=== PATIENT | male | born 1945 | race Caucasian/White ===

== ENCOUNTER → 2018-06-25 08:31 | Outpatient (CLI) | payer MEDICARE, SELFPAY ==
[2018-06-25 10:47] LABS: ALB/GLOB Ratio 0.8 RATIO (0.9-2.4); AST(SGOT) 17 U/L (15-37); Alanine Aminotransfer ALT/SGPT 26 U/L (16-61); Albumin, Serum 3.4 g/dL (3.2-5.0); Alkaline Phosphatase 98 U/L (45-117); Anion Gap 8 (5-15); BUN 21 mg/dL (7-18); BUN/Creat Ratio 19.8 RATIO (10-20); Calcium,Total 8.4 mg/dL (8.5-10.1); Chloride 107 mmol/L (98-107); Cholesterol 159 mg/dL (200); Creatinine, Serum 1.06 mg/dL (0.70-1.30); EST Glomerular Filtration Rate 73 mL/min (>60); Est Glom Filt Rate - Afr Amer 88 mL/min (>60); Globulin 4.1 g/dL (2.2-4.2); Glucose 109 mg/dL (74-106); High Density Lipoprotein 41 mg/dL; Potassium 4.1 mmol/L (3.5-5.1); Protein, Total 7.5 g/dL (6.4-8.2); Sodium Level 140 mmol/L (136-145); T4 Free Direct 0.96 ng/dL (0.76-1.46); Thyroid Stim Hormone (TSH) 2.77 uIU/mL (0.358-3.74); Triglycerides 106 mg/dL; Very Low Density Lipoprotein 21 mg/dL (5-40)
== END ==
PROVIDERS: Family Provider Family Medicine; PCP Family Medicine; Visit Provider Family Medicine
DX: I10 Essential (primary) hypertension (principal); E78.2 Mixed hyperlipidemia; E03.9 Hypothyroidism, unspecified
CPT/HCPCS: 36415; 80053; 80061; 84439; 84443

== ENCOUNTER → 2018-12-27 10:41 | Outpatient (CLI) | payer MEDICARE, SELFPAY ==
[2016-10-24 03:25] VITALS: BMI 29.8
--- NOTE | 2018-12-27 10:47 | RAD_ITS ---
STUDY: X-RAY - SOFT TISSUE NECK REASON FOR EXAM: Male, 73 years old. Right-sided neck swelling for one month TECHNIQUE: 2 view(s) of the neck were obtained. COMPARISON: None. FINDINGS: Normal visualized nasopharynx, oropharynx, hypopharynx. Normal epiglottis. Normal visualized subglottic tracheal air column. Normal prevertebral soft tissue structures. There are degenerative changes of the cervical spine with cervical spondylosis. The soft tissue structures are unremarkable. Remote deformity of the right second rib. RAD/Neck for Soft Tissue IMPRESSION: No soft tissue abnormalities are detected in the neck. Electronically Signed: Guzman Velazco MD at 2:42 EDT Tel , Service support ,
[2018-12-27 12:46] LABS: Absolute Lymphocyte Count 1.32 X10^3/ul (0.83-4.51); Absolute Neutrophil Count 8.2 X10^3/uL (2.0-7.7); Basophil# 0.05 X10^3/uL; Basophil% 0.5 % (0-1); Eosinophil# 0.32 X10^3/uL; Eosinophils% 2.9 % (0-5); Erythrocyte Sedimentation Rate 26 mm/hr (0-20); Hemoglobin 13.3 g/dl (13.0-16.5); Lymphocyte # 1.32 X10^3/ul (4.0); Lymphocyte % 12.1 % (19-41); Mean Corp Hgb Conc 31.7 g/gl (32-36); Mean Corpuscular Hgb 28.1 pg (27.0-32.0); Mean Corpuscular Volume 88.8 fL (80-94); Mean Platelet Vol. 9.3 fl (6.2-12.0); Monocyte# 0.93 X10^3/uL; Monocyte% 8.6 % (0-10); Neutrophil # 8.21 X10^3/uL (2.7-7.7); Neutrophil % 75.5 % (47-70); Platelet Count 353 K/mm3 (150-450); RBC Distribution Width SD 38.1 fl (35.1-43.9); Red Blood Count 4.73 M/mm3 (4.6-6.2); White Blood Count 10.9 K/mm3 (4.4-11.0)
[2018-12-27 12:53] LABS: POSITIVE COUNT NO; POSITIVE DIFFERENTIAL NO; POSITIVE MORPHOLOGY NO
[2018-12-27 12:54] LABS: Vitamin B12 957 pg/mL (211-911); Vitamin D,25 Hydroxy 52.5 ng/mL (29.95-100.01)
[2018-12-27 12:57] LABS: ALB/GLOB Ratio 0.7 RATIO (0.9-2.4); AST(SGOT) 18 U/L (15-37); Alanine Aminotransfer ALT/SGPT 28 U/L (16-61); Albumin, Serum 3.3 g/dL (3.2-5.0); Alkaline Phosphatase 116 U/L (45-117); Anion Gap 4 (5-15); BUN 26 mg/dL (7-18); BUN/Creat Ratio 25.7 RATIO (10-20); Chloride 101 mmol/L (98-107); Creatinine, Serum 1.01 mg/dL (0.70-1.30); EST Glomerular Filtration Rate 77 mL/min (>60); Est Glom Filt Rate - Afr Amer 93 mL/min (>60); Glucose 117 mg/dL (74-106); Potassium 3.5 mmol/L (3.5-5.1); Protein, Total 8.3 g/dL (6.4-8.2); Sodium Level 136 mmol/L (136-145); Thyroid Stim Hormone (TSH) 3.17 uIU/mL (0.358-3.74)
== END ==
PROVIDERS: Family Provider Family Medicine; PCP Family Medicine; Referring Provider Family Medicine; Visit Provider Family Medicine
DX: R59.0 Localized enlarged lymph nodes (principal); R53.83 Other fatigue
CPT/HCPCS: 36415; 70360; 80053; 82306; 82607; 84403; 84443; 85025; 85652; 86140

== ENCOUNTER → 2018-12-30 15:32 | Outpatient (CLI) | payer MEDICARE, SELFPAY ==
--- NOTE | 2018-12-30 15:34 | CT_ITS ---
We are attempting to reach Lisandro Zaldivar MD to discuss findings. An addendum with communication details will be sent when the communication is complete. STUDY: CT SOFT TISSUE NECK WITH CONTRAST REASON FOR EXAM: Male, 73 years old. Right-sided neck mass for 2 months RADIATION DOSAGE (If Supplied By Facility): CTDIvol = ( 23.05 ) mGy, DLP = ( 702.29 ) mGycm TECHNIQUE: The patient was scanned in a multi-detector CT scanner. High resolution transaxial imaging was performed following intravenous administration of Isovue 300 75 IV. Sagittal and coronal images were reconstructed. Individualized dose optimization techniques were used for this CT. COMPARISON: None. FINDINGS: SUPRAHYOID HEAD AND NECK ACCESS SERVICES ASSISTANT SPACE (INCLUDING SUPRAZYGOMATIC PORTION): Normal with no evidence of an accessory parotid lobe. No calcification in parotid duct. PARAPHARYNGEAL SPACE: Normal and symmetric. No evidence of asymmetric pterygoid plexus. RETROPHARYNGEAL SPACE: Normal with no enlarged nodes of Rouvier laterally CAROTID SPACE: Normal PERIVERTEBRAL SPACE: The prevertebral and paraspinal components are normal. PAROTID SPACE: Negative PHARYNGEAL MUCOSAL SPACE: The nasopharyngeal and oropharyngeal spaces including the tongue base are normal with no tonsillitis, adenoidal hypertrophy or any neoplastic processes. ORAL CAVITY : The mucosal surfaces including the anterior two thirds of the tongue and the submandibular and sublingual spaces are normal INFRAHYOID HEAD AND NECK: VISCERAL SPACE: The thyroid, trachea, esophagus, larynx and hypopharynx are normal. THE CAROTID, RETROPHARYNGEAL, PERIVERTEBRAL and POSTERIOR CERVICAL SPACES (Containing The Spinal Accessory Lymph Nodes): Normal . ORBITS AND PARANASAL SINUSES: Negative CERVICAL LYMPH NODES: There is adenopathy in the following places Level 3 right side: 4. Centimeter partially necrotic lymph node Level 6 right side (right paratracheal): 3.1 x 2.8 cm partially necrotic lymph node. Level 7 (superior mediastinal) Station 6 (left margin of aortic arch) 3.7 x 2.8 cm lymph node: Level 7 (anterior to the left brachiocephalic vein): 1.7 x 1.3 cm partially necrotic lymph node. Level 7 (precarinal): 3.7 x 2.7 cm lymph node. . CT/Soft Tissue Neck WITH Contrast IMPRESSION: Extensive adenopathy in the right side of the neck and in the superior mediastinum. The various spaces in the head and neck region failed to demonstrate any abnormal masses. A CT of the chest is suggested to further evaluate the rest of the mediastinum and the lungs Electronically Signed: Juice Torrez MD at 0:21 EDT Tel , Service support ,
== END ==
PROVIDERS: Family Provider Family Medicine; PCP Family Medicine; Referring Provider Family Medicine; Visit Provider Family Medicine
DX: R22.1 Localized swelling, mass and lump, neck (principal)
CPT/HCPCS: 70491; Q9967

== ENCOUNTER → 2019-01-11 07:39 | Outpatient (CLI) | payer MEDICARE, SELFPAY ==
--- NOTE | 2019-01-11 07:42 | CT_ITS ---
STUDY: CT CHEST WITH CONTRAST REASON FOR EXAM: Male, 73 years old. Lymphadenopathy. RADIATION DOSAGE (If Supplied By Facility): CTDIvol = ( 13.93 ) mGy, DLP = ( 570.73 ) mGycm TECHNIQUE: Transaxial imaging was performed following intravenous administration of 100 IV Isovue 300. Multiplanar coronal and sagittal images were reformatted. Individualized dose optimization techniques were used for this CT. COMPARISON: None. FINDINGS: There is a 2.3 cm x 1.4 cm spiculated nodule in the anterior lateral aspect of the left upper lobe. A neoplastic process should be ruled out. There is also evidence of a 5 mm noncalcified nodule in the superior segment of the right lower lobe as seen on axial image #62. There is a 8.2 mm noncalcified nodule in the medial superior segment of the left lower lobe. A noncalcified nodule is also seen in the posterior medial segment of the right lower lobe measuring 9.1 mm as seen on axial image #77. There is a 1.3 cm x 1 cm pleural-based nodule in the right lower lobe as seen on axial image #105. There is no demonstrated pleural abnormality. Normal heart and pericardium. There is a 4.1 cm x 3.2 cm soft tissue mass in the right paratracheal region. This also evidence of a soft tissue densities in the mediastinum extending into both hilar regions and subcarinal region. This is in keeping with diffuse spinal lymphadenopathy. Normal hilar regions. Normal enhanced pulmonary arteries. There is atherosclerotic calcification of the aortic arch arch . There are multi-level degenerative changes of the thoracic spine. There is a 4 cm x 4.4 cm cyst in the upper lateral aspect of the right kidney. CT/Chest WITH Contrast IMPRESSION: Mediastinal lymphadenopathy. 2.3 cm x 1.4 cm PICC with nodule in the left upper lobe with multiple smaller nodules scattered in both lungs as described. A primary lung carcinoma with metastasis should be ruled out. Electronically Signed: Brayan Chaves, at 14:54 EDT , Service support ,
== END ==
PROVIDERS: Family Provider Family Medicine; PCP Family Medicine; Referring Provider Family Medicine; Visit Provider Family Medicine
DX: R59.9 Enlarged lymph nodes, unspecified (principal)
CPT/HCPCS: 71260; Q9967

== ENCOUNTER → 2019-01-20 15:50 | Outpatient (CLI) | payer MEDICARE, SELFPAY ==
--- NOTE | 2019-01-20 | IMM_PTH ---
PATIENT: RAJAN ROSEN LOC: YEN U#:[id number] AGE/SX: 80/M ROOM: RE01/20/[address]: Dr. Felton Sanders MD : 1945 BED: DIS: SPEC #: [id number] RECD: 01/24/19 12:41 STATUS: COURTNEY REQ #: [id number] IVAN: 01/20/19 00:[address]: Felton Sanders DEPT: IMMUNOHISTOCHEMISTRY RECD BY: Jessica Patiño ENTERED: 01/24/19 12:42 SP TYPE: IMMUNO OTHR DR: Dr. Lisandro Zaldivar MD Tissues: Neck, NOS Procedures: RCC (add) NAPSIN A (add) CD45 (add) CK20 (add) CK5-6 (add) CK7 (add) CK8 (add) HEP PAR (add) TTF1 (add) Pankeratin (initial) P40 (add) PSAP (add) PHYSICIAN & [address] [address] SPECIMEN INFORMATION: Tissue Source: Right lower neck Clinical Info: Large cervical/mediastinal adenopathy; left lung lesion Specimen Number: [id number] CPT code: 08944, 71452 x11 METHODOLOGY: Deparaffinized sections of prefer/formalin-fixed tissue or PAP/DQ stained slides are incubated with monoclonal/polyclonal antibodies/oligonucleotide probes. Localization is made via biotin free immunoperoxidase method. Appropriate controls are performed and reacted as expected. Results on target cell population are indicated in the following table: RESULTS: ANTIBODY / CLONE RESULT AE1-3 (AE1/AE3/PCK26) positive CK7 (OV-TL12/30) positive CK8 (78esxiO77) positive CK20 (KS20.8) negative CD45 (RP2/18) negative TTF-1 (8G7G3/1) negative Napsin A (Rabbit Polyclonal) negative HepPar (OCh1E5) negative RCC (PN-15) negative PSAP (PASE/4LJ) negative CK5-6 (D5 & 1684) positive, rare P40 (BC28) negative These tests were developed and their performance characteristics determined by [facility]. They may not have been cleared or approved by the U.[place]. Food and Drug Administration. The FDA has determined that such clearance or approval is not necessary. 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 SJ:emily 4/16/19 Comment: IHC is not contributory for primary site of origin.
--- NOTE | 2019-01-20 17:50 | FLU_PTH ---
PATIENT: RAJAN ROSEN LOC: YEN U#:[id number] AGE/SX: 80/M ROOM: RE01/20/[address]: Dr. Felton Sanders MD : 1945 BED: DIS: SPEC #: [id number] RECD: 01/20/19 19:20 STATUS: COURTNEY COELTTE #: [id number] IVAN: 01/20/19 17:[address]: Felton Sanders DEPT: CYTOLOGY RECD BY: Reynaldo Vaca ENTERED: 01/21/19 10:50 SP TYPE: Fluid OTHR DR: Dr. Lisnadro Zaldivar MD Tissues: Cheek, NOS Procedures: Special Stain Group II Surgery Specimen Level IV Cytospin Fluid HEADER OPERATION: Not noted PRE-OP DIAGNOSIS: Large cervical/mediastinal adenopathy; left lung lesion TISSUE SUBMITTED: Right lower neck DIAGNOSIS CYTOLOGY Right lower neck, FNA (cytospin and cell block): Malignant cells present derived from poorly differentiated non-small cell carcinoma. See comment. SJ:rg 01/24/19 COMMENT Immunohistochemistry ([id number]) supports the above diagnosis, and it is noncontributory for primary site of origin. Clinical correlation and appropriate follow up are necessary. This case is discussed with Dr. Sanders on 01/24/19. Case has been reviewed in consultation with Dr. Vega who concurs with the above diagnosis. IDC:AM CYTOLOGY STUDY Slides are reviewed. CYTOLOGY GROSS Received is 40 ml of red cloudy fluid labeled with the patient's name and and designated per the requisition as right lower neck. Submitted for cytology preparation including cell block. / 01/21/19 TC:0 CPT: 27886, 23736
== END ==
PROVIDERS: Family Provider Family Medicine; PCP Family Medicine; Referring Provider Otolaryngology; Visit Provider Otolaryngology
DX: R59.9 Enlarged lymph nodes, unspecified (principal); R91.1 Solitary pulmonary nodule
CPT/HCPCS: 88108; 88305; 88313; 88341; 88342

== ENCOUNTER → 2019-01-25 10:56 | Outpatient (CLI) | payer MEDICARE, SELFPAY ==
--- NOTE | 2019-01-25 11:19 | CT_ITS ---
STUDY: CT ABDOMEN AND PELVIS WITH CONTRAST REASON FOR EXAM: Male, 73 years old. Lung cancer staging. RADIATION DOSAGE (If Supplied By Facility): CTDIvol = ( 13.92 ) mGy, DLP = ( 670.09 ) mGycm TECHNIQUE: Transaxial images were obtained from the dome of the diaphragm to the symphysis pubis without oral contrast. 100 IV Isovue 370 was administered. Sagittal and coronal images were reconstructed. Individualized dose optimization techniques were used for this CT. COMPARISON: None. FINDINGS: There is a 7.1 mm x 8.2 mm nodule in the posteromedial segment of the left lower lobe. There is also evidence of a 7.7 mm x 7.6 mm nodule in the posterior segment of the right lower lobe. The visualized portions of the heart are within normal limits. There is decreased attenuation of the liver consistent with steatosis. Normal gallbladder and extrahepatic biliary system. Normal spleen. Normal pancreas. Normal bilateral adrenal glands. There is a 4 cm x 4.3 cm cyst in the mid lower pole of the right kidney as well as smaller cysts in the lower pole of the right kidney. There is a 1.7 cm x 1.7 cm cyst in the mid pole of the left kidney. There is a small hiatal hernia. Normal small intestine. There are multiple colonic diverticula consistent with diverticulosis. The appendix is visualized and appears normal. There is diffuse atherosclerotic calcification of the abdominal aorta, without a demonstrated aneurysm. Normal inferior vena cava. Normal retroperitoneum. Bladder wall thickening although the bladder is not adequately distended. The prostate measures 3.4 cm x 4.5 cm. There is a small umbilical hernia containing fat. There are degenerative changes of the visualized lumbar spine. CT/Abdomen/Pelvis WITH Contrast IMPRESSION: Pulmonary nodules at the lung bases. Bilateral renal cysts. Electronically Signed: Brayan Chaves, at 12:59 EDT , Service support ,
== END ==
PROVIDERS: Family Provider Family Medicine; PCP Family Medicine; Referring Provider Family Medicine; Visit Provider Family Medicine
DX: C34.90 Malignant neoplasm of unspecified part of unspecified bronchus or lung (principal)
CPT/HCPCS: 74177; Q9967

== ENCOUNTER 2019-02-01 12:54 | Inpatient (IN) | payer MEDICARE, SELFPAY ==
[2019-01-26 14:44] VITALS: BMI 27.8
[2019-02-01] VITALS (15 sets, daily range): BP systolic 91–174; BP diastolic 60–84; PULSE 60–84; RESP 10–20; TEMP 36.4–36.8; O2SAT 96–100; BMI 27.4
--- NOTE | 2019-02-01 | FLU_PTH ---
PATIENT: RAJAN ROSEN LOC: MS2 U#:[id number] AGE/SX: 73/M ROOM: [facility] [place] RE02/01/[address]: Dr. Santi Liu MD : 1945 BED: 1 DIS: 02/02/2019 SPEC #: [id number] RECD: 02/01/19 11:56 STATUS: COURTNEY RERip #: [id number] IVAN: 02/01/19 00:[address]: Santi Liu DEPT: CYTOLOGY RECD BY: Talha Hunt ENTERED: 02/01/19 11:58 SP TYPE: Fluid OTHR DR: Dr. Lisandro Zaldivar MD Tissues: Left lung, NOS Procedures: Special Stain Group II Cytospin Fluid HEADER OPERATION: CT guided left lung biopsy PRE-OP DIAGNOSIS: Left lung mass TISSUE SUBMITTED: FNA left lung for cytology DIAGNOSIS CYTOLOGY Fine needle aspiration, left lung mass (smears): Negative for malignant cells. See comment. AM:emily 02/02/19 COMMENT The specimen is evaluated at the time of FNA by Dr. Lozano. Immediate Evaluation = Negative for malignant cells. The specimen contains rare macrophages and red blood cells. Clinical correlation is necessary. Case has been reviewed in consultation with Dr. Lozano who concurs with the above diagnosis. IDC:SJ CYTOLOGY STUDY Slides are reviewed. CYTOLOGY GROSS Received is <0.1 ml of bloody fluid labeled with the patient's name and and designated per the requisition as FNA left lung. Submitted for cytology preparation. / CC:cc 02/01/19 TC:5 CPT: 59764
--- NOTE | 2019-02-01 08:54 | CT_ITS ---
PROCEDURE: CT-guided left upper lobe mass core biopsy. Under conscious sedation. CLINICAL HISTORY: Male, [address] of the chest dated January 11, 2019 demonstrating a 2.3 x 1.4 cm spiculated nodule in the anterolateral left upper lobe. CONSENT: The entire procedure, risks, benefits and alternatives (including doing nothing) were discussed with the patient preprocedure. Risks presented included (but were not limited to) infection/abscess, bleeding, pain, reaction to medications and potential pneumothorax with need for chest tube.. All patient questions were answered satisfactorily. Written consent was obtained, witnessed and placed on the patient's chart. Time-Out Called: Yes Consent form signed: YES PT-PTT Levels Checked: Yes SEDATION: None. TECHNIQUE: The patient was taken into the CT suite and placed in the supine position with left arm elevated over the head. A short time was performed. Limited and directed noncontrast CT was performed through the upper lobes and the left mass was redemonstrated. An intended percutaneous site was identified and marked. The soft tissues within thoroughly prepped and draped in usual sterile manner. Local superficial and local deep anesthesia was administered utilizing approximately 4.5 cc of 1% lidocaine without epinephrine. Next, under fluoroscopic guidance and conscious sedation, CT fluoroscopy guided coaxial technique was utilized to advance the 19-gauge introducer through the anterolateral chest wall tissues to the level of the mass. This proved technically difficult secondary to patient breathing movements. Eventually the introducer was placed at the level of the margin of the lesion. A single 20-gauge core biopsy was performed and passed off with scant cells. After the first pass there was mild biopsy site hematoma and a moderate size pneumothorax. Therefore, additional passes were not made. Subsequently, a chest tube was placed in the upper anterior left chest. See dictation for that procedure. CT/Biopsy/Inj or Needle Placement IMPRESSION: Successful, CT-guided core biopsy complicated by biopsy site hematoma and prominent pneumothorax which required chest tube placement.. Blood loss: None. Conscious sedation medications: 2 mg Versed IV. 150 mcg fentanyl IV Electronically Signed: Yasir Baron MD at 12:39 EDT , Service support ,
[2019-02-01 09:17] LABS: Hematocrit 38.1 % (40-54); Hemoglobin 12.6 g/dl (13.0-16.5); Mean Corp Hgb Conc 33.1 g/gl (32-36); Mean Corpuscular Hgb 28.1 pg (27.0-32.0); Mean Platelet Vol. 8.3 fl (6.2-12.0); Platelet Count 281 K/mm3 (150-450); RBC Distribution Width CV 12.6 % (11.6-14.6); RBC Distribution Width SD 38.8 fl (35.1-43.9); Red Blood Count 4.48 M/mm3 (4.6-6.2)
[2019-02-01 09:18] LABS: Scan Indicated on CBC? Y/N NO
[2019-02-01 09:50] LABS: International Normalized Ratio 1.2; Partial Thromboplast Time 34.3 Seconds (24.1-36.2); Prothrombin Time (Protime)PT. 14.8 SECONDS (11.7-14.9)
[2019-02-01] MEDS: Midazolam 2 MG/2 ML Syringe IV ×4 (10:15→11:14)
[2019-02-01] MEDS: fentaNYL 100 MCG/2 ML Ampul IV ×4 (10:15→11:32)
[2019-02-01] MEDS: Bupivacaine 0.5% PF 10 ML VIAL OPERA.SITE (10:15)
--- NOTE | 2019-02-01 11:30 | CT_ITS ---
Procedure: CT-guided anterior chest tube placement. INDICATIONS: Enlarging left pneumothorax status post CT-guided core biopsy of lesion. CONSENT: The entire procedure, risks, benefits and alternatives (including doing nothing) were discussed with the patient preprocedure. Risks presented included (but were not limited to) infection/abscess, bleeding, pain, reaction to medications and potential need for chest tube.. All patient questions were answered satisfactorily. Written consent was obtained, witnessed and placed on the patient's chart. TECHNIQUE: A single coaxial 20-gauge core biopsy pass was obtained through the left upper lobe mass. There was immediate hemorrhage at the biopsy site and immediate development of a relatively prominent symptomatic pneumothorax. The anterior upper left chest was exposed and initial expeditiously prepped and draped in usual sterile manner. Local anesthesia was obtained with approximately 4 cc of 1% lidocaine without epinephrine. A 5 Kosovan system consisting of a central metal stylette and outer plastic catheter was rapidly advanced from an anterior approach through the anterior chest wall. The central stylette was then removed and the outer plastic catheter remained in place. Through this catheter an 035 wire was placed and coiled in the left upper lung pneumothorax cavity. The plastic access device was removed. Over the wire, successful dilatation up to 12 Kosovan was performed. Next, the pigtail catheter was fed over the wire and advanced into the pleural collection. The pigtail was formed. Approximately 250 cc of air was aspirated. The prepackaged stay device was utilized to fix the external portion of the chest tube to the patient's left chest wall. Immediate chest x-ray and delayed one-hour chest x-ray demonstrated no recurrent or residual left pneumothorax. CT/Chest without Contrast IMPRESSION: Successful anterior left upper lobe chest tube placement for pneumothorax. Electronically Signed: Yasir Baron MD at 17:15 EDT , Service support ,
--- NOTE | 2019-02-01 11:37 | RAD_ITS ---
STUDY: X-RAY CHEST REASON FOR EXAM: Male, 73 years old. Pneumothorax TECHNIQUE: Inspiration and expiration views COMPARISON: 10/24/2016 FINDINGS: Pleural catheter on the left. No residual pneumothorax is seen. Left chest wall emphysema. 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 There is no demonstrated pleural abnormality. Normal size heart. Normal mediastinum and gumaro. Normal visualized pulmonary arteries. Normal visualized aortic arch and descending thoracic aorta. Normal visualized thoracic spine. Normal visualized ribs, clavicles, and shoulders. There is no demonstrated abnormality of the visualized soft tissue structures of the upper abdomen. RAD/Chest Insp/Exp 2 View IMPRESSION: No residual pneumothorax is seen. 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 Electronically Signed: Guzman Velazco MD at 12:09 EDT Tel , Service support ,
[2019-02-01] MEDS: Bupivacaine 0.5% PF 10 ML VIAL SC (11:50)
--- NOTE | 2019-02-01 13:50 | RAD_ITS ---
STUDY: X-RAY CHEST REASON FOR EXAM: Male, 73 years old. 2 hours postlung biopsy. TECHNIQUE: A single AP frontal chest. COMPARISON: None. FINDINGS: There is stable appearance and position of a well-placed left pigtail chest tube. No residual or recurrent pneumothorax is identified. The lungs appear clear. There is no pleural effusion. The lungs are clear and expanded. There is no demonstrated pleural abnormality. Normal size heart. There is stable widening of the right superior mediastinum which may represent vascular congestion although mass/adenopathy can also present in this fashion. There is also fullness in the region of the aorticopulmonary window which may represent adenopathy or mass. Normal visualized pulmonary arteries. There is atherosclerotic calcification of the aortic arch with tortuosity. There is no acute osseous abnormality. There is no demonstrated abnormality of the visualized soft tissue structures of the upper abdomen. RAD/Chest Insp/Exp 2 View IMPRESSION: Well-positioned pigtail left chest tube. No residual pneumothorax. No pleural effusion. Calcified vascular plaque involving the thoracic aortic arch. Right superior mediastinal and aorticopulmonary window fullness as discussed above. Small amount of left chest wall subcutaneous emphysema. Electronically Signed: Yasir Baron MD at 16:13 EDT , Service support ,
[2019-02-01] MEDS: 0.9% NaCl Peripheral Flush Adult/Peds IV ×4 (14:32→21:55)
[2019-02-01] MEDS: Morphine 2 MG/ML Syringe IV ×2 (14:33→14:55)
--- NOTE | 2019-02-01 15:16 | NURSING ---
dr cooper notified per text of pt increased pain since portable CXR and developement of sonorous rhonchi, VSS on room air 100% pox, cap refill wnl, pt does not appear SOB-
[2019-02-01] MEDS: Ketorolac 30 MG/ML Syringe IV (15:50)
--- NOTE | 2019-02-01 16:02 | NURSING ---
pt placed on continuous pox
--- NOTE | 2019-02-01 16:28 | PCM.HP.STD ---
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 A chest tube was put in by the radiologist and he is being admitted to the hospitalist service. He had a PET scan on 01/31 but the results are not available at this time. Past Medical History Past Medical History (Chronic Problems): Chronic Problems (Last Reviewed 02/01/19 @ 16:44 by Doreen Bradshaw DO) Non-small cell carcinoma of lung (Chronic) HTN (hypertension) (Chronic) HLD (hyperlipidemia) (Chronic) Hypothyroidism (Chronic) Primary lung cancer (Chronic) Medical History: Medical History (Last Reviewed 02/01/19 @ 16:44 by Doreen Bradshaw DO) History of wisdom tooth extraction K08.409 adenoid surgery Allergies No Known Allergies Allergy (Verified 02/01/19 09:27) Home Medications: Ambulatory Orders Medication Instructions Recorded Amlodipine [Norvasc] 5 mg PO DAILY 10/24/16 Ascorbic Acid [Vitamin C] 1,000 mg PO DAILY 10/24/16 Aspirin [Aspirin EC] 81 mg PO DAILY 10/24/16 Cholecalciferol (Vitamin D3) 2,000 unit PO DAILY 10/24/16 [Vitamin D3] Cholesterol Gold 1 tablet PO DAILY 10/24/16 Doxazosin Mesylate [Cardura] 2 mg PO DAILY 10/24/16 Levothyroxine [Synthroid] 75 mcg PO DAILY 10/24/16 Multivitamin [Multiple Vitamins] 1 each PO DAILY 10/24/16 Omeprazole [Prilosec] 10 mg PO DAILY 10/24/16 Atorvastatin Calcium [Lipitor] 20 mg PO QHS 01/25/19 Surgical History: Surgical History (Last Reviewed 02/01/19 @ 16:44 by Doreen Bradshaw DO) History of tonsillectomy Z90.89 Lives: Spouse/ Significant Other Smoking Status: Never smoker Tobacco Use: Non-smoker Alcohol: Occasional Drugs: None - *Family History Maternal Family History: Family History (Last Reviewed 02/01/19 @ 19:33 by Doreen Bradshaw DO) Uncle Cancer Mother CVA (cerebral vascular accident) Review of Systems Constitutional: Reports: Weight Change - mild weight loss. Denies: Chills, Fever HEENT: Denies: Head Aches, Sinus Congestion, Sinus Drainage Cardiovascular: Reports: Chest Pain - only after the chest tube insertion. Denies: Edema, Heaviness, Light Headedness, Palpitations Respiratory: Reports: Shortness of Breath, Shortness of breath at rest. Denies: Cough, Sputum production, Wheezing Gastrointestinal: Denies: Abdominal Pain, Nausea, Vomiting Genitourinary: Denies: Dysuria Musculoskeletal: Denies: Joint Pain, Joint Tenderness Skin: Denies: Rash, Wounds Neurological: Denies: Numbness, Tingling, Focal weakness Psychiatric: Denies: Anxiety, Depression, Homicidal Ideations, Suicidal Ideations Hematologic/ Lymphatic: Denies: Easy Bruising, Easy Bleeding VTE Information - Inpt Only VTE Present on Admission: No VTE Mechan Device Prophylaxis: Knee High NATALIA Hose VTE Pharm Prophylaxis ordered?: No Reason prophylaxis not ordered:: Medical Contraindication - just had a lung biopsy and a chest tube inserted - increased risk of bleeding....start in 24 hours if no bleeding Patient Problems: Active and Suspected Problems (Last Reviewed 02/01/19 @ 16:44 by Doreen Bradshaw DO) Pneumothorax, left (Acute) - Physical Exam General: Alert, Oriented x3, Cooperative, - - looked to be in pain at the start of my exam but, after Toradol kicked in he relaxed and said the pain was better HEENT: Atraumatic, PERRLA, EOMI, Normocephalic Oral: Moist Mucosa Neck: Supple, No JVD, Trachea Midline, - - R cerival enlarged lymph nodes Lungs: Rhonchi - rare, - - Chest tube present on the left Cardiovascular: Regular rate, Regular Rhythm, Normal S1, Normal S2, No murmurs, No Ectopic Activity, No rub noted, No Gallop Abdomen: Bowel Sounds Present, Soft, Non Tender, Non-Distended Extremities: No clubbing, No cyanosis, No edema, Peripheral Pulses Normal Skin: No rashes Neurological: Cranial nerves II-XII grossly intact, Neuro grossly intact Psych/Mental Status: Normal Affect, Appropriate Vital Signs Temp Pulse Resp BP Pulse Ox 97.8 F 60 18 134/77 H 98 02/01/19 16:01 02/01/19 16:01 02/01/19 16:01 02/01/19 16:01 02/01/19 16:01 Oxygen Flow Rate (L/min) [15] 2 Oxygen Flow Rate (L/min) [14] 2 Oxygen Flow Rate (L/min) [13] 2 Oxygen Flow Rate (L/min) [12] 2 Oxygen Flow Rate (L/min) [11] 2 Oxygen Flow Rate (L/min) [10] 2 Oxygen Flow Rate (L/min) [9] 2 Oxygen Flow Rate (L/min) [8] 2 Oxygen Flow Rate (L/min) [6] 2 Oxygen Flow Rate (L/min) [5] 2 Oxygen Flow Rate (L/min) [4] 2 Oxygen Flow Rate (L/min) [3] 2 Oxygen Flow Rate (L/min) [2] 2 Oxygen Flow Rate (L/min) 2 Oxygen Delivery Method [15] Nasal Cannula Oxygen Delivery Method [14] Nasal Cannula Oxygen Delivery Method [13] Nasal Cannula Oxygen Delivery Method [12] Nasal Cannula Oxygen Delivery Method [11] Nasal Cannula Oxygen Delivery Method [10] Nasal Cannula Oxygen Delivery Method [9] Nasal Cannula Oxygen Delivery Method [8] Nasal Cannula Oxygen Delivery Method [7] Nasal Cannula Oxygen Delivery Method [6] Nasal Cannula Oxygen Delivery Method [5] Nasal Cannula Oxygen Delivery Method [4] Nasal Cannula Oxygen Delivery Method [3] Nasal Cannula Oxygen Delivery Method [2] Nasal Cannula Oxygen Delivery Method [1 ( Room Air Initial Baseline)] Oxygen Delivery Method Room Air Weight: 169 lb 15.622 oz Body Mass Index (BMI) 27.4 Laboratory Tests Past 24 Hrs 02/01/19 02/01/19 02/01/19 09:08 09:08 09:11 WBC 12.0 H Cancelled Corrected WBC Cancelled RBC 4.48 L Cancelled Hgb 12.6 L Cancelled Hct 38.1 L Cancelled MCV 85.0 Cancelled MCH 28.1 Cancelled MCHC 33.1 Cancelled RDW 12.6 Cancelled RDW Differential 38.8 Cancelled Plt Count 281 Cancelled MPV 8.3 Cancelled Immature Gran % (Auto) Cancelled Neut % (Auto) Cancelled Lymph % (Auto) Cancelled [place] % (Auto) Cancelled Eos % (Auto) Cancelled Baso % (Auto) Cancelled Immature Gran # (Auto) Cancelled Absolute Neuts (auto) Cancelled Absolute Lymphs (auto) Cancelled Absolute Monos (auto) Cancelled Total Counted Cancelled Neutrophils % (Manual) Cancelled Band Neutrophils % Cancelled Lymphocytes % (Manual) Cancelled Monocytes % (Manual) Cancelled Eosinophils % (Manual) Cancelled Basophils % (Manual) Cancelled Metamyelocytes % Cancelled Myelocytes % Cancelled Promyelocytes % Cancelled Blast Cells % Cancelled Plasma Cell % (Manual) Cancelled Other Cells % Cancelled Lymphocytes # Cancelled Nucleated RBCs/100 WBC Cancelled Differential Comment Cancelled Diff Path Review Cancelled Hypersegmented Neuts Cancelled Atypical Lymphocytes Cancelled Reactive Lymphocytes Cancelled Smudge Cells Cancelled Eosinophilia # Cancelled Basophilia # Cancelled Toxic Granulation Cancelled Dohle Bodies Cancelled Kali Rods Cancelled Platelet Estimate Cancelled Plt Morphology Comment Cancelled RBC Morphology Cancelled Polychromasia Cancelled Hypochromasia Cancelled Poikilocytosis Cancelled Basophilic Stippling Cancelled Anisocytosis Cancelled Microcytosis Cancelled Macrocytosis Cancelled Spherocytes Cancelled Sickle Cells Cancelled Target Cells Cancelled Tear Drop Cells Cancelled Ovalocytes Cancelled Stomatocytes Cancelled [place] Bodies Cancelled Samantha Cells Cancelled Bite Cells Cancelled Acanthocytes (Spur) Cancelled Rouleaux Cancelled Schistocytes Cancelled PT 14.8 INR 1.2 APTT 34.3 02/01/19 09:11 WBC Corrected WBC RBC Hgb Hct MCV MCH MCHC RDW RDW Differential Plt Count MPV Immature Gran % (Auto) Neut % (Auto) Lymph % (Auto) [place] % (Auto) Eos % (Auto) Baso % (Auto) Immature Gran # (Auto) Absolute Neuts (auto) Absolute Lymphs (auto) Absolute Monos (auto) Total Counted Neutrophils % (Manual) Band Neutrophils % Lymphocytes % (Manual) Monocytes % (Manual) Eosinophils % (Manual) Basophils % (Manual) Metamyelocytes % Myelocytes % Promyelocytes % Blast Cells % Plasma Cell % (Manual) Other Cells % Lymphocytes # Nucleated RBCs/100 WBC Differential Comment Diff Path Review Hypersegmented Neuts Atypical Lymphocytes Reactive Lymphocytes Smudge Cells Eosinophilia # Basophilia # Toxic Granulation Dohle Bodies Kali Rods Platelet Estimate Plt Morphology Comment RBC Morphology Polychromasia Hypochromasia Poikilocytosis Basophilic Stippling Anisocytosis Microcytosis Macrocytosis Spherocytes Sickle Cells Target Cells Tear Drop Cells Ovalocytes Stomatocytes Oswald-[place] Bodies Samantha Cells Bite Cells Acanthocytes (Spur) Rouleaux Schistocytes PT Cancelled INR Cancelled APTT Cancelled Assessment/Plan All Active Problems (Last Reviewed 02/01/19 @ 16:44 by Doreen Bradshaw DO) Pneumothorax, left (Acute) Metastasis to mediastinal lymph node (Acute) Metastasis to cervical lymph node (Acute) Lung metastases (Acute) Impressions 1. Left pneumothorax after a lung biopsy 2. Recently diagnosed non-small cell lung cancer with cervical node metastasis, mediastinal node metastasis and metastasis within the lungs. 3. Hypertension 4. Hyperlipidemia 5. Hypothyroidsm 6. S/P left chest tube consult Dr. Pat to manage the chest tube Toradol 15 mg Q6H X 6 doses Fentanyl for breakthrough severe pain Lab ordered for the morning Code Visit Inpatient E&M: [id number] Init Hosp L2
--- NOTE | 2019-02-01 18:03 | CON.PCM_ITS ---
Problem List (1) Pneumothorax, left Status: Acute Reason for Consult Date of Consultation: 02/01/19 History of Present Illness: The patient is a 73 year old M who was hospitalized with a iatrogenic left pneumothorax status post interventional radiology left lung biopsy performed by Dr. Baron. I have been asked by Dr. Bradshaw to help follow the patient with the left pigtail tube thoracostomy and I have already discussed the patient's condition with Dr. Baron who also follows his postintervention patient's. The patient has non-small cell lung cancer which is metastatic. He underwent a left lung biopsy today and immediately pneumothorax was identified. Dr. Baron placed a pigtail catheter with immediate resolution of the pneumothorax. A additional follow-up chest x-ray demonstrated persistent resolution. The patient has a Heimlich flutter valve in place. Previously today apparently he was quite uncomfortable but received Toradol and now is feeling much better. On clinical exam and chest x-ray does have some subcutaneous emphysema of the left chest. His O2 saturation has been stable. Past Medical History Past Medical History (Chronic Problems): Chronic Problems (Last Reviewed 02/01/19 @ 16:44 by Doreen Bradshaw DO) Non-small cell carcinoma of lung (Chronic) HTN (hypertension) (Chronic) HLD (hyperlipidemia) (Chronic) Hypothyroidism (Chronic) Primary lung cancer (Chronic) Medical History: Medical History (Last Reviewed 02/01/19 @ 16:44 by Doreen Bradshaw DO) History of wisdom tooth extraction K08.409 adenoid surgery Allergies No Known Allergies Allergy (Verified 02/01/19 09:27) Home Medications: Ambulatory Orders Medication Instructions Recorded Amlodipine [Norvasc] 5 mg PO DAILY 10/24/16 Ascorbic Acid [Vitamin C] 1,000 mg PO DAILY 10/24/16 Aspirin [Aspirin EC] 81 mg PO DAILY 10/24/16 Cholecalciferol (Vitamin D3) 2,000 unit PO DAILY 10/24/16 [Vitamin D3] Cholesterol Gold 1 tablet PO DAILY 10/24/16 Doxazosin Mesylate [Cardura] 2 mg PO DAILY 10/24/16 Levothyroxine [Synthroid] 75 mcg PO DAILY 10/24/16 Multivitamin [Multiple Vitamins] 1 each PO DAILY 10/24/16 Omeprazole [Prilosec] 10 mg PO DAILY 10/24/16 Atorvastatin Calcium [Lipitor] 20 mg PO QHS 01/25/19 Surgical History: Surgical History (Last Reviewed 02/01/19 @ 16:44 by Doreen Bradshaw DO) History of tonsillectomy Z90.89 Lives: Spouse/ Significant Other Smoking Status: Never smoker Tobacco Use: Non-smoker Alcohol: Occasional Drugs: None Patient Problems: Active and Suspected Problems (Last Reviewed 02/01/19 @ 16:44 by Doreen Bradshaw DO) Pneumothorax, left (Acute) - Physical Exam Lungs: Clear to auscultation, Normal air movement, No rhonchi, No wheeze - Left chest wall has subcutaneous emphysema noted with slight tenderness. The Heimlich valve is inspected there is movement within the tubing of a small water bleb but I am not seeing movement to the degree that would suggest ongoing air leak. Vital Signs Temp Pulse Resp BP Pulse Ox 97.8 F 60 18 134/77 H 98 02/01/19 16:01 02/01/19 16:01 02/01/19 16:01 02/01/19 16:01 02/01/19 16:01 Oxygen Flow Rate (L/min) [15] 2 Oxygen Flow Rate (L/min) [14] 2 Oxygen Flow Rate (L/min) [13] 2 Oxygen Flow Rate (L/min) [12] 2 Oxygen Flow Rate (L/min) [11] 2 Oxygen Flow Rate (L/min) [10] 2 Oxygen Flow Rate (L/min) [9] 2 Oxygen Flow Rate (L/min) [8] 2 Oxygen Flow Rate (L/min) [6] 2 Oxygen Flow Rate (L/min) [5] 2 Oxygen Flow Rate (L/min) [4] 2 Oxygen Flow Rate (L/min) [3] 2 Oxygen Flow Rate (L/min) [2] 2 Oxygen Flow Rate (L/min) 2 Oxygen Delivery Method [15] Nasal Cannula Oxygen Delivery Method [14] Nasal Cannula Oxygen Delivery Method [13] Nasal Cannula Oxygen Delivery Method [12] Nasal Cannula Oxygen Delivery Method [11] Nasal Cannula Oxygen Delivery Method [10] Nasal Cannula Oxygen Delivery Method [9] Nasal Cannula Oxygen Delivery Method [8] Nasal Cannula Oxygen Delivery Method [7] Nasal Cannula Oxygen Delivery Method [6] Nasal Cannula Oxygen Delivery Method [5] Nasal Cannula Oxygen Delivery Method [4] Nasal Cannula Oxygen Delivery Method [3] Nasal Cannula Oxygen Delivery Method [2] Nasal Cannula Oxygen Delivery Method [1 ( Room Air Initial Baseline)] Oxygen Delivery Method Room Air Weight: 169 lb 15.622 oz Body Mass Index (BMI) 27.4 Laboratory Tests Past 24 Hrs 02/01/19 02/01/19 02/01/19 09:08 09:08 09:11 WBC 12.0 H Cancelled Corrected WBC Cancelled RBC 4.48 L Cancelled Hgb 12.6 L Cancelled Hct 38.1 L Cancelled MCV 85.0 Cancelled MCH 28.1 Cancelled MCHC 33.1 Cancelled RDW 12.6 Cancelled RDW Differential 38.8 Cancelled Plt Count 281 Cancelled MPV 8.3 Cancelled Immature Gran % (Auto) Cancelled Neut % (Auto) Cancelled Lymph % (Auto) Cancelled [place] % (Auto) Cancelled Eos % (Auto) Cancelled Baso % (Auto) Cancelled Immature Gran # (Auto) Cancelled Absolute Neuts (auto) Cancelled Absolute Lymphs (auto) Cancelled Absolute Monos (auto) Cancelled Total Counted Cancelled Neutrophils % (Manual) Cancelled Band Neutrophils % Cancelled Lymphocytes % (Manual) Cancelled Monocytes % (Manual) Cancelled Eosinophils % (Manual) Cancelled Basophils % (Manual) Cancelled Metamyelocytes % Cancelled Myelocytes % Cancelled Promyelocytes % Cancelled Blast Cells % Cancelled Plasma Cell % (Manual) Cancelled Other Cells % Cancelled Lymphocytes # Cancelled Nucleated RBCs/100 WBC Cancelled Differential Comment Cancelled Diff Path Review Cancelled Hypersegmented Neuts Cancelled Atypical Lymphocytes Cancelled Reactive Lymphocytes Cancelled Smudge Cells Cancelled Eosinophilia # Cancelled Basophilia # Cancelled Toxic Granulation Cancelled Dohle Bodies Cancelled Kali Rods Cancelled Platelet Estimate Cancelled Plt Morphology Comment Cancelled RBC Morphology Cancelled Polychromasia Cancelled Hypochromasia Cancelled Poikilocytosis Cancelled Basophilic Stippling Cancelled Anisocytosis Cancelled Microcytosis Cancelled Macrocytosis Cancelled Spherocytes Cancelled Sickle Cells Cancelled Target Cells Cancelled Tear Drop Cells Cancelled Ovalocytes Cancelled Stomatocytes Cancelled Oswald-[place] Bodies Cancelled [place] Cells Cancelled Bite Cells Cancelled Acanthocytes (Spur) Cancelled Rouleaux Cancelled Schistocytes Cancelled PT 14.8 INR 1.2 APTT 34.3 02/01/19 09:11 WBC Corrected WBC RBC Hgb Hct MCV MCH MCHC RDW RDW Differential Plt Count MPV Immature Gran % (Auto) Neut % (Auto) Lymph % (Auto) [place] % (Auto) Eos % (Auto) Baso % (Auto) Immature Gran # (Auto) Absolute Neuts (auto) Absolute Lymphs (auto) Absolute Monos (auto) Total Counted Neutrophils % (Manual) Band Neutrophils % Lymphocytes % (Manual) Monocytes % (Manual) Eosinophils % (Manual) Basophils % (Manual) Metamyelocytes % Myelocytes % Promyelocytes % Blast Cells % Plasma Cell % (Manual) Other Cells % Lymphocytes # Nucleated RBCs/100 WBC Differential Comment Diff Path Review Hypersegmented Neuts Atypical Lymphocytes Reactive Lymphocytes Smudge Cells Eosinophilia # Basophilia # Toxic Granulation Dohle Bodies Kali Rods Platelet Estimate Plt Morphology Comment RBC Morphology Polychromasia Hypochromasia Poikilocytosis Basophilic Stippling Anisocytosis Microcytosis Macrocytosis Spherocytes Sickle Cells Target Cells Tear Drop Cells Ovalocytes Stomatocytes Oswald-[place] Bodies Samantha Cells Bite Cells Acanthocytes (Spur) Rouleaux Schistocytes PT Cancelled INR Cancelled APTT Cancelled Assessment/Plan All Active Problems (Last Reviewed 02/01/19 @ 16:44 by Doreen Bradshaw DO) Pneumothorax, left (Acute) Metastasis to mediastinal lymph node (Acute) Metastasis to cervical lymph node (Acute) Lung metastases (Acute) I concur with Dr. Baron's ongoing management. Based upon chest x-ray and clinical inspection of the Heimlich valve it does not appear that he has an active ongoing air leak. A chest x-ray is scheduled for tomorrow morning. I would concur with Dr. Baron if no pneumothorax is identified then removal of the pigtail would be quite appropriate. I will continue to follow-up if more aggressive surgical intervention is required. I certainly appreciate the kind opportunity of assisting with the surgical care Bala Pat M.D., F.A.C.S.
[2019-02-01] MEDS: HYDROcodone Bitartrate/Apap 5/325 Tablet PO (20:11)
[2019-02-01] MEDS: Ketorolac 15 MG/ML Vial IV (21:55)
[2019-02-01] MEDS: Atorvastatin Calcium 20 MG Tablet PO (21:55)
[2019-02-02 03:00] VITALS: RESP 18; O2SAT 100
[2019-02-02 03:18] VITALS: BP 120/77; PULSE 64; RESP 18; TEMP 36.8; O2SAT 100
[2019-02-02] MEDS: 0.9% NaCl Peripheral Flush Adult/Peds IV (04:50)
[2019-02-02] MEDS: Ketorolac 15 MG/ML Vial IV (04:50)
[2019-02-02] MEDS: Levothyroxine 75 MCG Tablet PO (04:55)
--- NOTE | 2019-02-02 06:19 | RAD_ITS ---
STUDY: X-RAY CHEST REASON FOR EXAM: Male, 73 years old. Follow-up pneumothorax. TECHNIQUE: Upright portable AP chest. COMPARISON: February 01, 2019 at 1:42 PM. FINDINGS: Stable appearance and positioning of the left basilar inserted apically oriented chest tube. There is no residual or recurrent pneumothorax. No shift of central structures. There is mild central vascular congestion. Otherwise, the cardiomediastinal silhouette is remarkable only for calcified vascular plaque involving the thoracic aortic arch. There is no pleural effusion. There is no acute osseous abnormality. The upper abdomen structures within the field of view appear unremarkable. RAD/Chest 1 View IMPRESSION: Stable left apical chest tube. No residual or recurrent pneumothorax. No pleural effusion. Mild central vascular congestion. Electronically Signed: Yasir Baron MD at 7:31 EDT , Service support ,
--- NOTE | 2019-02-02 06:20 | PCM.PN.SRG ---
Patient Problems: Active and Suspected Problems (Last Reviewed 02/01/19 @ 16:44 by Doreen Bradshaw DO) Pneumothorax, left (Acute) Subjective: Pt comfortable, slept well last night - Physical Exam Lungs: Clear to auscultation, Normal air movement, No wheeze - Heimlich with minimal fluid movement and no obvious leak Vital Signs Temp Pulse Resp BP Pulse Ox 98.2 F 64 18 120/77 100 02/02/19 03:18 02/02/19 03:18 02/02/19 03:18 02/02/19 03:18 02/02/19 03:18 Oxygen Flow Rate (L/min) [15] 2 Oxygen Flow Rate (L/min) [14] 2 Oxygen Flow Rate (L/min) [13] 2 Oxygen Flow Rate (L/min) [12] 2 Oxygen Flow Rate (L/min) [11] 2 Oxygen Flow Rate (L/min) [10] 2 Oxygen Flow Rate (L/min) [9] 2 Oxygen Flow Rate (L/min) [8] 2 Oxygen Flow Rate (L/min) [6] 2 Oxygen Flow Rate (L/min) [5] 2 Oxygen Flow Rate (L/min) [4] 2 Oxygen Flow Rate (L/min) [3] 2 Oxygen Flow Rate (L/min) [2] 2 Oxygen Flow Rate (L/min) 2 Oxygen Delivery Method [15] Nasal Cannula Oxygen Delivery Method [14] Nasal Cannula Oxygen Delivery Method [13] Nasal Cannula Oxygen Delivery Method [12] Nasal Cannula Oxygen Delivery Method [11] Nasal Cannula Oxygen Delivery Method [10] Nasal Cannula Oxygen Delivery Method [9] Nasal Cannula Oxygen Delivery Method [8] Nasal Cannula Oxygen Delivery Method [7] Nasal Cannula Oxygen Delivery Method [6] Nasal Cannula Oxygen Delivery Method [5] Nasal Cannula Oxygen Delivery Method [4] Nasal Cannula Oxygen Delivery Method [3] Nasal Cannula Oxygen Delivery Method [2] Nasal Cannula Oxygen Delivery Method [1 ( Room Air Initial Baseline)] Oxygen Delivery Method Nasal Cannula Weight: 169 lb 15.622 oz Body Mass Index (BMI) 27.4 Intake and Output for Last 24 Hours 01/31/19 02/01/19 02/02/19 23:59 23:59 23:59 Intake Total 630 / 630 Output Total 225 / 225 Balance 405 / 405 Laboratory Tests Past 24 Hrs 02/01/19 02/01/1902/01/19 09:08 09:08 09:11 WBC 12.0 H Cancelled Corrected WBC Cancelled RBC 4.48 L Cancelled Hgb 12.6 L Cancelled Hct 38.1 L Cancelled MCV 85.0 Cancelled MCH 28.1 Cancelled MCHC 33.1 Cancelled RDW 12.6 Cancelled RDW Differential 38.8 Cancelled Plt Count 281 Cancelled MPV 8.3 Cancelled Immature Gran % (Auto) Cancelled Neut % (Auto) Cancelled Lymph % (Auto) Cancelled [place] % (Auto) Cancelled Eos % (Auto) Cancelled Baso % (Auto) Cancelled Immature Gran # (Auto) Cancelled Absolute Neuts (auto) Cancelled Absolute Lymphs (auto) Cancelled Absolute Monos (auto) Cancelled Total Counted Cancelled Neutrophils % (Manual) Cancelled Band Neutrophils % Cancelled Lymphocytes % (Manual) Cancelled Monocytes % (Manual) Cancelled Eosinophils % (Manual) Cancelled Basophils % (Manual) Cancelled Metamyelocytes % Cancelled Myelocytes % Cancelled Promyelocytes % Cancelled Blast Cells % Cancelled Plasma Cell % (Manual) Cancelled Other Cells % Cancelled Lymphocytes # Cancelled Nucleated RBCs/100 WBC Cancelled Differential Comment Cancelled Diff Path Review Cancelled Hypersegmented Neuts Cancelled Atypical Lymphocytes Cancelled Reactive Lymphocytes Cancelled Smudge Cells Cancelled Eosinophilia # Cancelled Basophilia # Cancelled Toxic Granulation Cancelled Dohle Bodies Cancelled Kali Rods Cancelled Platelet Estimate Cancelled Plt Morphology Comment Cancelled RBC Morphology Cancelled Polychromasia Cancelled Hypochromasia Cancelled Poikilocytosis Cancelled Basophilic Stippling Cancelled Anisocytosis Cancelled Microcytosis Cancelled Macrocytosis Cancelled Spherocytes Cancelled Sickle Cells Cancelled Target Cells Cancelled Tear Drop Cells Cancelled Ovalocytes Cancelled Stomatocytes Cancelled Oswald-[place] Bodies Cancelled Samantha Cells Cancelled Bite Cells Cancelled Acanthocytes (Spur) Cancelled Rouleaux Cancelled Schistocytes Cancelled PT 14.8 INR 1.2 APTT 34.3 02/01/19 09:11 WBC Corrected WBC RBC Hgb Hct MCV MCH MCHC RDW RDW Differential Plt Count MPV Immature Gran % (Auto) Neut % (Auto) Lymph % (Auto) [place] % (Auto) Eos % (Auto) Baso % (Auto) Immature Gran # (Auto) Absolute Neuts (auto) Absolute Lymphs (auto) Absolute Monos (auto) Total Counted Neutrophils % (Manual) Band Neutrophils % Lymphocytes % (Manual) Monocytes % (Manual) Eosinophils % (Manual) Basophils % (Manual) Metamyelocytes % Myelocytes % Promyelocytes % Blast Cells % Plasma Cell % (Manual) Other Cells % Lymphocytes # Nucleated RBCs/100 WBC Differential Comment Diff Path Review Hypersegmented Neuts Atypical Lymphocytes Reactive Lymphocytes Smudge Cells Eosinophilia # Basophilia # Toxic Granulation Dohle Bodies Kali Rods Platelet Estimate Plt Morphology Comment RBC Morphology Polychromasia Hypochromasia Poikilocytosis Basophilic Stippling Anisocytosis Microcytosis Macrocytosis Spherocytes Sickle Cells Target Cells Tear Drop Cells Ovalocytes Stomatocytes Oswald-[place] Bodies [place] Cells Bite Cells Acanthocytes (Spur) Rouleaux Schistocytes PT Cancelled INR Cancelled APTT Cancelled Medical Necessity - Tobacco Use Smoking Status: Never smoker Tobacco Use: Non-smoker Assessment/Plan All Active Problems (Last Reviewed 02/01/19 @ 16:44 by Doreen Bradshaw DO) Pneumothorax, left (Acute) Metastasis to mediastinal lymph node (Acute) Metastasis to cervical lymph node (Acute) Lung metastases (Acute) CXR in dept I anticipate Dr Baron will be able to remove the pigtail as planned.
[2019-02-02 06:38] LABS: Hematocrit 35.6 % (40-54); Hemoglobin 11.6 g/dl (13.0-16.5); Mean Corp Hgb Conc 32.6 g/gl (32-36); Mean Corpuscular Hgb 27.8 pg (27.0-32.0); Mean Corpuscular Volume 85.2 fL (80-94); Mean Platelet Vol. 8.2 fl (6.2-12.0); Platelet Count 243 K/mm3 (150-450); RBC Distribution Width CV 12.7 % (11.6-14.6); RBC Distribution Width SD 39.4 fl (35.1-43.9); Red Blood Count 4.18 M/mm3 (4.6-6.2); White Blood Count 12.5 K/mm3 (4.4-11.0)
[2019-02-02 06:41] LABS: Scan Indicated on CBC? Y/N NO
[2019-02-02] MEDS: HYDROcodone Bitartrate/Apap 5/325 Tablet PO (06:42)
[2019-02-02 07:00] LABS: Anion Gap 5 (5-15); BUN 23 mg/dL (7-18); BUN/Creat Ratio 26.2 RATIO (10-20); Calcium,Total 8.4 mg/dL (8.5-10.1); Chloride 106 mmol/L (98-107); Creatinine, Serum 0.88 mg/dL (0.70-1.30); EST Glomerular Filtration Rate 90 mL/min (>60); Est Glom Filt Rate - Afr Amer 109 mL/min (>60); Estimated Creatinine Clearance 67.47 ml/min; Glucose 109 mg/dL (74-106); Potassium 4.1 mmol/L (3.5-5.1); Sodium Level 138 mmol/L (136-145)
--- NOTE | 2019-02-02 07:02 | PCM.PN.BLA ---
Progress Note CXR does not show PTX to my review Pigtail may be removed
[2019-02-02 07:05] VITALS: O2SAT 94
--- NOTE | 2019-02-02 07:26 | PCM.PN.BLA ---
Progress Note Afebrile Vital signs are stable Pulse ox is 100% on 2 L nasal cannula. Chest x-ray today shows no pneumothorax. The pigtail chest tube will be removed by Dr. Baron. CBC shows a white blood cell count of 12.5 which is unchanged from 02/01/2019. Hemoglobin is 11.6 and platelets are within normal limits. BMP shows an increased BUN at 23 with a creatinine of 0.88 and a BUN/creatinine ratio of 26.2.
[2019-02-02] MEDS: Ibuprofen 600 MG Tablet PO (08:49)
[2019-02-02] MEDS: Doxazosin 1 MG Tablet 2 MG PO (08:50)
[2019-02-02] MEDS: 0.9% Normal Saline 1,000 ML 999 ML IV (08:50)
[2019-02-02 09:00] VITALS: BP 132/71; PULSE 67; RESP 18; TEMP 36.7; O2SAT 99
--- NOTE | 2019-02-02 09:22 | NURSING ---
left upper chest dressing D&I, no crepitus noted around dressing, pt appears in no acute distress, respirations are even and non labored @ 18/min, pt on room air and POX is 100%-Ct scan notified that per dr cooper and dr daniel notes, CT interventional radiologist should be able to pull chest tube today, she said she will give dr edmondson the msg-pt anxious for d/c
--- NOTE | 2019-02-02 12:13 | CASEMGMT ---
RN LAURA DEPLOYMENT SPECIALIST CM to room to meet with patient for initial transition planning/care coordination assessment. RN LAURA introduced self and role at [facility]. Pt voices understanding and consents to assessment at this time. Pt resting in bed in no distress at this time. and daughter, Lynn, @ bedside. Pt is A/O at this time and answers all questions appropriately. Care providers, pharmacy, and demographics verified at this time. PCP: Kayley Specialists: Keron Preferred Pharmacy: [facility] Insurance: [employer] Prescription Benefit: Yes Living Will/HPOA: Has both LW and HCPOA, who is his , Genie. AD not on file. states she will try and bring them in. LNOK: Living Arrangements: Lives with in one-story home. No steps to enter. Independent Transportation: Pt states drives self and states no transportation concerns at this time. DME: Denies using any DME and denies needs. HHC/SNF: No history of either and denies needs. No needs identified. Pt wishes to return home and states has no concerns with going home at time of discharge. CM to follow for any discharge planning/needs. Pt voices no further concerns/needs at this time. Advised pt to ask for CM if any further questions/concerns/needs arise. Voices understanding. PLAN: Home with family support and discharge plans in place. Bernard OLIVERA RN, CM
--- NOTE | 2019-02-02 12:14 | PCM.PN.BLA ---
Progress Note CXR from this morning demonstrated no residual pneumothorax. Left pigtail chest tube was removed. Vaseline gauze followed by two 4x4 dressings and an op-site were placed. Patient tolerated the procedure well. No bleeding or drainage noted. Will obtain repeat CXR in 4 hours. Order placed. If CXR still reads no residual pneumothorax, patient may be discharged to home. Bilateral breath sounds were auscultated and clear. Code Visit Inpatient E&M: 79628 Subs Hosp L1 - No charge
--- NOTE | 2019-02-02 12:18 | PN_ITS ---
Progress Note CXR from this morning demonstrated no residual pneumothorax. Left pigtail chest tube was removed. Vaseline gauze followed by two 4x4 dressings and an op-site were placed. Patient tolerated the procedure well. No bleeding or drainage noted. Will obtain repeat CXR in 4 hours. Order placed. If CXR still reads no residual pneumothorax, patient may be discharged to home. Bilateral breath sounds were auscultated and clear. Code Visit Inpatient E&M: 99366 Subs Hosp L1 - No charge
[2019-02-02 13:45] VITALS: BP 129/71; PULSE 63; RESP 18; TEMP 36.7; O2SAT 96
--- NOTE | 2019-02-02 13:54 | CASEMGMT ---
SW spoke w/pt in room, daughter present. SW offered support to pt and daughter. At present, pt reports to be doing okay, is hopeful will be able to return home today. SW remains available should any social service needs arise. ETHAN Jamison
--- NOTE | 2019-02-02 15:45 | RAD_ITS ---
STUDY: X-RAY CHEST REASON FOR EXAM: Male, 73 years old. Lung cancer. Pneumothorax TECHNIQUE: Single AP portable view of the chest. COMPARISON: Earlier the same day FINDINGS: Left chest tube has been discontinued. There is stable 2.2 cm left upper lobe mass with adjacent consolidation. There is no pneumothorax seen. There is subcutaneous emphysema on the left . Normal size heart. Normal mediastinum and gumaro. Normal visualized pulmonary arteries. There is atherosclerotic calcification of the aortic arch with tortuosity. There are diffuse degenerative changes of the visualized thoracic spine. Normal visualized ribs, clavicles, and shoulders. There is no demonstrated abnormality of the visualized soft tissue structures of the upper abdomen. RAD/Chest 1 View (Portable) IMPRESSION: Chest tube removal. No pneumothorax. Stable left upper lobe mass and consolidation. Electronically Signed: Gera Ann MD at 16:19 EDT , Service support ,
--- NOTE | 2019-02-02 16:06 | PCM.PN.BLA ---
Progress Note 1600 CXR: no PTX May be discharged and plan outpt CXR on Thursday Please copy Dr Zaldivar as I will be out that afternoon Brenda
--- NOTE | 2019-02-02 17:55 | DCINST_ITS ---
- Discharge Diagnoses Current Active Problems: Current Active and Chronic Problems (Last Reviewed 02/01/19 @ 16:44 by Doreen Bradshaw DO) Pneumothorax, left (Acute) Non-small cell carcinoma of lung (Chronic) HTN (hypertension) (Chronic) HLD (hyperlipidemia) (Chronic) Hypothyroidism (Chronic) Primary lung cancer (Chronic) You will use the following diet at home:: No restrictions Your food should be the consistency of: Regular Your liquids should be the consistency of: Regular/Thin Discharge Activity: Return to Normal Activity Lifting Restrictions: no more than 10 lbs for the next week Call your doctor if you observe: Fever of 101 or Higher, Shortness of breath, Dizziness, Fainting spells, Chest pain, Uncontrolled pain Instructions: Pneumothorax (Collapsed Lung) Allergies/Adverse Reactions: Allergies No Known Allergies Allergy (Verified 02/01/19 09:27) Medications to take at Discharge Amlodipine [Norvasc] 5 mg PO DAILY 10/24/16 Ascorbic Acid [Vitamin C] 1,000 mg PO DAILY 10/24/16 Aspirin [Aspirin EC] 81 mg PO DAILY 10/24/16 Cholecalciferol (Vitamin D3) [Vitamin D3] 2,000 unit PO DAILY 10/24/16 Cholesterol Gold 1 tablet PO DAILY 10/24/16 Doxazosin Mesylate [Cardura] 2 mg PO DAILY 10/24/16 Levothyroxine [Synthroid] 75 mcg PO DAILY 10/24/16 Multivitamin [Multiple Vitamins] 1 each PO DAILY 10/24/16 Omeprazole [Prilosec] 10 mg PO DAILY 10/24/16 Atorvastatin Calcium [Lipitor] 20 mg PO QHS 01/25/19 Ibuprofen [Motrin] 600 mg PO Q8H PRN PRN #30 tab 02/02/19 The following prescriptions were given: Ibuprofen [Motrin] 600 mg PO Q8H PRN PRN #30 tab PRN Reason: Pain Orders to be completed after discharge: Chest 1 View [RAD] Time Frame: 02/04/19, Location: None Selected Primary Care Physician: Isrrael Zaldivar MD [Primary Care Provider] - Please follow up with your Primary Care Physician in: 3-5 days Test Results: Test results from this visit will be discussed in further detail at your follow- up appointment, if applicable. Proposed Discharge Date: 02/02/19
--- NOTE | 2019-02-02 17:55 | PCM.DC.SUM ---
Discharge Date and Diagnosis Date of Admission: 02/01/19 Date of Discharge: 02/02/19 - Primary Discharge Diagnosis Active and Suspected Problems (Last Reviewed 02/01/19 @ 16:44 by Doreen Bradshaw DO) Pneumothorax, left (Acute) secondary to left lung biopsy Left chest tube - Secondary Discharge Diagnosis Chronic Problems (Last Reviewed 02/01/19 @ 16:44 by Doreen Bradshaw DO) Non-small cell carcinoma of lung (Chronic) HTN (hypertension) (Chronic) HLD (hyperlipidemia) (Chronic) Hypothyroidism (Chronic) Hospital Course and Treatment Imaging Results: 02/02/19 15:45 CXR [Chest 1 View (Portable)] [RAD] Urgent Clinical Impression(s) from Imaging Studies Biopsy CT 02/01/19 08:54 IMPRESSION: Successful, CT-guided core biopsy complicated by biopsy site hematoma and prominent pneumothorax which required chest tube placement.. Blood loss: None. Conscious sedation medications: 2 mg Versed IV. 150 mcg fentanyl IV Electronically Signed: Yasir Baron MD at 12:39 EDT , Service support , Chest CT 02/01/19 11:30 IMPRESSION: Successful anterior left upper lobe chest tube placement for pneumothorax. Electronically Signed: Yasir Baron MD at 17:15 EDT , Service support , Chest X-Ray 02/01/19 11:37 IMPRESSION: No residual pneumothorax is seen. 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 Electronically Signed: Guzman Velazco MD at 12:09 EDT Tel , Service support , Chest X-Ray 02/01/19 13:50 IMPRESSION: Well-positioned pigtail left chest tube. No residual pneumothorax. No pleural effusion. Calcified vascular plaque involving the thoracic aortic arch. Right superior mediastinal and aorticopulmonary window fullness as discussed above. Small amount of left chest wall subcutaneous emphysema. Electronically Signed: Yasir Baron MD at 16:13 EDT , Service support , Chest X-Ray 02/02/19 06:19 IMPRESSION: Stable left apical chest tube. No residual or recurrent pneumothorax. No pleural effusion. Mild central vascular congestion. Electronically Signed: Yasir Baron MD at 7:31 EDT , Service support , Chest X-Ray 02/02/19 15:45 IMPRESSION: Chest tube removal. No pneumothorax. Stable left upper lobe mass and consolidation. Electronically Signed: Gera Ann MD at 16:19 EDT , Service support , Laboratory Tests 02/02/19 02/02/19 02/01/19 Range/Units 06:25 06:25 09:11 WBC 12.5 H (4.4-11.0) K/mm3 Corrected WBC RBC 4.18 L (4.6-6.2) M/mm3 Hgb 11.6 L (13.0-16.5) g/dl Hct 35.6 L (40-54) % MCV 85.2 (80-94) fL MCH 27.8 (27.0-32.0) pg MCHC 32.6 (32-36) g/gl RDW 12.7 (11.6-14.6) % RDW Differential 39.4 (35.1-43.9) fl Plt Count 243 (150-450) K/mm3 MPV 8.2 (6.2-12.0) fl Immature Gran % (Auto) Neut % (Auto) Lymph % (Auto) [place] % (Auto) Eos % (Auto) Baso % (Auto) Immature Gran # (Auto) Absolute Neuts (auto) Absolute Lymphs (auto) Absolute Monos (auto) Total Counted Neutrophils % (Manual) Band Neutrophils % Lymphocytes % (Manual) Monocytes % (Manual) Eosinophils % (Manual) Basophils % (Manual) Metamyelocytes % Myelocytes % Promyelocytes % Blast Cells % Plasma Cell % (Manual) Other Cells % Lymphocytes # Nucleated RBCs/100 WBC Differential Comment Diff Path Review Hypersegmented Neuts Atypical Lymphocytes Reactive Lymphocytes Smudge Cells Eosinophilia # Basophilia # Toxic Granulation Dohle Bodies Kali Rods Platelet Estimate Plt Morphology Comment RBC Morphology Polychromasia Hypochromasia Poikilocytosis Basophilic Stippling Anisocytosis Microcytosis Macrocytosis Spherocytes Sickle Cells Target Cells Tear Drop Cells Ovalocytes Stomatocytes Oswald-Gleneagle Bodies Samantha Cells Bite Cells Acanthocytes (Spur) Rouleaux Schistocytes PT Cancelled (11.7-14.9) SECONDS INR Cancelled APTT Cancelled (24.1-36.2) Seconds Sodium 138 (136-145) mmol/L Potassium 4.1 (3.5-5.1) mmol/L Chloride 106 (98-107) mmol/L Carbon Dioxide 27.0 (21.0-32.0) mmol/L Anion Gap 5 (5-15) BUN 23 H (7-18) mg/dL Creatinine 0.88 (0.70-1.30) mg/dL Estim Creat Clear Calc 67.47 ml/min Est GFR (MDRD) Af Amer 109 (>60) mL/min Est GFR (MDRD) Non-Af 90 (>60) mL/min BUN/Creatinine Ratio 26.2 H (10-20) RATIO Glucose 109 H (74-106) mg/dL Calcium 8.4 L (8.5-10.1) mg/dL 02/01/19 02/01/19 02/01/19 Range/Units 09:11 09:08 09:08 WBC Cancelled 12.0 H (4.4-11.0) K/mm3 Corrected WBC Cancelled RBC Cancelled 4.48 L (4.6-6.2) M/mm3 Hgb Cancelled 12.6 L (13.0-16.5) g/dl Hct Cancelled 38.1 L (40-54) % MCV Cancelled 85.0 (80-94) fL MCH Cancelled 28.1 (27.0-32.0) pg MCHC Cancelled 33.1 (32-36) g/gl RDW Cancelled 12.6 (11.6-14.6) % RDW Differential Cancelled 38.8 (35.1-43.9) fl Plt Count Cancelled 281 (150-450) K/mm3 MPV Cancelled 8.3 (6.2-12.0) fl Immature Gran % (Auto) Cancelled Neut % (Auto) Cancelled Lymph % (Auto) Cancelled [place] % (Auto) Cancelled Eos % (Auto) Cancelled Baso % (Auto) Cancelled Immature Gran # (Auto) Cancelled Absolute Neuts (auto) Cancelled Absolute Lymphs (auto) Cancelled Absolute Monos (auto) Cancelled Total Counted Cancelled Neutrophils % (Manual) Cancelled Band Neutrophils % Cancelled Lymphocytes % (Manual) Cancelled Monocytes % (Manual) Cancelled Eosinophils % (Manual) Cancelled Basophils % (Manual) Cancelled Metamyelocytes % Cancelled Myelocytes % Cancelled Promyelocytes % Cancelled Blast Cells % Cancelled Plasma Cell % (Manual) Cancelled Other Cells % Cancelled Lymphocytes # Cancelled Nucleated RBCs/100 WBC Cancelled Differential Comment Cancelled Diff Path Review Cancelled Hypersegmented Neuts Cancelled Atypical Lymphocytes Cancelled Reactive Lymphocytes Cancelled Smudge Cells Cancelled Eosinophilia # Cancelled Basophilia # Cancelled Toxic Granulation Cancelled Dohle Bodies Cancelled Kali Rods Cancelled Platelet Estimate Cancelled Plt Morphology Comment Cancelled RBC Morphology Cancelled Polychromasia Cancelled Hypochromasia Cancelled Poikilocytosis Cancelled Basophilic Stippling Cancelled Anisocytosis Cancelled Microcytosis Cancelled Macrocytosis Cancelled Spherocytes Cancelled Sickle Cells Cancelled Target Cells Cancelled Tear Drop Cells Cancelled Ovalocytes Cancelled Stomatocytes Cancelled Oswald-Gleneagle Bodies Cancelled Samantha Cells Cancelled Bite Cells Cancelled Acanthocytes (Spur) Cancelled Rouleaux Cancelled Schistocytes Cancelled PT 14.8 (11.7-14.9) SECONDS INR 1.2 APTT 34.3 (24.1-36.2) Seconds Sodium (136-145) mmol/L Potassium (3.5-5.1) mmol/L Chloride (98-107) mmol/L Carbon Dioxide (21.0-32.0) mmol/L Anion Gap (5-15) BUN (7-18) mg/dL Creatinine (0.70-1.30) mg/dL Estim Creat Clear Calc ml/min Est GFR (MDRD) Af Amer (>60) mL/min Est GFR (MDRD) Non-Af (>60) mL/min BUN/Creatinine Ratio (10-20) RATIO Glucose (74-106) mg/dL Calcium (8.5-10.1) mg/dL Dr. Bala Pat[facility] [facility] Operations: None Procedures: - - Chest tube placed by Dr. Baron on 02/01/19 after a left lung biopsy resulted in a pneumothorax Summary of Care Provided: The patient is a 73 year old M with a past medical history of recently diagnosed non-small cell lung cancer (with metastasis to mediastinal lymph nodes, cervical lymph nodes and lung metastasis) HTN, HLD and hypothyroidism who was having a lung biopsy in radiology on 02/01/2019 and sustained a Left pneumothorax. A chest tube was put in by the radiologist, Dr. Baron, and he was admitted to the hospitalist service. Dr. Bala Pat was consulted to assist with management of the chest tube. On 02/02/2019 a chest x-ray was obtained that showed no pneumothorax. The chest tube was discontinued by Chiqui Ann NP from general surgery. Follow-up chest x-ray revealed no evidence of pneumothorax and he was discharged home. He was given a prescription for Motrin 600 mg and instructed to take 1 every 8 hours as needed for pain. He was given a requisition by Dr. Pat to obtain a chest x-ray on 02/04/2019 with the results to go to Dr. Isrrael Zaldivar. He will follow-up with Dr. Zaldivar in 3 to 5 days. PHYSICAL EXAM: GENERAL: alert, oriented X 3, Cooperative, NAD ORAL: moist mucosa, no mucosal lesions NECK: No JVD, supple, trachea midline, enlarged cervical nodes in the right neck LUNGS: CTA, symmetric chest expansion, no conversational dyspnea, not tachypneic HEART: RRR, Normal S1 and S2, no rub, no gallop ABDOMEN: soft, NT, ND, BS present, no guarding with palpation EXTREMITIES: no edema, no cyanosis, no calf tenderness SKIN: No rashes, no breakdown NEUROLOGIC: no focal neurologic deficits PSYCH: appropriate, normal affect, pleasant This note was generated with eSeekersation software. It may contain incorrect words, spelling, and punctuation that were not noted in checking the note before signing. - Physical Exam Vital Signs Temp Pulse Resp BP Pulse Ox 98.1 F 63 18 129/71 H 96 02/02/19 13:45 02/02/19 13:45 02/02/19 13:45 02/02/19 13:45 02/02/19 13:45 Oxygen Flow Rate (L/min) [15] 2 Oxygen Flow Rate (L/min) [14] 2 Oxygen Flow Rate (L/min) [13] 2 Oxygen Flow Rate (L/min) [12] 2 Oxygen Flow Rate (L/min) [11] 2 Oxygen Flow Rate (L/min) [10] 2 Oxygen Flow Rate (L/min) [9] 2 Oxygen Flow Rate (L/min) [8] 2 Oxygen Flow Rate (L/min) [6] 2 Oxygen Flow Rate (L/min) [5] 2 Oxygen Flow Rate (L/min) [4] 2 Oxygen Flow Rate (L/min) [3] 2 Oxygen Flow Rate (L/min) [2] 2 Oxygen Flow Rate (L/min) 2 Oxygen Delivery Method [15] Nasal Cannula Oxygen Delivery Method [14] Nasal Cannula Oxygen Delivery Method [13] Nasal Cannula Oxygen Delivery Method [12] Nasal Cannula Oxygen Delivery Method [11] Nasal Cannula Oxygen Delivery Method [10] Nasal Cannula Oxygen Delivery Method [9] Nasal Cannula Oxygen Delivery Method [8] Nasal Cannula Oxygen Delivery Method [7] Nasal Cannula Oxygen Delivery Method [6] Nasal Cannula Oxygen Delivery Method [5] Nasal Cannula Oxygen Delivery Method [4] Nasal Cannula Oxygen Delivery Method [3] Nasal Cannula Oxygen Delivery Method [2] Nasal Cannula Oxygen Delivery Method [1 ( Room Air Initial Baseline)] Oxygen Delivery Method Room Air Weight: 169 lb 15.622 oz Body Mass Index (BMI) 27.4 Intake and Output for Last 24 Hours 01/31/19 02/01/19 02/02/19 23:59 23:59 23:59 Intake Total 2290 / 2290 Output Total 775 / 775 Balance 1515 / 1515 Laboratory Tests Past 24 Hrs 02/02/19 02/02/19 06:25 06:25 WBC 12.5 H RBC 4.18 L Hgb 11.6 L Hct 35.6 L MCV 85.2 MCH 27.8 MCHC 32.6 RDW 12.7 RDW Differential 39.4 Plt Count 243 MPV 8.2 Sodium 138 Potassium 4.1 Chloride 106 Carbon Dioxide 27.0 Anion Gap 5 BUN 23 H Creatinine 0.88 Estim Creat Clear Calc 67.47 Est GFR (MDRD) Af Amer 109 Est GFR (MDRD) Non-Af 90 BUN/Creatinine Ratio 26.2 H Glucose 109 H Calcium 8.4 L Discharge Activity: Return to Normal Activity Call your doctor if you observe: Fever of 101 or Higher, Shortness of breath, Dizziness, Fainting spells, Chest pain, Uncontrolled pain Home Medications: Medications to take at Discharge Amlodipine [Norvasc] 5 mg PO QHS 10/24/16 Ascorbic Acid [Vitamin C] 1,000 mg PO DAILY 10/24/16 Aspirin [Aspirin EC] 81 mg PO DAILY 10/24/16 Cholecalciferol (Vitamin D3) [Vitamin D3] 2,000 unit PO DAILY 10/24/16 Doxazosin Mesylate [Cardura] 2 mg PO QHS 10/24/16 Levothyroxine [Synthroid] 75 mcg PO QHS 10/24/16 Multivitamin [Multiple Vitamins] 1 each PO DAILY 10/24/16 Omeprazole [Prilosec] 10 mg PO DAILY 10/24/16 Atorvastatin Calcium [Lipitor] 20 mg PO QHS 01/25/19 Ibuprofen [Motrin] 600 mg PO Q8H PRN PRN #30 tab 02/02/19 Acetaminophen [Tylenol Tablet] 650 mg PO Q4H PRN PRN tablet 02/04/19 Following Prescrptions Were Given to Patient: Ibuprofen [Motrin] 600 mg PO Q8H PRN PRN #30 tab PRN Reason: Pain Other Amb Orders: Chest 1 View [RAD] Time Frame: 02/04/19, Location: None Selected Primary Care Physician: Isrrael Zaldivar MD [Primary Care Provider] - Please follow up with your Primary Care Physician in: 3-5 days Patient Instructions: Pneumothorax (Collapsed Lung) Disposition: Home Minutes spent on discharge:: 30 Medical Necessity - Tobacco Use Smoking Status: Never smoker Tobacco Use: Non-smoker Meaningful Use Info Meaningful Use Diagnoses (Choose all that apply): None applicable Code Visit Inpatient E&M: 18149 Disch Hosp
--- NOTE | 2019-02-02 17:58 | DS.PCM_ITS ---
Discharge Date and Diagnosis Date of Admission: 02/01/19 Date of Discharge: 02/02/19 - Primary Discharge Diagnosis Active and Suspected Problems (Last Reviewed 02/01/19 @ 16:44 by Doreen Bradshaw DO) Pneumothorax, left (Acute) secondary to left lung biopsy Left chest tube - Secondary Discharge Diagnosis Chronic Problems (Last Reviewed 02/01/19 @ 16:44 by Doreen Bradshaw DO) Non-small cell carcinoma of lung (Chronic) HTN (hypertension) (Chronic) HLD (hyperlipidemia) (Chronic) Hypothyroidism (Chronic) Hospital Course and Treatment Imaging Results: 02/02/19 15:45 CXR [Chest 1 View (Portable)] [RAD] Urgent Clinical Impression(s) from Imaging Studies Biopsy CT 02/01/19 08:54 IMPRESSION: Successful, CT-guided core biopsy complicated by biopsy site hematoma and prominent pneumothorax which required chest tube placement.. Blood loss: None. Conscious sedation medications: 2 mg Versed IV. 150 mcg fentanyl IV Electronically Signed: Yasir Baron MD at 12:39 EDT , Service support , Chest CT 02/01/19 11:30 IMPRESSION: Successful anterior left upper lobe chest tube placement for pneumothorax. Electronically Signed: Yasir Baron MD at 17:15 EDT , Service support , Chest X-Ray 02/01/19 11:37 IMPRESSION: No residual pneumothorax is seen. 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 Electronically Signed: Guzman Velazco MD at 12:09 EDT Tel , Service support , Chest X-Ray 02/01/19 13:50 IMPRESSION: Well-positioned pigtail left chest tube. No residual pneumothorax. No pleural effusion. Calcified vascular plaque involving the thoracic aortic arch. Right superior mediastinal and aorticopulmonary window fullness as discussed above. Small amount of left chest wall subcutaneous emphysema. Electronically Signed: Yasir Baron MD at 16:13 EDT , Service support , Chest X-Ray 02/02/19 06:19 IMPRESSION: Stable left apical chest tube. No residual or recurrent pneumothorax. No pleural effusion. Mild central vascular congestion. Electronically Signed: Yasir Baron MD at 7:31 EDT , Service support , Chest X-Ray 02/02/19 15:45 IMPRESSION: Chest tube removal. No pneumothorax. Stable left upper lobe mass and consolidation. Electronically Signed: Gera Ann MD at 16:19 EDT , Service support , Laboratory Tests 02/02/19 02/02/19 02/01/19 Range/Units 06:25 06:25 09:11 WBC 12.5 H (4.4-11.0) K/mm3 Corrected WBC RBC 4.18 L (4.6-6.2) M/mm3 Hgb 11.6 L (13.0-16.5) g/dl Hct 35.6 L (40-54) % MCV 85.2 (80-94) fL MCH 27.8 (27.0-32.0) pg MCHC 32.6 (32-36) g/gl RDW 12.7 (11.6-14.6) % RDW Differential 39.4 (35.1-43.9) fl Plt Count 243 (150-450) K/mm3 MPV 8.2 (6.2-12.0) fl Immature Gran % (Auto) Neut % (Auto) Lymph % (Auto) [place] % (Auto) Eos % (Auto) Baso % (Auto) Immature Gran # (Auto) Absolute Neuts (auto) Absolute Lymphs (auto) Absolute Monos (auto) Total Counted Neutrophils % (Manual) Band Neutrophils % Lymphocytes % (Manual) Monocytes % (Manual) Eosinophils % (Manual) Basophils % (Manual) Metamyelocytes % Myelocytes % Promyelocytes % Blast Cells % Plasma Cell % (Manual) Other Cells % Lymphocytes # Nucleated RBCs/100 WBC Differential Comment Diff Path Review Hypersegmented Neuts Atypical Lymphocytes Reactive Lymphocytes Smudge Cells Eosinophilia # Basophilia # Toxic Granulation Dohle Bodies Kali Rods Platelet Estimate Plt Morphology Comment RBC Morphology Polychromasia Hypochromasia Poikilocytosis Basophilic Stippling Anisocytosis Microcytosis Macrocytosis Spherocytes Sickle Cells Target Cells Tear Drop Cells Ovalocytes Stomatocytes Oswald-Hampton Bodies Samantha Cells Bite Cells Acanthocytes (Spur) Rouleaux Schistocytes PT Cancelled (11.7-14.9) SECONDS INR Cancelled APTT Cancelled (24.1-36.2) Seconds Sodium 138 (136-145) mmol/L Potassium 4.1 (3.5-5.1) mmol/L Chloride 106 (98-107) mmol/L Carbon Dioxide 27.0 (21.0-32.0) mmol/L Anion Gap 5 (5-15) BUN 23 H (7-18) mg/dL Creatinine 0.88 (0.70-1.30) mg/dL Estim Creat Clear Calc 67.47 ml/min Est GFR (MDRD) Af Amer 109 (>60) mL/min Est GFR (MDRD) Non-Af 90 (>60) mL/min BUN/Creatinine Ratio 26.2 H (10-20) RATIO Glucose 109 H (74-106) mg/dL Calcium 8.4 L (8.5-10.1) mg/dL 02/01/19 02/01/19 02/01/19 Range/Units 09:11 09:08 09:08 WBC Cancelled 12.0 H (4.4-11.0) K/mm3 Corrected WBC Cancelled RBC Cancelled 4.48 L (4.6-6.2) M/mm3 Hgb Cancelled 12.6 L (13.0-16.5) g/dl Hct Cancelled 38.1 L (40-54) % MCV Cancelled 85.0 (80-94) fL MCH Cancelled 28.1 (27.0-32.0) pg MCHC Cancelled 33.1 (32-36) g/gl RDW Cancelled 12.6 (11.6-14.6) % RDW Differential Cancelled 38.8 (35.1-43.9) fl Plt Count Cancelled 281 (150-450) K/mm3 MPV Cancelled 8.3 (6.2-12.0) fl Immature Gran % (Auto) Cancelled Neut % (Auto) Cancelled Lymph % (Auto) Cancelled [place] % (Auto) Cancelled Eos % (Auto) Cancelled Baso % (Auto) Cancelled Immature Gran # (Auto) Cancelled Absolute Neuts (auto) Cancelled Absolute Lymphs (auto) Cancelled Absolute Monos (auto) Cancelled Total Counted Cancelled Neutrophils % (Manual) Cancelled Band Neutrophils % Cancelled Lymphocytes % (Manual) Cancelled Monocytes % (Manual) Cancelled Eosinophils % (Manual) Cancelled Basophils % (Manual) Cancelled Metamyelocytes % Cancelled Myelocytes % Cancelled Promyelocytes % Cancelled Blast Cells % Cancelled Plasma Cell % (Manual) Cancelled Other Cells % Cancelled Lymphocytes # Cancelled Nucleated RBCs/100 WBC Cancelled Differential Comment Cancelled Diff Path Review Cancelled Hypersegmented Neuts Cancelled Atypical Lymphocytes Cancelled Reactive Lymphocytes Cancelled Smudge Cells Cancelled Eosinophilia # Cancelled Basophilia # Cancelled Toxic Granulation Cancelled Dohle Bodies Cancelled Kali Rods Cancelled Platelet Estimate Cancelled Plt Morphology Comment Cancelled RBC Morphology Cancelled Polychromasia Cancelled Hypochromasia Cancelled Poikilocytosis Cancelled Basophilic Stippling Cancelled Anisocytosis Cancelled Microcytosis Cancelled Macrocytosis Cancelled Spherocytes Cancelled Sickle Cells Cancelled Target Cells Cancelled Tear Drop Cells Cancelled Ovalocytes Cancelled Stomatocytes Cancelled Oswald-Hampton Bodies Cancelled Samantha Cells Cancelled Bite Cells Cancelled Acanthocytes (Spur) Cancelled Rouleaux Cancelled Schistocytes Cancelled PT 14.8 (11.7-14.9) SECONDS INR 1.2 APTT 34.3 (24.1-36.2) Seconds Sodium (136-145) mmol/L Potassium (3.5-5.1) mmol/L Chloride (98-107) mmol/L Carbon Dioxide (21.0-32.0) mmol/L Anion Gap (5-15) BUN (7-18) mg/dL Creatinine (0.70-1.30) mg/dL Estim Creat Clear Calc ml/min Est GFR (MDRD) Af Amer (>60) mL/min Est GFR (MDRD) Non-Af (>60) mL/min BUN/Creatinine Ratio (10-20) RATIO Glucose (74-106) mg/dL Calcium (8.5-10.1) mg/dL Dr. Bala Pat-Riparius general surgery Operations: None Procedures: - - Chest tube placed by Dr. Baron on 02/01/19 after a left lung biopsy resulted in a pneumothorax Summary of Care Provided: The patient is a 73 year old M with a past medical history of recently diagnosed non-small cell lung cancer (with metastasis to mediastinal lymph nodes, cervical lymph nodes and lung metastasis) HTN, HLD and hypothyroidism who was having a lung biopsy in radiology on 02/01/2019 and sustained a Left p neumothorax. A chest tube was put in by the radiologist, Dr. Baron, and he was admitted to the hospitalist service. Dr. Bala Pat was consulted to assist with management of the chest tube. On 02/02/2019 a chest x-ray was obtained that showed no pneumothorax. The chest tube was discontinued by Chiqui Ann NP from general surgery. Follow-up chest x-ray revealed no evidence of pneumothorax and he was discharged home. He was given a prescription for Motrin 600 mg and instructed to take 1 every 8 hours as needed for pain. He was given a requisition by Dr. Pat to obtain a chest x-ray on 02/04/2019 with the results to go to Dr. Isrrael Zaldivar. He will follow-up with Dr. Zaldivar in 3 to 5 days. PHYSICAL EXAM: GENERAL: alert, oriented X 3, Cooperative, NAD ORAL: moist mucosa, no mucosal lesions NECK: No JVD, supple, trachea midline, enlarged cervical nodes in the right neck LUNGS: CTA, symmetric chest expansion, no conversational dyspnea, not tachypneic HEART: RRR, Normal S1 and S2, no rub, no gallop ABDOMEN: soft, NT, ND, BS present, no guarding with palpation EXTREMITIES: no edema, no cyanosis, no calf tenderness SKIN: No rashes, no breakdown NEUROLOGIC: no focal neurologic deficits PSYCH: appropriate, normal affect, pleasant This note was generated with [employer] software. It may contain incorrect words, spelling, and punctuation that were not noted in checking the note before signing. - Physical Exam Vital Signs Temp Pulse Resp BP Pulse Ox 98.1 F 63 18 129/71 H 96 02/02/19 13:45 02/02/19 13:45 02/02/19 13:45 02/02/19 13:45 02/02/19 13:45 Oxygen Flow Rate (L/min) [15] 2 Oxygen Flow Rate (L/min) [14] 2 Oxygen Flow Rate (L/min) [13] 2 Oxygen Flow Rate (L/min) [12] 2 Oxygen Flow Rate (L/min) [11] 2 Oxygen Flow Rate (L/min) [10] 2 Oxygen Flow Rate (L/min) [9] 2 Oxygen Flow Rate (L/min) [8] 2 Oxygen Flow Rate (L/min) [6] 2 Oxygen Flow Rate (L/min) [5] 2 Oxygen Flow Rate (L/min) [4] 2 Oxygen Flow Rate (L/min) [3] 2 Oxygen Flow Rate (L/min) [2] 2 Oxygen Flow Rate (L/min) 2 Oxygen Delivery Method [15] Nasal Cannula Oxygen Delivery Method [14] Nasal Cannula Oxygen Delivery Method [13] Nasal Cannula Oxygen Delivery Method [12] Nasal Cannula Oxygen Delivery Method [11] Nasal Cannula Oxygen Delivery Method [10] Nasal Cannula Oxygen Delivery Method [9] Nasal Cannula Oxygen Delivery Method [8] Nasal Cannula Oxygen Delivery Method [7] Nasal Cannula Oxygen Delivery Method [6] Nasal Cannula Oxygen Delivery Method [5] Nasal Cannula Oxygen Delivery Method [4] Nasal Cannula Oxygen Delivery Method [3] Nasal Cannula Oxygen Delivery Method [2] Nasal Cannula Oxygen Delivery Method [1 ( Room Air Initial Baseline)] Oxygen Delivery Method Room Air Weight: 169 lb 15.622 oz Body Mass Index (BMI) 27.4 Intake and Output for Last 24 Hours 01/31/19 02/01/19 02/02/19 23:59 23:59 23:59 Intake Total 2290 / 2290 Output Total 775 / 775 Balance 1515 / 1515 Laboratory Tests Past 24 Hrs 02/02/19 02/02/19 06:25 06:25 WBC 12.5 H RBC 4.18 L Hgb 11.6 L Hct 35.6 L MCV 85.2 MCH 27.8 MCHC 32.6 RDW 12.7 RDW Differential 39.4 Plt Count 243 MPV 8.2 Sodium 138 Potassium 4.1 Chloride 106 Carbon Dioxide 27.0 Anion Gap 5 BUN 23 H Creatinine 0.88 Estim Creat Clear Calc 67.47 Est GFR (MDRD) Af Amer 109 Est GFR (MDRD) Non-Af 90 BUN/Creatinine Ratio 26.2 H Glucose 109 H Calcium 8.4 L Discharge Activity: Return to Normal Activity Call your doctor if you observe: Fever of 101 or Higher, Shortness of breath, Dizziness, Fainting spells, Chest pain, Uncontrolled pain Home Medications: Medications to take at Discharge Amlodipine [Norvasc] 5 mg PO QHS 10/24/16 Ascorbic Acid [Vitamin C] 1,000 mg PO DAILY 10/24/16 Aspirin [Aspirin EC] 81 mg PO DAILY 10/24/16 Cholecalciferol (Vitamin D3) [Vitamin D3] 2,000 unit PO DAILY 10/24/16 Doxazosin Mesylate [Cardura] 2 mg PO QHS 10/24/16 Levothyroxine [Synthroid] 75 mcg PO QHS 10/24/16 Multivitamin [Multiple Vitamins] 1 each PO DAILY 10/24/16 Omeprazole [Prilosec] 10 mg PO DAILY 10/24/16 Atorvastatin Calcium [Lipitor] 20 mg PO QHS 01/25/19 Ibuprofen [Motrin] 600 mg PO Q8H PRN PRN #30 tab 02/02/19 Acetaminophen [Tylenol Tablet] 650 mg PO Q4H PRN PRN tablet 02/04/19 Following Prescrptions Were Given to Patient: Ibuprofen [Motrin] 600 mg PO Q8H PRN PRN #30 tab PRN Reason: Pain Other Amb Orders: Chest 1 View [RAD] Time Frame: 02/04/19, Location: None Selected Primary Care Physician: Isrrael Zaldivar MD [Primary Care Provider] - Please follow up with your Primary Care Physician in: 3-5 days Patient Instructions: Pneumothorax (Collapsed Lung) Disposition: Home Minutes spent on discharge:: 30 Medical Necessity - Tobacco Use Smoking Status: Never smoker Tobacco Use: Non-smoker Meaningful Use Info Meaningful Use Diagnoses (Choose all that apply): None applicable Code Visit Inpatient E&M: 42977 Disch Hosp
[2019-02-02] MEDS: amLODIPine 5 MG Tablet PO (18:08)
== END 2019-02-02 18:14 | disposition home or self-care (01) | DRG 200 ==
LOC: MS2 12:55
PROVIDERS: Nurse Practitioner Family; Admitting Provider Internal Medicine; Family Provider Family Medicine; PCP Family Medicine; Referring Provider Internal Medicine Hematology & Oncology; Visit Provider Internal Medicine Hematology & Oncology
DX: J95.811 Postprocedural pneumothorax (principal); C77.0 Secondary and unspecified malignant neoplasm of lymph nodes of head, face and neck; C77.1 Secondary and unspecified malignant neoplasm of intrathoracic lymph nodes; C78.00 Secondary malignant neoplasm of unspecified lung; C34.90 Malignant neoplasm of unspecified part of unspecified bronchus or lung; Y84.8 Other medical procedures as the cause of abnormal reaction of the patient, or of later complication, without mention of misadventure at the time of the procedure; E03.9 Hypothyroidism, unspecified; I10 Essential (primary) hypertension; E78.5 Hyperlipidemia, unspecified
CPT/HCPCS: 36415; 71045; 71046; 71250; 77012; 78815; 80048; 80053; 84100; 84439; 84443; 85025; 85027; 85610; 85730; 88108; 88305; 88309; 88313; 99156; 99157; A9552; J7030; J7040; J7050; A4216; J9271

== ENCOUNTER 2019-02-04 10:06 | Day surgery (SDC) | payer MEDICARE, SELFPAY ==
[2019-02-01 13:24] VITALS: BMI 27.4
[2019-02-04] VITALS (9 sets, daily range): BP systolic 112–141; BP diastolic 52–69; PULSE 61–73; RESP 16–18; TEMP 36.2–37.2; O2SAT 92–100; BMI 27.9
--- NOTE | 2019-02-04 | IMM_PTH ---
PATIENT: RAJAN ROSEN LOC: [facility] – [place] U#:[id number] AGE/SX: 73/M ROOM: RE02/04/[address]: Dr. Felton Sanders MD : 1945 BED: DIS: 02/04/2019 SPEC #: [id number] RECD: 02/07/19 13:56 STATUS: COURTNEY RERip #: [id number] IVAN: 02/04/19 00:[address]: Felton Sanders DEPT: IMMUNOHISTOCHEMISTRY RECD BY: Jessica Patiño ENTERED: 02/07/19 13:58 SP TYPE: IMMUNO OTHR DR: MD Dr. Bala Jaramillo MD Tissues: A - Axillary lymph node, NOS Procedures: RCC (add) NAPSIN A (add) CK20 (add) CK5-6 (add) CK7 (add) CK8 (add) HEP PAR (add) TTF1 (add) Pankeratin (initial) P40 (add) PSAP (add) PHYSICIAN & [address] [address] SPECIMEN INFORMATION: Tissue Source: A - Open deep right cervical node Clinical Info: Right anterior cervical adenopathy Specimen Number: [id number] CPT code: 50757, 44986 x10 METHODOLOGY: Deparaffinized sections of prefer/formalin-fixed tissue or PAP/DQ stained slides are incubated with monoclonal/polyclonal antibodies/oligonucleotide probes. Localization is made via biotin free immunoperoxidase method. Appropriate controls are performed and reacted as expected. Results on target cell population are indicated in the following table: RESULTS: ANTIBODY / CLONE RESULT Block A AE1-3 (AE1/AE3/PCK26) positive CK7 (OV-TL12/30) positive CK8 (49wzcaK72) positive CK20 (KS20.8) negative TTF-1 (8G7G3/1) positive Napsin A (Rabbit Polyclonal) positive HepPar (OCh1E5) negative RCC (PN-15) negative PSAP (PASE/4LJ) negative CK5-6 (D5 & 1684) negative P40 (BC28) negative These tests were developed and their performance characteristics determined by [facility]. They may not have been cleared or approved by the U.[place]. Food and Drug Administration. The FDA has determined that such clearance or approval is not necessary. INTERPRETATION: A. Right anterior cervical lymph node, biopsy: Poorly differentiated non-small cell carcinoma, favor adenocarcinoma, consistent with lung primary. SJ:emily 02/08/19
--- NOTE | 2019-02-04 | LYMN_PTH ---
PATIENT: RAJAN ROSEN LOC: [facility] – [place] U#:[id number] AGE/SX: 73/M ROOM: RE02/04/[address]: Dr. Felton Sanders MD : 1945 BED: DIS: 02/04/2019 SPEC #: [id number] RECD: 02/04/19 13:31 STATUS: COURTNEY COLETTE #: [id number] IVAN: 02/04/19 00:[address]: Felton Sanedrs DEPT: SURGICAL PATHOLOGY RECD BY: Jessica Patiño ENTERED: 02/04/19 13:59 SP TYPE: LYMPH NODE OTHR DR: MD Dr. Bala Jaramillo MD Tissues: A - LYMPH NODE BIOPSY B - LYMPH NODE BIOPSY Procedures: Frozen Section (charge) Surgery Specimen Level IV HEADER OPERATION: Radical neck open deep, cervical node PRE-OP DIAGNOSIS: Right anterior cervical adenopathy TISSUE SUBMITTED: A - Open deep right cervical node sent for frozen at 1325, B - Open deep right cervical node sent in formalin FROZEN SECTION DIAGNOSIS A. Right anterior cervical lymph node, biopsy: Metastatic non-small cell carcinoma. AM:emily 02/04/19 Case has been reviewed in consultation with Dr. Lozano who concurs with the above diagnosis. IDC:LOVE MICROSCOPIC DIAGNOSIS A. Right anterior cervical lymph node, biopsy: Metastatic poorly differentiated non-small cell carcinoma, favor adenocarcinoma, consistent with lung primary. See comment. B. Deep cervical lymph node, biopsy: Metastatic poorly differentiated non-small cell carcinoma. See comment. LOVE:emily 02/07/19 COMMENT A. The largest focus of metastasis measures 0.7 cm in greatest dimension. Extensive extranodal extension is noted. Immunohistochemistry ([id number]) supports the above diagnosis. B. The largest focus of metastasis measures 0.5 cm in greatest dimension. Extensive extranodal extension is noted. Molecular studies on the tumor are performed and the results will be reported separately as an addendum. Please make reference to previous specimen ([id number]) right lower neck, FNA with diagnosis of malignant cells present derived from poorly differentiated non-small cell carcinoma. Correlation with clinical, radiologic findings and appropriate follow up are necessary. This case is discussed with Dr. Liu on 02/08/19. MICROSCOPIC DESCRIPTION Slides are reviewed. GROSS DESCRIPTION A - Received fresh for frozen section diagnosis labeled with the patient's name is a specimen designated right cervical node. The specimen consists of three pieces of laureano-pink soft tissue measuring in aggregate 1.5 x 0.5 x 0.5 cm. Four touch imprints are prepared (two stained with Diff-Quik, two stained with H & E). The entire specimen is submitted for frozen section diagnosis in one cassette. / SJ:emily 02/04/19 B Received in fixative is one container labeled with the patient's name and designated sent in formalin, open deep right cervical node. The specimen consists of multiple irregular fragments of laureano-pink soft tissue that in aggregate measure 2 x 1 x 0.3 cm. The entire specimen is submitted in one cassette. / SJ:emily 02/04/19 TC:0 CPT: 98255 x2, 93589 ADDENDUM ADDENDUM ADDENDUM ADDENDUM ADDENDUM ADDENDUM ADDENDUM ADDENDUM ADDENDUM ADDENDUM ADDENDUM ADDENDUM ADDENDUM ADDENDUM ADDENDUM 02/22/2019 08:48 ADDENDUM 02/22/2019 08:48 ADDENDUM 02/22/2019 08:48 ADDENDUM 02/22/2019 08:48 ADDENDUM 02/22/2019 08:48 REPORTS FROM GitHub PD-L1 IMMUNOHISTOCHEMICAL ANALYSIS RESULTS: Tumor proportion score: 100% / High Positive OnkoSight NGS EGFR and KRAS Sequencing RESULT SUMMARY: Normal FLUORESCENCE IN SITU HYBRIDIZATION (FISH) Interpretation: 1. No evidence of ALK gene rearrangement or deletion. 2. Negative for ROS1 gene rearrangement. Please see complete report in e-chart or EMR for complete details
--- NOTE | 2019-02-04 10:12 | RAD_ITS ---
STUDY: X-RAY CHEST REASON FOR EXAM: Male, 73 years old. Acute chest pain TECHNIQUE: Single AP portable view of the chest. COMPARISON: 02/02/2019 FINDINGS: Stable scarring left upper lobe likely from recent chest tube placement The lungs are clear and expanded. There is no demonstrated pleural abnormality. Normal size heart. Normal mediastinum and gumaro. Normal visualized pulmonary arteries. Normal visualized aortic arch and descending thoracic aorta. There are diffuse degenerative changes of the visualized thoracic spine. Normal visualized ribs, clavicles, and shoulders. There is no demonstrated abnormality of the visualized soft tissue structures of the upper abdomen. RAD/Chest 1 View IMPRESSION: No acute pulmonary process, no interval change Electronically Signed: Wellington Lemon MD at 10:36 EDT , Service support ,
--- NOTE | 2019-02-04 10:33 | EKG12_ITS ---
Test Reason : PRE OP Blood Pressure : / mmHG Vent. Rate : 065 BPM Atrial Rate : 065 BPM P-R Int : 168 ms QRS Dur : 084 ms QT Int : 412 ms P-R-T Axes : 052 -12 054 degrees QTc Int : 428 ms Normal sinus rhythm Normal ECG Confirmed by RENETTA REIS, CONNIE ([id number]), medical transcription editor MARILOU MORENO ([id number]) on 02/08/2019 11:42:30 AM Referred By: Felton Sanders Confirmed By:CONNIE JACKSON MD
--- NOTE | 2019-02-04 13:59 | OP.PCM_ITS ---
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 Further tissue specimen for evaluation for tumor markers for treatment planning was desired however biopsy of the lung mass was aborted due to collapse of the lung on that side and I was subsequently asked to obtain specimen from his cervical lymph node metastasis on the right side. The risks, alternatives, potential complications, and benefits were discussed at length and any questions answered to the patient and/or caregiver's satisfaction. Witnessed informed consent was obtained in the office, and the patient and/or caregiver was agreeable to proceed. Procedure went as follows: The patient was identified in the preoperative holding brought to the operating room was placed under general anesthesia intubated. When appropriate anesthesia obtained, the right neck was injected over the planned incision line with 1% lidocaine with 100,000 epinephrine for a total of 3 cc. This area was then prepped and draped in usual sterile fashion. Using a 15 blade scalpel, the skin and subcutaneous tissues were then incised. The platysma was then transected. There is noted to be an engorged superficial vein was dissected free and lateralized with a self-retaining retractor. Dissection was then carried out along the sternocleidomastoid where there was encountered a firm fixed 4.5 cm metastatic tumor. This was encased in extensive fibrosis which did not allow for this to be resected en bloc. Given this a wedge resection was then carried out avoiding the jugular vein which was compressed along the deep aspect of the tumor mass. Confirmation of the malignant tumor was obtained through frozen section with additional tissue harvested for permanent sectioning and special stains. Hemostatic agent was then applied and the wound closed deeply with interrupted 3-0 Vicryl sutures followed by running 5-0 Monocryl to the skin Cavilon and Steri-Strips. The pat ient's left chest drain incisional bandage was then removed at his request and the bilateral chest auscultated where bilateral breath sounds were noted although some diminishment on the left side was appreciated. The patient was then returned to anesthesia where he was revived and extubated without complication having tolerated the procedure well. Type of Anesthesia:: General Anesthesiologist: Duane Guerra Special Medications: none Specimen's removed: deep right cervical lymph node Drains: none Estimated Blood Loss (mL): 10 mL Fluids Replaced: 900 mL Grafts/Implants Used: none - Complications none - Admit VTE Documentation VTE Present on Admission: No VTE Mechan Device Prophylaxis: SCD's VTE Pharm Prophylaxis ordered?: No
--- NOTE | 2019-02-04 14:07 | DCINST_ITS ---
You will use the following diet at home:: No restrictions Discharge Activity: Return to Normal Activity May shower in (days): 2 Call your doctor if your incision/area has: Continuous Slow Oozing, Increased Redness, Swelling at the incision site Call your doctor if you observe: Fever of 101 or Higher, Uncontrolled pain Allergies/Adverse Reactions: Allergies No Known Allergies Allergy (Verified 02/03/19 14:50) Medications to take at Discharge RX: Amlodipine [Norvasc] 5 mg PO QHS 10/24/16 RX: Ascorbic Acid [Vitamin C] 1,000 mg PO DAILY 10/24/16 RX: Aspirin [Aspirin EC] 81 mg PO DAILY 10/24/16 RX: Cholecalciferol (Vitamin D3) [Vitamin D3] 2,000 unit PO DAILY 10/24/16 RX: Doxazosin Mesylate [Cardura] 2 mg PO QHS 10/24/16 RX: Levothyroxine [Synthroid] 75 mcg PO QHS 10/24/16 RX: Multivitamin [Multiple Vitamins] 1 each PO DAILY 10/24/16 RX: Omeprazole [Prilosec] 10 mg PO DAILY 10/24/16 RX: Atorvastatin Calcium [Lipitor] 20 mg PO QHS 01/25/19 RX: Ibuprofen [Motrin] 600 mg PO Q8H PRN PRN #30 tab 02/02/19 Primary Care Physician: Isrrael Zaldivar MD [Primary Care Provider] - Test Results: Test results from this visit will be discussed in further detail at your follow- up appointment, if applicable. Please Follow Up With: Felton Sanders MD When: 2 weeks
== END 2019-02-04 16:30 | disposition home or self-care (01) ==
LOC: SDC 10:08 → AC 10:11
PROVIDERS: Family Provider Family Medicine; PCP Family Medicine; Referring Provider Otolaryngology; Visit Provider Otolaryngology
PROC: 07T10ZZ Resection of Right Neck Lymphatic, Open Approach (ICD-10-PCS; CPT 38724; principal; 2019-02-04 11:45)
DX: C34.92 Malignant neoplasm of unspecified part of left bronchus or lung (principal); C77.0 Secondary and unspecified malignant neoplasm of lymph nodes of head, face and neck; C78.2 Secondary malignant neoplasm of pleura; C78.1 Secondary malignant neoplasm of mediastinum; E07.9 Disorder of thyroid, unspecified; K21.9 Gastro-esophageal reflux disease without esophagitis; E78.00 Pure hypercholesterolemia, unspecified; Z79.899 Other long term (current) drug therapy; Z79.82 Long term (current) use of aspirin; I10 Essential (primary) hypertension
CPT/HCPCS: 00320; 38510; 71045; 88305; 88331; 88341; 88342; 93005; J7120; J2405

== ENCOUNTER → 2019-02-07 | Outpatient (CLI) | payer MEDICARE, SELFPAY ==
[2019-02-04 11:09] VITALS: BMI 27.9
--- NOTE | 2019-02-07 16:26 | US_ITS ---
STUDY: SOFT TISSUE NECK ULTRASOUND REASON FOR EXAM: Male, 73 years old. Hematoma at incision site for prior lymphadenectomy TECHNIQUE: Ultrasound evaluation of the soft tissue neck was performed with real-time and static brar-scale imaging. COMPARISON: None. FINDINGS: Multiple ultrasound images were obtained of the right neck at level of prior incision. In the region of interest, an ill-defined low echogenicity collection is identified that measures 23 x 17 mm. This could represent a seroma or nonacute hematoma. The possibility of infection is not entirely excluded. Soft tissue edema is noted locally. US/Head/Neck Soft Tissue IMPRESSION: Ill-defined 23 x 17 mm collection deep to the incision site in area of interest. Differential includes seroma and nonacute hematoma, with infection not excluded. Electronically Signed: Guzman Velazco MD at 19:44 EDT Tel , Service support ,
== END | disposition home or self-care (01) ==
LOC: US 16:24
PROVIDERS: Family Provider Family Medicine; PCP Family Medicine; Referring Provider Otolaryngology; Visit Provider Otolaryngology
DX: L76.32 Postprocedural hematoma of skin and subcutaneous tissue following other procedure (principal)
CPT/HCPCS: 76536

== ENCOUNTER 2019-02-08 14:44 | Emergency (ER) | payer MEDICARE, SELFPAY ==
[2019-02-04 11:09] VITALS: BMI 27.9
[2019-02-08 14:45] VITALS: BP 115/69; PULSE 92; RESP 16; TEMP 36.8; O2SAT 98; BMI 28.2
--- NOTE | 2019-02-08 15:22 | ED.DCSUM_ITS ---
- ER Visit Summary Date of Service: 02/08/19 Chief Complaint: [Bleeding from biopsy site on the neck] History of Present Illness: The patient is a 73 M [presents to the emergency department with complaint of some bleeding from the right side of the neck where he had a biopsy about 5 days ago. Patient has history of lung cancer and had a mass in the side of the neck that was biopsied by Dr. Felton Sanders. Patient's had swelling to the area and yesterday Dr. Sanders ordered a soft tissue ultrasound that showed a small hematoma that appeared nonacute the right side of the neck. Today patient was sitting up and noticed some blood dripping down the lateral aspect of his neck. They present to the ER for evaluation. Patient has no other medical history. He is not on blood thinners.] Patient denies any difficulty breathing or difficulty swallowing. The states that actually the swelling has been improving. Physical Examination: [HEENT-PERRLA, EOMI. Cranial nerves II through XII grossly intact. TMs clear. Mucous membranes moist. No adenopathy. Right side of neck-patient has soft tissue swelling as well as ecchymosis. There is a healing incision with Steri-Strips of breath. Minimal amount of blood oozing from the lateral aspect of the incision when I try to compress the area. There is no foul odor or cellulitis noted to the area. Cardiovascular-regular rate and rhythm without murmur or ectopy Lungs-clear to auscultation, chest wall stable without crepitus or subcu emphysema Abdomen-normoactive bowel sounds, soft, nontender, no rebound or rigidity, no peritoneal signs. Extremities-intact ?4, normal range of motion, normal pulses, atraumatic] Test Results: [None indicated] Emergency Department Course and Treatment: [I discussed case with Dr. Felton Sanders who asked that we apply a compression dressing to the area and he can see the patient for his scheduled appointment in 2 days. I feel this is reasonable. Patient looks well in the amount of blood oozing is minimal at this time I suspect this may just be the hematoma draining.] Treatment Plan: [Compression dressing and follow-up with ENT in 2 days] Disposition: [Discharged home in stable condition] Impression: [Postop wound check-bleeding] This note was generated with [employer] software. It may contain incorrect words, spelling, and punctuation that were not noted in review of the chart prior to signing ED Disposition - Plan for ED Patient: Referrals: Isrrael Zaldivar MD [Primary Care Provider] -
--- NOTE | 2019-02-08 15:22 | ED.DEP ---
ED Disposition - Plan for ED Patient: Instructions: ED Wound Check Post Op Bleeding Referrals: Isrrael Zaldivar MD [Primary Care Provider] - Felton Sanders MD [STAFF PHYSICIAN] - 2 Days
[2019-02-08 15:50] VITALS: PULSE 89; RESP 14; O2SAT 99
== END 2019-02-08 15:51 | disposition home or self-care (01) ==
PROVIDERS: Emergency Provider Emergency Medicine; Family Provider Family Medicine; PCP Family Medicine
DX: L76.22 Postprocedural hemorrhage of skin and subcutaneous tissue following other procedure (principal); C34.90 Malignant neoplasm of unspecified part of unspecified bronchus or lung; Z79.899 Other long term (current) drug therapy
CPT/HCPCS: 99282

== ENCOUNTER 2019-02-08 22:01 | Emergency (ER) | payer MEDICARE, SELFPAY ==
[2019-02-08 14:45] VITALS: BMI 28.2
[2019-02-08 22:02] VITALS: BP 129/70; PULSE 81; RESP 16; TEMP 36.7; O2SAT 97; BMI 27.6
--- NOTE | 2019-02-08 22:39 | ED.VISSUMM ---
- ER Visit Summary Date of Service: 02/08/19 Chief Complaint: Bleeding biopsy site History of Present Illness: The patient is a 73 M who presents for the second time today for evaluation of a neck biopsy site that is bleeding. Patient had a biopsy performed 4 days ago for a neck tumor. Yesterday he had an ultrasound that showed a small hematoma. Today he began having bleeding from the lateral portion of the biopsy site. Patient was evaluated and the wound was redressed. Dr. Sanders was consulted, and patient was reassured. Bleeding is stopped at time of discharge. 1 hour prior to presentation, patient noted that the bleeding had started again. He states he is not on any blood thinners. He has no history of bleeding disorder. He has no other complaints other than the bleeding of the site. Physical Examination: Patient is afebrile and hemodynamically stable. Well-nourished well-developed in no distress. Skin is warm and dry, pink. Patient has a horizontal incision on the right mid anterior neck with surrounding and underlying skin ecchymosis and induration. Also a large mass as well as superior to the biopsy site, which has been there for several days. There is a punctate point along the incision on the lateral edge where a small oozing of dark blood is coming out, increased if pressure is applied to the medial portion of the biopsy site. Bedside ultrasound shows a small fluid collection beneath the medial portion of the biopsy site. Test Results: [] Emergency Department Course and Treatment: Patient has a small amount of oozing blood, increased with pressure over the site of a small fluid collection based on ultrasound. This is likely the hematoma that was noted yesterday, and it is my professional opinion that the hematoma is simply draining. It is a very small amount of oozing, but patient is very disturbed by it and wants it to stop, despite us discussing that the blood may still be collecting underneath the skin if we close off the drainage site . Patient was discussed with Dr. Sanders again, and we discussed care of the site -- Dr. Sanders requested a pressure dressing be placed over the site rather than any attempt to stop the drainage, such as placing a small amount of Dermabond over the site. A pressure dressing was placed with Coban to avoid any circumferential compression on the patient's neck. Patient did not feel like his airway was being closed off or feel any dizziness or lightheadedness. He did feel the pressure that was focal over the actual biopsy site. Patient was given care instructions and will remove the dressing immediately if at any time he feels short of breath, feels like it is making it uncomfortable to swallow, or if he has any dizziness or lightheadedness or severe discomfort. Patient discharged home and will keep his appointment in 2days with Dr. Sanders. Treatment Plan: [] Disposition: [] Impression: Draining hematoma of a biopsy site of the neck This note was generated with [employer] dictation software. It may contain incorrect words, spelling, and punctuation that were not noted in review of the chart prior to signing ED Disposition - Plan for ED Patient: Disposition: Home or Assisted Living Instructions: Incision Care Referrals: Isrrael Zaldivar MD [Primary Care Provider] - Felton Sanders MD [STAFF PHYSICIAN] - Keep Ronnie appointment Additional Instructions: We have placed a pressure dressing over your biopsy site to try and stop the hematoma from draining. You may notice that it still oozes, and this is not concerning for life-threatening bleeding. If at any point you have significant massive bleeding, return immediately to the emergency department. If at any time you feel like the pressure dressing on the biopsy site is making it difficult to breathe, making it difficult to swallow, it is causing you to be lightheaded or dizzy, or is causing you significant discomfort, please take off the dressing immediately and cover the biopsy site with a regular gauze or bandage. Keep your appointment on with Dr. Sanders. If you have any worsening of your condition or any new concerning symptoms, please return immediately to the emergency department for another evaluation.
--- NOTE | 2019-02-08 23:21 | ED.RN ---
Assisted Dr. Saleh in placing pressure bandage to wound.
[2019-02-08 23:32] VITALS: BP 119/76; PULSE 82; RESP 20; O2SAT 97
--- NOTE | 2019-02-08 23:33 | ED.RN ---
THIS NURSE REVIEWED D/C INSTRUCTIONS WITH PT. PT VERBALIZED UNDERSTANDING OF INSTRUCTIONS. PT DENIES FURTHER NEEDS OR QUESTIONS AT THIS TIME. PT AMBULATES FROM ROOM ON OWN WITHOUT ASSISTANCE FROM STAFF
== END 2019-02-08 23:34 | disposition home or self-care (01) ==
PROVIDERS: Emergency Provider Emergency Medicine; Family Provider Family Medicine; PCP Family Medicine
DX: L76.32 Postprocedural hematoma of skin and subcutaneous tissue following other procedure (principal); R22.1 Localized swelling, mass and lump, neck; C34.90 Malignant neoplasm of unspecified part of unspecified bronchus or lung; Z79.899 Other long term (current) drug therapy
CPT/HCPCS: 99282

== ENCOUNTER 2019-02-23 16:21 | Emergency (ER) | payer MEDICARE, SELFPAY ==
[2019-02-23 12:24] VITALS: BMI 27.0
[2019-02-23 16:22] VITALS: BP 116/62; PULSE 105; RESP 16; TEMP 36.5; O2SAT 96; BMI 28.0
--- NOTE | 2019-02-23 16:31 | ED.RN ---
p reports severe pain in right shoulder. per pt family, he has had pain on and off for a while, but today it is severe. he has only has tylenol at home.
--- NOTE | 2019-02-23 16:47 | CT_ITS ---
STUDY: CT SOFT TISSUE NECK WITHOUT CONTRAST REASON FOR EXAM: Male, 73 years old. Right-sided neck pain with history of anterior neck biopsy and lung cancer RADIATION DOSAGE (If Supplied By Facility): CTDIvol = ( 20.33 ) mGy, DLP = ( 629.53 ) mGycm TECHNIQUE: The patient was scanned in a multi-detector CT scanner. High resolution transaxial imaging was performed without the administration of intravenous contrast material. Sagittal and coronal images were reconstructed. Individualized dose optimization techniques were used for this CT. COMPARISON: 12/30/2018 FINDINGS: Normal bilateral parotid glands. Normal bilateral fashion consultant sales spaces. Normal bilateral parapharyngeal spaces. Normal bilateral carotid spaces. Normal bilateral sublingual and submandibular glands and spaces. Normal visualized nasopharynx. Normal retropharyngeal space. Normal perivertebral space. Normal visualized bilateral faucial tonsils. The visualized tongue, tongue base and oropharynx are normal. There has been interval enlargement of an ill-defined mass in the right lower neck the level of the cricoid cartilage, now measuring 5.1 x 6.3 cm on image 36 of series 2. Postoperative changes involving the adjacent sternocleidomastoid muscle. It abuts the thyroid cartilage, but no thyroid cartilage destruction is seen. There has been interval progression of diffuse adenopathy in the right neck. This includes a right supraclavicular node measuring 18 x 12 mm on image 37 and a right level 5 node measuring 14 x 14 mm on image 46. Normal epiglottis, bilateral vallecula and hypopharynx. The pre-epiglottic and paraglottic adipose spaces are normal. Normal visualized bilateral piriform sinuses, aryepiglottic folds, vocal cords, and arytenoid-cricoid articulations. Normal subglottic trachea. Normal bilateral lobes of the thyroid gland. Spiculated mass is present in the left upper lobe compatible with malignancy measuring 24 x 17 mm. This was present previously. Confluent incompletely imaged upper mediastinal adenopathy is also noted, present previously. Interval enlargement of a right paratracheal mass, now measuring 35 x 29 mm on image 17 of series 2. Normal visualized paranasal sinuses. There is multilevel degenerative changes of the cervical spine. Bilateral lens replacements. CT/Soft Tissue Neck without Contr IMPRESSION: Interval enlargement of a mass in the right lower neck at the level of the cricoid cartilage. Postbiopsy changes involving the right sternocleidomastoid muscle. Progressing right-sided neck adenopathy. Enlarging right paratracheal mass. Electronically Signed: Guzman Velazco MD at 17:40 EDT Tel , Service support ,
[2019-02-23] MEDS: HYDROmorphone 1 MG/ML Syringe IV (17:04)
[2019-02-23 17:24] LABS: Absolute Lymphocyte Count 1.13 X10^3/ul (0.83-4.51); Basophil# 0.04 X10^3/uL; Basophil% 0.2 % (0-1); Eosinophil# 0.31 X10^3/uL; Eosinophils% 1.8 % (0-5); Hematocrit 29.6 % (40-54); Hemoglobin 9.7 g/dl (13.0-16.5); Lymphocyte # 1.13 X10^3/ul (4.0); Lymphocyte % 6.5 % (19-41); Mean Corp Hgb Conc 32.8 g/gl (32-36); Mean Corpuscular Hgb 27.7 pg (27.0-32.0); Mean Corpuscular Volume 84.6 fL (80-94); Mean Platelet Vol. 8.2 fl (6.2-12.0); Monocyte# 0.87 X10^3/uL; Neutrophil # 14.97 X10^3/uL (2.7-7.7); Neutrophil % 86.2 % (47-70); Platelet Count 273 K/mm3 (150-450); RBC Distribution Width CV 13.6 % (11.6-14.6); RBC Distribution Width SD 41.4 fl (35.1-43.9); White Blood Count 17.4 K/mm3 (4.4-11.0)
[2019-02-23 17:28] LABS: POSITIVE COUNT NO; POSITIVE DIFFERENTIAL NO; POSITIVE MORPHOLOGY NO
--- NOTE | 2019-02-23 17:29 | EKG12_ITS ---
Test Reason : NECK SHOULDER Blood Pressure : / mmHG Vent. Rate : 104 BPM Atrial Rate : 104 BPM P-R Int : 182 ms QRS Dur : 084 ms QT Int : 348 ms P-R-T Axes : 046 -20 073 degrees QTc Int : 457 ms Sinus tachycardia with Premature atrial complexes Otherwise normal ECG Confirmed by JOHNATHON THOMAS ([id number]), social media editor MEGHANN MARKS ([id number]) on 02/28/2019 2:48:17 PM Referred By: Santi Liu Confirmed By:ALEXA THOMAS
[2019-02-23 17:34] LABS: Anion Gap 6 (5-15); BUN 19 mg/dL (7-18); BUN/Creat Ratio 22.9 RATIO (10-20); Calcium,Total 8.5 mg/dL (8.5-10.1); Chloride 104 mmol/L (98-107); Creatinine, Serum 0.83 mg/dL (0.70-1.30); EST Glomerular Filtration Rate 96 mL/min (>60); Est Glom Filt Rate - Afr Amer 117 mL/min (>60); Estimated Creatinine Clearance 71.53 ml/min; Glucose 159 mg/dL (74-106); Potassium 3.4 mmol/L (3.5-5.1); Sodium Level 136 mmol/L (136-145)
--- NOTE | 2019-02-23 18:40 | ED.DCSUM_ITS ---
- ER Visit Summary Date of Service: 02/23/19 Chief Complaint: Pain History of Present Illness: The patient is a 73 M with pain in his right side neck. Pain started about 2.5 hours ago. He has had this in the past, but never this severe. He tried [place] and Motrin, but nothing seems to help. He does have a history of non-small cell lung cancer. He underwent chemotherapy, most recent dose was earlier today. He also had a biopsy to his anterior neck about 2 weeks ago. There continues to be a wound at the biopsy site and it is oozing blood since the biopsy. He does have follow-up with wound care. He is new issues or pain at the biopsy site. His previous biopsies were complicated with a pneumothorax. He is denying shortness of breath or chest pain. Denies any weakness or numbness. Denies any fevers. Physical Examination: Afebrile and vital signs unremarkable except for heart rate of 105. The patient appears to be very uncomfortable. He can barely move or open his eyes. He is alert and responsive. Head exam unremarkable. Right trapezius is exquisitely tender to palpation. He does have some right adenopathy. Anterior neck biopsy site is oozing blood which slows with pressure. No sign of erythema or warmth. Lungs clear. Heart regular. Neurovascular intact in his extremities. Test Results: White count 17.4 and hemoglobin 9.7. Potassium 3.4 and glucose 159. EKG showed sinus rhythm at a rate of 104. CT neck showed an enlarging right paratracheal mass and enlarging right side adenopathy. There are postbiopsy changes. Emergency Department Course and Treatment: Patient treated with Dilaudid. He had good resolution of his pain. I spoke with Dr. Abad. Who advised that the leukocytosis could be attributed to his malignancy. The patient has no other signs of infection or fever. The patient will follow up with his oncologist tomorrow. I spoke with Dr. Sanders. He felt that the patient might have some mass that is expanding to involve the 11th cranial nerve which is causing his pain. He also felt that the patient was appropriate for outpatient follow-up with oncology and with outpatient pain control. Treatment Plan: We will increase his pain medicine to Percocet. Follow-up with his doctors. Call tomorrow. Disposition: Discharge Impression: 1. Right-sided neck pain This note was generated with [employer] dictation software. It may contain incorrect words, spelling, and punctuation that were not noted in review of the chart prior to signing ED Disposition - Plan for ED Patient: Referrals: Isrrael Zaldivar MD [Primary Care Provider] -
--- NOTE | 2019-02-23 18:40 | ED.DEP ---
ED Disposition - Plan for ED Patient: Instructions: ED Neck Pain No Trauma Prescriptions: Oxycodone HCl/Acetaminophen [Percocet 5/325] 1 tab PO Q6H PRN PRN 3 Days #12 tab PRN Reason: Pain Referrals: Santi Liu MD [STAFF PHYSICIAN] - Felton Sanders MD [STAFF PHYSICIAN] -
[2019-02-23 19:19] VITALS: BP 137/70; PULSE 103; RESP 18; O2SAT 96
== END 2019-02-23 19:21 | disposition home or self-care (01) ==
PROVIDERS: Emergency Provider Emergency Medicine; Family Provider Family Medicine; PCP Family Medicine
DX: M54.2 Cervicalgia (principal); R22.1 Localized swelling, mass and lump, neck; R51 Headache; I49.1 Atrial premature depolarization; I10 Essential (primary) hypertension; E78.00 Pure hypercholesterolemia, unspecified; E03.9 Hypothyroidism, unspecified; C34.90 Malignant neoplasm of unspecified part of unspecified bronchus or lung; Z79.899 Other long term (current) drug therapy
CPT/HCPCS: 70490; 80048; 85025; 93005; 96374; 99284; J7050; A4216; J9271

== ENCOUNTER 2019-02-24 11:17 | Outpatient (RCR) | payer MEDICARE, SELFPAY ==
[2019-02-21 13:13] VITALS: BMI 27.5
[2019-02-23 16:22] VITALS: BMI 28.0
[2019-02-24 11:49] VITALS: BP 98/60; PULSE 92; RESP 18; TEMP 36.4; BMI 28.0
--- NOTE | 2019-02-24 19:36 | PCM.WC.HP ---
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 History of Wound: Mr. Reyna is a 73-year-old who was referred here by his oncologist due to concern for draining neck swelling. Patient states that he recently had a lymph node biopsy due to new diagnosis of lung cancer with possible meta stasis. Since biopsy, said area has intermittently bled and remains swollen. No significant wound/ulcer. Bleeding is said to be from a pinpoint hole. Feels well otherwise. Past Medical History Past Medical History: Chronic Problems (Last Reviewed 02/23/19 @ 09:56 by Miriam Patino) Primary lung cancer (Chronic) Non-small cell carcinoma of lung (Chronic) HTN (hypertension) (Chronic) HLD (hyperlipidemia) (Chronic) Hypothyroidism (Chronic) Allergies/Adverse Reactions: Allergies No Known Allergies Allergy (Verified 02/23/19 16:21) Home Medications: Ambulatory Orders Medication Instructions Recorded Amlodipine [Norvasc] 5 mg PO QHS 10/24/16 Ascorbic Acid [Vitamin C] 1,000 mg PO DAILY 10/24/16 Cholecalciferol (Vitamin D3) 2,000 unit PO DAILY 10/24/16 [Vitamin D3] Doxazosin Mesylate [Cardura] 2 mg PO QHS 10/24/16 Levothyroxine [Synthroid] 75 mcg PO QHS 10/24/16 Multivitamin [Multiple Vitamins] 1 each PO DAILY 10/24/16 Omeprazole [Prilosec] 20 mg PO DAILY 10/24/16 Atorvastatin Calcium [Lipitor] 20 mg PO QHS 01/25/19 Ibuprofen [Motrin] 600 mg PO Q8H PRN PRN #30 tab 02/02/19 Acetaminophen [Tylenol Tablet] 650 mg PO Q4H PRN PRN tablet 02/04/19 Oxycodone HCl/Acetaminophen 1 tab PO Q6H PRN PRN 3 Days #12 tab 02/23/19 [Percocet 5/325] Smoking Status: Never smoker Review of Systems Constitutional: Denies: Anorexia, Chills, Fever Eyes: Denies: Blurred vision, Pain, Redness HEENT: Denies: Difficulty Swallowing Cardiovascular: Denies: Chest Pain, Chest Tightness Gastrointestinal: Denies: Abdominal Pain, Hematemesis, Vomiting Skin: Denies: Jaundice - Physical Exam Vital Signs Temp Pulse Resp BP 97.5 F L 92 18 98/60 02/24/19 11:49 02/24/19 11:49 02/24/19 11:49 02/24/19 11:49 General: Alert, Oriented x3, Cooperative, No apparent distress HEENT: Atraumatic, Normocephalic Oral: Moist Mucosa Neck: Supple, - - Localized anterior neck swelling. Lungs: Normal air movement Cardiovascular: Regular rate, Regular Rhythm, Normal S1, Normal S2 Abdomen: Soft, Non Tender Extremities: No cyanosis Wound Measurements and Assessment WC - Nurse 1 - General Ulcer Measurement Start: 02/24/19 11:41 Freq: Status: Active Protocol: Activity Type Activity Date Activity User E-Sign Co-Sign Detail Recorded Client Recorded Date Recorded By Document 02/24/19 11:49 [id number] 02/24/19 11:59 RB 02/24/19 11:49 Wound Center Nurse 1 [Ulcer Assessment] 1. R neck -Combined with other wound No -Current Size (cm) - Length 0.1 -Current Size (cm) - Width 0.1 -Current Size (cm) - Depth 0.1 -Total Square Cm 0.01 -Photo Taken Yes -Tunneling No -Undermining/Tunneling No -Circular Undermining No -Exudate Amt Medium -Exudate Type Serosanguineous -Wound Margin Distinct, Outline Attached -Granulation Amt Medium (34-66%) -Granulation Quality Maud Red -Slough/Fibrin Yes -Necrosis Amt Small (1-33%) -Necrotic Tissue Type Adherent Slough -Structure Exposed N/A -Texture (Ayala-wound Skin Appearance) Assessed -Moisture (Ayala-wound Skin Appearance Assessed ) -Color (Ayala-wound Skin Appearance) Assessed -Temperature (Ayala-wound Skin No Abnormality Appearance) (Pt Warm) -Tenderness on Palpation (Ayala-wound No Skin Appearance) -Ulcer Cleansing Rinsed/ Irrigated with Saline -Foul Odor after Cleansing No -Anesthetic Used 4% Lidocaine Solution WC - Nurse 2 - General Ulcer CM Notes Start: 02/24/19 11:41 Freq: Status: Active Protocol: Activity Type Activity Date Activity User E-Sign Co-Sign Detail Recorded Client Recorded Date Recorded By Document 02/24/19 12:11 MW [id number] 02/24/19 12:22 MW 02/24/19 12:11 Wound Center Nurse 2 [Procedure/Treatment] -Time 12:11 -Correct Patient Yes -Correct Side, Site, Position Yes -Correct Procedure Yes -Procedure Performed No -Post Debridement Size (cm) - Length 0 -Post Debridement Size (cm) - Width 0 -Post Debridement Size (cm) - Depth 0 -Total Square Cm 0 -Wound/Ulcer Outcome Healed- Epithelialized [See Physician Procedure note for Specifics] Pain Scale: 0-10 Numeric [Pain] -Is Patient Pain Free? Yes Musculoskeletal: No Muscle Wasting Neurological: Cranial nerves II-XII grossly intact Psych/Mental Status: Normal Affect Debridement Note Post-Debridement Measurements/Treatment - Nurse 2 - General Ulcer CM Notes Start: 02/24/19 11:41 Freq: Status: Active Protocol: Activity Type Activity Date Activity User E-Sign Co-Sign Detail Recorded Client Recorded Date Recorded By Document 02/24/19 12:11 MW [id number] 02/24/19 12:22 MW 02/24/19 12:11 Wound Center Nurse 2 1. R neck -Time 12:11 -Correct Patient Yes -Correct Side, Site, Position Yes -Correct Procedure Yes -Procedure Performed No -Post Debridement Size (cm) - Length 0 -Post Debridement Size (cm) - Width 0 -Post Debridement Size (cm) - Depth 0 -Total Square Cm 0 -Wound/Ulcer Outcome Healed- Epithelialized Pain Scale: 0-10 Numeric Is Patient Pain Free? Yes No debridement was completed today Assessment/Plan Active Problems (Last Reviewed 02/23/19 @ 09:56 by Miriam Patino) Metastasis to cervical lymph node (Acute) Lung metastases (Acute) Encounter for education (Acute) Localized swelling, mass and lump, neck (Acute) Assessment: Same as above. Plan: Patient presents here due to occasionally draining localized neck swelling likely postsurgical hematoma. Denies any known precipitating factor to the occasional bleeding noted. He is currently not on a blood thinner and has cut down on his NSAID use. Examination of swelling with a punctum noted however no significant depth. Dark blood expressed with significant reduction in swelling size. Advised to apply gauze and ABD dressing over area with firm dressing support. If intermittent bleeding continues, may benefit from possible cauterization. Review of his blood work shows persistent reduction in his hemoglobin. Most recent CBC with a hemoglobin of 9.7, down from 12 about a month ago. He was advised to follow-up with his ENT physician/primary care physician to monitor this closely. He expressed understanding. They had the opportunity to ask questions which were answered. Since he has no significant open wound at this time, he will be discharged from the wound clinic. He was advised to call with any concerns. This note was generated with [employer] dictation software. It may contain incorrect words, spelling, and punctuation that were not noted in checking the note before signing.
--- NOTE | 2019-02-24 19:40 | HP.PCM_ITS ---
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 History of Wound: Mr. Reyna is a 73-year-old who was referred here by his oncologist due to concern for draining neck swelling. Patient states that he recently had a lymph node biopsy due to new diagnosis of lung cancer with possible meta stasis. Since biopsy, said area has intermittently bled and remains swollen. No significant wound/ulcer. Bleeding is said to be from a pinpoint hole. Feels well otherwise. Past Medical History Past Medical History: Chronic Problems (Last Reviewed 02/23/19 @ 09:56 by Miriam Patino) Primary lung cancer (Chronic) Non-small cell carcinoma of lung (Chronic) HTN (hypertension) (Chronic) HLD (hyperlipidemia) (Chronic) Hypothyroidism (Chronic) Allergies/Adverse Reactions: Allergies No Known Allergies Allergy (Verified 02/23/19 16:21) Home Medications: Ambulatory Orders Medication Instructions Recorded Amlodipine [Norvasc] 5 mg PO QHS 10/24/16 Ascorbic Acid [Vitamin C] 1,000 mg PO DAILY 10/24/16 Cholecalciferol (Vitamin D3) 2,000 unit PO DAILY 10/24/16 [Vitamin D3] Doxazosin Mesylate [Cardura] 2 mg PO QHS 10/24/16 Levothyroxine [Synthroid] 75 mcg PO QHS 10/24/16 Multivitamin [Multiple Vitamins] 1 each PO DAILY 10/24/16 Omeprazole [Prilosec] 20 mg PO DAILY 10/24/16 Atorvastatin Calcium [Lipitor] 20 mg PO QHS 01/25/19 Ibuprofen [Motrin] 600 mg PO Q8H PRN PRN #30 tab 02/02/19 Acetaminophen [Tylenol Tablet] 650 mg PO Q4H PRN PRN tablet 02/04/19 Oxycodone HCl/Acetaminophen 1 tab PO Q6H PRN PRN 3 Days #12 tab 02/23/19 [Percocet 5/325] Smoking Status: Never smoker Review of Systems Constitutional: Denies: Anorexia, Chills, Fever Eyes: Denies: Blurred vision, Pain, Redness HEENT: Denies: Difficulty Swallowing Cardiovascular: Denies: Chest Pain, Chest Tightness Gastrointestinal: Denies: Abdominal Pain, Hematemesis, Vomiting Skin: Denies: Jaundice - Physical Exam Vital Signs Temp Pulse Resp BP 97.5 F L 92 18 98/60 02/24/19 11:49 02/24/19 11:49 02/24/19 11:49 02/24/19 11:49 General: Alert, Oriented x3, Cooperative, No apparent distress HEENT: Atraumatic, Normocephalic Oral: Moist Mucosa Neck: Supple, - - Localized anterior neck swelling. Lungs: Normal air movement Cardiovascular: Regular rate, Regular Rhythm, Normal S1, Normal S2 Abdomen: Soft, Non Tender Extremities: No cyanosis Wound Measurements and Assessment WC - Nurse 1 - General Ulcer Measurement Start: 02/24/19 11:41 Freq: Status: Active Protocol: Activity Type Activity Date Activity User E-Sign Co-Sign Detail Recorded Client Recorded Date Recorded By Document 02/24/19 11:49 [id number] 02/24/19 11:59 RB 02/24/19 11:49 Wound Center Nurse 1 [Ulcer Assessment] 1. R neck -Combined with other wound No -Current Size (cm) - Length 0.1 -Current Size (cm) - Width 0.1 -Current Size (cm) - Depth 0.1 -Total Square Cm 0.01 -Photo Taken Yes -Tunneling No -Undermining/Tunneling No -Circular Undermining No -Exudate Amt Medium -Exudate Type Serosanguineous -Wound Margin Distinct, Outline Attached -Granulation Amt Medium (34-66%) -Granulation Quality [place] Red -Slough/Fibrin Yes -Necrosis Amt Small (1-33%) -Necrotic Tissue Type Adherent Slough -Structure Exposed N/A -Texture (Ayala-wound Skin Appearance) Assessed -Moisture (Ayala-wound Skin Appearance Assessed ) -Color (Ayala-wound Skin Appearance) Assessed -Temperature (Ayala-wound Skin No Abnormality Appearance) (Pt Warm) -Tenderness on Palpation (Ayala-wound No Skin Appearance) -Ulcer Cleansing Rinsed/ Irrigated with Saline -Foul Odor after Cleansing No -Anesthetic Used 4% Lidocaine Solution WC - Nurse 2 - General Ulcer CM Notes Start: 02/24/19 11:41 Freq: Status: Active Protocol: Activity Type Activity Date Activity User E-Sign Co-Sign Detail Recorded Client Recorded Date Recorded By Document 02/24/19 12:11 MW [id number] 02/24/19 12:22 MW 02/24/19 12:11 Wound Center Nurse 2 [Procedure/Treatment] -Time 12:11 -Correct Patient Yes -Correct Side, Site, Position Yes -Correct Procedure Yes -Procedure Performed No -Post Debridement Size (cm) - Length 0 -Post Debridement Size (cm) - Width 0 -Post Debridement Size (cm) - Depth 0 -Total Square Cm 0 -Wound/Ulcer Outcome Healed- Epithelialized [See Physician Procedure note for Specifics] Pain Scale: 0-10 Numeric [Pain] -Is Patient Pain Free? Yes Musculoskeletal: No Muscle Wasting Neurological: Cranial nerves II-XII grossly intact Psych/Mental Status: Normal Affect Debridement Note Post-Debridement Measurements/Treatment - Nurse 2 - General Ulcer CM Notes Start: 02/24/19 11:41 Freq: Status: Active Protocol: Activity Type Activity Date Activity User E-Sign Co-Sign Detail Recorded Client Recorded Date Recorded By Document 02/24/19 12:11 MW [id number] 02/24/19 12:22 MW 02/24/19 12:11 Wound Center Nurse 2 1. R neck -Time 12:11 -Correct Patient Yes -Correct Side, Site, Position Yes -Correct Procedure Yes -Procedure Performed No -Post Debridement Size (cm) - Length 0 -Post Debridement Size (cm) - Width 0 -Post Debridement Size (cm) - Depth 0 -Total Square Cm 0 -Wound/Ulcer Outcome Healed- Epithelialized Pain Scale: 0-10 Numeric Is Patient Pain Free? Yes No debridement was completed today Assessment/Plan Active Problems (Last Reviewed 02/23/19 @ 09:56 by Miriam Patino) Metastasis to cervical lymph node (Acute) Lung metastases (Acute) Encounter for education (Acute) Localized swelling, mass and lump, neck (Acute) Assessment: Same as above. Plan: Patient presents here due to occasionally draining localized neck swelling likely postsurgical hematoma. Denies any known precipitating factor to the occasional bleeding noted. He is currently not on a blood thinner and has cut down on his NSAID use. Examination of swelling with a punctum noted however no significant depth. Dark blood expressed with significant reduction in swelling size. Advised to apply gauze and ABD dressing over area with firm dressing ley pport. If intermittent bleeding continues, may benefit from possible cauterization. Review of his blood work shows persistent reduction in his hemoglobin. Most recent CBC with a hemoglobin of 9.7, down from 12 about a month ago. He was advised to follow-up with his ENT physician/primary care physician to monitor this closely. He expressed understanding. They had the opportunity to ask questions which were answered. Since he has no significant open wound at this time, he will be discharged from the wound clinic. He was advised to call with any concerns. This note was generated with Jini dictation software. It may contain incorrect words, spelling, and punctuation that were not noted in checking the note before signing.
== END 2019-03-11 23:59 ==
LOC: WC 11:17
PROVIDERS: Family Provider Family Medicine; PCP Family Medicine; Visit Provider Internal Medicine
DX: Z09 Encounter for follow-up examination after completed treatment for conditions other than malignant neoplasm (principal); R22.1 Localized swelling, mass and lump, neck; C77.0 Secondary and unspecified malignant neoplasm of lymph nodes of head, face and neck; C78.00 Secondary malignant neoplasm of unspecified lung; E78.5 Hyperlipidemia, unspecified; I10 Essential (primary) hypertension; Z79.899 Other long term (current) drug therapy
CPT/HCPCS: 99213; G0463

== ENCOUNTER → 2019-03-09 | Outpatient (CLI) | payer MEDICARE, SELFPAY ==
[2019-03-08 13:51] VITALS: BMI 28.5
--- NOTE | 2019-03-09 10:04 | US_ITS ---
STUDY: ABDOMINAL ULTRASOUND -4 QUADRANT. Ascites survey. REASON FOR VISIT: Male, 73 years old. Ascites survey. History of lung cancer. TECHNIQUE: Ultrasound evaluation of the right upper quadrant was performed with real-time and static brar-scale imaging. TECHNICAL QUALITY: Adequate. COMPARISON: None. FINDINGS: All 4 quadrants were examined by ultrasound. There is no evidence of ascites. Small right pleural effusion. US/Abdomen Limited IMPRESSION: No evidence of ascites. Small right pleural effusion. Electronically Signed: Brayan Chaves, at 10:21 EDT , Service support ,
== END | disposition home or self-care (01) ==
LOC: US 10:04
PROVIDERS: Family Provider Family Medicine; PCP Family Medicine; Referring Provider Internal Medicine Hematology & Oncology; Visit Provider Internal Medicine Hematology & Oncology
DX: C77.0 Secondary and unspecified malignant neoplasm of lymph nodes of head, face and neck (principal); C77.1 Secondary and unspecified malignant neoplasm of intrathoracic lymph nodes; Z79.899 Other long term (current) drug therapy; R14.0 Abdominal distension (gaseous)
CPT/HCPCS: 76705

== ENCOUNTER → 2019-06-23 07:35 | Outpatient (CLI) | payer MEDICARE, SELFPAY ==
[2019-06-08 09:35] VITALS: BMI 28.0
--- NOTE | 2019-06-23 07:37 | CT_ITS ---
STUDY: CT SOFT TISSUE NECK WITH CONTRAST REASON FOR EXAM: Male, 74 years old. Lung cancer follow-up. The RADIATION DOSAGE (If Supplied By Facility): CTDIvol = ( 19.61 ) mGy, DLP = ( 2363.51 ) mGycm TECHNIQUE: The patient was scanned in a multi-detector CT scanner. High resolution transaxial imaging was performed following intravenous administration of 75 IV Isovue 300. Sagittal and coronal images were reconstructed. Individualized dose optimization techniques were used for this CT. COMPARISON: 02/23/2019. FINDINGS: Markedly improved, almost resolved previously described cervical adenopathy. As example, a lobulated malignant mass in the lower right neck previously described as measuring 6.3 cm greatest dimension now measures no more than 2.6 cm. More cephalad right paratracheal mass is reduced in size from approximately 4.5 cm greatest dimension to approximately 2.4 cm currently with central low density consistent with necrosis. There is no evidence for current generalized cervical adenopathy. A few scattered lymph nodes are seen bilaterally but not beyond normal limits. No other definite acute abnormalities. Normal bilateral parotid glands. Normal bilateral accountancy professor spaces. Normal bilateral parapharyngeal spaces. Normal bilateral carotid spaces. Normal bilateral sublingual and submandibular glands and spaces. Normal visualized nasopharynx. Normal retropharyngeal space. Normal perivertebral space. Normal visualized bilateral faucial tonsils. The visualized tongue, tongue base and oropharynx are normal. Normal epiglottis, bilateral vallecula and hypopharynx. The pre-epiglottic and paraglottic adipose spaces are normal. Normal visualized bilateral piriform sinuses, aryepiglottic folds, vocal cords, and arytenoid-cricoid articulations. Normal subglottic trachea. Normal visualized paranasal sinuses. Normal visualized cervical spine. See separate report for CT of the chest. CT/Soft Tissue Neck WITH Contrast IMPRESSION: Markedly improved appearance of previous right neck masses and adenopathy. Although 2 separate lower neck and right thoracic inlet masses persist, they're significantly smaller in size as described above. Electronically Signed: Cr Underwood MD at 19:32 EDT , Service support ,
--- NOTE | 2019-06-23 07:37 | CT_ITS ---
STUDY: CT ABDOMEN WITH CONTRAST REASON FOR EXAM: Male, 74 years old. Follow-up lung cancer. RADIATION DOSAGE (If Supplied By Facility): CTDIvol = ( 19.61 ) mGy, DLP = ( 2363.51 ) mGycm TECHNIQUE: Transaxial images were obtained post I.V. administration of 75 IV Isovue 300, and without oral contrast. Sagittal and coronal images were reconstructed. Individualized dose optimization techniques were used for this CT. COMPARISON: 01/25/2019. FINDINGS: Limited views through the lung bases show significant improvement of pulmonary nodules. A small nodule in the posterior right lung base now measures 5 mm, versus 1 cm previously. A previous 1.3 cm nodule in the posterior right costophrenic angle is no longer present. No effusions. There is decreased attenuation of the liver consistent with steatosis. Normal gallbladder and extrahepatic biliary system. Normal spleen. Normal pancreas. Normal bilateral adrenal glands. Normal right kidney. Normal left kidney. Stable bilateral renal cysts. Evaluation of the GI tract is limited by absence of oral contrast. Cannot exclude stomach wall thickening. No dilated loops of bowel or evidence for obstruction. Cannot exclude segmental thickening of the chavarria of the small or large bowel. Cannot exclude enteritis or colitis. Moderate to marked diffuse fecal retention. Diverticulosis without definite diverticulitis. Appendix within normal limits. There is diffuse atherosclerotic calcification of the abdominal aorta, without a demonstrated aneurysm. Normal inferior vena cava. Normal retroperitoneum. Normal abdominal wall. There are diffuse degenerative changes of the visualized lumbar spine. CT/Abdomen WITH IV Contrast IMPRESSION: Markedly improved nodules in the visualized lung bases. Otherwise no significant abnormality in the abdomen. Fecal retention. Electronically Signed: Cr Underwood MD at 19:45 EDT , Service support ,
--- NOTE | 2019-06-23 07:37 | CT_ITS ---
STUDY: CT CHEST WITH CONTRAST REASON FOR EXAM: Male, 74 years old. Follow-up lung cancer. RADIATION DOSAGE (If Supplied By Facility): CTDIvol = ( 19.61 ) mGy, DLP = ( 2363.51 ) mGycm TECHNIQUE: Transaxial imaging was performed following intravenous administration of 75 IV Isovue 300. Individualized dose optimization techniques were used for this CT. COMPARISON: PET scan 01/31/2019. FINDINGS: Mild hyperexpansion of lungs with mild diffuse interstitial prominence. Findings are consistent with chronic pulmonary disease. Overall markedly improved appearance of lungs since previous PET scan. As example, a loculated nodule in the left upper lobe measures 1.3 cm, previously 2.4 cm. Currently, no other definite nodules. No infiltrates. No effusions. Significantly improved right thoracic inlet mass/adenopathy as described on CT of the neck, although abnormal increased soft tissue density is still noted extending down along the right wall of the trachea. Improved adenopathy in the left prevascular space where greatest dimension of the mass is now approximately 2.4 cm versus 3.4 cm previously. Additional adenopathy along side the pulmonary trunk shows decreased attenuation consistent with necrosis. Currently, no evidence of definite hilar adenopathy. Normal heart size. Pulmonary artery and aorta grossly normal for age. Central airways are adequately patent. See separate report for the abdomen. Skeletal structures show age-appropriate degenerative changes and no acute or focal abnormalities. CT/Chest WITH Contrast IMPRESSION: Markedly improved evidence of pulmonary malignancy and adenopathy since previous study. Underlying COPD. Electronically Signed: Cr Underwood MD at 19:56 EDT , Service support ,
== END ==
PROVIDERS: Family Provider Family Medicine; PCP Family Medicine; Referring Provider Internal Medicine Hematology & Oncology; Visit Provider Internal Medicine Hematology & Oncology
DX: C34.90 Malignant neoplasm of unspecified part of unspecified bronchus or lung (principal); C77.1 Secondary and unspecified malignant neoplasm of intrathoracic lymph nodes; C77.0 Secondary and unspecified malignant neoplasm of lymph nodes of head, face and neck; C78.00 Secondary malignant neoplasm of unspecified lung
CPT/HCPCS: 70491; 71260; 74160; Q9967

== ENCOUNTER → 2019-10-27 07:49 | Outpatient (CLI) | payer MEDICARE, SELFPAY ==
[2019-09-21 10:15] VITALS: BMI 28.6
[2019-10-11 10:18] VITALS: BMI 29.2
--- NOTE | 2019-10-27 07:50 | CT_ITS ---
STUDY: CT ABDOMEN WITH CONTRAST REASON FOR EXAM: Male, 74 years old. LUNG CA FOLLOWING 12 TREATMENTS RADIATION DOSAGE (If Supplied By Facility): CTDIvol = ( 19.09 ) mGy, DLP = ( 2053.22 ) mGycm TECHNIQUE: Transaxial images were obtained post I.V. administration of IV 100mL Isovue-300, and without oral contrast. Sagittal and coronal images were reconstructed. Individualized dose optimization techniques were used for this CT. COMPARISON: 06/23/2019. FINDINGS: No nodules are seen in the lung bases. Normal liver. Normal gallbladder and extrahepatic biliary system. Normal spleen. Normal pancreas. Normal bilateral adrenal glands. Normal right kidney. Normal left kidney. Stable bilateral renal cysts. Normal visualized stomach. Normal small intestine. There are multiple colonic diverticula consistent with diverticulosis. There is non-visualization of the appendix. There is diffuse atherosclerotic calcification of the abdominal aorta, without a demonstrated aneurysm. Normal inferior vena cava. Normal retroperitoneum. Normal abdominal wall. There are diffuse degenerative changes of the visualized lumbar spine. CT/Abdomen WITH IV Contrast IMPRESSION: No acute abnormalities. No evidence for metastatic disease. Electronically Signed: Cr Underwood MD at 17:42 EST , Service support ,
--- NOTE | 2019-10-27 07:50 | CT_ITS ---
STUDY: CT CHEST WITH CONTRAST REASON FOR EXAM: Male, 74 years old. Lung cancer status post treatment. RADIATION DOSAGE (If Supplied By Facility): CTDIvol = ( 19.09 ) mGy, DLP = ( 2053.22 ) mGycm TECHNIQUE: Transaxial imaging was performed following intravenous administration of IV 100mL Isovue-300. Individualized dose optimization techniques were used for this CT. COMPARISON: 06/23/2019. FINDINGS: Significant worsening of lung cancer since previous exam. As example, conglomerate soft tissue density in the left thoracic inlet contiguous with the left prevascular space is consistent with malignant adenopathy. Greatest dimension on coronal image 11 is approximately 6.3 cm, versus 5 cm previously. There is compression of the pulmonary trunk and left main pulmonary artery. Greatest cross-sectional dimension on axial image 50 is 7.2 cm versus 6.5 cm previously. A relatively spherical mass in the medial upper left anterior segment now measures approximately 3.6 cm versus 2.7 cm previously. Spiculated and lobulated mass in the anterior segment of the left upper lobe measures approximately 1.5 cm greatest dimension, stable. No other nodules. Right lung remains clear. Normal lung volumes. No effusions. Small left axillary lymph nodes are stable. Normal heart and pericardium. Normal aorta arch and descending thoracic aorta. Normal osseous structures. There is no demonstrated abnormality of the visualized upper abdomen. CT/Chest WITH Contrast IMPRESSION: Worsening of left mediastinal malignant adenopathy as specified above. Electronically Signed: Cr Underwood MD at 19:46 EST , Service support ,
--- NOTE | 2019-10-27 07:50 | CT_ITS ---
STUDY: CT SOFT TISSUE NECK WITH CONTRAST REASON FOR EXAM: Male, 74 years old. Follow-up lung cancer. Chemotherapy. RADIATION DOSAGE (If Supplied By Facility): CTDIvol = ( 19.09 ) mGy, DLP = ( 2053.22 ) mGycm TECHNIQUE: The patient was scanned in a multi-detector CT scanner. High resolution transaxial imaging was performed following intravenous administration of IV 100mL Isovue-300. Sagittal and coronal images were reconstructed. Individualized dose optimization techniques were used for this CT. COMPARISON: 06/23/2019. FINDINGS: Abnormal appearance of the left vocal cord suggestive of paralysis, and this represents a significant change since previous exam. No evidence for cervical adenopathy. Significant decreased abnormal soft tissue density in the upper right paratracheal region where there was a previous mass approximately 2.6 cm size, now there is only mild soft tissue thickening seen on axial image 19. Normal bilateral sublingual and submandibular glands and spaces. Normal visualized nasopharynx. Normal retropharyngeal space. Normal perivertebral space. Normal visualized bilateral faucial tonsils. The visualized tongue, tongue base and oropharynx are normal. The visualized cervical lymph nodes (levels I-) are within normal size limits, and maintain normal morphology. There is no abnormal contrast enhancement. Normal subglottic trachea. Normal bilateral lobes of the thyroid gland. See separate report for comments on the lung apices. Normal visualized paranasal sinuses. There is multilevel degenerative changes of the cervical spine. CT/Soft Tissue Neck WITH Contrast IMPRESSION: Significantly improved neoplastic tissue in the right thoracic inlet. No abnormal appearance of the vocal cords, suggest ENT examination. Electronically Signed: Cr Underwood MD at 17:50 EST , Service support ,
== END ==
PROVIDERS: Family Provider Family Medicine; PCP Family Medicine; Referring Provider Internal Medicine Hematology & Oncology; Visit Provider Internal Medicine Hematology & Oncology
DX: C34.90 Malignant neoplasm of unspecified part of unspecified bronchus or lung (principal)
CPT/HCPCS: 70491; 71260; 74160; Q9967

== ENCOUNTER 2019-11-09 08:33 | Day surgery (SDC) | payer MEDICARE, SELFPAY ==
--- NOTE | 2019-11-07 09:55 | HP_ITS ---
Intake Vital Signs 11/07/19 Height 5 ft 7 in 11/07/19 Weight: 187 lb 11/07/19 BMI 29.2 11/07/19 BP 132/81 H 11/07/19 Blood Pressure Location Rt brachial 11/07/19 Position Sitting 11/07/19 Respiration 16 11/07/19 Pulse 87 11/07/19 Pulse Source Monitor 11/07/19 Temp 98.5 F 11/07/19 Temp Source Oral 11/07/19 Pulse Oximetry (%) 99 11/07/19 Oxygen Delivery Method room air Intake Visit Reasons: PORT PLACEMENT Chief Complaint: Metastatic lung cancer on treatment Incendiaries Supervisor Required: No Is patient in pain?: No Allergies No Known Allergies Allergy (Verified 11/07/19 09:53) Medications Levothyroxine [Synthroid] 75 mcg PO QHS 10/24/16 [History Confirmed 11/07/19] Multivitamin [Multiple Vitamins] 1 ea PO DAILY 10/24/16 [History Confirmed 11/07/19] Omeprazole [Prilosec] 20 mg PO DAILY 10/24/16 [History Confirmed 11/07/19] Atorvastatin Calcium [Lipitor] 20 mg PO QHS 01/25/19 [History Confirmed 11/07/19] Ibuprofen [Motrin] 600 mg PO Q8H PRN PRN #30 tab 02/02/19 [Rx Confirmed 11/07/19] Acetaminophen [Tylenol Tablet] 650 mg PO Q4H PRN PRN tab 02/04/19 [Rx Confirmed 11/07/19] PFSH Medical History (Updated 11/07/19 @ 09:54 by Nick Warren MD) Primary lung cancer (Chronic) Surgical History (Updated 11/07/19 @ 09:48 by Latisha Welsh) Hx of lymph node biopsy (Acute) History of tonsillectomy and adenoidectomy (Acute) History of wisdom tooth extraction (Acute) Social History (Updated 11/07/19 @ 09:55 by Nick Warren MD) Smoking Status: Never smoker second hand exposure: No alcohol intake: never substance use type: does not use caffeine: Yes what type of physical activity do you participate in: none frequency: does not exercise HPI HPI HPI: RAJAN ROSEN, is a 74 M who presents to the office today for HPI HPI Surgical H&P: Yes HPI: RAJAN ROSEN, is a 74 M who presents to the office today for port placement. Patient is here for access for chemotherapy for lung cancer. Patient has been undergoing immunotherapy but his therapy is changing and he requires access. ROS General General: No weight change or fatigue Cardio Cardiovascular: No murmur, pacemaker, heart disease, atrial fibrillation, high blood pressure, heart attack, heart stent, palpitations, shortness of breat with exertion or chest pain Psych Psychiatric: No depression or anxiety Resp Respiratory: No shortness of breath, No sleep apnea, No cough, No COPD, No asthma, No emphysema, No wheezing Gastro Gastrointestinal: No abdominal pain, No nausea or vomiting, No diarrhea, No constipation, No blood in stool, No acid reflux, No hemorrhoids, No ulcers, No gallbladder problem, No black,tarry stools Emanuel Hematologic: No blood thinners Exam Const General: cooperative Orientation: alert, oriented x3 Resp Effort & Inspection: normal respiratory effort Auscultation: clear to auscultation bilaterally Cardio Rate: regular rate Rhythm: regular rhythm Heart Sounds: no murmurs GI Inspection: non-distended Palpation: soft, nontender Assessment & Plan Problems 1. Primary malignant neoplasm of lung, unspecified laterality C34.90 2. Encounter for insertion of venous access port Z45.2 Plan I discussed right chest port placement with the patient in detail. I discussed the risks including but not limited to bleeding, infection, pneumothorax, DVT, line infection. The patient agrees to undergo port placement and all questions were answered. Nick Warren MD Pager: [facility] [address] [place] [address], [address] [place] [address] Office: Coding Level of Care Code Off vis,new,level 3 Diagnoses Primary malignant neoplasm of lung, unspecified laterality C34.90 ??Laterality: unspecified laterality Encounter for insertion of venous access port Z45.2 11/07/19 0955 <Electronically signed by Nick vila MD> Date _ Nick Warren MD I have re-examined the patient. There are no clinical changes since date of exam.
[2019-11-07 10:38] VITALS: BMI 29.5
[2019-11-09 09:13] VITALS: BP 108/75; PULSE 87; RESP 16; TEMP 37.1; O2SAT 100; BMI 29.7
[2019-11-09] MEDS: Lactated Ringers 1,000 ML 100 ML IV (09:34)
[2019-11-09] MEDS: Cefazolin 2 GM in 0.9% Normal Saline 100 ML IV (09:57)
--- NOTE | 2019-11-09 10:01 | PCM.PN.BLA ---
Progress Note This is meant to be an addendum to the H&P The patient has had right neck surgery that was not noticed in the office. I discussed placing a left chest port today instead of right. I discussed that this would have less chance of running in the scar tissue and the patient agreed. The patient had a new consent form filled out and I will place a left chest port today. Nick Warren MD Pager: [facility] [place] [facility] [address] [place] [address], [address] [place] [address] Office: STROKE Vital Signs/Narrative: Vital Signs Temp Pulse Resp BP Pulse Ox 11/09/19 09:13 98.8 F 87 16 108/75 100
[2019-11-09] MEDS: Bupiv/Epi 0.5% Mpf 30 ML Vial (10:11)
--- NOTE | 2019-11-09 10:33 | RAD_ITS ---
STUDY: X-RAY CHEST REASON FOR EXAM: Male, 74 years old. POST PORT PLACEMENT TECHNIQUE: Single AP portable view of the chest. COMPARISON: Comparison is made with prior examination dated February 04, 2019. FINDINGS: A left-sided portacatheter has been placed. The tip is at the junction of the superior vena cava and right atrium. Minimally increased linear markings at the lung bases suggestive of the linear scarring. There is no demonstrated pleural abnormality. Normal size heart. Normal mediastinum and gumaro. Normal visualized pulmonary arteries. There is atherosclerotic calcification of the aortic arch with tortuosity. There are diffuse degenerative changes of the visualized thoracic spine. Normal visualized ribs, clavicles, and shoulders. There is no demonstrated abnormality of the visualized soft tissue structures of the upper abdomen. RAD/CXR for Line Placement IMPRESSION: The tip of the left judith catheter is at the junction of the superior vena cava and right atrium. Electronically Signed: Brayan Chaves, at 11:11 EST , Service support ,
[2019-11-09 10:37] VITALS: BP 108/75; BP 97/61; PULSE 85; RESP 16; TEMP 36.7; O2SAT 96
[2019-11-09 10:40] VITALS: BP 108/75; BP 98/65; PULSE 88; RESP 16; O2SAT 93
[2019-11-09 10:45] VITALS: BP 108/75; BP 111/73; PULSE 84; RESP 16; O2SAT 95
--- NOTE | 2019-11-09 10:46 | OP.PCM_ITS ---
Problem List (1) Encounter for adjustment and management of vascular access device Status: Acute Report of Operation Date of Procedure: 11/09/19 Pre-Operative Diagnosis: Lung cancer need for vascular access for chemotherapy Post-Operative Diagnosis: Same Surgery/Procedure Performed:: Ultrasound and fluoroscopy guided left chest port placement with utilization of left IJ Description of Procedure: After obtaining informed consent patient was brought back to the operating room MAC anesthesia was induced and the left chest and neck were prepped in normal sterile fashion. Ultrasound was used to evaluate both IJs and the left IJ was selected. Next, using a needle, the left IJ was accessed and a guidewire was passed on into the superior vena cava under fluoroscopy guidance. A small incision was made over the puncture site and the dilator introducer was placed over the guidewire. Next this was capped and the pocket was made for the port. 1% lidocaine with epinephrine was injected in the proposed port site. An incision was made with scalpel. Electrocautery was used to make a pocket under the skin and subcutaneous tissue. Hemostasis was obtained. Next, the catheter was tunneled up to the neck incision site and placed through the introducer. The peel-away introducer was removed and the position of the catheter was confirmed on fluoroscopy. Next, the catheter was trimmed and attached to the port with the locking device. Interrupted 2-0 Vicryl sutures were used to anchor the port to the chest wall and then the port was placed inside the pocket. The pocket was then flushed with saline and the port irrigated with saline. There was good blood return and the port flushed easily. Next, heparin was injected into the port. The skin was closed with subcutaneous interrupted 3-0 Vicryl sutures and interrupted skin 3-0 nylon sutures. A single 3-0 Vicryl sutures placed under the skin at the neck incision site. Steri-Strips were placed as well as op sites. Patient tolerated procedure well, was taken to PACU in stable condition. Chest x-ray will be obtained. Grafts/Implants Used: 8 [place] [employer]Port - Admit VTE Documentation VTE Mechan Device Prophylaxis: SCD's
--- NOTE | 2019-11-09 10:47 | DCINST_ITS ---
Discharge Diet: No Restrictions - Pain medication may cause nausea. You should typically eat light foods as you take your pain medication. Discharge Activity: Return to Normal Activity, May Shower - with your bandage in place in 1-2 days after surgery. DO NOT SHOWER WHEN YOUR PORT IS ACCESSED. Call your doctor if your incision/area has: Continuous Slow Oozing, Sudden Increased Bleeding, Increased Pain/ Swelling, Increased Redness Call your doctor if you observe: Fever of 101 or Higher Remove Dressing in (days):: 3 - When you remove the bandage, leave the steri- strips intact until they fall off. Allergies/Adverse Reactions: Allergies No Known Allergies Allergy (Verified 11/09/19 09:11) Medications to take at Discharge Levothyroxine [Synthroid] 75 mcg PO DAILY 10/24/16 Multivitamin [Multiple Vitamins] 1 ea PO DAILY 10/24/16 Omeprazole [Prilosec] 10 mg PO DAILY 10/24/16 Atorvastatin Calcium [Lipitor] 20 mg PO QHS 01/25/19 Ibuprofen [Motrin] 600 mg PO Q8H PRN PRN #30 tab 02/02/19 Acetaminophen [Tylenol Tablet] 650 mg PO Q4H PRN PRN tab 02/04/19 Dexamethasone [Decadron] 4 mg PO Q12H 21 Days #6 tab 11/07/19 Lidocaine/Prilocaine [Lidocaine-Prilocaine Cream] 1 applicatio TP DAILY PRN PRN 30 Days #1 tube 11/07/19 Ondansetron [Zofran] 8 mg PO Q8H PRN PRN 10 Days #30 tab 11/07/19 Primary Care Physician: Isrrael Zaldivar MD [Primary Care Provider] - Test Results: Test results from this visit will be discussed in further detail at your follow- up appointment, if applicable. Please Follow Up With: Nick Warren MD When: Please call to schedule 2 week follow up appointment. [phone]
[2019-11-09 10:50] VITALS: BP 104/79; BP 108/75; BP 127/81; PULSE 86; RESP 16; TEMP 36.9; O2SAT 96
[2019-11-09 11:59] VITALS: BP 108/75
== END 2019-11-09 12:01 | disposition home or self-care (01) ==
LOC: SDC 08:34 → AC 08:35
PROVIDERS: PCP Family Medicine; Referring Provider Surgery; Visit Provider Surgery
PROC: (CPT 36561; principal; 2019-11-09 09:15)
DX: Z45.2 Encounter for adjustment and management of vascular access device (principal); C34.90 Malignant neoplasm of unspecified part of unspecified bronchus or lung; I10 Essential (primary) hypertension; E07.9 Disorder of thyroid, unspecified; Z79.1 Long term (current) use of non-steroidal anti-inflammatories (NSAID); Z79.899 Other long term (current) drug therapy
CPT/HCPCS: 00532; 36561; 71045; 77001; C1788

== ENCOUNTER 2019-12-21 20:20 | Inpatient (IN) | payer MEDICARE, SELFPAY ==
[2019-12-19 09:08] VITALS: BMI 29.6
[2019-12-21 20:21] VITALS: BP 141/81; PULSE 97; RESP 18; TEMP 37.6; O2SAT 97; BMI 30.7
[2019-12-21 20:51] LABS: Bacteria 0 SEEN /hpf (None Seen); Mucous, Urine 0 SEEN /hpf (<or=2+); Red Blood Cells-Urine 0 SEEN /hpf (0-5); Squamous Epithelial Cells - UA 0 SEEN /hpf (0-5); White Blood Cells 0 SEEN /hpf (0-5)
[2019-12-21 20:56] LABS: Color, Urine Yellow (Yellow); Glucose, Dipstick Normal (Normal); Ketone-Dipstick Negative (Negative); Leukocyte Esterase-Dipstick Negative /ul (Negative); Nitrite-Dipstick Negative (Negative); Occult Blood-Urine 50 /ul (Negative); Protein-Dipstick Negative (Negative); Specific Gravity, Urine 1.005 (1.002-1.030); Urine Bilirubin Dipstick Negative (Negative); Urine Clarity Clear (Clear); Urine Urobilinogen Normal (Normal)
[2019-12-21] MEDS: 0.9% Normal Saline 1,000 ML 999 ML IV (21:11)
[2019-12-21 21:17] LABS: Absolute Lymphocyte Count 1.08 X10^3/uL (0.83-4.51); Basophil% 0.6 % (0-1); Eosinophil# 0.28 X10^3/uL; Eosinophils% 1.6 % (0-5); Hemoglobin 12.3 g/dL (13.0-16.5); Lymphocyte # 1.08 X10^3/ul (4.0); Lymphocyte % 6.3 % (19-41); Mean Corp Hgb Conc 32.4 g/dL (32-36); Mean Corpuscular Hgb 29.1 pg (27.0-32.0); Mean Platelet Vol. 8.6 fl (6.2-12.0); Monocyte# 1.47 X10^3/uL; Monocyte% 8.5 % (0-10); NRBC Flagged by Analyzer 0 % (0-5); Neutrophil # 13.99 X10^3/uL (2.7-7.7); Platelet Count 150 K/mm3 (150-450); RBC Distribution Width CV 16.6 % (11.6-14.6); RBC Distribution Width SD 53.5 fl (35.1-43.9); Red Blood Count 4.22 M/mm3 (4.6-6.2); White Blood Count 17.3 K/mm3 (4.4-11.0)
[2019-12-21 21:19] VITALS: O2SAT 97
[2019-12-21 21:24] LABS: International Normalized Ratio 1.1; Prothrombin Time (Protime)PT. 13.7 SECONDS (11.7-14.9)
--- NOTE | 2019-12-21 21:25 | RAD_ITS ---
STUDY: X-RAY CHEST REASON FOR EXAM: Male, 74 years old. Neutropenic fever TECHNIQUE: Frontal and lateral views of the chest COMPARISON: 02/04/2019 FINDINGS: There is a left-sided port with its tip in the superior vena cava. The lungs are clear. There are no pleural effusions. There is no pneumothorax. The heart is normal in size. The visualized osseous structures are within normal limits. RAD/Chest PA and Lateral IMPRESSION: No acute thoracic pathology. Electronically Signed: Rashid Saldivar, at 21:40 EDT Tel , Service support ,
[2019-12-21 21:26] LABS: Partial Thromboplast Time 34.4 Seconds (24.1-36.2)
[2019-12-21 21:39] VITALS: BP 154/82; PULSE 90; RESP 17; TEMP 37.1; O2SAT 96
[2019-12-21 21:50] LABS: ALB/GLOB Ratio 0.7 RATIO (0.9-2.4); AST(SGOT) 37 U/L (15-37); Alanine Aminotransfer ALT/SGPT 47 U/L (16-61); Albumin, Serum 2.9 g/dL (3.2-5.0); Alkaline Phosphatase 180 U/L (45-117); Anion Gap 4 (5-15); BUN 18 mg/dL (7-18); BUN/Creat Ratio 13.6 RATIO (10-20); Chloride 103 mmol/L (98-107); Creatinine, Serum 1.32 mg/dL (0.70-1.30); EST Glomerular Filtration Rate 56 mL/min (>60); Est Glom Filt Rate - Afr Amer 68 mL/min (>60); Estimated Creatinine Clearance 44.31 ml/min; Globulin 4.1 g/dL (2.2-4.2); Glucose 123 mg/dL (74-106); Magnesium 2.1 mg/dL (1.6-2.6); Phosphorus 2.5 mg/dL (2.5-4.9); Potassium 4.1 mmol/L (3.5-5.1); Sodium Level 136 mmol/L (136-145)
[2019-12-21 21:53] LABS: Lactic Acid 1.3 mmol/L (0.4-1.9)
[2019-12-21 22:21] VITALS: BP 172/98; PULSE 87; RESP 22; O2SAT 98
--- NOTE | 2019-12-21 23:18 | PCM.HP.STD ---
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 (4) Primary lung cancer Status: Chronic Qualifiers: Laterality: unspecified laterality Qualified Code(s): C34.90 - Malignant neoplasm of unspecified part of unspecified bronchus or lung (5) Non-small cell carcinoma of lung Status: Chronic Qualifiers: Laterality: unspecified laterality Qualified Code(s): C34.90 - Malignant neoplasm of unspecified part of unspecified bronchus or lung (6) HTN (hypertension) Status: Chronic Qualifiers: Hypertension type: essential hypertension Qualified Code(s): I10 - Essential (primary) hypertension (7) HLD (hyperlipidemia) Status: Chronic Qualifiers: Hyperlipidemia type: unspecified Qualified Code(s): E78.5 - Hyperlipidemia, unspecified (8) Hypothyroidism Status: Chronic Qualifiers: Hypothyroidism type: unspecified Qualified Code(s): E03.9 - Hypothyroidism, unspecified (9) Anemia Status: Chronic Qualifiers: Anemia type: unspecified type Qualified Code(s): D64.9 - Anemia, unspecified History of Present Illness Date of Admission: 12/21/19 Chief Complaint: Fever, recent chemotherapy The patient is a 74 y/o M w/ PMHx: AOCD, Hypothyroidism, HTN, HLD, Lung cancer (non-small cell carcinoma) with metastatic disease to the mediastinal and cervical lymph nodes following with Dr. Alexa rose who presents to the [facility] ED on 12/21/19 with history of of onset fever 100.4 at home with fatigue, malaise, diaphoresis prompting referral to ED for evaluation. He states that he is very careful about interactions and activities on the community secondary to ongoing chemotherapy especially with recent events. He denies any history of redness or erythema around the region of the ports on the left chest. Work-up in the ED included T 99.7, heart 97, BP 141/81, respiratory rate 18, 97% on room air, CBC with WC seven-point 0.3, hemoglobin 12.3, platelet 150 with left shift, unremarkable coags, CMP with BUN/creatinine 18/1.32, glucose 123, lactic acid 1.3, alk phos 180, mag 2.1, Phos 2.5, urinalysis unremarkable, x-ray with no acute cardiopulmonary findings, Bld Cx x 2 pending per ED and UCx pending per ED. In the ED patient administered IV vancomycin, NS. Past Medical History Past Medical History (Chronic Problems): Chronic Problems (Last Reviewed 12/19/19 @ 09:06 by Jazmyn Muñoz) Metastasis to mediastinal lymph node (Chronic) Metastasis to cervical lymph node (Chronic) Lung metastases (Chronic) Primary lung cancer (Chronic) Non-small cell carcinoma of lung (Chronic) HTN (hypertension) (Chronic) HLD (hyperlipidemia) (Chronic) Hypothyroidism (Chronic) Anemia (Chronic) Medical History: Medical History (Last Reviewed 12/19/19 @ 09:06 by Jazmyn Muñoz) Immunotherapy encounter (Acute) Z29.8 Metastasis to mediastinal lymph node (Chronic) C77.1 Metastasis to cervical lymph node (Chronic) C77.0 Lung metastases (Chronic) C78.00 Primary lung cancer (Chronic) C34.90 Pneumothorax, left (Resolved) J93.9 Non-small cell carcinoma of lung (Chronic) C34.90 HTN (hypertension) (Chronic) I10 HLD (hyperlipidemia) (Chronic) E78.5 Hypothyroidism (Chronic) E03.9 Encounter for education (Acute) Z71.9 Localized swelling, mass and lump, neck (Acute) R22.1 Anemia (Chronic) D64.9 port placement 11-09-19 Allergies No Known Allergies Allergy (Verified 12/21/19 20:21) Home Medications: Ambulatory Orders Medication Instructions Recorded Levothyroxine [Synthroid] 125 mcg PO DAILY 10/24/16 Multivitamin [Multiple Vitamins] 1 ea PO DAILY 10/24/16 Omeprazole [Prilosec] 10 mg PO DAILY 10/24/16 Atorvastatin Calcium [Lipitor] 20 mg PO QHS 01/25/19 Acetaminophen [Tylenol Tablet] 650 mg PO Q4H PRN PRN tab 02/04/19 Folic Acid 800 mcg PO DAILY 11/16/19 Dexamethasone [Decadron] 4 mg PO Q12H 12/22/19 Surgical History: Surgical History (Last Reviewed 12/19/19 @ 09:06 by Jazmyn Muñoz) Hx of lymph node biopsy (Acute) Z98.890 Open biopsy of the deep cervical lymph node / Right neck- 02/03/2019 History of tonsillectomy and adenoidectomy (Acute) Z98.890 History of wisdom tooth extraction (Acute) K08.409 Surgical History: - - Cervical lymph node biopsy, tonsillectomy, wisdom tooth extraction, port placement. Psychiatric History: No pertinent psych hx Lives: Spouse/ Significant Other Smoking Status: Never smoker Tobacco Use: Non-smoker Alcohol: None Drugs: None - *Family History Maternal Family History: Family History (Last Reviewed 12/19/19 @ 09:06 by Jazmyn Muñoz) Uncle Cancer Mother CVA (cerebral vascular accident) History Items: Hypertension Paternal Family History: Family History (Last Reviewed 12/19/19 @ 09:06 by Jazmyn Muñoz) Uncle Cancer Mother CVA (cerebral vascular accident) History Items: - - Patient denies any market maternal family history including heart disease, diabetes or cancer. Review of Systems Constitutional: Reports: Fever, Malaise, Weakness, Fatigue. Denies: Anorexia, Chills, Weight Change HEENT: Denies: Head Aches, Sinus Congestion, Sinus Drainage Cardiovascular: Denies: Chest Pain, Palpitations Respiratory: Denies: Cough, Shortness of Breath, Shortness of breath at rest, Sputum production Gastrointestinal: Denies: Abdominal Pain, Nausea, Vomiting Genitourinary: Denies: Dysuria Musculoskeletal: Denies: Joint Pain, Joint Tenderness Skin: Denies: Rash, Skin Changes, Wounds Neurological: Denies: Numbness, Tingling, Focal weakness Psychiatric: Denies: Anxiety, Depression, Homicidal Ideations, Suicidal Ideations Hematologic/ Lymphatic: Reports: Anemia. Denies: Easy Bruising, Easy Bleeding VTE Information - Inpt Only VTE Present on Admission: No VTE Mechan Device Prophylaxis: SCD's VTE Pharm Prophylaxis ordered?: Yes Patient Problems: Active and Suspected Problems (Last Reviewed 12/19/19 @ 09:06 by Jazmyn Muñoz) Hoarseness of voice (Acute) Rash (Acute) Bacteremia (Acute) Immunotherapy encounter (Acute) Encounter for education (Acute) Subjective: Seated upright in ED bed, fatigued appearance, no acute distress. Objective: Physical Examination: General: awake, alert, oriented x 3 and cooperative, seated upright in ED bed in no apparent distress. Skin: normal color, turgor, no icterus, cyanosis. HEENT: AT/NC, EOMI, PERRLA, moderately dry MM, no carotid bruits or JVD noted. Lungs: CTA bilaterally, moderate effort, moderate decrease BL bases, no rales, ronchi or wheezing. Heart: Regular rate and rhythm; no gallop, rub audible, left chest port in place with no obvious erythema. Abdomen: soft, obese, NTTP, ND, normal BS, no HSM. Extremities: no cyanosis, clubbing, or edema. Neurological: patient awake, alert, oriented x 3; cognitive function appears baseline intact; pupils equally reactive to light and accomodation; cranial nerves II-XII grossly normal, moving all 4 extremities, no focal deficits, strength moderately globally Comfort secondary to acute presentation. Psychiatric: affect appears fatigued, no acute evidence of depressive or anxiety feelings. - Physical Exam Vitals/I&O's: Vital Signs Temp Pulse Resp BP Pulse Ox 98.7 F 87 22 H 172/98 H 98 12/21/19 21:39 12/21/19 22:21 12/21/19 22:21 12/21/19 22:21 12/21/19 22:21 Oxygen Delivery Method Room Air Weight: 190 lb 4.143 oz Body Mass Index (BMI) 30.7 Laboratory Results 12/21/19 20:41: Urine Color Yellow, Urine Clarity Clear, Urine pH 7.0, Ur Specific [place] 1.005, Urine Protein Negative, Urine Glucose (UA) Normal, Urine Ketones Negative, Urine Occult Blood 50 H, Urine Nitrite Negative, Urine Bilirubin Negative, Urine Urobilinogen Normal, Ur Leukocyte Esterase Negative, Urine RBC 0 SEEN, Urine WBC 0 SEEN, Ur Squamous Epith Cells 0 SEEN, Urine Bacteria 0 SEEN, Urine Mucus 0 SEEN 12/21/19 21:02: WBC 17.3 H, RBC 4.22 L, Hgb 12.3 L, Hct 38.0 L, MCV 90.0, MCH 29.1, MCHC 32.4, RDW Std Deviation 53.5 H, RDW Coeff of Gino 16.6 H, Plt Count 150, MPV 8.6, Immature Gran % (Auto) 2.000 H, Neut % (Auto) 81.0 H, Lymph % (Auto) 6.3 L, Brooks % (Auto) 8.5, Eos % (Auto) 1.6, Baso % (Auto) 0.6, Absolute Neuts (auto) 14.0 H, Absolute Lymphs (auto) 1.08, Nucleated RBC % 0 03/11/20 21:02: PT 13.7, INR 1.1, APTT 34.4 12/21/19 21:02: Sodium 136, Potassium 4.1, Chloride 103, Carbon Dioxide 29.0, Anion Gap 4 L, BUN 18, Creatinine 1.32 H, Estim Creat Clear Calc 44.31, Est GFR (MDRD) Af Amer 68, Est GFR (MDRD) Non-Af 56 L, BUN/Creatinine Ratio 13.6, Glucose 123 H, Calcium 8.0 L, Phosphorus 2.5, Magnesium 2.1, Total Bilirubin 0.60, AST 37, ALT 47, Alkaline Phosphatase 180 H, Total Protein 7.0, Albumin 2.9 L, Globulin 4.1, Albumin/Globulin Ratio 0.7 L 12/21/19 21:02: Lactic Acid 1.3 Current Medications Sodium Chloride () 1,000 mls @ 50 mls/hr IV .Q20H RAUL Vancomycin HCl 1,250 mg/ (Sodium Chloride) 275 mls @ 250 mls/hr IV X1 ONE Stop: 12/22/19 00:10 Assessment/Plan All Active Problems (Last Reviewed 12/19/19 @ 09:06 by Jazmyn Muñoz) Encounter for adjustment and management of vascular access device (Acute) Hoarseness of voice (Acute) Rash (Acute) Bacteremia (Acute) Hx of lymph node biopsy (Acute) History of tonsillectomy and adenoidectomy (Acute) History of wisdom tooth extraction (Acute) Immunotherapy encounter (Acute) Pneumothorax, left (Resolved) Encounter for education (Acute) Localized swelling, mass and lump, neck (Acute) The patient is a 74 y/o M w/ PMHx: AOCD, Hypothyroidism, HTN, HLD, Lung cancer (non-small cell carcinoma) with metastatic disease to the mediastinal and cervical lymph nodes following with Dr. Liu treatment who presents to the [facility] ED on 12/21/19 with history of of onset fever 100.4 at home with fatigue, malaise, diaphoresis prompting referral to ED for evaluation. 1. Febrile secondary to Acute Bacteremia (GPC, preliminary from gram stain) with Recent Chemotherapy with Metastatic Lung CA (noted #2), not Neutropenic: Given recent complaints concern for underlying infectious etiology while immunosuppressed on chemotherapy, WBC elevation although difficult assessment as noted chronic elevations, will admit to medical surgical floor, closely monitor, gently hydrate, magnesium and phosphorus already obtained and noted to be normal, maintain on broad-spectrum antibiotic therapy with IV meropenem pending blood cultures, urine cultures. 2. Lung cancer (non-small cell carcinoma) with metastatic disease: Patient with metastatic disease per records to the mediastinal and cervical lymph nodes following with Dr. Liu treatment with Keytruda initially with partial remission initially then progression in the chest 10/2019 with transition to Carboplatin Alimta Avastin November 16, 2019 with planned 4-6 cycles, collagen consulted given acute presentation as noted. 3. 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 4. Chronic normocytic anemia, AOCD: Admission Hgb 12.3, stable, associated w/ his chemotherapy as noted, trend. 5. Hypertension: BP mildly above goal but off of regimen, will continue to monitor and add oral regimen if appropriate, PRN IV hydralazine in interim. 6. Hyperlipidemia: We will continue patient home atorvastatin. 7. Hypothyroidism: Continue home synthroid regimen. 8. GERD: We will maintain on patient home PPI. 9. DVT Prophylaxis: SCDs, lovenox. 10. CODE status: Patient YOUNG is his who is present and living will is currently in place. Discussed CODE status at length including difference between FULL code, DNR-CCA and DNR-CC status. Following discussions about the differences in these status, requested Full Code status. He and his are discussions have never discussed specifically CODE STATUS and encouraged them to continue to do so specially as their age and comorbidity/disease history changes. Advanced Care Planning Face to Face Time: 16 minutes. Inpatient E&M: 71098 Init Hosp L3 Procedures: 64325 Advncd Care Plan 30 Min
[2019-12-21] MEDS: 0.9% Normal Saline 1,000 ML 50 ML IV (23:32)
[2019-12-21 23:36] VITALS: BP 151/84; PULSE 93; RESP 16; TEMP 37; O2SAT 96
[2019-12-22] VITALS (10 sets, daily range): BP systolic 134–179; BP diastolic 76–103; PULSE 91–99; RESP 16–18; TEMP 36.7–37.4; O2SAT 94–98; BMI 30.3; BMI 30.4
--- NOTE | 2019-12-22 00:27 | ED.VISSUMM ---
- ER Visit Summary Date of Service: 12/22/19 Chief Complaint: Fever History of Present Illness: The patient is a [address] Zaldivar and Dr. Liu. He has lung cancer and his most recent dose of chemo was 2 weeks ago. He has a Neulasta patch in place. He states he was doing well until he developed a fever today. Is also had sweats. He denies any sore throat or cough. No ear pain. No chest pain or trouble breathing. No abdominal pain, nausea, vomiting, or diarrhea. No dysuria frequency. No rash, headache, numbness, weakness, or other complaints. Physical Examination: Vitals: Stable. Afebrile. General: Well-nourished and well-developed. Head: Normocephalic atraumatic. Neck: Supple, no lymphadenopathy. No JVD. Nontender. Cardiovascular: Regular rate and rhythm. No murmurs. Respiratory: No respiratory distress. Clear to auscultation bilaterally. Abdominal: Soft, nontender, nondistended, normal bowel sounds. No guarding, rebound, or peritoneal signs. Back: Nontender. Extremities: Nontender, no edema. Skin: Normal color, no rash. Neurologic: Alert and oriented ?3. Cranial nerves II through XII are intact. Normal strength and sensation. Psych: Normal affect. Test Results: CBC shows a white count of 17.3 with 81 segmented neutrophils and 6 lymphocytes. Immature granulocytes of 2%. H&H of 12.3 and 30.0. 7 shows a calcium of 8.0, glucose 123, creatinine 1.32. Last creatinine was 1.21. LFTs show an albumin of 2.9 and alk phos of 180. Coags are normal. UA is negative. Lactic acid is 1.3. Chest x-ray shows no acute disease. Emergency Department Course and Treatment: Patient is resting comfortably. The lab called and said the Gram stain from his blood culture grew gram-positive cocci in clusters. This is most likely staph and the patient was given vancomycin IV. Treatment Plan: Patient was discussed with the oncologist as well as with Dr. Griffin. He will be admitted the hospital for further evaluation and treatment. Disposition: Admitted in improved condition. Impression: 1. Fever. 2. Bacteremia. This note was generated with [employer] software. It may contain incorrect words, spelling, and punctuation that were not noted in review of the chart prior to signing ED Disposition - Plan for ED Patient: Disposition: Acute Care Hospital [facility]
--- NOTE | 2019-12-22 01:26 | PCM.RX.CS ---
Consult Pharmacy has been consulted to manage selected antiobiotic: Vancomycin Type of Consult: New start Suspected Infection: Bacteremia Labs: Sodium 136 mmol/L (136-145) 12/21/19 21:02 Potassium 4.1 mmol/L (3.5-5.1) 12/21/19 21:02 Chloride 103 mmol/L (98-107) 12/21/19 21:02 Carbon Dioxide 29.0 mmol/L (21.0-32.0) 12/21/19 21:02 Anion Gap 4 (5-15) L 12/21/19 21:02 BUN 18 mg/dL (7-18) 12/21/19 21:02 Creatinine 1.32 mg/dL (0.70-1.30) H 12/21/19 21:02 Est GFR (MDRD) Af Amer 68 mL/min (>60) 12/21/19 21:02 Est GFR (MDRD) Non-Af 56 mL/min (>60) L 12/21/19 21:02 BUN/Creatinine Ratio 13.6 RATIO (-20) 12/21/19 21:02 Glucose 123 mg/dL (74-106) H 12/21/19 21:02 Weight used for dosin.3 kg Estimated Creatinine Clearance: 50.28 Goal Trough: 15-20 mcg/mL Pharmacy Plan for Drug Dosing: Pharmacy Service will continue to monitor and adjust dosing as required. Medications Vancomycin HCl 750 mg/ Sodium (Chloride) 265 mls @ 250 mls/hr IV Q12H RAUL Discontinued Medications Vancomycin HCl 1,250 mg/ (Sodium Chloride) 275 mls @ 250 mls/hr IV X1 ONE Stop: 12/22/19 00:10 Last Admin: 12/22/19 00:50 Dose: Infused Documented by: Follow-Up Labs: Trough Vancomycin Labs to be done on [date and time ordered]: 12/22 @ 8011
[2019-12-22] MEDS: Levothyroxine 125 MCG Tablet PO (05:12)
[2019-12-22] MEDS: 0.9% Normal Saline 1,000 ML 100 ML IV ×2 (05:12→16:15)
[2019-12-22] MEDS: hydrALAZINE 20 MG/ML Vial 10 MG IV ×2 (06:18→16:24)
[2019-12-22 06:28] LABS: Absolute Lymphocyte Count 0.96 X10^3/uL (0.83-4.51); Absolute Neutrophil Count 12.8 X10^3/uL (2.0-7.7); Basophil% 0.6 % (0-1); Eosinophil# 0.27 X10^3/uL; Eosinophils% 1.7 % (0-5); Hematocrit 38.7 % (40-54); Hemoglobin 12.6 g/dL (13.0-16.5); Lymphocyte # 0.96 X10^3/ul (4.0); Lymphocyte % 6.1 % (19-41); Mean Corp Hgb Conc 32.6 g/dL (32-36); Mean Corpuscular Hgb 29.2 pg (27.0-32.0); Mean Corpuscular Volume 89.6 fL (80-94); Mean Platelet Vol. 8.6 fl (6.2-12.0); Monocyte# 1.39 X10^3/uL; Monocyte% 8.8 % (0-10); NRBC Flagged by Analyzer 0 % (0-5); Neutrophil # 12.83 X10^3/uL (2.7-7.7); Neutrophil % 80.9 % (47-70); Platelet Count 150 K/mm3 (150-450); RBC Distribution Width CV 16.5 % (11.6-14.6); RBC Distribution Width SD 53.1 fl (35.1-43.9); Red Blood Count 4.32 M/mm3 (4.6-6.2); White Blood Count 15.9 K/mm3 (4.4-11.0)
[2019-12-22 06:52] LABS: Anion Gap 7 (5-15); BUN 12 mg/dL (7-18); BUN/Creat Ratio 12.5 RATIO (10-20); Calcium,Total 7.8 mg/dL (8.5-10.1); Chloride 104 mmol/L (98-107); Creatinine, Serum 0.96 mg/dL (0.70-1.30); EST Glomerular Filtration Rate 81 mL/min (>60); Est Glom Filt Rate - Afr Amer 98 mL/min (>60); Estimated Creatinine Clearance 60.92 ml/min; Glucose 119 mg/dL (74-106); Potassium 3.9 mmol/L (3.5-5.1); Sodium Level 137 mmol/L (136-145)
[2019-12-22] MEDS: Pantoprazole Sodium 20 MG Tablet PO (08:29)
[2019-12-22] MEDS: Folic Acid 1 MG Tablet PO (08:29)
[2019-12-22] MEDS: Enoxaparin 40 MG/0.4 ML Syringe SC (08:30)
--- NOTE | 2019-12-22 09:44 | CASEMGMT ---
Social Work Note Per android ios developer questions, pt has completed HCPOA and LW but hasn't provided copy to [facility]. Keara Gtz EXECUTIVE COMPENSATION ANALYST, ASSISTANT MANAGER QUALITY MANAGEMENT
--- NOTE | 2019-12-22 10:34 | CASEMGMT ---
Social Work Note SW reviewed chart, pt has history of lung cancer with metastatic disease. SW completed Palliative Care Tool, pt scored 3. SW met with pt and pt's Genie present in room. Pt gave this worker permission to speak to him in front of his guest. SW provided support to pt regarding diagnosis. Pt states that he is overall doing well and has a good support system. Pt states that his is really supportive of him. SW educated pt and Genie on Palliative Care and provided brochure. Pt took brochure, states he will review. Pt denied Palliative Care referral at this time. Keara Gtz ACCESS DIRECTOR, ADVANCED MANUFACTURING CONSULTANT
--- NOTE | 2019-12-22 12:03 | CASEMGMT ---
RN CM Assessment Note Presentation: Fever Intro role of CM and purpose of RN CM assessment.to patient and his . Pt is awake, alert Demographics, PCP and Pharmacy verified. Pt states he is independent at home, no DME use does not require assistance. agreed. Pt appeared to be in good spirits, voiced no concerns. RN CM asked if he or had concerns re: dc and both stated no. PCP: Dr. Zaldivar Specialists: Dr. Liu Preferred Pharmacy: [facility] Insurance: [employer] Prescription Benefit: yes LNOK : , Genie Reyna Living Arrangements: Lives independently with . No concerns. Transportation: drives DME: none HHC: none Patient DC goals: Home DC PLAN: Home. No needs identified @ this time. RN CM advised to contact cm for any concerns/needs that may arise. Martina TREJON RN ACM
--- NOTE | 2019-12-22 16:02 | CHAPLAIN ---
patient was sleeping; a 'do not disturb' sign was placed on door
[2019-12-22] MEDS: Acetaminophen 325 MG Tablet 650 MG PO (16:23)
--- NOTE | 2019-12-22 18:33 | ECHOCS_ITS ---
Reason For Study: MURMUR Procedure This was a 2D Doppler, Color Flow transthoracic echocardiogram. Exam performed portable in patient room. Left Ventricle Normal LV size. The estimated ejection fraction is 60 %. Normal diastology for age. No regional wall motion abnormalities noted. Right Ventricle Normal RV size. Normal systolic function. Atria Normal left atrium. Normal right atrium. No doppler evidence for ASD. Mitral Valve There is moderate mitral annular calcification. There is no mitral valve stenosis. Trivial mitral valve insufficiency. Tricuspid Valve There is no tricuspid stenosis. Trivial tricuspid valve insufficiency. Pulmonary artery systolic pressure is 25 mmHg. Aortic Valve Trisinus/trileaflet aortic valve. Moderate focal aortic valve thickening. Mild aortic stenosis. No aortic valve insufficiency. Pulmonic Valve There is no pulmonic valvular stenosis. No pulmonic valve insufficiency. Great Vessels Normal aortic root. Pericardium/Pleural No pericardial effusion. Medication Diluted definity 3.0ml given slow IV push to enhance endocardial definition. MMode/2D Measurements & Calculations LVIDd: 4.2 cm IVSd: 1.1 cm LVOT diam: 2.0 cm LVIDs: 2.8 cm LVPWd: 1.2 cm RVDd: 3.6 cm FS: 33.9 % LVOT area: 3.1 cm2 Ao root diam: 3.1 cm LAV(MOD-bp): 50.9 ml LVAd ap4: 34.8 cm2 LAV(MOD-bp) Indexed: 26.2 ml/m2 EDV(MOD-sp4): 118.1 ml LAV(MOD-sp2): 66.3 ml EDV(sp4-el): 121.0 ml LAV(MOD-sp4): 39.6 ml LVAs ap4: 20.3 cm2 ESV(MOD-sp4): 52.2 ml ESV(sp4-el): 54.3 ml EF(MOD-sp4): 55.8 % EF(sp4-el): 55.2 % SV(MOD-sp4): 65.9 ml SV(sp4-el): 66.7 ml Aortic Valve Planimetry: 1.5 cm2 LA A4 area: 15.9 cm2 LA dimension(2D): 4.0 cm RA A4 area: 12.2 cm2 Time Measurements MV dec time: 0.20 sec Doppler Measurements & Calculations MV E max tremayne: 106.6 cm/sec Lat Peak E' Tremayne: 10.7 cm/sec Med Peak E' Tremayne: 7.2 cm/sec MV A max tremayne: 116.1 cm/sec E/E' lat: 10.0 E/E' med: 14.8 MV E/A: 0.92 MV V2 max: 129.1 cm/sec Ao V2 max: 211.9 cm/sec LV V1 max: 96.2 cm/sec MV max P.7 mmHg Ao max P.0 mmHg LV V1 max P.7 mmHg MV V2 mean: 88.9 cm/sec Ao V2 mean: 157.7 cm/sec LV V1 mean P.0 mmHg MV mean P.5 mmHg Ao mean P.7 mmHg LV V1 mean: 67.0 cm/sec MV V2 VTI: 28.4 cm Ao V2 VTI: 41.9 cm LV V1 VTI: 18.4 cm MVA(VTI): 2.0 cm2 PRETTY(I,D): 1.4 cm2 PRETTY(V,D): 1.4 cm2 SV(LVOT): 58.0 ml MV P1/2t-pr_phl: 56.2 msec Interpretation Summary The estimated ejection fraction is 60 %. Normal diastology for age. Trivial mitral valve insufficiency. Trivial tricuspid valve insufficiency. Moderate focal aortic valve thickening. Mild aortic stenosis. There is moderate mitral annular calcification. The study was technically difficult. Contrast injection was performed. Ordering Physician: Danis Wilder Referring Physician: TIEN RODRIGUEZ Performed By: Roxane Dennis, JANIECS, RVT
--- NOTE | 2019-12-22 18:37 | PCM.PROGNOTE ---
Patient Problems: Active and Suspected Problems (Last Reviewed 12/19/19 @ 09:06 by Jazmyn Muñoz) Bacteremia (Acute) Subjective: Patient was seen and examined today, his white blood cell count this morning was 15.9, patient does not complain of any chills or subjective fever. Patient's T-max today so far is 99.3. - Physical Exam Vitals/I&O's: Vital Signs Temp Pulse Resp BP Pulse Ox 98.1 F 91 16 179/94 H 98 12/22/19 16:00 12/22/19 16:24 12/22/19 16:00 12/22/19 16:24 12/22/19 16:00 Oxygen Delivery Method Room Air Weight: 85.3 kg Body Mass Index (BMI) 30.3 Intake and Output for Last 24 Hours 12/20/19 12/21/19 12/22/19 23:59 23:59 23:59 Intake Total 1000 / 1000 2038.33 / 2038.33 Output Total 1775 / 1775 Balance 1000 / 1000 263.33 / 263.33 General: Alert, Oriented x3, Cooperative, No apparent distress, Well developed, Well nourished HEENT: Atraumatic, PERRLA, EOMI, Normocephalic Oral: Moist Mucosa Neck: Supple, No JVD, Negative Carotid Bruits, Trachea Midline, Thyroid Normal Size and Texture Lungs: Clear to auscultation, Normal air movement, No rhonchi, No wheeze, Rales - Inspiratory rales are noted over the right lower lung field Cardiovascular: Regular rate, Regular Rhythm, Normal S1, Normal S2, Murmur - 2/6 systolic murmur is noted at the apex Abdomen: Bowel Sounds Present, Soft, Non Tender, Non-Distended Extremities: No clubbing, No cyanosis, No edema, Capillary Refill Less than 3 Seconds Skin: No rashes, No breakdown Musculoskeletal: No Tenderness to Palpation of Joints or Extremities Neurological: Cranial nerves II-XII grossly intact, Neuro grossly intact, Muscle tone normal, Sensory exam intact to light touch and pain Psych/Mental Status: Normal Affect, Appropriate, Alert and oriented to time, place, person, mood and affect Microbiology Past 72 Hours 12/21/19 21:15 Blood Culture (Wb) - Right Hand Blood Culture - Preliminary Laboratory Results 12/21/19 20:41: Urine Color Yellow, Urine Clarity Clear, Urine pH 7.0, Ur Specific [place] 1.005, Urine Protein Negative, Urine Glucose (UA) Normal, Urine Ketones Negative, Urine Occult Blood 50 H, Urine Nitrite Negative, Urine Bilirubin Negative, Urine Urobilinogen Normal, Ur Leukocyte Esterase Negative, Urine RBC 0 SEEN, Urine WBC 0 SEEN, Ur Squamous Epith Cells 0 SEEN, Urine Bacteria 0 SEEN, Urine Mucus 0 SEEN 12/21/19 21:02: WBC 17.3 H, RBC 4.22 L, Hgb 12.3 L, Hct 38.0 L, MCV 90.0, MCH 29.1, MCHC 32.4, RDW Std Deviation 53.5 H, RDW Coeff of Gino 16.6 H, Plt Count 150, MPV 8.6, Immature Gran % (Auto) 2.000 H, Neut % (Auto) 81.0 H, Lymph % (Auto) 6.3 L, [place] % (Auto) 8.5, Eos % (Auto) 1.6, Baso % (Auto) 0.6, Absolute Neuts (auto) 14.0 H, Absolute Lymphs (auto) 1.08, Nucleated RBC % 0 12/21/19 21:02: PT 13.7, INR 1.1, APTT 34.4 12/21/19 21:02: Sodium 136, Potassium 4.1, Chloride 103, Carbon Dioxide 29.0, Anion Gap 4 L, BUN 18, Creatinine 1.32 H, Estim Creat Clear Calc 44.31, Est GFR (MDRD) Af Amer 68, Est GFR (MDRD) Non-Af 56 L, BUN/Creatinine Ratio 13.6, Glucose 123 H, Calcium 8.0 L, Phosphorus 2.5, Magnesium 2.1, Total Bilirubin 0.60, AST 37, ALT 47, Alkaline Phosphatase 180 H, Total Protein 7.0, Albumin 2.9 L, Globulin 4.1, Albumin/Globulin Ratio 0.7 L 12/21/19 21:02: Lactic Acid 1.3 12/22/19 06:15: WBC 15.9 H, RBC 4.32 L, Hgb 12.6 L, Hct 38.7 L, MCV 89.6, MCH 29.2, MCHC 32.6, RDW Std Deviation 53.1 H, RDW Coeff of Gino 16.5 H, Plt Count 150, MPV 8.6, Immature Gran % (Auto) 1.900 H, Neut % (Auto) 80.9 H, Lymph % (Auto) 6.1 L, [place] % (Auto) 8.8, Eos % (Auto) 1.7, Baso % (Auto) 0.6, Absolute Neuts (auto) 12.8 H, Absolute Lymphs (auto) 0.96, Nucleated RBC % 0 12/22/19 06:15: Sodium 137, Potassium 3.9, Chloride 104, Carbon Dioxide 26.0, Anion Gap 7, BUN 12, Creatinine 0.96, Estim Creat Clear Calc 60.92, Est GFR (MDRD) Af Amer 98, Est GFR (MDRD) Non-Af 81, BUN/Creatinine Ratio 12.5, Glucose 119 H, Calcium 7.8 L Current Medications Acetaminophen (Tylenol) 650 mg PO Q6H PRN PRN PRN Reason: Pain Score 1-10/Temp > 100.7 F Last Admin: 12/22/19 16:23 Dose: 650 mg Documented by: Al Hydroxide/Mg Hydroxide (Mylanta Ii) 30 ml PO Q6H PRN PRN PRN Reason: Gastric Burning Albuterol Sulfate (Ventolin Aerosols) 2.5 mg INHALATION Q2H PRN PRN PRN Reason: Shortness of Breath/Wheezing Atorvastatin Calcium (Lipitor) 20 mg PO QHS [facility] Enoxaparin Sodium (Lovenox) 40 mg SC DAILY [facility] Last Admin: 12/22/19 08:30 Dose: 40 mg Documented by: Folic Acid (Folic Acid) 1 mg PO DAILY@0800 [facility] Last Admin: 12/22/19 08:29 Dose: 1 mg Documented by: Glucagon () 1 mg IM .X1 PRN PRN Reason: Hypoglycemia Guaifenesin (Robitussin) 20 ml PO Q4H PRN PRN PRN Reason: COUGH Hydralazine HCl (Apresoline Iv) 10 mg IV Q4H PRN PRN PRN Reason: SBP > 160 Last Admin: 12/22/19 16:24 Dose: 10 mg Documented by: Sodium Chloride () 1,000 mls @ 100 mls/hr IV .Q10H [facility] Last Admin: 12/22/19 16:15 Dose: 100 mls/hr Documented by: Vancomycin IV Pharmacy to Dose (1 ea/ Sodium Chloride) 500 mls @ 250 mls/hr IV X1 PRN; Protocol PRN Reason: Rx to Dose Dextrose (Dextrose 10%-Water) 250 mls @ 999 mls/hr IV .Q16M PRN; Protocol PRN Reason: HYPOGLYCEMIA Vancomycin HCl 750 mg/ Sodium (Chloride) 265 mls @ 250 mls/hr IV Q12H [facility] Last Infusion: 12/22/19 12:21 Dose: Infused Documented by: Ibuprofen (Motrin) 400 mg PO Q4H PRN PRN PRN Reason: Pain Score 1-10/Temp > 100.7 F Levothyroxine Sodium (Synthroid) 125 mcg PO DAILY@0600 [facility] Last Admin: 12/22/19 05:12 Dose: 125 mcg Documented by: Magnesium Hydroxide (Milk Of Magnesia) 30 ml PO DAILY PRN PRN PRN Reason: Constipation Melatonin (Melatonin) 3 mg PO QHS PRN PRN PRN Reason: INSOMNIA Morphine Sulfate () 2 mg IV Q3H PRN PRN PRN Reason: Pain Score 6-10/10 Nitroglycerin (Nitrostat) 0.4 mg SUBLINGUAL Q5M PRN PRN Reason: CARDIAC/CHEST PAIN Ondansetron HCl (Zofran) 4 mg IV Q8H PRN PRN PRN Reason: NAUSEA/VOMITING Oxycodone HCl (Oxyir) 5 mg PO Q4H PRN PRN PRN Reason: Pain Score 4-5/10 Pantoprazole Sodium (Protonix) 20 mg PO DAILY [facility] Last Admin: 12/22/19 08:29 Dose: 20 mg Documented by: Prochlorperazine Edisylate (Compazine Iv) 5 mg IV Q4H PRN PRN PRN Reason: Breakthrough nausea/vomiting Psyllium Hydrophilic Mucilloid (Metamucil) 1 packet PO DAILY PRN PRN PRN Reason: Constipation Senna/Docusate Sodium (Senokot-S, Ayala-Colace) 2 tablet PO BID PRN PRN PRN Reason: Constipation Throat Lozenges (Cepacol Sore Throat Lozenge) 1 lozenge MUCOUS MEM Q2H PRN PRN PRN Reason: SORE THROAT Medical Necessity - Tobacco Use Smoking Status: Never smoker Tobacco Use: Non-smoker Assessment/Plan All Active Problems (Last Reviewed 12/19/19 @ 09:06 by Jazmyn Muñoz) Encounter for adjustment and management of vascular access device (Resolved) Hoarseness of voice (Acute) Rash (Acute) Bacteremia (Acute) Hx of lymph node biopsy (Acute) History of tonsillectomy and adenoidectomy (Acute) History of wisdom tooth extraction (Resolved) Pneumothorax, left (Resolved) #1+ blood [id number] cocci in clusters-identification not back from the lab yet, patient will continue on vancomycin for now, infectious diseases will see the patient tomorrow #2 systolic murmur at apex-etiology unclear, patient states he has never been told he has a murmur, echocardiogram was ordered #3 non-small cell lung cancer #4 essential hypertension #5 hyperlipidemia #6 hypothyroidism Inpatient E&M: 77422 Subs Hosp L2
[2019-12-22] MEDS: Atorvastatin Calcium 20 MG Tablet PO (21:24)
[2019-12-23] MEDS: 0.9% Normal Saline 1,000 ML 100 ML IV ×3 (00:51→23:59)
[2019-12-23] MEDS: Acetaminophen 325 MG Tablet 650 MG PO ×2 (00:54→20:12)
[2019-12-23 03:09] VITALS: BP 149/97; PULSE 94; RESP 16; TEMP 36.8; O2SAT 95
[2019-12-23] MEDS: Levothyroxine 125 MCG Tablet PO (05:37)
[2019-12-23 06:44] LABS: Absolute Lymphocyte Count 0.96 X10^3/uL (0.83-4.51); Absolute Neutrophil Count 11.8 X10^3/uL (2.0-7.7); Basophil# 0.09 X10^3/uL; Basophil% 0.6 % (0-1); Eosinophils% 1.4 % (0-5); Hematocrit 39.1 % (40-54); Hemoglobin 12.7 g/dL (13.0-16.5); Lymphocyte # 0.96 X10^3/ul (4.0); Lymphocyte % 6.5 % (19-41); Mean Corp Hgb Conc 32.5 g/dL (32-36); Mean Corpuscular Hgb 29.3 pg (27.0-32.0); Mean Corpuscular Volume 90.3 fL (80-94); Mean Platelet Vol. 8.5 fl (6.2-12.0); Monocyte# 1.43 X10^3/uL; Monocyte% 9.7 % (0-10); NRBC Flagged by Analyzer 0 % (0-5); Neutrophil # 11.77 X10^3/uL (2.7-7.7); Neutrophil % 79.7 % (47-70); Platelet Count 157 K/mm3 (150-450); RBC Distribution Width CV 16.8 % (11.6-14.6); RBC Distribution Width SD 53.6 fl (35.1-43.9); Red Blood Count 4.33 M/mm3 (4.6-6.2); White Blood Count 14.8 K/mm3 (4.4-11.0)
--- NOTE | 2019-12-23 09:25 | NURSING ---
echo completed at bedside this AM
[2019-12-23 09:51] VITALS: BP 160/92; PULSE 91; RESP 18; TEMP 36.4; O2SAT 98
[2019-12-23] MEDS: Pantoprazole Sodium 20 MG Tablet PO (09:55)
[2019-12-23] MEDS: Folic Acid 1 MG Tablet PO (09:55)
[2019-12-23] MEDS: Enoxaparin 40 MG/0.4 ML Syringe SC (09:55)
--- NOTE | 2019-12-23 11:40 | NURSING ---
Bibi from lab called this nurse and informed that lab for Vanco trough was done.
--- NOTE | 2019-12-23 12:17 | NURSING ---
brought in off brand ensure protein max that pt likes to drink at home and states that she brought in cartons for pt. Pt having poor appetite and glad she brought them in.
[2019-12-23 12:18] LABS: Vancomycin, Trough Level 6.3 ug/mL (5.0-15.0)
--- NOTE | 2019-12-23 13:33 | PCM.RX.CS ---
Consult Pharmacy has been consulted to manage selected antiobiotic: Vancomycin Type of Consult: Follow-up Suspected Infection: Bacteremia Prior Doses of Antibiotics Received/Current Regimen: VANCOMYCIN 750MG IV Q12HR 12/22@0051, 1155 Labs: Sodium 137 mmol/L (136-145) 12/22/19 06:15 Potassium 3.9 mmol/L (3.5-5.1) 12/22/19 06:15 Chloride 104 mmol/L (98-107) 12/22/19 06:15 Carbon Dioxide 26.0 mmol/L (21.0-32.0) 12/22/19 06:15 Anion Gap 7 (5-15) 12/22/19 06:15 BUN 12 mg/dL (7-18) 12/22/19 06:15 Creatinine 0.96 mg/dL (0.70-1.30) 12/22/19 06:15 Est GFR (MDRD) Af Amer 98 mL/min (>60) 12/22/19 06:15 Est GFR (MDRD) Non-Af 81 mL/min (>60) 12/22/19 06:15 BUN/Creatinine Ratio 12.5 RATIO (10-20) 12/22/19 06:15 Glucose 119 mg/dL (74-106) H 12/22/19 06:15 Vancomycin Trough 6.3 ug/mL (5.0-15.0) 12/23/19 11:23 Microbiology: Microbiology 12/21/19 20:41 Urine, Random Urine Culture - Preliminary Culture exhibits no growth. 12/21/19 21:15 Blood Culture (Wb) - Right Hand Blood Culture - Preliminary Goal Trough: 15-20 mcg/mL Pharmacy Plan for Drug Dosing: The patient had a trough drawn which resulted in a value of 6.3 (drawn ~10.5hrs from last administered dose). The patient's current trough goal is 15-20. The patient has had a significant improvement in renal function since admission, which could have contributed to the patient's low trough. In light of this, will increase the patient's dose, and start new dosing 8 hours from last administered dose since the patient has had their morning dose already today. Will draw another trough prior to 4th dose of new regimen per protocol. PLAN/RECOMMENDATIONS 1. Start vancomycin 1750mg IV Q12hrs 12/23/19 @1999 2. Trough prior to 4th dose of new regimen 12/25/19 @8772 3. Pharmacy Service will continue to monitor and adjust dosing as required.
[2019-12-23 15:06] VITALS: BP 160/88; PULSE 94; RESP 18; TEMP 37.4; O2SAT 97
--- NOTE | 2019-12-23 16:24 | PN_ITS ---
Patient Problems: Active and Suspected Problems (Last Updated 12/22/19 @ 18:[address] Danis Wilder, DO) Bacteremia (Acute) Subjective: Patient was seen and examined today, patient's transthoracic echocardiogram did not show significant valvular heart disease, I relayed this to the and patient. Patient asked me about his multivitamin, I told him I did not feel it was necessary for him to take the multivitamin while he was in the hospital and he could resume it at home. I talked briefly with infectious diseases, they are going to review the patient's medical record and make appropriate recommendations. Patient's white blood cell count trended lower today, patient denies any fever or chills. - Physical Exam Vitals/I&O's: Vital Signs Temp Pulse Resp BP Pulse Ox 99.3 F H 94 18 160/88 H 97 12/23/19 15:06 12/23/19 15:06 12/23/19 15:06 12/23/19 15:06 12/23/19 15:06 Oxygen Delivery Method Room Air Weight: 85.3 kg Body Mass Index (BMI) 30.3 Intake and Output for Last 24 Hours 12/21/19 12/22/19 12/23/19 23:59 23:59 23:59 Intake Total 1000 / 1000 3111.66 / 3111.66 3510.01 / 3510.01 Output Total 3325 / 3325 1400 / 1400 Balance 1000 / 1000 -213.34 / -213.34 2110.01 / 2110.01 General: Alert, Oriented x3, Cooperative, No apparent distress, Well developed, Well nourished HEENT: Atraumatic, PERRLA, EOMI, Normocephalic Oral: Moist Mucosa Neck: Supple, No JVD, Trachea Midline, Thyroid Normal Size and Texture Lungs: Clear to auscultation, Normal air movement, No rhonchi, No wheeze, No rales Cardiovascular: Regular rate, Regular Rhythm, Normal S1, Normal S2, Murmur - 2/6 systolic murmur is noted at the apex Abdomen: Bowel Sounds Present, Soft, Non Tender, Non-Distended Extremities: No clubbing, No cyanosis, No edema, Capillary Refill Less than 3 Seconds Skin: No rashes, No breakdown Musculoskeletal: No Tenderness to Palpation of Joints or Extremities Neurological: Cranial nerves II-XII grossly intact, Neuro grossly intact, Muscle tone normal, Sensory exam intact to light touch and pain Psych/Mental Status: Normal Affect, Appropriate, Alert and oriented to time, place, person, mood and affect Microbiology Past 72 Hours 12/21/19 20:41 Urine, Random Urine Culture - Preliminary Culture exhibits no growth. 12/21/19 21:15 Blood Culture (Wb) - Right Hand Blood Culture - Preliminary Laboratory Results 12/23/19 06:33: WBC 14.8 H, RBC 4.33 L, Hgb 12.7 L, Hct 39.1 L, MCV 90.3, MCH 29.3, MCHC 32.5, RDW Std Deviation 53.6 H, RDW Coeff of Gino 16.8 H, Plt Count 157, MPV 8.5, Immature Gran % (Auto) 2.100 H, Neut % (Auto) 79.7 H, Lymph % (Auto) 6.5 L, [place] % (Auto) 9.7, Eos % (Auto) 1.4, Baso % (Auto) 0.6, Absolute Neuts (auto) 11.8 H, Absolute Lymphs (auto) 0.96, Nucleated RBC % 0 12/23/19 11:23: Vancomycin Trough 6.3 Current Medications Acetaminophen (Tylenol) 650 mg PO Q6H PRN PRN PRN Reason: Pain Score 1-10/Temp > 100.7 F Last Admin: 12/23/19 00:54 Dose: 650 mg Documented by: Al Hydroxide/Mg Hydroxide (Mylanta Ii) 30 ml PO Q6H PRN PRN PRN Reason: Gastric Burning Albuterol Sulfate (Ventolin Aerosols) 2.5 mg INHALATION Q2H PRN PRN PRN Reason: Shortness of Breath/Wheezing Atorvastatin Calcium (Lipitor) 20 mg PO QHS [facility] Last Admin: 12/22/19 21:24 Dose: 20 mg Documented by: Enoxaparin Sodium (Lovenox) 40 mg SC DAILY [facility] Last Admin: 12/23/19 09:55 Dose: 40 mg Documented by: Folic Acid (Folic Acid) 1 mg PO DAILY@0800 [facility] Last Admin: 12/23/19 09:55 Dose: 1 mg Documented by: Glucagon () 1 mg IM .X1 PRN PRN Reason: Hypoglycemia Guaifenesin (Robitussin) 20 ml PO Q4H PRN PRN PRN Reason: COUGH Sodium Chloride () 1,000 mls @ 100 mls/hr IV .Q10H [facility] Last Admin: 12/23/19 11:55 Dose: 100 mls/hr Documented by: Vancomycin IV Pharmacy to Dose (1 ea/ Sodium Chloride) 500 mls @ 250 mls/hr IV X1 PRN; Protocol PRN Reason: Rx to Dose Dextrose (Dextrose 10%-Water) 250 mls @ 999 mls/hr IV .Q16M PRN; Protocol PRN Reason: HYPOGLYCEMIA Vancomycin HCl 1,750 mg/ (Sodium Chloride) 535 mls @ 250 mls/hr IV Q12H [facility] Ibuprofen (Motrin) 400 mg PO Q4H PRN PRN PRN Reason: Pain Score 1-10/Temp > 100.7 F Levothyroxine Sodium (Synthroid) 125 mcg PO DAILY@0600 [facility] Last Admin: 12/23/19 05:37 Dose: 125 mcg Documented by: Magnesium Hydroxide (Milk Of Magnesia) 30 ml PO DAILY PRN PRN PRN Reason: Constipation Melatonin (Melatonin) 3 mg PO QHS PRN PRN PRN Reason: INSOMNIA Morphine Sulfate () 2 mg IV Q3H PRN PRN PRN Reason: Pain Score 6-10/10 Nitroglycerin (Nitrostat) 0.4 mg SUBLINGUAL Q5M PRN PRN Reason: CARDIAC/CHEST PAIN Ondansetron HCl (Zofran) 4 mg IV Q8H PRN PRN PRN Reason: NAUSEA/VOMITING Oxycodone HCl (Oxyir) 5 mg PO Q4H PRN PRN PRN Reason: Pain Score 4-5/10 Pantoprazole Sodium (Protonix) 20 mg PO DAILY [facility] Last Admin: 12/23/19 09:55 Dose: 20 mg Documented by: Prochlorperazine Edisylate (Compazine Iv) 5 mg IV Q4H PRN PRN PRN Reason: Breakthrough nausea/vomiting Psyllium Hydrophilic Mucilloid (Metamucil) 1 packet PO DAILY PRN PRN PRN Reason: Constipation Senna/Docusate Sodium (Senokot-S, Ayala-Colace) 2 tablet PO BID PRN PRN PRN Reason: Constipation Sodium Chloride (Etta Nasal [place]) 2 spray NASAL TID PRN PRN PRN Reason: NASAL DRYNESS Throat Lozenges (Cepacol Sore Throat Lozenge) 1 lozenge MUCOUS MEM Q2H PRN PRN PRN Reason: SORE THROAT Medical Necessity - Tobacco Use Smoking Status: Never smoker Tobacco Use: Non-smoker Assessment/Plan All Active Problems (Last Updated 12/22/19 @ 18:[address] 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
--- NOTE | 2019-12-23 17:57 | PCM.HP.ID ---
Problem List (1) Bacteremia Status: Acute Reason for Consult: (+) bcx Consulted by: Dr. Wilder History of Present Illness: The patient is a 74 year old M with metastatic NSCLC, port in place, monthly chemo, presented 12/20 with 2-3 days of mild night sweats, then one day of fever. Port was accessed the day prior to admit, no issues with pain/redness/swelling, no chills when it was flushed. Sweats started prior to the recent port access. No other focal symptoms, no joint pain. No rash. No recent dental work. Came to ED, admitted on vanc, single bcx with GPC. Full ROS Performed and neg except as noted above. - Medical History Past Medical History (Chronic Problems): Chronic Problems (Last Updated 12/22/19 @ 18:[address] 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) Lung metastases (Chronic) Primary lung cancer (Chronic) Non-small cell carcinoma of lung (Chronic) HTN (hypertension) (Chronic) HLD (hyperlipidemia) (Chronic) Hypothyroidism (Chronic) Anemia (Chronic) Allergies/Adverse Reactions: Allergies No Known Allergies Allergy (Verified 12/21/19 20:21) Home Medications: Ambulatory Orders Medication Instructions Recorded Levothyroxine [Synthroid] 125 mcg PO DAILY 10/24/16 Multivitamin [Multiple Vitamins] 1 ea PO DAILY 10/24/16 Omeprazole [Prilosec] 10 mg PO DAILY 10/24/16 Atorvastatin Calcium [Lipitor] 20 mg PO QHS 01/25/19 Acetaminophen [Tylenol Tablet] 650 mg PO Q4H PRN PRN tab 02/04/19 Folic Acid 800 mcg PO DAILY 11/16/19 Dexamethasone [Decadron] 4 mg PO Q12H 12/22/19 - Social History SMOKING STATUS:: Former smoker Vital Signs Temp Pulse Resp BP Pulse Ox 99.3 F H 94 18 160/88 H 97 12/23/19 15:06 12/23/19 15:06 12/23/19 15:06 12/23/19 15:06 12/23/19 15:06 Oxygen Delivery Method Room Air Weight: 85.3 kg Body Mass Index (BMI) 30.3 Microbiology Past 72 Hours 12/21/19 20:41 Urine Culture - Preliminary Urine, Random Culture exhibits no growth. 12/21/19 21:15 Blood Culture - Preliminary Blood Culture (Wb) - Right Hand Laboratory Tests Past 24 Hrs 12/23/19 12/23/19 06:33 11:23 WBC 14.8 H RBC 4.33 L Hgb 12.7 L Hct 39.1 L MCV 90.3 MCH 29.3 MCHC 32.5 RDW Std Deviation 53.6 H RDW Coeff of Gino 16.8 H Plt Count 157 MPV 8.5 Immature Gran % (Auto) 2.100 H Neut % (Auto) 79.7 H Lymph % (Auto) 6.5 L [place] % (Auto) 9.7 Eos % (Auto) 1.4 Baso % (Auto) 0.6 Absolute Neuts (auto) 11.8 H Absolute Lymphs (auto) 0.96 Nucleated RBC % 0 Vancomycin Trough 6.3 - Other Studies Radiology: [] reviewed Other Studies: [] Route of nutrition/ use of supplements: [] Nutritional Intake: [] IV Site: [] [place] Catheter: [] - Physical Exam General: Alert, Oriented x3, Cooperative, No apparent distress HEENT: Atraumatic, PERRLA, EOMI Neck: Supple, No Nodes Lungs: Clear to auscultation, Normal air movement Cardiovascular: Regular rate, Regular Rhythm, No murmurs Abdomen: Soft, Non Tender, Non-Distended Extremities: No edema Skin: No rashes, - - fingers with about a 100+ splinter hemorrhages, none on toes IV Site: Central Line, without redness Musculoskeletal: No Tenderness to Palpation of Joints or Extremities - no spine tenderness Neurological: Cranial nerves II-XII grossly intact - Assessment/Plan Antibiotics: [] Assessment/Plan: [] Active and Suspected Problems (Last Updated 12/22/19 @ 18:[address] Danis Wilder, DO) Bacteremia (Acute) GPC (+) bcx in pt with port, metastatic NSCLC - feeling well. Numerous splinter hemorrhages on fingers, he is not sure how long they have been there. TTE showed no veg. Will repeat bcx, continue vanc. Will follow, thank you.
[2019-12-23 20:13] VITALS: BP 163/93; PULSE 102; RESP 16; TEMP 37.2; O2SAT 95
[2019-12-23] MEDS: Atorvastatin Calcium 20 MG Tablet PO (21:18)
[2019-12-23] MEDS: Sodium Chloride 0.65% 1 SPRAY SPRAY.BTL 2 SPRAY NASAL (21:18)
[2019-12-24] VITALS (7 sets, daily range): BP systolic 135–178; BP diastolic 78–107; PULSE 88–105; RESP 16–18; TEMP 36.2–37.6; O2SAT 95–98
[2019-12-24] MEDS: hydrALAZINE 20 MG/ML Vial 10 MG IV (02:47)
[2019-12-24] MEDS: Levothyroxine 125 MCG Tablet PO (06:26)
[2019-12-24 08:07] LABS: Absolute Lymphocyte Count 0.82 X10^3/uL (0.83-4.51); Absolute Neutrophil Count 10.7 X10^3/uL (2.0-7.7); Basophil# 0.07 X10^3/uL; Basophil% 0.5 % (0-1); Eosinophil# 0.13 X10^3/uL; Hemoglobin 12.6 g/dL (13.0-16.5); Lymphocyte # 0.82 X10^3/ul (4.0); Lymphocyte % 6.2 % (19-41); Mean Corp Hgb Conc 32.3 g/dL (32-36); Mean Corpuscular Hgb 28.6 pg (27.0-32.0); Mean Corpuscular Volume 88.6 fL (80-94); Mean Platelet Vol. 8.3 fl (6.2-12.0); Monocyte% 9.1 % (0-10); NRBC Flagged by Analyzer 0 % (0-5); Neutrophil # 10.73 X10^3/uL (2.7-7.7); Neutrophil % 81.2 % (47-70); Platelet Count 180 K/mm3 (150-450); RBC Distribution Width SD 53.8 fl (35.1-43.9); White Blood Count 13.2 K/mm3 (4.4-11.0)
[2019-12-24] MEDS: Enoxaparin 40 MG/0.4 ML Syringe SC (08:26)
[2019-12-24] MEDS: Pantoprazole Sodium 20 MG Tablet PO (08:26)
[2019-12-24] MEDS: Folic Acid 1 MG Tablet PO (08:26)
[2019-12-24 08:29] LABS: Anion Gap 8 (5-15); BUN 11 mg/dL (7-18); BUN/Creat Ratio 12.9 RATIO (10-20); Calcium,Total 8.4 mg/dL (8.5-10.1); Chloride 108 mmol/L (98-107); Creatinine, Serum 0.86 mg/dL (0.70-1.30); EST Glomerular Filtration Rate 93 mL/min (>60); Est Glom Filt Rate - Afr Amer 112 mL/min (>60); Glucose 121 mg/dL (74-106); Potassium 3.7 mmol/L (3.5-5.1); Sodium Level 140 mmol/L (136-145)
[2019-12-24] MEDS: Acetaminophen 325 MG Tablet 650 MG PO (08:31)
--- NOTE | 2019-12-24 11:44 | DCINST_ITS ---
- Discharge Diagnoses Current Active Problems: Current Active and Chronic Problems (Last Updated 12/22/19 @ 18:[address] Danis Wilder, DO) Bacteremia (Acute) You will use the following diet at home:: Cardiac Your food should be the consistency of: Regular Your liquids should be the consistency of: Regular/Thin Discharge Activity: Return to Normal Activity Weight Bearing Status: Weight bearing as tolerated Call your doctor if you observe: Fever of 101 or Higher, Shortness of breath Instructions: Axillary Temperature, Chemotherapy, White Cell Count, Oncology: P reventing Infections Allergies/Adverse Reactions: Allergies No Known Allergies Allergy (Verified 12/21/19 20:21) Medications to take at Discharge Levothyroxine [Synthroid] 125 mcg PO DAILY 10/24/16 Multivitamin [Multiple Vitamins] 1 ea PO DAILY 10/24/16 Omeprazole [Prilosec] 10 mg PO DAILY 10/24/16 Atorvastatin Calcium [Lipitor] 20 mg PO QHS 01/25/19 Acetaminophen [Tylenol Tablet] 650 mg PO Q4H PRN PRN tab 02/04/19 Folic Acid 800 mcg PO DAILY 11/16/19 Dexamethasone [Decadron] 4 mg PO Q12H 12/22/19 Primary Care Physician: Isrrael Zaldivar MD [Primary Care Provider] - Please follow up with your Primary Care Physician in: one week Test Results: Test results from this visit will be discussed in further detail at your follow- up appointment, if applicable. Please Follow Up With: Santi Liu MD When: 1-2 weeks Proposed Discharge Date: 12/24/19
--- NOTE | 2019-12-24 11:50 | PCM.DC.SUM ---
Discharge Date and Diagnosis - Problem List Patient Problems: Active and Suspected Problems (Last Updated 12/22/19 @ 18:[address] Danis Wilder DO) Bacteremia (Acute) Date of Admission: 12/21/19 Date of Discharge: 12/24/19 - Primary Discharge Diagnosis Active and Suspected Problems (Last Updated 12/22/19 @ 18:[address] Danis Wilder DO) Bacteremia (Acute) - Secondary Discharge Diagnosis Chronic Problems (Last Updated 12/22/19 @ 18:[address] 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 He was admitted through the ED on 12/21/2019 with a complaint of fever of 100.4 at home with fatigue, malaise and diaphoresis. He denied any history of erythema or discharge around the site of his port. Urinalysis was unremarkable and temperature was 99.7 Fahrenheit on admission. WBC was 17.3. Mother stated that patient had been on Decadron at home. Blood cultures obtained in the ED were positive preliminarily for gram-positive cocci in clusters. Was admitted and managed for fever and acute bacteremia and started on IV meropenem, though this was later switched to IV vancomycin. Infectious disease was consulted. 2D echo ordered showed EF of 60% with no regional wall motion abnormalities and only mild aortic stenosis. There were no vegetations seen. Of note, blood cultures showed only 1 out of 2 samples positive for gram-positive cocci in clusters. Repeat blood cultures were done and is at 12/24/2019, these were negative. This was discussed with the microbiology lab who thought that the earlier reading of preliminary positive blood cultures must have been a false positive as they had not seen any proper growth on all the blood cultures that had been plated. This was discussed with infectious disease in light of there is not been any clear evidence of infection and white cell count elevation that could be explained by patient being on Decadron, decision was made to discharge patient home on no antibiotics. He was discharged home on 12/24/2019. He is to follow-up with his primary care doctor, and oncologist within 1 week. Patient seen and examined prior to discharge. He felt well and wanted to be discharged home. He denied any fever, chills, nausea vomiting, chest pain, abdominal pain, diarrhea vomiting. Review of symptoms otherwise negative. Labs and vitals reviewed. Home medication reviewed and reconciled. o/e: Vital Signs Height 5 ft 6 in Weight: 188 lb 0.869 oz Weight in Pounds 188.1 lbs Pulse Ox 97 Temperature 98.7 F Pulse Rate 96 Respiratory Rate 18 Blood Pressure [BP] 134/76 Blood Pressure 135/78 Blood Pressure Position [BP] Sitting Blood Pressure Position Semi-Fowlers [] General: Alert, Oriented x3, Cooperative, No apparent distress, HEENT: Atraumatic, PERRLA, EOMI, Normocephalic Oral: Moist Mucosa Neck: Supple, No JVD, Trachea Midline, Lungs: Clear to auscultation, Normal air movement, No rhonchi, No wheeze, No rales Cardiovascular: Regular rate, Regular Rhythm, Normal S1, Normal S2, no audible murmurs Abdomen: Bowel Sounds Present, Soft, Non Tender, Non-Distended Extremities: No clubbing, No cyanosis, No edema, Capillary Refill Less than 3 Seconds Skin: No rashes, No breakdown, chemotherapy port in left chest Musculoskeletal: No Tenderness to Palpation of Joints or Extremities Neurological: Cranial nerves II-XII grossly intact, Neuro grossly intact, Muscle tone normal, Psych/Mental Status: Normal Affect, Appropriate, Alert and oriented to time, place, person, mood and affect Plan, per discussion with Dr. Smith, is to discharge patient home with no antibiotics. Patient Problems: Active and Suspected Problems (Last Updated 12/22/19 @ 18:[address] Danis Wilder, DO) Bacteremia (Acute) - Physical Exam Vitals/I&O's: Vital Signs Temp Pulse Resp BP Pulse Ox 98.7 F 96 18 135/78 H 97 12/24/19 08:19 12/24/19 08:19 12/24/19 08:19 12/24/19 08:19 12/24/19 08:19 Oxygen Delivery Method Room Air Weight: 188 lb 0.869 oz Body Mass Index (BMI) 30.3 Intake and Output for Last 24 Hours 12/22/19 12/23/19 12/24/19 23:59 23:59 23:59 Intake Total 3111.66 / 3111.66 5818.34 / 6118.34 1785 / 1785 Output Total 3325 / 3325 2050 / 2375 950 / 950 Balance -213.34 / -213.34 3768.34 / 3743.34 835 / 835 Microbiology Past 72 Hours 12/21/19 21:02 Blood Culture (Wb) #2 - Port Blood Culture - Preliminary No growth in 48 hours. 12/21/19 21:15 Blood Culture (Wb) - Right Hand Blood Culture - Preliminary 12/21/19 20:41 Urine, Random Urine Culture - Preliminary Culture exhibits no growth. Laboratory Results 12/23/19 11:23: Vancomycin Trough 6.3 12/24/19 07:35: WBC 13.2 H, RBC 4.40 L, Hgb 12.6 L, Hct 39.0 L, MCV 88.6, MCH 28.6, MCHC 32.3, RDW Std Deviation 53.8 H, RDW Coeff of Gino 17.0 H, Plt Count 180, MPV 8.3, Immature Gran % (Auto) 2.000 H, Neut % (Auto) 81.2 H, Lymph % (Auto) 6.2 L, Lamar % (Auto) 9.1, Eos % (Auto) 1.0, Baso % (Auto) 0.5, Absolute Neuts (auto) 10.7 H, Absolute Lymphs (auto) 0.82 L, Nucleated RBC % 0 12/24/19 07:35: Sodium 140, Potassium 3.7, Chloride 108 H, Carbon Dioxide 24.0, Anion Gap 8, BUN 11, Creatinine 0.86, Estim Creat Clear Calc 68.00, Est GFR (MDRD) Af Amer 112, Est GFR (MDRD) Non-Af 93, BUN/Creatinine Ratio 12.9, Glucose 121 H, Calcium 8.4 L Current Medications Acetaminophen (Tylenol) 650 mg PO Q6H PRN PRN PRN Reason: Pain Score 1-10/Temp > 100.7 F Last Admin: 12/24/19 08:31 Dose: 650 mg Documented by: Al Hydroxide/Mg Hydroxide (Mylanta Ii) 30 ml PO Q6H PRN PRN PRN Reason: Gastric Burning Albuterol Sulfate (Ventolin Aerosols) 2.5 mg INHALATION Q2H PRN PRN PRN Reason: Shortness of Breath/Wheezing Atorvastatin Calcium (Lipitor) 20 mg PO QHS [facility] Last Admin: 12/23/19 21:18 Dose: 20 mg Documented by: Enoxaparin Sodium (Lovenox) 40 mg SC DAILY [facility] Last Admin: 12/24/19 08:26 Dose: 40 mg Documented by: Folic Acid (Folic Acid) 1 mg PO DAILY@0800 [facility] Last Admin: 12/24/19 08:26 Dose: 1 mg Documented by: Glucagon () 1 mg IM .X1 PRN PRN Reason: Hypoglycemia Guaifenesin (Robitussin) 20 ml PO Q4H PRN PRN PRN Reason: COUGH Hydralazine HCl (Apresoline Iv) 10 mg IV Q4H PRN PRN PRN Reason: SBP > 160 Last Admin: 12/24/19 02:47 Dose: 10 mg Documented by: Sodium Chloride () 1,000 mls @ 100 mls/hr IV .Q10H [facility] Last Infusion: 12/24/19 10:30 Dose: 100 mls/hr Documented by: Vancomycin IV Pharmacy to Dose (1 ea/ Sodium Chloride) 500 mls @ 250 mls/hr IV X1 PRN; Protocol PRN Reason: Rx to Dose Dextrose (Dextrose 10%-Water) 250 mls @ 999 mls/hr IV .Q16M PRN; Protocol PRN Reason: HYPOGLYCEMIA Vancomycin HCl 1,750 mg/ (Sodium Chloride) 535 mls @ 250 mls/hr IV Q12H [facility] Last Infusion: 12/24/19 10:30 Dose: Infused Documented by: Ibuprofen (Motrin) 400 mg PO Q4H PRN PRN PRN Reason: Pain Score 1-10/Temp > 100.7 F Levothyroxine Sodium (Synthroid) 125 mcg PO DAILY@0600 [facility] Last Admin: 12/24/19 06:26 Dose: 125 mcg Documented by: Magnesium Hydroxide (Milk Of Magnesia) 30 ml PO DAILY PRN PRN PRN Reason: Constipation Melatonin (Melatonin) 3 mg PO QHS PRN PRN PRN Reason: INSOMNIA Morphine Sulfate () 2 mg IV Q3H PRN PRN PRN Reason: Pain Score 6-10/10 Nitroglycerin (Nitrostat) 0.4 mg SUBLINGUAL Q5M PRN PRN Reason: CARDIAC/CHEST PAIN Ondansetron HCl (Zofran) 4 mg IV Q8H PRN PRN PRN Reason: NAUSEA/VOMITING Oxycodone HCl (Oxyir) 5 mg PO Q4H PRN PRN PRN Reason: Pain Score 4-5/10 Pantoprazole Sodium (Protonix) 20 mg PO DAILY [facility] Last Admin: 12/24/19 08:26 Dose: 20 mg Documented by: Prochlorperazine Edisylate (Compazine Iv) 5 mg IV Q4H PRN PRN PRN Reason: Breakthrough nausea/vomiting Psyllium Hydrophilic Mucilloid (Metamucil) 1 packet PO DAILY PRN PRN PRN Reason: Constipation Senna/Docusate Sodium (Senokot-S, Ayala-Colace) 2 tablet PO BID PRN PRN PRN Reason: Constipation Sodium Chloride ([place] Nasal [place]) 2 spray NASAL TID PRN PRN PRN Reason: NASAL DRYNESS Last Admin: 12/23/19 21:18 Dose: 2 spray Documented by: Throat Lozenges (Cepacol Sore Throat Lozenge) 1 lozenge MUCOUS MEM Q2H PRN PRN PRN Reason: SORE THROAT Discharge Activity: Return to Normal Activity Weight Bearing Status: Weight bearing as tolerated Call your doctor if you observe: Fever of 101 or Higher, Shortness of breath Home Medications: Medications to take at Discharge Levothyroxine [Synthroid] 125 mcg PO DAILY 10/24/16 Multivitamin [Multiple Vitamins] 1 ea PO DAILY 10/24/16 Omeprazole [Prilosec] 10 mg PO DAILY 10/24/16 Atorvastatin Calcium [Lipitor] 20 mg PO QHS 01/25/19 Acetaminophen [Tylenol Tablet] 650 mg PO Q4H PRN PRN tab 02/04/19 Folic Acid 800 mcg PO DAILY 11/16/19 Dexamethasone [Decadron] 4 mg PO Q12H 12/22/19 Primary Care Physician: Isrrael Zaldivar MD [Primary Care Provider] - Please follow up with your Primary Care Physician in: one week Please Follow Up With: Santi Liu MD When: 1-2 weeks Patient Instructions: White Cell Count, Axillary Temperature, Oncology: Preventing Infections, Chemotherapy Disposition: Home Minutes spent on discharge:: 40 Patient Condition:: Stable Medical Necessity - Tobacco Use Smoking Status: Never smoker Tobacco Use: Non-smoker Meaningful Use Info Meaningful Use Diagnoses (Choose all that apply): None applicable Inpatient E&M: 17499 Disch Hosp
[2019-12-24] MEDS: 0.9% Saline Lock 10 ML Syringe IV (13:28)
--- NOTE | 2019-12-26 14:06 | CASEMGMT ---
DC DATE: 12.24.2019 DC DISPOSITION: Home DC DIAGNOSIS: Bacteremia LACE/STRATA: 08/14 F/U APPTS MADE PRIOR TO DC: no/dc on thursday Attempted to contact pt for DC phone call. No answer and machine did not have name identifier. Martina TREJON RN ACM
== END 2019-12-24 13:15 | disposition home or self-care (01) | DRG 872 ==
LOC: ED 21:08 → MS3 23:59
PROVIDERS: Internal Medicine; Admitting Provider Family Medicine; Emergency Provider Emergency Medicine; PCP Family Medicine; Visit Provider Student in an Organized Health Care Education/Training Program
DX: R78.81 Bacteremia (principal); C34.90 Malignant neoplasm of unspecified part of unspecified bronchus or lung; C77.8 Secondary and unspecified malignant neoplasm of lymph nodes of multiple regions; C78.00 Secondary malignant neoplasm of unspecified lung; E78.5 Hyperlipidemia, unspecified; E03.9 Hypothyroidism, unspecified; I10 Essential (primary) hypertension; Z87.891 Personal history of nicotine dependence; D64.9 Anemia, unspecified; K21.9 Gastro-esophageal reflux disease without esophagitis; Z79.899 Other long term (current) drug therapy
CPT/HCPCS: 36415; 36591; 71046; 80048; 80053; 80202; 81001; 83605; 83735; 84100; 85025; 85610; 85730; 87040; 87086; 93306; 99251; 99284; J7030; J7040; J7050; Q9957; A4216; C8929; G0463

== ENCOUNTER → 2020-01-09 13:18 | Outpatient (CLI) | payer MEDICARE, SELFPAY ==
[2019-12-28 10:01] VITALS: BMI 30.4
[2020-01-06 09:29] VITALS: BMI 30.3
--- NOTE | 2020-01-09 13:19 | CT_ITS ---
STUDY: CT CHEST WITH CONTRAST REASON FOR EXAM: Male, 74 years old. LUNG CA STAGING RADIATION DOSAGE (If Supplied By Facility): CTDIvol = ( 16.43 ) mGy, DLP = ( 1350.39 ) mGycm TECHNIQUE: Transaxial imaging was performed following intravenous administration of IV 100ML [id number]. Multiplanar coronal and sagittal images were reformatted. Individualized dose optimization techniques were used for this CT. COMPARISON: 10/27/[address] FINDINGS: A left-sided Port-A-Cath the tip is in the atrial caval junction. MA anterior aspect of the left upper lobe there is a focal density that measures 1.7 x 1.8 x 1.3 cm with scarlike or spiculated borders. It is associated with linear band of scarring associated with the pleura. When compared to the prior study October 27, 2019 the same lesion measured 1.6 x 1.4 x 1.6 cm. There appears to be some interval loss of volume of this mass and lesser central nodularity. There is a subtle nodularity that was described on the CT scan of the abdomen that is still present but appears to be possibly associated with a vessel versus a new nodule too small to characterize 2.6 mm nodule. Within the left lung base on this study there is a subtle 3.3 mm nodule or small focal groundglass opacity. Overall there is a pattern of scattered areas of probable air trapping. This is also similar to the prior study. There is a calcified granuloma in the left lower lobe. There is mild to moderate cardiac enlargement. There is a pericardial effusion with fluid in particular adjacent to the aortic arch. An emphysematous 37 the width of this fluid measures 2 cm. When on the prior study at the same level it measured up to 4.5 cm in width which also included fluid in the prevascular space. This is improved since prior study. On coronal view there is still thickening in the left lateral aspect of the prevascular space and/or medial aspect of the left apex. Normal hilar regions. Normal enhanced pulmonary arteries. The ascending thoracic aorta at the level of the pulmonary artery measures 3.5 x 3.6 cm. There are multi-level degenerative changes of the thoracic spine. There is borderline splenomegaly. There is a minimal hernia. CT/Chest WITH Contrast IMPRESSION: Improved mediastinal fluid/lymphadenopathy collection left of midline at the level of the arch. Reduced from a width of 4.5 cm to 2 cm, since prior. Visualized 2 mm nodular density and/or vascular prominence left lower lobe. Left lung base 3 mm nodular density both too small to characterize. Recommend continued follow-up. Slightly smaller volume left apical mass and density. Left-sided Port-A-Cath. Electronically Signed: Shania Chandra MD at 14:58 EDT Tel , Service support ,
--- NOTE | 2020-01-09 13:22 | CT_ITS ---
STUDY: CT ABDOMEN WITH CONTRAST REASON FOR EXAM: Male, 74 years old. LUNG CA STAGING RADIATION DOSAGE (If Supplied By Facility): CTDIvol = ( 16.43 ) mGy, DLP = ( 1350.39 ) mGycm TECHNIQUE: Transaxial images were obtained post I.V. administration of IV 100ML [id number], and oral contrast. Sagittal and coronal images were reconstructed. Individualized dose optimization techniques were used for this CT. COMPARISON: October 27, 2019 CT scan abdomen FINDINGS: There is trace right greater than left lower lobe atelectasis. Similar to the prior study. There is a 2.6 mm nodular density and/or summation of shadows with the vessel and is in better 1 definitively seen on the prior study. There is mild cardiac enlargement. There are partially visualized coronary calcifications. Normal liver. Normal gallbladder and extrahepatic biliary system. The AP diameter of the spleen is 12.8 cm similar to prior study. Normal pancreas. Normal bilateral adrenal glands. There is a 6.4 mm right renal cyst stable since prior study. There is a stable exophytic larger cyst measuring 4 x 4 cm. There is a stable cyst right kidney measuring 1.7 x 1.8 cm there is a stable left renal cyst measuring 1.7 cm. There is a small hiatal hernia. Normal small intestine. There is moderate stool in the visualized colon. There is diverticulosis without visualized diverticulitis. The appendix is visualized and appears normal. Aorta is partially calcified including the takeoff of the bilateral renal arteries. Normal inferior vena cava. Normal retroperitoneum. Normal abdominal wall. There are diffuse degenerative changes of the visualized lumbar spine. CT/Abdomen WITH IV Contrast IMPRESSION: There is a 2.6 mm nodular density partially visualized in the left lung base not definitively seen on prior study which may represent summation of shadows with a vessel or possible early nodule.. Recommend correlation with January 09, 2020 CT scan of the chest findings. Borderline splenomegaly similar to prior study. Stable bilateral renal cysts. Constipation diverticulosis no visualized diverticulitis. Atherosclerotic disease of the aorta Degenerative change of the thoracolumbar spine without visualized evidence of lytic or neoplastic type osteoblastic lesions. Electronically Signed: Shania Chandra MD at 14:47 EDT Tel , Service support ,
== END ==
PROVIDERS: PCP Family Medicine; Referring Provider Nurse Practitioner Family; Visit Provider Nurse Practitioner Family
DX: C34.90 Malignant neoplasm of unspecified part of unspecified bronchus or lung (principal)
CPT/HCPCS: 71260; 74160; Q9967; A4216

== ENCOUNTER → 2020-03-19 | Outpatient (CLI) | payer MEDICARE, SELFPAY ==
[2020-02-29 09:07] VITALS: BMI 30.6
[2020-03-12 08:52] VITALS: BMI 30.4
--- NOTE | 2020-03-19 08:19 | CT_ITS ---
STUDY: CT ABDOMEN WITH CONTRAST REASON FOR EXAM: Stable 1.6 cm cyst in the mid lateral portion of the left kidney., 75 years old. Assess response to treatment, lung cancer with chemotherapy. RADIATION DOSAGE (If Supplied By Facility): CTDIvol = ( 15.98 ) mGy, DLP = ( 1267.68 ) mGycm TECHNIQUE: Transaxial images were obtained post I.V. administration of IV 100mL Isovue-300, and without oral contrast. Sagittal and coronal images were reconstructed. Individualized dose optimization techniques were used for this CT. COMPARISON: Comparison is made with prior examination January 09, 2020. FINDINGS: Minimal increased markings at the lung bases suggestive of scarring. Coronary artery calcification and calcification of the mitral There is decreased attenuation of the liver consistent with steatosis. Normal gallbladder and extrahepatic biliary system. Normal spleen. Normal pancreas. Normal bilateral adrenal glands. Stable bilateral renal cysts. Normal visualized stomach. Normal small intestine. Normal colon. The appendix is visualized and appears normal. There is scattered atherosclerotic calcification of the abdominal aorta, without a demonstrated aneurysm. Normal inferior vena cava. Normal retroperitoneum. Normal abdominal wall. Normal osseous structures. CT/Abdomen WITH IV Contrast IMPRESSION: There is a 3.81 cm x 4.5 cm cyst in the midportion of the kidney. There is also evidence of a 1.4 cm cyst in the anterior lower pole portion of the right kidney. Stable examination. Electronically Signed: Brayan Chaves, at 10:59 EDT , Service support ,
--- NOTE | 2020-03-19 08:19 | CT_ITS ---
STUDY: CT CHEST WITH CONTRAST REASON FOR EXAM: Male, 75 years old. Assess response to treatment, lung cancer with chemotherapy. RADIATION DOSAGE (If Supplied By Facility): CTDIvol = ( 15.98 ) mGy, DLP = ( 1267.68 ) mGycm TECHNIQUE: Transaxial imaging was performed following intravenous administration of IV 100mL Isovue-300. Multiplanar coronal and sagittal images were reformatted. Individualized dose optimization techniques were used for this CT. COMPARISON: Comparison is made with prior examination dated January 09, 2020. FINDINGS: A left-sided portacatheter is seen with the tip at the junction of the superior vena cava and right atrium. The previously seen spiculated nodule in the anterior lateral aspect of the left upper lobe has decreased in size. It presently measures 1.1 cm x 1 cm. Stable mild increased markings at the lung bases suggestive of a scarring. There is no demonstrated pleural abnormality. Coronary artery calcification. Cardiomegaly. The pericardium is unremarkable. Since prior study, there has been decrease in size of the mediastinal lymphadenopathy. Limited regions persist in the region of the aortic arch and root of the descending thoracic aorta. Stable small right hilar lymph node. Normal enhanced pulmonary arteries. Normal aorta arch and descending thoracic aorta. There are multi-level degenerative changes of the thoracic spine. There is no demonstrated abnormality of the visualized upper abdomen. CT/Chest WITH Contrast IMPRESSION: Since prior study, there is been further improvement of the mediastinal lymphadenopathy as well as decrease in size of the left upper lobe nodule. Stable scarring at the lung bases. Electronically Signed: Brayan Chaves, at 10:19 EDT , Service support ,
[2020-03-19] MEDS: 0.9% Saline Lock 10 ML Syringe IV (08:50)
== END | disposition home or self-care (01) ==
LOC: CT 08:19
PROVIDERS: PCP Family Medicine; Referring Provider Internal Medicine Hematology & Oncology; Visit Provider Internal Medicine Hematology & Oncology
DX: C34.90 Malignant neoplasm of unspecified part of unspecified bronchus or lung (principal); C77.0 Secondary and unspecified malignant neoplasm of lymph nodes of head, face and neck; C78.00 Secondary malignant neoplasm of unspecified lung
CPT/HCPCS: 71260; 74160; Q9967; A4216

== ENCOUNTER → 2020-06-27 08:20 | Outpatient (CLI) | payer MEDICARE, SELFPAY ==
[2020-06-13 08:53] VITALS: BMI 30.9
--- NOTE | 2020-06-27 08:21 | CT_ITS ---
STUDY: CT CHEST WITH CONTRAST REASON FOR EXAM: Male, 75 years old. ASSESS CHEMO RESPONSE FOR LUNG CANCER RADIATION DOSAGE (If Supplied By Facility): CTDIvol = ( 16.93 ) mGy, DLP = ( 1393.55 ) mGycm TECHNIQUE: Transaxial imaging was performed following intravenous administration of IV 100mL Isovue-300. Multiplanar coronal and sagittal images were reformatted. Individualized dose optimization techniques were used for this CT. COMPARISON: Comparison is made with prior study dated 03/19/2020. FINDINGS: A left-sided portacatheter is seen with the tip in the superior vena cava. Stable 1.1 cm by 1 cm spiculated nodule in the anterior lateral aspect of the left upper lobe. Stable scarring in the lower lobes. There is a new pleural-based nodule in the lateral aspect of the left lower lobe measuring 1.1 cm. This may represent an area of scarring. There is no demonstrated pleural abnormality. There are calcifications of the coronary arteries. Stable enlarged mediastinal lymph nodes as well as right hilar lymph nodes. Normal hilar regions. Normal enhanced pulmonary arteries. Normal aorta arch and descending thoracic aorta. There are multi-level degenerative changes of the thoracic spine. Fatty infiltration of the liver. CT/Chest WITH Contrast IMPRESSION: Persistent mediastinal and right hilar lymphadenopathy. Stable scarring at the lung bases. Stable spiculated nodule in the anterior lateral aspect of the left upper lobe. New pleural-based nodule in the posterior-lateral aspect of the left lower lobe measuring 1.1 cm. This most likely represents a focal scar. Electronically Signed: Brayan Chaves, at 11:19 EDT , Service support ,
--- NOTE | 2020-06-27 08:21 | CT_ITS ---
STUDY: CT ABDOMEN WITH CONTRAST REASON FOR EXAM: Male, 75 years old. ASSESS CHEMO RESPONSE FOR LUNG CANCER RADIATION DOSAGE (If Supplied By Facility): CTDIvol = ( 16.93 ) mGy, DLP = ( 1393.55 ) mGycm TECHNIQUE: Transaxial images were obtained post I.V. administration of IV 100mL Isovue-300, and oral contrast. Sagittal and coronal images were reconstructed. Individualized dose optimization techniques were used for this CT. COMPARISON: Comparison is made with prior examination dated 03/19/2020. FINDINGS: There is a 1.3 cm right hilar lymph node. Stable minimal scarring at the lung bases. There now is evidence of a 1.4 cm pleural-based nodular density in the lateral aspect of the left lower lobe. This most likely represent cyst focal scarring. Coronary artery calcification. There is decreased attenuation of the liver consistent with steatosis. Normal gallbladder and extrahepatic biliary system. Normal spleen. Normal pancreas. Normal bilateral adrenal glands. Several cysts are seen in the right kidney. The largest measures 3.5 cm x 3.6 cm. Normal left kidney. Normal visualized stomach. Normal small intestine. There are multiple colonic diverticula consistent with diverticulosis. The appendix is visualized and appears normal. There is diffuse atherosclerotic calcification of the abdominal aorta, without a demonstrated aneurysm. Normal inferior vena cava. Normal retroperitoneum. Normal abdominal wall. There are degenerative changes of the visualized lumbar spine. CT/Abdomen WITH IV Contrast IMPRESSION: Small right renal cysts. Stable scarring at the lung bases with new 1.4 cm pleural-based nodule in the lateral aspect of the left lower lobe and this most likely represents scarring. Diffuse fatty infiltration of the liver. Electronically Signed: Brayan Chaves, at 11:16 EDT , Service support ,
[2020-06-27] MEDS: 0.9% Saline Lock 10 ML Syringe IV (08:45)
== END ==
PROVIDERS: PCP Family Medicine; Referring Provider Internal Medicine Hematology & Oncology; Visit Provider Internal Medicine Hematology & Oncology
DX: C34.90 Malignant neoplasm of unspecified part of unspecified bronchus or lung (principal); C77.0 Secondary and unspecified malignant neoplasm of lymph nodes of head, face and neck; C77.1 Secondary and unspecified malignant neoplasm of intrathoracic lymph nodes; C78.00 Secondary malignant neoplasm of unspecified lung
CPT/HCPCS: 71260; 74160; Q9967; A4216

== ENCOUNTER → 2020-10-04 09:44 | Outpatient (CLI) | payer MEDICARE, SELFPAY ==
[2020-09-26 08:55] VITALS: BMI 31.3
--- NOTE | 2020-10-04 09:47 | CT_ITS ---
STUDY: CT CHEST WITH CONTRAST REASON FOR EXAM: Male, 75 years old. ASSESS TREATMENT RESPONSE FOR LUNG CANCER/CHEMO RADIATION DOSAGE (If Supplied By Facility): CTDIvol = ( 18.53 ) mGy, DLP = ( 1573.35 ) mGycm TECHNIQUE: Transaxial imaging was performed following intravenous administration of IV 100mL Isovue-370. Multiplanar coronal and sagittal images were reformatted. Individualized dose optimization techniques were used for this CT. COMPARISON: Comparison is made with prior examination dated 06/27/2020. FINDINGS: A left-sided portacatheter is seen with the tip in the superior vena cava. Stable benign-appearing bilateral axillary lymph nodes. Stable 1.1 semi spiculated nodule in the anterior lateral aspect of the left upper lobe. Stable mild increased markings at the lung bases suggestive of scarring. The previously seen peripheral based spiculated nodule in the left lower lobe has almost completely resolved. There is no demonstrated pleural abnormality. There are calcifications of the coronary arteries. Normal mediastinum. Normal hilar regions. Normal enhanced pulmonary arteries. There is atherosclerotic calcification of the aortic arch . There are multi-level degenerative changes of the thoracic spine. Fatty infiltration of the liver. CT/Chest WITH Contrast IMPRESSION: Stable irregular nodule in the left upper lobe. Mild stable increased markings at the lung bases suggestive of scarring. Almost complete clearing of the previously seen pleural-based nodule in the left lower lobe. Electronically Signed: Brayan Chaves, at 11:54 EST , Service support ,
--- NOTE | 2020-10-04 09:47 | CT_ITS ---
STUDY: CT ABDOMEN WITH CONTRAST REASON FOR EXAM: Male, 75 years old. ASSESS TREATMENT RESPONSE FOR LUNG CANCER/CHEMO RADIATION DOSAGE (If Supplied By Facility): CTDIvol = ( 18.53 ) mGy, DLP = ( 1573.35 ) mGycm TECHNIQUE: Transaxial images were obtained post I.V. administration of IV 100mL Isovue-370, and without oral contrast. Sagittal and coronal images were reconstructed. Individualized dose optimization techniques were used for this CT. COMPARISON: Comparison is made with prior study dated 06/27/2020. FINDINGS: Stable minimal scarring at the lung bases. The previously seen 1.4 cm spiculated pleural-based nodule in the left lower lobe has almost completely cleared at this time. The visualized portions of the heart are within normal limits. There is decreased attenuation of the liver consistent with steatosis. Normal gallbladder and extrahepatic biliary system. Normal spleen. Normal pancreas. Normal bilateral adrenal glands. Stable bilateral renal cysts. Normal visualized stomach. Normal small intestine. Moderate amount of fecal material is seen throughout the colon. The appendix is visualized and appears normal. There is diffuse atherosclerotic calcification of the abdominal aorta, without a demonstrated aneurysm. Normal inferior vena cava. Normal retroperitoneum. There is a small umbilical hernia containing fat. There are diffuse degenerative changes of the visualized lumbar spine. CT/Abdomen WITH IV Contrast IMPRESSION: Minimal residual linear scarring at the lung bases. The previously seen spiculated pleural-based nodule in the left lower lobe has almost completely resolved. Fatty infiltration of the liver. Electronically Signed: Brayan Chaves, at 11:51 EST , Service support ,
== END ==
PROVIDERS: PCP Family Medicine; Referring Provider Internal Medicine Hematology & Oncology; Visit Provider Internal Medicine Hematology & Oncology
DX: C34.12 Malignant neoplasm of upper lobe, left bronchus or lung (principal); C77.0 Secondary and unspecified malignant neoplasm of lymph nodes of head, face and neck
CPT/HCPCS: 71260; 74160; Q9967

== ENCOUNTER → 2020-12-12 10:53 | Outpatient (CLI) | payer MEDICARE, SELFPAY ==
[2020-11-28 08:57] VITALS: BMI 32.4
--- NOTE | 2020-12-12 10:59 | VDLE_ITS ---
Reason For Study: LEFT ANKLE SWELLING RIGHT LEFT CFV is compressible, spontaneous, phasic, GSV is normal. competent and demonstrates normal CFV is compressible, spontaneous, phasic, augmentation. competent, and demonstrates normal Procedure augmentation. This is a venous duplex using B-mode, color FV is compressible, spontaneous, phasic, flow and spectral Doppler. competent and demonstrates normal The exam was diagnostic. augmentation. A preliminary report was called and/or faxed POP V is compressible, spontaneous, phasic, to Dr. Zaldivar @ 11:15 am @ [phone]. competent and demonstrates normal augmentation. T/P Trunk is compressible. PTV is compressible. LT PerV is compressible. Interpretation Summary Deep veins of the left lower extremity are patent and compressible segmentally. There is no evidence of left lower extremity deep vein thrombosis. Valvular competence appears intact within the proximal deep venous system on the left . The left great saphenous vein appears patent and compressible segmentally. Ordering Physician: Isrrael Zaldivar Referring Physician: Isrrael Zaldivar Performed By: Jaqueline Vega, JANIECS, RVT
== END ==
PROVIDERS: PCP Family Medicine; Referring Provider Family Medicine; Visit Provider Family Medicine
DX: M25.472 Effusion, left ankle (principal); M79.89 Other specified soft tissue disorders
CPT/HCPCS: 93971

== ENCOUNTER → 2021-01-01 07:40 | Outpatient (CLI) | payer MEDICARE, SELFPAY ==
[2020-12-19 08:45] VITALS: BMI 33.0
[2020-12-31 08:20] VITALS: BMI 33.0
--- NOTE | 2021-01-01 07:47 | CT_ITS ---
STUDY: CT CHEST, ABDOMEN T PELVIS WITH CONTRAST REASON FOR EXAM: Male, 75 years old. LUNG CANCER RESPONSE TO TREATMENT RADIATION DOSAGE (If Supplied By Facility): CTDIvol = ( 18.35 ) mGy, DLP = ( 1696.32 ) mGycm TECHNIQUE: Transaxial imaging was performed following intravenous administration of IV 100mL Isovue-300. Individualized dose optimization techniques were used for this CT. COMPARISON: Comparison is made with prior examination dated 10/04/2020. FINDINGS: CHEST A left-sided portacatheter is seen with the tip in the superior vena cava. Stable bilateral benign-appearing axillary lymph nodes. Stable 1.1 cm spiculated nodule in the anterior lateral aspect of the left upper lobe as seen on axial image #32 and coronal image #110. This most likely represents an area of scarring. Stable mild scarring at the lung bases suggestive of scarring. The previously seen nodular density in the left lower lobe has almost completely resolved. There is no demonstrated pleural abnormality. There are calcifications of the coronary arteries. Normal mediastinum. Normal hilar regions. Normal unenhanced pulmonary arteries. There is atherosclerotic tortuosity of the aortic arch and descending thoracic aorta. There are multi-level degenerative changes of the thoracic spine. Fatty infiltration of the liver. ABDOMEN The visualized lung bases are unremarkable. The visualized portions of the heart are within normal limits. Normal liver. Normal gallbladder and extrahepatic biliary system. Normal spleen. Normal pancreas. Normal bilateral adrenal glands. Stable cyst in the right kidney. The largest measures 2.9 cm. Stable 1.7 cm cyst in the lateral aspect of the left kidney. Normal visualized stomach. Normal small intestine. There are multiple colonic diverticula consistent with diverticulosis. The appendix is visualized and appears normal. There is diffuse atherosclerotic calcification of the abdominal aorta, without a demonstrated aneurysm. Normal inferior vena cava. Normal retroperitoneum. Normal abdominal wall. Normal osseous structures. PELVIS Normal urinary bladder. Normal visualized small intestine. Normal visualized colon. There is no pelvic fluid. There is no pelvic lymphadenopathy or mass lesion. Normal visualized pelvic arteries. Normal abdominal wall. There are diffuse degenerative changes of the visualized lumbar spine. CT/CT Chest AND Abd W/ Contrast IMPRESSION: Stable examination. Findings suggestive for scarring in the left upper lobe as well as at both lung bases. Fatty infiltration of the liver. Bilateral renal cysts. Electronically Signed: Brayan Chaves MD at 10:07 EDT , Service support ,
[2021-01-01] MEDS: 0.9% Saline Lock 10 ML Syringe IV (08:00)
== END ==
PROVIDERS: PCP Family Medicine; Referring Provider Internal Medicine Hematology & Oncology; Visit Provider Internal Medicine Hematology & Oncology
DX: C34.90 Malignant neoplasm of unspecified part of unspecified bronchus or lung (principal); C77.1 Secondary and unspecified malignant neoplasm of intrathoracic lymph nodes; C77.0 Secondary and unspecified malignant neoplasm of lymph nodes of head, face and neck
CPT/HCPCS: 71260; 74160; Q9967; A4216

== ENCOUNTER → 2021-03-27 07:21 | Outpatient (CLI) | payer MEDICARE, SELFPAY ==
[2021-03-13 09:52] VITALS: BMI 32.6
[2021-03-13 10:27] VITALS: BMI 32.6
--- NOTE | 2021-03-27 07:27 | CT_ITS ---
STUDY: CT CHEST T ABDOMEN WITH CONTRAST REASON FOR EXAM: Male, 76 years old. LUNG CANCER ON TREATMENT -- RESPONSE TO TREATMENT RADIATION DOSAGE (If Supplied By Facility): CTDIvol = ( 18.31 ) mGy, DLP = ( 1666.41 ) mGycm TECHNIQUE: Transaxial imaging was performed following intravenous administration of IV 100mL Isovue-300. Individualized dose optimization techniques were used for this CT. COMPARISON: Comparison is made with prior examination dated 01/01/2021. FINDINGS: A left-sided portacatheter is seen with the tip in the superior vena cava. CHEST Stable 1.3 cm spiculated nodule in the anterior lateral aspect of the left upper lobe as seen on axial image #36. This most likely low-density focal liver scarring. Stable mild scarring is also seen at the lung bases suggestive of scarring. There is no demonstrated pleural abnormality. There are calcifications of the coronary arteries. Normal mediastinum. Normal hilar regions. Normal unenhanced pulmonary arteries. Normal aorta arch and descending thoracic aorta. There are multi-level degenerative changes of the thoracic spine. There is no demonstrated abnormality of the visualized upper abdomen. ABDOMEN Normal liver. Normal gallbladder and extrahepatic biliary system. Normal spleen. Normal pancreas. Normal bilateral adrenal glands. Stable right renal cysts. The largest cyst is in the lateral midportion measuring 2.6 cm. Stable left renal cysts. The larger measures 1.7 cm. Normal visualized stomach. Normal small intestine. There are multiple colonic diverticula consistent with diverticulosis. The appendix is visualized and appears normal. There is diffuse atherosclerotic calcification of the abdominal aorta, without a demonstrated aneurysm. Normal inferior vena cava. Normal retroperitoneum. Normal abdominal wall. There are diffuse degenerative changes of the visualized lumbar spine. CT/CT Chest AND Abd W/ Contrast IMPRESSION: Stable examination. Electronically Signed: Brayan Chaves MD at 8:59 EDT , Service support ,
[2021-03-27] MEDS: 0.9% Saline Lock 10 ML Syringe IV (07:50)
== END ==
PROVIDERS: PCP Family Medicine; Referring Provider Internal Medicine Hematology & Oncology; Visit Provider Internal Medicine Hematology & Oncology
DX: C34.90 Malignant neoplasm of unspecified part of unspecified bronchus or lung (principal)
CPT/HCPCS: 71260; 74160; Q9967; A4216

== ENCOUNTER → 2021-04-18 10:51 | Outpatient (CLI) | payer MEDICARE, SELFPAY ==
[2021-04-05 08:52] VITALS: BMI 32.8
--- NOTE | 2021-04-18 10:52 | ECHODONC_ITS ---
Reason For Study: Murmur Procedure This was a 2D Doppler, Color Flow transthoracic echocardiogram. Myocardial strain analysis was performed in this exam to aid in the assessment of cardiac function. Exam performed in department. Left Ventricle Normal LV size. Left ventricular systolic function is normal. The estimated ejection fraction is 55 %. Stage 1 diastolic dysfunction. There are regional wall motion abnormalities as specified. Infero- Basal: Akinetic. Posterior-Basal: Hypokinetic. Basal inferoseptal: Hypokinetic. Right Ventricle Normal RV size. Normal systolic function. Atria Normal left atrium. Normal right atrium. Mitral Valve There is mild to moderate mitral annular calcification. Trivial eccentric mitral valve insufficiency. Tricuspid Valve Normal tricuspid valve. Mild tricuspid valve insufficiency. Pulmonary artery systolic pressure is 24 mmHg. Aortic Valve Trisinus/trileaflet aortic valve. Mild focal aortic valve calcification. Mild (1+) eccentric aortic valve insufficiency. Pulmonic Valve Normal pulmonic valve. Great Vessels Normal aortic root. The pulmonary artery is normal size. Normal inferior vena cava. Pericardium/Pleural No pericardial effusion. MMode/2D Measurements & Calculations LVIDd: 4.3 cm IVSd: 1.2 cm LVOT diam: 2.1 cm LVIDs: 3.0 cm LVPWd: 1.3 cm LVOT area: 3.3 cm2 RVDd: 3.0 cm FS: 30.3 % Ao root diam: 3.9 cm LAV(MOD-bp): 72.6 ml LVAd ap4: 31.6 cm2 LAV(MOD-bp) Indexed: 36.1 ml/m2 LVLd ap4: 8.1 cm LAV(MOD-sp2): 77.0 ml EDV(MOD-sp4): 102.3 ml LAV(MOD-sp4): 68.2 ml EDV(sp4-el): 104.5 ml LVAs ap4: 19.4 cm2 LVLs ap4: 6.8 cm ESV(MOD-sp4): 46.4 ml ESV(sp4-el): 47.2 ml EF(MOD-sp4): 54.6 % EF(sp4-el): 54.9 % LVAd ap2: 32.3 cm2 SV(MOD-sp4): 55.9 ml SV(MOD-sp2): 45.9 ml LVLd ap2: 7.9 cm EDV(MOD-sp2): 109.8 ml EDV(sp2-el): 111.5 ml LVAs ap2: 23.1 cm2 LVLs ap2: 7.8 cm ESV(MOD-sp2): 63.8 ml ESV(sp2-el): 58.2 ml EF(MOD-sp2): 41.9 % SV(sp4-el): 57.4 ml LA dimension(2D): 3.8 cm LA A4 area: 22.4 cm2 RA A4 area: 13.4 cm2 Doppler Measurements & Calculations MV E max tremayne: 109.3 cm/sec Lat Peak E' Tremayne: 9.8 cm/sec Med Peak E' Tremayne: 5.6 cm/sec MV A max tremayne: 115.0 cm/sec E/E' lat: 11.1 E/E' med: 19.7 MV E/A: 0.95 Ao V2 max: 223.1 cm/sec AI max tremayne: 340.0 cm/sec LV V1 max: 142.6 cm/sec Ao max P.9 mmHg AI max P.2 mmHg LV V1 max P.1 mmHg Ao V2 mean: 166.4 cm/sec AI dec slope: 166.3 cm/sec2 LV V1 mean P.2 mmHg Ao mean P.9 mmHg AI P1/2t: 598.9 msec LV V1 mean: 109.7 cm/sec Ao V2 VTI: 49.1 cm LV V1 VTI: 31.9 cm PRETTY(I,D): 2.2 cm2 PRETTY(V,D): 2.1 cm2 SV(LVOT): 106.8 ml PA V2 max: 101.6 cm/sec TR max tremayne: 228.4 cm/sec TR max P.9 mmHg ECHO/ONC Echo Complete Interpretation Summary Normal LV size. Left ventricular systolic function is normal. The estimated ejection fraction is 55 %. Stage 1 diastolic dysfunction. There are regional wall motion abnormalities as specified. The global longitudinal strain is normal. The global longitudinal strain = -17. 3 % (normal). Ordering Physician: Jeremiah Chauhan Referring Physician: Lisandro Zaldivar MD Performed By: Cait Small [facility]
== END ==
PROVIDERS: PCP Family Medicine; Referring Provider Internal Medicine Cardiovascular Disease; Visit Provider Internal Medicine Cardiovascular Disease
DX: I34.0 Nonrheumatic mitral (valve) insufficiency (principal)
CPT/HCPCS: 93306; 93356

== ENCOUNTER → 2021-04-24 09:56 | Outpatient (CLI) | payer MEDICARE, SELFPAY ==
[2021-04-24 09:13] VITALS: BMI 32.8
--- NOTE | 2021-04-24 09:58 | VDUE_ITS ---
Reason For Study: SWELLING Right Proximal Left Proximal Right jugular vein is spontaneous, widely Left jugular vein is spontaneous, widely patent, phasic, with no intraluminal patent, phasic, with no intraluminal echogenicity noted. echogenicity noted. Right subclavian vein is spontaneous, widely Left subclavian vein is spontaneous, widely patent, phasic, with no intraluminal patent, phasic, with no intraluminal echogenicity noted. echogenicity noted. Right Lower Arm Left Arm Right radial vein is compressible. Left axillary vein is spontaneous, patent, Right ulnar vein is compressible. phasic, competent, compressible and Right Arm demonstrates augmentation. Right axillary vein is spontaneous, patent, Left brachial vein is compressible. phasic, competent, compressible and Left cephalic vein is compressible. demonstrates augmentation. Left basilic vein is compressible. Right brachial vein is compressible. Left Lower Arm Right cephalic vein is compressible. Left radial vein is compressible. Right basilic vein is compressible. Left ulnar vein is compressible. VL/Venous Duplex US - [place] Extrem Interpretation Summary No evidence for acute deep venous thrombosis bilateral upper extremities with p atent and compressible bilateral cephalic and basilic veins. Ordering Physician: Santi Liu Referring Physician: TIEN RODRIGUEZ Performed By: Roxane Dennis, JANIECS, RVT ?
== END ==
PROVIDERS: PCP Family Medicine; Referring Provider Internal Medicine Hematology & Oncology; Visit Provider Internal Medicine Hematology & Oncology
DX: R60.0 Localized edema (principal); M79.89 Other specified soft tissue disorders; R60.9 Edema, unspecified
CPT/HCPCS: 93970

== ENCOUNTER 2021-04-29 07:48 | Day surgery (SDC) | payer MEDICARE, SELFPAY ==
[2021-04-05 08:52] VITALS: BMI 32.8
[2021-04-24 09:44] VITALS: BMI 32.8
[2021-04-26 08:29] VITALS: BMI 32.8
--- NOTE | 2021-04-29 09:14 | CL.D_ITS ---
Patient Name: RAJAN ROSEN Study Date: 04/29/2021 Performing: Jeremiah Chauhan MD Ht: 66 inches 168 cm : 1945 Wt: 203.1 lbs 92 kg Age: 76 Gender: male BSA: 2.02 PROCEDURE(S) PERFORMED XV08-QUE/COR/LV CLINICAL PROFILE AND INDICATIONS Indications: Suspected CAD Heart Failure: None Stress/Imaging Stress/Image Study Performed: No CAD Presentations: No Sxs, no angina. CONCLUSIONS Totally occluded right coronary artery with [id number] collaterals and preserved left ventricular systolic function with inferobasal akinesis. RECOMMENDATIONS Medical therapy DESCRIPTION OF PROCEDURE The patient arrived to the procedure lab. The risks and benefits of the procedure as well as a full d escription of our services here and current unavailability of surgical backup were fully explained to the patient and/or their significant other prior to the catheterization. The Timeout was completed, verifying the correct patient and procedure. The patient's procedural site was prepped and draped in the usual fashion. Local anesthetic was given subcutaneously to right radial region with Lidocaine 2% . Using a modified Seldinger technique, arterial access was obtained via the right radial artery, a 6 Fr sheath was inserted. Right Coronary Artery selective angiography was then performed in multiple v iews using a 5 Fr. 4.0 Sherman catheter. Left Coronary Artery selective angiography was performed in mu ltiple views using a 5 Fr. 4.0 Sherman catheter. Left Ventriculography was performed in COLLAZO projection using a 5 Fr. Pigtail catheter. LV to AO pullback pressures were then recorded.The arterial sheath was pulled and a TR Band was applied for hemostasis w/ 14ml air CORONARY ANGIOGRAPHY DOMINANCE: Right Dominant LEFT HEART ASSESSMENT Left Ventricular Ejection Fraction: by LV Gram 55 % Inferior Basal Akinesis Normal Left Ventricular systolic function LEFT MAIN: Mild calcification, No significant disease noted LEFT ANTERIOR DESCENDING ARTERY: Mild luminal irregularities CIRCUMFLEX ARTERY: Mild luminal irregularities RIGHT CORONARY ARTERY: OSTIAL RCA: is occluded COLLATERAL FLOW: Collateral flow from Left to Right VALVE FINDINGS: Aortic Valve Stenosis - mild COMPLICATIONS No Complications PROCEDURE MEDICATIONS Versed 1 mg IV Fentanyl 50 mcg IV Oxygen: 2 L/min via nasal cannula SUMMARY OF HEMODYNAMIC DATA Time AIR REST ECG 08:13:47 Art 174/75 (117) 08:53:58 AO 136/78 (103) SA 08:56:48 LV 159/12, 23 09:02:16 LV 159/13, 25 09:02:24 LV 154/16, 25 09:03:50 LV 148/18, 27 09:03:57 LVp 150/18, 32 09:04:00 AOp 150/78 (110) 09:04:06 Signed By Jeremiah Chauhan MD On 04/29/2021 9:13:22 AM Jeremiah Chauhan MD
== END 2021-04-29 11:20 | disposition home or self-care (01) ==
LOC: CLSP 07:49
PROVIDERS: PCP Family Medicine; Referring Provider Internal Medicine Cardiovascular Disease; Visit Provider Internal Medicine Cardiovascular Disease
DX: I35.0 Nonrheumatic aortic (valve) stenosis (principal); I25.82 Chronic total occlusion of coronary artery; I10 Essential (primary) hypertension; C34.90 Malignant neoplasm of unspecified part of unspecified bronchus or lung; C77.0 Secondary and unspecified malignant neoplasm of lymph nodes of head, face and neck; C77.1 Secondary and unspecified malignant neoplasm of intrathoracic lymph nodes; E78.5 Hyperlipidemia, unspecified; E03.9 Hypothyroidism, unspecified; E66.9 Obesity, unspecified; Z79.82 Long term (current) use of aspirin; Z79.890 Hormone replacement therapy; Z79.899 Other long term (current) drug therapy
CPT/HCPCS: 93458; 99152; 99153; J7040; Q9967; A4216; C1769; C1894

== ENCOUNTER → 2021-07-10 08:16 | Outpatient (CLI) | payer MEDICARE, SELFPAY ==
--- NOTE | 2021-07-10 08:17 | CT_ITS ---
STUDY: CT CHEST T ABDOMEN WITH CONTRAST REASON FOR EXAM: Male, 76 years old. NSCLC RESPONSE TO TREATMENT RADIATION DOSAGE (If Supplied By Facility): CTDIvol = ( 17.37 ) mGy, DLP = ( 1530.48 ) mGycm TECHNIQUE: Transaxial imaging was performed following intravenous administration of IV 100mL Isovue-370. Individualized dose optimization techniques were used for this CT. COMPARISON: Comparison is made with prior study dated 03/27/2021. FINDINGS: CHEST A left-sided portacatheter is seen with the tip in the superior vena cava. Stable 1.4 cm slightly soft pixilated nodular density in the anterior lateral aspect of the left upper lobe as seen on axial image #36. This most likely represents a focal area of scarring. Stable mild degree of increased markings at the lung bases suggest some mild linear scarring. There is no demonstrated pleural abnormality. There are calcifications of the coronary arteries. Stable 1.2 cm focal density in the anterior mediastinum adjacent to the aortic arch. This most likely represent an area of scarring. Normal hilar regions. Normal unenhanced pulmonary arteries. Normal aorta arch and descending thoracic aorta. There are multi-level degenerative changes of the thoracic spine. There is no demonstrated abnormality of the visualized upper abdomen. ABDOMEN Normal liver. Normal gallbladder and extrahepatic biliary system. Normal spleen. Normal pancreas. Normal bilateral adrenal glands. 2.5 cm cyst in the anterior superior aspect of the right kidney. 1.4 cm cyst in the lateral midportion of the left kidney. Normal visualized stomach. Normal small intestine. There are multiple colonic diverticula consistent with diverticulosis. The appendix is visualized and appears normal. There is diffuse atherosclerotic calcification of the abdominal aorta and its major visceral branches, without a demonstrated aneurysm. Normal inferior vena cava. Normal retroperitoneum. Normal abdominal wall. There are diffuse degenerative changes of the visualized lumbar spine. CT/CT Chest AND Abd W/ Contrast IMPRESSION: Stable examination. Electronically Signed: Brayan Chaves MD at 9:54 EDT , Service support ,
[2021-07-10] MEDS: 0.9% Saline Lock 10 ML Syringe IV (08:41)
== END ==
PROVIDERS: PCP Family Medicine; Referring Provider Internal Medicine Hematology & Oncology; Visit Provider Internal Medicine Hematology & Oncology
DX: C34.12 Malignant neoplasm of upper lobe, left bronchus or lung (principal)
CPT/HCPCS: 71260; 74160; Q9967

== ENCOUNTER 2021-10-23 13:28 | Outpatient (CLI) | payer MEDICARE, SELFPAY ==
--- NOTE | 2021-10-23 13:38 | CT_ITS ---
STUDY: CT CHEST T ABDOMEN WITH CONTRAST REASON FOR EXAM: Male, 76 years old. NSCLC. Follow-up. RADIATION DOSAGE (If Supplied By Facility): CTDIvol = ( 20.18 ) mGy, DLP = ( 1691.05 ) mGycm TECHNIQUE: Transaxial imaging was performed following intravenous administration of IV 100mL Isovue-370. Individualized dose optimization techniques were used for this CT. COMPARISON: Comparison is made with prior examination dated 07/10/2021. FINDINGS: CHEST A left-sided judith catheter seen with the tip in the superior vena cava. Stable linear scar in the anterior lateral aspect of the left upper lobe. Stable linear scarring in the posterior aspect of the left upper lobe. There is no demonstrated pleural abnormality. There are calcifications of the coronary arteries. Stable soft tissue density in the precarinal space as well as in the region of the aortopulmonary window. This may represent mild degree of residual adenopathy. Normal hilar regions. Normal unenhanced pulmonary arteries. Normal aorta arch and descending thoracic aorta. There are multi-level degenerative changes of the thoracic spine. Diffuse fatty infiltration of the liver. ABDOMEN Fatty infiltration of liver. Normal gallbladder and extrahepatic biliary system. Normal spleen. Normal pancreas. Normal bilateral adrenal glands. Stable 2.5 cm cyst in the anterior lateral aspect of the right kidney. Stable 1.4 cm cyst in the lateral aspect of the left kidney. Normal visualized stomach. Normal small intestine. There are multiple colonic diverticula consistent with diverticulosis. The appendix is visualized and appears normal. There is diffuse atherosclerotic calcification of the abdominal aorta, without a demonstrated aneurysm. Normal inferior vena cava. Normal retroperitoneum. Normal abdominal wall. There are diffuse degenerative changes of the visualized lumbar spine. CT/CT Chest AND Abd W/ Contrast IMPRESSION: Stable examination. Electronically Signed: Brayan Chaves MD at 14:44 EST , Service support ,
[2021-10-23] MEDS: 0.9% Saline Lock 10 ML Syringe IV ×2 (13:45→13:50)
== END 2021-10-23 23:59 | disposition short-term general hospital (02) ==
LOC: CT 13:29
PROVIDERS: PCP Family Medicine; Referring Provider Nurse Practitioner Family; Visit Provider Nurse Practitioner Family
DX: C34.12 Malignant neoplasm of upper lobe, left bronchus or lung (principal)
CPT/HCPCS: 71260; 74160; J7040; Q9967; A4216

== ENCOUNTER 2021-12-30 08:41 | Outpatient (CLI) | payer MEDICARE, SELFPAY ==
[2021-12-30 10:19] LABS: Cholesterol 119 mg/dL (200); High Density Lipoprotein 42 mg/dL; Thyroid Stim Hormone (TSH) 4.75 uIU/mL (0.358-3.74); Triglycerides 95 mg/dL; Very Low Density Lipoprotein 19 mg/dL (5-40)
== END 2021-12-30 23:59 | disposition home or self-care (01) ==
LOC: MFPLAB 08:41
PROVIDERS: PCP Family Medicine; Referring Provider Family Medicine; Visit Provider Family Medicine
DX: E03.9 Hypothyroidism, unspecified (principal)
CPT/HCPCS: 36415; 80061; 84443

== ENCOUNTER 2022-01-20 13:23 | Outpatient (CLI) | payer MEDICARE, SELFPAY ==
--- NOTE | 2022-01-20 13:30 | CT_ITS ---
STUDY: CT CHEST T ABDOMEN WITH CONTRAST REASON FOR EXAM: Male, 76 years old. Metastatic NSCLC; assess response to treatment RADIATION DOSAGE (If Supplied By Facility): CTDIvol = ( 19.48 ) mGy, DLP = ( 1671.24 ) mGycm TECHNIQUE: Transaxial imaging was performed following intravenous administration of IV 100mL Isovue-300. Individualized dose optimization techniques were used for this CT. COMPARISON: Comparison is made with prior examination dated 10/23/2021. FINDINGS: CHEST A left-sided judith catheter is seen with the tip in the superior vena cava. Stable linear scar in the anterior lateral aspect of the left upper lobe. Stable linear scar in the posterior aspect of the left upper lobe adjacent to the left major fissure. Stable mild increased markings at the lung bases suggestive of bibasilar scarring. There is no demonstrated pleural abnormality. There are mild calcifications of the coronary arteries. Stable mild degree of soft tissue prominence in the precarinal space as well as in the aortopulmonary window anteriorly. Normal hilar regions. Normal unenhanced pulmonary arteries. There is atherosclerotic calcification of the aortic arch with tortuosity and elongation of the aortic arch and descending thoracic aorta. There are multi-level degenerative changes of the thoracic spine. ABDOMEN Mild degree of bibasilar linear scarring. Coronary artery calcification. There is decreased attenuation of the liver consistent with steatosis. Normal gallbladder and extrahepatic biliary system. Normal spleen. Normal pancreas. Normal bilateral adrenal glands. Stable 2.5 some air cyst in the anterior lateral aspect of the right kidney. Stable 1.4 some assist in the lateral aspect of the left kidney. Normal left kidney. Normal visualized stomach. Normal small intestine. There are multiple colonic diverticula consistent with diverticulosis. There is non-visualization of the appendix. There is diffuse atherosclerotic calcification of the abdominal aorta, without a demonstrated aneurysm. Normal inferior vena cava. Normal retroperitoneum. Normal abdominal wall. There are diffuse degenerative changes of the visualized lumbar spine. CT/CT Chest AND Abd W/ Contrast IMPRESSION: Stable examination. Electronically Signed: Brayan Chaves MD at 8:46 EDT ,
== END 2022-01-20 23:59 | disposition home or self-care (01) ==
PROVIDERS: PCP Family Medicine; Referring Provider Nurse Practitioner Family; Visit Provider Nurse Practitioner Family
DX: C34.12 Malignant neoplasm of upper lobe, left bronchus or lung (principal); C79.9 Secondary malignant neoplasm of unspecified site
CPT/HCPCS: 71260; 74160; Q9967; A4216

== ENCOUNTER → 2022-03-05 | Outpatient (CLI) | payer MEDICARE, SELFPAY ==
[2022-03-05 15:38] LABS: Thyroid Stim Hormone (TSH) 3.18 uIU/mL (0.358-3.74)
== END | disposition home or self-care (01) ==
LOC: MFPLAB 11:44
PROVIDERS: PCP Family Medicine; Referring Provider Family Medicine; Visit Provider Family Medicine
DX: E03.9 Hypothyroidism, unspecified (principal)
CPT/HCPCS: 36415; 84443

== ENCOUNTER 2022-05-06 13:46 | Outpatient (CLI) | payer MEDICARE, SELFPAY ==
--- NOTE | 2022-05-06 13:48 | CT_ITS ---
STUDY: CT CHEST T ABDOMEN WITH CONTRAST REASON FOR EXAM: Male, 77 years old. Assess response to treatment;. Non-small cell lung carcinoma. Patient is on chemotherapy. IV contrast only RADIATION DOSAGE (If Supplied By Facility): CTDIvol = ( 20.17 ) mGy, DLP = ( 1705.09 ) mGycm TECHNIQUE: Transaxial imaging was performed following intravenous administration of IV 100mL Isovue-300. Multiplanar coronal and sagittal images were reformatted. Individualized dose optimization techniques were used for this CT. COMPARISON: Comparison is made with prior study dated 01/20/2022. FINDINGS: CHEST A left-sided Port-A-Cath is seen with the tip in the superior vena cava. Stable focal linear scar in the anterior lateral aspect of the left upper lobe as seen on axial image #34. Stable linear scar in the posterolateral aspect of the left upper lobe adjacent to the left major fissure. Stable mild linear scarring at the lung bases. There is no demonstrated pleural abnormality. There are calcifications of the coronary arteries. Normal mediastinum. Normal hilar regions. Normal unenhanced pulmonary arteries. There is atherosclerotic calcification of the aortic arch. There are multi-level degenerative changes of the thoracic spine. Small sliding hiatal hernia. ABDOMEN There is decreased attenuation of the liver consistent with steatosis. Normal gallbladder and extrahepatic biliary system. Normal spleen. Normal pancreas. Normal bilateral adrenal glands. Stable 2.5 cm cyst in the lateral inferior aspect of the right kidney as well as smaller cysts in the upper midportion of the right kidney. Stable 2 cm cyst in the lateral aspect of the left kidney. Normal visualized stomach. Normal small intestine. There are multiple colonic diverticula consistent with diverticulosis. There is non-visualization of the appendix. There is diffuse atherosclerotic calcification of the abdominal aorta, without a demonstrated aneurysm. Normal inferior vena cava. Normal retroperitoneum. Normal abdominal wall. There are diffuse degenerative changes of the visualized lumbar spine. CT/CT Chest AND Abd W/ Contrast IMPRESSION: Stable examination. Electronically Signed: Brayan Chaves MD at 14:44 EDT ,
[2022-05-06] MEDS: 0.9% Saline Lock 10 ML Syringe IV (14:00)
== END 2022-05-06 23:59 | disposition home or self-care (01) ==
PROVIDERS: PCP Family Medicine; Referring Provider Nurse Practitioner Family; Visit Provider Nurse Practitioner Family
DX: C34.12 Malignant neoplasm of upper lobe, left bronchus or lung (principal); C77.0 Secondary and unspecified malignant neoplasm of lymph nodes of head, face and neck; C78.00 Secondary malignant neoplasm of unspecified lung; C34.90 Malignant neoplasm of unspecified part of unspecified bronchus or lung
CPT/HCPCS: 71260; 74160; J7040; Q9967; A4216

== ENCOUNTER → 2022-07-30 | Outpatient (CLI) | payer MEDICARE, SELFPAY ==
--- NOTE | 2022-07-30 08:20 | CT_ITS ---
STUDY: CT CHEST T ABDOMEN WITH CONTRAST REASON FOR EXAM: Male, 77 years old. Known lung cancer, follow-up RADIATION DOSAGE (If Supplied By Facility): CTDIvol = ( 18.48 ) mGy, DLP = ( 1522.24 ) mGycm TECHNIQUE: Transaxial imaging was performed following intravenous administration of IV 100mL Isovue-300. Individualized dose optimization techniques were used for this CT. COMPARISON: 05/06/2022 FINDINGS: CHEST Lung windows show stable linear scarring in the left upper lobe and in the right middle lobe. Nonspecific pleural thickening in both hemithoraces is unchanged. No new suspicious noncalcified mass or nodule or organized infiltrate. Soft tissue windows show stable appearance of a left port. Normal appearing thyroid. No suspicious axillary adenopathy. Normal heart and pericardium. There are calcifications of the coronary arteries. Normal mediastinum. Normal hilar regions. Normal unenhanced pulmonary arteries. Peripheral calcifications in the thoracic aorta. There are multi-level degenerative changes of the thoracic spine. ABDOMEN There is decreased attenuation of the liver consistent with steatosis. Normal gallbladder and extrahepatic biliary system. Normal spleen. Normal pancreas. Normal bilateral adrenal glands. No obstructive uropathy, or suspicious solid renal lesions, stable bilateral simple renal cysts. No specific follow-up needed. Normal visualized stomach. Normal small intestine. Retained stool noted throughout the colon with scattered colonic diverticula, no CT evidence of acute diverticulitis. The appendix is visualized and appears normal. Findings seen on axial image 78 There is diffuse atherosclerotic calcification of the abdominal aorta, without a demonstrated aneurysm. Normal inferior vena cava. Normal retroperitoneum. Normal abdominal wall. There are diffuse degenerative changes of the visualized lumbar spine. CT/CT Chest AND Abd W/ Contrast IMPRESSION: Stable nonspecific pleural thickening in both hemithoraces with linear fibrotic scarring and atelectasis. No suspicious noncalcified mass or nodule, or organized infiltrate. No change since the previous study. Calcified coronary vessels No suspicious adenopathy Fatty liver Stable simple renal cysts, no specific follow-up needed Diverticulosis Degenerative bony changes Electronically Signed: Wellington Lemon MD at 10:10 EDT ,
== END | disposition home or self-care (01) ==
PROVIDERS: PCP Family Medicine; Referring Provider Internal Medicine Hematology & Oncology; Visit Provider Internal Medicine Hematology & Oncology
DX: C34.90 Malignant neoplasm of unspecified part of unspecified bronchus or lung (principal)
CPT/HCPCS: 71260; 74160; Q9967

== ENCOUNTER 2022-09-07 11:58 | Emergency (ER) | payer MEDICARE, SELFPAY ==
[2022-09-07 12:01] VITALS: BP 137/61; PULSE 87; RESP 17; TEMP 37.3; O2SAT 97; BMI 34.2
--- NOTE | 2022-09-07 12:35 | EDS_ITS ---
HPI History of Present Illness Chief Complaint: Cough Detail of Chief Complaint: Left lower rib cage pain after coughing. Informant: patient and spouse/S.O. Onset/Context/Timing Onset: Today and Yesterday Context: Sudden Onset Timing: Continuous Maximum Severity: Moderate Narrative Narrative: 77-year-old male history of lung cancer undergoing chemotherapy. CAD and hypertension. URI symptoms yesterday. After coughing he had a left lower lateral rib cage pain. No fall or trauma. No hemoptysis. Pain is worse with moving. Not pleuritic so much. No shortness of breath. No fever or chills. Had a negative COVID test at home yesterday. Prior similar symptoms: No Recent Illness/Hospitalization: No PFSH PFSH Medical History Anemia Atherosclerotic heart disease of [place] coronary artery without angina pectoris Bacteremia (12/21/19) Bilateral lower leg cellulitis Chemotherapy management, encounter for Edema of extremities Elevated liver enzymes Encounter for adjustment and management of vascular access device Encounter for chemotherapy management Encounter for education Essential (primary) hypertension HLD (hyperlipidemia) Hoarseness of voice Hypothyroidism Immunotherapy encounter Impaired glucose tolerance Localized swelling, mass and lump, neck 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 Nonrheumatic aortic (valve) stenosis Obesity Pneumothorax, left Primary lung cancer Rash Home Medications multivitamin 1 ea PO DAILY supplement 10/24/16 [History Last Taken 12/21/19 08:00] omeprazole 20 mg capsule,delayed release 10 mg PO DAILY stomach 10/24/16 [History Last Taken 12/21/19 08:00] acetaminophen 325 mg tablet 650 mg PO Q4H PRN PRN Mild-Moderate Pain (1-5/10) 02/04/19 [Rx Last Taken Unknown] folic acid 0.8 mg capsule 0.8 mg PO DAILY 01/06/20 [History Last Taken Unknown] levothyroxine 125 mcg tablet 125 mcg PO DAILY 01/06/20 [History Last Taken 04/29/21] aspirin 81 mg tablet,delayed release (Adult Low Dose Aspirin) 81 mg PO DAILY 04/24/21 [History Last Taken 04/29/21] atorvastatin 40 mg tablet 40 mg PO DAILY #90 tabs 09/13/21 [Rx Last Taken Unknown] furosemide 20 mg tablet 20 mg PO DAILY 10/30/21 [History Last Taken Unknown] ondansetron 4 mg disintegrating tablet 4 mg PO Q8H PRN nausea and vomiting #30 tabs 02/19/22 [Rx Last Taken Unknown] losartan 50 mg tablet 50 mg PO DAILY #90 tabs 04/17/22 [Rx Last Taken Unknown] dexamethasone 4 mg tablet 4 mg PO BID PRN CHEMO DAYS 09/07/22 [History Last Taken Unknown] Allergy/AdvReac Type Severity Reaction Status Date / Time No Known Allergies Allergy Verified 09/07/22 11:59 Family History Uncle Cancer Mother CVA (cerebral vascular accident) Surgical History History of left heart catheterization (04/29/21) History of tonsillectomy and adenoidectomy History of wisdom tooth extraction Hx of lymph node biopsy port placement (11/09/19) Social History Smoking Status: Never smoker second hand exposure: No alcohol intake: never substance use type: does not use caffeine: Yes what type of physical activity do you participate in: none frequency: does not exercise ROS ROS ED ROS Narrative Nonproductive cough. Left rib pain. Review of Systems ROS Unobtainable: Denies due to encephalopathy Constitutional Constitutional ED: Denies chills or fever(s) Eyes Eyes: Denies blurry vision ENT ENT ED: Denies ear pain Cardiovascular Cardiovascular: Reports chest pain Respiratory/Chest Respiratory/Chest: Reports cough; Denies dyspnea Gastrointestinal Gastrointestinal: Denies abdominal pain Genitourinary Genitourinary ED: Denies dysuria or hematuria Musculoskeletal Musculoskeletal: Denies arthralgias or back pain Integumentary Denies abscess or Abrasions Neurologic Neurologic: Denies headache(s) Psychiatric Psychiatric: Denies anxiety Endocrine Endocrinology: Denies cold intolerance Hematologic/Lymphatic Hematologic/Lymphatic: Reports none Allergic/Immunologic Allergic/Immunologic ED: Denies mouth swelling or tongue swelling EXAM Physical Exam Narrative Exam Narrative: 77-year-old male no acute distress vital signs stable afebrile. Pulse ox 97% on room air no hypoxia. H EENT exam unremarkable. Moist Riis membranes. Lungs clear to auscultation bilaterally. Heart regular rhythm rate about 90 no murmur. Chest wall mild tenderness left lower lateral rib cage. No crepitance or subcu air. No bony deformity. Also mild tenderness left lateral oblique consistent with a muscle strain. Abdomen is nontender without peritoneal signs. Moving all 4 extremities. Calves are nontender without edema. Neurologically is awake and alert with no focal motor deficits. Const Vital Signs: 09/07/22 12:01 09/07/22 12:18 Temperature 99.1 F Temperature Source Temporal Pulse Rate 87 Respiratory Rate 17 Respiratory Effort Normal Non-Labored Respiratory Depth Normal Respiratory Pattern Normal Blood Pressure 137/61 H Blood Pressure Mean 86 Pulse Ox 97 Oxygen Delivery Method Room Air Room Air Positive well nourished, well developed and obese; Negative for cachectic, contractures or unkempt General Appearance ED: well developed and NAD; Negative for unkempt, cachectic, contractures, cyanotic, diaphoretic or pallor Nutritional Appearance: obese; Negative for cachectic HEENT Reports moist mucous membranes; Denies dry mucous membranes Negative for trauma or tenderness Mouth ED: No dry mucous membranes Mouth: No dry mucous membranes Eyes PERRL and EOMs intact bilaterally General Eye ED: Negative for pale conjunctiva or scleral icterus Neck no lymphadenopathy, supple and no JVD General: Negative for tenderness Chest Wall inspection of chest normal and palpation of chest normal Chest: Negative for other Resp normal respiratory effort and clear to auscultation bilaterally Effort and Inspection: pain with movement; Negative for retractions Auscultation: Negative for rales, rhonchi or wheezes Cardio regular rate, regular rhythm, S1 normal heart sound, S2 normal heart sound and no murmurs Palpation: Negative for palpable S3 or palpable S4 Rate: Negative for bradycardia Rhythm: Negative for abnormal rhythm GI normal to inspection, nondistended, normoactive bowel sounds, non-tender, non- distended and no masses Inspection: Negative for abdominal distention Auscultation: normoactive bowel sounds Palpation: soft; Negative for tender or guarding Back/Spine no CVA tenderness General Back: Negative for CVA tenderness or other Cervical Spine: Negative for cervical spine tenderness Thoracic Spine / Upper Back: Negative for thoracic spinal tenderness or paraspinal muscle tenderness Lumbar Spine / Lower Back: Negative for lumbar spinal tenderness Extremity normal to inspection General Extremety ED: Negative for edema or tenderness General Extremity: Negative for edema Neuro oriented x3 and CN's II-XII intact bilaterally Sensorium / Orientation: alert; Negative for orientation impaired, lethargic or stuporous Motor Exam: strength 5/5 throughout; Negative for general weakness or strength abnormal Psych mental status grossly normal Appearance: Negative for unkempt Attitude: No agitated Mood & Affect: Negative for depressed, anxious or tearful Skin no rashes or lesions noted and no wounds General Skin Exam: elasticity normal; Negative for jaundice or pallor Lesions: No lesion noted Rashes: No rashes noted Trauma: Negative for abrasion Wounds: Negative for wounds noted MDM MDM MDM Narrative Medical decision making narrative: 77-year-old male has been coughing and either strained his left rib cage or revise a rib fracture. X-ray being obtained. Exam benign. Repeat exam unchanged. I went over the x-ray with the patient and his . They did not want narcotic pain medication for home. He will use Tylenol or Aleve. Follow-up with his doctor. Return if worse. Radiography Chest X-Ray - ED: 2 View, Read by ED Physician, Heart, Lungs, Mediastinum, Bony Structures, No Acute Disease and Chronic Changes Diagnostic Testing: Clinical Impression(s) from Imaging Studies Chest X-Ray 09/07/22 12:47 IMPRESSION: No acute findings in the chest. Electronically Signed: Matti Trimble MD at 13:04 EST , Chest x-ray, AP and lateral, 2 views interpreted by myself and radiologist shows no acute abnormality. No fracture. No infiltrate. I went over this with the patient and his . Discharge Plan Triage Chief Complaint: Cough ED Provider: Miki Marquez Dx/Rx/DC Orders Clinical Impression: Chest wall muscle strain Instructions: ED Chest Wall Strain Prescriptions: No Action levothyroxine 125 mcg tablet 125 mcg PO DAILY folic acid 0.8 mg capsule 0.8 mg PO DAILY aspirin [Adult Low Dose Aspirin] 81 mg tablet,delayed release (DR/EC) 81 mg PO DAILY atorvastatin 40 mg tablet 40 mg PO DAILY Qty: 90 3RF furosemide 20 mg tablet 20 mg PO DAILY ondansetron 4 mg tablet,disintegrating 4 mg PO Q8H PRN (Reason: nausea and vomiting) Qty: 30 2RF multivitamin 1 EACH tablet 1 ea PO DAILY omeprazole 20 MG capsule 10 mg PO DAILY acetaminophen 325 MG tablet 650 mg PO Q4H PRN PRN (Reason: Mild-Moderate Pain (1-510)) 0RF dexamethasone 4 mg tablet 4 mg PO BID PRN (Reason: CHEMO DAYS) Rx Instructions: Take 4 mg by mouth twice daily ONLY the day before, the day of and the day after chemotherapy losartan 50 mg tablet 50 mg PO DAILY Qty: 90 3RF Primary Care Provider: Isrrael Zaldivar Referrals: Isrrael Zaldivar MD [Primary Care Provider] - 10-14 Days if not better Activity Restrictions/Additional Instructions: Chest x-ray showed no obvious broken ribs. You could still have a small crack that we do not see on the x-ray. More likely you have a strain chest wall and chest wall musculature. Ice to the area. Pillow to support the ribs to help with the pain. Tylenol and Aleve for pain. Follow-up with your doctor if not improving. Disposition Disposition: Home, Self Care
--- NOTE | 2022-09-07 12:47 | RAD_ITS ---
EXAM: XR CHEST, 2 VIEWS CLINICAL INDICATION: cough and rib pain (no rib series) TECHNIQUE: Frontal and lateral views of the chest. This report was created using [employer] report generation technology. COMPARISON: None. FINDINGS: LUNGS AND PLEURAL SPACES: Shallow inspiration. No pneumothorax. No effusion. HEART: Normal heart size. MEDIASTINUM: No mediastinal or hilar mass. BONES/JOINTS: No acute abnormality. SOFT TISSUES: Normal. TUBES, LINES AND DEVICES: Left internal jugular central venous catheter tip in the proximal superior vena cava. RAD/Chest PA and Lateral IMPRESSION: No acute findings in the chest. Electronically Signed: Matti Trimble MD at 13:04 EST ,
[2022-09-07 14:00] VITALS: RESP 18
[2022-09-07 14:15] VITALS: RESP 18
== END 2022-09-07 14:29 | disposition home or self-care (01) ==
PROVIDERS: Emergency Provider Emergency Medicine; PCP Family Medicine; Visit Provider Emergency Medicine
DX: S29.011A Strain of muscle and tendon of front wall of thorax, initial encounter (principal); I25.10 Atherosclerotic heart disease of native coronary artery without angina pectoris; E78.5 Hyperlipidemia, unspecified; R07.81 Pleurodynia; I10 Essential (primary) hypertension; E66.9 Obesity, unspecified; Z20.822 Contact with and (suspected) exposure to COVID-19; X58.XXXA Exposure to other specified factors, initial encounter
CPT/HCPCS: 71046; 99282

== ENCOUNTER → 2022-09-15 | Outpatient (CLI) | payer MEDICARE, SELFPAY ==
--- NOTE | 2022-09-15 12:48 | RAD_ITS ---
STUDY: X-RAY - UNILATERAL RIBS ( LEFT ) REASON FOR EXAM: Male, 77 years old. RIB PAIN -- STAT TECHNIQUE: 4 view(s) of the ribs. COMPARISON: None. FINDINGS: Normal visualized ribs without a demonstrated fracture. The visualized lung is clear and expanded. RAD/Ribs Unil 2V No CXR IMPRESSION: Normal x-ray examination of the ribs. Electronically Signed: Brayan Chaves MD at 13:33 EST ,
--- NOTE | 2022-09-15 12:48 | RAD_ITS ---
STUDY: X-RAY CHEST REASON FOR EXAM: Male, 77 years old. COUGH -- STAT TECHNIQUE: PA and lateral views of the chest. COMPARISON: Comparison is made with prior study 09/07/2022. FINDINGS: A left-sided Port-A-Cath is seen with the tip at the junction of the superior vena cava and right atrium. Stable elevation of the right hemidiaphragm. The lungs are clear and expanded. There is no demonstrated pleural abnormality. Normal size heart. Normal mediastinum and gumaro. Normal visualized pulmonary arteries. There is atherosclerotic calcification of the aortic arch with tortuosity. There are degenerative changes of the visualized thoracic spine. Normal visualized ribs, clavicles, and shoulders. There is no demonstrated abnormality of the visualized soft tissue structures of the upper abdomen. RAD/Chest PA and Lateral IMPRESSION: Stable elevation of the right hemidiaphragm. No acute abnormality is seen. Electronically Signed: Brayan Chaves MD at 13:32 EST ,
== END | disposition home or self-care (01) ==
PROVIDERS: PCP Family Medicine; Visit Provider Family Medicine
DX: R07.81 Pleurodynia (principal); R05.9 Cough, unspecified
CPT/HCPCS: 71046; 71100

== ENCOUNTER → 2022-11-24 | Outpatient (CLI) | payer MEDICARE, SELFPAY ==
--- NOTE | 2022-11-24 12:51 | ECHODONC_ITS ---
Version 2 Reason For Study: Dyspnea/SOB Procedure This was a 2D Doppler, Color Flow transthoracic echocardiogram. Myocardial strain analysis was performed in this exam to aid in the assessment of cardiac function. Exam performed in department. Left Ventricle Normal LV size. Left ventricular systolic function is normal. The estimated ejection fraction is 55 %. Stage 1 diastolic dysfunction. No regional wall motion abnormalities noted. Right Ventricle Normal RV size. Normal systolic function. Mitral Valve There is mild mitral annular calcification. Mild-Moderate (1-2+) eccentric mitral valve insufficiency. Aortic Valve Trisinus/trileaflet aortic valve. Aortic sclerosis, no stenosis. Peak aortic valve gradient 18 mmHg. Mean aortic valve gradient 10 mmHg. Mild (1+) aortic valve insufficiency. Pulmonic Valve The pulmonic valve is not well visualized. Great Vessels Normal aortic root. The pulmonary artery is normal size. Normal inferior vena cava. Pericardium/Pleural No pericardial effusion. MMode/2D Measurements & Calculations RVDd: 3.1 cm LVOT diam: 2.0 cm Ao root diam: 3.6 cm LVOT area: 3.3 cm2 LA dimension: 4.7 cm LAV(MOD-bp): 71.4 ml LA A4 area: 22.4 cm2 LAV(MOD-bp) Indexed: 35.2 ml/m2 LAV(MOD-sp2): 60.6 ml LAV(MOD-sp4): 66.2 ml Time Measurements MV dec time: 0.24 sec Doppler Measurements & Calculations MV E max tremayne: 76.8 cm/sec Lat Peak E' Tremayne: 11.8 cm/sec Med Peak E' [place]rem[place]ne: 7.9 cm/sec MV A max tremayne: 99.2 cm/sec E/E' lat: 6.5 E/E' med: 9.7 MV E/A: 0.77 MV V2 max: 110.3 cm/sec MV P1/2t max tremayne: 111.6 cm/sec Ao V2 max: 212.8 cm/sec MV max P.9 mmHg MV P1/2t: 76.3 msec Ao max P.2 mmHg MV V2 mean: 64.7 cm/sec MV dec slope: 428.6 cm/sec2 Ao V2 mean: 150.9 cm/sec MV mean P.0 mmHg MVA(P1/2t): 2.9 cm2 Ao mean P.4 mmHg MV V2 VTI: 35.9 cm Ao V2 VTI: 47.0 cm MVA(VTI): 2.4 cm2 AV (velocity ratio): 0.57 PRETTY(I,D): 1.9 cm2 PRETTY(V,D): 1.8 cm2 AI max tremayne: 350.7 cm/sec LV V1 max: 114.9 cm/sec SV(LVOT): 87.7 ml AI max P.3 mmHg LV V1 max P.3 mmHg LV V1 mean P.1 mmHg AI dec slope: 212.1 cm/sec2 LV V1 mean: 82.8 cm/sec AI P1/2t: 484.4 msec LV V1 VTI: 26.7 cm PA V2 max: 88.1 cm/sec PA V2 mean: 60.7 cm/sec ECHO/ONC Echo Complete Interpretation Summary Normal LV size. Left ventricular systolic function is normal. The estimated ejection fraction is 55 %. Mild-Moderate (1-2+) eccentric mitral valve insufficiency. Stage 1 diastolic dysfunction. Mean aortic valve gradient 10 mmHg. Mild (1+) aortic valve insufficiency. The global longitudinal strain is borderline abnormal. Compared to previous alex dy, the left ventricular systolic function is the same.. The global longitudinal strain has worsened. Ordering Physician: Jeremiah Chauhan Referring Physician: Jeremiah Chauhan Performed By: Musa Gamez RCS
== END | disposition home or self-care (01) ==
PROVIDERS: PCP Family Medicine; Referring Provider Internal Medicine Cardiovascular Disease; Visit Provider Internal Medicine Cardiovascular Disease
DX: R06.02 Shortness of breath (principal); I34.0 Nonrheumatic mitral (valve) insufficiency
CPT/HCPCS: 93306; 93356

== ENCOUNTER 2022-11-26 07:38 | Outpatient (CLI) | payer MEDICARE, SELFPAY ==
--- NOTE | 2022-11-26 07:41 | CT_ITS ---
STUDY: CT CHEST T ABDOMEN WITH CONTRAST REASON FOR EXAM: Male, 77 years old. F/U NSCLC IV CONTRAST ONLY RADIATION DOSAGE (If Supplied By Facility): CTDIvol = ( 19.17 ) mGy, DLP = ( 1657.00 ) mGycm TECHNIQUE: Transaxial imaging was performed following intravenous administration of IV 100mL Isovue-300. Individualized dose optimization techniques were used for this CT. COMPARISON: Comparison is made with prior study 07/30/2022. FINDINGS: CHEST A left-sided judith catheter seen with the tip in the superior vena cava. Stable linear density in the anterior lateral aspect of the left upper lobe as seen on axial image #35. Stable mild linear scarring in the right middle lobe. Stable mild scarring at the lung bases. There is no demonstrated pleural abnormality. There are calcifications of the coronary arteries. Normal mediastinum. Normal hilar regions. Normal unenhanced pulmonary arteries. There is atherosclerotic calcification of the aortic arch. There are multi-level degenerative changes of the thoracic spine. ABDOMEN There is decreased attenuation of the liver consistent with steatosis. Normal gallbladder and extrahepatic biliary system. Normal spleen. Normal pancreas. Normal bilateral adrenal glands. Stable small bilateral renal cysts. Normal visualized stomach. Normal small intestine. There are scattered colonic diverticula consistent with diverticulosis. The appendix is visualized and appears normal. There is diffuse atherosclerotic calcification of the abdominal aorta, without a demonstrated aneurysm. Normal inferior vena cava. Normal retroperitoneum. Normal abdominal wall. There are diffuse degenerative changes of the visualized lumbar spine. CT/CT Chest AND Abd W/ Contrast IMPRESSION: Stable examination. Electronically Signed: Brayan Chaves MD at 14:53 EST ,
[2022-11-26] MEDS: 0.9% Saline Lock 10 ML Syringe IV (08:07)
== END 2022-11-26 23:59 | disposition home or self-care (01) ==
LOC: CT 07:38
PROVIDERS: PCP Family Medicine; Visit Provider Internal Medicine Hematology & Oncology
DX: C34.90 Malignant neoplasm of unspecified part of unspecified bronchus or lung (principal); C77.1 Secondary and unspecified malignant neoplasm of intrathoracic lymph nodes; C77.0 Secondary and unspecified malignant neoplasm of lymph nodes of head, face and neck; C78.00 Secondary malignant neoplasm of unspecified lung
CPT/HCPCS: 36591; 71260; 74160; 80053; 85025; 96361; 96365; 96377; 96413; J7040; J9305; Q9967; A4216; J2405; J2506; J3490

== ENCOUNTER → 2023-01-07 | Outpatient (CLI) | payer MEDICARE, SELFPAY ==
[2023-01-07 10:21] LABS: Absolute Lymphocyte Count 1.44 X10^3/uL (0.83-4.51); Basophil# 0.05 X10^3/uL; Basophil% 0.2 % (0-1); Eosinophil# 0.21 X10^3/uL; Hematocrit 42.8 % (40-54); Hemoglobin 13.8 g/dL (13.0-16.5); Lymphocyte # 1.44 X10^3/ul (0.83-4.51); Lymphocyte % 7.1 % (19-41); Mean Corp Hgb Conc 32.2 g/dL (32-36); Mean Corpuscular Hgb 31.4 pg (27.0-32.0); Mean Corpuscular Volume 97.3 fL (80-94); Mean Platelet Vol. 9.5 fl (6.2-12.0); Monocyte# 1.24 X10^3/uL; Monocyte% 6.1 % (0-10); NRBC Flagged by Analyzer 0 % (0-5); Neutrophil # 17.03 X10^3/uL (2.7-7.7); Neutrophil % 84.6 % (47-70); Platelet Count 188 K/mm3 (150-450); RBC Distribution Width CV 13.9 % (11.6-14.6); RBC Distribution Width SD 48.8 fl (35.1-43.9); White Blood Count 20.2 K/mm3 (4.4-11.0)
[2023-01-07 11:21] LABS: BUN 23 mg/dL (7-18); BUN/Creat Ratio 18.9 RATIO (10-20); Creatinine, Serum 1.22 mg/dL (0.70-1.30); EST Glomerular Filtration Rate 61 mL/min (>60); Est Glom Filt Rate - Afr Amer 74 mL/min (>60); Globulin 4.1 g/dL (2.2-4.2); Glucose 114 mg/dL (74-106); Protein, Total 7.1 g/dL (6.4-8.2)
[2023-01-07 11:22] LABS: ALB/GLOB Ratio 0.7 RATIO (0.9-2.4); AST(SGOT) 27 U/L (15-37); Alanine Aminotransfer ALT/SGPT 43 U/L (16-61); Alkaline Phosphatase 177 U/L (45-117); Anion Gap 4 (5-15); Calcium,Total 8.5 mg/dL (8.5-10.1); Chloride 107 mmol/L (98-107); Potassium 3.9 mmol/L (3.5-5.1); Sodium Level 137 mmol/L (136-145)
[2023-01-07 11:56] LABS: Cholesterol 127 mg/dL (200); High Density Lipoprotein 30 mg/dL; T4 Free Direct 1.13 ng/dL (0.76-1.46); Thyroid Stim Hormone (TSH) 4.25 uIU/mL (0.358-3.74); Triglycerides 156 mg/dL; Very Low Density Lipoprotein 31 mg/dL (5-40)
== END | disposition home or self-care (01) ==
LOC: MTLAB 09:17
PROVIDERS: PCP Family Medicine; Referring Provider Internal Medicine Hematology & Oncology; Visit Provider Internal Medicine Hematology & Oncology
DX: Z00.00 Encounter for general adult medical examination without abnormal findings (principal); D64.9 Anemia, unspecified; Z51.11 Encounter for antineoplastic chemotherapy; E03.9 Hypothyroidism, unspecified
CPT/HCPCS: 36415; 80053; 80061; 84439; 84443; 85025

== ENCOUNTER → 2023-03-12 | Outpatient (CLI) | payer MEDICARE, SELFPAY ==
--- NOTE | 2023-03-12 08:12 | CT_ITS ---
STUDY: CT CHEST T ABDOMEN WITH CONTRAST REASON FOR EXAM: Male, 77 years old. NSCLC assess treatment response. Three-month follow-up. RADIATION DOSAGE (If Supplied By Facility): CTDIvol = ( 17.53 ) mGy, DLP = ( 1456.46 ) mGycm TECHNIQUE: Transaxial imaging was performed following intravenous administration of IV 100mL Isovue-300. Multiplanar coronal and sagittal images were reformatted. Individualized dose optimization techniques were used for this CT. COMPARISON: Comparison is made with prior study dated November 26, 2022. FINDINGS: CHEST A left-sided portacatheter is seen. The tip in the superior vena cava. Stable slightly irregular linear densities seen in the anterior lateral aspect of the left upper lobe as seen on axial image #3738 and 39. Stable mild scarring at the lung bases as well as in the right middle lobe. There is a 1.2 cm pleural-based nodular density in the left lower lobe as seen on axial image #98. There is no demonstrated pleural abnormality. There are calcifications of the coronary arteries. Normal mediastinum. Normal hilar regions. Normal unenhanced pulmonary arteries. Normal aorta arch and descending thoracic aorta. There are multi-level degenerative changes of the thoracic spine. ABDOMEN There is decreased attenuation of the liver consistent with steatosis. Normal gallbladder and extrahepatic biliary system. Normal spleen. Normal pancreas. Normal bilateral adrenal glands. Stable small bilateral renal cysts. Normal visualized stomach. Normal small intestine. There are scattered colonic diverticula consistent with diverticulosis. The appendix is visualized and appears normal. There is diffuse atherosclerotic calcification of the abdominal aorta, without a demonstrated aneurysm. Normal inferior vena cava. Normal retroperitoneum. Normal abdominal wall. There are diffuse degenerative changes of the visualized lumbar spine. CT/CT Chest AND Abd W/ Contrast IMPRESSION: Essentially stable examination except for a pleural-based nodule in the left lower lobe measuring 1.2 cm. 3 month follow-up examination is recommended. Electronically Signed: Brayan Chaves MD at 12:45 EDT ,
== END | disposition home or self-care (01) ==
LOC: CT 08:10
PROVIDERS: PCP Family Medicine; Referring Provider Nurse Practitioner Family; Visit Provider Nurse Practitioner Family
DX: C34.90 Malignant neoplasm of unspecified part of unspecified bronchus or lung (principal); I25.10 Atherosclerotic heart disease of native coronary artery without angina pectoris
CPT/HCPCS: 71260; 74160; Q9967

== ENCOUNTER → 2023-07-01 | Outpatient (CLI) | payer MEDICARE, SELFPAY ==
--- NOTE | 2023-07-01 07:50 | CT_ITS ---
STUDY: CT CHEST T ABDOMEN WITH CONTRAST REASON FOR EXAM: Male, 78 years old. NSCLC assess response to tx. RADIATION DOSAGE (If Supplied By Facility): CTDIvol = ( 18.64 ) mGy, DLP = ( 1626.27 ) mGycm TECHNIQUE: Transaxial imaging was performed following intravenous administration of IV 100mL Isovue-300. Multiplanar coronal and sagittal images were reformatted. Individualized dose optimization techniques were used for this CT. COMPARISON: Comparison is made with prior study dated March 12, 2023. FINDINGS: CHEST A left-sided Port-A-Cath is seen with the tip in the superior vena cava. Stable slightly irregular linear density in the anterior lateral aspect of the left upper lobe as seen on axial image #39. The previously seen pleural-based density in the posterior aspect of the left lower lobe as increased in size. It presently measures 2.5 cm x 1 cm. Stable mild scarring at the lung bases as well as in the right middle lobe. There is no demonstrated pleural abnormality. There are calcifications of the coronary arteries. Normal mediastinum. Normal hilar regions. Normal unenhanced pulmonary arteries. There is atherosclerotic calcification of the aortic arch with tortuosity and elongation of the aortic arch and descending thoracic aorta. There are degenerative changes of the thoracic spine. ABDOMEN There is decreased attenuation of the liver consistent with steatosis. Normal gallbladder and extrahepatic biliary system. Normal spleen. Normal pancreas. Normal bilateral adrenal glands. Stable bilateral renal cysts. Normal visualized stomach. Normal small intestine. There are scattered colonic diverticula consistent with diverticulosis. The appendix is visualized and appears normal. There is scattered atherosclerotic calcification of the abdominal aorta, without a demonstrated aneurysm. Normal inferior vena cava. Normal retroperitoneum. Normal abdominal wall. There are degenerative changes of the visualized lumbar spine. CT/CT Chest AND Abd W/ Contrast IMPRESSION: Essentially stable examination except for increase size in the pleural-based nodule in the left lower lobe presently measuring 2.5 cm by 1 cm. Correlation with PET scan is recommended. Electronically Signed: Brayan Chaves MD at 14:57 EDT ,
== END | disposition home or self-care (01) ==
PROVIDERS: PCP Family Medicine; Referring Provider Nurse Practitioner Family; Visit Provider Nurse Practitioner Family
DX: C34.90 Malignant neoplasm of unspecified part of unspecified bronchus or lung (principal); C77.1 Secondary and unspecified malignant neoplasm of intrathoracic lymph nodes; C77.0 Secondary and unspecified malignant neoplasm of lymph nodes of head, face and neck
CPT/HCPCS: 71260; 74160; Q9967

== ENCOUNTER → 2023-10-21 | Outpatient (CLI) | payer MEDICARE, SELFPAY ==
--- OUTSIDE RECORDS SUMMARY | 2023-10-21 12:44 | XMS RPT_ITS | CCD ---
Author Name Unknown Address [address] [place] [address] Organization [facility] Results Test Name Value Interpretation Reference Range Facil ity Summary Purpose Family History No Family History Records Found Advance Directives No Advanced Directives Records Found Additional Source Comments (unrecognized sect ion and content) No Status Records Found INFORMATION SOURCE (unrecogn ized section and content) FOR RECORDS PERTAINING TO PATIENTS WHO ARE OR HAVE BEEN ENROLLED IN A CHEMICAL DEPENDENCY/SUBSTANCEABUSE PROGRAM, SOME INFORMATION MAY BE OMITTED. This clinical summary was aggregated from multiple sources. Caution should be exercised in using it in the provision of clinical care. This summary normalizes information from multiple sources, and as a consequence, information in this document may materially change the coding, format and clinical context of patient data. In addition, data may be omitted in some cases. CLINICAL DECISIONS SHOULD BE BASED ON THE PRIMARY CLINICAL RECORDS. [employer]. provides no warranty or guarantee of the accuracy or completeness of information in this document.
--- NOTE | 2023-10-21 12:55 | CT_ITS ---
INDICATION: NSCLC MONITORING. IV CONTRAST ONLY EXAMINATION: CT CHEST AND ABDOMEN WITH CONTRAST - CT Chest And Abdomen W/ Contrast Injection TECHNIQUE: Helically acquired images were obtained of the chest and abdomen. A radiation dose optimization technique was used for this scan. IV Contrast dosage and agent: 100 cc of Isovue-370. Oral contrast: None. COMPARISON: Prior study dated: 07/01/2023 FINDINGS: ----Chest: LUNGS, PLEURA AND LARGE AIRWAYS: Focal linear stranding/scarring in the left upper lobe unchanged. Previously noted pleural-based left lower lobe 2.5 x 1 cm density is again seen and appears to be unchanged partially obscured by adjacent pleural effusion. No new nodules are identified. New moderate right and small left pleural effusions. No pneumothorax. THYROID: No thyroid lesions. HEART AND PERICARDIUM: Heart size is normal. No pericardial effusion. Coronary calcifications. VESSELS: Thoracic aorta is not dilated. MEDIASTINUM AND GITA: No mediastinal or hilar adenopathy. Esophagus is unremarkable. No hiatal hernia. BONES: No suspicious lytic or blastic abnormality. ----Abdomen (without Pelvis): LIVER: Mild hepatic steatosis. No focal mass. GALLBLADDER AND BILIARY TREE: No calcified gallstones. No gallbladder distension or wall edema. No intra- or extrahepatic biliary ductal dilation. PANCREAS: No focal cystic or solid mass. SPLEEN: Normal size without focal cystic or solid mass. ADRENAL GLANDS: No nodules. KIDNEYS AND URETERS: Stable bilateral simple cysts for which no further follow-up exam is needed. No hydronephrosis. PERITONEUM: No ascites or free air. No other fluid collection. BOWEL: Normal in caliber small bowel loops. Sigmoid diverticulosis without definite acute diverticulitis although the sigmoid is somewhat fluid-filled. The appendix is not identified. LYMPH NODES: No enlarged mesenteric or retroperitoneal lymph nodes. VESSELS: Atherosclerotic calcifications of the abdominal aorta without evidence of aneurysm. ABDOMINAL WALL: No discrete abdominal wall hernia. BONES: No lytic or blastic abnormality. CT/CT Chest AND Abd W/ Contrast IMPRESSION: 1. Newly developed bilateral pleural effusions larger on the right side. 2. Otherwise no significant change since previous exam. 3. Persistent pleural-based left lower lobe nodule essentially unchanged again better evaluated with PET scan. 4. Sigmoid diverticulosis without definite acute diverticulitis. Electronically Signed: Demetrius Sorto MD at 13:41 EST ,
[2023-10-21 13:34] VITALS: BP 120/64; PULSE 70; RESP 16; TEMP 35.6; O2SAT 99; BMI 32.9
[2023-10-21] MEDS: 0.9% Saline Lock 10 ML Syringe IV (14:01)
== END | disposition home or self-care (01) ==
PROVIDERS: PCP Family Medicine; Referring Provider Internal Medicine Hematology & Oncology; Visit Provider Internal Medicine Hematology & Oncology
DX: C77.1 Secondary and unspecified malignant neoplasm of intrathoracic lymph nodes (principal); C77.0 Secondary and unspecified malignant neoplasm of lymph nodes of head, face and neck; C78.00 Secondary malignant neoplasm of unspecified lung; C34.12 Malignant neoplasm of upper lobe, left bronchus or lung
CPT/HCPCS: 71260; 74160; Q9967; A4216

== ENCOUNTER → 2023-10-23 | Outpatient (CLI) | payer MEDICARE, SELFPAY ==
--- NOTE | 2023-10-23 | FLU_PTH ---
PATHOLOGY RESULTS PATIENT: RAJAN ROSEN LOC: U#:[id number] AGE/SX: 78/M ROOM: RE10/23/[address]: Dr. Santi Liu MD : 1945 BED: DIS: 10/23/2023 SPEC #: [id number] RECD: 10/23/23 13:26 STATUS: COURTNEY RERip #: [id number] IVAN: 10/23/23 00:[address]: Santi Liu DEPT: CYTOLOGY RECD BY: Tariq Teresa ENTERED: 10/23/23 13:27 SP TYPE: Fluid OTHR DR: Dr. Lisandro Zaldivar MD Tissues: THORACIC FLUID Procedures: Special Stain Group II Mucicarmine Stain (control) Surgery Specimen Level IV Cytospin Fluid HEADER OPERATION: Thoracentesis PRE-OP DIAGNOSIS: Right pleural effusion TISSUE SUBMITTED: Thoracentesis fluid for cytology DIAGNOSIS CYTOLOGY Thoracentesis fluid for cytology (cytospin and cell block): Negative for malignant cells. See comment. SJ:emily 10/27/2023 COMMENT Mucin stain with matched control was also used in the evaluation of the specimen. Immunohistochemistry ([id number]) supports the above diagnosis. Please make reference to previous specimen ([id number]) right anterior cervical lymph node, biopsy with diagnosis of metastatic poorly differentiated non-small cell carcinoma, favor adenocarcinoma, consistent with lung primary. Clinical correlation and appropriate follow up are necessary. Case has been reviewed in consultation with Dr. Vega who concurs with the above diagnosis. IDC:AM CYTOLOGY STUDY Slides are reviewed. CYTOLOGY GROSS Received is 100 ml of yellow cloudy fluid labeled with the patient's name and and designated per the requisition as thoracentesis. Submitted for cytology preparation including cell block. / emily 10/23/2023 TC:5 CPT: 50451, 25239, 44119
--- NOTE | 2023-10-23 | IMM_PTH ---
PATHOLOGY RESULTS PATIENT: RAJAN ROSEN LOC: U#:[id number] AGE/SX: 78/M ROOM: RE10/23/[address]: Dr. Santi Liu MD : 1945 BED: DIS: 10/23/2023 SPEC #: [id number] RECD: 10/26/23 13:10 STATUS: COURTNEY REQ #: [id number] IVAN: 10/23/23 00:[address]: Santi Liu DEPT: IMMUNOHISTOCHEMISTRY RECD BY: Jessica Patiño ENTERED: 10/26/23 13:12 SP TYPE: IMMUNO OTHR DR: Dr. Lisandro Zaldivar MD Tissues: THORACIC FLUID Procedures: RCC (add) NAPSIN A (add) Jalil Ret (add) CK20 (add) CK5-6 (add) CK7 (add) CK8 (add) HEP PAR (add) TTF1 (add) Vimentin (add) Pankeratin (initial) P40 (add) PSAP (add) CD68 (ADD) PHYSICIAN & [address] [address] SPECIMEN INFORMATION: Tissue Source: Thoracentesis fluid Clinical Info: Right pleural effusion Specimen Number: [id number] CPT code: 28545, 42166 x13 METHODOLOGY: Deparaffinized sections of prefer/formalin-fixed tissue or PAP/DQ stained slides are incubated with monoclonal/polyclonal antibodies/oligonucleotide probes. Localization is made via biotin free immunoperoxidase method. Appropriate controls are performed and reacted as expected. Results on target cell population are indicated in the following table: RESULTS: ANTIBODY / CLONE RESULT AE1-3 (AE1/AE3/PCK26) negative * CK7 (OV-TL12/30) negative * CK8 (86rmlvF91) negative * CK20 (KS20.8) negative * Vimentin (V9) negative * CD68 (KP-1) negative (positive in macrophages) TTF-1 (8G7G3/1) negative Napsin A (Rabbit Polyclonal) negative HepPar (OCh1E5) negative RCC (PN-15) negative PSAP (PASE/4LJ) negative CALRET (polyclonal) negative * CK5-6 (D5 & 1684) negative * P40 (BC28) negative *?Positive in mesothelial cells. These tests were developed and their performance characteristics determined by [facility]. They may not have been cleared or approved by the U.S. Food and Drug Administration. The FDA has determined that such clearance or approval is not necessary. The above immunohistochemical/dualISH markers are ordered and reviewed by the Pathologist. INTERPRETATION: Thoracentesis fluid (cell block): Negative for malignant cells. SJ:emily 10/27/2023
--- NOTE | 2023-10-23 10:32 | ECHODONC_ITS ---
Reason For Study: Chemotherapy Procedure This was a 2D Doppler, Color Flow transthoracic echocardiogram. Myocardial strain analysis was performed in this exam to aid in the assessment of cardiac function. Exam performed in department. Left Ventricle Normal LV size. The estimated ejection fraction is 50 %. There is mild global hypokinesis of the left ventricle. Right Ventricle Normal RV size. Normal systolic function. Atria Normal left atrium. Normal right atrium. Mitral Valve There is moderate mitral annular calcification. Mild (1+) eccentric mitral valve insufficiency. Tricuspid Valve Normal tricuspid valve. Mild tricuspid valve insufficiency. Pulmonary artery systolic pressure is 23 mmHg. Aortic Valve Trisinus/trileaflet aortic valve. Mild focal aortic valve calcification. Pulmonic Valve Normal pulmonic valve. Great Vessels Normal aortic root. The pulmonary artery is normal size. Normal inferior vena cava. Pericardium/Pleural No pericardial effusion. MMode/2D Measurements & Calculations LVIDd: 3.9 cm IVSd: 1.4 cm LVOT diam: 2.0 cm LVIDs: 3.2 cm LVPWd: 1.1 cm LVOT area: 3.1 cm2 RVDd: 3.0 cm FS: 18.8 % LA dimension: 3.8 cm LAV(MOD-bp): 50.5 ml LVAd ap4: 27.5 cm2 LAV(MOD-bp) Indexed: 25.1 ml/m2 LVLd ap4: 7.6 cm LAV(MOD-sp2): 46.1 ml EDV(MOD-sp4): 80.1 ml LAV(MOD-sp4): 47.1 ml EDV(sp4-el): 84.2 ml LVAs ap4: 18.1 cm2 LVLs ap4: 6.7 cm ESV(MOD-sp4): 42.0 ml ESV(sp4-el): 41.4 ml EF(MOD-sp4): 47.6 % EF(sp4-el): 50.8 % SV(MOD-sp4): 38.2 ml SV(sp4-el): 42.8 ml LA A4 area: 18.5 cm2 RA A4 area: 10.7 cm2 Time Measurements MV dec time: 0.18 sec Doppler Measurements & Calculations MV E max valentina: 98.2 cm/sec Ao V2 max: 156.8 cm/sec AI end-d valentina: 270.4 cm/sec MV A max valentina: 84.0 cm/sec Ao max P.9 mmHg MV E/A: 1.2 Ao V2 mean: 105.1 cm/sec Ao mean P.1 mmHg Ao V2 VTI: 26.1 cm AV (velocity ratio): 0.67 PRETTY(I,D): 2.1 cm2 PRETTY(V,D): 1.8 cm2 LV V1 max: 88.1 cm/sec MR max valentina: 443.0 cm/sec SV(LVOT): 54.8 ml LV V1 max P.1 mmHg MR max P.5 mmHg LV V1 mean P.7 mmHg LV V1 mean: 62.2 cm/sec LV V1 VTI: 17.4 cm PA V2 max: 76.1 cm/sec TR max valentina: 220.0 cm/sec TR max P.4 mmHg ECHO/ONC Echo Complete Interpretation Summary Normal LV size. The estimated ejection fraction is 50 %. There is moderate mitral annular calcification. The global longitudinal strain is severely abnormal. The global longitudinal strain = -9.3% (abnormal). The global longitudinal stra in is severely abnormal. The global longitudinal strain has worsened. Ordering Physician: Jeremiah Chauhan Referring Physician: Santi Liu Performed By: Musa Gamez RCS
--- OUTSIDE RECORDS SUMMARY | 2023-10-23 11:02 | XMS RPT_ITS | CCD ---
Author Name Unknown Address [address] [place] [address] Organization [facility] Results Test Name Value Interpretation [...] BE BASED ON THE PRIMARY CLINICAL RECORDS. [employer]. provides no warranty or guarantee of the accuracy or completeness of information in this document.
[2023-10-23 12:16] VITALS: BP 103/67; PULSE 128; RESP 18; TEMP 36.2; O2SAT 100
[2023-10-23] MEDS: Lidocaine 2% (20 ml mdv) 20 ML Vial INFILT (12:26)
[2023-10-23 12:30] VITALS: BP 85/54; PULSE 131; RESP 18; O2SAT 99
--- NOTE | 2023-10-23 12:33 | RAD_ITS ---
STUDY: X-RAY CHEST REASON FOR EXAM: Male, 78 years old. Post thora-rt TECHNIQUE: Status post right thoracentesis. COMPARISON: Comparison is made with prior study September 15, 2022. FINDINGS: A left-sided Port-A-Cath are seen with the tip at the junction of the superior vena cava region. No evidence of pneumothorax on the post right thoracentesis examination. RAD/Chest Insp/Exp 2 View IMPRESSION: No evidence of pneumothorax on the post right thoracentesis examination. Electronically Signed: Brayan Chaves MD at 12:50 EST ,
[2023-10-23 12:40] VITALS: BP 101/65; PULSE 122; RESP 18; O2SAT 99
--- NOTE | 2023-10-23 12:44 | PRO.PCM_ITS ---
Procedure Report Date of Procedure: 10/23/23 Assessment & Plan Assessment/Plan (1) Pleural effusion, bilateral: PLAN: PROCEDURE: Ultrasound Guided Thoracentesis ORDERING PROVIDER: Dr. Liu INDICATION: Male, 78 years old. Right pleural effusion. PROVIDER: JANNY Dalton PROCEDURE: The risks, benefits, and alternatives to the procedure were explained to the patient. The specific risks of bleeding, infection, and pneumothorax requiring chest tube insertion were discussed and accepted. Written informed consent was obtained. The patient was placed in the sitting, upright position. Ultrasonographic evaluation of the bilateral lower pleural spaces was carried out. An adequate pocket was identified in the right lower pleural space.The overlying skin was prepped and draped in sterile fashion. 2% lidocaine was administered subcutaneously for local anesthesia. Under ultrasound guidance, a 5-Trinidadian thoracentesis needle/catheter system was advanced into the right posterior lower pleural fluid collection. 280 ml of c lear yellow colored fluid was drained. 100 ml of this fluid was sent to the laboratory for analysis, as per requesting physician. The catheter was removed, and a sterile dressing was applied. The patient tolerated the procedure well. A chest x-ray was ordered. IMPRESSION: Successful ultrasound-guided thoracentesis of right pleural effusion. Procedures Radiology Radiology US Procedures: [id number] Thoracentesis
[2023-10-23 12:49] LABS: Cytology, Body Fluid / CSF SEE PATHOLOGY REPORT
== END | disposition home or self-care (01) ==
LOC: US 10:30
PROVIDERS: PCP Family Medicine; Referring Provider Internal Medicine Hematology & Oncology; Visit Provider Internal Medicine Hematology & Oncology
DX: I08.3 Combined rheumatic disorders of mitral, aortic and tricuspid valves (principal); J90 Pleural effusion, not elsewhere classified
CPT/HCPCS: 32555; 71046; 88108; 88305; 88313; 88341; 88342; 93306; 93356

== ENCOUNTER → 2023-10-28 | Outpatient (CLI) | payer MEDICARE, SELFPAY ==
--- NOTE | 2023-10-28 10:28 | VDUE_ITS ---
Reason For Study: Left arm swelling Right Proximal Left Proximal Right subclavian vein is spontaneous, widely Left jugular vein is spontaneous, widely patent, phasic, with no intraluminal patent, phasic, with no intraluminal echogenicity noted. echogenicity noted. Left subclavian vein is spontaneous, widely patent, phasic, with no intraluminal echogenicity noted. Port noted in the left subclavian vein. Left Arm Left axillary vein is spontaneous, patent, phasic, competent, compressible and demonstrates augmentation. Left brachial vein is compressible. Left cephalic vein is compressible. Left basilic vein is compressible. Left Lower Arm Left radial vein is compressible. Left ulnar vein is compressible. Patient Safety Preliminary report given to Shannan FAUSTIN. VL/Venous Duplex US, Unilateral Interpretation Summary Deep veins of the left upper extremity are patent and compressible segmentally. There is no evidence of deep vein thrombosis. Superficial veins of the left upper extremity are patent and compressible segme ntally. There is no evidence of superficial vein thrombosis. Ordering Physician: Santi Liu Referring Physician: Lisandro Zaldivar MD Performed By: Keara Read RVT ???
--- OUTSIDE RECORDS SUMMARY | 2023-10-28 10:51 | XMS RPT_ITS | CCD ---
Author Name Unknown Address [address] [place] [address] Organization [facility] Results Test Name Value Interpretation [...] BE BASED ON THE PRIMARY CLINICAL RECORDS. [employer]. provides no warranty or guarantee of the accuracy or completeness of information in this document.
== END | disposition home or self-care (01) ==
LOC: CVS 10:27
PROVIDERS: PCP Family Medicine; Referring Provider Internal Medicine Hematology & Oncology; Visit Provider Internal Medicine Hematology & Oncology
DX: I25.10 Atherosclerotic heart disease of native coronary artery without angina pectoris (principal); R60.9 Edema, unspecified; M79.89 Other specified soft tissue disorders
CPT/HCPCS: 93971

== ENCOUNTER → 2024-01-21 | Outpatient (CLI) | payer MEDICARE, SELFPAY ==
--- NOTE | 2024-01-21 07:50 | CT_ITS ---
STUDY: CT CHEST T ABDOMEN WITH CONTRAST REASON FOR EXAM: Male, 78 years old. LUNG CA ON RX - RESPONSE IV CONTRAST ONLY RADIATION DOSAGE (If Supplied By Facility): CTDIvol = ( 17.07 ) mGy, DLP = ( 1462.65 ) mGycm TECHNIQUE: Transaxial imaging was performed following intravenous administration of IV 100mL Isovue-370. Multiplanar coronal and sagittal images were reformatted. Individualized dose optimization techniques were used for this CT. COMPARISON: No relevant priors. FINDINGS: CHEST A left-sided portacatheter is seen with the tip in the superior vena cava. Bilateral pleural effusions right greater than left with bibasilar dependent atelectasis. These have progressed as compared to prior study. Stable focal linear scarring in the left upper lobe is unchanged. Stable 2.5 cm x 1.4 cm pleural-based nodule in the posterior-lateral aspect of the right lower lobe. There are calcifications of the coronary arteries. Normal mediastinum. Normal hilar regions. Normal unenhanced pulmonary arteries. Normal aorta arch and descending thoracic aorta. There are degenerative changes of the thoracic spine. ABDOMEN Normal liver. Normal gallbladder and extrahepatic biliary system. Normal spleen. Normal pancreas. Normal bilateral adrenal glands. Stable small bilateral renal cysts. Normal visualized stomach. Normal small intestine. There are scattered colonic diverticula consistent with diverticulosis. The appendix is visualized and appears normal. There is diffuse atherosclerotic calcification of the abdominal aorta, without a demonstrated aneurysm. Normal inferior vena cava. Normal retroperitoneum. Normal abdominal wall. There are degenerative changes of the visualized lumbar spine. CT/CT Chest AND Abd W/ Contrast IMPRESSION: Progressive increase in size of the bilateral pleural effusions with bibasilar atelectasis. The remainder the examination is unchanged. Electronically Signed: Brayan Chaves MD at 14:37 EDT ,
== END | disposition home or self-care (01) ==
PROVIDERS: PCP Family Medicine; Referring Provider Internal Medicine Hematology & Oncology; Visit Provider Internal Medicine Hematology & Oncology
DX: C34.90 Malignant neoplasm of unspecified part of unspecified bronchus or lung (principal)
CPT/HCPCS: 71260; 74160; Q9967; A4216

== ENCOUNTER → 2024-01-29 | Outpatient (CLI) | payer MEDICARE, SELFPAY ==
--- NOTE | 2024-01-29 | FLU_PTH ---
PATIENT: RAJAN ROSEN LOC: U#:[id number] AGE/SX: 78/M ROOM: RE01/29/[address]: Dr. Santi Liu MD : 1945 BED: DIS: 01/29/2024 SPEC #: [id number] RECD: 01/29/24 13:23 STATUS: COURTNEY COLETTE #: [id number] IVAN: 01/29/24 00:[address]: Santi Liu DEPT: CYTOLOGY RECD BY: Tariq Teresa ENTERED: 01/29/24 13:24 SP TYPE: Fluid OTHR DR: Dr. Lisandro Zaldivar MD Tissues: THORACIC FLUID Procedures: Special Stain Group II Surgery Specimen Level IV Cytospin Fluid HEADER OPERATION: Thoracentesis PRE-OP DIAGNOSIS: Pleural effusion TISSUE SUBMITTED: Thoracentesis fluid for cytology DIAGNOSIS CYTOLOGY Thoracentesis fluid for cytology (cytospin and cellblock): Negative for malignant cells. See comment. SJ/mr 02/01/24 COMMENT Clinical correlation and appropriate follow up are necessary. Immunohistochemistry ([id number]) supports the above diagnosis. Please make reference to previous specimen [id number] right lower neck fine needle aspiration, with diagnosis of malignant cells present derived from poorly differentiated non-small cell carcinoma and [id number] right anterior cervical lymph node and deep cervical lymph node with diagnosis of metastatic poorly differentiated non-small cell carcinoma. CYTOLOGY STUDY Slides are reviewed. CYTOLOGY GROSS Received is 90 ml of yellow cloudy fluid labeled with the patient's name and and designated per the requisition as Thoracentesis fluid. Submitted for cytology preparation including cell block. mr 01/29/24 TC:5 CPT: 42728,69938
--- NOTE | 2024-01-29 | IMM_PTH ---
PATIENT: RAJAN ROSEN LOC: U#:[id number] AGE/SX: 78/M ROOM: RE01/29/[address]: Dr. Santi Liu MD : 1945 BED: DIS: 01/29/2024 SPEC #: [id number] RECD: 02/02/24 09:10 STATUS: COURTNEY REQ #: [id number] IVAN: 01/29/24 00:[address]: Santi Liu DEPT: IMMUNOHISTOCHEMISTRY RECD BY: Samir Jacobs ENTERED: 02/02/24 09:11 SP TYPE: IMMUNO OTHR DR: Dr. Lisandro Zaldivar MD Tissues: THORACIC FLUID Procedures: RCC (add) NAPSIN A (add) Jalil Ret (add) CK20 (add) CK5-6 (add) CK7 (add) CK8 (add) HEP PAR (add) TTF1 (add) Vimentin (add) Pankeratin (initial) P40 (add) PSAP (add) CD68 (ADD) PHYSICIAN & [address] [address] SPECIMEN INFORMATION: Tissue Source: Thoracentesis fluid Clinical Info: Pleural effusion Specimen Number: [id number] (cell block #2) CPT code: 52256,90891x22 METHODOLOGY: Deparaffinized sections of prefer/formalin-fixed tissue or PAP/DQ stained slides are incubated with monoclonal/polyclonal antibodies/oligonucleotide probes. Localization is made via biotin free immunoperoxidase method. Appropriate controls are performed and reacted as expected. Results on target cell population are indicated in the following table: RESULTS: ANTIBODY / CLONE RESULT (cell block #2) AE1-3 (AE1/AE3/PCK26) negative * CK7 (OV-TL12/30) negative * CK8 (63dojnK82) negative * CK20 (KS20.8) negative Vimentin (V9) negative * CD68 (KP-1) negative TTF-1 (8G7G3/1) negative Napsin A (Rabbit Polyclonal) negative HepPar (OCh1E5) negative RCC (PN-15) negative PSAP (PASE/4LJ) negative CALRET (polyclonal) negative * CK5-6 (D5 & 1684) negative * P40 (BC28) negative * Positive in mesothelial cells These tests were developed and their performance characteristics determined by [facility]. They may not have been cleared or approved by the U.S. Food and Drug Administration. The FDA has determined that such clearance or approval is not necessary. The above immunohistochemical/dualISH markers are ordered and reviewed by the Pathologist. INTERPRETATION: Thoracentesis fluid (cellblock #2): Negative for malignant cells. LOVE/ 02/03/2024
--- NOTE | 2024-01-29 11:46 | US_ITS ---
PROCEDURE: ULTRASOUND GUIDED THORACENTESIS. DATE: January 29, 2024.. INDICATION: Male, 78 years old. Right pleural effusion. PHYSICIAN: Brayan Chaves M.D. PROCEDURE: The risks, benefits, and alternatives to the procedure were explained to the . The specific risks of bleeding, infection, and pneumothorax requiring chest tube insertion were discussed and accepted. Written informed consent was obtained. Ultrasonographic evaluation of the right lower pleural space was carried out. An adequate pocket was identified. The patient was placed in the sitting, upright position. The overlying skin was prepped and draped in sterile fashion. 1% lidocaine was administered subcutaneously for local anesthesia. Under ultrasound guidance, a 5 Turkmen thoracentesis needle/catheter system was advanced into the right posterior lower pleural fluid collection. Approximately 1130 mL of fabricio-colored fluid was drained. The catheter was removed, and a sterile dressing was applied. A specimen was collected and sent to the laboratory for analysis, as requested by the referring clinician. The patient tolerated the procedure well. A chest x-ray was ordered. US/Thoracentesis W US IMPRESSION: Ultrasound-guided right thoracentesis. Electronically Signed: Brayan Chaves MD at 12:51 EDT ,
[2024-01-29 12:06] VITALS: BP 90/42; PULSE 81; RESP 20; O2SAT 97
[2024-01-29 12:10] VITALS: BP 93/42; PULSE 88; RESP 20; O2SAT 97
[2024-01-29] MEDS: Lidocaine 2% (20 ml mdv) 20 ML Vial INFILT (12:12)
[2024-01-29 12:15] VITALS: BP 90/42; PULSE 86; RESP 20; O2SAT 98
[2024-01-29 12:18] VITALS: BP 77/44; PULSE 92; RESP 18; O2SAT 99
--- NOTE | 2024-01-29 12:20 | RAD_ITS ---
STUDY: X-RAY CHEST REASON FOR EXAM: Male, 78 years old. Immediately post thoracentesis TECHNIQUE: Status post right thoracentesis. COMPARISON: AP inspiration and expiration views. FINDINGS: The patient is status post right thoracentesis. There is no evidence of pneumothorax. Mild residual blunting of the right costophrenic angle. RAD/Chest Insp/Exp 2 View IMPRESSION: Status post right thoracentesis. No evidence of pneumothorax. Electronically Signed: Brayan Chaves MD at 12:44 EDT ,
[2024-01-29 12:24] VITALS: BP 110/52; PULSE 87; RESP 18; O2SAT 98
[2024-01-29 12:26] VITALS: BP 120/63; PULSE 88; RESP 18; O2SAT 98
[2024-01-29 12:41] LABS: Cytology, Body Fluid / CSF SEE PATHOLOGY REPORT
== END | disposition home or self-care (01) ==
PROVIDERS: PCP Family Medicine; Referring Provider Internal Medicine Hematology & Oncology; Visit Provider Internal Medicine Hematology & Oncology
DX: J90 Pleural effusion, not elsewhere classified (principal)
CPT/HCPCS: 32555; 71046; 88108; 88305; 88313; 88341; 88342

== ENCOUNTER → 2024-02-11 | Outpatient (CLI) | payer MEDICARE, SELFPAY ==
--- NOTE | 2024-02-11 12:06 | MRI_ITS ---
HISTORY: nausea, imbalance, dizziness NSCLC- r/o CULLET WASHER metastasis. TECHNIQUE: Multiplanar and multisequence MR images of the brain were obtained before and after the intravenous administration of 18 cc Clariscan. 209 images. COMPARISON: CT 10/24/2016. FINDINGS: BRAIN PARENCHYMA: Multiple foci and zones of increased T2 FLAIR signal in the bilateral cerebral white matter and miryam. Chronic chavez radiata basal ganglia lacunar infarcts. No enhancing lesion in the brain parenchyma. No abnormal focus of restricted diffusion. No acute intracranial hemorrhage identified. CSF SPACES: Moderate volume loss. No significant midline shift or other mass effect.No extra-axial fluid collection. VASCULAR SYSTEM: Major intracranial flow voids are maintained. PARANASAL SINUSES AND MASTOID AIR CELLS: Small cyst at the junction of the sphenoid sinus anterior clivus again seen. Mild fluid in the left mastoid air cells. ORBITS: Bilateral lens resections. MRI/Brain W/WO Contrast IMPRESSION: No evidence of enhancing intracranial mass. Chronic involutional and white matter changes. No evidence for acute infarct. Electronically Signed: Cassie Sevilla MD at 15:48 EDT ,
[2024-02-15 09:07] LABS: Absolute Lymphocyte Count 1.24 X10^3/uL (0.83-4.51); Absolute Neutrophil Count 11.4 X10^3/uL (2.0-7.7); Basophil# 0.01 X10^3/uL; Basophil% 0.1 % (0-1); Hematocrit 32.1 % (40-54); Hemoglobin 10.6 g/dL (13.0-16.5); Lymphocyte # 1.24 X10^3/ul (0.83-4.51); Lymphocyte % 9.1 % (19-41); Mean Platelet Vol. 8.6 fl (6.2-12.0); Monocyte# 0.84 X10^3/uL; Monocyte% 6.2 % (0-10); NRBC Flagged by Analyzer 0 % (0-5); Neutrophil # 11.43 X10^3/uL (2.7-7.7); Platelet Count 221 K/mm3 (150-450); RBC Distribution Width CV 14.6 % (11.6-14.6); RBC Distribution Width SD 53.6 fl (35.1-43.9); Red Blood Count 3.21 M/mm3 (4.6-6.2); White Blood Count 13.6 K/mm3 (4.4-11.0)
[2024-02-15 09:27] LABS: ALB/GLOB Ratio 0.8 RATIO (0.9-2.4); AST(SGOT) 29 U/L (15-37); Alanine Aminotransfer ALT/SGPT 34 U/L (16-61); Alkaline Phosphatase 78 U/L (45-117); Anion Gap 6 (5-15); BUN 34 mg/dL (7-18); BUN/Creat Ratio 36.8 RATIO (10-20); Calcium,Total 8.7 mg/dL (8.5-10.1); Chloride 106 mmol/L (98-107); Creatinine, Serum 0.92 mg/dL (0.70-1.30); EST Glomerular Filtration Rate 84 mL/min (>60); Est Glom Filt Rate - Afr Amer 102 mL/min (>60); Globulin 3.9 g/dL (2.2-4.2); Glucose 100 mg/dL (74-106); Potassium 3.8 mmol/L (3.5-5.1); Protein, Total 6.9 g/dL (6.4-8.2); Sodium Level 139 mmol/L (136-145)
[2024-02-15 16:59] LABS: Xtra Tube EP Lab EXTRA TUBE
== END | disposition home or self-care (01) ==
PROVIDERS: PCP Family Medicine; Referring Provider Nurse Practitioner Family; Visit Provider Nurse Practitioner Family
DX: R11.0 Nausea (principal); C77.1 Secondary and unspecified malignant neoplasm of intrathoracic lymph nodes; C77.0 Secondary and unspecified malignant neoplasm of lymph nodes of head, face and neck; C34.90 Malignant neoplasm of unspecified part of unspecified bronchus or lung; R26.89 Other abnormalities of gait and mobility; J90 Pleural effusion, not elsewhere classified
CPT/HCPCS: 70553; 80053; 85025; A9575; A4216

== ENCOUNTER 2024-03-01 10:49 | Outpatient (CLI) | payer MEDICARE, SELFPAY ==
--- NOTE | 2024-03-01 11:02 | RAD_ITS ---
STUDY: X-RAY - ABDOMEN/PELVIS REASON FOR EXAM: Male, 78 years old. Nausea. TECHNIQUE: Single AP view of the abdomen / pelvis on 3 images. COMPARISON: None. FINDINGS: Hyperinflation with blunting of the right costophrenic angle and small right effusion. Normal bowel gas pattern with air seen to the rectosigmoid. Moderate amount of feces in the colon. Intra-abdominal contours are partially obscured due to gas and feces. Phleboliths. Lumbosacral spondylosis with mild arthrosis of both hips. RAD/Abd Inc Decub and/or Erect IMPRESSION: Hyperinflation with right pleural effusion. No acute abnormality of the abdomen or pelvis is identified. Electronically Signed: Jovany Drake MD at 12:47 EDT ,
[2024-03-01 13:01] LABS: Color, Urine Yellow (Yellow); Glucose, Dipstick Normal (Normal); Ketone-Dipstick 5 mg/dl (Negative); Leukocyte Esterase-Dipstick 500 /ul (Negative); Nitrite-Dipstick Negative (Negative); Occult Blood-Urine 10 /ul (Negative); Protein-Dipstick 30 mg/dl (Negative); Specific Gravity, Urine 1.015 (1.002-1.030); Urine Bilirubin Dipstick Negative (Negative); Urine Clarity Sl. Cloudy (Clear); Urine Urobilinogen 1 mg/dl (Normal)
[2024-03-01 13:04] LABS: Erythrocyte Sedimentation Rate 41 mm/hr (0-20)
[2024-03-01 13:05] LABS: Absolute Lymphocyte Count 1.43 X10^3/uL (0.83-4.51); Absolute Neutrophil Count 5.7 X10^3/uL (2.0-7.7); Basophil# 0.06 X10^3/uL; Basophil% 0.7 % (0-1); Eosinophil# 0.27 X10^3/uL; Eosinophils% 3.3 % (0-5); Hematocrit 33.7 % (40-54); Hemoglobin 11.3 g/dL (13.0-16.5); Lymphocyte # 1.43 X10^3/ul (0.83-4.51); Lymphocyte % 17.5 % (19-41); Mean Corp Hgb Conc 33.5 g/dL (32-36); Mean Corpuscular Volume 95.5 fL (80-94); Mean Platelet Vol. 9.1 fl (6.2-12.0); Monocyte# 0.71 X10^3/uL; Monocyte% 8.7 % (0-10); NRBC Flagged by Analyzer 0 % (0-5); Neutrophil # 5.67 X10^3/uL (2.7-7.7); Neutrophil % 69.4 % (47-70); Platelet Count 191 K/mm3 (150-450); RBC Distribution Width CV 13.2 % (11.6-14.6); RBC Distribution Width SD 46.4 fl (35.1-43.9); Red Blood Count 3.53 M/mm3 (4.6-6.2); White Blood Count 8.2 K/mm3 (4.4-11.0)
[2024-03-01 13:29] LABS: Bacteria 1+ /hpf (None Seen); Mucous, Urine 1+ /hpf (<or=2+); Red Blood Cells-Urine 0-5 SEEN /hpf (0-5); Squamous Epithelial Cells - UA 0-5 SEEN /hpf (0-5); White Blood Cells 0-5 SEEN /hpf (0-5)
[2024-03-01 13:32] LABS: ALB/GLOB Ratio 0.6 RATIO (0.9-2.4); AST(SGOT) 61 U/L (15-37); Alanine Aminotransfer ALT/SGPT 46 U/L (16-61); Albumin, Serum 2.5 g/dL (3.2-5.0); Alkaline Phosphatase 83 U/L (45-117); Amylase 27 U/L (25-115); Anion Gap 10 (5-15); BUN 18 mg/dL (7-18); BUN/Creat Ratio 15.4 RATIO (10-20); Calcium,Total 8.9 mg/dL (8.5-10.1); Chloride 100 mmol/L (98-107); Creatinine, Serum 1.17 mg/dL (0.70-1.30); EST Glomerular Filtration Rate 64 mL/min (>60); Est Glom Filt Rate - Afr Amer 77 mL/min (>60); Globulin 4.2 g/dL (2.2-4.2); Glucose 119 mg/dL (74-106); Lipase 27 U/L (13-75); Potassium 3.4 mmol/L (3.5-5.1); Protein, Total 6.7 g/dL (6.4-8.2); Sodium Level 134 mmol/L (136-145)
== END 2024-03-01 23:59 | disposition home or self-care (01) ==
LOC: MTLAB 10:50
PROVIDERS: PCP Family Medicine; Referring Provider Family Medicine; Visit Provider Family Medicine
DX: R11.0 Nausea (principal); R34 Anuria and oliguria
CPT/HCPCS: 36415; 74019; 80053; 81001; 82150; 83690; 85025; 85652; 87086

== ENCOUNTER → 2024-03-03 | Outpatient (CLI) | payer MEDICARE, SELFPAY ==
--- NOTE | 2024-03-03 07:16 | US_ITS ---
EXAM: US ABDOMEN LIMITED, RIGHT UPPER QUADRANT CLINICAL INDICATION: elevated LFT and elevated bilirubin TECHNIQUE: Real-time ultrasound of the right upper quadrant with image documentation. COMPARISON: CT abdomen 01/21/2024, US Abdomen Limited RUQ dated 03/09/2019 FINDINGS: LIVER: Normal. There is normal echotexture. No focal hepatic lesion. No intrahepatic biliary ductal dilation. GALLBLADDER: Normal. No shadowing gallstone. No gallbladder wall thickening is demonstrated. No pericholecystic fluid. Negative sonographic Brown''s sign. COMMON BILE DUCT: Unremarkable as visualized. The proximal common bile duct is normal size. PANCREAS: Pancreas is obscured by overlying bowel gas. RIGHT KIDNEY: Right renal cysts are again noted. No specific follow-up indicated. There is no hydronephrosis. No shadowing calculus. PLEURAL SPACE: Right pleural effusion. US/Abdomen Limited IMPRESSION: 1. Right pleural effusion. 2. Normal liver and gallbladder. 3. Right renal cysts. Electronically Signed: Matti Trimble MD at 8:44 EDT ,
== END | disposition home or self-care (01) ==
LOC: US 07:12
PROVIDERS: PCP Family Medicine; Referring Provider Family Medicine; Visit Provider Family Medicine
DX: R17 Unspecified jaundice (principal)
CPT/HCPCS: 76705

== ENCOUNTER 2024-04-08 09:09 | Day surgery (SDC) | payer MEDICARE, SELFPAY ==
--- NOTE | 2024-04-08 09:30 | PRE.ANES_ITS ---
ASA Classification* ASA Classification ASA Classification: 3 Assessment & Plan Anesthesia* Anesthesia Assessment Anesthesia Assessment: Discussed sedation and/or anesthesia options, risks, benefits, and alternatives with patient/parents/legal guardian/POA. Questions invited. The patient/parents/legal guardian/POA seems to understand and agrees to proceed with anesthesia plan. Reviewed the physical assessment, medical history, allergy history and patient home medications list prior to surgery/procedure/anesthetic and documented any changes. Performed airway and anesthesia risk assessments. Anesthesia Type Anesthesia Type: MAC (see written pre anesthesia record for full assessment) Anesthesia Focused Assessment* Airway Assessment Mouth opens: >3 cm Mallampati Score: II Focused Labs Anesthesia Preop lab: CBC WBC 9.4 K/mm3 (4.4-11.0) 04/06/24 10:24 RBC 3.82 M/mm3 (4.6-6.2) L 04/06/24 10:24 Hgb 11.7 g/dL (13.0-16.5) L 04/06/24 10:24 Hct 35.6 % (40-54) L 04/06/24 10:24 Plt Count 177 K/mm3 (150-450) 04/06/24 10:24 CHEMISTRY Potassium 4.0 mmol/L (3.5-5.1) 04/06/24 10:24 Sodium 137 mmol/L (136-145) 04/06/24 10:24 Magnesium 1.9 mg/dL (1.6-2.6) 04/06/24 10:24 Phosphorus 4.1 mg/dL (2.5-4.9) 04/06/24 10:24 BUN 30 mg/dL (7-18) H 04/06/24 10:24 Creatinine 1.02 mg/dL (0.70-1.30) 04/06/24 10:24 Glucose 107 mg/dL (74-106) H 04/06/24 10:24 TSH 5.21 uIU/mL (0.358-3.74) H 03/09/24 09:45 COAG PT 13.7 SECONDS (11.7-14.9) 12/21/19 21:02 Pre-Assessment Diagnosis/Proposed Procedure Planned Operative Procedure(s): RIGHT INSERTION VASCULAR PORT REMOVAL OF LEFT VASCULAR PORT Anesthesia History Anesthesia History - dairy manufacturing technologist: Anesthesia History - dairy manufacturing technologist Hx Hospitalization No 04/07/24 10:26 Any Problems With Anesthesia No 04/07/24 10:26 Cholinesterase deficiency No 04/07/24 10:26 You/Your Family Experience No 04/07/24 10:26 fever (hyperthermia) with Relationship Recent Exposure to Contagious No 10/28/23 10:27 Disease Does patient have nerve No 04/07/24 10:26 stimulator Patient instructed to have device shut off --Does patient have Pacemaker or ICD? When Was Last Pacemaker Check QUESTION #4 FULL TEXT: You/Your Family Experience fever (hyperthermia) with Anesthesia Last Oral Intake Last Oral intake: Last Oral Intake NPO since Meds taken in AM with sips of water? Meds patient instructed to take am of surgery PONV PONV - dairy manufacturing technologist: PONV - dairy manufacturing technologist Female No 04/07/24 10:26 HX of Motion Sickness No 04/07/24 10:26 HX of N/V After Surgery No 04/07/24 10:26 Non-Smoker Yes 04/07/24 10:26 Duration of Surgery greater No 04/07/24 10:26 than 60 minutes Number of Risk Factors 1 04/07/24 10:26 PONV Score Low Risk 04/07/24 10:26 Height & Weight Height & Weight: Anesthesia: Height & Weight Height 5 ft 6 in 04/06/24 13:04 Respiratory Assessment Respiratory Assessment - dairy manufacturing technologist: Respiratory Tract Infection Hx - dairy manufacturing technologist Hx Respiratory Tract Infection No 04/07/24 10:26 STOP Sleep Apnea STOP Sleep Apnea - dairy manufacturing technologist: STOP Sleep Apnea - dairy manufacturing technologist Hx Hypertension Yes: CONTROLLED WITH MED 04/07/24 10:26 Hx Sleep Apnea No 04/07/24 10:26 CPAP No 10/28/23 10:27 BIPAP Do you snore loudly (louder No 04/07/24 10:26 than talking or can be heard Do you often feel tired/ Yes 04/07/24 10:26 fatigued/ sleepy during daytime? Has anyone observed you stop No 04/07/24 10:26 breathing during sleep? STOP Results Positive 04/07/24 10:26 QUESTION #5 FULL TEXT : Do you snore loudly (louder than talking or can be heard through closed doors)? Tobacco Use History Tobacco Use History - dairy manufacturing technologist: Tobacco Use History - dairy manufacturing technologist Tobacco Use Smoking Status Never smoker 04/07/24 10:26 Hx Tobacco Use No 04/07/24 10:26 Years Smoking Packs Smoked per Day Smoking Cessation Date was within the last 15 years Hx Smoking Cessation Date Hx Smoking Cessation Counseling Hematologic Medial History Hematologic Hx - dairy manufacturing technologist: Hematologic Medical Hx - truck mechanic apprentice Hx of Blood Transfusion Yes 04/07/24 10:26 Hx of Transfusion in last 3 No 04/07/24 10:26 Months Date of Last Transfusion (if within last 3 months) Ever experience any problems No 04/07/24 10:26 with transfusion(s)? Specify any problems Hx of Preganancy in last 3 N/A 04/07/24 10:26 Months Nurse Filling Out Transfusion DSCHRIBER 04/07/24 10:26 & Questions: Date: 04/07/24 04/07/24 10:26 Time: 10:04/07/24 10:26 Patient unable to answer at this time (ie. confused, unrespo /Reproduction History /Reproductive History - dairy manufacturing technologist: /Reproductive Hx- dairy manufacturing technologist Hx Now No 04/07/24 10:26 Gestational Age (in weeks): EDC: Hx Hx Para Hx Section SAB No 04/07/24 10:26 Active Medications Active Medications: Current Medications Generic Name Dose Route Start Last Admin Trade Name Freq PRN Reason Stop Dose Admin Lactated Ringer's 1,000 mls @ 15 mls/hr 04/08/24 09:15 IV .Q48H RAUL PFSH Medical History Wears glasses History of steroid therapy High cholesterol Gastric reflux Non-smoker Shortness of breath on exertion History of edema History of echocardiogram History of rheumatic fever Hypertension Cardiology follow-up encounter Dehydration Adrenal insufficiency Weakness Elevated bilirubin Hyponatremia Imbalance Nausea Thrombocytopenia Pleural effusion, bilateral Stomatitis Drug induced neutropenia Impaired glucose tolerance Encounter for chemotherapy management Edema of extremities Atherosclerotic heart disease of [place] coronary artery without angina pectoris Bilateral lower leg cellulitis Nonrheumatic aortic (valve) stenosis Obesity Elevated liver enzymes Essential (primary) hypertension Chemotherapy management, encounter for Bacteremia (12/21/19) Rash Hoarseness of voice Encounter for adjustment and management of vascular access device Immunotherapy encounter Anemia Localized swelling, mass and lump, neck Encounter for education Hypothyroidism HLD (hyperlipidemia) Non-small cell carcinoma of lung Pneumothorax, left Primary lung cancer 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 Home Medications ?Medication ?Instructions ?Recorded ?Last Taken ?Type multivitamin 1 ea PO DAILY supplement 10/24/16 12/21/19 08:00 History omeprazole 20 mg capsule,delayed 10 mg PO DAILY stomach 10/24/16 12/21/19 08:00 History release acetaminophen 325 mg tablet 650 mg (2 x 325 mg) PO Q4H PRN PRN 02/04/19 Unknown Rx Mild-Moderate Pain (1-5/10) levothyroxine 125 mcg tablet 125 mcg PO MOTUWETHFR 01/06/20 04/29/21 History Handicap Placard #1 ea 07/30/23 Unknown Rx atorvastatin 40 mg tablet 40 mg PO DAILY #90 tabs 08/14/23 Unknown Rx metoprolol succinate 25 mg 25 mg PO DAILY #90 tabs 10/23/23 Unknown Rx tablet,extended release 24 hr (Toprol XL) furosemide 40 mg tablet 40 mg PO MOWEFR 04/07/24 Unknown History hydrocortisone 5 mg tablet 5 mg PO 1300 04/07/24 Unknown History hydrocortisone 5 mg tablet 10 mg PO DAILY 04/07/24 Unknown History levothyroxine 125 mcg capsule 250 mcg PO SUSA 04/07/24 Unknown History Allergy/AdvReac Type Severity Reaction Status Date / Time No Known Allergies Allergy Verified 04/07/24 10:20 Family History Uncle Cancer Mother CVA (cerebral vascular accident) Surgical History Hx of colonoscopy History of vascular access device History of left heart catheterization (04/29/21) Hx of lymph node biopsy History of tonsillectomy and adenoidectomy History of wisdom tooth extraction Social History Smoking Status: Never smoker second hand exposure: No alcohol intake: never substance use type: does not use caffeine: Yes what type of physical activity do you participate in: none frequency: does not exercise Review of Systems (Anesthesia) ROS Narrative System reviewed and no additional complaints, except as documented.
[2024-04-08 09:38] VITALS: BP 137/82; PULSE 88; RESP 16; TEMP 36.7; O2SAT 99; BMI 27.7
[2024-04-08] MEDS: Lactated Ringers 1,000 ML 15 ML IV (09:51)
--- NOTE | 2024-04-08 10:37 | PCM.HP.STD ---
HPI - General HPI Narrative RAJAN ROSEN, is a 79 M who presents for problems with his left chest port. The port has been in since 2019. The patient has a left chest port and is scabbed over in the middle portion from repeat punctures in the middle of the port. It was not functional last time he needed infusion. [facility] Medical History (Updated 04/08/24 @ 10:[address] Nick Warren MD) Wears glasses History of steroid therapy High cholesterol Gastric reflux Non-smoker Shortness of breath on exertion History of edema History of echocardiogram History of rheumatic fever Hypertension Cardiology follow-up encounter Dehydration Adrenal insufficiency Weakness Elevated bilirubin Hyponatremia Imbalance Nausea Thrombocytopenia Pleural effusion, bilateral Stomatitis Drug induced neutropenia Impaired glucose tolerance Encounter for chemotherapy management Edema of extremities Atherosclerotic heart disease of [place] coronary artery without angina pectoris Bilateral lower leg cellulitis Nonrheumatic aortic (valve) stenosis Obesity Elevated liver enzymes Essential (primary) hypertension Chemotherapy management, encounter for Bacteremia (12/21/19) Rash Hoarseness of voice Encounter for adjustment and management of vascular access device Immunotherapy encounter Anemia Localized swelling, mass and lump, neck Encounter for education Hypothyroidism HLD (hyperlipidemia) Non-small cell carcinoma of lung Pneumothorax, left Primary lung cancer 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 Home Medications ?Medication ?Instructions ?Recorded ?Last Taken ?Type multivitamin 1 ea PO DAILY supplement 10/24/16 12/21/19 08:00 History omeprazole 20 mg capsule,delayed 10 mg PO DAILY stomach 10/24/16 12/21/19 08:00 History release acetaminophen 325 mg tablet 650 mg (2 x 325 mg) PO Q4H PRN PRN 02/04/19 Unknown Rx Mild-Moderate Pain (1-5/10) levothyroxine 125 mcg tablet 125 mcg PO MOTUWETHFR 01/06/20 04/29/21 History Handicap Placard #1 ea 07/30/23 Unknown Rx atorvastatin 40 mg tablet 40 mg PO DAILY #90 tabs 08/14/23 Unknown Rx metoprolol succinate 25 mg 25 mg PO DAILY #90 tabs 10/23/23 Unknown Rx tablet,extended release 24 hr (Toprol XL) furosemide 40 mg tablet 40 mg PO MOWEFR 04/07/24 Unknown History hydrocortisone 5 mg tablet 5 mg PO 1300 04/07/24 Unknown History hydrocortisone 5 mg tablet 10 mg PO DAILY 04/07/24 Unknown History levothyroxine 125 mcg capsule 250 mcg PO SUSA 04/07/24 Unknown History Allergy/AdvReac Type Severity Reaction Status Date / Time No Known Allergies Allergy Verified 04/08/24 09:37 Family History Uncle Cancer Mother CVA (cerebral vascular accident) Surgical History Hx of colonoscopy History of vascular access device History of left heart catheterization (04/29/21) Hx of lymph node biopsy History of tonsillectomy and adenoidectomy History of wisdom tooth extraction Social History Smoking Status: Never smoker second hand exposure: No alcohol intake: never substance use type: does not use caffeine: Yes what type of physical activity do you participate in: none frequency: does not exercise ROS Constitutional Constitutional: Denies anorexia, chills or fatigue Eyes Eyes: Denies blurry vision ENT HEENT: Denies abnormal hearing Cardiovascular Cardiovascular: Denies chest pain Respiratory/Chest Respiratory/Chest: Denies cough or dyspnea Gastrointestinal Gastrointestinal: Denies abdominal pain Genitourinary Genitourinary: Denies change in urinary stream or difficulty urinating Musculoskeletal Musculoskeletal: Denies abnormal gait Integumentary Integumentary: Denies jaundice Vital Signs Vital Signs Vital Signs: 04/08/24 09:38 04/08/24 09:38 Temperature 98.1 F Temperature Source Temporal Pulse Rate 88 Respiratory Rate 16 Respiratory Pattern Normal Blood Pressure 137/82 H Blood Pressure Mean 100 Blood Pressure Source Monitor Blood Pressure Position Semi-Fowlers Blood Pressure Location Left Arm Pulse Ox 99 Oxygen Delivery Method Room Air Weight Weight: 171 lb 15.369 oz Body Mass Index (BMI) 27.7 Physical Exam Const oriented x3 and no apparent distress Resp normal respiratory effort Cardio regular rate and regular rhythm GI soft to palpation and non-tender Extremity normal to inspection Assessment & Plan Assessment/Plan (1) Encounter for adjustment and management of vascular access device: PLAN: The patient has an ulceration of the skin overlying the port from several punctures right in the middle of the port. I believe he needs a new port and the old one removed. The catheter is not functioning. I discussed placing a new chest port on the right and then removing the old one on the left. I discussed this in detail with the patient as well as the risks of bleeding, infection, injury other organ such as pneumothorax. Patient understands all the risks and agrees to proceed. Nick Warren MD Pager: [facility] [address] [place] [address], [address] [place] [address] Office:
[2024-04-08] MEDS: Cefazolin 2 GM in 0.9% Normal Saline (100mL Bag) 100 ML IV (12:27)
[2024-04-08] MEDS: Bupivacaine Mpf 0.5% 30 ML VIAL (12:50)
[2024-04-08] MEDS: Lidocaine 1%/Epi 1:200 (30ml) 30 ML AMPUL (12:50)
--- NOTE | 2024-04-08 13:04 | PCM.POST.ANE ---
Anesthesia: Postop Eval I Current Vital Signs Temperature: 97.1 F Pulse Rate: 76 Blood Pressure: 128/60 Respiratory Rate: 16 Pulse Ox: 97 Oxygen Delivery Method: Room Air Assessment Airway patent: Yes Spontaneous unlabored respirations: Yes Mental status: Awake and Calm nausea: No Vomiting: No Anesthesia Complication: No Fluid Hydration Crystalloid volume administer (ml): 500 Total IV fluid infused: 500 Progress Note Anesthesia document: Postop Eval 1 completed: Yes
[2024-04-08 13:05] VITALS: BP 128/60; BP 137/82; PULSE 74; PULSE 76; RESP 16; TEMP -12.7; TEMP 36.2; TEMP 9; O2SAT 96; O2SAT 97
[2024-04-08 13:10] VITALS: BP 137/82; BP 152/61; PULSE 77; RESP 16; O2SAT 98
--- NOTE | 2024-04-08 13:12 | RAD_ITS ---
HISTORY: post op port placement. TECHNIQUE: XR Chest 1 View. COMPARISON: 01/29/2024. FINDINGS: CARDIOMEDIASTINAL BORDERS: Cardiac silhouette and mediastinal contour unchanged in size with calcification of the aortic knob. Right chest wall port with catheter tip at the level of the distal superior vena cava. LUNGS: Increased opacities in the right mid to lower lung Small nodules or scars in the left upper, mid, and lower lung again seen. PLEURA: Interval development of mild to moderate right pleural effusion without pneumothorax. OSSEOUS STRUCTURES: Degenerative change. RAD/Chest 1 View (Portable) IMPRESSION: Satisfactory appearance of right chest wall port without pneumothorax. Right pleural effusion with interval development of right basilar atelectasis or pneumonia. Recommend follow-up to resolution. Electronically Signed: Cassie Sevilla MD at 13:33 EDT ,
--- NOTE | 2024-04-08 13:13 | OP.PCM_ITS ---
Report of Operation Date of Procedure: 04/08/24 Pre-Operative Diagnosis: Nonfunctioning left chest port with ulceration of over lying skin Post-Operative Diagnosis: Same Surgery/Procedure Performed:: 1. Ultrasound and fluoroscopy guided Right chest port utilizing right IJ 2. Left port removal Type of Anesthesia: Local MAC Specimen's removed: Left port Estimated Blood Loss (mL): 10 Description of Procedure: After obtaining informed consent patient was brought back to the operating room MAC anesthesia was induced and the Right chest and neck were prepped in normal sterile fashion. Ultrasound was used to evaluate both IJs and the Right IJ was selected. Next, using a needle, the Right IJ was accessed and a guidewire was passed on into the superior vena cava under fluoroscopy guidance. A small incision was made over the puncture site and the dilator introducer was placed over the guidewire. Next this was capped and the pocket was made for the port. 1% lidocaine with epinephrine was injected in the proposed port site. An incision was made with scalpel. Electrocautery was used to make a pocket under the skin and subcutaneous tissue. Hemostasis was obtained. Next, the catheter was tunneled up to the neck incision site and placed through the introducer. The peel-away introducer was removed and the position of the catheter was confirmed on fluoroscopy. Next, the catheter was trimmed and attached to the port with the locking device. Interrupted 2-0 Vicryl sutures were used to anchor the port to the chest wall and then the port was placed inside the pocket. The pocket was then flushed with saline and the port irrigated with saline. There was good blood return and the port flushed easily. Next, heparin was injected into the port. The skin was closed with subcutaneous interrupted 3-0 Vicryl sutures. A single 3-0 Vicryl sutures placed under the skin at the neck incision site. Steri-Strips were placed as well as op sites. Next the old port site on the left was prepped and draped. The prior incision was injected with local anesthetic. Incision was made with a scalpel and the port was sharply dissected free and removed. The cavity was irrigated and then closed with interrupted 3-0 Vicryl sutures. Steri-Strips were applied. Bandage was applied over the Steri-Strips. Patient tolerated procedure well, was taken to PACU in stable condition. Chest x-ray will be obtained. Grafts/Implants Used: 8 [place] PowerPort on the right Admit VTE Documentation VTE Mechan Device Prophylaxis: SCD's
[2024-04-08 13:15] VITALS: BP 137/82; BP 152/61; PULSE 77; RESP 16; O2SAT 98
--- NOTE | 2024-04-08 13:16 | EX.PCM.DISCH ---
Discharge Instructions Procedure Port-A-Cath Diet Discharge Diet: Light diet - advance as tolerated (Pain medication may cause nausea. You should typically eat light foods as you take your pain medication.) Activity Discharge Activity: Return to Normal Activity and May Shower (with your bandage in place in 1-2 days after surgery. DO NOT SHOWER WHEN YOUR PORT IS ACCESSED.) Dressing / Incision Call your doctor if your incision/area has: Continuous Slow Oozing, Sudden Increased Bleeding, Increased Pain/ Swelling, Increased Redness and Foul Smelling Discharge Call your doctor if you observe: Fever of 101 or Higher Remove Dressing in: 2 days Cleanse incision/area with: Soap & Water Additional Dressing/Incision Instructions:: Alternate ibuprofen and Tylenol for pain control Follow Up Care Please Follow Up With: Nick Warren MD When: as needed [phone] Test Results: Test results from this visit will be discussed in further detail at your follow-up appointment, if applicable. Discharge Plan Admission Attending Provider: Nick Warren Primary Care Provider: Lisandro Zaldivar Instructions Print Language: [place] Discharge Orders/Prescriptions Prescriptions: No Action levothyroxine 125 mcg tablet 125 mcg PO MOTUWETHFR metoprolol succinate [Toprol XL] 25 mg tablet extended release 24 hr 25 mg PO DAILY Qty: 90 3RF multivitamin 1 EACH tablet 1 ea PO DAILY omeprazole 20 MG capsule 10 mg PO DAILY acetaminophen 325 MG tablet 650 mg PO Q4H PRN PRN (Reason: Mild-Moderate Pain (1-5/10)) 0RF levothyroxine 125 mcg capsule 250 mcg PO SUSA hydrocortisone 5 mg tablet 5 mg PO 1300 hydrocortisone 5 mg tablet 10 mg PO DAILY Rx Instructions: Take 10 mg daily in the morning and 5 mg daily in the afternoon furosemide 40 mg tablet 40 mg PO MOWEFR (DME) Handicap Placard See Rx Instructions .Route .MEDSUPPLY Qty: 1 0RF Rx Instructions: As directed atorvastatin 40 mg tablet 40 mg PO DAILY Qty: 90 3RF Referrals / Follow Up: Lisandro Zaldivar MD [Primary Care Provider] - Disposition Disposition (needs filled in before D/C Order can be placed): Home, Self Care
[2024-04-08 13:20] VITALS: BP 136/77; BP 137/82; PULSE 88; RESP 16; TEMP 36.6; O2SAT 98
[2024-04-08 13:55] VITALS: BP 137/82
--- NOTE | 2024-04-08 16:42 | POSTOPAN2_ITS ---
Anesthesia Postop Eval I Sum Postop Eval Completion status Anesthesia document: Postop Eval 1 completed: Yes Anesthesia Postop Eval I Summary Anesthesia Postop Eval I Summary: Anesthesia Postop Eval I: Assessment Summary Airway patent Yes 04/08/24 13:05 MACHINE MAINTENANCE.MDOT Spontaneous unlabored Yes 04/08/24 13:05 MACHINE MAINTENANCE.MDOT respirations Mental status Awake,Calm 04/08/24 13:05 MACHINE MAINTENANCE.MDOT nausea No 04/08/24 13:05 MACHINE MAINTENANCE.MDOT Vomiting No 04/08/24 13:05 MACHINE MAINTENANCE.MDOT Anesthesia Postop Eval I: Fluid Summary Crystalloid volume administer 500 04/08/24 13:05 MACHINE MAINTENANCE.MDOT (ml) Colloids volume administered ( ml) Blood Product volume administered (ml) Total IV fluid infused 500 04/08/24 13:05 MACHINE MAINTENANCE.MDOT Anesthesia Postop Eval I: Summary Notes Anesthesia Complication No 04/08/24 13:05 MACHINE MAINTENANCE.MDOT Anesthesia Complication Comment: Post-operative progress note Anesthesia: Postop Eval II Evaluation Mental status: Awake and Calm Pain Level: 0 nausea: No Vomiting: No
--- NOTE | 2024-04-08 16:42 | PCM.POSTANE2 ---
Anesthesia Postop Eval I Sum Postop Eval Completion status Anesthesia document: Postop Eval 1 completed: Yes Anesthesia Postop Eval I Summary Anesthesia Postop Eval I Summary: Anesthesia Postop Eval I: Assessment Summary Airway patent Yes 04/08/24 13:05 ECONOMIC ANALYST.MDOT Spontaneous unlabored Yes 04/08/24 13:05 ECONOMIC ANALYST.MDOT respirations Mental status Awake,Calm 04/08/24 13:05 ECONOMIC ANALYST.MDOT nausea No 04/08/24 13:05 ECONOMIC ANALYST.MDOT Vomiting No 04/08/24 13:05 ECONOMIC ANALYST.MDOT Anesthesia Postop Eval I: Fluid Summary Crystalloid volume administer 500 04/08/24 13:05 ECONOMIC ANALYST.MDOT (ml) Colloids volume administered ( ml) Blood Product volume administered (ml) Total IV fluid infused 500 04/08/24 13:05 ECONOMIC ANALYST.MDOT Anesthesia Postop Eval I: Summary Notes Anesthesia Complication No 04/08/24 13:05 ECONOMIC ANALYST.MDOT Anesthesia Complication Comment: Post-operative progress note Anesthesia: Postop Eval II Evaluation Mental status: Awake and Calm Pain Level: 0 nausea: No Vomiting: No
== END 2024-04-08 13:57 | disposition home or self-care (01) ==
LOC: SDC 09:09 → AC 09:09
PROVIDERS: PCP Family Medicine; Referring Provider Surgery; Visit Provider Surgery
PROC: (CPT 36561; principal; 2024-04-08 10:45)
DX: Z45.2 Encounter for adjustment and management of vascular access device (principal); L98.499 Non-pressure chronic ulcer of skin of other sites with unspecified severity; E78.00 Pure hypercholesterolemia, unspecified; I10 Essential (primary) hypertension; I25.10 Atherosclerotic heart disease of native coronary artery without angina pectoris; E03.9 Hypothyroidism, unspecified; Z79.899 Other long term (current) drug therapy
CPT/HCPCS: 36561; 00532; 71045; 77001; J7120; C1788; J2405

== ENCOUNTER 2024-05-20 06:13 | Emergency (ER) | payer MEDICARE, SELFPAY ==
[2024-05-20 06:13] VITALS: BP 170/88; PULSE 83; RESP 15; TEMP 36.4; O2SAT 95
--- NOTE | 2024-05-20 06:39 | EX.ED.DYSGE1 ---
HPI History of Present Illness Chief Complaint: Lower Extremity Injury Informant: patient Narrative Narrative: Patient is a 79-year-old male with past medical history of hypertension hyperlipidemia and non-small cell lung cancer. He denies any recent trauma or excessive activity but states last night when he was getting ready for bed noticed pain in his right hip that would radiate down the back of his leg towards his knee. He states the pain is worse when he sits on his buttocks or with certain motions. He denies any loss of bowel or bladder control or IV drug use. He denies any hematuria or dysuria. He states that he could not sleep secondary to the pain and therefore comes in for evaluation [facility] Medical History Wears glasses History of steroid therapy High cholesterol Gastric reflux Non-smoker Shortness of breath on exertion History of edema History of echocardiogram History of rheumatic fever Hypertension Cardiology follow-up encounter Dehydration Adrenal insufficiency Weakness Elevated bilirubin Hyponatremia Imbalance Nausea Thrombocytopenia Pleural effusion, bilateral Stomatitis Drug induced neutropenia Impaired glucose tolerance Encounter for chemotherapy management Edema of extremities Atherosclerotic heart disease of [place] coronary artery without angina pectoris Bilateral lower leg cellulitis Nonrheumatic aortic (valve) stenosis Obesity Elevated liver enzymes Essential (primary) hypertension Chemotherapy management, encounter for Bacteremia (12/21/19) Rash Hoarseness of voice Encounter for adjustment and management of vascular access device Immunotherapy encounter Anemia Localized swelling, mass and lump, neck Encounter for education Hypothyroidism HLD (hyperlipidemia) Non-small cell carcinoma of lung Pneumothorax, left Primary lung cancer 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 Home Medications ?Medication ?Instructions ?Recorded ?Last Taken ?Type multivitamin 1 ea PO DAILY supplement 10/24/16 12/21/19 08:00 History omeprazole 20 mg capsule,delayed 10 mg PO DAILY stomach 10/24/16 12/21/19 08:00 History release acetaminophen 325 mg tablet 650 mg (2 x 325 mg) PO Q4H PRN PRN 02/04/19 Unknown Rx Mild-Moderate Pain (1-5/10) levothyroxine 125 mcg tablet 125 mcg PO MOTUWETHFR 01/06/20 04/29/21 History Handicap Placard #1 ea 07/30/23 Unknown Rx atorvastatin 40 mg tablet 40 mg PO DAILY #90 tabs 08/14/23 Unknown Rx furosemide 40 mg tablet 40 mg PO MOWEFR 04/07/24 Unknown History hydrocortisone 5 mg tablet 5 mg PO 1300 04/07/24 Unknown History hydrocortisone 5 mg tablet 10 mg PO DAILY 04/07/24 Unknown History levothyroxine 125 mcg capsule 250 mcg PO SUSA 04/07/24 Unknown History metoprolol succinate 25 mg 25 mg PO DAILY #90 tabs 04/26/24 Unknown Rx tablet,extended release 24 hr (Toprol XL) gabapentin 300 mg capsule 300 mg PO BID 10 days #20 caps 05/20/24 Unknown Rx methocarbamol 500 mg tablet 500 mg PO 4X/DAY PRN Muscle 05/20/24 Unknown Rx pain/spasm #40 tabs oxycodone-acetaminophen 5 mg-325 1 tab PO Q6H PRN pain 3 days #12 05/20/24 Unknown Rx mg tablet (Percocet) tabs Allergy/AdvReac Type Severity Reaction Status Date / Time No Known Allergies Allergy Verified 05/20/24 06:13 Family History Uncle Cancer Mother CVA (cerebral vascular accident) Surgical History Hx of colonoscopy History of vascular access device History of left heart catheterization (04/29/21) Hx of lymph node biopsy History of tonsillectomy and adenoidectomy History of wisdom tooth extraction Social History Smoking Status: Never smoker second hand exposure: No alcohol intake: never substance use type: does not use caffeine: Yes what type of physical activity do you participate in: none frequency: does not exercise ROS ROS ED Constitutional Constitutional ED: Denies chills or fever(s) ENT ENT ED: Denies sore throat Cardiovascular Cardiovascular: Denies chest pain Respiratory/Chest Respiratory/Chest: Denies cough or dyspnea Gastrointestinal Gastrointestinal: Denies abdominal pain, diarrhea, nausea or vomiting Genitourinary Genitourinary ED: Denies dysuria or hematuria Musculoskeletal Musculoskeletal: Reports back pain and other Details: Positive right hip pain Integumentary Denies Abrasions or rash Neurologic Neurologic: Denies headache(s) or paresthesias Hematologic/Lymphatic Hematologic/Lymphatic: Denies easy bleeding or easy bruising EXAM Physical Exam Const Vital Signs: 05/20/24 06:13 05/20/24 06:53 Temperature 97.6 F L 98 F Temperature Source Oral Pulse Rate 83 82 Respiratory Rate 15 18 Blood Pressure 170/88 H 154/68 H Blood Pressure Mean 115 96 Pulse Ox 95 98 Oxygen Delivery Method Room Air Positive well nourished and well developed General Appearance ED: well developed; Negative for pallor HEENT HEENT Narrative: Normocephalic atraumatic Eyes PERRL and EOMs intact bilaterally General Eye ED: Negative for scleral icterus Neck supple Resp normal respiratory effort Resp Narrative: Breath sounds are diminished throughout with faint rhonchi in the bilateral lower lobes but no signs of respiratory distress Cardio regular rate and regular rhythm Rate: other Other Details: Radial and carotid pulses are equal and symmetric GI normal to inspection, nondistended, normoactive bowel sounds, non-tender, non-distended and no masses GI Narrative: No voluntary guarding or rigidity or pulsatile mass Auscultation: normoactive bowel sounds Palpation: soft Back/Spine no CVA tenderness Back/Spine Narrative: No bony deformity or step-off of the thoracic or lumbar spine no midline tenderness to palpation No saddle anesthesia. Negative straight leg raise. No clonus or Babinski. Patellar reflexes are plus 1 out of 4 bilaterally. Positive Rudy sign on right. There is pain with palpation over top of the right piriformis muscle belly. No overlying soft tissue changes to suggest trauma or infection. Extremity Extremity Narrative: Patient has +1 pitting edema to the bilateral lower extremities that is equal and symmetric. Negative Homans' sign bilaterally. No bony deformity or joint effusion. Pelvis is stable there is no shortening or external rotation of either lower extremity. No pain over top the greater trochanter. No pain with palpation of the bilateral inguinal region. Neuro oriented x3 and CN's II-XII intact bilaterally Sensorium / Orientation: alert Psych mental status grossly normal Skin no rashes or lesions noted and no wounds General Skin Exam: Negative for jaundice or pallor MDM MDM MDM Narrative Medical decision making narrative: Patient arrived to ER hypertensive otherwise with stable vitals. He denied any recent trauma or excessive activity and my concern for a hip fracture versus lumbar compression fracture is low. He also denied loss of bowel or bladder control or IV drug use so concern for cauda equina or epidural abscess is low. He did not have any obvious neurologic findings on physical exam going against spinal stenosis or herniated disc. Also he had no soft tissue changes to suggest cellulitis or abscess or herpes zoster. Clinically with pain with palpation over top the right piriformis with positive Rudy sign and pain radiating towards his knee this is most likely piriformis syndrome. I discussed with patient the potential of x-raying his back and hip in order to ensure there is no pathologic fracture secondary to his history of non-small cell lung cancer. Patient states that he does not feel that is necessary and therefore does not want imaging studies obtained. Therefore at this time as his history and exam indicate this is most likely musculoskeletal in nature he will be given symptomatic medication and is otherwise safe for discharge History & Record Review Discussion w/independent historian: Patient Discharge Plan Triage Chief Complaint: Lower Extremity Injury ED Provider: Fernando Odonnell Dx/Rx/DC Orders Clinical Impression: Piriformis syndrome of right side, Non-small cell carcinoma of lung, HLD (hyperlipidemia), Essential (primary) hypertension Instructions: Back Exercises: Hip Rotator Stretch, ED Sciatica Prescriptions: New oxycodone-acetaminophen [Percocet] 5-325 mg tablet 1 tab PO Q6H PRN (Reason: pain) 3 Days Qty: 12 0RF gabapentin 300 mg capsule 300 mg PO BID 10 Days Qty: 20 0RF methocarbamol 500 mg tablet 500 mg PO 4X/DAY PRN (Reason: Muscle pain/spasm) Qty: 40 0RF No Action levothyroxine 125 mcg tablet 125 mcg PO MOTUWETHFR multivitamin 1 EACH tablet 1 ea PO DAILY omeprazole 20 MG capsule 10 mg PO DAILY acetaminophen 325 MG tablet 650 mg PO Q4H PRN PRN (Reason: Mild-Moderate Pain (-02/18)) 0RF levothyroxine 125 mcg capsule 250 mcg PO SUSA hydrocortisone 5 mg tablet 5 mg PO 1300 hydrocortisone 5 mg tablet 10 mg PO DAILY Rx Instructions: Take 10 mg daily in the morning and 5 mg daily in the afternoon furosemide 40 mg tablet 40 mg PO MOWEFR (DME) Handicap Placard See Rx Instructions .Route .MEDSUPPLY Qty: 1 0RF Rx Instructions: As directed atorvastatin 40 mg tablet 40 mg PO DAILY Qty: 90 3RF metoprolol succinate [Toprol XL] 25 mg tablet extended release 24 hr 25 mg PO DAILY Qty: 90 3RF Primary Care Provider: Lisandro Zaldivar Referrals: Lisandro Zaldivar MD [Primary Care Provider] - Activity Restrictions/Additional Instructions: Please stretch and heat your low back/hip to help reduce pain and speed healing. Take the prescribed medication as directed to help control pain and return to the ER should you have any further concerns Print Language: Telugu Disposition Disposition: Home, Self Care Discharge Date/Time: 05/20/24 06:54
[2024-05-20] MEDS: oxyCODONE 5 MG Tablet PO (06:52)
[2024-05-20] MEDS: Gabapentin 300 MG Capsule PO (06:52)
[2024-05-20 06:53] VITALS: BP 154/68; PULSE 82; RESP 18; TEMP 36.6; O2SAT 98
== END 2024-05-20 06:54 | disposition home or self-care (01) ==
PROVIDERS: Emergency Provider Emergency Medicine; PCP Family Medicine; Visit Provider Emergency Medicine
DX: G57.01 Lesion of sciatic nerve, right lower limb (principal); C34.90 Malignant neoplasm of unspecified part of unspecified bronchus or lung; I10 Essential (primary) hypertension; I25.10 Atherosclerotic heart disease of native coronary artery without angina pectoris; M25.551 Pain in right hip; E78.00 Pure hypercholesterolemia, unspecified; K21.9 Gastro-esophageal reflux disease without esophagitis
CPT/HCPCS: 99282

== ENCOUNTER → 2024-05-23 | Outpatient (CLI) | payer MEDICARE, SELFPAY ==
--- NOTE | 2024-05-23 13:17 | RAD_ITS ---
INDICATION: PAIN EXAMINATION/TECHNIQUE: X-RAY - XR Spine Lumbar Min 4 Views COMPARISON: No relevant prior comparison study available FINDINGS: VERTEBRAE: Preserved vertebral body height. No fracture. No spondylolisthesis. Preservation of the normal lumbar lordosis. No substantial scoliosis. DISCS: Narrowing of L3-L4 and L4-L5 disc spaces. Endplate spondylosis at multiple levels. INCLUDED ABDOMEN: Atherosclerotic calcifications of the abdominal aorta. RAD/L/S Spine Min 4 Views IMPRESSION: Degenerative changes of the lumbar spine as described above. Electronically Signed: Demetrius Sorto MD at 13:31 EDT ,
--- NOTE | 2024-05-23 13:17 | RAD_ITS ---
INDICATION: Right-sided pain EXAMINATION/TECHNIQUE: X-RAY - XR Hip Unilateral with Pelvis when performed; 2-3 Views COMPARISON: Prior study dated: Right hip of 09/29/2011. FINDINGS: PELVIC BONES: No displaced fracture, destructive or sclerotic lesions. Note that overlapping bowel shadows may however obscure fine detail. Sacroiliac joints are unremarkable. No widening of the pubic symphysis. HIPS: Mild narrowing of the right hip joint. Small marginal degenerative spurs. No displaced fracture seen in this frontal view. SOFT TISSUES: No soft tissue swelling or gas. RAD/HIP, UNI W/ Pelvis 2-3 Views IMPRESSION: Mild narrowing of the right hip joint. Electronically Signed: Demetrius Sorto MD at 13:33 EDT ,
== END | disposition home or self-care (01) ==
LOC: MTRAD 13:07
PROVIDERS: PCP Family Medicine; Referring Provider Registered Nurse; Visit Provider Registered Nurse
DX: M25.551 Pain in right hip (principal)
CPT/HCPCS: 72110; 73502

== ENCOUNTER 2024-06-05 23:56 | Emergency (ER) | payer MEDICARE, SELFPAY ==
[2024-06-05 23:56] VITALS: BP 184/81; PULSE 71; RESP 18; TEMP 36.5; O2SAT 97; BMI 27.3
--- NOTE | 2024-06-06 00:51 | EDS_ITS ---
HPI History of Present Illness Chief Complaint: Lower Extremity Injury Informant: patient Narrative Narrative: Patient is a 79-year-old male with past medical history of hypertension hyperlipidemia hypothyroidism and GERD. He was seen previously secondary to right-sided leg pain and had x-rays of his low back and leg which revealed no obvious bony abnormalities just arthritic changes. He has been placed on gabapentin and meloxicam and tramadol. He states that he is able to function during the day but at night when he lays down and tries to go to bed the pain is severe and keeps him from sleeping. He reports normal daily activity but denies any direct trauma. He denies any previous history of DVT/PE. He states that based on the worsening pain this evening the fact he cannot sleep he presents for evaluation [facility] Medical History Wears glasses History of steroid therapy High cholesterol Gastric reflux Non-smoker Shortness of breath on exertion History of edema History of echocardiogram History of rheumatic fever Hypertension Cardiology follow-up encounter Dehydration Adrenal insufficiency Weakness Elevated bilirubin Hyponatremia Imbalance Nausea Thrombocytopenia Pleural effusion, bilateral Stomatitis Drug induced neutropenia Impaired glucose tolerance Encounter for chemotherapy management Edema of extremities Atherosclerotic heart disease of [place] coronary artery without angina pectoris Bilateral lower leg cellulitis Nonrheumatic aortic (valve) stenosis Obesity Elevated liver enzymes Essential (primary) hypertension Chemotherapy management, encounter for Bacteremia (12/21/19) Rash Hoarseness of voice Encounter for adjustment and management of vascular access device Immunotherapy encounter Anemia Localized swelling, mass and lump, neck Encounter for education Hypothyroidism HLD (hyperlipidemia) Non-small cell carcinoma of lung Pneumothorax, left Primary lung cancer 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 Home Medications ?Medication ?Instructions ?Recorded ?Last Taken ?Type acetaminophen 325 mg tablet 650 mg (2 x 325 mg) PO Q4H PRN PRN 02/04/19 Unknown Rx Mild-Moderate Pain (1-5/10) levothyroxine 125 mcg tablet 125 mcg PO MOTUWETHFR 01/06/20 04/29/21 History Handicap Placard #1 ea 07/30/23 Unknown Rx atorvastatin 40 mg tablet 40 mg PO DAILY #90 tabs 08/14/23 Unknown Rx furosemide 40 mg tablet 40 mg PO MOWEFR 04/07/24 Unknown History levothyroxine 125 mcg capsule 250 mcg PO SUSA 04/07/24 Unknown History gabapentin 300 mg capsule 300 mg PO BID 10 days #20 caps 05/20/24 Unknown Rx methocarbamol 500 mg tablet 500 mg PO 4X/DAY PRN Muscle 05/20/24 Unknown Rx pain/spasm #40 tabs gabapentin 300 mg capsule 300 mg PO BID 05/25/24 Unknown History meloxicam 7.5 mg tablet 7.5 mg PO DAILY 05/25/24 Unknown History tramadol 50 mg tablet 50 mg PO TID PRN pain 05/25/24 Unknown History hydrocortisone 5 mg tablet See Rx Instructions PO .COMPLEX 06/06/24 Unknown Rx #90 tabs methocarbamol 500 mg tablet 500 mg PO 4X/DAY PRN Muscle 06/06/24 Unknown Rx pain/spasm #40 tabs oxycodone-acetaminophen 5 mg-325 1 tab PO Q6H PRN pain 3 days #12 06/06/24 Unknown Rx mg tablet (Percocet) tabs Allergy/AdvReac Type Severity Reaction Status Date / Time No Known Allergies Allergy Verified 06/05/24 23:58 Family History Uncle Cancer Mother CVA (cerebral vascular accident) Surgical History Hx of colonoscopy History of vascular access device History of left heart catheterization (04/29/21) Hx of lymph node biopsy History of tonsillectomy and adenoidectomy History of wisdom tooth extraction Social History Smoking Status: Never smoker second hand exposure: No alcohol intake: never substance use type: does not use caffeine: Yes what type of physical activity do you participate in: none frequency: does not exercise ROS ROS ED Constitutional Constitutional ED: Denies chills or fever(s) ENT ENT ED: Denies sore throat Cardiovascular Cardiovascular: Denies chest pain Respiratory/Chest Respiratory/Chest: Denies cough or dyspnea Gastrointestinal Gastrointestinal: Denies abdominal pain, diarrhea, nausea or vomiting Genitourinary Genitourinary ED: Denies dysuria Musculoskeletal Musculoskeletal: Reports back pain and other Details: Positive right hip pain Integumentary Denies Abrasions or rash Neurologic Neurologic: Denies headache(s), paresthesias or weakness Hematologic/Lymphatic Hematologic/Lymphatic: Denies easy bleeding or easy bruising EXAM Physical Exam Const Vital Signs: 06/05/24 23:56 Temperature 97.7 F L Temperature Source Oral Pulse Rate 71 Respiratory Rate 18 Blood Pressure 184/81 H Blood Pressure Mean 115 Pulse Ox 97 Oxygen Delivery Method Room Air Positive well nourished and well developed General Appearance ED: well developed; Negative for pallor HEENT HEENT Narrative: Normocephalic atraumatic Eyes PERRL and EOMs intact bilaterally General Eye ED: Negative for scleral icterus Neck supple Resp normal respiratory effort and clear to auscultation bilaterally Cardio regular rate and regular rhythm Back/Spine no CVA tenderness Back/Spine Narrative: No bony deformity or step-off of the thoracic or lumbar spine no midline tenderness to palpation No saddle anesthesia. Negative straight leg raise. No clonus or Babinski. Patellar reflexes are plus 1 out of 4 bilaterally No overlying soft tissue changes to suggest trauma or infection Extremity Extremity Narrative: Right lower extremity is neurovascularly intact. No obvious bony deformity or joint effusion. There is pain with palpation over top the right piriformis muscle belly. Positive Rudy sign. Compartments are soft and compressible going against compartment syndrome. Patient still has full active and passive range of motion. Neuro oriented x3 and CN's II-XII intact bilaterally Sensorium / Orientation: alert Psych mental status grossly normal Skin no rashes or lesions noted and no wounds General Skin Exam: Negative for jaundice or pallor MDM MDM MDM Narrative Medical decision making narrative: Patient arrived to the ER hypertensive but has a past medical history of this. He has been seen secondary to this pain recently and had x-rays obtained which were negative. He denies any recent trauma or excessive activity and therefore my concern for fracture or dislocation is low as well. He does not have any findings of overlying infection such as cellulitis or abscess or shingles and he has full active range of motion going against a septic joint. Also compartments are soft and compressible going against compartment syndrome. There is concern this could be potentially nerve impingement coming from the low back versus a potential ligamentous tear such as a labrum in the right hip or a stress fracture. However in order to truly see these he will need an MRI which is not obtainable in the ER and I feel a CT scan is just minimally better than the x- rays it would not provide the proper information that is needed. Therefore this time I do not feel there is need for workup as he has had imaging in the past exam does not show signs of infection or compartment syndrome and my concern for underlying bony abnormality such as fracture or dislocation is low. This plan of care was discussed with the patient he is agreeable to it and therefore be discharged at this time and can follow-up with his family doctor to discuss outpatient imaging studies History & Record Review Discussion w/independent historian: Patient Discharge Plan Triage Chief Complaint: Lower Extremity Injury ED Provider: Fernando Odonnell Dx/Rx/DC Orders Clinical Impression: Osteoarthritis of right hip, HLD (hyperlipidemia), Essential (primary) hypertension, Hypothyroidism Instructions: OA Hip Prescriptions: New methocarbamol 500 mg tablet 500 mg PO 4X/DAY PRN (Reason: Muscle pain/spasm) Qty: 40 1RF oxycodone-acetaminophen [Percocet] 5-325 mg tablet 1 tab PO Q6H PRN (Reason: pain) 3 Days Qty: 12 0RF No Action levothyroxine 125 mcg tablet 125 mcg PO MOTUWETHFR gabapentin 300 mg capsule 300 mg PO BID tramadol 50 mg tablet 50 mg PO TID PRN (Reason: pain) meloxicam 7.5 mg tablet 7.5 mg PO DAILY acetaminophen 325 MG tablet 650 mg PO Q4H PRN PRN (Reason: Mild-Moderate Pain (-02/18)) 0RF levothyroxine 125 mcg capsule 250 mcg PO SUSA furosemide 40 mg tablet 40 mg PO MOWEFR gabapentin 300 mg capsule 300 mg PO BID 10 Days Qty: 20 0RF methocarbamol 500 mg tablet 500 mg PO 4X/DAY PRN (Reason: Muscle pain/spasm) Qty: 40 0RF (DME) Handicap Placard See Rx Instructions .Route .MEDSUPPLY Qty: 1 0RF Rx Instructions: As directed atorvastatin 40 mg tablet 40 mg PO DAILY Qty: 90 3RF hydrocortisone 5 mg tablet See Rx Instructions PO .COMPLEX Qty: 90 2RF Rx Instructions: Take 10 mg daily in the morning and 5 mg daily in the afternoon Primary Care Provider: Lisandro Zaldivar Referrals: Lisandro Zaldivar MD [Primary Care Provider] - Activity Restrictions/Additional Instructions: Please continue your gabapentin and meloxicam and add the Robaxin/methocarbamol for improved symptom control. Stop the tramadol/Ultram at this time and begin taking the Percocet/oxycodone for improved pain relief. Discussed obtaining a MRI of your low back as well as right hip with your family doctor in order to assess for nerve impingement versus ligamentous tendon or muscular injury or even potential stress fracture as a cause of your recurrent pain. Return to the ER should you have any further concerns Print Language: [place] Disposition Disposition: Home, Self Care Discharge Date/Time: 06/06/24 01:08
[2024-06-06] MEDS: Orphenadrine 100 MG Tablet PO (01:02)
[2024-06-06] MEDS: oxyCODONE 5 MG Tablet 10 MG PO (01:02)
[2024-06-06 01:06] VITALS: BP 177/81; PULSE 74; RESP 18; TEMP 36.4; O2SAT 97
== END 2024-06-06 01:08 | disposition home or self-care (01) ==
PROVIDERS: Emergency Provider Emergency Medicine; PCP Family Medicine; Visit Provider Emergency Medicine
DX: M16.11 Unilateral primary osteoarthritis, right hip (principal); I25.10 Atherosclerotic heart disease of native coronary artery without angina pectoris; I10 Essential (primary) hypertension; E78.00 Pure hypercholesterolemia, unspecified; E03.9 Hypothyroidism, unspecified; K21.9 Gastro-esophageal reflux disease without esophagitis; Z79.1 Long term (current) use of non-steroidal anti-inflammatories (NSAID); Z79.890 Hormone replacement therapy; Z79.899 Other long term (current) drug therapy
CPT/HCPCS: 99283

== ENCOUNTER → 2024-06-06 | Outpatient (CLI) | payer MEDICARE, SELFPAY ==
--- NOTE | 2024-06-06 16:58 | MRI_ITS ---
EXAM: MR LUMBAR SPINE WITHOUT INTRAVENOUS CONTRAST CLINICAL INDICATION: RADICULOPATHY TECHNIQUE: Multiplanar and multisequence MR images of the lumbar spine without intravenous contrast. COMPARISON: No relevant prior studies available. FINDINGS: VERTEBRAE: Normal alignment of the lumbar vertebral bodies. Normal vertebral body height. No bone marrow edema. SPINAL CORD: Normal. Normal position and signal intensity of the conus medullaris. SOFT TISSUES: Normal. KIDNEYS AND URETERS: Bilateral renal cysts noted. No specific follow-up indicated. DISCS/SPINAL CANAL/NEURAL FORAMINA: T12-L1: Disc space narrowing. Circumferential disc bulging causes mild compression of the thecal sac. No spinal or neural foraminal stenosis. L1-L2: No disc space narrowing. Anterior disc bulging and osteophytosis. No spinal or neural foraminal stenosis. L2-L3: No disc space narrowing. Anterior disc bulging. No spinal or neural foraminal stenosis. L3-L4: Mild to moderate disc space narrowing mild left posterior lateral disc protrusion and bilateral facet arthropathy causes mild to moderate neural foraminal narrowing. Minimal narrowing of the spinal canal. L4-L5: Intact intervertebral disc. Mild disc bulging and facet arthropathy results in moderate neural foraminal narrowing. No spinal stenosis. L5-S1: Normal disc height and morphology. No disc protrusion. Facet arthropathy without spinal or neural foraminal stenosis. MRI/Spine Lumbar (Routine) IMPRESSION: Mild disc degeneration and facet arthropathy without significant spinal stenosis. Neural foraminal narrowing at L3-4 and L4-5 related to disc bulging and facet arthropathy. Electronically Signed: Matti Trimble MD at 8:45 EDT ,
== END | disposition home or self-care (01) ==
LOC: MRI 16:42
PROVIDERS: PCP Family Medicine; Referring Provider Anesthesiology Pain Medicine; Visit Provider Anesthesiology Pain Medicine
DX: M54.16 Radiculopathy, lumbar region (principal)
CPT/HCPCS: 72148

== ENCOUNTER → 2024-06-07 | Outpatient (CLI) | payer MEDICARE, SELFPAY ==
--- NOTE | 2024-06-07 07:06 | CT_ITS ---
STUDY: CT CHEST T ABDOMEN WITH CONTRAST REASON FOR EXAM: Male, 79 years old. F/U NSCLC IV CONTRAST ONLY RADIATION DOSAGE (If Supplied By Facility): CTDIvol = ( 15.33 ) mGy, DLP = ( 1129.59 ) mGycm TECHNIQUE: Transaxial imaging was performed following intravenous administration of IV 75mL [id number]-[id number]. Multiplanar coronal and sagittal images were reformatted. Individualized dose optimization techniques were used for this CT. COMPARISON: Comparison is made with prior study dated January 21, 2024. FINDINGS: CHEST A right-sided judith catheter seen with the tip in the superior vena cava. Once again, there is evidence of bilateral pleural effusions right greater than left with bibasilar compressive atelectasis is worse on the right side. There is almost complete collapse of the right lower lobe. The right pleural effusion has progressed. Volume loss in the posterior aspect of the right middle lobe. The previously seen heterogeneous linear density in the anterior lateral aspect of the left upper lobe has decreased in size. It presently measures 1 cm x 0.5 cm. Essentially stable pleural-based nodule at the left lung base measuring 2.34 cm x 1.5 cm. There are calcifications of the coronary arteries. Normal mediastinum. Normal hilar regions. Normal unenhanced pulmonary arteries. Normal aorta arch and descending thoracic aorta. There are degenerative changes of the thoracic spine. ABDOMEN Normal liver. Normal gallbladder and extrahepatic biliary system. Normal spleen. Normal pancreas. Normal bilateral adrenal glands. Stable small bilateral renal cysts. Normal visualized stomach. Normal small intestine. Normal colon. The appendix is visualized and appears normal. There is diffuse atherosclerotic calcification of the abdominal aorta, without a demonstrated aneurysm. Normal inferior vena cava. Normal retroperitoneum. Normal abdominal wall. There are diffuse degenerative changes of the visualized lumbar spine. CT/CT Chest AND Abd W/ Contrast IMPRESSION: Slight increase in size of the right pleural effusion with the compressive atelectasis of the right lower lobe and posterior aspect of the right middle lobe. Stable pleural-based nodule in the left lower lobe. Interval decrease in size of the previously seen linear density in the left upper lobe. Electronically Signed: Brayan Chaves MD at 14:56 EDT ,
[2024-06-07] MEDS: 0.9% Saline Lock 10 ML Syringe IV ×2 (07:15→07:25)
[2024-06-07] MEDS: 0.9 % NaCl (Sterile) Posiflush 10 mL IV ×2 (07:15→07:35)
== END | disposition home or self-care (01) ==
PROVIDERS: PCP Family Medicine; Referring Provider Internal Medicine Hematology & Oncology; Visit Provider Internal Medicine Hematology & Oncology
DX: C34.12 Malignant neoplasm of upper lobe, left bronchus or lung (principal); C77.1 Secondary and unspecified malignant neoplasm of intrathoracic lymph nodes; C78.00 Secondary malignant neoplasm of unspecified lung; C77.0 Secondary and unspecified malignant neoplasm of lymph nodes of head, face and neck
CPT/HCPCS: 71260; 74160; Q9967; A4216

== ENCOUNTER 2024-06-09 11:00 | Outpatient (RCR) | payer MEDICARE, SELFPAY ==
--- NOTE | 2024-05-31 10:50 | HP.PTEVAL_ITS ---
Patient's Visit Information Visit Information Visit Information: RAJAN ROSEN is a 79 year old M referred to Physical Therapy by MADHAVI Richards, [employer] with a diagnosis of R acute hip pain va sciatica. Date of Evaluation: 05/31/24 Physical Therapist: Tonny Garrett DPT Visit Plan Frequency: 2x /Week Duration: 4 Weeks Plan: Start with extension progression of lumbar spine. Monitor symptoms making sure then continue to centralize or diminish with these movements. Pt. is very stiff. Also monitor RLE strength with focus on R quad and R DF. I believe this is due to a nerve impingement from his spine. Patient to get lumbar injection later this date 05/31/24 HEP given 05/31/24: prone --> prone prop--> REIL. Use of lumbar roll when sitting NO US or IFC due to active lung CA. Pt. has chemo 1x every three weeks. Subjective Subjective: Pt. is here today for his initial evaluation with diagnosis of R acute hip pain vs sciatica. Pt. reports ~1 week ago he went to bed and woke up with intense pain. He ultimately went to ER. Was given some pills, with minimal relief. He did see pain management yesterday and is to follow up today with them for an injection. He reports mornings and evenings are bad. Pt. reports unable to get much sleep at all due to pain. Pt. did have an xray on his R hip some mild degeneration and a lumbar spine xray as well. L3/L4 and L4/L5 disc space narrowing. No NT noted, but did report that his R leg wants to give out on him at times, Its hard to trust it. He reports starting to use a rollator last week secondary to increased pain and due to not trusting his RLE. Pt. does receive chemotherapy every 3 weeks for lung CA. Pt. is hopeful to decrease his symptoms in order to get back to all recreational and household activities without limitations. Pain R groin region: Pain Intensity (Out of 10): 3 Pain Intensity Range: 2 and 10 Objective Objective: POSTURE: Pt. has a general flexed posture. Wide FEDE noted. PALPATION: Pt. has no increased pain throughout inner thigh. Pt. reports this is where is pain is at, but unable to increase symptoms with palpation. Pt. did have some tenderness at L3-L5 with hypomobility noted with spring testing. NEURO: Pt. has normal sensation throughout BLEs. I was unable to elicit patellar or achilles DTR bilaterally. ROM: LUMBAR SPINE in standing: flexion nil loss NE, ext max loss increase NW, SB min loss bilat NE, rotation min loss bilat NE. R hip: flexion nil loss NE, ER 30deg of motion (very tight but no pain), IR 20deg NE. Pt. has tight HS bilaterally. MMT: Pt. has symmetrical strength between BLEs, except R ankle DF and R knee ext. MMT: L knee: ext 37.9#, ankle DF 28.1#. R knee: ext 15.9#, R ankle DF 16.3#. GAIT: pt. is ambulating with rollator due to him catching his R foot at times and feeling like his R knee wants to give out on him. He had ambulated without antalgic pattern, but on multiple occasions he caught his R toe on the ground. He was able to correct each time. He did better when focusing on good R ankle DF. SKTC: NE, DKTC: NE. Prone lying: no pain prone prop: mild lumbar spine pain, no distal RLE symptoms REIL: limited motion no symptoms post exercise with walking I talked to him about using lumbar towel roll when sitting and to trial extension progression in prone as long as symptoms reduce. I also talked to him about his weakness in his R quad and DF resulting in his toe catching with gait. Cont. to monitor. Pt. to get injection later today Balance/Special Test Scores Lower Extremity Functional Score: 30 Goals Goal 1:: LTG: Pt. to sleep throughout the night without increase in symptoms. Goal Time Frame: 4-6 Weeks Goal 2:: LTG: Pt. to be able to ambulate with with rollator with good R foot clearance allowing for safe gait mobility. Goal Time Frame: 4-6 Weeks Goal 3:: LTG: pt. to have equal quad and DF strength in BLEs. Goal Time Frame: 4-6 Weeks Goal 4:: LTG: pt. to be able to ambulate with rollator without increase in R LE pain. Goal Time Frame: 4-6 Weeks Rehabilitation Potential Physical Therapy Diagnosis: Pt. has signs and symptoms consistent with R lumbar radiculopathy with subsequent RLE weakness and pain. He has marked quad and DF weakness in his RLE, he is also catching his toe with gait resulting in some unsafe situations. He did have some relief with extension progression this date and we will continue to progress this in PT. Rehabilitation Potential: Good Anticipated Interventions Patient/Client Instruction: Educate patient on: Condition, Plan of Care, Risk Factors and Benefits of Fitness Program For the Purpose of:: To improve decision making, To facilitate caregiver knowledge, To improve self management, To prevent re-injury, To improve ability to perform tasks related to life management and To improve tolerance to ADL's Therapeutic Exercise to Include: Strength training, Postural training, Flexibilty training, Passive ROM, Active ROM, Dynamic Lumbar Stabilization and Emeli Exercises For the Purpose of:: To decrease pain, To increase ROM, To improve nutrient delivery to tissue, To increase oxygenation perfusion, To improve muscle performance and motor function and To improve ability to perform ADL's Text: Thank you for the opportunity to evaluate your patient. For Medicare and Medicare HMO plans, please review the plan of care and approve it. It will need to be FAXED BACK to us at [phone] for Medicare purposes. For Medicare only, by signing this I certify the plan of care. Please let me know if there are questions or concerns regarding this plan of care. Physician Signature: Date:
== END 2024-06-09 19:00 | disposition home or self-care (01) ==
LOC: PT 11:00
PROVIDERS: PCP Family Medicine; Referring Provider Registered Nurse; Visit Provider Registered Nurse
DX: M25.551 Pain in right hip (principal); M54.30 Sciatica, unspecified side
CPT/HCPCS: 97110; 97161

== ENCOUNTER 2024-06-14 11:06 | Emergency (ER) | payer MEDICARE, SELFPAY ==
[2024-06-14] VITALS (9 sets, daily range): BP systolic 78–169; BP diastolic 34–95; PULSE 71–87; RESP 14–19; TEMP 35.6–36.6; O2SAT 95–100
--- NOTE | 2024-06-14 11:46 | CT_ITS ---
EXAM: CT HEAD WITHOUT INTRAVENOUS CONTRAST CLINICAL INDICATION: Confusion. TECHNIQUE: Multiple axial images were obtained of the head without intravenous contrast. This CT exam was performed using one or more of the following dose reduction techniques: automated exposure control, adjustment of the mA and/or kV according to patient size, and/or use of iterative reconstruction technique. RADIATION DOSE: CTDIvol = 44.99 mGy, DLP = 863.60 mGy-cm COMPARISON: CT head without contrast 03/30/2013. 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 Hypodensities in the periventricular white matter are chronic white matter ischemic changes. Mild increased cerebral atrophy accounting for increased prominence of the cerebral sulci and mild increase dilatation of the third and lateral ventricles. No communicating or noncommunicating hydrocephalus. No intra- or extra-axial hemorrhage. No intracranial mass or mass effect. Posterior fossa structures are unremarkable. Basal cisterns are patent. BONES/JOINTS: Unremarkable. No discrete lytic or blastic abnormalities. SINUSES: Unremarkable as visualized. Clear. MASTOID AIR CELLS: Unremarkable. Clear. ORBITS: Visualized globes, extraocular muscles, optic nerves and retrobulbar fat appear unremarkable. CT/Brain/Head without Contrast IMPRESSION: 1. No CT evidence of intracranial bleeding, acute ischemic infarct or acute intracranial abnormality. 2. 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 This was not present previously. 3. Mild increase in cerebral atrophy and now visible chronic white matter ischemic changes in the anterior periventricular white matter when compared to 03/30/2013. Electronically Signed: Jhony Quinn MD at 12:36 EDT ,
--- NOTE | 2024-06-14 11:49 | EKG12_ITS ---
Test Reason : HYPOTENSION Blood Pressure : / mmHG Vent. Rate : 073 BPM Atrial Rate : 073 BPM P-R Int : 178 ms QRS Dur : 104 ms QT Int : 444 ms P-R-T Axes : 026 -02 055 degrees QTc Int : 489 ms Normal sinus rhythm Prolonged QT Abnormal ECG Confirmed by NAYLA REIS, ANANTH ([id number]), continuity editor MARILOU MORENO ([id number]) on 06/16/2024 1:36:36 PM Referred By: Confirmed By:ANANTH WINSLOW MD
--- NOTE | 2024-06-14 11:50 | EDS_ITS ---
HPI History of Present Illness Chief Complaint: Hypotension Detail of Chief Complaint: Low blood pressure Informant: patient and family Narrative Narrative: Low blood pressure and confusion. Patient brought to the emergency department by daughter. Patient's had some pain in his right leg and hip x 3 weeks or so. He was being seen by pain management Dr. Newby today for a Kenalog injection. Patient was noted in the office to be hypotensive with systolic initially in the 80s in the 70s. He had his injection. Afterwards he was able to eat and ambulate with his walker therefore they were not too concerned about his hypotension. The daughter got him in the car and they will take him home and so she stopped to get some Gatorade at a gas station and when she came back he was confused and disoriented and was not answering some questions. She brings up to the ER for evaluation. Patient has history of lung cancer and receiving chemotherapy. Last chemo was about 3 weeks ago. He has had no fevers or chills or sweats. Patient himself denies any headache or chest pain or shortness of breath or abdominal pain. Daughter states that his few months ago. He has been less active because of the pain in his leg and he has not been sleeping well. [facility] Medical History Wears glasses History of steroid therapy High cholesterol Gastric reflux Non-smoker Shortness of breath on exertion History of edema History of echocardiogram History of rheumatic fever Hypertension Cardiology follow-up encounter Dehydration Adrenal insufficiency Weakness Elevated bilirubin Hyponatremia Imbalance Nausea Thrombocytopenia Pleural effusion, bilateral Stomatitis Drug induced neutropenia Impaired glucose tolerance Encounter for chemotherapy management Edema of extremities Atherosclerotic heart disease of [place] coronary artery without angina pectoris Bilateral lower leg cellulitis Nonrheumatic aortic (valve) stenosis Obesity Elevated liver enzymes Essential (primary) hypertension Chemotherapy management, encounter for Bacteremia (12/21/19) Rash Hoarseness of voice Encounter for adjustment and management of vascular access device Immunotherapy encounter Anemia Localized swelling, mass and lump, neck Encounter for education Hypothyroidism HLD (hyperlipidemia) Non-small cell carcinoma of lung Pneumothorax, left Primary lung cancer 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5 mg PO DAILY 05/25/24 Unknown History methocarbamol 500 mg tablet 500 mg PO 4X/DAY PRN Muscle 06/06/24 Unknown Rx pain/spasm #40 tabs metoprolol succinate 25 mg 25 mg PO DAILY 06/14/24 Unknown History tablet,extended release 24 hr Allergy/AdvReac Type Severity Reaction Status Date / Time No Known Allergies Allergy Verified 06/14/24 11:09 Family History Uncle Cancer Mother CVA (cerebral vascular accident) Surgical History Hx of colonoscopy History of vascular access device History of left heart catheterization (04/29/21) Hx of lymph node biopsy History of tonsillectomy and adenoidectomy History of wisdom tooth extraction Social History Smoking Status: Never smoker second hand exposure: No alcohol intake: never substance use type: does not use caffeine: Yes what type of physical activity do you participate in: none frequency: does not exercise ROS ROS ED ROS Narrative Hypotension Review of Systems ROS Unobtainable: other Constitutional Constitutional ED: Reports lethargy; Denies chills, fever(s), sweats or weight loss Eyes Eyes: Denies blurry vision, change in vision or diplopia ENT ENT ED: Denies rhinorrhea or sore throat Cardiovascular Cardiovascular: Denies chest pain, orthopnea or racing heartbeat Respiratory/Chest Respiratory/Chest: Denies cough, dyspnea, dyspnea on exertion, orthopnea or sputum Gastrointestinal Gastrointestinal: Denies abdominal pain, diarrhea, nausea or vomiting Genitourinary Genitourinary ED: Denies dysuria, hematuria or urinary frequency Musculoskeletal Musculoskeletal: Denies arthralgias, back pain, myalgias or neck pain Integumentary Denies abscess, Abrasions or rash Neurologic Neurologic: Reports other Details: Confusion ; Denies headache(s) or weakness Psychiatric Psychiatric: Reports other; Denies anxiety, depression or suicidal thoughts Endocrine Endocrinology: Denies polydipsia, polyphagia or polyuria Hematologic/Lymphatic Hematologic/Lymphatic: Denies easy bleeding, easy bruising or lymphadenopathy Allergic/Immunologic Allergic/Immunologic ED: Denies mouth swelling, tongue swelling or urticaria EXAM Physical Exam Const Vital Signs: 06/14/24 11:06 06/14/24 11:07 06/14/24 12:05 Temperature 97.2 F L 96.1 F L Temperature Source Temporal Temporal Pulse Rate 76 75 Respiratory Rate 19 H 16 Respiratory Pattern Normal Blood Pressure 124/70 H 78/34 L Blood Pressure Mean 88 48 Pulse Ox 97 96 Oxygen Delivery Method Room Air Room Air 06/14/24 12:06 06/14/24 12:10 06/14/24 13:00 Temperature 97.8 F 97.5 F L Temperature Source Oral Oral Pulse Rate 71 87 76 Respiratory Rate 16 14 16 Respiratory Pattern Blood Pressure 127/64 H 125/57 H 162/74 H Blood Pressure Mean 85 79 103 Pulse Ox 95 100 98 Oxygen Delivery Method Room Air Room Air Room Air 06/14/24 14:00 06/14/24 15:00 Temperature 97.5 F L 97.4 F L Temperature Source Oral Temporal Pulse Rate 75 75 Respiratory Rate 19 H 15 Respiratory Pattern Blood Pressure 159/71 H 150/95 H Blood Pressure Mean 100 106 Pulse Ox 98 97 Oxygen Delivery Method Room Air Room Air Positive well nourished and well developed General Appearance ED: well developed and NAD HEENT Reports TM's clear and moist mucous membranes normocephalic and atraumatic; Negative for trauma or tenderness Tympanic Membrane ED: Yes TM's clear Eyes PERRL and EOMs intact bilaterally General Eye ED: Negative for pale conjunctiva or scleral icterus Neck no lymphadenopathy, supple and no JVD General: Negative for tenderness Chest Wall inspection of chest normal and palpation of chest normal Chest Narrative: Mediport in right chest appears normal without evidence of erythema or cellulitic changes. Nontender. Chest: Negative for tenderness Resp normal respiratory effort and clear to auscultation bilaterally Effort and Inspection: Negative for respiratory distress or pain with movement Auscultation: Negative for rhonchi, wheezes or diminished lung sounds Cardio regular rate, regular rhythm, S1 normal heart sound, S2 normal heart sound and no murmurs Peripheral Pulses: pulses 2+ throughout GI normal to inspection, nondistended, normoactive bowel sounds, soft to palpation, non-tender, non-distended and no masses Back/Spine no CVA tenderness and no thoracic nor lumbar tenderness Extremity normal to inspection General Extremety ED: Negative for edema General Extremity: Negative for edema Neuro oriented x3, CN's II-XII intact bilaterally, no sensory deficits noted and gait normal Sensorium / Orientation: awake, alert, oriented to person, oriented to place and oriented to time Motor Exam: strength 5/5 throughout and strength abnormal Psych mental status grossly normal Skin no rashes or lesions noted and no wounds MDM MDM MDM Narrative Medical decision making narrative: Patient presents to the emergency department brought by his daughter for episode of confusion and hypotension today. On arrival he is not hypotensive and has no complaints. Answers all questions appropriately. GCS is 15. He is ANO x 3. Etiology of confusion may have been related to hypotension. IV line established. EKG obtained on arrival showed a sinus rhythm with ventricular rate of 73 bpm with prolonged QT. CT scan of the brain without contrast obtained showed no evidence of acute intracranial process such as bleed or acute ischemic infarct. 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 Patient also had mild increase in cerebral atrophy. Last CT for comparison was in 2012. CBC with differential count of 13.5 with hemoglobin 12.8 and platelet count 216. Chemistries unremarkable. BUN 28 creatinine 1.1 and lactate was normal 1.3. Urinalysis was normal. Patient received a liter mostly fluid bolus. Repeat examination at 1520 and he is active and happy and smiling and has no complaints. He was able to ambulate with his walker to the bathroom and back without difficulty. Discussed results with patient and family. Patient would like to go home. I suspect his episode of confusion may have been due to the transient hypotension. Will obtain orthostatic blood pressures here but p.o. in the department now actually hypertensive. Lab Data Attestation: I reviewed the patient's lab results. Labs: Laboratory Results - last 24 hr 06/14/24 06/14/24 06/14/24 11:08 11:58 13:19 WBC 13.5 H RBC 4.36 L Hgb 12.8 L Hct 39.6 L MCV 90.8 MCH 29.4 MCHC 32.3 RDW Std Deviation 48.5 H RDW Coeff of Gino 14.5 Plt Count 216 MPV 9.2 Immature Gran % (Auto) 1.700 H Neut % (Auto) 73.0 H Lymph % (Auto) 15.1 L [place] % (Auto) 7.5 Eos % (Auto) 2.2 Baso % (Auto) 0.5 Absolute Neuts (auto) 9.8 H Absolute Lymphs (auto) 2.03 Nucleated RBC % 0 Sodium 138 Potassium 3.7 Chloride 102 Carbon Dioxide 31.0 Anion Gap 5 BUN 28 H Creatinine 1.10 Est GFR (MDRD) Af Amer 83 Est GFR (MDRD) Non-Af 69 BUN/Creatinine Ratio 25.5 H Glucose 107 H Lactic Acid 1.3 Calcium 8.7 Total Bilirubin 0.40 AST 22 ALT 30 Alkaline Phosphatase 71 Troponin I High Sens 17 Total Protein 6.6 Albumin 2.9 L Globulin 3.7 Albumin/Globulin Ratio 0.8 L Urine Color Yellow Urine Clarity Clear Urine pH 7.0 Ur Specific [place] 1.010 Urine Protein Negative Urine Glucose (UA) Normal Urine Ketones Negative Urine Occult Blood Negative Urine Nitrite Negative Urine Bilirubin Negative Urine Urobilinogen Normal Ur Leukocyte Esterase 25 H Urine RBC 0 SEEN Urine WBC 0 SEEN Ur Squamous Epith Cells 0 SEEN Urine Bacteria 0 SEEN Urine Mucus 0 SEEN Radiography Diagnostic Testing: Clinical Impression(s) from Imaging Studies Brain CT 06/14/24 11:46 IMPRESSION: 1. No CT evidence of intracranial bleeding, acute ischemic infarct or acute intracranial abnormality. 2. 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 This was not present previously. 3. Mild increase in cerebral atrophy and now visible chronic white matter ischemic changes in the anterior periventricular white matter when compared to 03/30/2013. Electronically Signed: Jhony Quinn MD at 12:36 EDT , EKG Initial EKG: Attestation: I personally reviewed and interpreted this EKG as follows: Comments: Sinus rhythm with ventricular rate of 73 bpm with prolonged QT. The prolonged QT is new when compared with EKG from 2019. Prior EKG tracings: available for review Prior: Changed Discharge Plan Triage Chief Complaint: Hypotension ED Provider: Nawaf Ferrari Dx/Rx/DC Orders Clinical Impression: Transient hypotension, Acute confusion Instructions: Hypotension Dc, ED ALOC, ED Confusion Prescriptions: No Action levothyroxine 125 mcg tablet 125 mcg PO MOTUWETHFR gabapentin 300 mg capsule 300 mg PO BID meloxicam 7.5 mg tablet 7.5 mg PO DAILY acetaminophen 325 MG tablet 650 mg PO Q4H PRN PRN (Reason: Mild-Moderate Pain (-02/18)) 0RF levothyroxine 125 mcg capsule 250 mcg PO SUSA furosemide 40 mg tablet 40 mg PO MOWEFR metoprolol succinate 25 mg tablet extended release 24 hr 25 mg PO DAILY methocarbamol 500 mg tablet 500 mg PO 4X/DAY PRN (Reason: Muscle pain/spasm) Qty: 40 1RF (DME) Handicap Placard See Rx Instructions .Route .MEDSUPPLY Qty: 1 0RF Rx Instructions: As directed atorvastatin 40 mg tablet 40 mg PO DAILY Qty: 90 3RF Primary Care Provider: Lisandro Zaldivar Referrals: Lisandro Zaldivar MD [Primary Care Provider] - 3-5 Days Print Language: Yoruba Disposition Disposition: Home, Self Care
[2024-06-14] MEDS: 0.9% Normal Saline (500mL Bag) 500 ML 1000 ML IV (11:57)
[2024-06-14 12:00] LABS: Absolute Lymphocyte Count 2.03 X10^3/uL (0.83-4.51); Absolute Neutrophil Count 9.8 X10^3/uL (2.0-7.7); Basophil# 0.07 X10^3/uL; Basophil% 0.5 % (0-1); Eosinophil# 0.29 X10^3/uL; Eosinophils% 2.2 % (0-5); Hematocrit 39.6 % (40-54); Hemoglobin 12.8 g/dL (13.0-16.5); Lymphocyte # 2.03 X10^3/ul (0.83-4.51); Lymphocyte % 15.1 % (19-41); Mean Corp Hgb Conc 32.3 g/dL (32-36); Mean Corpuscular Hgb 29.4 pg (27.0-32.0); Mean Corpuscular Volume 90.8 fL (80-94); Mean Platelet Vol. 9.2 fl (6.2-12.0); Monocyte# 1.01 X10^3/uL; Monocyte% 7.5 % (0-10); NRBC Flagged by Analyzer 0 % (0-5); Neutrophil # 9.82 X10^3/uL (2.7-7.7); Platelet Count 216 K/mm3 (150-450); RBC Distribution Width CV 14.5 % (11.6-14.6); RBC Distribution Width SD 48.5 fl (35.1-43.9); Red Blood Count 4.36 M/mm3 (4.6-6.2); White Blood Count 13.5 K/mm3 (4.4-11.0)
[2024-06-14 12:21] LABS: ALB/GLOB Ratio 0.8 RATIO (0.9-2.4); AST(SGOT) 22 U/L (15-37); Alanine Aminotransfer ALT/SGPT 30 U/L (16-61); Albumin, Serum 2.9 g/dL (3.2-5.0); Alkaline Phosphatase 71 U/L (45-117); Anion Gap 5 (5-15); BUN 28 mg/dL (7-18); BUN/Creat Ratio 25.5 RATIO (10-20); Calcium,Total 8.7 mg/dL (8.5-10.1); Chloride 102 mmol/L (98-107); EST Glomerular Filtration Rate 69 mL/min (>60); Est Glom Filt Rate - Afr Amer 83 mL/min (>60); Globulin 3.7 g/dL (2.2-4.2); Glucose 107 mg/dL (74-106); Potassium 3.7 mmol/L (3.5-5.1); Protein, Total 6.6 g/dL (6.4-8.2); Sodium Level 138 mmol/L (136-145); Troponin-I HS 17 pg/mL (3.0-78.0)
[2024-06-14] MEDS: 0.9% Normal Saline (1000mL) 1,000 ML 150 ML IV (12:22)
[2024-06-14 12:40] LABS: Lactic Acid 1.3 mmol/L (0.4-1.9)
[2024-06-14 13:24] LABS: Bacteria 0 SEEN /hpf (None Seen); Mucous, Urine 0 SEEN /hpf (<or=2+); Red Blood Cells-Urine 0 SEEN /hpf (0-5); Squamous Epithelial Cells - UA 0 SEEN /hpf (0-5); White Blood Cells 0 SEEN /hpf (0-5)
[2024-06-14 13:27] LABS: Color, Urine Yellow (Yellow); Glucose, Dipstick Normal (Normal); Ketone-Dipstick Negative (Negative); Leukocyte Esterase-Dipstick 25 /ul (Negative); Nitrite-Dipstick Negative (Negative); Occult Blood-Urine Negative /ul (Negative); Protein-Dipstick Negative (Negative); Urine Bilirubin Dipstick Negative (Negative); Urine Clarity Clear (Clear); Urine Urobilinogen Normal (Normal)
== END 2024-06-14 15:35 | disposition home or self-care (01) ==
PROVIDERS: Emergency Provider Emergency Medicine; PCP Family Medicine; Visit Provider Emergency Medicine
DX: I95.9 Hypotension, unspecified (principal); C34.90 Malignant neoplasm of unspecified part of unspecified bronchus or lung; R41.0 Disorientation, unspecified; M79.606 Pain in leg, unspecified; I10 Essential (primary) hypertension; G31.9 Degenerative disease of nervous system, unspecified; I25.10 Atherosclerotic heart disease of native coronary artery without angina pectoris; E78.00 Pure hypercholesterolemia, unspecified; K21.9 Gastro-esophageal reflux disease without esophagitis; Z79.899 Other long term (current) drug therapy
CPT/HCPCS: 70450; 80053; 81001; 83605; 84484; 85025; 87040; 93005; 96360; 96361; 99285; J7030; A4216

== ENCOUNTER → 2024-09-19 | Outpatient (CLI) | payer MEDICARE, SELFPAY ==
--- NOTE | 2024-09-19 07:36 | CT_ITS ---
EXAM: CT CHEST AND ABDOMEN WITH INTRAVENOUS CONTRAST CLINICAL INDICATION: m NSCLC; assess response to treatment TECHNIQUE: Helically acquired images were obtained of the chest and abdomen with intravenous contrast. This CT exam was performed using one or more of the following dose reduction techniques: automated exposure control, adjustment of the mA and/or kV according to patient size, and/or use of iterative reconstruction technique. CONTRAST: IV 100mL Isovue-300 COMPARISON: 06/07/2024 FINDINGS: CHEST: LUNGS AND PLEURAL SPACES: There is a large right-sided pleural effusion with consolidation right lower lobe which may represent atelectasis. There is a small left-sided effusion. There is a stable spiculated lesion in the left upper lobe. There is a focal density in the left base and measures 1.9 x 1.2 cm may represent a small focal area of atelectasis. This has decreased in size from the reference exam. No pneumothorax. HEART: Unremarkable. Heart size is normal. No pericardial effusion. MEDIASTINUM: Unremarkable. No mediastinal or hilar adenopathy. Esophagus is unremarkable. No hiatal hernia. THYROID: Unremarkable. No thyroid lesions. ABDOMEN: LIVER: Unremarkable. Homogeneous. No focal mass. GALLBLADDER AND BILE DUCTS: Unremarkable. No calcified gallstones. No gallbladder distention or wall edema. No intra- or extrahepatic biliary ductal dilation. PANCREAS: Unremarkable. No focal cystic or solid mass. SPLEEN: Unremarkable. Normal size without focal cystic or solid mass. ADRENALS: Unremarkable. No nodules. KIDNEYS AND URETERS: There are low-density masses in both kidneys compatible with simple cysts. No follow-up imaging is necessary. No hydronephrosis. STOMACH AND BOWEL: Unremarkable. No stomach or bowel distention. No focal inflammatory change. INTRAPERITONEAL SPACE: Unremarkable. No ascites or other fluid collection. No free air. CHEST and ABDOMEN: BONES/JOINTS: Unremarkable. No suspicious lytic or blastic abnormality. SOFT TISSUES: Unremarkable. No discrete abdominal wall hernia. VASCULATURE: Unremarkable. Aorta is non-dilated. No aortic dissection. No obvious central pulmonary embolism although this study was not performed with the pulmonary embolism protocol. LYMPH NODES: Unremarkable. No enlarged lymph nodes. CT/CT Chest AND Abd W/ Contrast IMPRESSION: 1. Large right-sided pleural effusion with consolidation of the right upper and lower lobes which is not significantly changed from the reference examination. There has been an interval decrease in size of a left-sided pleural effusion with a small focal area of consolidation in the left base which may represent atelectasis. 2. Spiculated lesion in the left upper lobe is stable. 3. No abnormalities within the abdomen. Electronically Signed: Ben Gooden MD at 18:39 EST ,
== END | disposition home or self-care (01) ==
PROVIDERS: PCP Family Medicine; Referring Provider Nurse Practitioner Family; Visit Provider Nurse Practitioner Family
DX: C34.12 Malignant neoplasm of upper lobe, left bronchus or lung (principal); C77.1 Secondary and unspecified malignant neoplasm of intrathoracic lymph nodes; C77.0 Secondary and unspecified malignant neoplasm of lymph nodes of head, face and neck
CPT/HCPCS: 71260; 74160; Q9967; A4216

== ENCOUNTER 2024-10-25 14:18 | Inpatient (IN) | payer MEDICARE, SELFPAY ==
[2024-10-25] VITALS (11 sets, daily range): BP systolic 101–154; BP diastolic 53–84; PULSE 72–140; RESP 15–21; TEMP 36.5–37.1; O2SAT 94–99; BMI 28.1; BMI 26.2
--- NOTE | 2024-10-25 14:42 | EKG12_ITS ---
Test Reason : RHYTHM CHANGE Blood Pressure : */* mmHG Vent. Rate : 77 BPM Atrial Rate : 77 BPM P-R Int : 186 ms QRS Dur : 106 ms QT Int : 464 ms P-R-T Axes : 7 2 101 degrees QTcB Int : 525 ms Sinus rhythm with marked sinus arrhythmia Inferior infarct , age undetermined Abnormal ECG When compared with ECG of 25-Oct-2024 14:19, MANUAL COMPARISON REQUIRED DATA IS UNCONFIRMED Confirmed by NALYA REIS, ANANTH ([id number]), news videotape editor RU COOK ([id number]) on 10/26/2024 9:36:49 AM Referred By: MI Confirmed By: ANANTH WINSLOW MD
--- NOTE | 2024-10-25 14:43 | EX.ED.DYSGE1 ---
HPI History of Present Illness Chief Complaint: General Illness Detail of Chief Complaint: Generalized weakness Informant: patient and family Narrative Narrative: Patient presents to the emergency department complaint of generalized weakness for the last 3 days. Daughter states that she came to check on him today and checked his vital signs and his heart rate was all over the place. Heart rate up to the 120s and 130s. No prior history of A-fib. Patient denies chest pain. He denies recent illness. He is currently being treated for lung cancer and gets immunotherapy every 3 weeks. Daughter states that he has had some nausea and vomiting and dry heaves. He had some mild increased confusion. Patient with history of adrenal insufficiency and takes hydrocortisone daily and his last dose was this afternoon 5 mg. [facility] Medical History Wears glasses History of steroid therapy High cholesterol Gastric reflux Non-smoker Shortness of breath on exertion History of edema History of echocardiogram History of rheumatic fever Hypertension Cardiology follow-up encounter Dehydration Adrenal insufficiency Weakness Elevated bilirubin Hyponatremia Imbalance Nausea Thrombocytopenia Pleural effusion, bilateral Stomatitis Drug induced neutropenia Impaired glucose tolerance Encounter for chemotherapy management Edema of extremities Atherosclerotic heart disease of [place] coronary artery without angina pectoris Bilateral lower leg cellulitis Nonrheumatic aortic (valve) stenosis Obesity Elevated liver enzymes Essential (primary) hypertension Chemotherapy management, encounter for Bacteremia (12/21/19) Rash Hoarseness of voice Encounter for adjustment and management of vascular access device Immunotherapy encounter Anemia Localized swelling, mass and lump, neck Encounter for education Hypothyroidism HLD (hyperlipidemia) Non-small cell carcinoma of lung Pneumothorax, left Primary lung cancer 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 Home Medications ?Medication ?Instructions ?Recorded ?Last Taken ?Type Handicap Deepika #1 ea 07/30/23 Unknown Rx metoprolol succinate 25 mg 12.5 mg PO DAILY 07/08/24 Unknown History tablet,extended release 24 hr levothyroxine 150 mcg tablet 150 mcg PO QDAY #90 tabs 09/01/24 Unknown Rx atorvastatin 40 mg tablet 40 mg PO QHS cholesterol 10/25/24 Unknown History hydrocortisone 5 mg tablet 5 mg PO 1300 adrenal gland 10/25/24 Unknown History hydrocortisone 5 mg tablet 10 mg PO .am adrenal gland 10/25/24 Unknown History Allergy/AdvReac Type Severity Reaction Status Date / Time No Known Allergies Allergy Verified 10/25/24 14:20 Family History Uncle Cancer Mother CVA (cerebral vascular accident) Surgical History Hx of colonoscopy History of vascular access device History of left heart catheterization (04/29/21) Hx of lymph node biopsy History of tonsillectomy and adenoidectomy History of wisdom tooth extraction Social History housing: house Smoking Status: Never smoker second hand exposure: No alcohol intake: never substance use type: does not use caffeine: Yes what type of physical activity do you participate in: none frequency: does not exercise ROS ROS ED Review of Systems ROS Unobtainable: other Constitutional Constitutional ED: Reports lethargy; Denies chills, fever(s), sweats or weight loss Eyes Eyes: Denies blurry vision, change in vision or diplopia ENT ENT ED: Denies rhinorrhea or sore throat Cardiovascular Cardiovascular: Denies chest pain, orthopnea or racing heartbeat Respiratory/Chest Respiratory/Chest: Denies cough, dyspnea, dyspnea on exertion, orthopnea or sputum Gastrointestinal Gastrointestinal: Denies abdominal pain, diarrhea, nausea or vomiting Genitourinary Genitourinary ED: Denies dysuria, hematuria or urinary frequency Musculoskeletal Musculoskeletal: Denies arthralgias, back pain, myalgias or neck pain Integumentary Denies abscess, Abrasions or rash Neurologic Neurologic: Reports weakness; Denies headache(s) Psychiatric Psychiatric: Denies anxiety, depression or suicidal thoughts Endocrine Endocrinology: Denies polydipsia, polyphagia or polyuria Hematologic/Lymphatic Hematologic/Lymphatic: Denies easy bleeding, easy bruising or lymphadenopathy Allergic/Immunologic Allergic/Immunologic ED: Denies mouth swelling, tongue swelling or urticaria EXAM Physical Exam Const Vital Signs: 10/25/24 14:20 10/25/24 14:42 Temperature 98.7 F Temperature Source Oral Pulse Rate 140 H Respiratory Rate 18 Respiratory Effort Normal Respiratory Pattern Normal Blood Pressure 126/68 H Blood Pressure Mean 87 Pulse Ox 98 Oxygen Delivery Method Room Air Positive well nourished and well developed General Appearance ED: well developed and NAD HEENT Reports TM's clear and moist mucous membranes normocephalic and atraumatic; Negative for trauma or tenderness Tympanic Membrane ED: Yes TM's clear Eyes PERRL and EOMs intact bilaterally General Eye ED: Negative for pale conjunctiva or scleral icterus Neck no lymphadenopathy, supple and no JVD General: Negative for tenderness Chest Wall inspection of chest normal and palpation of chest normal Chest: Negative for tenderness Resp normal respiratory effort and clear to auscultation bilaterally Effort and Inspection: Negative for respiratory distress or pain with movement Auscultation: Negative for rhonchi, wheezes or diminished lung sounds Cardio regular rhythm, S1 normal heart sound and S2 normal heart sound; Negative for regular rate Rate: tachycardic Rhythm: abnormal rhythm irregularly irregular and other (2 out of 6 systolic ejection murmur) Peripheral Pulses: pulses 2+ throughout GI normal to inspection, nondistended, normoactive bowel sounds, soft to palpation, non-tender, non-distended and no masses Back/Spine no CVA tenderness and no thoracic nor lumbar tenderness Extremity normal to inspection General Extremety ED: Negative for edema General Extremity: Negative for edema Neuro oriented x3, CN's II-XII intact bilaterally, no sensory deficits noted and gait normal Sensorium / Orientation: awake, alert, oriented to person, oriented to place and oriented to time Motor Exam: strength 5/5 throughout and strength abnormal Psych mental status grossly normal Skin no rashes or lesions noted and no wounds MDM MDM MDM Narrative Medical decision making narrative: Patient presents to the emergency department via EMS with his daughter who is power of state's attorney and medical decision maker as well as caregiver. Patient's had increased weakness over the last 3 days. Difficult to care for at home currently. Currently undergoing treatment with immunotherapy for lung cancer. Denies recent illness. IV line established. He was given a liter [place] fluid bolus. EKG obtained showed atrial fibrillation with ventricular rate of 143 bpm with no acute ST segment changes. Compared with prior EKG from June 2024 at that time he was in sinus rhythm. Patient was given Cardizem 20 mg IV bolus and that slowed his heart rate down to the 110's. Ordered Cardizem 25 mg bolus and then started a Cardizem drip. CBC with differential white count of 14.2 with hemoglobin 14.2 and platelet count of 196. Chemistries unremarkable. Troponin was normal at 7. BUN was 19 and creatinine 1.08. Will discuss case with hospitalist as he will likely require anticoagulation. Will admit for definitive care. Urinalysis ordered and pending. 1 view chest x-ray obtained did show a right pleural effusion which was also present similarly on a CT scan from September 19, 2024. Patient does have an elevated WBC count which at times is elevated when compared with prior. He does not have a fever or other source of infection at this time however will obtain a urinalysis. He has not had a cough. He has been having some nausea and vomiting and therefore this elevated white count may be reactive. Lab Data Attestation: I reviewed the patient's lab results. Labs: Laboratory Results - last 24 hr 10/25/24 14:52 WBC 14.2 H RBC 4.85 Hgb 14.2 Hct 42.3 MCV 87.2 MCH 29.3 MCHC 33.6 RDW Std Deviation 39.8 RDW Coeff of Gino 12.4 Plt Count 196 MPV 8.7 Immature Gran % (Auto) 0.500 Neut % (Auto) 87.0 H Lymph % (Auto) 4.7 L [place] % (Auto) 6.3 Eos % (Auto) 1.0 Baso % (Auto) 0.5 Absolute Neuts (auto) 12.4 H Absolute Lymphs (auto) 0.66 L Nucleated RBC % 0 Sodium 134 L Potassium 4.0 Chloride 99 Carbon Dioxide 28.0 Anion Gap 7 BUN 19 H Creatinine 1.08 Estim Creat Clear Calc 54.88 Est GFR (MDRD) Af Amer 85 Est GFR (MDRD) Non-Af 70 BUN/Creatinine Ratio 17.6 Glucose 133 H Calcium 8.9 Troponin I High Sens 7 Radiography Chest X-Ray - ED: 1 View Diagnostic Testing: Right pleural effusion EKG Initial EKG: Attestation: I personally reviewed and interpreted this EKG as follows: Comments: Atrial fibrillation with rate 143 bpm with no acute ST segment changes Discharge Plan Dx/Rx/DC Orders Clinical Impression: Atrial fibrillation with RVR, Weakness, Pleural effusion on right, Leukocytosis, Nausea & vomiting Disposition Disposition: Acute Care [facility]
[2024-10-25] MEDS: dilTIAZem 25 MG/5 ML Vial 20 MG IV BOLUS (14:58)
[2024-10-25] MEDS: 0.9% Normal Saline (1000mL) 1,000 ML 1000 ML IV (14:58)
[2024-10-25 15:06] LABS: Absolute Lymphocyte Count 0.66 X10^3/uL (0.83-4.51); Absolute Neutrophil Count 12.4 X10^3/uL (2.0-7.7); Basophil# 0.07 X10^3/uL; Basophil% 0.5 % (0-1); Eosinophil# 0.14 X10^3/uL; Hematocrit 42.3 % (40-54); Hemoglobin 14.2 g/dL (13.0-16.5); Lymphocyte # 0.66 X10^3/ul (0.83-4.51); Lymphocyte % 4.7 % (19-41); Mean Corp Hgb Conc 33.6 g/dL (32-36); Mean Corpuscular Hgb 29.3 pg (27.0-32.0); Mean Corpuscular Volume 87.2 fL (80-94); Mean Platelet Vol. 8.7 fl (6.2-12.0); Monocyte% 6.3 % (0-10); NRBC Flagged by Analyzer 0 % (0-5); Neutrophil # 12.35 X10^3/uL (2.7-7.7); Platelet Count 196 K/mm3 (150-450); RBC Distribution Width CV 12.4 % (11.6-14.6); RBC Distribution Width SD 39.8 fl (35.1-43.9); Red Blood Count 4.85 M/mm3 (4.6-6.2); White Blood Count 14.2 K/mm3 (4.4-11.0)
[2024-10-25 15:18] LABS: Anion Gap 7 (5-15); BUN 19 mg/dL (7-18); BUN/Creat Ratio 17.6 RATIO (10-20); Calcium,Total 8.9 mg/dL (8.5-10.1); Chloride 99 mmol/L (98-107); Creatinine, Serum 1.08 mg/dL (0.70-1.30); EST Glomerular Filtration Rate 70 mL/min (>60); Est Glom Filt Rate - Afr Amer 85 mL/min (>60); Estimated Creatinine Clearance 54.88 ml/min; Glucose 133 mg/dL (74-106); Sodium Level 134 mmol/L (136-145); Troponin-I HS 7 pg/mL (3.0-78.0)
--- NOTE | 2024-10-25 15:35 | RAD_ITS ---
EXAM: XR CHEST, 1 VIEW CLINICAL INDICATION: tachycardia TECHNIQUE: Frontal view of the chest. COMPARISON: 04/08/24 FINDINGS: Persistent moderate to large right pleural effusion with adjacent passive atelectasis. Right chest port place with tip above the cavoatrial junction. Ectatic thoracic aortic arch with atherosclerotic calcifications. Degenerative changes of the spine. RAD/Chest 1 View (Portable) IMPRESSION: 1. Persistent moderate to large right pleural effusion with adjacent passive atelectasis. 2. No other changes from before. Electronically Signed: Fernando Machuca MD at 16:01 EST ,
--- NOTE | 2024-10-25 16:11 | HP.PCM.HOS_ITS ---
HPI - General General Date of Admission: 10/25/24 Date of Service: 10/25/24 Chief Complaint: Generalized weakness HPI Narrative RAJAN ROSEN, is a 79 M who presented to the emergency department at [facility] on 10/25/2024 with a chief complaint of generalized weakness. He presents with his daughter who assists with the history. She reported that she went to his house to check on him today and she checked his vital signs and noted his heart rate was very fast and somewhat irregular. He is evidently had some generalized weakness for about the last 3 days or so. He is on Keytruda for metastatic lung CA and follows with oncology seeing Dr. Guevara. Evidently he had some nausea and vomiting over the last day. Denied any diarrhea. Report he did not have any chest pain or shortness of breath but does have known history of pleural effusion and previous right thoracentesis. His daughter stated he had probably 3 thoracentesis previously and it appears his last one was in January for large volume. His appetite has been decreased over the last several weeks and the patient states that he is just not hungry. He is adrenally insufficient due to previous chemotherapy and takes hydrocortisone at baseline. He has been compliant with his home doses and his vital signs appear to be appropriate at this time. Vital signs on presentation showed a temperature of 98.7, heart rate was 140, respiratory is 18, blood pressure is 126/68 and pulse ox was 98% on room air. CBC showed a white count of 14.2 with an 87% neutrophilia. Coags were normal. Chemistry panel showed a sodium of 134 with normal renal function which appears to be at his baseline, mild hyperglycemia with a blood sugar of 133 normal calcium, troponin of 7 and a procalcitonin of 0.06. UA is overtly unremarkable. Chest x-ray shows what appears to be a persistent moderate large right-sided pleural effusion with compressive atelectasis. CTA of the chest was performed to rule out PE with new onset A-fib and showed rounded atelectasis at the posterior aspect of the left lower lobe with adjacent small left pleural effusion and collapse of the majority of the right lower lobe and partial collapse of the right middle lobe due to fluid and a large right pleural effusion. EKG shows A-fib with RVR, prolonged QT segment and no ST-T wave changes concerning for acute ischemia He was started on heparin and Cardizem drip in the emergency department and request for admission was made. [facility] Medical History Wears glasses History of steroid therapy High cholesterol Gastric reflux Non-smoker Shortness of breath on exertion History of edema History of echocardiogram History of rheumatic fever Hypertension Cardiology follow-up encounter Dehydration Adrenal insufficiency Weakness Elevated bilirubin Hyponatremia Imbalance Nausea Thrombocytopenia Pleural effusion, bilateral Stomatitis Drug induced neutropenia Impaired glucose tolerance Encounter for chemotherapy management Edema of extremities Atherosclerotic heart disease of [place] coronary artery without angina pectoris Bilateral lower leg cellulitis Nonrheumatic aortic (valve) stenosis Obesity Elevated liver enzymes Essential (primary) hypertension Chemotherapy management, encounter for Bacteremia (12/21/19) Rash Hoarseness of voice Encounter for adjustment and management of vascular access device Immunotherapy encounter Anemia Localized swelling, mass and lump, neck Encounter for education Hypothyroidism HLD (hyperlipidemia) Non-small cell carcinoma of lung Pneumothorax, left Primary lung cancer 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 Home Medications ?Medication ?Instructions ?Recorded ?Last Taken ?Type Handicap Placard #1 ea 07/30/23 Unknown Rx metoprolol succinate 25 mg 12.5 mg PO DAILY ASK PCP 07/08/24 Unknown History tablet,extended release 24 hr levothyroxine 150 mcg tablet 150 mcg PO QDAY ASK PCP #90 tabs 09/01/24 Unknown Rx atorvastatin 40 mg tablet 40 mg PO QHS ASK PCP 10/25/24 Unknown History hydrocortisone 5 mg tablet 5 mg PO 1300 adrenal gland 10/25/24 Unknown History hydrocortisone 5 mg tablet 10 mg PO .am adrenal gland 10/25/24 Unknown History Allergy/AdvReac Type Severity Reaction Status Date / Time No Known Allergies Allergy Verified 10/25/24 14:20 Family History Uncle Cancer Mother CVA (cerebral vascular accident) Surgical History Hx of colonoscopy History of vascular access device History of left heart catheterization (04/29/21) Hx of lymph node biopsy History of tonsillectomy and adenoidectomy History of wisdom tooth extraction Social History housing: house Smoking Status: Never smoker second hand exposure: No alcohol intake: never substance use type: does not use caffeine: Yes what type of physical activity do you participate in: none frequency: does not exercise ROS Constitutional Constitutional: Reports anorexia, fatigue, malaise and weakness; Denies change in weight, chills, fever(s), night sweats or other Eyes Eyes: Denies blurry vision, change in eye color, change in vision, discharge from eye(s), double vision, erythema, eye pain, loss of vision or other ENT HEENT: Reports abnormal hearing and hearing loss; Denies dysphagia, ear pain, epistaxis, headache(s), nasal congestion, nasal discharge, post nasal drip, sinus pressure, sore throat or other Cardiovascular Cardiovascular: Denies chest pain, claudication, dyspnea on exertion, edema, lightheadedness, orthopnea, palpitations, paroxysmal nocturnal dyspnea, rapid heart rate, syncope or other Respiratory/Chest Respiratory/Chest: Denies cough, dyspnea, excessive phlegm production, hemoptysis, productive cough, shortness of breath at rest, shortness of breath with exertion, wheezing or other Gastrointestinal Gastrointestinal: Reports nausea and vomiting; Denies abdominal pain, coffee ground emesis, constipation, diarrhea, dyspepsia, hematemesis, hematochezia, loose stools, melena or other Genitourinary Genitourinary: Reports urinary frequency and urinary hesitancy; Denies burning urination, difficulty urinating, dysuria, hematuria, nocturia, urinary incontinence, urinary urgency or other Musculoskeletal Musculoskeletal: Denies arthralgias, back pain, joint pain, joint stiffness, joint swelling, myalgias, neck pain or other Neurologic Neurologic: Denies abnormal gait, abnormal speech, confusion, disequilibrium, dizziness, focal weakness, headache(s), numbness, paresthesias, seizure-like activity, seizures, syncope, tingling, tremor(s) or other Psychiatric Psychiatric: Denies anxiety, depression, homicidal ideation, suicidal ideation or other Endocrine Endocrinology: Denies change in body appearance, cold intolerance, excessive sweating, heat intolerance, polydipsia, polyuria or other Hematologic/Lymphatic Hematologic/Lymphatic: Denies anemia, easy bleeding, easy bruising, lymphadenopathy or other Allergic/Immunologic Allergic/Immunologic: Denies rhinitis, hives, eczemia, asthma or other Vital Signs Vital Signs Vital Signs: 10/25/24 14:20 10/25/24 14:42 Temperature 98.7 F Temperature Source Oral Pulse Rate 140 H Respiratory Rate 18 Respiratory Effort Normal Respiratory Pattern Normal Blood Pressure 126/68 H Blood Pressure Mean 87 Pulse Ox 98 Oxygen Delivery Method Room Air Weight Weight: 79.2 kg Body Mass Index (BMI) 28.1 Physical Exam Const alert and oriented x3 Constitutional Narrative: Fatigued, older, white male, lying in bed, daughter at bedside, patient does not appear toxic, pleasant but does appear as if he is not feeling quite 100% at this time General Appearance: cooperative HEENT normocephalic, head/scalp atraumatic and moist oral mucous membranes HEENT Narrative: Mild hearing loss, Mallampati 2, no thrush Eyes EOMs intact bilaterally and conjunctivae normal Eyes Narrative: No scleral icterus Neck no lymphadenopathy and supple Neck Narrative: Trachea midline, no thyroid enlargement Resp normal respiratory effort, no retractions, no use of accessory muscles and clear to auscultation bilaterally Resp Narrative: Markedly diminished in the right lung field with normal aeration on the left Auscultation: Negative for rales, rhonchi or wheezes Cardio S1 normal heart sound, S2 normal heart sound, no murmurs, no rub, no gallops and no clicks Cardio Narrative: Tachycardia with irregular irregular rhythm GI normal to inspection, nondistended, normoactive bowel sounds, soft to palpation and non-tender Extremity no clubbing, cyanosis or edema Extremity Narrative: Pedal pulses are 2+ Skin Skin Narrative: Skin is pale Neuro oriented x3, moves all extremities and no focal motor deficits Neuro Narrative: Generalized weakness noted but no focal deficits Speech: speech normal Psych affect normal Psych Narrative: Appears fatigued but very pleasant, eye contact is good and patient interacts appropriately Results Lab / Micro Data 10/25/24 14:52 10/25/24 14:52 Labs: Laboratory Results - last 24 hr 10/25/24 14:52: WBC 14.2 H, RBC 4.85, Hgb 14.2, Hct 42.3, MCV 87.2, MCH 29.3, MCHC 33.6, RDW Std Deviation 39.8, RDW Coeff of [place]ino 12.4, Plt Count 196, MPV 8.7, Immature Gran % (Auto) 0.500, Neut % (Auto) 87.0 H, Lymph % (Auto) 4.7 L, [place] % (Auto) 6.3, Eos % (Auto) 1.0, Baso % (Auto) 0.5, Absolute Neuts (auto) 12.4 H, Absolute Lymphs (auto) 0.66 L, Nucleated RBC % 0, Sodium 134 L, Potassium 4.0, Chloride 99, Carbon Dioxide 28.0, Anion Gap 7, BUN 19 H, Creatinine 1.08, Estim Creat Clear Calc 54.88, Est GFR (MDRD) Af Amer 85, Est GFR (MDRD) Non-Af 70, BUN/Creatinine Ratio 17.6, Glucose 133 H, Calcium 8.9, Troponin I High Sens 7 Imaging Radiology Impression Chest X-Ray 10/25/24 15:35 IMPRESSION: 1. Persistent moderate to large right pleural effusion with adjacent passive atelectasis. 2. No other changes from before. Electronically Signed: Fernando Machuca MD at 16:01 EST , Assessment & Plan Assessment/Plan (1) Nausea & vomiting: (2) Leukocytosis: (3) Pleural effusion on right: (4) Weakness: (5) Atrial fibrillation with RVR: PLAN: Plan New onset A-fib with RVR -Cardizem drip initiated by the emergency department -Previous echocardiogram showed normal EF so we will continue -Patient also on metoprolol at home so we will initiate at 25 mg daily and possibly uptitrate to get off Cardizem tomorrow depending on response -Heparin drip for now with need for thoracentesis -Check TSH -Check echocardiogram -Suspect this is multifactorial -Currently does not appear to be infectious component with a normal procalcitonin -Monitor on telemetry -Transition to Eliquis once thoracentesis is complete Large right-sided pleural effusion -Patient has had this recurrently -Appears last thoracentesis was in January 2024.--> Removal of over a liter at that time -Thoracentesis ordered -LDH and protein ordered to assist with calculation of light criteria -Culture and cytology sent as well -Suspect this may be contributing to onset of A-fib Leukocytosis -Will obtain blood cultures -UA is not consistent with infection -Does not appear to have an infiltrate and no respiratory symptoms -Will hold off on antibiotics for now with a low procalcitonin -Check COVID/flu/RSV Nausea and vomiting/decreased p.o. intake -Etiology of nausea and vomiting is unclear -Will check stool if develops diarrhea -IV fluids -Add supplements -Consult dietitian as I do suspect patient may have some component of malnutrition Generalized weakness -Consult PT/OT -Consult case management for assistance with discharge planning Essential hypertension/hyperlipidemia -Continue home atorvastatin -Continue home metoprolol hypothyroidism -Check TSH with A-fib -Continue home levothyroxine Chemo induced adrenal insufficiency -Continue home cortisone and monitor closely -If hemodynamics may need stress dose steroids with Solu-Cortef 40 twice daily Metastatic non-small cell lung CA -Stage IV disease -Patient is currently on checkpoint inhibitor therapy -Follows with oncology -Plan is for follow-up imaging in January 2025 -atezolizumab DVT prophylaxis -Enoxaparin subcu daily CODE STATUS -Per discussion on admission with daughter at the bedside patient states he would like to remain full code at this time we discussed what that meant and he states he is not ready to . Charges/Coding Visit Charges Inpatient E&M: 07361 Init Hosp L3
--- NOTE | 2024-10-25 16:20 | CT_ITS ---
EXAM: CT ANGIOGRAPHY CHEST WITHOUT AND WITH INTRAVENOUS CONTRAST CLINICAL INDICATION: PE/Effusion TECHNIQUE: Helically acquired angiography images were obtained of the chest without and with intravenous contrast. CTDIvol = ( 11.17 ) mGy, DLP = ( 449.85 ) mGycm This CT exam was performed using one or more of the following dose reduction techniques: automated exposure control, adjustment of the mA and/or kV according to patient size, and/or use of iterative reconstruction technique. MIP reconstructed images were created and reviewed. CONTRAST: IV 100mL [id number] COMPARISON: No relevant prior studies available. FINDINGS: PULMONARY ARTERIES: Unremarkable. Normal in caliber. No evidence of pulmonary embolism. AORTA: Unremarkable. Normal in caliber. No evidence of dissection. GREAT VESSELS OF AORTIC ARCH: Unremarkable. Normal in caliber. No evidence of dissection. LUNGS AND PLEURAL SPACES: Collapse of the majority of the right lower lobe. Partial collapse of the right middle lobe. Small calcified granulomata left lower lobe posteriorly. Rounded atelectasis at the posterior aspect of the left lower lobe with adjacent small pleural effusion. No mass. No pneumothorax. HEART: Mild to moderate multivessel calcific coronary arteriolosclerosis. Heart size is normal. No pericardial effusion. MEDIASTINUM: Unremarkable. No mediastinal or hilar adenopathy. Esophagus is unremarkable. No hiatal hernia. THYROID: Unremarkable. No thyroid lesions. BONES/JOINTS: Unremarkable. No suspicious lytic or blastic abnormality. CT/CTA Chest W/WO Contrast IMPRESSION: 1. Rounded atelectasis at the posterior aspect of the left lower lobe with adjacent small pleural effusion. 2. Collapse of the majority of the right lower lobe. Partial collapse of the right middle lobe. Electronically Signed: Fernando Machuca MD at 16:54 EST ,
[2024-10-25 16:28] LABS: International Normalized Ratio 1.1; Prothrombin Time (Protime)PT. 14.3 SECONDS (11.7-14.9)
[2024-10-25 16:29] LABS: Partial Thromboplast Time 35.4 Seconds (24.1-36.2)
[2024-10-25 16:50] LABS: Bacteria 0 SEEN /hpf (None Seen); Mucous, Urine 0 SEEN /hpf (<or=2+)
[2024-10-25] MEDS: HEPARIN/D5w 25,000 UNITS 25,000 UNITS/250 ML IV.SOLN. 11 UNITS CONT INF (16:51)
[2024-10-25] MEDS: Heparin Injection (Vial) 5,000 UNIT/ML VIAL 5000 UNIT IV (16:51)
[2024-10-25] MEDS: dilTIAZem 25 MG/5 ML Vial IV BOLUS (16:51)
[2024-10-25 16:59] LABS: Color, Urine Yellow (Yellow); Glucose, Dipstick Normal (Normal); Ketone-Dipstick 5 mg/dl (Negative); Leukocyte Esterase-Dipstick 500 /ul (Negative); Nitrite-Dipstick Negative (Negative); Occult Blood-Urine 10 /ul (Negative); Protein-Dipstick Negative (Negative); Specific Gravity, Urine 1.005 (1.002-1.030); Urine Bilirubin Dipstick Negative (Negative); Urine Clarity Clear (Clear); Urine Urobilinogen Normal (Normal)
[2024-10-25 17:06] LABS: Red Blood Cells-Urine 0-5 SEEN /hpf (0-5); Squamous Epithelial Cells - UA 0-5 SEEN /hpf (0-5); White Blood Cells 10-25 SEEN /hpf (0-5)
[2024-10-25] MEDS: Diltiazem 125 MG in Dextrose 5%-Water (100mL Bag) 100 ML IV (17:19)
[2024-10-25] MEDS: 0.9% Normal Saline (1000mL) 1,000 ML 150 ML IV (17:20)
[2024-10-25 17:27] LABS: LDH 152 U/L (87-241)
[2024-10-25 17:31] LABS: Procalcitonin 0.06 ng/mL (0.00-0.09)
[2024-10-25 17:39] LABS: International Normalized Ratio 1.1; Prothrombin Time (Protime)PT. 14.3 SECONDS (11.7-14.9)
[2024-10-25 17:40] LABS: Partial Thromboplast Time 35.2 Seconds (24.1-36.2)
--- NOTE | 2024-10-25 18:30 | ECHOD_ITS ---
Reason For Study: Afib/Flutter Procedure This was a 2D Doppler, Color Flow transthoracic echocardiogram. The study was technically difficult. Exam performed portable in patient room. Left Ventricle Normal LV size. The left ventricular ejection fraction is 50 %. Mild segmental systolic dysfunction (see wall motion). Infero-Basal: Severely Hypokinetic. Right Ventricle Normal RV size. Normal systolic function. Atria Normal left atrium. Normal right atrium. Mitral Valve There is moderate to severe mitral annular calcification. Mild-Moderate (1-2+) eccentric mitral valve insufficiency. Tricuspid Valve Normal tricuspid valve. Aortic Valve Trisinus/trileaflet aortic valve. Mild focal aortic valve calcification. Peak aortic valve gradient 19 mmHg. Mean aortic valve gradient 10 mmHg. Mild (1+) eccentric aortic valve insufficiency. Pericardium/Pleural No pericardial effusion. MMode/2D Measurements & Calculations LVIDd: 4.8 cm IVSd: 0.99 cm LVOT diam: 2.0 cm LVIDs: 3.6 cm LVPWd: 0.93 cm LVOT area: 3.0 cm2 RVDd: 3.8 cm FS: 25.9 % Ao root diam: 3.2 cm LAV(MOD-sp4): 38.8 ml LVAd ap4: 27.4 cm2 LVLd ap4: 7.4 cm EDV(MOD-sp4): 83.3 ml EDV(sp4-el): 86.7 ml LVAs ap4: 18.0 cm2 LVLs ap4: 7.2 cm ESV(MOD-sp4): 40.0 ml ESV(sp4-el): 38.4 ml EF(MOD-sp4): 52.0 % EF(sp4-el): 55.7 % SV(MOD-sp4): 43.4 ml SV(sp4-el): 48.3 ml LA A4 area: 15.9 cm2 SI(MOD-sp4): 23.5 ml/m2 LA dimension(2D): 4.6 cm TAPSE: 1.6 cm RA A4 area: 19.6 cm2 Time Measurements MV dec time: 0.18 sec Doppler Measurements & Calculations MV E max tremayne: 88.8 cm/sec Lat Peak E' Tremayne: 11.6 cm/sec Med Peak E' Tremayne: 6.3 cm/sec MV A max tremayne: 74.2 cm/sec E/E' lat: 7.7 E/E' med: 14.0 MV E/A: 1.2 MV V2 max: 94.1 cm/sec MV P1/2t max tremayne: 96.2 cm/sec Ao V2 max: 218.1 cm/sec MV max P.5 mmHg MV P1/2t: 68.2 msec Ao max P.1 mmHg MV V2 mean: 54.3 cm/sec Ao V2 mean: 143.7 cm/sec MV mean P.4 mmHg MV dec slope: 413.2 cm/sec2 Ao mean P.6 mmHg MV V2 VTI: 33.9 cm MVA(P1/2t): 3.2 cm2 Ao V2 VTI: 42.2 cm AV (velocity ratio): 0.39 MVA(VTI): 1.4 cm2 PRETTY(I,D): 1.2 cm2 PRETTY(V,D): 1.0 cm2 LV V1 max: 74.7 cm/sec MR max tremayne: 496.3 cm/sec SV(LVOT): 49.1 ml LV V1 max P.2 mmHg MR max P.5 mmHg LV V1 mean P.0 mmHg LV V1 mean: 46.3 cm/sec LV V1 VTI: 16.4 cm ECHO/Echo Complete Interpretation Summary The left ventricular ejection fraction is 50 %. Normal LV size. Infero-Basal: Severely Hypokinetic. Mild segmental systolic dysfunction (see wall motion). Mean aortic valve gradient 10 mmHg. Mild (1+) eccentric aortic valve insufficiency. Ordering Physician: Anila Cervantes Performed By: Musa Gamez RCS
[2024-10-25] MEDS: Atorvastatin Calcium 40 MG Tablet PO (21:11)
[2024-10-25] MEDS: Acetaminophen 500 MG Tablet 1000 MG PO (21:11)
[2024-10-25] MEDS: 0.9% Normal Saline (1000mL) 1,000 ML 75 ML IV (21:22)
[2024-10-25 23:23] LABS: Partial Thromboplast Time 134.5 Seconds (24.1-36.2)
[2024-10-26] VITALS (16 sets, daily range): BP systolic 90–145; BP diastolic 51–75; PULSE 65–110; RESP 14–18; TEMP 36.1–37; O2SAT 93–99; BMI 26.9
--- NOTE | 2024-10-26 | IMM_PTH ---
PATIENT: RAJAN ROSEN LOC: [facility] U#:[id number] AGE/SX: 79/M ROOM: [facility] RE10/25/[address]: Dr. Bradford Terry MD : 1945 BED: 1 DIS: 10/27/2024 SPEC #: [id number] RECD: 10/27/24 11:24 STATUS: SOUT REQ #: [id number] IVAN: 10/26/24 00:[address]: Bradford Terry DEPT: IMMUNOHISTOCHEMISTRY RECD BY: Samir Jacobs ENTERED: 10/27/24 11:25 SP TYPE: IMMUNO OTHR DR: MD Dr. Anila Jaramillo, Tissues: THORACIC FLUID Procedures: RCC (add) NAPSIN A (add) Jalil Ret (add) CD20 (add) CD3 (add) CD45 (add) CD5 (add) CD79A (add) CK20 (add) CK5-6 (add) CK7 (add) CK8 (add) HEP PAR (add) TTF1 (add) Vimentin (add) Pankeratin (initial) P40 (add) PSAP (add) CD68 (ADD) MOC-31 (add) PHYSICIAN & INSTITUTION [place] [address] SPECIMEN INFORMATION: Tissue Source: Thoracentesis fluid Clinical Info: Pleural effusion Specimen Number: [id number] CPT code: 90137,64859i42 METHODOLOGY: Deparaffinized sections of prefer/formalin-fixed tissue or PAP/DQ stained slides are incubated with monoclonal/polyclonal antibodies/oligonucleotide probes. Localization is made via biotin free immunoperoxidase method. Appropriate controls are performed and reacted as expected. Results on target cell population are indicated in the following table: RESULTS: ANTIBODY / CLONE RESULT AE1-3 (AE1/AE3/PCK26) negative CK7 (OV-TL12/30) negative CK8 (12wnenB50) negative CK20 (KS20.8) negative MOC-31 (4561) negative Vimentin (V9) negative CD68 (KP-1) negative TTF-1 (8G7G3/1) negative Napsin A (Rabbit Polyclonal) negative HepPar (OCh1E5) negative RCC (PN-15) negative PSAP (PASE/4LJ) negative CALRET (polyclonal) negative CK5-6 (D5 & 1684) negative P40 (BC28) negative CD3 (PS1) positive CD5 (SP10) positive CD20 (L26) negative CD45 (RP2/18) positive CD79a (11E3) negative, a few cells These tests were developed and their performance characteristics determined by [facility]. They may not have been cleared or approved by the U.S. Food and Drug Administration. The FDA has determined that such clearance or approval is not necessary. The above immunohistochemical/dualISH markers are ordered and reviewed by the Pathologist. INTERPRETATION: Thoracentesis fluid for cytology (cytospins and cellblock): Negative for malignant cells. See comment. COMMENT: Consistent with lymphocytic effusion, predominant T-cell in nature, favor reactive. SJ.mr 10/28/2024
--- NOTE | 2024-10-26 | FLU_PTH ---
PATIENT: RAJAN ROSEN LOC: [facility] U#:[id number] AGE/SX: 79/M ROOM: [facility] RE10/25/[address]: Dr. Bradford Terry MD : 1945 BED: 1 DIS: 10/27/2024 SPEC #: [id number] RECD: 10/26/24 09:30 STATUS: COURTNEY REQ #: [id number] IVAN: 10/26/24 00:[address]: Bradford Terry DEPT: CYTOLOGY RECD BY: Cherie Blood ENTERED: 10/26/24 11:16 SP TYPE: Fluid OTHR DR: MD Dr. Anila Jaramillo DO Tissues: Pleural fluid, NOS Procedures: Special Stain Group II Surgery Specimen Level IV Cytospin Fluid HEADER OPERATION: Thoracentesis fluid PRE-OP DIAGNOSIS: Pleural effusion TISSUE SUBMITTED: Thoracentesis fluid for cytology DIAGNOSIS CYTOLOGY Thoracentesis fluid for cytology (cytospins and cellblock): Negative for malignant cells. See comment. mr 10/27/2024 COMMENT Immunohistochemistry ([id number]) supports the above diagnosis. Increased lymphocytes are noted. Lymphocytes appear to be polytypic in nature, favor benign. Please make reference to previous specimen [id number] right anterior cervical lymph node with diagnosis of metastatic poorly differentiated non-small cell carcinoma, favor adenocarcinoma, consistent with lung primary and C24-31 and C24-208, thoracentesis fluids for cytology with diagnosis of negative for malignant cells. Correlation with clinical, radiologic findings and appropriate follow up are necessary. CYTOLOGY STUDY Slides are reviewed. CYTOLOGY GROSS Received is 80 ml of yellow cloudy fluid labeled with the patient's name and and designated per the requisition as Thoracentesis fluid. Submitted for cytology preparation including cell block. Mr 10/26/2024 TC:5 CPT: 04503,20667
--- NOTE | 2024-10-26 02:15 | NURSING ---
EKG brought to me during report by respiratory that was ordered by say d/t rhythm change. EKG printout shows sinus rhythm with marked sinus arrhythmia. picture of EKG sent to Dr. Cervantes @ 1930 and informed her of rhythm change. Stated that pt. is on cardizem gtt. @ 5 mg/hr. Dr. Cervantes asked if his HR and BP were ok. Informed her that HR was 76, BP was 105/59 and that it looked like it had decreased slightly from first arrival to floor, Dr. Cervantes stated that we will keep an eye on his HR and BP and if it drops more, we can maybe stop the Cardizem drip.
[2024-10-26] MEDS: dilTIAZem CD 240 MG Capsule PO (05:01)
[2024-10-26] MEDS: Levothyroxine 150 MCG Tablet PO (05:02)
[2024-10-26] MEDS: Acetaminophen 500 MG Tablet 1000 MG PO ×2 (05:02→15:18)
[2024-10-26 07:11] LABS: Absolute Lymphocyte Count 1.22 X10^3/uL (0.83-4.51); Absolute Neutrophil Count 6.2 X10^3/uL (2.0-7.7); Basophil# 0.08 X10^3/uL; Basophil% 0.9 % (0-1); Eosinophil# 0.35 X10^3/uL; Eosinophils% 4.1 % (0-5); Hematocrit 37.2 % (40-54); Hemoglobin 12.7 g/dL (13.0-16.5); Lymphocyte # 1.22 X10^3/ul (0.83-4.51); Lymphocyte % 14.2 % (19-41); Mean Corp Hgb Conc 34.1 g/dL (32-36); Mean Corpuscular Hgb 29.5 pg (27.0-32.0); Mean Corpuscular Volume 86.3 fL (80-94); Mean Platelet Vol. 8.5 fl (6.2-12.0); Monocyte# 0.75 X10^3/uL; Monocyte% 8.7 % (0-10); NRBC Flagged by Analyzer 0 % (0-5); Neutrophil # 6.16 X10^3/uL (2.7-7.7); Neutrophil % 71.8 % (47-70); Platelet Count 172 K/mm3 (150-450); RBC Distribution Width CV 12.4 % (11.6-14.6); RBC Distribution Width SD 39.5 fl (35.1-43.9); Red Blood Count 4.31 M/mm3 (4.6-6.2); White Blood Count 8.6 K/mm3 (4.4-11.0)
[2024-10-26 07:48] LABS: ALB/GLOB Ratio 0.6 RATIO (0.9-2.4); AST(SGOT) 17 U/L (15-37); Alanine Aminotransfer ALT/SGPT 14 U/L (16-61); Albumin, Serum 2.5 g/dL (3.2-5.0); Alkaline Phosphatase 82 U/L (45-117); Anion Gap 6 (5-15); BUN 15 mg/dL (7-18); BUN/Creat Ratio 19.1 RATIO (10-20); Calcium,Total 8.1 mg/dL (8.5-10.1); Chloride 105 mmol/L (98-107); Creatinine, Serum 0.79 mg/dL (0.70-1.30); EST Glomerular Filtration Rate 101 mL/min (>60); Est Glom Filt Rate - Afr Amer 122 mL/min (>60); Estimated Creatinine Clearance 67.57 ml/min; Globulin 4.1 g/dL (2.2-4.2); Glucose 96 mg/dL (74-106); Magnesium 1.8 mg/dL (1.6-2.6); Phosphorus 3.2 mg/dL (2.5-4.9); Potassium 3.4 mmol/L (3.5-5.1); Protein, Total 6.6 g/dL (6.4-8.2); Sodium Level 135 mmol/L (136-145)
[2024-10-26 08:27] LABS: International Normalized Ratio 1.1; Prothrombin Time (Protime)PT. 14.6 SECONDS (11.7-14.9)
[2024-10-26 08:29] LABS: Partial Thromboplast Time 56.2 Seconds (24.1-36.2)
--- NOTE | 2024-10-26 08:48 | NURSING ---
taken down for thoracentesis
[2024-10-26] MEDS: Lidocaine 2% (20 ml mdv) 20 ML Vial INFILT (09:05)
--- NOTE | 2024-10-26 09:15 | RAD_ITS ---
STUDY: X-RAY CHEST REASON FOR EXAM: Male, 79 years old. POST THORA TECHNIQUE: AP inspiration and expiration views. COMPARISON: Comparison is made with prior study dated April 24, 2025. FINDINGS: The patient is status post right thoracentesis. No evidence of pneumothorax. Mild residual parenchymal changes at the right lung base. A right-sided Port-A-Cath is seen with the tip in the right atrium. EKG electrodes are seen. RAD/Chest Insp/Exp 2 View IMPRESSION: Status post right thoracentesis. No evidence of pneumothorax. Electronically Signed: Brayan Chaves MD at 9:34 EST ,
--- NOTE | 2024-10-26 09:25 | PCM.OPRPT ---
Problems Associated Problem List Diagnoses (1) Pleural effusion on right: Multi Select Codes Radiology Radiology US Procedures: 52470 Thoracentesis Operative Report (Standard) Operative Information Date of Procedure: 10/26/24 Pre-Operative Diagnosis: Pleural effusion Post-Operative Diagnosis: Pleural effusion Surgery/Procedure Performed: Ultrasound-guided thoracentesis computer systems security analyst: No Type of Anesthesia: Local Procedure Start Time: 09:00 Procedure Stop Time: 09:16 Select all DRAINS/GRAFTS/IMPLANTS that apply: None Estimated Blood Loss: 0 Specimen collected: Yes Description of specimen(s) removed: 100 cc of pleural fluid sent to lab Description of surgery: PROCEDURE: Ultrasound Guided Thoracentesis ORDERING PROVIDER: Dr. Terry INDICATION: Male, 79 years old. Pleural effusion. PROVIDER: Adelina Mckeon CNP PROCEDURE: The risks, benefits, and alternatives to the procedure were explained to the patient. The specific risks of bleeding, infection, and pneumothorax requiring chest tube insertion were discussed and accepted. Written informed consent was obtained. The patient was placed in the sitting, upright position. Ultrasonographic evaluation of the bilateral lower pleural spaces was carried out. An adequate pocket was identified in the right lower lobe. The overlying skin was prepped with chlorhexidine and draped in sterile fashion. 2 % lidocaine was administered subcutaneously for local anesthesia. Under ultrasound guidance, a 5-Occitan thoracentesis needle/catheter system was advanced into the right posterior lower pleural fluid collection. 2050 ml of clear yellow colored fluid was drained. The catheter was removed, and a sterile dressing was applied. The patient tolerated the procedure well. A chest x-ray was ordered. IMPRESSION: Successful ultrasound guided thoracentesis of right pleural effusion. Surgical Findings: None Complications Complications: No
--- NOTE | 2024-10-26 09:43 | PN.HOSP_ITS ---
Reason for Visit Reason for Visit: Diagnoses Elevated white blood cell count, unspecified (10/25/24) Unspecified atrial fibrillation (10/25/24) Pleural effusion, not elsewhere classified (10/25/24) Nausea with vomiting, unspecified (10/25/24) Weakness (10/25/24) Objective Data Objective Data Vital Signs: Vital Signs Temp Pulse Resp BP Pulse Ox O2 Del Method 97.8 F 71 18 115/64 95 Room Air 10/26/24 08:19 10/26/24 09:31 10/26/24 09:31 10/26/24 09:31 10/26/24 08:19 10/26/24 09:31 Oxygen Delivery Method Room Air Weight: 166 lb 7.184 oz Body Mass Index (BMI) 26.9 Intake & Output: Intake and Output for Last 24 Hours 10/24/24 10/25/24 10/26/24 23:59 23:59 23:59 Intake Total 2100.46 / 2305.46 1248 / 1248 Output Total 2500 / 2500 Balance 2100.46 / 2005.46 -1252 / -1252 Lab / Micro Data 10/26/24 07:04 10/26/24 07:04 Labs: Laboratory Results - last 24 hr 10/25/24 14:25: PT 14.3, INR 1.1, APTT 35.4 10/25/24 14:52: WBC 14.2 H, RBC 4.85, Hgb 14.2, Hct 42.3, MCV 87.2, MCH 29.3, MCHC 33.6, RDW Std Deviation 39.8, RDW Coeff of Gino 12.4, Plt Count 196, MPV 8.7, Immature Gran % (Auto) 0.500, Neut % (Auto) 87.0 H, Lymph % (Auto) 4.7 L, [place] % (Auto) 6.3, Eos % (Auto) 1.0, Baso % (Auto) 0.5, Absolute Neuts (auto) 12.4 H, Absolute Lymphs (auto) 0.66 L, Nucleated RBC % 0, Sodium 134 L, Potassium 4.0, Chloride 99, Carbon Dioxide 28.0, Anion Gap 7, BUN 19 H, Creatinine 1.08, Estim Creat Clear Calc 54.88, Est GFR (MDRD) Af Amer 85, Est GFR (MDRD) Non-Af 70, BUN/Creatinine Ratio 17.6, Glucose 133 H, Calcium 8.9, Troponin I High Sens 7 10/25/24 16:33: PT 14.3, INR 1.1, APTT 35.2, Procalcitonin 0.06, Urine Color Yellow, Urine Clarity Clear, Urine pH 7.0, Ur Specific [place] 1.005, Urine Protein Negative, Urine Glucose (UA) Normal, Urine Ketones 5 H, Urine Occult Blood 10 H, Urine Nitrite Negative, Urine Bilirubin Negative, Urine Urobilinogen Normal, Ur Leukocyte Esterase 500 H, Urine RBC 0-5 SEEN, Urine WBC 10-25 SEEN, Ur Squamous Epith Cells 0-5 SEEN, Urine Bacteria 0 SEEN, Urine Mucus 0 SEEN 10/25/24 16:36: Lactate Dehydrogenase 152 10/25/24 22:51: APTT 134.5 H* 10/26/24 07:04: WBC 8.6, RBC 4.31 L, Hgb 12.7 L, Hct 37.2 L, MCV 86.3, MCH 29.5, MCHC 34.1, RDW Std Deviation 39.5, RDW Coeff of Gino 12.4, Plt Count 172, MPV 8.5, Immature Gran % (Auto) 0.300, Neut % (Auto) 71.8 H, Lymph % (Auto) 14.2 L, [place] % (Auto) 8.7, Eos % (Auto) 4.1, Baso % (Auto) 0.9, Absolute Neuts (auto) 6.2, Absolute Lymphs (auto) 1.22, Nucleated RBC % 0, PT 14.6, INR 1.1, APTT 56.2 H, Sodium 135 L, Potassium 3.4 L, Chloride 105, Carbon Dioxide 24.0, Anion Gap 6, BUN 15, Creatinine 0.79, Estim Creat Clear Calc 67.57, Est GFR (MDRD) Af Amer 122, Est GFR (MDRD) Non-Af 101, BUN/Creatinine Ratio 19.1, Glucose 96, Calcium 8.1 L, Phosphorus 3.2, Magnesium 1.8, Total Bilirubin 0.90, AST 17, ALT 14 L, Alkaline Phosphatase 82, Total Protein 6.6, Albumin 2.5 L, Globulin 4.1, A lbumin/Globulin Ratio 0.6 L, TSH 5.470 H Micro: Microbiology 10/25/24 20:22 Mucosa - Nose SARS-CoV-2, Influenza & RSV (PCR) - Final Radiography Diagnostic Testing: Radiology Impression Chest X-Ray 10/25/24 15:35 IMPRESSION: 1. Persistent moderate to large right pleural effusion with adjacent passive atelectasis. 2. No other changes from before. Electronically Signed: Fernando Machuca MD at 16:01 EST , Chest CTA 10/25/24 16:20 IMPRESSION: 1. Rounded atelectasis at the posterior aspect of the left lower lobe with adjacent small pleural effusion. 2. Collapse of the majority of the right lower lobe. Partial collapse of the right middle lobe. Electronically Signed: Fernando Machuca MD at 16:54 EST , Chest X-Ray 10/26/24 09:15 IMPRESSION: Status post right thoracentesis. No evidence of pneumothorax. Electronically Signed: Brayan Chaves MD at 9:34 EST , Physical Exam Narrative Seen and examined. Patient was admitted with generalized weakness not eating well and found to have A-fib. Patient stated he has history of A-fib in the past. Patient denies any signs symptoms related to A-fib including tachycardia, bradycardia/palpitation/chest pressure or shortness of breath. Had thoracocentesis in about 2050 mL fluid drained from right effusion Physical exam General: Alert, Oriented x3, Cooperative HEENT: Atraumatic, PERRLA, EOMI, Normocephalic Oral: Oral mucosa dry. No Gingival or Mucosal Lesions/ Ulcerations Neck: Supple, No JVD, Negative Carotid Bruits Chest wall/Lungs: Air entry equal in both lungs bases. Status post right thoracocentesis. No crepitation/rhonchi Cardiovascular: Sinus, regular rhythm. Normal S1, Normal S2, No M/G/R Abdomen: Bowel Sounds Present, Soft, Non Tender, Non-Distended : No dysuria. No renal angle tenderness. No suprapubic tenderness. Extremities: No edema, Capillary Refill Less than 3 Seconds Skin: No rashes, No breakdown Musculoskeletal: No Tenderness to Palpation of Joints or Extremities Neurological: Cranial nerves II-XII grossly intact, DTR 2+/4. No acute focal neurological deficit. Psych/Mental Status: Flat affect, slow to respond and process, possible early dementia Assessment & Plan Assessment/Plan (1) Nausea & vomiting: (2) Leukocytosis: (3) Pleural effusion on right: (4) Weakness: (5) Atrial fibrillation with RVR: PLAN: Plan This 79-year-old gentleman was admitted with generalized weakness, not adequate diet, slow to respond and found to have A-fib. History of paroxysmal A-fib. Large right pleural effusion status post thoracocentesis 1. Paroxysmal A-fib with RVR: Patient is being admitted in PCU. Cardizem and heparin drip was initiated in ED but discontinued now. Eliquis 5 mg twice daily after thoracocentesis started. It is not new onset A-fib. TSH 5.47. Free T4 ordered. Mild hypokalemia, potassium getting corrected. Serum magnesium and phosphorus normal. 2. Large right pleural effusion possible precipitating paroxysmal A-fib: Patient had thoracocentesis and 2050 mL was drained. Postprocedure x-ray does not show pneumothorax. Fluid analysis pending. Total WBC 38, polymorph 2.8, mononuclear 97. Fluid culture pending. 2%. Repeat WBC count is normal. No suspected focus of infection. 3. Metastatic non-small lung cancer: Stage IV disease. Patient on checkpoint inhibitor. Follows oncologist 4. Generalized weakness: PT OT and manager of case management consult ordered. 5. Chemo induced adrenal insufficiency: Home cortisone dose continued. Heart rate is regular in normal range. BP on lower side. 7. Essential hypertension/hyperlipidemia -Continue home atorvastatin -Continue home metoprolol hypothyroidism -Continue home levothyroxine DVT prophylaxis On Eliquis 5 mg twice daily CODE STATUS -Per discussion on admission with daughter at the bedside patient states he would like to remain full code at this time we discussed what that meant and he states he is not ready to . Charges/Coding Visit Charges Inpatient E&M: 61865 Subs Hosp L2
[2024-10-26 09:49] LABS: Cytology, Body Fluid / CSF SEE PATHOLOGY REPORT
--- NOTE | 2024-10-26 10:00 | CASEMGMT ---
RN CM ASSISTANT STRENGTH COACH CM?to room to meet with patient for initial transition planning/care coordination assessment. RN CM?introduced self and role at [facility]. Pt voices understanding and consents to assessment?at this time. Pt resting in bed in no distress at this time. Dtr, Joo, and 2 friends came into room while RN CM doing assessment and pt agreeable to them being present. Pt is A/O at this time and answers all questions appropriately, but is somewhat forgetful. Care providers, pharmacy, and demographics verified/updated at this time. Strata:?3 PCP: Dr Zaldivar Specialists: Dr Liu and Marie, TAIL TRIMMER-oncology, Pardeep Mckeon, TAIL TRIMMER-pulmonology, Dr Butcher-endocrin, Dr Chauhan-cardiology Preferred Pharmacy: [facility] Retail Insurance: [employer] Prescription Benefit: yes LNOK: 3 daughters: Shelia Munson Terry Living Arrangements: Lives w/20-yr-old grandson in one-story home w/no steps to enter. Independent w/ADL's and manages his own medications. Dtr and friends get groceries. Friends check on him often, by calling or testing him. One of the friends @ bedside states she goes w/pt to sit with him during his chemo treatments. Transportation:?Pt states drives self and states no transportation concerns at this time. DME: States has the following DME: grab bars and rollator. Pt would like medical alert info, which was provided at this time. Pt states no need for further DME at this time. HHC/SNF: No hx of either. Pt states he is currently going to [facility] for OP therapy and he does not even know if he wants to resume this @ discharge, stating he was almost done with this. He declines wanting HHC at this time. Pt wishes to return home and states has no concerns with going home at time of discharge, stating, I feel like I will will be able to manage @ home w/out any problems. He and family were made aware therapy would work w/him and CM will f/u re: any recommendations. They voice understanding. CM?to follow for any further discharge planning/needs. Pt and family voice no further concerns/needs at this time. Advised them to ask for CM?if any further questions/concerns/needs arise. They voice understanding. Pt Plan: Home w/possible NIKHIL of OP therapy. Plan: TBD by progress w/therapy. Follow for possible anti-coag @ discharge. Bernard TREJON RN CM
[2024-10-26 10:54] LABS: Body Fluid Mononuclear WBC # 1.313 10^3/uL; Body Fluid Mononuclear WBC % 97.2 %; Body Fluid Polynuclear WBC # 0.038 10^3/uL; Body Fluid Polynuclear WBC % 2.8 %; White Blood Count/Body Fluid 1.351 10^3/uL
[2024-10-26 11:04] LABS: Appearance/Body Fluid CLEAR; Auto B Fluid Analyzer BKGD Ct COUNTS W/IN LIMITS (W/IN LIMITS); Color/Body Fluid YELLOW; Source- Body Fluid THORACENTESIS
[2024-10-26 11:17] LABS: Red Cell Count/Body Fluid 41 /mm3
[2024-10-26] MEDS: Hydrocortisone 10 MG Tablet PO (11:29)
[2024-10-26] MEDS: APIXABAN 5 MG TABLET PO ×2 (11:31→21:33)
[2024-10-26 11:45] LABS: Lymphocytes 89 %; Monocytes 10 %; Neutrophil (Segs) 1 %
[2024-10-26 11:46] LABS: Body Fluid QC Type(s) BF1Q
[2024-10-26] MEDS: Metoprolol(XL)Succ 50 MG Tablet PO (12:43)
[2024-10-26] MEDS: Hydrocortisone 10 MG Tablet 5 MG PO (15:17)
[2024-10-26] MEDS: Potassium Chloride Oral Tablet 20 MEQ 40 MEQ PO (15:21)
[2024-10-26 16:19] LABS: Pathologist Comment/Body Fluid Reviewed
[2024-10-26] MEDS: dilTIAZem CD 180 MG Capsule PO (21:33)
[2024-10-26] MEDS: Magnesium Chloride 64 MG Delay Rel.Tablet 128 MG PO (21:33)
[2024-10-26] MEDS: Atorvastatin Calcium 40 MG Tablet PO (21:33)
[2024-10-26 23:20] LABS: Glucose, Body Fluid 107 mg/dL (40-70); LDH,Body Fluid 138 Units/L (Not Establ.); Protein, Body Fluid 4.5 g/dL (Not Establ.)
[2024-10-27 03:29] VITALS: BP 133/54; PULSE 68; RESP 18; TEMP 36.2; O2SAT 99
[2024-10-27 04:18] LABS: Absolute Lymphocyte Count 1.12 X10^3/uL (0.83-4.51); Absolute Neutrophil Count 7.6 X10^3/uL (2.0-7.7); Basophil# 0.06 X10^3/uL; Basophil% 0.6 % (0-1); Eosinophil# 0.32 X10^3/uL; Eosinophils% 3.3 % (0-5); Hematocrit 36.1 % (40-54); Hemoglobin 12.1 g/dL (13.0-16.5); Lymphocyte # 1.12 X10^3/ul (0.83-4.51); Lymphocyte % 11.4 % (19-41); Mean Corp Hgb Conc 33.5 g/dL (32-36); Mean Corpuscular Hgb 29.1 pg (27.0-32.0); Mean Corpuscular Volume 86.8 fL (80-94); Mean Platelet Vol. 8.5 fl (6.2-12.0); Monocyte# 0.68 X10^3/uL; Monocyte% 6.9 % (0-10); NRBC Flagged by Analyzer 0 % (0-5); Neutrophil # 7.59 X10^3/uL (2.7-7.7); Neutrophil % 77.5 % (47-70); Platelet Count 189 K/mm3 (150-450); RBC Distribution Width CV 12.6 % (11.6-14.6); RBC Distribution Width SD 39.8 fl (35.1-43.9); Red Blood Count 4.16 M/mm3 (4.6-6.2); White Blood Count 9.8 K/mm3 (4.4-11.0)
[2024-10-27 04:40] LABS: Anion Gap 6 (5-15); BUN 17 mg/dL (7-18); BUN/Creat Ratio 19.1 RATIO (10-20); Calcium,Total 8.5 mg/dL (8.5-10.1); Chloride 106 mmol/L (98-107); Creatinine, Serum 0.89 mg/dL (0.70-1.30); EST Glomerular Filtration Rate 87 mL/min (>60); Est Glom Filt Rate - Afr Amer 106 mL/min (>60); Estimated Creatinine Clearance 60.73 ml/min; Glucose 99 mg/dL (74-106); Potassium 3.9 mmol/L (3.5-5.1); Sodium Level 136 mmol/L (136-145); T4 Free Direct 1.29 ng/dL (0.76-1.46)
[2024-10-27 05:11] VITALS: BMI 26.9
[2024-10-27] MEDS: Levothyroxine 150 MCG Tablet PO (05:12)
[2024-10-27 07:33] VITALS: O2SAT 97
--- NOTE | 2024-10-27 09:32 | PCM.PN.HOSP ---
Reason for Visit Reason for Visit: Diagnoses Elevated white blood cell count, unspecified (10/25/24) Unspecified atrial fibrillation (10/25/24) Pleural effusion, not elsewhere classified (10/25/24) Nausea with vomiting, unspecified (10/25/24) Weakness (10/25/24) Objective Data Objective Data Vital Signs: Vital Signs Temp Pulse Resp BP Pulse Ox O2 Del Method 97.2 F L 68 18 133/54 H 97 Room Air 10/27/24 03:29 10/27/24 03:29 10/27/24 03:29 10/27/24 03:29 10/27/24 07:33 10/27/24 07:33 Oxygen Delivery Method Room Air Weight: 166 lb 10.711 oz Body Mass Index (BMI) 26.9 Intake & Output: Intake and Output for Last 24 Hours 10/25/24 10/26/24 10/27/24 23:59 23:59 23:59 Intake Total 2100.46 / 2305.46 2083 / 2083 Output Total 2700 / 2800 100 / 100 Balance 2100.46 / 2005.46 -617 / -717 -100 / -100 Lab / Micro Data 10/27/24 04:02 10/27/24 04:02 Labs: Laboratory Results - last 24 hr 10/25/24 : Fluid Glucose 107 H, Fluid Total Protein 4.5, Fluid LDH 138 10/26/24 : Fluid Source THORACENTESIS, Fluid Color YELLOW, Fluid Appearance CLEAR, Fluid WBC 1.351, Fluid RBC 41, Fluid Tot Cell Count 1.360, Fld Polynuclear WBCs # 0.038, Fld Polynuclear WBCs % 2.8, Fluid Mononuclear WBCs 1.313, Fld Mononuclear WBCs % 97.2, Fluid Neutrophils 1, Fluid Lymphocytes 89, Fluid Monocytes 10, Fl Pathologist Comment Reviewed, Fluid Comment 2 SEE COMMENT 10/27/24 04:02: WBC 9.8, RBC 4.16 L, Hgb 12.1 L, Hct 36.1 L, MCV 86.8, MCH 29.1, MCHC 33.5, RDW Std Deviation 39.8, RDW Coeff of Gino 12.6, Plt Count 189, MPV 8.5, Immature Gran % (Auto) 0.300, Neut % (Auto) 77.5 H, Lymph % (Auto) 11.4 L, [place] % (Auto) 6.9, Eos % (Auto) 3.3, Baso % (Auto) 0.6, Absolute Neuts (auto) 7.6, Absolute Lymphs (auto) 1.12, Nucleated RBC % 0, Sodium 136, Potassium 3.9, Chloride 106, Carbon Dioxide 24.0, Anion Gap 6, BUN 17, Creatinine 0.89, Estim Creat Clear Calc 60.73, Est GFR (MDRD) Af Amer 106, Est GFR (MDRD) Non-Af 87, BUN/Creatinine Ratio 19.1, Glucose 99, Calcium 8.5, Free T4 1.29 Micro: Microbiology 10/26/24 Unknown Fluid - Thoracentesis Fluid Gram Stain - Final 10/26/24 Unknown Fluid - Thoracentesis Fluid Body Fluid Culture - Preliminary No growth-Final to follow 10/25/24 20:22 Mucosa - Nose SARS-CoV-2, Influenza & RSV (PCR) - Final Radiography Diagnostic Testing: Radiology Impression Echocardiogram 10/25/24 18:30 Interpretation Summary The left ventricular ejection fraction is 50 %. Normal LV size. Infero-Basal: Severely Hypokinetic. Mild segmental systolic dysfunction (see wall motion). Mean aortic valve gradient 10 mmHg. Mild (1+) eccentric aortic valve insufficiency. Ordering Physician: Anila Cervantes Performed By: Musa Gamez RCS Chest X-Ray 10/26/24 09:15 IMPRESSION: Status post right thoracentesis. No evidence of pneumothorax. Electronically Signed: Brayan Chaves MD at 9:34 EST , Physical Exam Narrative Seen and examined. Patient was admitted with generalized weakness not eating well and found to have A-fib. Patient stated he has history of A-fib in the past. Patient denies any signs symptoms related to A-fib including tachycardia, bradycardia/palpitation/chest pressure or shortness of breath. Had thoracocentesis in about 2050 mL fluid drained from right effusion Physical exam General: Alert, Oriented x3, Cooperative HEENT: Atraumatic, PERRLA, EOMI, Normocephalic Oral: Oral mucosa dry. No Gingival or Mucosal Lesions/ Ulcerations Neck: Supple, No JVD, Negative Carotid Bruits Chest wall/Lungs: Air entry equal in both lungs bases. Status post right thoracocentesis. No crepitation/rhonchi Cardiovascular: Sinus, regular rhythm. Normal S1, Normal S2, No M/G/R Abdomen: Bowel Sounds Present, Soft, Non Tender, Non-Distended : No dysuria. No renal angle tenderness. No suprapubic tenderness. Extremities: No edema, Capillary Refill Less than 3 Seconds Skin: No rashes, No breakdown Musculoskeletal: No Tenderness to Palpation of Joints or Extremities Neurological: Cranial nerves II-XII grossly intact, DTR 2+/4. No acute focal neurological deficit. Psych/Mental Status: Flat affect, slow to respond and process, possible early dementia Assessment & Plan Assessment/Plan (1) Nausea & vomiting: (2) Leukocytosis: (3) Pleural effusion on right: (4) Weakness: (5) Atrial fibrillation with RVR: PLAN: Plan This 79-year-old gentleman was admitted with generalized weakness, not adequate diet, slow to respond and found to have A-fib. History of paroxysmal A-fib. Large right pleural effusion status post thoracocentesis 1. Paroxysmal A-fib with RVR: Patient is being admitted in PCU. Cardizem and heparin drip was initiated in ED but discontinued now. Eliquis 5 mg twice daily after thoracocentesis started. It is not new onset A-fib. TSH 5.47. Free T4 ordered. Mild hypokalemia, potassium getting corrected. Serum magnesium and phosphorus normal. 2. Large right pleural effusion possible precipitating paroxysmal A-fib: Patient had thoracocentesis and 2050 mL was drained. Postprocedure x-ray does not show pneumothorax. Fluid analysis pending. Total WBC 38, polymorph 2.8, mononuclear 97. Fluid culture pending. 2%. Repeat WBC count is normal. No suspected focus of infection. 3. Metastatic non-small lung cancer: Stage IV disease. Patient on checkpoint inhibitor. Follows oncologist 4. Generalized weakness: PT OT and case manager specialist consult ordered. 5. Chemo induced adrenal insufficiency: Home cortisone dose continued. Heart rate is regular in normal range. BP on lower side. 7. Essential hypertension/hyperlipidemia -Continue home atorvastatin -Continue home metoprolol hypothyroidism -Continue home levothyroxine DVT prophylaxis On Eliquis 5 mg twice daily CODE STATUS -Per discussion on admission with daughter at the bedside patient states he would like to remain full code at this time we discussed what that meant and he states he is not ready to .
[2024-10-27 10:25] VITALS: BP 118/56; PULSE 75; RESP 16; TEMP 36.6; O2SAT 97
[2024-10-27] MEDS: APIXABAN 5 MG TABLET PO (10:30)
[2024-10-27] MEDS: dilTIAZem CD 180 MG Capsule PO (10:30)
[2024-10-27] MEDS: Potassium Chloride Oral Tablet 20 MEQ 40 MEQ PO (10:30)
[2024-10-27] MEDS: Hydrocortisone 10 MG Tablet PO (10:30)
[2024-10-27 10:31] VITALS: BP 118/56; PULSE 75
[2024-10-27] MEDS: Metoprolol(XL)Succ 50 MG Tablet PO (10:31)
[2024-10-27] MEDS: Magnesium Chloride 64 MG Delay Rel.Tablet 128 MG PO (10:37)
--- NOTE | 2024-10-27 11:32 | DCINST_ITS ---
Discharge Instructions Diet Discharge Diet: 2000 mg Sodium Diet DC O2, CPAP, BIPAP needs Home O2 Discharge instructions: No Dressing / Incision Discharge Activity: Return to Normal Activity Weight Bearing Status: Weight bearing as tolerated Dressing / Incision Call your doctor if you observe: Fever of 101 or Higher, Coldness, Increased Pain, Numbness or Tingling, Change in Color, Inability to urinate, Inability to have a bowel movement, Shortness of breath, Dizziness, Fainting spells, Swelling in the ankles, Chest pain, Prolonged hiccupping, Increased palpitations (irregular heartbeat) and Calf discomfort Follow Up Care When: IN 2 WEEKS Test Results: Test results from this visit will be discussed in further detail at your follow- up appointment, if applicable. Discharge Plan Admission Admit Date/Time: 10/25/24 16:03 Primary Reason for Your Visit: Right pleural effusion, acute on chronic HFpEF. New onset A-fib Attending Provider: Bradford Terry Primary Care Provider: Lisandro Zaldivar Consulting Providers: Anila Cervantes Instructions Patient Instructions: CLYDE RN Thoracentesis Dc Discharge Orders/Prescriptions Prescriptions: New metoprolol succinate 50 mg Tablet Extended Release 24 Hr 50 mg PO DAILY 30 Days Qty: 0 2RF Eliquis 5 mg Tablet 5 mg PO BID 30 Days Qty: 60 2RF furosemide [Lasix] 20 mg tablet 20 mg PO DAILY 30 Days Qty: 30 0RF diltiazem HCl 180 mg Capsule,Extended Release 24hr 180 mg PO Q12 30 Days Qty: 60 2RF Rx Instructions: Hold for heart less than 50 or systolic blood pressure less than 100 mmHg. potassium chloride 20 mEq Tablet,Er Particles/Crystals 20 meq PO DAILYCM 30 Days Qty: 30 0RF Continued levothyroxine 150 mcg tablet 150 mcg PO QDAY Qty: 90 3RF atorvastatin 40 mg tablet 40 mg PO QHS hydrocortisone 5 mg tablet 10 mg PO .am Rx Instructions: take 10mg at 8am 5mg at 1300 hydrocortisone 5 mg tablet 5 mg PO 1300 Patient Comments: 5mg at 1300 10 mg in am Rx Instructions: adrenal gland (DME) Handicap Placard See Rx Instructions .Route .MEDSUPPLY Qty: 1 0RF Rx Instructions: As directed Discontinued metoprolol succinate 25 mg tablet extended release 24 hr 12.5 mg PO DAILY Referrals / Follow Up: Lisandro Zaldivar MD [Primary Care Provider] - Jeremiah Chauhan MD [Med Staff - Active Staff] - Within 1 Month Disposition Disposition (needs filled in before D/C Order can be placed): Home Health Service
--- NOTE | 2024-10-27 13:10 | CASEMGMT ---
Addendum entered by Juliana Ibrahim 10/27/24 14:44: Pt discharging home on Eliquis. Per Jennifer in the pharmacy, cost is $117 and they will apply the 30-day free trial offer card. Shelia Jose, and pt made aware. They were made aware this is a [id number]-lifetime use card and to f/u with PCP if refills are not affordable. Shelia voices understanding. Per Elsi, they are able to accept pt, but states Dr Zaldivar is requesting a tele-health visit be made and done tomorrow and then he is willing to follow for HHC. Elsi states as long as pt attends the tele-health visit, they will do SOC on Sat. RAMIN SANCHEZ back to room and pt and Shelia made aware. While RAMIN SANCHEZ still in room, Shelia was already calling to schedule this. Pt and Shelia voice no further discharge needs/concerns. Bernard OLIVERA RN, CM Original Note: RAMIN SANCHEZ NOTE: Pt being discharged. RN CM to room. Pt sitting up in chair in room. Shelia Jose, @ bedside. Discussed discharge. Pt wishes to discharge home and states has no concerns going home. Discussed HHC. Pt initially declined, but Shelia jose, really felt like it was a good idea and encouraged pt to have HHC set up. He then was agreeable. Shelia states they choose [facility] and pt agreeable and they decline wanting list of other HHC options. Call placed to Elsi @ [facility] and referral made. Bernard OLIVERA RN, CM
--- NOTE | 2024-10-27 13:59 | PCM.DC.SUM ---
Providers Date of Admission: 10/25/24 Date of Discharge: 10/27/24 Primary Care Physician: Dr. Lisandro Zaldivar MD Reason For Visit: NEW ONSET AFIB W/ RVR, LARGE R EFFUSION Diagnosis Discharge Diagnosis (1) Nausea & vomiting: Status: Acute Code(s): R11.2 - Nausea with vomiting, unspecified (2) Leukocytosis: Status: Acute Code(s): D72.829 - Elevated white blood cell count, unspecified (3) Pleural effusion on right: Status: Acute Code(s): J90 - Pleural effusion, not elsewhere classified (4) Weakness: Status: Acute Code(s): R53.1 - Weakness (5) Atrial fibrillation with RVR: Status: Acute Code(s): I48.91 - Unspecified atrial fibrillation Plan This 79-year-old gentleman was admitted with generalized weakness, not adequate diet, slow to respond and found to have A-fib. Large right pleural effusion status post thoracocentesis 1. New onset A-fib with RVR: Patient is being admitted in PCU. Cardizem and heparin drip was initiated in ED but discontinued now. Eliquis 5 mg twice daily after thoracocentesis started. It is not new onset A-fib. TSH 5.47. Free T4 ordered. Mild hypokalemia, potassium getting corrected. Serum magnesium and phosphorus normal. 10/27: Patient yesterday said he had A-fib in the past but her daughter who is RN said he never had A-fib therefore it is new onset. Heart rate is controlled on metoprolol succinate 50 mg daily and Cardizem CD 180 mg twice daily and patient was given prescription for the same. Eliquis 5 mg twice daily also prescribed. 2. Large right pleural effusion possible precipitating paroxysmal A-fib possible from acute on chronic HFpEF: Patient had thoracocentesis and 2050 mL was drained. Postprocedure x-ray does not show pneumothorax. Fluid analysis pending. Total WBC 38, polymorph 2.8, mononuclear 97. Fluid culture pending. 2%. Repeat WBC count is normal. No suspected focus of infection. 10/27: Patient was given a prescription of Lasix and potassium supplement. Advised to follow-up with jd edwards consultant. Patient's daughter said he follows jd edwards consultant Dr. Chauhan as he had anticancer medication for lung cancer. Possible patient had acute on chronic HFpEF: Echo shows EF 50%, severely hypokinetic inferior basal, mild AI. EF is low normal but still does not qualify for HFrEF 3. Metastatic non-small lung cancer: Stage IV disease. Patient on checkpoint inhibitor. Follows oncologist 4. Generalized weakness: PT OT and counseling case manager consult ordered. 5. Chemo induced adrenal insufficiency: Home cortisone dose continued. Heart rate is regular in normal range. BP on lower side. 7. Essential hypertension/hyperlipidemia -Continue home atorvastatin -Continue home metoprolol hypothyroidism -Continue home levothyroxine DVT prophylaxis On Eliquis 5 mg twice daily CODE STATUS -Per discussion on admission with daughter at the bedside patient states he would like to remain full code at this time we discussed what that meant and he states he is not ready to . I talked to the patient's daughter about the discharge plan and medications and follow-up. Discharge medication reconciliation done. Discharge follow-up instructions completed. Discharge process discussed with the patient and all questions were answered to patient's satisfaction. Follow with PCP in 1 to 2 weeks Total time spent, exact 35 minutes on discharge meds reconciliation, examination, coordination of care with nurses and ancillary staff, review of imaging and blood test and discussion with the patient on follow-up instructions. Echocardiogram 10/25/24 18:30 Interpretation Summary The left ventricular ejection fraction is 50 %. Normal LV size. Infero-Basal: Severely Hypokinetic. Mild segmental systolic dysfunction (see wall motion). Mean aortic valve gradient 10 mmHg. Mild (1+) eccentric aortic valve insufficiency. Medications at Discharge Home Medications Handicap Placard #1 ea 07/30/23 levothyroxine 150 mcg tablet 150 mcg PO QDAY thyroid #90 tabs 09/01/24 atorvastatin 40 mg tablet 40 mg PO QHS cholesterol 10/25/24 hydrocortisone 5 mg tablet 5 mg PO 1300 adrenal gland 10/25/24 hydrocortisone 5 mg tablet 10 mg PO .am adrenal gland 10/25/24 apixaban 5 mg tablet (Eliquis) 5 mg PO BID 30 days #60 tabs 10/27/24 diltiazem HCl 180 mg capsule,extended release 24 hr 180 mg PO Q12 30 days #60 caps 10/27/24 furosemide 20 mg tablet (Lasix) 20 mg PO DAILY 1 month #30 tabs 10/27/24 metoprolol succinate 50 mg tablet,extended release 24 hr 50 mg PO DAILY 30 days #0 tabs 10/27/24 potassium chloride 20 mEq tablet,extended release(part/cryst) 20 meq PO DAILYCM 30 days #30 tabs 10/27/24 Physical Exam Narrative Seen and examined. Patient performed well. Heart rate is controlled. Had thoracocentesis in about 2050 mL fluid drained from right effusion Physical exam General: Alert, Oriented x3, Cooperative HEENT: Atraumatic, PERRLA, EOMI, Normocephalic Oral: Oral mucosa moist. No Gingival or Mucosal Lesions/ Ulcerations Neck: Supple, No JVD, Negative Carotid Bruits Chest wall/Lungs: Air entry equal in both lungs bases. Status post right thoracocentesis. No crepitation/rhonchi Cardiovascular: Sinus, regular rhythm. Normal S1, Normal S2, No M/G/R Abdomen: Bowel Sounds Present, Soft, Non Tender, Non-Distended : No dysuria. No renal angle tenderness. No suprapubic tenderness. Extremities: No edema, Capillary Refill Less than 3 Seconds Skin: No rashes, No breakdown Musculoskeletal: No Tenderness to Palpation of Joints or Extremities Neurological: Cranial nerves II-XII grossly intact, DTR 2+/4. No acute focal neurological deficit. Psych/Mental Status: Flat affect, slow to respond and process, possible early dementia Weight / BMI Weight Weight: 166 lb 10.711 oz Body Mass Index (BMI) 26.9 ABG / Lab / Microbiology Data 10/27/24 04:02 10/27/24 04:02 Laboratory: Laboratory Results - last 24 hr 10/25/24 : Fluid Glucose 107 H, Fluid Total Protein 4.5, Fluid LDH 138 10/26/24 : Fl Pathologist Comment Reviewed 10/27/24 04:02: WBC 9.8, RBC 4.16 L, Hgb 12.1 L, Hct 36.1 L, MCV 86.8, MCH 29.1, MCHC 33.5, RDW Std Deviation 39.8, RDW Coeff of Gino 12.6, Plt Count 189, MPV 8.5, Immature Gran % (Auto) 0.300, Neut % (Auto) 77.5 H, Lymph % (Auto) 11.4 L, [place] % (Auto) 6.9, Eos % (Auto) 3.3, Baso % (Auto) 0.6, Absolute Neuts (auto) 7.6, Absolute Lymphs (auto) 1.12, Nucleated RBC % 0, Sodium 136, Potassium 3.9, Chloride 106, Carbon Dioxide 24.0, Anion Gap 6, BUN 17, Creatinine 0.89, Estim Creat Clear Calc 60.73, Est GFR (MDRD) Af Amer 106, Est GFR (MDRD) Non-Af 87, BUN/Creatinine Ratio 19.1, Glucose 99, Calcium 8.5, Free T4 1.29 Microbiology: Microbiology 10/25/24 16:33 Blood Culture (Wb) - Venous Blood Culture - Preliminary No growth in 48 hours. 10/26/24 Unknown Fluid - Thoracentesis Fluid Gram Stain - Final 10/26/24 Unknown Fluid - Thoracentesis Fluid Body Fluid Culture - Preliminary No growth-Final to follow 10/25/24 20:22 Mucosa - Nose SARS-CoV-2, Influenza & RSV (PCR) - Final D/C Instructions Discharge Diet: 2000 mg Sodium Diet Weight Bearing Status: Weight bearing as tolerated Call your doctor if you observe: Fever of 101 or Higher, Coldness, Increased Pain, Numbness or Tingling, Change in Color, Inability to urinate, Inability to have a bowel movement, Shortness of breath, Dizziness, Fainting spells, Swelling in the ankles, Chest pain, Prolonged hiccupping, Increased palpitations (irregular heartbeat) and Calf discomfort DC O2, CPAP, BIPAP Needs Home O2 Discharge instructions: No When: IN 2 WEEKS Meaningful Use Info Meaningful Use Meaningful Use Diagnoses (Choose all that apply): None applicable Ischemic Stroke Statin Dosing Therapy Reference: STATIN DOSE THERAPY REFERENCE: * Patients > 75 years receive moderate or high dose statin therapy. * Patients 75 years or YOUNGER should receive HIGH intensity statin dose unless contraindicated. You will be required to document reason for non-treatment if statin daily dose does not meet guidelines. HIGH DOSE STATIN THERAPY DAILY Atorvastatin > than or = to 40 mg Rosuvastatin > than or = to 20 mg Amlodipine + Atorvastatin > than or = to 2.5/40 mg Ezetimibe + Simvastatin 10/80 mg Simvastatin 80mg Discharge Plan Admission Admit Date/Time: 10/25/24 16:03 Primary Reason for Your Visit: Right pleural effusion, acute on chronic HFpEF. New onset A-fib Attending Provider: Bradford Terry Primary Care Provider: Lisandro Zaldivar Consulting Providers: Anila Cervantes Instructions Patient Instructions: CLYDE RN Thoracentesis Dc Discharge Orders/Prescriptions Prescriptions: New metoprolol succinate 50 mg Tablet Extended Release 24 Hr 50 mg PO DAILY 30 Days Qty: 0 2RF Eliquis 5 mg Tablet 5 mg PO BID 30 Days Qty: 60 2RF furosemide [Lasix] 20 mg tablet 20 mg PO DAILY 30 Days Qty: 30 0RF diltiazem HCl 180 mg Capsule,Extended Release 24hr 180 mg PO Q12 30 Days Qty: 60 2RF Rx Instructions: Hold for heart less than 50 or systolic blood pressure less than 100 mmHg. potassium chloride 20 mEq Tablet,Er Particles/Crystals 20 meq PO DAILYCM 30 Days Qty: 30 0RF Continued levothyroxine 150 mcg tablet 150 mcg PO QDAY Qty: 90 3RF atorvastatin 40 mg tablet 40 mg PO QHS hydrocortisone 5 mg tablet 10 mg PO .am Rx Instructions: take 10mg at 8am 5mg at 1300 hydrocortisone 5 mg tablet 5 mg PO 1300 Patient Comments: 5mg at 1300 10 mg in am Rx Instructions: adrenal gland (DME) Handicap Placard See Rx Instructions .Route .MEDSUPPLY Qty: 1 0RF Rx Instructions: As directed Discontinued metoprolol succinate 25 mg tablet extended release 24 hr 12.5 mg PO DAILY Referrals / Follow Up: Jeremiah Chauhan MD [Med Staff - Active Staff] - Within 1 Month Lisandro Zaldivar MD [Primary Care Provider] - Disposition Disposition (needs filled in before D/C Order can be placed): Home Health Service Charges/Coding Visit Charges Inpatient E&M: 44331 Disch Hosp >30min
[2024-10-27] MEDS: Hydrocortisone 10 MG Tablet 5 MG PO (14:02)
[2024-10-27 14:05] VITALS: BP 114/58; PULSE 68; RESP 16; TEMP 36.4; O2SAT 100
[2024-10-27 14:11] VITALS: BP 168/78
== END 2024-10-27 16:20 | disposition home health service (06) | DRG 308 ==
LOC: ED 15:53 → PCU 20:05
PROVIDERS: Admitting Provider Internal Medicine; Emergency Provider Emergency Medicine; PCP Family Medicine; Visit Provider Internal Medicine
DX: I48.0 Paroxysmal atrial fibrillation (principal); I50.33 Acute on chronic diastolic (congestive) heart failure; J91.8 Pleural effusion in other conditions classified elsewhere; E27.3 Drug-induced adrenocortical insufficiency; C34.90 Malignant neoplasm of unspecified part of unspecified bronchus or lung; E78.00 Pure hypercholesterolemia, unspecified; D72.829 Elevated white blood cell count, unspecified; E87.6 Hypokalemia; I11.0 Hypertensive heart disease with heart failure; I35.1 Nonrheumatic aortic (valve) insufficiency; R11.2 Nausea with vomiting, unspecified; I25.10 Atherosclerotic heart disease of native coronary artery without angina pectoris; T45.1X5A Adverse effect of antineoplastic and immunosuppressive drugs, initial encounter; R53.1 Weakness; Z72.4 Inappropriate diet and eating habits; Z11.52 Encounter for screening for COVID-19; Z79.890 Hormone replacement therapy; Z79.899 Other long term (current) drug therapy
CPT/HCPCS: 32555; 36415; 71045; 71046; 71275; 80048; 80053; 81001; 81002; 82945; 83615; 83735; 84100; 84145; 84157; 84439; 84443; 84484; 85025; 85610; 85730; 87040; 87070; 87075; 87205; 87631; 88108; 88305; 88313; 88341; 88342; 89050; 93005; 93306; 97116; 97162; 97530; 97802; 99285; Q9967; A4216

== ENCOUNTER 2024-12-10 12:59 | Inpatient (IN) | payer MEDICARE, SELFPAY ==
[2024-12-10 13:00] VITALS: BP 92/59; PULSE 75; RESP 18; TEMP 36.1; O2SAT 91
[2024-12-10 13:01] VITALS: BMI 26.4
--- NOTE | 2024-12-10 13:29 | EKG12_ITS ---
Test Reason : general Blood Pressure : */* mmHG Vent. Rate : 66 BPM Atrial Rate : 66 BPM P-R Int : 164 ms QRS Dur : 102 ms QT Int : 472 ms P-R-T Axes : 60 -6 69 degrees QTcB Int : 494 ms Normal sinus rhythm Inferior infarct (cited on or before 25-Oct-2024) Abnormal ECG Confirmed by Sumit Morfin ([id number]), tape editor RU COOK ([id number]) on 12/12/2024 7:03:25 AM Referred By: Confirmed By: Sumit Morfin
--- NOTE | 2024-12-10 13:29 | RAD_ITS ---
PROCEDURE: CHEST 1 VIEW (PORTABLE) REASON FOR EXAM: Cough TECHNIQUE: Frontal view of the chest COMPARISON: 10/26/2024 FINDINGS: Right IJ chest port with tip in the SVC/right atrial junction The heart size is normal. The mediastinal contour is unremarkable. Right basilar opacity Degenerative changes are identified within the thoracic spine. RAD/Chest 1 View (Portable) IMPRESSION: Right basilar opacity which may represent atelectasis, airspace disease, and/or pleural effusion. Reading Location: [facility]
--- NOTE | 2024-12-10 13:36 | EDS_ITS ---
<Statement entered by Bhaskar Dugan DO - 12/10/24 15:57> Patient was seen and examined with nurse practitioner Carloz All components of the history and physical confirmed and agreed. History of present illness and physical exam: Patient is a 79-year-old male past medical history of lung cancer, hypertension, lipidemia, atrial fibrillation on Eliquis who presented to the emergency department for the chief complaint of generalized weakness. Per the patient's daughter the last 3 to 4 days the patient has not been eating or drinking not acting his normal self. Patient has been unsteady and noted that his blood pressure has been on the lower side at home. They were concerned for dehydration and some else going on therefore they brought him here for the valuation management. Review of systems: Agree with above Physical exam: Agree with above will add on patient completed finger-nose test bilaterally, difficulty Patient presents with MDM Patient is a 79-year-old male who presented to the emergency department with a chief complaint of decreased appetite, altered mental status. On the differential diagnose includes Melamin to electrolyte abnormality, intracranial hemorrhage, stroke, ACS, pneumonia, UTI. Once workup is obtained reviewed he will be reevaluated. Patient CBC was reviewed showed evidence of white blood cell count of 14,000, hemoglobin 1.4, plate count was noted be 200. Patient sodium normal 136, potassium normal 3.6, creatinine normal 0.85. Patient AST and ALT are 21 and 15 respectively, urinalysis was reviewed and showed 100 leukocyte esterase 5-10 white cells with 1+ bacteria he does not have any urinary symptoms we will send this for culture. Patient chest x-ray reviewed by myself and by radiology showed a right basilar opacity which may represent atelectasis airspace disease and/or pleural effusion. I do believe that this is likely atelectasis as he does not have any respiratory symptoms. Patient CT head and brain without contrast showed hypodense region in the right parietal occipital lobe concerning for acute/subacute ischemia. Age-appropriate volume loss and remote small vessel ischemic change. Patient's EKG reviewed and showed sinus rhythm with a rate of 66 bpm. Patient case was discussed with hospitalist by Carloz for admission. Patient will be admitted for further evaluation management he will be given 325 mg aspirin. Patient notified as well as family at bedside all question concerns answered. Final impression: Weakness Altered mental status Abnormal CT head Disposition: Patient will be admitted to the hospital for evaluation management Supervising attending attestation: Bhaskar CATES History of Present Illness Chief Complaint: Hypotension Narrative Narrative: Patient is a 79-year-old male with history of lung cancer, hypertension hyperlipidemia, on Eliquis secondary to A-fib who presents to the [facility] for weakness. Per the daughter, over the last 3 to 4 days, the patient has not been eating or drinking. The patient has been unsteady, the blood pressure has been 90 systolic and low. Per the daughter, the patient is not acting himself. And they are concerned for dehydration or something else going on. Patient has no complaints. [facility] Medical History (Updated 12/10/24 @ 15:04 by ALEXUS Lund) Constipation Encounter for antineoplastic immunotherapy Atrial fibrillation with RVR Wears glasses History of steroid therapy High cholesterol Gastric reflux Non-smoker Shortness of breath on exertion History of edema History of echocardiogram History of rheumatic fever Hypertension Cardiology follow-up encounter Dehydration Adrenal insufficiency Weakness Elevated bilirubin Hyponatremia Imbalance Nausea Thrombocytopenia Pleural effusion, bilateral Stomatitis Drug induced neutropenia Impaired glucose tolerance Encounter for chemotherapy management Edema of extremities Atherosclerotic heart disease of [place] coronary artery without angina pectoris Bilateral lower leg cellulitis Nonrheumatic aortic (valve) stenosis Obesity Elevated liver enzymes Essential (primary) hypertension Chemotherapy management, encounter for Bacteremia (12/21/19) Rash Hoarseness of voice Encounter for adjustment and management of vascular access device Immunotherapy encounter Anemia Localized swelling, mass and lump, neck Encounter for education Hypothyroidism HLD (hyperlipidemia) Non-small cell carcinoma of lung Pneumothorax, left Primary lung cancer 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 Home Medications ?Medication ?Instructions ?Recorded ?Last Taken ?Type Handicap Placard #1 ea 07/30/23 Unknown Rx levothyroxine 150 mcg tablet 150 mcg PO QDAY thyroid # 90 tabs 09/01/24 Unknown Rx atorvastatin 40 mg tablet 40 mg PO QHS cholesterol Unknown History hydrocortisone 5 mg tablet 5 mg PO 1300 adrenal gland 10/25/24 Unknown History hydrocortisone 5 mg tablet 10 mg PO .am adrenal gland 10/25/24 Unknown History apixaban 5 mg tablet (Eliquis) 5 mg PO BID 30 days #60 tabs 10/27/24 Unknown Rx diltiazem HCl 180 mg 180 mg PO Q12 30 days #60 ca ps 10/27/24 Unknown Rx capsule,extended release 24 hr furosemide 20 mg tablet (Lasix) 20 mg PO DAILY 1 month #30 tabs 10/27/24 Unknown Rx metoprolol succinate 50 mg 50 mg PO DAILY 30 days #0 t abs 10/27/24 Unknown Rx tablet,extended release 24 hr potassium chloride 20 mEq 20 meq PO DAILYCM 30 days #3 0 tabs 10/27/24 Unknown Rx tablet,extended release(part/cryst) MAGIC MOUTH WASH (BMX) 180 mL 10 ml PO Q4H PRN #180 mL 11/09/24 Unknown Rx suspension mirtazapine 15 mg tablet 15 mg PO QDAY 11/09/24 Unkno wn History nystatin 100,000 unit/mL oral 1 ml PO QDAY 11/09/24 Un known History suspension Allergy/AdvReac Type Severity Reaction Status Date / Time No Known Allergies Allergy Verified 11/30/24 08:43 Family History Uncle Cancer Mother CVA (cerebral vascular accident) Surgical History Hx of colonoscopy History of vascular access device History of left heart catheterization (04/29/21) Hx of lymph node biopsy History of tonsillectomy and adenoidectomy History of wisdom tooth extraction Social History housing: house Smoking Status: Never smoker second hand exposure: No alcohol intake: never substance use type: does not use caffeine: Yes what type of physical activity do you participate in: none frequency: does not exercise ROS ROS ED ROS Narrative Constitutional: Negative for fever, chills, weight loss. Positive for weakness Eyes: Negative for vision loss, vision change, double vision ENT: Negative for any sore throat, ear pain, congestion Cardiovascular: Negative for any chest pain, tightness, palpitations Respiratory: Negative for any cough, sputum production, hemoptysis, dyspnea, dyspnea on exertion, orthopnea Gastrointestinal: Negative for any abdominal pain, nausea, vomiting, diarrhea, constipation, blood in stool, blood in vomit. Positive for decreased appetite : Negative for any urinary frequency, dysuria, retention, blood in urine Muscle skeletal: Negative for any neck pain, back pain Neurological: Negative for any headache, syncope, dizziness Skin: Negative for any rashes, itching, abrasions, lacerations Psychiatric: Negative for any depression, anxiety, stress, suicidal ideation, homicidal ideation Hematologic: Negative for any excessive bruising, easy bleeding EXAM Physical Exam Narrative Exam Narrative: Vital signs reviewed. HEET: Head normocephalic atraumatic, TMs clear bilaterally. Posterior pharynx is clear, dry mucous membranes. Nares clear bilaterally. Neck: Supple with no lymphadenopathy or tenderness. No signs of meningismus. Cardiac: Regular rate and rhythm no murmurs gallops or rubs, equal peripheral pulses bilaterally. Respiratory: Lungs clear to auscultation bilaterally. Diminished bilateral lower bases. No chest tenderness. Abdomen: Soft, nontender, nondistended. No abdominal bruit or pulsatile masses. No hepatosplenomegaly Extremities: No peripheral edema, no signs of gross trauma or deformity. Active full range of motion of all extremities. Neuro: Cranial nerves II through XII intact, no focal neurological deficits. NIH stroke scale 0 Skin: Clean dry and intact with no rash, purpura, petechiae, vesicles or pustules. Backs/flank: No CVA tenderness, no midline spinal tenderness, no deformity. Psych: Normal mood and affect. No SI, HI or acute psychosis. Const Vital Signs: 12/10/24 13:00 12/10/24 14:01 Temperature 96.9 F L 98.1 F Temperature Source Temporal Oral Pulse Rate 75 93 Respiratory Rate 18 18 Blood Pressure 92/59 L 118/78 Blood Pressure Mean 70 91 Pulse Ox 91 98 Oxygen Delivery Method Room Air Room Air [facility] Lab Data Labs: Laboratory Results - last 24 hr 12/10/24 12/10/24 13:59 14:30 WBC 14.2 H RBC 3.86 L Hgb 11.4 L Hct 34.2 L MCV 88.6 MCH 29.5 MCHC 33.3 RDW Std Deviation 44.1 H RDW Coeff of [place]ino 13.8 Plt Count 200 MPV 8.5 Immature Gran % (Auto) 0.500 Neut % (Auto) 86.8 H Lymph % (Auto) 4.6 L [place] % (Auto) 6.0 Eos % (Auto) 1.6 Baso % (Auto) 0.5 Absolute Neuts (auto) 12.3 H Absolute Lymphs (auto) 0.65 L Nucleated RBC % 0 Sodium 136 Potassium 3.6 Chloride Direct 101 Carbon Dioxide 25.3 Anion Gap 10 BUN 25 H Creatinine 0.85 Est GFR (MDRD) Non-Af 88 BUN/Creatinine Ratio 29.3 H Glucose 130 H Calcium 8.3 Total Bilirubin 0.58 AST 21 ALT 15 Alkaline Phosphatase 84 Troponin T High Sens 21 Total Protein 6.6 Albumin 3.1 L Globulin 3.6 Albumin/Globulin Ratio 0.9 Urine Color Yellow Urine Clarity Sl. Cloudy Urine pH 6.5 Ur Specific [place] 1.010 Urine Protein Negative Urine Glucose (UA) Normal Urine Ketones Negative Urine Occult Blood 10 H Urine Nitrite Negative Urine Bilirubin Negative Urine Urobilinogen Normal Ur Leukocyte Esterase 100 H Urine RBC 0-5 SEEN Urine WBC 5-10 SEEN Ur Squamous Epith Cells 0-5 SEEN Urine Bacteria 1+ Urine Mucus 0 SEEN Radiography Diagnostic Testing: Clinical Impression(s) from Imaging Studies Chest X-Ray 12/10/24 13:29 IMPRESSION: Right basilar opacity which may represent atelectasis, airspace disease, and/or pleural effusion. Reading Location: [facility] CT 12/10/24 14:12 IMPRESSION: 1. Hypodense region in the right parieto-occipital lobe concerning for acute to subacute ischemia. 2. Age-appropriate volume loss and remote small vessel ischemic change Findings communicated to Dr. Carloz Dugan on 12/10/2024 at 1440 hours Reading [facility] Normal sinus rhythm: Attestation: I personally reviewed and interpreted this EKG as follows: Interpretation: Sinus Rhythm Comments: EKG shows a normal sinus rhythm, rate of 66 bpm, IN interval 164 ms, QRS duration 102 ms, no acute ST elevation, no acute infarct noted. Treatment and Re-Evaluation :: Differential diagnosis includes however is not limited to: CVA, TIA, electrolyte abnormality, community-acquired pneumonia, brain mass, sequelae of metastatic cancer, dehydration, UTI, COVID-19 influenza RSV Patient is alert and orient x 4, patient does seem slightly weak looking. Patient does have dry mucous membranes. Presenting to the emergency department for not acting himself, not eating and drinking. Patient will receive a comp lete workup including laboratory values, CT scan the brain, chest x-ray. All radiologic examinations were read, reviewed by the emergency department attending. From these reads, a plan of care will be put in place. Patient will also have a cardiac workup, EKG, IV fluids. Urinalysis to be obtained to ensure there is no infectious process. Patient CBC shows slight leukocytosis with a white blood count of 14.2, stable anemia 11.4. Chemistries show a creatinine 0.8, glucose 130, patient's urinalysis is currently pending. Chest x-ray shows right basilar opacity which may represent atelectasis, airspace disease and/or pleural effusion, patient does have history of lung cancer is currently on immunotherapy. COVID-19 influenza RSV was negative. Patient CT scan of the brain shows a hypodense region in the right parietal occipital lobe concerning for acute to subacute ischemia. Age-appropriate volume loss. Secondary this finding, patient will need to be admitted to the hospital. I will reach out to the hospitalist. Discharge Plan Dx/Rx/DC Orders Clinical Impression: Weakness, Acute alteration in mental status, CVA (cerebrovascular accident) Disposition Disposition: Acute Care Hospital [facility]
[2024-12-10 14:01] VITALS: BP 118/78; PULSE 93; RESP 18; TEMP 36.7; O2SAT 98
[2024-12-10 14:11] LABS: Absolute Lymphocyte Count 0.65 X10^3/uL (0.83-4.51); Absolute Neutrophil Count 12.3 X10^3/uL (2.0-7.7); Basophil# 0.07 X10^3/uL; Basophil% 0.5 % (0-1); Eosinophil# 0.23 X10^3/uL; Eosinophils% 1.6 % (0-5); Hematocrit 34.2 % (40-54); Hemoglobin 11.4 g/dL (13.0-16.5); Lymphocyte # 0.65 X10^3/ul (0.83-4.51); Lymphocyte % 4.6 % (19-41); Mean Corp Hgb Conc 33.3 g/dL (32-36); Mean Corpuscular Hgb 29.5 pg (27.0-32.0); Mean Corpuscular Volume 88.6 fL (80-94); Mean Platelet Vol. 8.5 fl (6.2-12.0); Monocyte# 0.85 X10^3/uL; NRBC Flagged by Analyzer 0 % (0-5); Neutrophil # 12.29 X10^3/uL (2.7-7.7); Neutrophil % 86.8 % (47-70); Platelet Count 200 K/mm3 (150-450); RBC Distribution Width CV 13.8 % (11.6-14.6); RBC Distribution Width SD 44.1 fl (35.1-43.9); Red Blood Count 3.86 M/mm3 (4.6-6.2); White Blood Count 14.2 K/mm3 (4.4-11.0)
--- NOTE | 2024-12-10 14:12 | CT_ITS ---
EXAM: BRAIN/HEAD WITHOUT CONTRAST CLINICAL HISTORY: Weakness COMPARISON: 06/14/2024. TECHNIQUE: Noncontrast images of the head with multiplanar reconstructions. Dose reduction techniques were used including intermediate exposure control (AEC),iterative reconstruction technique, and/or mA and/or KV dose adjustments based on patient's size. FINDINGS: CT HEAD FINDINGS: There is a hypodense area in the right parieto-occipital lobe concerning for acute ischemia. No acute intracranial hemorrhage, mass, mass effect, midline shift or pathologic extra-axial fluid collection. No hydrocephalus. Age- appropriate cerebral volume and white matter. Visualized paranasal sinuses and mastoid air cells are clear. The calvarium is grossly intact. CT/Brain/Head without Contrast IMPRESSION: 1. Hypodense region in the right parieto-occipital lobe concerning for acute t o subacute ischemia. 2. Age-appropriate volume loss and remote small vessel ischemic change Findings communicated to Dr. Carloz Dugan on 12/10/2024 at 1440 hours Reading Location: [facility]
[2024-12-10] MEDS: 0.9% Normal Saline (1000mL) 1,000 ML 999 ML IV (14:22)
[2024-12-10 14:32] LABS: ALB/GLOB Ratio 0.9 RATIO (0.9-2.4); AST(SGOT) 21 U/L (<=37); Alanine Aminotransfer ALT/SGPT 15 U/L (<=46); Albumin, Serum 3.1 g/dL (3.4-4.8); Alkaline Phosphatase 84 U/L (40-129); Anion Gap 10 (5-15); BUN 25 mg/dL (4-19); BUN/Creat Ratio 29.3 RATIO (10-20); Calcium 8.3 mg/dL (7.6-11.0); Carbon Dioxide 25.3 mmol/L (22.0-29.0); Chloride 101 mmol/L (96-108); Creatinine, Serum 0.85 mg/dL (0.70-1.20); EST Glomerular Filtration Rate 88 (>60); Globulin 3.6 g/dL (2.2-4.2); Glucose 130 mg/dL (70-99); Potassium 3.6 mmol/L (3.3-5.1); Protein, Total 6.6 g/dL (5.9-8.4); Sodium Level 136 mmol/L (133-145); Total Bilirubin 0.58 mg/dL (0.00-1.30); Troponin T High Sensitivity 21 ng/L (<=22)
[2024-12-10 14:47] LABS: Mucous, Urine 0 SEEN /hpf (<or=2+)
[2024-12-10 14:59] LABS: Color, Urine Yellow (Yellow); Glucose, Dipstick Normal (Normal); Ketone-Dipstick Negative (Negative); Leukocyte Esterase-Dipstick 100 /ul (Negative); Nitrite-Dipstick Negative (Negative); Occult Blood-Urine 10 /ul (Negative); Protein-Dipstick Negative (Negative); Urine Bilirubin Dipstick Negative (Negative); Urine Clarity Sl. Cloudy (Clear); Urine Urobilinogen Normal (Normal); Urine pH 6.5 (5.0 - 8.0)
[2024-12-10 15:00] VITALS: BP 142/62; PULSE 70; RESP 16; O2SAT 94
[2024-12-10 15:04] LABS: Bacteria 1+ /hpf (None Seen); Red Blood Cells-Urine 0-5 SEEN /hpf (0-5); Squamous Epithelial Cells - UA 0-5 SEEN /hpf (0-5); White Blood Cells 5-10 SEEN /hpf (0-5)
--- NOTE | 2024-12-10 15:55 | PCM.HP.STD ---
HPI - General General Date of Admission: 12/10/24 Date of Service: 12/10/24 Chief Complaint: Decreased oral intake HPI Narrative RAJAN ROSEN, is a 79 M who presents with decreased oral intake over the past few days. Daughter comes in from [place] was concerned and brought him to the hospital. Patient underwent a workup that had a head CT that showed a hypodense region in the right parietal occipital lobe concerning for acute to subacute ischemia. Patient has a history of A-fib and has his medications but in pillboxes that he thinks he is taking appropriately despite not eating and drinking. He denies any trouble speaking, understanding or any kind of weakness. Denies any visual changes. [facility] Medical History Constipation Encounter for antineoplastic immunotherapy Atrial fibrillation with RVR Wears glasses History of steroid therapy High cholesterol Gastric reflux Non-smoker Shortness of breath on exertion History of edema History of echocardiogram History of rheumatic fever Hypertension Cardiology follow-up encounter Dehydration Adrenal insufficiency Weakness Elevated bilirubin Hyponatremia Imbalance Nausea Thrombocytopenia Pleural effusion, bilateral Stomatitis Drug induced neutropenia Impaired glucose tolerance Encounter for chemotherapy management Edema of extremities Atherosclerotic heart disease of [place] coronary artery without angina pectoris Bilateral lower leg cellulitis Nonrheumatic aortic (valve) stenosis Obesity Elevated liver enzymes Essential (primary) hypertension Chemotherapy management, encounter for Bacteremia (12/21/19) Rash Hoarseness of voice Encounter for adjustment and management of vascular access device Immunotherapy encounter Anemia Localized swelling, mass and lump, neck Encounter for education Hypothyroidism HLD (hyperlipidemia) Non-small cell carcinoma of lung Pneumothorax, left Primary lung cancer 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 Home Medications ?Medication ?Instructions ?Recorded ?Last Taken ?Type Handicap Placard #1 ea 07/30/23 Unknown Rx levothyroxine 150 mcg tablet 150 mcg PO QDAY thyroid #90 tabs 09/01/24 Unknown Rx atorvastatin 40 mg tablet 40 mg PO QHS cholesterol 10/25/24 Unknown History hydrocortisone 5 mg tablet 5 mg PO 1300 adrenal gland 10/25/24 Unknown History hydrocortisone 5 mg tablet 10 mg PO .am adrenal gland 10/25/24 Unknown History apixaban 5 mg tablet (Eliquis) 5 mg PO BID 30 days #60 tabs 10/27/24 Unknown Rx diltiazem HCl 180 mg 180 mg PO Q12 30 days #60 caps 10/27/24 Unknown Rx capsule,extended release 24 hr furosemide 20 mg tablet (Lasix) 20 mg PO DAILY 1 month #30 tabs 10/27/24 Unknown Rx metoprolol succinate 50 mg 50 mg PO DAILY 30 days #0 tabs 10/27/24 Unknown Rx tablet,extended release 24 hr potassium chloride 20 mEq 20 meq PO DAILYCM 30 days #30 tabs 10/27/24 Unknown Rx tablet,extended release(part/cryst) MAGIC MOUTH WASH (BMX) 180 mL 10 ml PO Q4H PRN #180 mL 11/09/24 Unknown Rx suspension mirtazapine 15 mg tablet 15 mg PO QDAY 11/09/24 Unknown History nystatin 100,000 unit/mL oral 1 ml PO QDAY 11/09/24 Unknown History suspension Allergy/AdvReac Type Severity Reaction Status Date / Time No Known Allergies Allergy Verified 11/30/24 08:43 Family History Uncle Cancer Mother CVA (cerebral vascular accident) Surgical History Hx of colonoscopy History of vascular access device History of left heart catheterization (04/29/21) Hx of lymph node biopsy History of tonsillectomy and adenoidectomy History of wisdom tooth extraction Social History housing: house Smoking Status: Never smoker second hand exposure: No alcohol intake: never substance use type: does not use caffeine: Yes what type of physical activity do you participate in: none frequency: does not exercise ROS ROS Narrative Dry mouth which he uses Biotene for. Has been ongoing issue for some time. His lips are chapped as well. All review of systems were negative except as mentioned above in the history of present illness and the other review of systems. Vital Signs Vital Signs Vital Signs: 12/10/24 13:00 12/10/24 14:01 12/10/24 15:00 Temperature 36.1 C L 36.7 C Temperature Source Temporal Oral Pulse Rate 75 93 70 Respiratory Rate 18 18 16 Blood Pressure 92/59 L 118/78 142/62 H Blood Pressure Mean 70 91 88 Pulse Ox 91 98 94 Oxygen Delivery Method Room Air Room Air Weight Weight: 74.1 kg Body Mass Index (BMI) 26.4 Physical Exam Narrative - Physical Exam General: Alert, Oriented x3, Cooperative HEENT: Atraumatic, PERRLA, EOMI, Normocephalic Oral: Dry mucosa. Undulating texture of the tongue., No Gingival or Mucosal Lesions/ Ulcerations Neck: Supple, No JVD, Negative Carotid Bruits Lungs: Clear to auscultation, Normal air movement Cardiovascular: Regular rate, Normal S1, Normal S2, No murmurs Abdomen: Bowel Sounds Present, Soft, Non Tender, Non-Distended, No Hepato-splenomegaly Extremities: No clubbing, No cyanosis, No edema, Capillary Refill Less than 3 Seconds Skin: No rashes, No breakdown Musculoskeletal: No Tenderness to Palpation of Joints or Extremities Neurological: Cranial nerves II through XII grossly intact. Muscle strength 5-5 in upper extremities and right lower extremity. 4 out of 5 with some subtle drift in the left lower extremity. Visual villavicencio were assessed and patient had deficits in the left lower quadrant. Psych/Mental Status: Normal Affect, Appropriate Results Lab / Micro Data Attestation: I reviewed the patient's lab results. 12/10/24 13:59 12/10/24 13:59 Labs: Laboratory Results - last 24 hr 12/10/24 13:59: WBC 14.2 H, RBC 3.86 L, Hgb 11.4 L, Hct 34.2 L, MCV 88.6, MCH 29.5, MCHC 33.3, RDW Std Deviation 44.1 H, RDW Coeff of [place] 13.8, Plt Count 200, MPV 8.5, Immature Gran % (Auto) 0.500, Neut % (Auto) 86.8 H, Lymph % (Auto) 4.6 L, [place] % (Auto) 6.0, Eos % (Auto) 1.6, Baso % (Auto) 0.5, Absolute Neuts (auto) 12.3 H, Absolute Lymphs (auto) 0.65 L, Nucleated RBC % 0, Sodium 136, Potassium 3.6, Chloride Direct 101, Carbon Dioxide 25.3, Anion Gap 10, BUN 25 H, Creatinine 0.85, Est GFR (MDRD) Non-Af 88, BUN/Creatinine Ratio 29.3 H, Glucose 130 H, Calcium 8.3, Total Bilirubin 0.58, AST 21, ALT 15, Alkaline Phosphatase 84, Troponin T High Sens 21, Total Protein 6.6, Albumin 3.1 L, Globulin 3.6, Albumin/Globulin Ratio 0.9 12/10/24 14:30: Urine Color Yellow, Urine Clarity Sl. Cloudy, Urine pH 6.5, Ur Specific [place] 1.010, Urine Protein Negative, Urine Glucose (UA) Normal, Urine Ketones Negative, Urine Occult Blood 10 H, Urine Nitrite Negative, Urine Bilirubin Negative, Urine Urobilinogen Normal, Ur Leukocyte Esterase 100 H, Urine RBC 0-5 SEEN, Urine WBC 5-10 SEEN, Ur Squamous Epith Cells 0-5 SEEN, Urine Bacteria 1+, Urine Mucus 0 SEEN Micro: Microbiology 12/10/24 13:59 Mucosa - Nose SARS-CoV-2, Influenza & RSV (PCR) - Final EKG Initial EKG: Attestation: I personally reviewed and interpreted this EKG as follows: Prior EKG tracings: available for review EKG Rhythm Intrepretation: Sinus Rhythm Imaging Radiology Impression Chest X-Ray 12/10/24 13:29 IMPRESSION: Right basilar opacity which may represent atelectasis, airspace disease, and/or pleural effusion. Reading Location: [facility] CT 12/10/24 14:12 IMPRESSION: 1. Hypodense region in the right parieto-occipital lobe concerning for acute to subacute ischemia. 2. Age-appropriate volume loss and remote small vessel ischemic change Findings communicated to Dr. Carloz Dugan on 12/10/2024 at 1440 hours Reading Location: [facility] Assessment & Plan Assessment/Plan (1) CVA (cerebrovascular accident): PLAN: Onset suspected be days ago as his really only presenting symptoms was not eating and drinking very much. Patient was outside the window for TNK and not a candidate anyways because he is already on apixaban. He denied any symptoms though he was found that he had some subtle weakness in his left lower extremity and left visual field deficits. CAT scan showed hypodense region in the right parieto-occipital lobe concerning for acute to subacute ischemia. Patient takes apixaban for A-fib which he believes he is compliant with but it is cannot be 100% verified at this time. Daughter states that they (she and her family) but the medication and medication dispenser that they believe the patient has been compliant with. Nonetheless, patient will need additional stroke workup with an MRI of the brain, MRA of the head and neck, echo, lipid panel, physical and Occupational Therapy evaluation. Neurology consultation can be deferred until Thursday when the test will be completed at that time (I placed a consult). PLAN: Plan Chronic additions Dry mouth: Patient takes Biotene for this. Unclear as to why he has. Will check TSH, B12 or folate. Continue the Biotene as needed. Proximal atrial fibrillation: Currently he is in normal sinus rhythm. Continue with apixaban and diltiazem and metoprolol succinate. Adrenal insufficiency: Continue with hydrocortisone. VTE prophylaxis: Not indicated as patient already anticoagulated. CODE STATUS: Addressed with the patient. Patient wishes to be full code. Case discussed with the patient's daughter at bedside. Charges/Coding Visit Charges Inpatient E&M: 15531 Init Hosp L3
[2024-12-10 15:57] VITALS: BP 118/78; PULSE 78; RESP 18; TEMP 36.8; O2SAT 97
--- NOTE | 2024-12-10 16:07 | ECHOL_ITS ---
Reason For Study Reason For Study: TIA/CVA Procedure This was a limited 2D transthoracic echocardiogram. Exam performed portable in patient room. Left Ventricle Normal size and thickness. Inferior hypokinesis. Estimated LVEF 55 to 60%. Right Ventricle Normal right ventricle. Atria The left and right atria are normal. Bubble contrast study is negative for PFO/ASD. Mitral Valve Severe mitral annular calcification. Tricuspid Valve Normal tricuspid valve. Aortic Valve The aortic valve is not well visualized. Pulmonic Valve The pulmonic valve is not well visualized. Great Vessels The aortic root is not well visualized. Pericardium/Pleural No pericardial effusion. Medication Performed a rapid injection of agitated mix of 9 cc saline and 1cc air to assess for atrial septal defect. MMode/2D Measurements & Calculations LAV(MOD-bp): 26.4 ml SV(MOD-sp4): 28.0 ml LVAd ap4: 22.2 cm2 LAV(MOD-bp) Indexed: 15.1 ml/m2 LVLd ap4: 7.4 cm SI(MOD-sp4): 16.0 ml/m2 LAV(MOD-sp2): 25.3 ml EDV(MOD-sp4): 59.0 ml LAV(MOD-sp4): 24.9 ml EDV(sp4-el): 56.3 ml LVAs ap4: 14.8 cm2 LVLs ap4: 6.5 cm ESV(MOD-sp4): 31.0 ml ESV(sp4-el): 28.9 ml EF(MOD-sp4): 47.4 % EF(sp4-el): 48.6 % SV(sp4-el): 27.4 ml LA A4 area: 11.7 cm2 RA A4 area: 9.4 cm2 ECHO/Echo, Limited Study Interpretation Summary Inferior hypokinesis. Estimated LVEF 55 to 60%. Bubble contrast study is negative for PFO/ASD. Severe mitral annular calcification. Ordering Physician: Felton Brown Referring Physician: Lisandro Zaldivar MD Performed By: Coco Rodrigues RCS
[2024-12-10 16:20] VITALS: BP 154/74; PULSE 70; RESP 18; TEMP 36.8; O2SAT 100
[2024-12-10 16:28] VITALS: BMI 23.6
[2024-12-10] MEDS: Aspirin 325 MG Tablet PO (16:50)
[2024-12-10] MEDS: 0.9% Normal Saline (1000mL) 1,000 ML 150 ML IV (16:55)
[2024-12-10] MEDS: 0.9% Saline Lock 10 ML Syringe IV (16:55)
[2024-12-10 17:46] VITALS: BMI 23.6
[2024-12-10 20:20] VITALS: BP 116/58; PULSE 65; RESP 18; TEMP 36.9; O2SAT 100
[2024-12-10] MEDS: Mirtazapine 15 MG Tablet PO (21:07)
[2024-12-10] MEDS: APIXABAN 5 MG TABLET PO (21:07)
[2024-12-10] MEDS: Atorvastatin Calcium 40 MG Tablet PO (21:07)
[2024-12-11] VITALS (16 sets, daily range): BP systolic 70–166; BP diastolic 52–69; PULSE 63–145; RESP 16–21; TEMP 36.7–37.1; O2SAT 92–100; BMI 23.6
[2024-12-11] MEDS: Levothyroxine 150 MCG Tablet PO (05:56)
[2024-12-11] MEDS: Metoprolol(XL)Succ 50 MG Tablet PO ×2 (05:56→21:45)
--- NOTE | 2024-12-11 06:18 | EKG12_ITS ---
Test Reason : AFIB RVR Blood Pressure : */* mmHG Vent. Rate : 140 BPM Atrial Rate : * BPM P-R Int : * ms QRS Dur : 104 ms QT Int : 330 ms P-R-T Axes : * 24 140 degrees QTcB Int : 503 ms Critical Test Result: High HR Atrial fibrillation with rapid ventricular response Low voltage QRS ST depression, consider subendocardial injury Nonspecific T wave abnormality Abnormal ECG When compared with ECG of 10-Dec-2024 13:47, MANUAL COMPARISON REQUIRED DATA IS UNCONFIRMED Confirmed by Sumit Morfin ([id number]), newspaper copy editor RU COOK ([id number]) on 12/12/2024 9:46:30 AM Referred By: Confirmed By: Sumit Morfin
[2024-12-11 06:23] LABS: Absolute Lymphocyte Count 1.35 X10^3/uL (0.83-4.51); Absolute Neutrophil Count 9.1 X10^3/uL (2.0-7.7); Basophil# 0.06 X10^3/uL; Basophil% 0.5 % (0-1); Eosinophil# 0.35 X10^3/uL; Hematocrit 35.6 % (40-54); Hemoglobin 11.5 g/dL (13.0-16.5); Lymphocyte # 1.35 X10^3/ul (0.83-4.51); Lymphocyte % 11.5 % (19-41); Mean Corp Hgb Conc 32.3 g/dL (32-36); Mean Corpuscular Hgb 28.8 pg (27.0-32.0); Mean Corpuscular Volume 89.2 fL (80-94); Monocyte% 6.8 % (0-10); NRBC Flagged by Analyzer 0 % (0-5); Neutrophil # 9.09 X10^3/uL (2.7-7.7); Neutrophil % 77.6 % (47-70); Platelet Count 210 K/mm3 (150-450); RBC Distribution Width CV 13.7 % (11.6-14.6); RBC Distribution Width SD 44.9 fl (35.1-43.9); Red Blood Count 3.99 M/mm3 (4.6-6.2); White Blood Count 11.7 K/mm3 (4.4-11.0)
[2024-12-11 07:12] LABS: Anion Gap 10 (5-15); BUN 17 mg/dL (4-19); BUN/Creat Ratio 22.6 RATIO (10-20); Calcium 8.4 mg/dL (7.6-11.0); Carbon Dioxide 24.9 mmol/L (22.0-29.0); Chloride 103 mmol/L (96-108); Creatinine, Serum 0.76 mg/dL (0.70-1.20); EST Glomerular Filtration Rate 92 (>60); Estimated Creatinine Clearance 67.57 ml/min (50-250); Glucose 93 mg/dL (70-99); Potassium 3.7 mmol/L (3.3-5.1); Sodium Level 138 mmol/L (133-145)
[2024-12-11 07:28] LABS: Cholesterol 143 mg/dL (<=200); High Density Lipoprotein 38 mg/dL; Low Density Lipoprotein Calc. 89 mg/dL; Triglycerides 79 mg/dL; Very Low Density Lipoprotein 16 mg/dL (5-40); cholesterol:hdl ratio screen 3.74
[2024-12-11] MEDS: Diltiazem 125 MG in Dextrose 5%-Water (100mL Bag) 100 ML IV (07:30)
[2024-12-11 07:40] LABS: Vitamin B12 2778 pg/mL (180-914)
[2024-12-11] MEDS: 0.9% Saline Lock 10 ML Syringe IV ×2 (07:48→11:17)
[2024-12-11] MEDS: 0.9% Normal Saline (1000mL) 1,000 ML 999 ML IV (08:30)
--- NOTE | 2024-12-11 09:00 | MRI_ITS ---
PROCEDURE: MRA HEAD ONLY WITHOUT CONTRAST REASON FOR EXAM: CVA COMPARISON: None. TECHNIQUE: 3D Time of Flight MRA of the head without intravenous contrast. 3D reformatted images. FINDINGS: Anatomy: [place] anatomy is within normal limits. Anterior Circulation: The cavernous right internal carotid artery and right middle cerebral arteries are narrowed when compared to the left. All other arteries in the head are patent. Posterior Circulation: Distal vertebral arteries the basilar artery and the posterior cerebral arteries appear patent without high grade stenosis. No large aneurysms are identified. MRI/MRA Head ONLY without Contrast IMPRESSION: Significant narrowing of the cavernous right internal carotid artery and right middle cerebral artery. Reading Location: [facility]
--- NOTE | 2024-12-11 09:00 | MRI_ITS ---
PROCEDURE: MRA NECK WITHOUT CONTRAST REASON FOR EXAM: CVA TECHNIQUE: Neck MRA using 2D and 3D Time of Flight technique and with intravenous gadolinium-based contrast. CONTRAST: COMPARISON: None. FINDINGS: Flow: 2D Time of Flight images demonstrate antegrade carotid and vertebral artery flow. Carotids: No evidence of significant stenosis on time of flight or postcontrast images. Right ICA stenosis (NASCET): 0-49 % Left ICA stenosis (NASCET): 0-49 % Vertebrals: Codominant without evidence of high grade stenosis. Arch: No significant stenosis identified at the arch vessel origins, brachiocephalic or proximal subclavian arteries. MRI/MRA Neck without Contrast IMPRESSION: No hemodynamically significant stenosis in the arteries of the neck. Reading Location: [facility]
--- NOTE | 2024-12-11 09:00 | MRI_ITS ---
EXAM: BRAIN WITHOUT CONTRAST CLINICAL HISTORY: CVA COMPARISON: None. TECHNIQUE: PROCEDURE: Multiplanar sequences of the brain were obtained on a 1.5 Petra MRI system, including T1, T2, FLAIR, DWI, and ADC. No intravenous contrast was administered. FINDINGS: MRI BRAIN: No intraparenchymal hemorrhage is evident. Large area of diffusion restriction is noted in the mid and posterior right temporal lobes. T2 hyperintensity with FLAIR and diffusion-weighted imaging hypointensity is noted in the left basal ganglia consistent with old infarct. There is no extra-axial fluid collection, mass effect, or shift of midline structures. The basal cisterns are visualized. The ventricles and cortical sulci are in proportion and consistent with the patient's age. There is no signal abnormality in the brar matter. There are scattered foci of T2/FLAIR hyperintensities in the supratentorial deep white matter that are nonspecific but most likely related to chronic small vessels ischemic changes and appears out of proportion for patient's age. The midline structures demonstrate normal contours. The craniocervical junction is unremarkable. The flow voids of the large intracranial vessels are normal. The calvarium is unremarkable. The paranasal sinuses and mastoid air cells are clear. MRI/Brain without Contrast IMPRESSION: 1. Acute ischemia in the mid and posterior right temporal lobes. 2. Age-appropriate volume loss and remote small vessel ischemic changes 3. Remote left basal ganglia lacunar infarct Reading Location: [facility]
[2024-12-11] MEDS: Acetaminophen 325 MG Tablet 650 MG PO (09:34)
[2024-12-11] MEDS: Aspirin 81 MG TAB.CHEW PO (11:18)
[2024-12-11] MEDS: Furosemide 20 MG Tablet PO (11:18)
[2024-12-11] MEDS: APIXABAN 5 MG TABLET PO ×2 (11:18→21:45)
[2024-12-11] MEDS: Hydrocortisone 10 MG Tablet GT (11:18)
--- NOTE | 2024-12-11 11:37 | EKG12_ITS ---
Test Reason : CHANGE Blood Pressure : */* mmHG Vent. Rate : 72 BPM Atrial Rate : 72 BPM P-R Int : 172 ms QRS Dur : 102 ms QT Int : 460 ms P-R-T Axes : 12 -8 77 degrees QTcB Int : 503 ms Normal sinus rhythm Normal ECG When compared with ECG of 11-Dec-2024 06:39, MANUAL COMPARISON REQUIRED DATA IS UNCONFIRMED Confirmed by Sumit Morfin ([id number]), map editor RU COOK ([id number]) on 12/12/2024 9:45:46 AM Referred By: Confirmed By: Sumit Morfin
[2024-12-11] MEDS: Ensure Plus High Protein 120 ML LIQUID PO ×2 (12:48→17:18)
[2024-12-11] MEDS: Hydrocortisone 10 MG Tablet 5 MG PO (12:49)
--- NOTE | 2024-12-11 13:46 | NEURO.CONS ---
Assessment and Plan: Neuro Assessment/Plan 79 y/o man with h/o lung cancer on treatment, Afib on eliquis p/w decrease in PO intake and then noticed to have left sided weakness by daughter. CT Head- right parietal-occipital stroke. After talking to daughter, there seems to be a concern for medication compliant. Denies headache, nausea/vomiting, diarrhea/constipation. MRI brain - right mid and posterior temporal stroke. MRA head and neck - Significant narrowing of the cavernous right internal carotid artery and right middle cerebral artery. Today, patient reports feeling better. Discussed with daughter at bedside. Diagnosis: Right parietal-occipital stroke Plan: Continue ASA along with eliquis and statin. Check A1c, LDL. OT/PT/METAL DRILL PRESS OPERATOR. Control of vascular risk factors. Sign off for now. Please call with questions. I personally attended this patient and spent a total time of 50 minutes evaluating this patient including clinical assessment, review of chart, medical history imaging, and determining appropriate treatment and workup. HPI Consult Data Date of Consult: 12/11/24 HPI Narrative HPI Narrative: 79 y/o man with h/o lung cancer on treatment, Afib on eliquis p/w decrease in PO intake and then noticed to have left sided weakness by daughter. CT Head- right parietal-occipital stroke. After talking to daughter, there seems to be a concern for medication compliant. Denies headache, nausea/vomiting, diarrhea/constipation. Today, patient reports feeling better. Discussed with daughter at bedside. [facility] Medical History Constipation Encounter for antineoplastic immunotherapy Atrial fibrillation with RVR Wears glasses History of steroid therapy High cholesterol Gastric reflux Non-smoker Shortness of breath on exertion History of edema History of echocardiogram History of rheumatic fever Hypertension Cardiology follow-up encounter Dehydration Adrenal insufficiency Weakness Elevated bilirubin Hyponatremia Imbalance Nausea Thrombocytopenia Pleural effusion, bilateral Stomatitis Drug induced neutropenia Impaired glucose tolerance Encounter for chemotherapy management Edema of extremities Atherosclerotic heart disease of [place] coronary artery without angina pectoris Bilateral lower leg cellulitis Nonrheumatic aortic (valve) stenosis Obesity Elevated liver enzymes Essential (primary) hypertension Chemotherapy management, encounter for Bacteremia (12/21/19) Rash Hoarseness of voice Encounter for adjustment and management of vascular access device Immunotherapy encounter Anemia Localized swelling, mass and lump, neck Encounter for education Hypothyroidism HLD (hyperlipidemia) Non-small cell carcinoma of lung Pneumothorax, left Primary lung cancer 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 Home Medications ?Medication ?Instructions ?Recorded ?Last Taken ?Type Handicap Placard #1 ea 07/30/23 Unknown Rx levothyroxine 150 mcg tablet 150 mcg PO QDAY thyroid #90 tabs 09/01/24 Unknown Rx atorvastatin 40 mg tablet 40 mg PO QHS cholesterol 10/25/24 Unknown History hydrocortisone 5 mg tablet 5 mg PO 1300 adrenal gland 10/25/24 Unknown History hydrocortisone 5 mg tablet 10 mg PO .am adrenal gland 10/25/24 Unknown History apixaban 5 mg tablet (Eliquis) 5 mg PO BID 30 days #60 tabs 10/27/24 Unknown Rx furosemide 20 mg tablet (Lasix) 20 mg PO DAILY 1 month #30 tabs 10/27/24 Unknown Rx metoprolol succinate 50 mg 50 mg PO DAILY 30 days #0 tabs 10/27/24 Unknown Rx tablet,extended release 24 hr mirtazapine 15 mg tablet 7.5 mg PO QHS Mood 11/09/24 Unknown History Allergy/AdvReac Type Severity Reaction Status Date / Time No Known Allergies Allergy Verified 11/30/24 08:43 Family History Uncle Cancer Mother CVA (cerebral vascular accident) Surgical History Hx of colonoscopy History of vascular access device History of left heart catheterization (04/29/21) Hx of lymph node biopsy History of tonsillectomy and adenoidectomy History of wisdom tooth extraction Social History housing: house Smoking Status: Never smoker second hand exposure: No alcohol intake: never substance use type: does not use caffeine: Yes what type of physical activity do you participate in: none frequency: does not exercise Vital Signs Vital Signs Vital Signs: 12/10/24 14:01 12/10/24 15:00 12/10/24 15:57 Temperature 98.1 F 98.2 F Temperature Source Oral Pulse Rate 93 70 78 Pulse Strength Respiratory Rate 18 16 18 Respiratory Effort Respiratory Depth Respiratory Pattern Blood Pressure 118/78 142/62 H 118/78 Blood Pressure Mean 91 88 91 Blood Pressure Source Blood Pressure Position Blood Pressure Location Pulse Ox 98 94 97 Oxygen Delivery Method Room Air 12/10/24 16:20 12/10/24 17:00 12/10/24 20:20 Temperature 98.2 F 98.5 F Temperature Source Oral Oral Pulse Rate 70 65 Pulse Strength Respiratory Rate 18 18 Respiratory Effort Normal Non-Labored Respiratory Depth Normal Respiratory Pattern Normal Blood Pressure 154/74 H 116/58 L Blood Pressure Mean 100 77 Blood Pressure Source Monitor Monitor Blood Pressure Position Semi-Fowlers Semi-Fowlers Blood Pressure Location Right Arm Right Arm Pulse Ox 100 100 Oxygen Delivery Method Room Air Room Air Room Air 12/10/24 20:20 12/10/24 20:26 12/11/24 00:20 Temperature 98.4 F Temperature Source Oral Pulse Rate 63 Pulse Strength Normal (2+) Respiratory Rate 16 Respiratory Effort Respiratory Depth Respiratory Pattern Blood Pressure 153/63 H Blood Pressure Mean 93 Blood Pressure Source Monitor Blood Pressure Position Semi-Fowlers Blood Pressure Location Right Arm Pulse Ox 98 Oxygen Delivery Method Room Air Room Air 12/11/24 03:54 12/11/24 04:20 12/11/24 05:56 Temperature 98.8 F Temperature Source Oral Pulse Rate 70 145 H Pulse Strength Respiratory Rate 18 Respiratory Effort Respiratory Depth Respiratory Pattern Blood Pressure 166/69 H 158/65 H Blood Pressure Mean 101 Blood Pressure Source Monitor Blood Pressure Position Semi-Fowlers Blood Pressure Location Right Arm Pulse Ox 98 100 Oxygen Delivery Method Room Air Room Air 12/11/24 06:39 12/11/24 07:31 12/11/24 07:35 Temperature Temperature Source Pulse Rate 134 H 130 H Pulse Strength Respiratory Rate 18 21 H Respiratory Effort Respiratory Depth Respiratory Pattern Blood Pressure 70/53 L 73/59 L Blood Pressure Mean 58 63 Blood Pressure Source Monitor Monitor Blood Pressure Position Semi-Fowlers Semi-Fowlers Blood Pressure Location Right Arm Right Arm Pulse Ox 92 97 Oxygen Delivery Method Room Air Room Air Room Air 12/11/24 07:45 12/11/24 08:00 12/11/24 08:15 Temperature 98.3 F Temperature Source Oral Pulse Rate 132 H 123 H 123 H Pulse Strength Respiratory Rate 20 H 20 H 16 Respiratory Effort Respiratory Depth Respiratory Pattern Blood Pressure 77/52 L 85/55 L 70/52 L Blood Pressure Mean 60 65 58 Blood Pressure Source Monitor Monitor Monitor Blood Pressure Position Semi-Fowlers Semi-Fowlers Semi-Fowlers Blood Pressure Location Left Arm Left Arm Left Arm Pulse Ox 100 97 98 Oxygen Delivery Method Room Air Room Air Room Air 12/11/24 08:15 12/11/24 08:30 12/11/24 11:30 Temperature 98.3 F Temperature Source Oral Pulse Rate 123 H 131 H 75 Pulse Strength Respiratory Rate 16 16 16 Respiratory Effort Respiratory Depth Respiratory Pattern Blood Pressure 70/52 L 77/59 L 106/62 Blood Pressure Mean 58 65 76 Blood Pressure Source Monitor Monitor Monitor Blood Pressure Position Semi-Fowlers Semi-Fowlers Semi-Fowlers Blood Pressure Location Left Arm Left Arm Right Arm Pulse Ox 98 97 98 Oxygen Delivery Method Room Air Room Air Room Air Weight Weight: 66.542 kg Body Mass Index (BMI) 23.6 EEG Results Procedure Details EEG Procedure Details: RAJAN ROSEN is a 79 year old M with a past medical history of , who presents for evaluation of Electroencephalogram on DATE at TIME NIHSS NIHSS Nursing Documentation NIHSS Nursing Documentation: NIHSS: Ischemic Stroke/TIA Start: 12/10/24 16:07 Text: For PCU Patients: NIH and Neuro Check every 4 Status: Active hours, PRN and with change in RN caregiver. Freq: [id number] Protocol: Activity Type Activity Date Activity User E-sign Co-sign Detail Recorded Client Recorded Date Recorded By Document 12/11/24 11:30 HS desktop 12/11/24 11:36 12/11/24 11:30 NIH Stroke Scale [NIHSS] A score of 0 is normal or asymptomatic . Total possible score is 42. Inpatient: RN or Physician to activate a stroke alert for onset of new stroke symptoms or with NIHSS increase >/= 3 points. Following change in neurological status, NIHSS will be performed per physician order or more frequently PRN. -1a. Level of Consciousness Alert; keenly responsive -1b. LOC Questions Answers BOTH questions correctly. -1c. LOC Commands Performs both tasks correctly . -2. Best Gaze Normal -3. Visual No visual loss -4. Facial Palsy Normal symmetrical movements -5a. Left Arm No drift; arm holds 90 (or 45 ) degrees for full 10 seconds -5b. Right Arm No drift; arm holds 90 (or 45 ) degrees for full 10 seconds -6a. Left Leg No drift; leg holds 30-degree position for full 5 seconds -6b. Right Leg No drift; leg holds 30-degree position for full 5 seconds -7. Limb Ataxia Absent -8. Sensory Normal; no sensory loss -9. Best Language Mild-to- moderate aphasia; -10. Dysarthria Mild-to- moderate dysarthria; -11. Extinction and Inattention No abnormality -Total 2 Query Text:A score of 0 is normal or asymptomatic. Total possible score is 42 . ED: Notify Physician for NIHSS increase by > / = 3 points. Inpatient: RN or Physician to activate a stroke alert for NIHSS increase of > / = 3 points. Coma Scale [Assess] -Eye Opening Spontaneous -Motor Obeys Commands -Verbal Oriented [Total] -Coma Scale Total 15 NIHSS 1a. Level of Consciousness: Alert; keenly responsive 1b. LOC Questions: Answers BOTH questions correctly. 1c. LOC Commands: Performs both tasks correctly. 2. Best Gaze: Normal 3. Visual: No visual loss 4. Facial Palsy: Minor paralysis (flattened nasolabial fold, asymmetry on smiling) 5a. Left Arm: No drift; arm holds 90 (or 45) degrees for full 10 seconds 5b. Right Arm: No drift; arm holds 90 (or 45) degrees for full 10 seconds 6a. Left Leg: No drift; leg holds 30-degree position for full 5 seconds 6b. Right Leg: No drift; leg holds 30-degree position for full 5 seconds 7. Limb Ataxia: Absent 8. Sensory: [id number] sensory loss; 9. Best Language: No aphasia; normal 10. Dysarthria: Normal 11. Extinction and Inattention: No abnormality Total: 2 Physical Exam Narrative General: The patient appears nutritionally appropriate, well-groomed, and appears comfortable in no acute distress. Mental Status:? The patient?s mental status was normal including orientation.? Language was intact.? Cranial nerves:? Visual villavicencio full, and extra-ocular motion was intact. Mild left facial droop. Motor: Normal strength in all extremities. Sensation: Decreease sensation in left side.? Coordination:? Bilateral finger to nose was normal.? There was no dysmetria. Gait:? deferred. Lab / Micro Data 12/11/24 05:19 12/11/24 05:19 Labs: Laboratory Results - last 24 hr 12/10/24 13:59: WBC 14.2 H, RBC 3.86 L, Hgb 11.4 L, Hct 34.2 L, MCV 88.6, MCH 29.5, MCHC 33.3, RDW Std Deviation 44.1 H, RDW Coeff of Gino 13.8, Plt Count 200, MPV 8.5, Immature Gran % (Auto) 0.500, Neut % (Auto) 86.8 H, Lymph % (Auto) 4.6 L, Wheeler % (Auto) 6.0, Eos % (Auto) 1.6, Baso % (Auto) 0.5, Absolute Neuts (auto) 12.3 H, Absolute Lymphs (auto) 0.65 L, Nucleated RBC % 0, Sodium 136, Potassium 3.6, Chloride Direct 101, Carbon Dioxide 25.3, Anion Gap 10, BUN 25 H, Creatinine 0.85, Est GFR (MDRD) Non-Af 88, BUN/Creatinine Ratio 29.3 H, Glucose 130 H, Calcium 8.3, Total Bilirubin 0.58, AST 21, ALT 15, Alkaline Phosphatase 84, Troponin T High Sens 21, Total Protein 6.6, Albumin 3.1 L, Globulin 3.6, Albumin/Globulin Ratio 0.9 12/10/24 14:30: Urine Color Yellow, Urine Clarity Sl. Cloudy, Urine pH 6.5, Ur Specific [place] 1.010, Urine Protein Negative, Urine Glucose (UA) Normal, Urine Ketones Negative, Urine Occult Blood 10 H, Urine Nitrite Negative, Urine Bilirubin Negative, Urine Urobilinogen Normal, Ur Leukocyte Esterase 100 H, Urine RBC 0-5 SEEN, Urine WBC 5-10 SEEN, Ur Squamous Epith Cells 0-5 SEEN, Urine Bacteria 1+, Urine Mucus 0 SEEN 12/11/24 05:19: WBC 11.7 H, RBC 3.99 L, Hgb 11.5 L, Hct 35.6 L, MCV 89.2, MCH 28.8, MCHC 32.3, RDW Std Deviation 44.9 H, RDW Coeff of Gino 13.7, Plt Count 210, MPV 9.0, Immature Gran % (Auto) 0.600, Neut % (Auto) 77.6 H, Lymph % (Auto) 11.5 L, Wheeler % (Auto) 6.8, Eos % (Auto) 3.0, Baso % (Auto) 0.5, Absolute Neuts (auto) 9.1 H, Absolute Lymphs (auto) 1.35, Nucleated RBC % 0, Sodium 138, Potassium 3.7, Chloride Direct 103, Carbon Dioxide 24.9, Anion Gap 10, BUN 17, Creatinine 0.76, Estim Creat Clear Calc 67.57, Est GFR (MDRD) Non-Af 92, BUN/Creatinine Ratio 22.6 H, Glucose 93, Calcium 8.4, Triglycerides 79, Cholesterol 143, VLDL Cholesterol 16, HDL Cholesterol 38 L, Cholesterol/HDL Ratio 3.74, Vitamin B12 2778 H, TSH 3.150 Micro: Microbiology 12/10/24 14:30 Urine, Random Urine Culture - Preliminary Staphylococcus aureus 12/10/24 13:59 Mucosa - Nose SARS-CoV-2, Influenza & RSV (PCR) - Final Imaging Radiology Impression Chest X-Ray 12/10/24 13:29 IMPRESSION: Right basilar opacity which may represent atelectasis, airspace disease, and/or pleural effusion. Reading Location: [facility] Brain CT 12/10/24 14:12 IMPRESSION: 1. Hypodense region in the right parieto-occipital lobe concerning for acute to subacute ischemia. 2. Age-appropriate volume loss and remote small vessel ischemic change Findings communicated to Dr. Carloz Dugan on 12/10/2024 at 1440 hours Reading Location: [facility] Brain MRI 12/11/24 09:00 IMPRESSION: 1. Acute ischemia in the mid and posterior right temporal lobes. 2. Age-appropriate volume loss and remote small vessel ischemic changes 3. Remote left basal ganglia lacunar infarct Reading Location: [facility] Head MRA 12/11/24 09:00 IMPRESSION: Significant narrowing of the cavernous right internal carotid artery and right middle cerebral artery. Reading Location: [facility] Neck MRA 12/11/24 09:00 IMPRESSION: No hemodynamically significant stenosis in the arteries of the neck. Reading Location: [facility] Active Medications Active Medications Active Medications: Current Medications Generic Name Dose Route Start Last Admin Trade Name Freq PRN Reason Stop Dose Admin Acetaminophen 650 mg 12/10/24 16:07 12/11/24 09:34 Acetaminophen 325 Mg Tablet PO 650 mg Q6H PRN PRN Administration Pain 1-10 Or Fever>100.7 Apixaban 5 mg 12/10/24 22:00 12/11/24 11:18 Apixaban 5 Mg Tablet PO 5 mg BID RAUL Administration Aspirin 81 mg 12/11/24 08:00 12/11/24 11:18 Aspirin 81 Mg Tab.Chew PO 81 mg BREAKFAST RAUL Administration Atorvastatin Calcium 40 mg 12/10/24 22:00 12/10/24 21:07 Atorvastatin Calcium 40 Mg Tablet PO 40 mg QHS RAUL Administration Furosemide 20 mg 12/11/24 10:00 12/11/24 11:18 Furosemide 20 Mg Tablet PO 20 mg DAILY RAUL Administration Protocol Hydralazine HCl 5 mg 12/10/24 16:07 Hydralazine 20 Mg/Ml Vial IV 12/11/24 16:08 Q30M PRN maintain BP parameters with HR <60 Hydrocortisone 10 mg 12/11/24 08:00 12/11/24 11:18 Hydrocortisone 10 Mg Tablet GT 10 mg 0800 RAUL Administration Hydrocortisone 5 mg 12/11/24 13:00 12/11/24 12:49 Hydrocortisone 10 Mg Tablet PO 5 mg 1300 RAUL Administration Sodium Chloride 100 mls @ 15 mls/hr 12/10/24 16:09 IV .Q6H40M PRN Saline Flush Sodium Chloride 100 mls @ 15 mls/hr 12/10/24 16:09 IV .Q6H40M PRN Additional IVPB Infusion Diltiazem HCl 125 mg/ Dextrose 125 mls @ 5 mls/hr 12/11/24 06:50 12/11/24 08:30 IV 0 mg/hr .Q25H RAUL 0 mls/hr Titration Protocol 5 MG/HR Labetalol HCl 10 - 20 mg 12/10/24 16:07 Labetalol 20mg/4ml Syringe IV 12/11/24 16:08 Q10M PRN PRN maintain BP parameters with HR >/=60 Levothyroxine Sodium 150 mcg 12/11/24 06:00 12/11/24 05:56 Levothyroxine 150 Mcg Tablet PO 150 mcg DAILY@0600 RAUL Administration Metoprolol Succinate 50 mg 12/11/24 22:00 Metoprolol(Xl)Succ 50 Mg Tablet PO BID [facility] Protocol Mirtazapine 15 mg 12/10/24 22:00 12/10/24 21:07 Mirtazapine 15 Mg Tablet PO 7.5 mg QHS RAUL Administration Nutritional Formula (Lactose Free) 120 ml 12/11/24 12:00 12/11/24 12:48 Ensure Plus High Protein 120 Ml Liquid PO 120 ml TIDCM RAUL Administration Ondansetron HCl 4 mg 12/10/24 16:07 Ondansetron 4 Mg/2 Ml Vial IV Q8H PRN PRN NAUSEA/VOMITING Saliva Substitute 15 ml 12/10/24 17:43 Saliva Substitute 237 Ml Bottle MUCOUS MEM 5X/DAY PRN DRY MOUTH Sodium Chloride 10 - 40 ml 12/10/24 16:09 12/11/24 11:17 0.9% Saline Lock 10 Ml Syringe IV 10 ml UD PRN Administration SALINE FLUSH
--- NOTE | 2024-12-11 14:53 | PCM.PN.HOSP ---
Subjective Subjective Seems to be doing okay. He is currently in A-fib. Has an NIH of fall 1-2 on my evaluation Objective Data Objective Data Vital Signs: Vital Signs Temp Pulse Resp BP Pulse Ox O2 Del Method 98.3 F 75 16 106/62 98 Room Air 12/11/24 08:15 12/11/24 11:30 12/11/24 11:30 12/11/24 11:30 12/11/24 11:30 12/11/24 11:30 Oxygen Delivery Method Room Air Weight: 146 lb 11.2 oz Body Mass Index (BMI) 23.6 Intake & Output: Intake and Output for Last 24 Hours 12/10/24 12/11/24 12/12/24 03:59 03:59 03:59 Intake Total 2280 / 2280 1061.24 / 1061.24 Balance 2280 / 2280 1061.24 / 1061.24 Lab / Micro Data 12/11/24 05:19 12/11/24 05:19 Labs: Laboratory Results - last 24 hr 12/10/24 14:30: Urine Color Yellow, Urine Clarity Sl. Cloudy, Urine pH 6.5, Ur Specific [place] 1.010, Urine Protein Negative, Urine Glucose (UA) Normal, Urine Ketones Negative, Urine Occult Blood 10 H, Urine Nitrite Negative, Urine Bilirubin Negative, Urine Urobilinogen Normal, Ur Leukocyte Esterase 100 H, Urine RBC 0-5 SEEN, Urine WBC 5-10 SEEN, Ur Squamous Epith Cells 0-5 SEEN, Urine Bacteria 1+, Urine Mucus 0 SEEN 12/11/24 05:19: WBC 11.7 H, RBC 3.99 L, Hgb 11.5 L, Hct 35.6 L, MCV 89.2, MCH 28.8, MCHC 32.3, RDW Std Deviation 44.9 H, RDW Coeff of Gino 13.7, Plt Count 210, MPV 9.0, Immature Gran % (Auto) 0.600, Neut % (Auto) 77.6 H, Lymph % (Auto) 11.5 L, [place] % (Auto) 6.8, Eos % (Auto) 3.0, Baso % (Auto) 0.5, Absolute Neuts (auto) 9.1 H, Absolute Lymphs (auto) 1.35, Nucleated RBC % 0, Sodium 138, Potassium 3.7, Chloride Direct 103, Carbon Dioxide 24.9, Anion Gap 10, BUN 17, Creatinine 0.76, Estim Creat Clear Calc 67.57, Est GFR (MDRD) Non-Af 92, BUN/Creatinine Ratio 22.6 H, Glucose 93, Calcium 8.4, Triglycerides 79, Cholesterol 143, VLDL Cholesterol 16, HDL Cholesterol 38 L, Cholesterol/HDL Ratio 3.74, Vitamin B12 2778 H, TSH 3.150 Micro: Microbiology 12/10/24 14:30 Urine, Random Urine Culture - Preliminary Staphylococcus aureus 12/10/24 13:59 Mucosa - Nose SARS-CoV-2, Influenza & RSV (PCR) - Final Radiography Diagnostic Testing: Radiology Impression Brain MRI 12/11/24 09:00 IMPRESSION: 1. Acute ischemia in the mid and posterior right temporal lobes. 2. Age-appropriate volume loss and remote small vessel ischemic changes 3. Remote left basal ganglia lacunar infarct Reading Location: [facility] 12/11/24 09:00 IMPRESSION: Significant narrowing of the cavernous right internal carotid artery and right middle cerebral artery. Reading Location: [facility] Neck [facility] 12/11/24 09:00 IMPRESSION: No hemodynamically significant stenosis in the arteries of the neck. Reading Location: [facility] Physical Exam Narrative General: Alert but sleepy, Oriented x2, Cooperative, No apparent distress HEENT: Atraumatic, PERRLA, EOMI, Normocephalic Oral: Dry mucosa, tongue is red and painful Neck: Supple, No JVD Lungs: Diminished, Normal air movement, No rhonchi, No wheeze, No rales Cardiovascular: Regular rate, Regular Rhythm, Normal S1, Normal S2, No murmurs Abdomen: Soft, Non Tender, Non-Distended, No Hepato-splenomegaly Extremities: No edema, Capillary Refill Less than 3 Seconds Skin: No rashes, No breakdown Musculoskeletal: No Tenderness to Palpation of Joints or Extremities Neurological: No focal neurological deficits, moves all extremities, with some aphasia Psych/Mental Status: Normal Affect, Appropriate Assessment & Plan Assessment/Plan (1) CVA (cerebrovascular accident): PLAN: Plan 1. CVA of the right temporal lobe ? Continue with Eliquis and aspirin as he has A-fib ? Echo and LDLs pending ? Continue with statin therapy ? Appreciate neurology's assistance ? MRA of the head there is a significant narrowing of the cavernous right internal carotid artery and right middle cerebral artery and the MRI of the neck is negative for any narrowing or obstruction ? Unclear if the MRI of the head was read at the time of neurology evaluation will reach out for treatment options given that it appears to be in the similar distribution as his strokes 2. Essential HTN/HLD/A-fib ? Continue with his Eliquis ? Continue with Lipitor ? He was on a Cardizem drip and had to be given a bolus given his hypotension he is now returned to normal sinus rhythm and will continue with metoprolol, his dose was increased from 50 daily to 50 twice daily. 3. Adrenal insufficiency ? Stable ? Continue with hydrocortisone 4. Dry mouth ? Unclear as to the etiology of his right tongue does have a history of non-small cell lung cancer ? Further lab work is pending ? May benefit from ENT follow-up as an outpatient DVT: Eliquis Charges/Coding Visit Charges Inpatient E&M: 02155 Subs Hosp L2
[2024-12-11] MEDS: Mirtazapine 15 MG Tablet PO (21:45)
[2024-12-11] MEDS: Atorvastatin Calcium 40 MG Tablet PO (21:47)
[2024-12-11] MEDS: Cephalexin 500 MG Capsule PO (21:47)
[2024-12-12] VITALS (8 sets, daily range): BP systolic 108–158; BP diastolic 53–70; PULSE 65–76; RESP 16–18; TEMP 36.5–36.8; O2SAT 97–99
[2024-12-12] MEDS: Cephalexin 500 MG Capsule PO ×3 (05:39→22:15)
[2024-12-12] MEDS: Levothyroxine 150 MCG Tablet PO (05:39)
[2024-12-12 07:00] LABS: Absolute Lymphocyte Count 1.41 X10^3/uL (0.83-4.51); Absolute Neutrophil Count 8.5 X10^3/uL (2.0-7.7); Basophil# 0.07 X10^3/uL; Basophil% 0.6 % (0-1); Eosinophil# 0.38 X10^3/uL; Eosinophils% 3.3 % (0-5); Hematocrit 32.9 % (40-54); Hemoglobin 11.1 g/dL (13.0-16.5); Lymphocyte # 1.41 X10^3/ul (0.83-4.51); Lymphocyte % 12.4 % (19-41); Mean Corp Hgb Conc 33.7 g/dL (32-36); Mean Corpuscular Hgb 29.2 pg (27.0-32.0); Mean Corpuscular Volume 86.6 fL (80-94); Mean Platelet Vol. 8.7 fl (6.2-12.0); Monocyte# 0.96 X10^3/uL; Monocyte% 8.4 % (0-10); NRBC Flagged by Analyzer 0 % (0-5); Neutrophil # 8.53 X10^3/uL (2.7-7.7); Neutrophil % 74.8 % (47-70); Platelet Count 174 K/mm3 (150-450); RBC Distribution Width CV 13.5 % (11.6-14.6); RBC Distribution Width SD 42.1 fl (35.1-43.9); White Blood Count 11.4 K/mm3 (4.4-11.0)
[2024-12-12 08:43] LABS: Anion Gap 12 (5-15); BUN 13 mg/dL (4-19); BUN/Creat Ratio 19.3 RATIO (10-20); Carbon Dioxide 21.8 mmol/L (22.0-29.0); Chloride 103 mmol/L (96-108); Creatinine, Serum 0.68 mg/dL (0.70-1.20); EST Glomerular Filtration Rate 95 (>60); Estimated Creatinine Clearance 67.57 ml/min (50-250); Glucose 99 mg/dL (70-99); Potassium 3.5 mmol/L (3.3-5.1); Sodium Level 136 mmol/L (133-145)
[2024-12-12] MEDS: APIXABAN 5 MG TABLET PO ×2 (09:10→22:14)
[2024-12-12] MEDS: Ensure Plus High Protein 120 ML LIQUID PO ×2 (09:11→12:09)
[2024-12-12] MEDS: Furosemide 20 MG Tablet PO (09:11)
[2024-12-12] MEDS: Hydrocortisone 10 MG Tablet GT (09:11)
[2024-12-12] MEDS: Metoprolol(XL)Succ 50 MG Tablet PO ×2 (09:13→22:15)
[2024-12-12] MEDS: Acetaminophen 325 MG Tablet 650 MG PO (10:21)
[2024-12-12] MEDS: Aspirin 81 MG TAB.CHEW PO (10:22)
[2024-12-12] MEDS: Hydrocortisone 10 MG Tablet 5 MG PO (13:33)
[2024-12-12] MEDS: Saliva Substitute 237 ML BOTTLE 15 ML MUCOUS MEM (14:34)
--- NOTE | 2024-12-12 14:45 | CASEMGMT ---
RAMIN SANCHEZ Face to Face with patient for initial transition planning/care coordination assessment. RAMIN SANCHEZ introduced self and role at [facility]. Patient sitting in chair, alert and oriented, daughter at bedside. Patient willing to participate in assessment and is able to answer all questions appropriately. Care providers, pharmacy, and demographics verified. Strata: 3 PCP: Kayley Specialists: Alexa, oncologist; Gissel, educational manager; Preferred Pharmacy: [facility] Retail Insurance:[employer] Prescription Benefit: yes Living Will/HPOA: yes, daughter Jeimy Bo LNOK: daughters, Living Arrangements: Patient lives with grandson in a condo with 3 steps to enter. Patient was independent at home. Transportation: self, daughter DME/HHC: Patient has raised toilet, cane, walker at home. No previous SNF. Patient has had [facility] HHC in the past. No previous SNF Patient wishes to discharge home, discuss progress with therapy and recommendation for additional therapy. RAMIN SANCHEZ discuss acute rehab, patient and daughter agreeable and prefer [facility] Acute Rehab, declined list. Patient states he has no further needs or concerns at this time. SW notified of request for Acute Rehab. CM to follow for discharge planning needs that may arise. Disposition Plan: [facility] Acute Rehab pending acceptance and precert. Keara OLIVERA, RN, CM
--- NOTE | 2024-12-12 15:48 | CASEMGMT ---
Per RN CM patient and his daughter are interested in [facility] Acute Rehab. SW made a referral to the Rehab Unit. Marjan VIERA
--- NOTE | 2024-12-12 15:49 | PN.HOSP_ITS ---
Subjective Subjective Doing well this morning, much more alert than he was yesterday however nursing reports he has waxing and waning symptoms throughout the day Objective Data Objective Data Vital Signs: Vital Signs Temp Pulse Resp BP Pulse Ox O2 Del Method 98.1 F 76 18 108/53 L 99 Room Air 12/12/24 14:00 12/12/24 14:00 12/12/24 14:00 12/12/24 14:00 12/12/24 14:00 12/12/24 14:00 Oxygen Delivery Method Room Air Weight: 146 lb 11.2 oz Body Mass Index (BMI) 23.6 Intake & Output: Intake and Output for Last 24 Hours 12/11/24 12/12/24 12/13/24 03:59 03:59 03:59 Intake Total 2280 / 2280 1301.24 / 1301.24 60 / 60 Balance 2280 / 2280 1301.24 / 1301.24 60 / 60 Lab / Micro Data 12/12/24 06:45 12/12/24 06:45 Labs: Laboratory Results - last 24 hr 12/12/24 06:45: WBC 11.4 H, RBC 3.80 L, Hgb 11.1 L, Hct 32.9 L, MCV 86.6, MCH 29.2, MCHC 33.7, RDW Std Deviation 42.1, RDW Coeff of Gino 13.5, Plt Count 174, MPV 8.7, Immature Gran % (Auto) 0.500, Neut % (Auto) 74.8 H, Lymph % (Auto) 12.4 L, [place] % (Auto) 8.4, Eos % (Auto) 3.3, Baso % (Auto) 0.6, Absolute Neuts (auto) 8.5 H, Absolute Lymphs (auto) 1.41, Nucleated RBC % 0, Sodium 136, Potassium 3.5, Chloride Direct 103, Carbon Dioxide 21.8 L, Anion Gap 12, BUN 13, C reatinine 0.68 L, Estim Creat Clear Calc 67.57, Est GFR (MDRD) Non-Af 95, BUN/Creatinine Ratio 19.3, Glucose 99, Calcium 8.0 Micro: Microbiology 12/10/24 14:30 Urine, Random Urine Culture - Final Meth. resistant Staph. aureus 12/10/24 13:59 Mucosa - Nose SARS-CoV-2, Influenza & RSV (PCR) - Final Radiography Diagnostic Testing: Radiology Impression Echocardiogram 12/10/24 16:07 Interpretation Summary Inferior hypokinesis. Estimated LVEF 55 to 60%. Bubble contrast study is negative for PFO/ASD. Severe mitral annular calcification. Ordering Physician: Felton Brown Referring Physician: Lisandro Zaldivar MD Performed By: Coco Rodrigues RCS Physical Exam Narrative General: Alert but sleepy, Oriented x2, Cooperative, No apparent distress HEENT: Atraumatic, PERRLA, EOMI, Normocephalic Oral: Moist mucosa, tongue is red and painful with an abnormal contour Neck: Supple, No JVD Lungs: Diminished, Normal air movement, No rhonchi, No wheeze, No rales Cardiovascular: Regular rate, Regular Rhythm, Normal S1, Normal S2, No murmurs Abdomen: Soft, Non Tender, Non-Distended, No Hepato-splenomegaly Extremities: No edema, Capillary Refill Less than 3 Seconds Skin: No rashes, No breakdown Musculoskeletal: No Tenderness to Palpation of Joints or Extremities Neurological: No focal neurological deficits, moves all extremities, with some aphasia Psych/Mental Status: Normal Affect, Appropriate Assessment & Plan Assessment/Plan (1) CVA (cerebrovascular accident): PLAN: Plan 1. CVA of the right temporal lobe ? Continue with Eliquis and aspirin as he has A-fib ? Echo with an EF of 55 to 60% with no PFO ? Continue with statin therapy ? Appreciate neurology's assistance ? MRA of the head there is a significant narrowing of the cavernous right internal carotid artery and right middle cerebral artery and the MRI of the neck is negative for any narrowing or obstruction 2. Essential HTN/HLD/A-fib ? Continue with his Eliquis ? Continue with Lipitor ? Continue with metoprolol 50 mg p.o. twice daily as he is currently in normal sinus rhythm 3. Adrenal insufficiency ? Stable ? Continue with hydrocortisone 4. Dry mouth with an abnormal tongue contour ? Unclear as to the etiology of his right tongue does have a history of non- small cell lung cancer ? Further lab work is pending ? May benefit from ENT follow-up as an outpatient DVT: Eliquis Charges/Coding Visit Charges Inpatient E&M: 74972 Subs Hosp L2
--- NOTE | 2024-12-12 15:50 | CASEMGMT ---
[facility] Acute Rehab has accepted patient. ANNALISE will work on obtaining pre-cert. SW notified patient and his daughter as well as physician. Marjan VIERA
[2024-12-12] MEDS: Atorvastatin Calcium 40 MG Tablet PO (22:15)
[2024-12-12] MEDS: Mirtazapine 15 MG Tablet PO (22:15)
[2024-12-12] MEDS: 0.9% Saline Lock 10 ML Syringe IV (22:21)
[2024-12-13] VITALS (18 sets, daily range): BP systolic 80–143; BP diastolic 48–89; PULSE 59–133; RESP 13–20; TEMP 36.2–36.9; O2SAT 97–100
[2024-12-13] MEDS: Levothyroxine 150 MCG Tablet PO (05:51)
[2024-12-13] MEDS: Cephalexin 500 MG Capsule PO (05:51)
[2024-12-13 06:23] LABS: Absolute Lymphocyte Count 1.42 X10^3/uL (0.83-4.51); Absolute Neutrophil Count 9.2 X10^3/uL (2.0-7.7); Basophil# 0.07 X10^3/uL; Basophil% 0.6 % (0-1); Eosinophil# 0.38 X10^3/uL; Eosinophils% 3.2 % (0-5); Hematocrit 34.6 % (40-54); Hemoglobin 11.7 g/dL (13.0-16.5); Lymphocyte # 1.42 X10^3/ul (0.83-4.51); Lymphocyte % 11.8 % (19-41); Mean Corp Hgb Conc 33.8 g/dL (32-36); Mean Corpuscular Hgb 29.6 pg (27.0-32.0); Mean Corpuscular Volume 87.6 fL (80-94); Mean Platelet Vol. 9.4 fl (6.2-12.0); Monocyte# 0.93 X10^3/uL; Monocyte% 7.7 % (0-10); NRBC Flagged by Analyzer 0 % (0-5); Neutrophil # 9.19 X10^3/uL (2.7-7.7); Neutrophil % 76.4 % (47-70); Platelet Count 203 K/mm3 (150-450); RBC Distribution Width CV 13.6 % (11.6-14.6); RBC Distribution Width SD 43.4 fl (35.1-43.9); Red Blood Count 3.95 M/mm3 (4.6-6.2)
[2024-12-13 06:39] LABS: Anion Gap 11 (5-15); BUN 13 mg/dL (4-19); BUN/Creat Ratio 15.7 RATIO (10-20); Calcium,Total 8.6 mg/dL (7.6-11.0); Carbon Dioxide 24.7 mmol/L (21.0-32.0); Chloride 101 mmol/L (98-108); EST Glomerular Filtration Rate 90 (>60); Estimated Creatinine Clearance 67.57 ml/min (50-250); Glucose 92 mg/dL (70-99); Potassium 3.5 mmol/L (3.3-5.1); Sodium Level 137 mmol/L (133-145)
[2024-12-13] MEDS: APIXABAN 5 MG TABLET PO ×2 (08:37→21:49)
[2024-12-13] MEDS: Hydrocortisone 10 MG Tablet GT (08:37)
[2024-12-13] MEDS: Aspirin 81 MG TAB.CHEW PO (08:37)
[2024-12-13] MEDS: Metoprolol(XL)Succ 50 MG Tablet PO (08:37)
[2024-12-13] MEDS: Furosemide 20 MG Tablet PO (08:38)
--- NOTE | 2024-12-13 09:14 | EKG12_ITS ---
Test Reason : Blood Pressure : */* mmHG Vent. Rate : 150 BPM Atrial Rate : * BPM P-R Int : * ms QRS Dur : 102 ms QT Int : 318 ms P-R-T Axes : * 5 168 degrees QTcB Int : 502 ms Critical Test Result: High HR Atrial fibrillation with rapid ventricular response ST & T wave abnormality, consider lateral ischemia Abnormal ECG When compared with ECG of 11-Dec-2024 11:36, Significant changes have occurred Confirmed by Sumit Morfin ([id number]), web content editor MARILOU MORENO ([id number]) on 12/14/2024 5:57:01 AM Referred By: KEYSHA Confirmed By: Sumit Morfin
--- NOTE | 2024-12-13 09:45 | PCM.CONS.C ---
Assessment & Plan Assessment/Plan (1) Atrial fibrillation with RVR: PLAN: Patient has a history of atrial fibrillation he is on Eliquis and metoprolol in his home environment. Upon original admission to the hospital this admission he was in sinus rhythm. He went into atrial fibrillation with a rapid ventricular response and the patient is now having respiratory issues and is somewhat somnolent. His heart rate is in the 140-150 bpm range. He did not tolerate diltiazem due to a drop in his blood pressure. I would recommend we place him on IV amiodarone for rate control and hopefully conversion back into sinus rhythm and he is he has been anticoagulated without interruption by report. Would also continue his metoprolol as blood pressure and heart rate will tolerate. Would hold the metoprolol if his blood pressure is less than 100 systolic. (2) CVA (cerebrovascular accident): QUALIFIERS: CVA mechanism: unspecified Qualified Code(s): I63.9 - Cerebral infarction, unspecified PLAN: Patient was outside the window for TNK treatment. He is being evaluated and treated by the primary service. PLAN: Plan 1. Will add IV amiodarone loading dose and infusion. If unable to get rate controlled in the next few hours would add IV Lanoxin to his rate management medical therapy. 2. Continue Eliquis as tolerated from a neurologic standpoint. 3. We will follow-up with you as needed. HPI Consult Data Date of Consult: 12/13/24 HPI Narrative Reason for Consultation: Atrial fibrillation with rapid ventricular response. HPI Narrative: RAJAN ROSEN, is a 79 M who presents patient presented with a CVA. It appeared that he was several days out and outside the window for TNK. Initially he was in normal sinus rhythm on his EKG with no significant ST-T wave changes. Patient does carry history of atrial fibrillation. He has been on long-term Eliquis 5 mg twice daily metoprolol succinate 50 mg daily. This is being in his home environment. He was brought to emergency department by his daughter who found that he was not eating appropriately and she brought him to the emergency department. The patient was found to have a hypodense area on his CT scan consistent with a possible recent infarct. He did not have any problems speaking denied any significant weakness. Since admission the patient has developed rapid ventricular response with his atrial fibrillation in the 140-150 bpm range. He did not respond to diltiazem IV due to low blood pressure and increasing his metoprolol to 50 twice daily is not controlled the rate. The patient is currently somnolent which is new by the nursing staff. However it apparently occurs when he dropped his blood pressure in the past. His blood pressure is currently 90 systolic. Telemetry shows the patient in atrial fibrillation with a rapid ventricular response and EKG shows atrial for but a heart rate of 150 bpm cannot rule out an old inferior wall infarct but this is really unchanged in the inferior leads compared to his previous EKG which was not read as an old inferior wall infarct. Recent echocardiogram yesterday 12/12/2024 showed an LV ejection fraction of 60% with mild area of hypokinesis in the inferior segment, normal atrial sizes with no evidence of an ASD by bubble study. The patient's valves were difficult to evaluate due to difficult visualization. No obvious significant valvular abnormalities were documented. [facility] Medical History Constipation Encounter for antineoplastic immunotherapy Atrial fibrillation with RVR Wears glasses History of steroid therapy High cholesterol Gastric reflux Non-smoker Shortness of breath on exertion History of edema History of echocardiogram History of rheumatic fever Hypertension Cardiology follow-up encounter Dehydration Adrenal insufficiency Weakness Elevated bilirubin Hyponatremia Imbalance Nausea Thrombocytopenia Pleural effusion, bilateral Stomatitis Drug induced neutropenia Impaired glucose tolerance Encounter for chemotherapy management Edema of extremities Atherosclerotic heart disease of [place] coronary artery without angina pectoris Bilateral lower leg cellulitis Nonrheumatic aortic (valve) stenosis Obesity Elevated liver enzymes Essential (primary) hypertension Chemotherapy management, encounter for Bacteremia (12/21/19) Rash Hoarseness of voice Encounter for adjustment and management of vascular access device Immunotherapy encounter Anemia Localized swelling, mass and lump, neck Encounter for education Hypothyroidism HLD (hyperlipidemia) Non-small cell carcinoma of lung Pneumothorax, left Primary lung cancer 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 Home Medications ?Medication ?Instructions ?Recorded ?Last Taken ?Type Handicap Placard #1 ea 07/30/23 Unknown Rx levothyroxine 150 mcg tablet 150 mcg PO QDAY thyroid #90 tabs 09/01/24 Unknown Rx atorvastatin 40 mg tablet 40 mg PO QHS cholesterol 10/25/24 Unknown History hydrocortisone 5 mg tablet 5 mg PO 1300 adrenal gland 10/25/24 Unknown History hydrocortisone 5 mg tablet 10 mg PO .am adrenal gland 10/25/24 Unknown History apixaban 5 mg tablet (Eliquis) 5 mg PO BID 30 days #60 tabs 10/27/24 Unknown Rx furosemide 20 mg tablet (Lasix) 20 mg PO DAILY 1 month #30 tabs 10/27/24 Unknown Rx metoprolol succinate 50 mg 50 mg PO DAILY 30 days #0 tabs 10/27/24 Unknown Rx tablet,extended release 24 hr mirtazapine 15 mg tablet 7.5 mg PO QHS Mood 11/09/24 Unknown History Allergy/AdvReac Type Severity Reaction Status Date / Time No Known Allergies Allergy Verified 11/30/24 08:43 Family History Uncle Cancer Mother CVA (cerebral vascular accident) Surgical History Hx of colonoscopy History of vascular access device History of left heart catheterization (04/29/21) Hx of lymph node biopsy History of tonsillectomy and adenoidectomy History of wisdom tooth extraction Social History housing: house Smoking Status: Never smoker second hand exposure: No alcohol intake: never substance use type: does not use caffeine: Yes what type of physical activity do you participate in: none frequency: does not exercise ROS ROS Narrative I could not obtain review of systems. The nursing staff did inform me that he was following commands and taking his pills orally this morning. And he was answering questions. He now will barely open his eyes and then only transiently. He also noted he had episodes of apnea. Review of Systems ROS Unobtainable: due to mental status and other Details: To respond to questions and barely responsive to stimulation. Physical Exam Narrative Patient is resting in the seated position in bed at 90 degrees. He responds to physical stimuli and loud verbal stimuli only transiently to open his eyes and then closes them. He does straighten himself using his right arm in bed. HEENT normocephalic Eyes Eyes Narrative: Patient only transiently opens his eyes. Neck no JVD Chest inspection of chest normal Resp Resp Narrative: Patient has short episodes of apnea and then some rapid breathing. Auscultation: diminished lung sounds bilateral lower Cardio Rate: tachycardic Rhythm: abnormal rhythm irregularly irregular Heart Sounds: S1 normal and S2 normal; Negative for click, gallop or murmur GI soft to palpation Extremity no pedal edema Neuro Neuro Narrative: Somnolent and minimally arousable. Risk Stratification Risk Stratification Applicable: No Charges/Coding Visit Charges Inpatient E&M: 72223 Subs Hosp L2 Objective Data Vital Signs: Vital Signs Temp Pulse Resp BP Pulse Ox O2 Del Method 98.4 F 122 H 14 127/89 H 98 Room Air 12/13/24 08:35 12/13/24 08:37 12/13/24 08:35 12/13/24 08:35 12/13/24 08:35 12/13/24 08:35 Oxygen Delivery Method Room Air Weight: 146 lb 11.2 oz Body Mass Index (BMI) 23.6 Intake & Output: Intake and Output for Last 24 Hours 12/11/24 12/12/24 12/13/24 23:59 23:59 23:59 Intake Total 1421.24 / 1421.24 260 / 260 Balance 1421.24 / 1421.24 260 / 260 Lab / Micro Data Attestation: I reviewed the patient's lab results. 12/13/24 05:08 12/13/24 05:08 Labs: Laboratory Results - last 24 hr 12/11/24 05:19: Sodium 138, Potassium 3.7, Chloride Direct 103, Carbon Dioxide 24.9, Anion Gap 10, BUN 17, Creatinine 0.76, Estim Creat Clear Calc 67.57, Est GFR (MDRD) Non-Af 92, BUN/Creatinine Ratio 22.6 H, Glucose 93, Calcium 8.4, Triglycerides 79, Cholesterol 143, LDL Cholesterol, Calc 89, VLDL Cholesterol 16, HDL Cholesterol 38 L, Cholesterol/HDL Ratio 3.74, Vitamin B12 2778 H, TSH 3.150 12/13/24 05:08: WBC 12.0 H, RBC 3.95 L, Hgb 11.7 L, Hct 34.6 L, MCV 87.6, MCH 29.6, MCHC 33.8, RDW Std Deviation 43.4, RDW Coeff of Gino 13.6, Plt Count 203, MPV 9.4, Immature Gran % (Auto) 0.300, Neut % (Auto) 76.4 H, Lymph % (Auto) 11.8 L, [place] % (Auto) 7.7, Eos % (Auto) 3.2, Baso % (Auto) 0.6, Absolute Neuts (auto) 9.2 H, Absolute Lymphs (auto) 1.42, Nucleated RBC % 0, Sodium 137, Potassium 3.5, Chloride 101, Carbon Dioxide 24.7, Anion Gap 11, BUN 13, Creatinine 0.80, Estim Creat Clear Calc 67.57, Est GFR (MDRD) Non-Af 90, BUN/Creatinine Ratio 15.7, Glucose 92, Calcium 8.6 Micro: Microbiology 12/10/24 14:30 Urine, Random Urine Culture - Final Meth. resistant Staph. aureus Rhythm Strip Rhythm Strip: A-fib Rate: 145 Cardiology Labs/Tests 12/11/24 05:19: Sodium 138, Potassium 3.7, Carbon Dioxide 24.9, Anion Gap 10, BUN 17, Creatinine 0.76, Est GFR (MDRD) Non-Af 92, BUN/Creatinine Ratio 22.6 H, Glucose 93, Calcium 8.4, Triglycerides 79, Cholesterol 143, VLDL Cholesterol 16, HDL Cholesterol 38 L, Cholesterol/HDL Ratio 3.74 12/13/24 05:08: WBC 12.0 H, RBC 3.95 L, Hgb 11.7 L, Hct 34.6 L, MCV 87.6, MCH 29.6, MCHC 33.8, Plt Count 203, MPV 9.4, Immature Gran % (Auto) 0.300, Neut % (Auto) 76.4 H, Lymph % (Auto) 11.8 L, [place] % (Auto) 7.7, Eos % (Auto) 3.2, Baso % (Auto) 0.6, Absolute Neuts (auto) 9.2 H, Nucleated RBC % 0, Sodium 137, Potassium 3.5, Chloride 101, Carbon Dioxide 24.7, Anion Gap 11, BUN 13, Creatinine 0.80, Est GFR (MDRD) Non-Af 90, BUN/Creatinine Ratio 15.7, Glucose 92, Calcium 8.6 Rhythm: EKG: ECHO: Stress Test: Cardiac Cath: PCI: CT Surgery: Holter monitor: EPS: PPM: CXR: Chest CT Scan: Radiography Diagnostic Testing: Radiology Impression Echocardiogram 12/10/24 16:07 Interpretation Summary Inferior hypokinesis. Estimated LVEF 55 to 60%. Bubble contrast study is negative for PFO/ASD. Severe mitral annular calcification. Ordering Physician: Felton Brown Referring Physician: Lisandro Zaldivar MD Performed By: Coco Rodrigues RCS
[2024-12-13] MEDS: 0.9% Normal Saline (1000mL) 1,000 ML 999 ML IV (09:54)
--- NOTE | 2024-12-13 10:13 | PCM.PN.HOSP ---
Subjective Subjective Doing well, no new issues overnight. Objective Data Objective Data Vital Signs: Vital Signs Temp Pulse Resp BP Pulse Ox O2 Del Method 98.4 F 122 H 14 127/89 H 98 Room Air 12/13/24 08:35 12/13/24 08:37 12/13/24 08:35 12/13/24 08:35 12/13/24 08:35 12/13/24 08:35 Oxygen Delivery Method Room Air Weight: 146 lb 11.2 oz Body Mass Index (BMI) 23.6 Intake & Output: Intake and Output for Last 24 Hours 12/12/24 12/13/24 12/14/24 03:59 03:59 03:59 Intake Total 1301.24 / 1301.24 260 / 260 Balance 1301.24 / 1301.24 260 / 260 Lab / Micro Data 12/13/24 05:08 12/13/24 05:08 Labs: Laboratory Results - last 24 hr 12/11/24 05:19: Sodium 138, Potassium 3.7, Chloride Direct 103, Carbon Dioxide 24.9, Anion Gap 10, BUN 17, Creatinine 0.76, Estim Creat Clear Calc 67.57, Est GFR (MDRD) Non-Af 92, BUN/Creatinine Ratio 22.6 H, Glucose 93, Calcium 8.4, Triglycerides 79, Cholesterol 143, LDL Cholesterol, Calc 89, VLDL Cholesterol 16, HDL Cholesterol 38 L, Cholesterol/HDL Ratio 3.74, Vitamin B12 2778 H, TSH 3.150 12/13/24 05:08: WBC 12.0 H, RBC 3.95 L, Hgb 11.7 L, Hct 34.6 L, MCV 87.6, MCH 29.6, MCHC 33.8, RDW Std Deviation 43.4, RDW Coeff of Gino 13.6, Plt Count 203, MPV 9.4, Immature Gran % (Auto) 0.300, Neut % (Auto) 76.4 H, Lymph % (Auto) 11.8 L, [place] % (Auto) 7.7, Eos % (Auto) 3.2, Baso % (Auto) 0.6, Absolute Neuts (auto) 9.2 H, Absolute Lymphs (auto) 1.42, Nucleated RBC % 0, Sodium 137, Potassium 3.5, Chloride 101, Carbon Dioxide 24.7, Anion Gap 11, BUN 13, Creatinine 0.80, Estim Creat Clear Calc 67.57, Est GFR (MDRD) Non-Af 90, BUN/Creatinine Ratio 15.7, Glucose 92, Calcium 8.6 Micro: Microbiology 12/10/24 14:30 Urine, Random Urine Culture - Final Meth. resistant Staph. aureus 12/10/24 13:59 Mucosa - Nose SARS-CoV-2, Influenza & RSV (PCR) - Final Radiography Diagnostic Testing: Radiology Impression Echocardiogram 12/10/24 16:07 Interpretation Summary Inferior hypokinesis. Estimated LVEF 55 to 60%. Bubble contrast study is negative for PFO/ASD. Severe mitral annular calcification. Ordering Physician: Felton Brown Referring Physician: Lisandro Zaldivar MD Performed By: Coco Rodrigues RCS Rhythm Strip Rhythm Strip: A-fib Rate: 145 Physical Exam Narrative General: Alert but sleepy, Oriented x2, Cooperative, No apparent distress HEENT: Atraumatic, PERRLA, EOMI, Normocephalic Oral: Moist mucosa, tongue is red and painful with an abnormal contour Neck: Supple, No JVD Lungs: Diminished, Normal air movement, No rhonchi, No wheeze, No rales Cardiovascular: Regular rate, Regular Rhythm, Normal S1, Normal S2, No murmurs Abdomen: Soft, Non Tender, Non-Distended, No Hepato-splenomegaly Extremities: No edema, Capillary Refill Less than 3 Seconds Skin: No rashes, No breakdown Musculoskeletal: No Tenderness to Palpation of Joints or Extremities Neurological: No focal neurological deficits, moves all extremities, with some aphasia Psych/Mental Status: Normal Affect, Appropriate Assessment & Plan Assessment/Plan (1) CVA (cerebrovascular accident): QUALIFIERS: CVA mechanism: unspecified Qualified Code(s): I63.9 - Cerebral infarction, unspecified PLAN: Plan 1. CVA of the right temporal lobe/MRSA UTI ? Continue with Eliquis and aspirin as he has A-fib ? Echo with an EF of 55 to 60% with no PFO ? Continue with statin therapy ? Appreciate neurology's assistance ? MRA of the head there is a significant narrowing of the cavernous right internal carotid artery and right middle cerebral artery and the MRI of the neck is negative for any narrowing or obstruction ? Will transition his Keflex to Macrobid given sensitivities of urine culture. 2. Essential HTN/HLD/A-fib ? Continue with his Eliquis ? Continue with Lipitor ? Continue with metoprolol 50 mg p.o. twice daily as he is currently in normal sinus rhythm 3. Adrenal insufficiency ? Stable ? Continue with hydrocortisone 4. Dry mouth with an abnormal tongue contour ? Unclear as to the etiology of his right tongue does have a history of non-small cell lung cancer ? Further lab work is pending, B12 is normal ? May benefit from ENT follow-up as an outpatient DVT: Nina Charges/Coding Visit Charges Inpatient E&M: 06748 Subs Hosp L2
[2024-12-13] MEDS: Amiodarone 360 MG in Dextrose 5% Viaflo Bag 192.8 ML 33.3 MG CONT INF (10:20)
[2024-12-13] MEDS: Nitrofurantoin Macrocrystals 100 MG Capsule PO ×2 (12:10→21:49)
[2024-12-13] MEDS: 0.9% Normal Saline (1000mL) 1,000 ML 500 ML IV (14:18)
--- NOTE | 2024-12-13 14:48 | EKG12_ITS ---
Test Reason : RHYTHM CHANGE Blood Pressure : */* mmHG Vent. Rate : 60 BPM Atrial Rate : 60 BPM P-R Int : 184 ms QRS Dur : 104 ms QT Int : 490 ms P-R-T Axes : 55 0 74 degrees QTcB Int : 490 ms Normal sinus rhythm Prolonged QT Abnormal ECG When compared with ECG of 13-Dec-2024 09:27, MANUAL COMPARISON REQUIRED DATA IS UNCONFIRMED Confirmed by Sumit Morfin ([id number]), continuity editor MARILOU MORENO ([id number]) on 12/14/2024 7:31:47 AM Referred By: Confirmed By: Sumit Morfin
[2024-12-13 17:07] LABS: Folate, RBC (Hct) Test 36.8 % (37.5-51.0); Folates, RBC Test 1068 ng/mL (>498)
[2024-12-13] MEDS: Metoprolol(XL)Succ 25 MG Tablet PO ×2 (17:26→21:49)
[2024-12-13] MEDS: BMX LIQUID 180 ML 10 ML PO (17:55)
[2024-12-13] MEDS: MENTHOL 226.8 GM JAR 1 APPLIC TOPICAL (17:55)
[2024-12-13] MEDS: Amiodarone 200 MG Tablet PO (21:49)
[2024-12-13] MEDS: Mirtazapine 15 MG Tablet PO (21:49)
[2024-12-13] MEDS: Atorvastatin Calcium 40 MG Tablet PO (21:50)
[2024-12-14] VITALS (7 sets, daily range): BP systolic 105–160; BP diastolic 55–61; PULSE 62–72; RESP 16–18; TEMP 36.8–37.4; O2SAT 95–99
[2024-12-14 05:17] LABS: Absolute Lymphocyte Count 1.24 X10^3/uL (0.83-4.51); Absolute Neutrophil Count 7.9 X10^3/uL (2.0-7.7); Basophil# 0.07 X10^3/uL; Basophil% 0.7 % (0-1); Eosinophils% 3.8 % (0-5); Hematocrit 32.6 % (40-54); Hemoglobin 11.2 g/dL (13.0-16.5); Lymphocyte # 1.24 X10^3/ul (0.83-4.51); Lymphocyte % 11.7 % (19-41); Mean Corp Hgb Conc 34.4 g/dL (32-36); Mean Corpuscular Volume 87.4 fL (80-94); Mean Platelet Vol. 9.2 fl (6.2-12.0); Monocyte# 0.96 X10^3/uL; NRBC Flagged by Analyzer 0 % (0-5); Neutrophil % 74.4 % (47-70); Platelet Count 173 K/mm3 (150-450); RBC Distribution Width CV 13.7 % (11.6-14.6); RBC Distribution Width SD 43.7 fl (35.1-43.9); Red Blood Count 3.73 M/mm3 (4.6-6.2); White Blood Count 10.6 K/mm3 (4.4-11.0)
[2024-12-14 06:03] LABS: Anion Gap 8 (5-15); BUN 12 mg/dL (4-19); BUN/Creat Ratio 14.3 RATIO (10-20); Calcium,Total 8.3 mg/dL (7.6-11.0); Carbon Dioxide 25.2 mmol/L (21.0-32.0); Chloride 101 mmol/L (98-108); Creatinine, Serum 0.87 mg/dL (0.70-1.20); EST Glomerular Filtration Rate 88 (>60); Estimated Creatinine Clearance 62.13 ml/min (50-250); Glucose 87 mg/dL (70-99); Potassium 3.9 mmol/L (3.3-5.1); Sodium Level 134 mmol/L (133-145)
[2024-12-14] MEDS: Levothyroxine 150 MCG Tablet PO (06:04)
--- NOTE | 2024-12-14 08:58 | PCM.PN.CARD ---
Subjective Subjective Patient is more alert this morning. He is actually undergoing a swallow test at this time. He is able to briefly answer yes/no questions. He has remained in sinus rhythm since his conversion yesterday. However his QT interval is 490 ms and is seems to be longer this morning on his telemetry strips. Objective Data Vital Signs: Vital Signs Temp Pulse Resp BP Pulse Ox O2 Del Method O2 Flow Rate 99.1 F 62 16 152/55 H 95 Room Air 2 12/14/24 04:46 12/14/24 04:46 12/14/24 04:46 12/14/24 04:46 12/14/24 04:46 12/14/24 04:46 12/13/24 16:00 Oxygen Flow Rate (L/min) 2 Oxygen Delivery Method Room Air Weight: 146 lb 11.2 oz Body Mass Index (BMI) 23.6 Intake & Output: Intake and Output for Last 24 Hours 12/12/24 12/13/24 12/14/24 23:59 23:59 23:59 Intake Total 260 / 260 2200.00 / 2300.00 100 / 100 Output Total 800 / 875 75 / 75 Balance 260 / 260 1400.00 / 1425.00 Lab / Micro Data Attestation: I reviewed the patient's lab results. 12/14/24 04:17 12/14/24 04:17 Labs: Laboratory Results - last 24 hr 12/11/24 05:19: RBC Folate Hemolysate 393.0, RBC Folate 1068, Hematocrit 36.8 L 12/14/24 04:17: WBC 10.6, RBC 3.73 L, Hgb 11.2 L, Hct 32.6 L, MCV 87.4, MCH 30.0, MCHC 34.4, RDW Std Deviation 43.7, RDW Coeff of Gino 13.7, Plt Count 173, MPV 9.2, Immature Gran % (Auto) 0.400, Neut % (Auto) 74.4 H, Lymph % (Auto) 11.7 L, [place] % (Auto) 9.0, Eos % (Auto) 3.8, Baso % (Auto) 0.7, Absolute Neuts (auto) 7.9 H, Absolute Lymphs (auto) 1.24, Nucleated RBC % 0, Sodium 134, Potassium 3.9, Chloride 101, Carbon Dioxide 25.2, Anion Gap 8, BUN 12, Creatinine 0.87, Estim Creat Clear Calc 62.13, Est GFR (MDRD) Non-Af 88, BUN/Creatinine Ratio 14.3, Glucose 87, Calcium 8.3 Rhythm Strip Rhythm Strip: Sinus Rhythm Rate: 60 Cardiology Labs/Tests 12/14/24 04:17: WBC 10.6, RBC 3.73 L, Hgb 11.2 L, Hct 32.6 L, MCV 87.4, MCH 30.0, MCHC 34.4, Plt Count 173, MPV 9.2, Immature Gran % (Auto) 0.400, Neut % (Auto) 74.4 H, Lymph % (Auto) 11.7 L, [place] % (Auto) 9.0, Eos % (Auto) 3.8, Baso % (Auto) 0.7, Absolute Neuts (auto) 7.9 H, Nucleated RBC % 0, Sodium 134, Potassium 3.9, Chloride 101, Carbon Dioxide 25.2, Anion Gap 8, BUN 12, Creatinine 0.87, Est GFR (MDRD) Non-Af 88, BUN/Creatinine Ratio 14.3, Glucose 87, Calcium 8.3 Rhythm: EKG: ECHO: Stress Test: Cardiac Cath: PCI: CT Surgery: Holter monitor: EPS: PPM: CXR: Chest CT Scan: Physical Exam Narrative Patiently currently being examined and undergoing swallowing test. Const alert Orientation / Consciousness: awake HEENT normocephalic Chest inspection of chest normal Resp normal respiratory effort Assessment & Plan Assessment/Plan (1) CVA (cerebrovascular accident): QUALIFIERS: CVA mechanism: unspecified Qualified Code(s): I63.9 - Cerebral infarction, unspecified PLAN: Patient currently being evaluated for swallowing test. He is much more alert than yesterday. His blood pressures is better today. He is also in sinus rhythm. (2) Atrial fibrillation with RVR: PLAN: Patient has a history of paroxysmal atrial fibrillation he is on oral anticoagulation in his home environment and the Eliquis has been continued at 5 mg twice daily. The patient had been loaded with IV amiodarone switched to p.o. load yesterday. However this morning his EKG shows his QT interval has markedly increased to 490-500 ms. I would recommend we discontinue the amiodarone and continue to control him with metoprolol as well as his home dosing regimen. Should he revert into atrial fibrillation and be symptomatic consideration to be given of transient IV amiodarone to cardiovert him back to sinus rhythm. PLAN: Plan 1. DC amiodarone due to prolonged QT interval. 2. Continue metoprolol succinate 25 mg twice daily. If blood pressure will tolerate and heart rate is above 60 would consider increasing to 50 mg twice daily as tolerated. 3. [facility] will be available for assistance if needed. Charges/Coding Visit Charges Inpatient E&M: 28902 Subs Hosp L2
[2024-12-14] MEDS: Aspirin 81 MG TAB.CHEW PO (09:12)
[2024-12-14] MEDS: Nitrofurantoin Macrocrystals 100 MG Capsule PO ×2 (09:12→21:19)
[2024-12-14] MEDS: APIXABAN 5 MG TABLET PO ×2 (09:12→21:19)
[2024-12-14] MEDS: Furosemide 20 MG Tablet PO (09:12)
[2024-12-14] MEDS: Hydrocortisone 10 MG Tablet GT (09:13)
[2024-12-14] MEDS: Metoprolol(XL)Succ 25 MG Tablet PO ×2 (09:14→21:23)
--- NOTE | 2024-12-14 10:29 | SP.MBSS_ITS ---
Modified Barium Swallow Patient Information Study Date: 12/14/24 Study Time: 09:15 Direct Billable Minutes: 125 Total Minutes procedure & reportin Diagnosis: CVA I63.9; NSCLC C34.90 Referring Physician: Dean Wiley Reason for Referral: Assess swallow function, assess risk for aspiration, and determine recommendations for least restrictive diet textures and compensatory strategies to facilitate safe po intake. Medical History: The patient is a 79 y/o M who who was brought to [facility] ED 12/10/2024 by his daughter due to decreased oral intake and just being off over the past few days. In the ER, he denied any trouble speaking, understanding, or any kind of weakness, as well as any visual changes. MRI 12/11/2024 positive for acute ischemia in the mid and posterior right temporal lobes, age-appropriate volume loss and remote small vessel ischemic changes, and remote left basal ganglia lacunar infarct. ST consulted as part of CVA workup. Pt was evaluated by ST 12/11/2024 and recommended soft and bite size textures / thin liquids w/ aspiration precautions; however, no further therapy was recommended. RN had concerns for worsening swallow function in the afternoon on 12/12/2024 and recommended re-consult w/ ST. The patient has increased swallowing difficulty as the day goes on per RNPeggy. The patient presented w/ need for multiple liquid washes w/ drooling/anterior loss of liquids when taking medications in the afternoon on 12/12/2024. Pt unable to be evaluated 12/13/24 due to hypotension and decreased alertness. BSE completed 12/14/2024 recommending NPO w/ recommendation for MBSS prior to diet advancement. Penetration-Aspiration Scale Penetration-Aspiration Scale: OBJECTIVE ASSESSMENT OF SWALLOW FUNCTION (QUANTITATIVE ? PER TRIAL): PENETRATION / ASPIRATION SCALE (WETZEL): 1 = does not enter airway 2 = enters airway/above vocal folds/ejected 3 = enters airway/above vocal folds/not ejected 4 = enters airway/contacts vocal folds/ejected 5 = enters airway/contacts vocal folds/not ejected 6 = enters airway/below vocal folds/ejected 7 = enters airway/below vocal folds/not ejected despite effort 8 = enters airway/below vocal folds/no effort VIDEOFLOROSCOPIC SCALE SCORE (WETZEL): Grade I = aspiration of material that has penetrated into the laryngeal vestibule, intact cough reflex Grade II = aspiration < 10 % of the bolus, intact cough reflex Grade III = aspiration of < 10 % of the bolus, reduced cough reflex or aspiration of > 10 % of the bolus, intact cough reflex Grade IV = aspiration of > 10 % of the bolus, reduced cough reflex Penetration-Aspiration Scale Score Thin Liquid via teaspoon: Result: 5= enters airways/contacts vocal folds/not ejected Thin Liquid via small single sip: cup: Result: 5= enters airways/contacts vocal folds/not ejected [place] Thick Liquid via teaspoon: Result: 1= does not enter airway [place] Thick Liquid via small single sip: cup: Result: 1= does not enter airway Honey Thick Liquid via teaspoon: Result: 1= does not enter airway Pudding via teaspoon: Result: 2= enter airway/above vocal folds/ejected Comment: Esophageal screen - Mild retention in the upper esophagus. [place] Thick Liquid via large single sip: cup: Result: 1= does not enter airway Thin Liquid via sequential sips: cup: Result: 1= does not enter airway Thin Liquid via large single sip: cup: Result: 1= does not enter airway Barium tablet in chocolate pudding: Result: 1= does not enter airway Comment: Pt chewed tablet. Barium tablet in chocolate pudding Trial 2: Comment: Despite verbal instruction and cues, pt chewed barium tablet. No PAS as pt swallowed between this frame of images and liquid wash following. Thin Liquid via large single sip: cup Trial 2: Result: 2= enter airway/above vocal folds/ejected Two diced pears coated in barium pudding: Result: 1= does not enter airway Thin Liquid via sequential sips: cup Trial 2: Result: 2= enter airway/above vocal folds/ejected Oral Phase Labial Seal: Escape beyond mid-chin Tongue Control During Bolus Hold: Posterior escape of less than half of bolus Bolus Preparation/Mastication: Slow prolonged chewing/mashing with complete recollection Bolus Transport/Lingual Motion: Repetitive/disorganized tongue motion Oral Residue: Residue collection on oral structures Pharyngeal Phase Initiation of Pharyngeal Swallow: Bolus head in pyriforms Soft Palate Elevation: Escape to nasopharynx (nectar by tsp) Laryngeal Elevation: Partial superior movement thyroid cart/partial apprx aryt- epig petiole Anterior Hyoid Excursion: Partial anterior movement Epiglottic Movement: Partial inversion Laryngeal Vestibule Closure at Height of Swallow: Incomplete; narrow column of air/contrast in laryngeal vestibule Pharyngeal Stripping Wave: Present - diminished Pharyngoesophageal Segment Opening: Minimal distension and minimal duration; marked obstruction of flow (certain trials, see impressions below) Tongue Base Retraction: Wide column of contrast between tongue base & post. pharyngeal wall Pharyngeal Residue: Majority of contrast within or on pharyngeal structures Esophageal Phase Esophageal Clearance: Esophageal retention Diagnosis/Impression Diagnosis: Mild-mod. oral dysphagia R13.11; Mod. pharyngoesophageal dysphagia R13.14 Impression: The oral phase is primarily marked by... -Poor labial seal making sips by straw difficult. Pt had anterior loss of liquids past the chin intermittently during MBSS. Labial seal is likely impacted by mucositis w/ painful scabbing sores on lips. -Mild-moderate oral residues after the initial swallow. -Disorganized tongue motion for A-P transport. -Slowed, but complete mastication of pears. The pharyngeal phase is primarily marked by... -Velum appeared to spasm intermittently throughout the exam. -Decreased pharyngeal motility w/ decreased TB retraction, pharyngeal stripping wave, and UES opening/duration (see more details above). Pharyngeal residues were seen flowing up to the nasopharynx after the swallow w/ some liquid trials. -Decreased laryngeal elevation and anterior hyoid excursion, which did not eject post prandial laryngeal penetration of first two thin liquid trials, increasing risk for aspiration. Reflexive throat clear did effectively clear residues from the vocal folds and laryngeal vestibule to prevent aspiration. The esophageal phase is primarily marked by... -Poor cricopharyngeal (UES) opening most notable during thin by tsp, thin by small cup sip, honey thick by tsp, and diced pears w/ <50% of the bolus clearing through the UES after the first swallow. Boluses that were larger or heavier (large cup sips, pudding, sequential thin) had improved clearance through the UES and decreased the amount of pharyngeal residue. BUTCHER SUPERVISOR is recommending the patient avoid small sips for this reason, as they resulted in increased pharyngeal residue w/ post prandial laryngeal penetration to the vocal folds. Reflexive throat clearing prevented aspiration from occurring during MBSS. BUTCHER SUPERVISOR reviewed MBSS w/ psychiatry adult physician, Dr. Cruz. 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 -Mild retention of pudding in upper esophagus. Recommendations Diet: Puree Textures and Thin Liquids Comment: AVOID SMALL SIPS (due to cricopharyngeal dysfunction and improved clearance through UES w/ large sips and pudding) Medications crushed in puree Compensatory Strategies: Small Bites, Slow Rate, Alternate bites/solids and sips/liquids (1:1 ratio), Sitting upright and Remain sitting upright for 30 minutes after PO intake Supervision: 1:1 Direct Supervision (Family ok to provide supervision) Recommend Repeat Modified Barium Swallow: Yes (BUTCHER SUPERVISOR reviewed MBSS w/ psychiatry adult physician, Dr. Cruz. 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 Will recommend repeat MBSS in 2-4 weeks to reassess cricopharyngeal dysfunction, if persisting cricopharyngeal deficits will recommend GI consult.) Need for Skilled Speech Therapy Services: Yes Comment: -Train the patient in use of strategies to promote improved pharyngeal clearance and decrease risk for aspiration. -Ongoing assessment of diet tolerance of recommended textures. -Train the patient in oropharyngeal exercise program to improve labial seal, pharyngeal motility, airway closure, and UES opening/duration (lip press as to lerated w/ pain, Effortful, Jose M, Yawn stretch). Recommended Referrals: ENT Consult Education Completed: 1. Described result of evaluation., 4. Family/caregivers understand evaluation & agree w/ goals & tx plan. (BUTCHER SUPERVISOR thoroughly reviewed recommendations w/ pt and pt's daughter. Pt's daughter, who is an RN, verbalized good understanding of recommendations.) and 7. Pt requires further education on strategies & risks. Comment: BUTCHER SUPERVISOR briefly spoke w/ pt's oncologist, Dr. Liu, who felt it is highly unlikely the patient's oral mucositis is secondary to immunotherapy. BUTCHER SUPERVISOR is recommending ENT consult as this mucositis has been occurring intermittently since October [address]. [address] Patient: Active Contact Information [facility] Speech Therapy:: Marlee Gauthier M.A. [facility]BUTCH[facility] SUPERVISOR? Speech-Language Pathologist?? [facility] [address] [place] [address]? [email or web address]?? [phone]
--- NOTE | 2024-12-14 11:25 | PCM.PN.HOSP ---
Reason for Visit Reason for Visit: Diagnoses Unspecified atrial fibrillation (12/10/24) Cerebral infarction, unspecified (12/10/24) Subjective Subjective Patient is a 79-year-old gentleman who was brought to the emergency department with decreased oral intake CT of the head obtained on admission demonstrated-dense in the right parietal occipital lobe concerning for acute/subacute CVA admitted to a monitored bed for further management Objective Data Objective Data Vital Signs: Vital Signs Temp Pulse Resp BP Pulse Ox O2 Del Method O2 Flow Rate 99.4 F H 66 18 105/57 L 96 Room Air 2 12/14/24 09:05 12/14/24 09:14 12/14/24 09:05 12/14/24 09:14 12/14/24 09:05 12/14/24 09:05 12/13/24 16:00 Oxygen Flow Rate (L/min) 2 Oxygen Delivery Method Room Air Weight: 66.542 kg Body Mass Index (BMI) 23.6 Intake & Output: Intake and Output for Last 24 Hours 12/12/24 12/13/24 12/14/24 23:59 23:59 23:59 Intake Total 260 / 260 2200.00 / 2300.00 100 / 100 Output Total 800 / 875 75 / 75 Balance 260 / 260 1400.00 / 1425.00 Lab / Micro Data 12/14/24 04:17 12/14/24 04:17 Labs: Laboratory Results - last 24 hr 12/11/24 05:19: RBC Folate Hemolysate 393.0, RBC Folate 1068, Hematocrit 36.8 L 12/14/24 04:17: WBC 10.6, RBC 3.73 L, Hgb 11.2 L, Hct 32.6 L, MCV 87.4, MCH 30.0, MCHC 34.4, RDW Std Deviation 43.7, RDW Coeff of Gino 13.7, Plt Count 173, MPV 9.2, Immature Gran % (Auto) 0.400, Neut % (Auto) 74.4 H, Lymph % (Auto) 11.7 L, [place] % (Auto) 9.0, Eos % (Auto) 3.8, Baso % (Auto) 0.7, Absolute Neuts (auto) 7.9 H, Absolute Lymphs (auto) 1.24, Nucleated RBC % 0, Sodium 134, Potassium 3.9, Chloride 101, Carbon Dioxide 25.2, Anion Gap 8, BUN 12, Creatinine 0.87, Estim Creat Clear Calc 62.13, Est GFR (MDRD) Non-Af 88, BUN/Creatinine Ratio 14.3, Glucose 87, Calcium 8.3 Micro: Microbiology 12/10/24 14:30 Urine, Random Urine Culture - Final Meth. resistant Staph. aureus 12/10/24 13:59 Mucosa - Nose SARS-CoV-2, Influenza & RSV (PCR) - Final Rhythm Strip Rhythm Strip: Sinus Rhythm Rate: 60 Physical Exam Narrative GENERAL: cooperative HEENT: Atraumatic; normocephalic EYES; Anicteric, Normal Conjunctiva NECK; supple, normal thyroid, RESPIRATORY: Diminished to auscultation CARDIOVASCULAR: Regular S1 S2, GI: soft, normoactive bowel sounds, : No Renal angle tenderness; EXTREMITIES: No edema, no clubbing, MUSCULOSKELETAL: no muscle wasting NEURO: Awake; no lateralizing signs. SKIN: No Rash PSYCH; Flat affect Assessment & Plan Assessment/Plan (1) CVA (cerebrovascular accident): QUALIFIERS: CVA mechanism: unspecified Qualified Code(s): I63.9 - Cerebral infarction, unspecified PLAN: Plan Patient is a 79-year-old gentleman who was brought to the emergency department with decreased oral intake CT of the head obtained on admission demonstrated-dense in the right parietal occipital lobe concerning for acute/subacute CVA admitted to a monitored bed for further management 1. 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 Admitted to a monitored bed for subsequent management. Acute ischemic CVA confirmed on MRI 2D echo demonstrated EF of 55 to 60% with no evidence of PFO.MRA of the head there is a significant narrowing of the cavernous right internal carotid artery and right middle cerebral artery negative for any narrowing or obstruction in the neck. Patient remains on aspirin as well as atorvastatin 3. Paroxysmal atrial fibrillation ? Rate uncontrolled seen in consultation by cardiology patient was started on amiodarone which was discontinued following QTc prolongation. Patient remains on systemic anticoagulation with apixaban and is on rate control with metoprolol 3. Prolonged QTc ? After initiation of amiodarone offending medications discontinued, patient being monitored on continuous telemetry 4. Adrenal insufficiency ? Patient is on hydrocortisone did continue 5. 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 Currently in remission following chemo. Patient remains on immunotherapy currently and is followed by Dr. Liu with oncology 6. GERD ? Currently asymptomatic 7. Hypertension ? Blood pressure controlled, home medications continued with dose adjustment as needed 8. Dyslipidemia ?Patient is on statin therapy, continued at home dose 9. DVT prophylaxis ? Patient is on systemic anticoagulation with apixaban 10. MRSA UTI ? Patient was started on Bactrim blood cultures sent. Consult was placed to ID 11. Physical deconditioning ? Requested for PT OT eval and social media marketing specialist to assist with discharge planning Time spent in the patient's overall evaluation,decision-making process, review of diagnostic data, adjustment of management, discussion with other providers, nursing nursing and ancillary staff involved in patient's care documentation, 52 Minutes Charges/Coding Visit Charges Inpatient E&M: 27233 Rust Hosp L3
--- NOTE | 2024-12-14 12:04 | CASEMGMT ---
ANNALISE faxed all clinical information to [facility] to obtain authorization for Acute Rehab Unit. Marjan VIERA
[2024-12-14] MEDS: Hydrocortisone 10 MG Tablet 5 MG PO (12:29)
--- NOTE | 2024-12-14 12:30 | CASEMGMT ---
SW did not complete a PHQ 9 as patient is confused and unable to participate. Marjan West AERIAL ERECTOR AYLIN
--- NOTE | 2024-12-14 13:49 | CASEMGMT ---
ANNALISE received a call from Tesha with [employer] ([phone]). Tesha said that they now require a pre-screen from the rehab unit and the rehab physician has to sign off stating he is appropriate. ANNALISE notified Louise in Rehab admissions. Marjan West MSW AYLIN
--- NOTE | 2024-12-14 14:22 | CASEMGMT ---
ANNALISE faxed PT/OT notes to Tesha at [employer] per her request. Marjan West COMMERCIAL LENDING RELATIONSHIP MANAGER AYLIN
[2024-12-14] MEDS: Atorvastatin Calcium 40 MG Tablet PO (21:19)
[2024-12-14] MEDS: Mirtazapine 15 MG Tablet PO (21:19)
[2024-12-15 02:48] VITALS: BMI 23.6
[2024-12-15 03:13] VITALS: BP 120/93; PULSE 76; RESP 18; TEMP 36.9; O2SAT 97
[2024-12-15] MEDS: Levothyroxine 150 MCG Tablet PO (05:09)
[2024-12-15 08:45] VITALS: BP 102/53; PULSE 74; RESP 16; TEMP 37.2; O2SAT 97
[2024-12-15] MEDS: Hydrocortisone 10 MG Tablet GT (09:04)
[2024-12-15] MEDS: Aspirin 81 MG TAB.CHEW PO (09:04)
[2024-12-15] MEDS: Furosemide 20 MG Tablet PO (09:04)
[2024-12-15] MEDS: APIXABAN 5 MG TABLET PO (09:04)
[2024-12-15] MEDS: Nitrofurantoin Macrocrystals 100 MG Capsule PO (09:08)
--- NOTE | 2024-12-15 09:51 | PN.HOSP_ITS ---
Reason for Visit Reason for Visit: Diagnoses Unspecified atrial fibrillation (12/10/24) Cerebral infarction, unspecified (12/10/24) Subjective Subjective Patient seen plan is for patient to be discharged to the inpatient rehab unit patient is however tachycardic with heart rates in the 130s this was after patient had participated in physical therapy. Patient yet to receive a.m. beta- blockers. Will reassess around noon regarding possible discharge based on the heart rate Objective Data Objective Data Vital Signs: Vital Signs Temp Pulse Resp BP Pulse Ox O2 Del Method O2 Flow Rate 99 F 74 16 102/53 L 97 Room Air 2 12/15/24 08:45 12/15/24 08:45 12/15/24 08:45 12/15/24 08:45 12/15/24 08:45 12/15/24 08:45 12/13/24 16:00 Oxygen Flow Rate (L/min) 2 Oxygen Delivery Method Room Air Weight: 66.542 kg Body Mass Index (BMI) 23.6 Intake & Output: Intake and Output for Last 24 Hours 12/13/24 12/14/24 12/15/24 23:59 23:59 23:59 Intake Total 2200.00 / 2300.00 460 / 460 60 / 60 Output Total 800 / 875 75 / 75 Balance 1400.00 / 1425.00 385 / 385 60 / 60 Lab / Micro Data 12/14/24 04:17 12/14/24 04:17 Micro: Microbiology 12/12/24 08:44 Blood Culture (Wb) - Anticubital Right Blood Culture - Preliminary No growth in 48 hours. 12/12/24 08:50 Blood Culture (Wb) - Right Wrist Blood Culture - Preliminary No growth in 48 hours. 12/10/24 14:30 Urine, Random Urine Culture - Final Meth. resistant Staph. aureus 12/10/24 13:59 Mucosa - Nose SARS-CoV-2, Influenza & RSV (PCR) - Final Rhythm Strip Rhythm Strip: Sinus Rhythm Rate: 60 Physical Exam Narrative GENERAL: cooperative but appears tired HEENT: Atraumatic; normocephalic EYES; Anicteric, Normal Conjunctiva NECK; supple, normal thyroid, RESPIRATORY: Diminished to auscultation CARDIOVASCULAR: Irregularly irregular, tachycardic GI: soft, normoactive bowel sounds, : No Renal angle tenderness; EXTREMITIES: No edema, no clubbing, MUSCULOSKELETAL: no muscle wasting NEURO: Awake; no lateralizing signs. SKIN: No Rash PSYCH; Flat affect Assessment & Plan Assessment/Plan (1) CVA (cerebrovascular accident): QUALIFIERS: CVA mechanism: unspecified Qualified Code(s): I63.9 - Cerebral infarction, unspecified PLAN: Plan Patient is a 79-year-old gentleman who was brought to the emergency department with decreased oral intake CT of the head obtained on admission demonstrated- dense in the right parietal occipital lobe concerning for acute/subacute CVA admitted to a monitored bed for further management 1. 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 Admitted to a monitored bed for subsequent management. Acute ischemic CVA confirmed on MRI 2D echo demonstrated EF of 55 to 60% with no evidence of PFO.MRA of the head there is a significant narrowing of the cavernous right internal carotid artery and right middle cerebral artery negative for any narrowing or obstruction in the neck. Patient remains on aspirin as well as atorvastatin 3. Paroxysmal atrial fibrillation ? Rate uncontrolled seen in consultation by cardiology patient was started on amiodarone which was discontinued following QTc prolongation. Patient remains on systemic anticoagulation with apixaban and is on rate control with metoprolol ? 12/15/2024; patient is tachycardic with heart rates in the 130s this was after patient had participated in physical therapy. Patient yet to receive a.m. beta- blockers. Will reassess around noon regarding possible discharge based on the heart rate 3. Prolonged QTc ? After initiation of amiodarone offending medications discontinued, patient being monitored on continuous telemetry 4. Adrenal insufficiency ? Patient is on hydrocortisone did continue 5. 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 Currently in remission following chemo. Patient remains on immunotherapy currently and is followed by Dr. Liu with oncology 6. GERD ? Currently asymptomatic 7. Hypertension ? Blood pressure controlled, home medications continued with dose adjustment as needed 8. Dyslipidemia ?Patient is on statin therapy, continued at home dose 9. DVT prophylaxis ? Patient is on systemic anticoagulation with apixaban 10. MRSA UTI ? Patient was started on Bactrim blood cultures sent. Consult was placed to ID 11. Physical deconditioning ? Requested for PT OT eval and social group worker to assist with discharge planning Time spent in the patient's overall evaluation,decision-making process, review of diagnostic data, adjustment of management, discussion with other providers, nursing nursing and ancillary staff involved in patient's care documentation, 35 minutes
[2024-12-15 09:54] VITALS: BP 102/53; PULSE 74
[2024-12-15] MEDS: Metoprolol(XL)Succ 25 MG Tablet PO (09:54)
--- NOTE | 2024-12-15 09:56 | CASEMGMT ---
Social Work PT has been approved to discharge to [facility]. Physician updated. KALLIE Adorno
--- NOTE | 2024-12-15 10:38 | CON.PCM.ID_ITS ---
Assessment & Plan Assessment/Plan (1) CVA (cerebrovascular accident): QUALIFIERS: CVA mechanism: unspecified Qualified Code(s): I63.9 - Cerebral infarction, unspecified (2) MRSA infection: PLAN: Ucx with MRSA. Bcx x2 remain neg. On macrobid, asymptomatic. Plan on 7 days total. Will follow, thank you HPI Consult Data Date of Consult: 12/15/24 HPI Narrative Reason for Consultation: uti HPI Narrative: RAJAN ROSEN, is a 79 M who presented 12/10 with several days decreased po intake, lethargy. Found to have stroke. Has h/o afib. Denies fever, chills, dysuria, urine changes, abd pain, weakness. Full ROS performed and neg except as noted above. [facility] Medical History Constipation Encounter for antineoplastic immunotherapy Atrial fibrillation with RVR Wears glasses History of steroid therapy High cholesterol Gastric reflux Non-smoker Shortness of breath on exertion History of edema History of echocardiogram History of rheumatic fever Hypertension Cardiology follow-up encounter Dehydration Adrenal insufficiency Weakness Elevated bilirubin Hyponatremia Imbalance Nausea Thrombocytopenia Pleural effusion, bilateral Stomatitis Drug induced neutropenia Impaired glucose tolerance Encounter for chemotherapy management Edema of extremities Atherosclerotic heart disease of [place] coronary artery without angina pectoris Bilateral lower leg cellulitis Nonrheumatic aortic (valve) stenosis Obesity Elevated liver enzymes Essential (primary) hypertension Chemotherapy management, encounter for Bacteremia (12/21/19) Rash Hoarseness of voice Encounter for adjustment and management of vascular access device Immunotherapy encounter Anemia Localized swelling, mass and lump, neck Encounter for education Hypothyroidism HLD (hyperlipidemia) Non-small cell carcinoma of lung Pneumothorax, left Primary lung cancer 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 Home Medications ?Medication ?Instructions ?Recorded ?Last Taken ?Type Handicap Placard #1 ea 07/30/23 Unknown Rx levothyroxine 150 mcg tablet 150 mcg PO QDAY thyroid # 90 tabs 09/01/24 Unknown Rx atorvastatin 40 mg tablet 40 mg PO QHS cholesterol Unknown History hydrocortisone 5 mg tablet 5 mg PO 1300 adrenal gland 10/25/24 Unknown History hydrocortisone 5 mg tablet 10 mg PO .am adrenal gland 10/25/24 Unknown History apixaban 5 mg tablet (Eliquis) 5 mg PO BID 30 days #60 tabs 10/27/24 Unknown Rx furosemide 20 mg tablet (Lasix) 20 mg PO DAILY 1 month #30 tabs 10/27/24 Unknown Rx metoprolol succinate 50 mg 50 mg PO DAILY 30 days #0 t abs 10/27/24 Unknown Rx tablet,extended release 24 hr mirtazapine 15 mg tablet 7.5 mg PO QHS Mood 11/09/24 Unknown History Allergy/AdvReac Type Severity Reaction Status Date / Time No Known Allergies Allergy Verified 11/30/24 08:43 Family History Uncle Cancer Mother CVA (cerebral vascular accident) Surgical History Hx of colonoscopy History of vascular access device History of left heart catheterization (04/29/21) Hx of lymph node biopsy History of tonsillectomy and adenoidectomy History of wisdom tooth extraction Social History housing: house Smoking Status: Never smoker second hand exposure: No alcohol intake: never substance use type: does not use caffeine: Yes what type of physical activity do you participate in: none frequency: does not exercise Physical Exam Const alert and no apparent distress General Appearance: cooperative HEENT normocephalic and head/scalp atraumatic Eyes PERRL and EOMs intact bilaterally Neck supple and No nodes Resp normal air movement and clear to auscultation bilaterally Cardio Negative for regular rate or regular rhythm GI soft to palpation, non-tender and non-distended Extremity General Extremity: Negative for edema Skin no rashes or lesions noted Neuro CN's II-XII intact bilaterally Lab / Micro Data Attestation: I reviewed the patient's lab results. 12/14/24 04:17 12/14/24 04:17 Micro: Microbiology 12/12/24 08:44 Blood Culture (Wb) - Anticubital Right Blood Culture - Preliminary No growth in 48 hours. 12/12/24 08:50 Blood Culture (Wb) - Right Wrist Blood Culture - Preliminary No growth in 48 hours. Rhythm Strip Rhythm Strip: Sinus Rhythm Rate: 60
--- NOTE | 2024-12-15 11:07 | PCM.DC.SUM ---
Providers Date of Admission: 12/10/24 Date of Discharge: 12/15/24 Primary Care Physician: Dr. Lisandro Zaldivar MD Consultations 12/13/24 09:11 Consult: Cardiology Routine Consulting Provider: Sumit Morfin Reason for Consult: Afib/RVR EMERGENT Consult: No Notified: Yes Date Notified: 12/13/24 Time Notified: 09:23 Method of Notification: Text 12/14/24 11:35 Consult: Infectious Disease Routine Consulting Provider: Bala Smith Reason for Consult: MRSA UTI EMERGENT Consult: No Notified: Yes Date Notified: 12/14/24 Time Notified: 11:38 Method of Notification: Text Reason For Visit: CVA Diagnosis Discharge Diagnosis (1) CVA (cerebrovascular accident): Status: Acute Code(s): I63.9 - Cerebral infarction, unspecified Qualifiers: CVA mechanism: unspecified Qualified Code(s): I63.9 - Cerebral infarction, unspecified (2) MRSA infection: Status: Acute Code(s): A49.02 - Methicillin resistant Staphylococcus aureus infection, unspecified site Plan Patient is a 79-year-old gentleman who was brought to the emergency department with decreased oral intake CT of the head obtained on admission demonstrated-dense in the right parietal occipital lobe concerning for acute/subacute CVA admitted to a monitored bed for further management 1. 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 Admitted to a monitored bed for subsequent management. Acute ischemic CVA confirmed on MRI 2D echo demonstrated EF of 55 to 60% with no evidence of PFO.MRA of the head there is a significant narrowing of the cavernous right internal carotid artery and right middle cerebral artery negative for any narrowing or obstruction in the neck. Patient remains on aspirin as well as atorvastatin 3. Paroxysmal atrial fibrillation ? Rate uncontrolled seen in consultation by cardiology patient was started on amiodarone which was discontinued following QTc prolongation. Patient remains on systemic anticoagulation with apixaban and is on rate control with metoprolol ? 12/15/2024; patient is tachycardic with heart rates in the 130s this was after patient had participated in physical therapy. Patient yet to receive a.m. beta-blockers. Will reassess around noon regarding possible discharge based on the heart rate 3. Prolonged QTc ? After initiation of amiodarone offending medications discontinued, patient being monitored on continuous telemetry 4. Adrenal insufficiency ? Patient is on hydrocortisone did continue 5. 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 Currently in remission following chemo. Patient remains on immunotherapy currently and is followed by Dr. Liu with oncology 6. GERD ? Currently asymptomatic 7. Hypertension ? Blood pressure controlled, home medications continued with dose adjustment as needed 8. Dyslipidemia ?Patient is on statin therapy, continued at home dose 9. DVT prophylaxis ? Patient is on systemic anticoagulation with apixaban 10. MRSA UTI ? Patient was started on Bactrim blood cultures sent. Consult was placed to ID ? ID recommended treatment with Macrobid for total of 7 days 11. Physical deconditioning ? Requested for PT OT eval and medical social consultant to assist with discharge planning Time spent in the patient's overall evaluation,decision-making process, review of diagnostic data, adjustment of management, discussion with other providers, nursing nursing and ancillary staff involved in patient's care documentation, 35 minutes Medications at Discharge Home Medications Handicap Placard #1 ea 07/30/23 levothyroxine 150 mcg tablet 150 mcg PO QDAY thyroid #90 tabs 09/01/24 atorvastatin 40 mg tablet 40 mg PO QHS cholesterol 10/25/24 hydrocortisone 5 mg tablet 5 mg PO 1300 adrenal gland 10/25/24 hydrocortisone 5 mg tablet 10 mg PO .am adrenal gland 10/25/24 apixaban 5 mg tablet (Eliquis) 5 mg PO BID 30 days #60 tabs 10/27/24 furosemide 20 mg tablet (Lasix) 20 mg PO DAILY 1 month #30 tabs 10/27/24 mirtazapine 15 mg tablet 7.5 mg PO QHS Mood 11/09/24 aspirin 81 mg chewable tablet 81 mg PO BREAKFAST #0 tabs 12/15/24 food supplemt, lactose-reduced 0.08 gram-1.5 kcal/mL oral liquid (Ensure Plus High Protein) 120 ml PO TIDCM #0 mL 12/15/24 lidocaine HCl 2 % mucosal solution (Lidocaine Viscous) 10 ml PO Q3H PRN PRN MOUTH IRRITATION #0 mL 12/15/24 metoprolol succinate 25 mg tablet,extended release 24 hr 25 mg PO BID #0 tabs 12/15/24 nitrofurantoin monohydrate/macrocrystals 100 mg capsule 100 mg PO BID 5 days #0 caps 12/15/24 saliva substitute combo no.9 (Biotene Dry Mouth Oral Rinse mouthwash) 15 ml mucous membrane 5X/DAY PRN Dry Mouth #0 mL 12/15/24 Physical Exam Narrative GENERAL: cooperative but appears tired HEENT: Atraumatic; normocephalic EYES; Anicteric, Normal Conjunctiva NECK; supple, normal thyroid, RESPIRATORY: Diminished to auscultation CARDIOVASCULAR: Irregularly irregular, tachycardic GI: soft, normoactive bowel sounds, : No Renal angle tenderness; EXTREMITIES: No edema, no clubbing, MUSCULOSKELETAL: no muscle wasting NEURO: Awake; no lateralizing signs. SKIN: No Rash PSYCH; Flat affect Weight / BMI Weight Weight: 66.542 kg Body Mass Index (BMI) 23.6 ABG / Lab / Microbiology Data 12/14/24 04:17 12/14/24 04:17 Microbiology: Microbiology 12/12/24 08:44 Blood Culture (Wb) - Anticubital Right Blood Culture - Preliminary No growth in 48 hours. 12/12/24 08:50 Blood Culture (Wb) - Right Wrist Blood Culture - Preliminary No growth in 48 hours. 12/10/24 14:30 Urine, Random Urine Culture - Final Meth. resistant Staph. aureus 12/10/24 13:59 Mucosa - Nose SARS-CoV-2, Influenza & RSV (PCR) - Final D/C Instructions Discharge Diet: No restrictions Discharge Activity: Return to Normal Activity Call your doctor if you observe: Fever of 101 or Higher, Shortness of breath, Fainting spells and Chest pain DC O2, CPAP, BIPAP Needs Home O2 Discharge instructions: No Meaningful Use Info Meaningful Use Meaningful Use Diagnoses (Choose all that apply): Ischemic CVA CVA Therapy Assessed for PT,OT and/or ST?: Yes Ischemic Stroke Antithrombotic order at d/c?: Yes Dx of Atrial fib/flutter?: Yes Anticoagulant at discharge?: Yes Statin Dosing Therapy Reference: STATIN DOSE THERAPY REFERENCE: * Patients > 75 years receive moderate or high dose statin therapy. * Patients 75 years or YOUNGER should receive HIGH intensity statin dose unless contraindicated. You will be required to document reason for non-treatment if statin daily dose does not meet guidelines. HIGH DOSE STATIN THERAPY DAILY Atorvastatin > than or = to 40 mg Rosuvastatin > than or = to 20 mg Amlodipine + Atorvastatin > than or = to 2.5/40 mg Ezetimibe + Simvastatin 10/80 mg Simvastatin 80mg Statins at discharge?: Yes Primary Dx Acute Ischemic CVA?: Yes IV thrombolytic ordered during stay?: No Reason IV thrombolytic not ordered: Treatment not Indicated Discharge Plan Admission Admit Date/Time: 12/10/24 15:48 Attending Provider: Dean Wiley Primary Care Provider: Lisandro Zaldivar Consulting Providers: Felton Brown; Sumit Morfin; Edvin Godwin; Bala Smith Discharge Orders/Prescriptions Prescriptions: New aspirin 81 mg Tablet,Chewable 81 mg PO BREAKFAST Qty: 0 0RF lidocaine HCl [Lidocaine Viscous] 2 % Solution 10 ml PO Q3H PRN PRN (Reason: MOUTH IRRITATION) Qty: 0 0RF metoprolol succinate 25 mg Tablet Extended Release 24 Hr 25 mg PO BID Qty: 0 0RF nitrofurantoin monohyd/m-cryst 100 mg Capsule 100 mg PO BID 5 Days Qty: 0 0RF Biotene Dry Mouth Oral Rinse Mouthwash 15 ml mucous membrane 5X/DAY PRN (Reason: Dry Mouth) Qty: 0 0RF Ensure Plus High Protein 0.08 gram-1.5 kcal/mL Liquid 120 ml PO TIDCM Qty: 0 0RF Continued levothyroxine 150 mcg tablet 150 mcg PO QDAY Qty: 90 3RF mirtazapine 15 mg tablet 7.5 mg PO QHS atorvastatin 40 mg tablet 40 mg PO QHS hydrocortisone 5 mg tablet 10 mg PO .am Rx Instructions: take 10mg at 8am 5mg at 1300 hydrocortisone 5 mg tablet 5 mg PO 1300 Patient Comments: 5mg at 1300 10 mg in am Rx Instructions: adrenal gland Eliquis 5 mg Tablet 5 mg PO BID 30 Days Qty: 60 2RF furosemide [Lasix] 20 mg tablet 20 mg PO DAILY 30 Days Qty: 30 0RF (DME) Handicap Placard See Rx Instructions .Route .MEDSUPPLY Qty: 1 0RF Rx Instructions: As directed Discontinued metoprolol succinate 50 mg Tablet Extended Release 24 Hr 50 mg PO DAILY 30 Days Qty: 0 2RF Referrals / Follow Up: Lisandro Zaldivar MD [Primary Care Provider] - Within 2 Weeks Disposition Disposition (needs filled in before D/C Order can be placed): Inpatient Rehab Unit/Facility Charges/Coding Visit Charges Inpatient E&M: 87081 Disch Hosp >30min
[2024-12-15 11:25] VITALS: BP 102/53; PULSE 74; RESP 16; TEMP 37.2; O2SAT 97
--- NOTE | 2024-12-15 11:31 | CASEMGMT ---
Social Work Per physician, pt is ready for discharge to today. SW met with pt's dgt and updated on plan. Pt's dgt with concerns regarding pt medical issues. SW updated pt bedside nurse. Discharge Disposition: [facility] Inpatient Rehab KALLIE Adorno
[2024-12-15 11:35] VITALS: BP 109/64; PULSE 85; RESP 18; TEMP 37.7; O2SAT 95
--- NOTE | 2024-12-15 12:00 | NURSING ---
Report called to nurse Anne for pt to be d/c to Rehab unit.
== END 2024-12-15 13:39 | DRG 64 ==
LOC: ED 15:04 → PCU 16:03
PROVIDERS: Family Medicine; Nurse Practitioner; Emergency Provider Emergency Medicine; PCP Family Medicine; Visit Provider Internal Medicine
DX: I63.89 Other cerebral infarction (principal); G93.41 Metabolic encephalopathy; E27.40 Unspecified adrenocortical insufficiency; N39.0 Urinary tract infection, site not specified; G83.14 Monoplegia of lower limb affecting left nondominant side; I66.01 Occlusion and stenosis of right middle cerebral artery; I48.0 Paroxysmal atrial fibrillation; I10 Essential (primary) hypertension; I65.21 Occlusion and stenosis of right carotid artery; E78.00 Pure hypercholesterolemia, unspecified; I25.10 Atherosclerotic heart disease of native coronary artery without angina pectoris; K21.9 Gastro-esophageal reflux disease without esophagitis; I95.9 Hypotension, unspecified; R68.2 Dry mouth, unspecified; R29.700 NIHSS score 0; B95.62 Methicillin resistant Staphylococcus aureus infection as the cause of diseases classified elsewhere; R53.1 Weakness; Z79.01 Long term (current) use of anticoagulants; Z79.890 Hormone replacement therapy; Z79.899 Other long term (current) drug therapy; Z92.21 Personal history of antineoplastic chemotherapy; Z85.118 Personal history of other malignant neoplasm of bronchus and lung; R29.702 NIHSS score 2; R94.31 Abnormal electrocardiogram [ECG] [EKG]
CPT/HCPCS: 36415; 70450; 70544; 70547; 70551; 71045; 74230; 80048; 80053; 80061; 81001; 82607; 82747; 84443; 84484; 85014; 85025; 87040; 87077; 87086; 87088; 87186; 87631; 92523; 92610; 92611; 93005; 93308; 94762; 97116; 97162; 97166; 97530; 97535; 99283; A4216

== ENCOUNTER 2024-12-15 14:02 | Inpatient (IN) | payer MEDICARE, SELFPAY ==
[2024-12-15 14:30] VITALS: BP 131/61; PULSE 73; RESP 17; TEMP 36.7; O2SAT 96
--- NOTE | 2024-12-15 14:51 | HP.PCM_ITS ---
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 Noncontrast brain CT showed a hypodense region in the right parietal occipital lobe concerning for acute to subacute ischemic infarct. . Labs showed an elevated white blood cell count at 14.2 with a hemoglobin of 11.4. The BUN was 25 with a creatinine of 0.85. UA showed 5-10 WBCs per high-power field with +1 bacteria. He was not a candidate for TNK since his last known well was unknown and he was taking apixaban. He was admitted to the hospitalist service for ischemic CVA. Teleneurology was consulted. His NIHSS was 2 for mild aphasia and mild dysarthria. His family noted that his mentation was off and he was having trouble with word finding. MRI of the brain showed right mid and posterior temporal ischemic stroke. MRA of the head and neck showed significant narrowing of the cavernous right internal carotid artery and right middle cerebral artery. The neurologist recommended continuing aspirin along with Eliquis and a statin. Transthoracic echocardiogram showed left ventricular ejection fraction of 55 to 60% with inferior hypokinesis. Both atria were of normal size. The bubble contrast study was negative for PFO/ASD. He had severe mitral annular calcification and the aortic valve was not well-visualized. He was in NSR at admission to the hospital but, he had a period of atrial fibrillation with rapid ventricular response and was seen by cardiology. He did not tolerate Diltiazem due to hypotension and and amiodarone infusion was started. He converted to NSR. The urine culture ordered at admission grew MRSA and ID was consulted. they recommended nitrofurantoin for 7 days total. He was seen by PT/OT/ST while in the hospital and acute rehab was recommended at [place]. He was transferred to the acute inpt rehab unit at [facility] on 12/15/24 for 3 hours of therapy daily to restore function/independence at or near his level prior to the stroke. Cheryl's biggest complaint at the time of arrival on rehab was a very sore mouth that had started a few months prior. He had tried various treatments including Diflucan, Nystatin, magic mouth was without any improvement. He had a course of Prednisone and this is the only thing that seemed to help him out. At the conclusion of the taper the sx recurred. His family relates that he has lost a lot of weight recently because his mouth hurts so much he has not been able to eat of drink. His wt on 11/09/24 was 160 lbs and at admission to rehab the wt is 147 lbs. on 09/01/2024 he weighed 170 pounds and 6 ounces. [facility] Medical History (Updated 12/16/24 @ 14:[address] Nidhi Bradshaw, DO) Anemia of chronic disease Constipation Encounter for antineoplastic immunotherapy Atrial fibrillation with RVR Wears glasses History of steroid therapy High cholesterol Gastric reflux Non-smoker Shortness of breath on exertion History of edema History of echocardiogram History of rheumatic fever Hypertension Cardiology follow-up encounter Dehydration Adrenal insufficiency Weakness Elevated bilirubin Hyponatremia Imbalance Nausea Thrombocytopenia Pleural effusion, bilateral Stomatitis Drug induced neutropenia Impaired glucose tolerance Encounter for chemotherapy management Edema of extremities Atherosclerotic heart disease of [place] coronary artery without angina pectoris Bilateral lower leg cellulitis Nonrheumatic aortic (valve) stenosis Obesity Elevated liver enzymes Essential (primary) hypertension Chemotherapy management, encounter for Bacteremia (12/21/19) Rash Hoarseness of voice Encounter for adjustment and management of vascular access device Immunotherapy encounter Localized swelling, mass and lump, neck Encounter for education Hypothyroidism HLD (hyperlipidemia) Non-small cell carcinoma of lung Pneumothorax, left Primary lung cancer 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 Home Medications ?Medication ?Instructions ?Recorded ?Last Taken ?Type Handicap Deepika #1 ea 07/30/23 Unknown Rx atorvastatin 40 mg tablet 40 mg PO QHS cholesterol 12/14/24 History hydrocortisone 5 mg tablet 5 mg PO 1300 adrenal gland 10/25/24 12/15/24 History hydrocortisone 5 mg tablet 10 mg PO .am adrenal gland 10/25/24 12/15/24 History apixaban 5 mg tablet (Eliquis) 5 mg PO BID AFIB 30 day s #60 tabs 10/27/24 12/15/24 Rx furosemide 20 mg tablet (Lasix) 20 mg PO DAILY fluid 1 month #30 10/27/24 12/15/24 Rx tabs mirtazapine 15 mg tablet 7.5 mg PO QHS Mood 11/09/24 12/14/24 History aspirin 81 mg chewable tablet 81 mg PO BREAKFAST heart health #0 12/15/24 12/15/24 Rx tabs food supplemt, lactose-reduced 120 ml PO TIDCM supplem ent #0 mL 12/15/24 12/15/24 Rx 0.08 gram-1.5 kcal/mL oral liquid (Ensure Plus High Protein) levothyroxine 150 mcg tablet 150 mcg PO DAILY thyroid 12/15/24 12/15/24 History metoprolol succinate 25 mg 25 mg PO BID blood pressure #0 tabs 12/15/24 12/15/24 Rx tablet,extended release 24 hr nitrofurantoin 100 mg PO BID UTI 5 days #0 caps 12/15/24 12/15/24 Rx monohydrate/macrocrystals 100 mg capsule saliva substitute combo no.9 15 ml mucous membrane 5X/ DAY PRN 12/15/24 Unknown Rx (Biotene Dry Mouth Oral Rinse Dry Mouth #0 mL mouthwash) Allergy/AdvReac Type Severity Reaction Status Date / Time No Known Allergies Allergy Verified 11/30/24 08:43 Family History Uncle Cancer Mother CVA (cerebral vascular accident) Surgical History Hx of colonoscopy History of vascular access device History of left heart catheterization (04/29/21) Hx of lymph node biopsy History of tonsillectomy and adenoidectomy History of wisdom tooth extraction Social History housing: house Smoking Status: Former smoker second hand exposure: No alcohol intake: never substance use type: does not use caffeine: Yes what type of physical activity do you participate in: none frequency: does not exercise ROS Review of Systems ROS Unobtainable: Denies due to encephalopathy, due to endotracheal tube, due to mental condition or due to mental status Constitutional Constitutional: Reports anorexia, change in weight, fatigue, weakness and weight loss; Denies chills, fever(s) or night sweats Eyes Eyes: Reports burning and discharge from eye(s); Denies blurry vision, change in vision, eye pain or loss of vision ENT HEENT: Reports dry mouth and other Details: severe pain in his mouth with eating and drinking. Denies heartburn or painful swallowing. ; Denies abnormal hearing, dysphagia, headache(s), hearing loss, nasal congestion or sore throat Cardiovascular Cardiovascular: Reports edema and lightheadedness; Denies chest pain, dizziness, dyspnea on exertion, orthopnea, palpitations, paroxysmal nocturnal dyspnea or syncope Respiratory/Chest Respiratory/Chest: Denies cough, dyspnea, shortness of breath at rest, shortness of breath with exertion or wheezing Gastrointestinal Gastrointestinal: Denies abdominal pain, constipation, diarrhea, dyspepsia, fecal incontinence, heartburn, hematemesis, hematochezia, nausea or vomiting Genitourinary Genitourinary: Denies dysuria, hematuria, nocturia, urinary frequency, urinary hesitancy, urinary incontinence or urinary urgency Musculoskeletal Musculoskeletal: Denies back pain, joint pain, joint swelling or neck pain Neurologic Neurologic: Reports confusion, weakness and other Details: trouble with memory and word finding. ; Denies disequilibrium, dizziness, focal weakness, headache(s), paresthesias, seizures or tremor(s) Psychiatric Psychiatric: Reports depression and other Details: was started on Remeron to help with appetite per family.........it is not sop much decreased appetite as severe mouth pain with eating and drinking that is leading to decreased intake. ; Denies anxiety, homicidal ideation or suicidal ideation Endocrine Endocrinology: Reports change in body appearance; Denies polydipsia or polyuria Hematologic/Lymphatic Hematologic/Lymphatic: Reports easy bleeding and easy bruising; Denies lymphadenopathy Allergic/Immunologic Allergic/Immunologic: Denies rhinitis, eczemia or asthma Indicators for Scoring Admitted with or Primary Diagnosis of CVA/Stroke: Yes Hx of CVA/Stroke: Yes Modified [place] Score MRS Score at time of Evaluation: 4-Moderate/severe disability NIHSS NIHSS 1a. Level of Consciousness: Alert; keenly responsive 1b. LOC Questions: Answers BOTH questions correctly. 1c. LOC Commands: Performs both tasks correctly. 2. Best Gaze: Normal 3. Visual: No visual loss 4. Facial Palsy: Normal symmetrical movements 5a. Left Arm: No drift; arm holds 90 (or 45) degrees for full 10 seconds 5b. Right Arm: No drift; arm holds 90 (or 45) degrees for full 10 seconds 6a. Left Leg: No drift; leg holds 30-degree position for full 5 seconds 6b. Right Leg: No drift; leg holds 30-degree position for full 5 seconds 7. Limb Ataxia: Absent 9. Best Language: [id number] aphasia; (word finding difficulties and some anomia.....family has noticed slowed thought processes since the stroke. ) 10. Dysarthria: [id number] dysarthria; 11. Extinction and Inattention: No abnormality Total: 2 Stroke Questions Stroke Team Activated: No (pt is post stroke and admitted to acute inpt rehab) Physical Exam Const alert General Appearance: cooperative HEENT normocephalic and head/scalp atraumatic HEENT Narrative: he has a dry papular pink rash on top of the head that he does not remember having.......will question family. The palpebral conjunctiva and lid margins are very erythematous and he has a watery discharge. The lips are very dry and cracked with some scabs. The buccal mucosa is very erythematous and the gums are also very red and inflamed around his teeth. I see a few small erosions on the buccal mucosa. No mary jo reticular pattern noted on the buccal mucosa. The tongue and mouth are very painful and the pain gets worse with acid containing foods, spicy foods and hot foods. Eyes PERRL and EOMs intact bilaterally Eyes Narrative: lid margins are very erythematous and there is DC from the eyes. Sclera is mostly white. Has had mattering of the eyelashes in the AM General Eye: normal light reflex Neck supple General: trachea midline Chest Chest: symmetrical chest wall rise Resp normal respiratory effort Resp Narrative: diminished BS's in the R base. No crackles or wheezes. Not coughing. Last thoracentesis was in October and his dtr tells me that he has had no malignant cells in the pleural fluid Effort and Inspection: able to speak in complete sentences Cardio regular rate, regular rhythm, S1 normal heart sound, S2 normal heart sound, no murmurs, no rub and no gallops Cardio Narrative: No ectopy Jugular Venous Distention: Negative for JVD GI normal to inspection, nondistended, normoactive bowel sounds, soft to palpation and non-tender GI Narrative: no guarding with palpation. Denies N/V/abd pain/diarrhea and constipation. no CVA tenderness Narrative: Uncircumcised. Glans is a little reddened. There is a milky white DC under the foreskin and coming from the urethra. The scrotum is reddened. He has a Depends on and it is wet. No excoriation in the folds of the groin. Denies pain in the scrotum. Denies burning with urination. There is a lot of old DC under the foreskin when the foreskin is retracted. Extremity no calf tenderness Extremity Narrative: Mild pitting edema of both ankles. No pretibial pitting edema. No clubbing and no cyanosis. Skin Skin Narrative: dry skin. Has a rash on the top of his head that is pink and scaly. Denies pain or pruritus. To his knowledge this rash is new. The perirectal are is erythematous and excoriated. I did not observe any openings in the skin. No decubitus ulcers observed. Neuro Neuro Narrative: See the NIHSS. Mild dysarthria and aphasia. No drift with any of the extremities. No extinction. No visual field buts. No ataxia. Some trouble focusing and some trouble with anomia. Psych Psych Narrative: flat affect. not restless or fidgety. Appears a bit overwhelmed. Not really anxious. Results Lab / Micro Data 12/16/24 05:41 12/16/24 05:41 Assessment & Plan Assessment/Plan (1) Physical debility: (2) Ischemic cerebrovascular accident (CVA): (3) Aphasia: (4) Dysarthria: (5) Oropharyngeal dysphagia: (6) Cognitive dysfunction: (7) Stomatitis: PLAN: Suspect Lichen Planus. The only medication that was effective was a prednisone taper and when discontinued the mouth came recurred. (8) Non-small cell carcinoma of lung: QUALIFIERS: Laterality: unspecified laterality Qualified Code(s): C34.90 - Malignant neoplasm of unspecified part of unspecified bronchus or lung (9) Essential (primary) hypertension: (10) HLD (hyperlipidemia): QUALIFIERS: Hyperlipidemia type: unspecified Qualified Code(s): E 78.5 - Hyperlipidemia, unspecified (11) Nonrheumatic aortic (valve) stenosis: (12) Atherosclerotic heart disease of [place] coronary artery without angina pectoris: QUALIFIERS: [place] vs. transplanted heart: [place] heart Qualified Code(s): I25.10 - Atherosclerotic heart disease of [place] coronary artery without angina pectoris (13) Anemia of chronic disease: PLAN: Lung CA (14) Atrial fibrillation with RVR: (15) Cystitis: PLAN: Due to MRSA. Seen by ID and is currently taking a 7 day course of Nitrofurantoin. (16) Adrenal insufficiency: PLAN: Follows with Dr. Butcher. (17) Dehydration: (18) Hypothyroidism: QUALIFIERS: Hypothyroidism type: unspecified Qualified Code(s): E 03.9 - Hypothyroidism, unspecified PLAN: Plan PLAN PT for gait stability OT for ADL's ST for evaluation Analgesics as needed Bowel protocol Fall precautions Assess for Anxiety/Depression GI prophylaxis -pantoprazole 20 mg twice daily as long as he is on prednisolone DVT prophylaxis with Eliquis 5 mg twice daily for DVT prophylaxis and paroxysmal atrial fibrillation Follow up with PCP, Dr. Liu, cardiology and Dr. Butcher] following DC from IP Rehab. May need to follow up with ENT or dermatology for suspected Lichen Planus. AM lab including CMP, CBC, Mag and Phos DC hydrocortisone and start prednisolone solution 15 mg 3 times daily - taper over the next month. Vanderbilt diet with no spicy food, very hot food, acidic foods. Pureed with thin liquids. DC viscous lidocaine due to dysphagia and increased risk of aspiration if we numb up the posterior pharynx. I am not sure he will be able to comply with swish and spit. Will discuss with AST tomorrow. there is no caustic operator available for consult for suspected lichen planus. I will reach out to ENT to see if this is something they treat and consider reaching out to dentistry. Family tells me that the only thing that seems to have made any difference in the mouth pain, erythema and cracked lips is a 10 day taper of Prednisone. Magic mouthwash, Nystatin swish and swallow and Diflucan had no effect. Continue Macrobid for MRSA UTI......I reviewed the ID note. CREAT has been climbing and his family tells me that he is barely drinking anything because his mouth hurts so much. Strongly encouraged him to continuously sip water. Await the results of the AM lab........may need IV fluids to hydrate. He is taking Lasix 20 mg daily in addition to not drinking. Continue Biotene PRN [place]bilt diet Charges/Coding Visit Charges Inpatient E&M: 34141 Init Hosp L3
[2024-12-15 15:34] VITALS: BMI 23.8
--- NOTE | 2024-12-15 16:27 | REHABEVAL_ITS ---
Admission Information Primary Diagnosis:: Poststroke debility Status Changes from Prescreening?: No changes Identified Actual Problem List:: Infection, UTI, Pain, ALteration in Cmfrt, Cognitve Impr/Memory Loss, Depression, Alteration in Nutrition, Mobility Impaired, Self Care Deficit, Fluid Change-Dehydration and Alteration-Leisure Activ. Potential Problem List:: DVT, Bleeding, Infection, UTI, Aspiration, Falls, Skin Integrity and Depression Risk of Complications DVT: NATALIA Hose and - (Continue Eliquis 5 mg twice daily) Bleeding: Monitor Lab Values, Nursing to Teach Precautions for anti-coagulation therapy., Wound, if applicable, to be assessed every shift. and Stroke patients assessed for lethargy or change in status. Infection: Clinical Staff to Monitor for S/S of infection: and S/S of infection include fever, redness, warmth, etc. Urinary Tract Infection: Monitor for frequency, burning, discomfort, or incontinence. and Nursing will obtain urine sample for urinalysis and C&S when ordered. Aspiration: Clinical staff will monitor for coughing, drooling, congestion., Speech will evaluate swallowing and dsyphasia. and Nursing will monitor patient swallowing during meals. Falls: Patient will be evaluated for Fall Precautions and Patient will be placed on Fall Precautions as indicated per protocol. Skin Breakdown: Nursing will assess skin daily using assessment tool. and Nursing will place on Skin Breakdown Precautions as indicated. Pain: Clinical staff will assess patient's pain level per protocol., Medications will be given, if needed, and the pain level reassessed. and Other methods: Massage, distraction, decrease stimulus, etc. used PRN. Plan of Care Patient requires physician specializing in physical medicine and rehab oversight to provide close medical supervision of rehab issues including: Pain Management, Sleep Problems, Bowel and Bladder, Medical and co-morbidity Management, DVT prophylaxis, Rehabilitation Leadership and Coordination of treatment team Patient needs Physical Therapy: For a minimum of 1 hour and At least 5 out of 7 days Patient needs Physical Therapy to improve:: Mobility, Strengthening, Transfers, Stretching, ROM, Endurance, Stairs, Gait and Balance Patient needs Occupational Therapy: For a minimum of 1 hour and At least 5 out of 7 days Patient needs Occupational Therapy to improve ADL's incl.: Eating, Grooming, Bathing, Dressing, Toileting, Toilet transfers, Community Reintegration, Higher functioning activities, Household tasks, Adaptive Equipment, Splinting and Other activities as determined Patient requires speech therapy: For a minimum of 1 hour and At least 5 out of 7 days Patient requires speech therapy for: Swallowing, Cognition, Language Skills and Compensatory Strategies Patient requires 24/ Rehabilitation Nursing for: Pain Issues, Identifying and preventing risk factors, Monitoring and reporting current medical conditions, Assisting with ambulation, transfer, and all ADL's, Teaching patients about disease process and medications, Family teaching, Providing safe environment, Bowel and Bladder Issues, Skin integrity and Medication Management Patient needs Director Medicare Sales/ Case Management for: Discharge Planning, Arranging Home Equipment or Services and Family Interventions Patient needs Dietary and Nutrition Services for: Adequate Nutrition, Nutritional Supplements and Nutritional Education Goals Goals Patient will remain: free from falls Patient will perform eating at: MOD I level of assist. Patient will perform bed mobility at: MOD I level of assist. Patient will complete transfers from bed to chair at: MOD I level of assist. Patient will ambulate: - (350 feet with least restrictive device or no device at mod I/independent on various surfaces) Patient will complete upper body dressing at: - (Supervision) Patient will complete lower body dressing at: - (Supervision with adaptive equipment as needed) Patient will complete toilet transfer at: - (Supervision) Patient will complete toileting at: - (Supervision) Patient will perform bathing at: - (Upper body bathing at set up and lower body bathing at supervision with adaptive equipment as necessary.) Patient will perform Tub/Shower transfer at: - (Supervision using DME as needed.) Patient will complete grooming at: - (Supervision while standing at the sink) Patient will achieve: - (2 steps with 2 handrails at standby assist to allow entry to his home.) Patient will have pain level of: of 3 or less Patient's skin will: remain intact Patient will receive: adequate nutrition. Discharge Planning Pt Prognosis for Sig. Practical Improv. w/in Reasonable Time: Good Estimated Length of stay (days): 21 Anticipated D/C Destination: Home with Outpt Therapy Was Preadmission Assessment Accurate?: Yes
--- NOTE | 2024-12-15 16:28 | CASEMGMT ---
Social Work SW met with pt, dtr Shelia and DAR, to complete initial assessment shortly after pt's arrival on unit. Introduced self and role. Family corroborated history and PLOF for pt. Dtr shared since October the 3 daughter's were taking turns staying overnight with pt, despite grandson living with him. About 2 weeks ago, the dtr's stopped and only stayed during the day. However, prior to October, pt was mod I and required no assistance. Pt was tending to grandson's needs. Family would cook meals and freeze them for pt. Family were discussing moving pt into AL in [place] closer to his two dtr's right before stroke. SW educated to AL vs SNF and OOP vs insurance coverage. SW to assist with DC planning, recommendations for DC and referral process to facilities, if needed. Family appreciative. SW educated to visiting hours and Team meetings held on . Educated to and provided brochure for stroke support group. Answered pt and family questions. Will continue to follow. Blaire Clark RETORT UNLOADER CONTAINER PACKER OPERATOR
--- NOTE | 2024-12-15 16:32 | CASEMGMT ---
Social Work SW requested family provide copies of pt's advance directives. damon Bass, reports dtr Elana, is HCPOA and DPOA. Elana has access to pt's bank accounts. Blaire Clark MSW CONTRACTS DIRECTOR
[2024-12-15] MEDS: prednisoLONE soln 5 MG/5 ML UDC 15 MG PO (16:42)
[2024-12-15] MEDS: Metoclopramide 5 MG TABLET PO (16:43)
[2024-12-15] MEDS: Ensure Plus High Protein 120 ML LIQUID PO (16:44)
[2024-12-15 18:00] VITALS: BP 131/61; PULSE 73; RESP 17; TEMP 36.7; O2SAT 98
[2024-12-15 20:36] VITALS: BMI 23.8
[2024-12-15 20:40] VITALS: BP 136/64; PULSE 71
[2024-12-15] MEDS: 0.9% Saline Lock 10 ML Syringe IV (20:41)
[2024-12-15] MEDS: Menthol/Lanolin/Calamine/Znox 113 GM Tube 1 APPLIC TOPICAL (20:42)
[2024-12-15] MEDS: Atorvastatin Calcium 40 MG Tablet PO (20:43)
[2024-12-15] MEDS: Nitrofurantoin Macrocrystals 100 MG Capsule PO (20:43)
[2024-12-15] MEDS: Nystatin Powder 15gm Bottle 1 APPLIC TOPICAL (20:43)
[2024-12-15] MEDS: APIXABAN 5 MG TABLET PO (20:43)
[2024-12-15 20:44] VITALS: BP 136/64; PULSE 71
[2024-12-15] MEDS: Mirtazapine 15 MG Tablet 7.5 MG PO (20:44)
[2024-12-15] MEDS: Metoprolol(XL)Succ 25 MG Tablet PO (20:44)
[2024-12-15] MEDS: Pantoprazole Sodium 20 MG Tablet PO (20:44)
[2024-12-15] MEDS: Senna/Docusate Sodium 1 Tablet 2 TABLET PO (20:44)
[2024-12-15 22:00] VITALS: RESP 15
[2024-12-16] MEDS: Nystatin Powder 15gm Bottle 1 APPLIC TOPICAL ×2 (04:49→22:27)
[2024-12-16] MEDS: Levothyroxine 150 MCG Tablet PO (04:49)
[2024-12-16] MEDS: Menthol/Lanolin/Calamine/Znox 113 GM Tube 1 APPLIC TOPICAL ×2 (04:50→22:33)
[2024-12-16 05:33] VITALS: BP 149/89; PULSE 80; RESP 16; TEMP 36.6; O2SAT 99
[2024-12-16 05:56] LABS: Absolute Lymphocyte Count 0.72 X10^3/uL (0.83-4.51); Absolute Neutrophil Count 9.3 X10^3/uL (2.0-7.7); Basophil# 0.02 X10^3/uL; Basophil% 0.2 % (0-1); Eosinophil# 0.01 X10^3/uL; Eosinophils% 0.1 % (0-5); Hematocrit 32.6 % (40-54); Hemoglobin 11.3 g/dL (13.0-16.5); Lymphocyte # 0.72 X10^3/ul (0.83-4.51); Lymphocyte % 6.7 % (19-41); Mean Corp Hgb Conc 34.7 g/dL (32-36); Mean Corpuscular Hgb 29.4 pg (27.0-32.0); Mean Corpuscular Volume 84.9 fL (80-94); Mean Platelet Vol. 8.6 fl (6.2-12.0); Monocyte# 0.62 X10^3/uL; Monocyte% 5.8 % (0-10); NRBC Flagged by Analyzer 0 % (0-5); Neutrophil # 9.27 X10^3/uL (2.7-7.7); Neutrophil % 86.9 % (47-70); Platelet Count 170 K/mm3 (150-450); RBC Distribution Width CV 13.3 % (11.6-14.6); RBC Distribution Width SD 41.1 fl (35.1-43.9); Red Blood Count 3.84 M/mm3 (4.6-6.2); White Blood Count 10.7 K/mm3 (4.4-11.0)
[2024-12-16 06:00] VITALS: BMI 23.7
[2024-12-16 08:13] LABS: AST(SGOT) 22 U/L (<=37); Alanine Aminotransfer ALT/SGPT 14 U/L (<=46); Albumin, Serum 3.1 g/dL (3.4-4.8); Alkaline Phosphatase 91 U/L (40-129); Anion Gap 15 (5-15); BUN 16 mg/dL (4-19); BUN/Creat Ratio 17.1 RATIO (10-20); Calcium,Total 8.2 mg/dL (7.6-11.0); Carbon Dioxide 22.8 mmol/L (21.0-32.0); Chloride 98 mmol/L (98-108); Creatinine, Serum 0.95 mg/dL (0.70-1.20); EST Glomerular Filtration Rate 82 (>60); Globulin 3.2 g/dL (2.2-4.2); Glucose 125 mg/dL (70-99); Magnesium 1.8 mg/dL (1.5-2.2); Potassium 3.9 mmol/L (3.3-5.1); Protein, Total 6.3 g/dL (5.9-8.4); Sodium Level 136 mmol/L (133-145); Total Bilirubin 0.75 mg/dL (0.00-1.30)
[2024-12-16] MEDS: Aspirin 81 MG TAB.CHEW PO (08:36)
[2024-12-16] MEDS: prednisoLONE soln 5 MG/5 ML UDC 15 MG PO ×3 (08:36→17:59)
[2024-12-16] MEDS: Pantoprazole Sodium 20 MG Tablet PO ×2 (08:38→22:12)
[2024-12-16] MEDS: Nitrofurantoin Macrocrystals 100 MG Capsule PO ×2 (08:38→22:13)
[2024-12-16] MEDS: APIXABAN 5 MG TABLET PO ×2 (08:38→22:14)
[2024-12-16] MEDS: Furosemide 20 MG Tablet PO (08:38)
[2024-12-16 08:39] VITALS: BP 149/89; PULSE 80
[2024-12-16] MEDS: Metoprolol(XL)Succ 25 MG Tablet PO ×2 (08:39→22:14)
[2024-12-16] MEDS: Senna/Docusate Sodium 1 Tablet 2 TABLET PO (08:39)
[2024-12-16 09:20] VITALS: PULSE 85; RESP 18; O2SAT 92
[2024-12-16] MEDS: Ensure Plus High Protein 120 ML LIQUID PO ×3 (09:20→17:36)
--- NOTE | 2024-12-16 15:30 | NURSING ---
PT RT BIG TOE WAS BLEEDING FROM UNDER NAIL. CLEANED AND PUT A BAND AID ON. REPORTED TO RN
--- NOTE | 2024-12-16 16:23 | CHAPLAIN ---
Type of Pastoral Visit _x__ Initial Visit ___ Follow-up Visit ___ On-call Visit ___ General Patient Visit ___ Spiritual Assessment ___ Family Conference ___ Bereavement ___ Rapid Response ___ Code Blue ___ Other (describe below) Pastoral Care Referral From _x__ Patient ___ Family ___ Nurse ___ Physician ___ Exhibitions Curator ___ Golf Cart Repairer ___ Other (describe below) Sacrament/Intervention _x__ Active listening ___ Anointing ___ Gnosticist ___ Bereavement ___ Communion ___ Yael exploration ___ _x__ Life review _x__ Prayer ___ Reconciliation ___ Sacrament of Sick ___ Supportive presence ___ Wedding ___ Other (describe below) Pastoral Comments patient is sitting in chair and awake; pt gives some health information and then shares that his in April; pt talked about family support and his rastafari connection; pt acknowledges difficulty in grief; pt states motivation to work at therapy and to get home again soon; daughter from out of town arrives during visit; presence and prayer given
[2024-12-16 17:49] VITALS: BP 107/62; PULSE 105; RESP 18; TEMP 36.8; O2SAT 97
[2024-12-16 22:00] VITALS: PULSE 111; RESP 16
[2024-12-16] MEDS: Atorvastatin Calcium 40 MG Tablet PO (22:12)
[2024-12-16] MEDS: Mirtazapine 15 MG Tablet 7.5 MG PO (22:12)
[2024-12-16 22:14] VITALS: BP 138/87; PULSE 111
[2024-12-17] VITALS (7 sets, daily range): BP systolic 104–135; BP diastolic 55–84; PULSE 80–102; RESP 16; TEMP 36.3–36.8; O2SAT 95–97; BMI 23.7
[2024-12-17] MEDS: Levothyroxine 150 MCG Tablet PO (07:03)
[2024-12-17] MEDS: Menthol/Lanolin/Calamine/Znox 113 GM Tube 1 APPLIC TOPICAL ×2 (07:10→22:28)
[2024-12-17] MEDS: Nystatin Powder 15gm Bottle 1 APPLIC TOPICAL ×2 (07:10→22:28)
[2024-12-17] MEDS: Senna/Docusate Sodium 1 Tablet 2 TABLET PO (08:50)
[2024-12-17] MEDS: Aspirin 81 MG TAB.CHEW PO (08:50)
[2024-12-17] MEDS: Pantoprazole Sodium 20 MG Tablet PO ×2 (08:50→22:14)
[2024-12-17] MEDS: prednisoLONE soln 5 MG/5 ML UDC 15 MG PO ×3 (08:50→17:11)
[2024-12-17] MEDS: APIXABAN 5 MG TABLET PO ×2 (08:51→22:13)
[2024-12-17] MEDS: Metoprolol(XL)Succ 25 MG Tablet PO ×2 (08:51→22:19)
[2024-12-17] MEDS: Furosemide 20 MG Tablet PO (08:51)
[2024-12-17] MEDS: Nitrofurantoin Macrocrystals 100 MG Capsule PO ×2 (08:51→22:13)
[2024-12-17] MEDS: Ensure Plus High Protein 120 ML LIQUID PO ×2 (08:52→17:18)
--- NOTE | 2024-12-17 11:15 | PN_ITS ---
Subjective Subjective Afebrile VSS -heart rate has been increased and ranged from 100-111 over the past 16 hours. I suspect this is secondary to intravascular volume depletion. Maintaining appropriate oxygen saturation on RA-96 to 97% recently Oral intake - FOOD still with poor intake and averaging 25 to 49% of his meals but at least he is now eating. FLUIDS poor. Oral fluid intake yesterday was 640. Postvoid residuals x 3 are all less than 60. Discussed with nursing - no problems that need addressed Reviewed the THERAPY notes Medication list reviewed. Elvin tells me his mouth is still painful but it is less painful than it was at admission. He denies chest pain and shortness of breath. He denies lightheadedness. He denies palpitations today but he is in atrial fibrillation. Objective Data Objective Data Vital Signs: Vital Signs Temp Pulse Resp BP Pulse Ox O2 Del Method 97.3 F L 100 16 127/68 H 96 Room Air 12/17/24 06:00 12/17/24 08:51 12/17/24 06:00 12/17/24 06:00 12/17/24 06:00 12/17/24 06:00 Oxygen Delivery Method Room Air Weight: 147 lb 11.355 oz Body Mass Index (BMI) 23.7 Intake & Output: Intake and Output for Last 24 Hours 12/15/24 12/16/24 12/17/24 23:59 23:59 23:59 Intake Total 100 / 100 640 / 640 120 / 120 Output Total 775 / 775 200 / 200 Balance -675 / -675 440 / 440 120 / 120 Lab / Micro Data 12/16/24 05:41 12/16/24 05:41 Micro: Microbiology 12/15/24 15:40 Other - Penile Gram Stain - Final 12/15/24 15:30 Discharge - Eye Gram Stain - Final Physical Exam Const alert and no apparent distress Constitutional Narrative: appropriate. Working with PT doing leg exercises with no SOB and no tachypnea. No conversational dyspnea. General Appearance: cooperative HEENT HEENT Narrative: Less erythema around the gums today. Less dryness/chapping of the lips. Buccal mucosa is not quite as red/inflamed. Mouth: dry mucous membranes Eyes Eyes Narrative: water DC from the Left eye only and the lid margin is still erythematous Resp clear to auscultation bilaterally Effort and Inspection: Negative for tachypneic or respiratory distress Cardio Cardio Narrative: In AF today with increased resting HR 100-110. No gallop. Denies CP/SOB and palpitations. GI normal to inspection, nondistended, normoactive bowel sounds, soft to palpation and non-tender GI Narrative: no guarding with palpation 2 BM's yesterday Extremity no calf tenderness Extremity Narrative: trace ankle edema Assessment & Plan Assessment/Plan (1) Physical debility: (2) Ischemic cerebrovascular accident (CVA): (3) Aphasia: (4) Dysarthria: (5) Oropharyngeal dysphagia: (6) Cognitive dysfunction: (7) Stomatitis: (8) Non-small cell carcinoma of lung: QUALIFIERS: Laterality: unspecified laterality Qualified Code(s): C34.90 - Malignant neoplasm of unspecified part of unspecified bronchus or lung (9) Essential (primary) hypertension: (10) HLD (hyperlipidemia): QUALIFIERS: Hyperlipidemia type: unspecified Qualified Code(s): E 78.5 - Hyperlipidemia, unspecified (11) Nonrheumatic aortic (valve) stenosis: (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 transplanted heart: [place] heart Qualified Code(s): I25.10 - Atherosclerotic heart disease of [place] coronary artery without angina pectoris (13) Anemia of chronic disease: (14) Atrial fibrillation with RVR: (15) Cystitis: (16) Adrenal insufficiency: (17) Dehydration: (18) Hypothyroidism: QUALIFIERS: Hypothyroidism type: unspecified Qualified Code(s): E 03.9 - Hypothyroidism, unspecified PLAN: Plan 1. Continue therapy 2. Continue prednisolone at current dosage for 1 week and then start to taper 3. Continue to encourage increased fluid intake 4. 2 L of IV NS ordered for severe dehydration with AF/RVR more likely than not due to IV volume depletion. Starting to increase food and fluid intake. Less mouth pain. 5. Digoxin 0.125 mg IV now and start oral dig 0.125 mg daily later today. 6. Add a magnesium supplement to keep the mag around 2......it was 1.8 yesterday. Keep the K at 4.....it was 3.9 yesterday. Will recheck in the AM and start a potassium supplement if necessary 7. Recheck a BMP and magnesium in the a.m. Charges/Coding Visit Charges Inpatient E&M: 40489 Subs Hosp L1
[2024-12-17] MEDS: 0.9% Normal Saline (1000mL) 1,000 ML 75 ML IV (12:37)
[2024-12-17] MEDS: Digoxin 250 MCG/ML Ampul 125 MCG IV (13:20)
[2024-12-17] MEDS: Magnesium Chloride 64 MG Delay Rel.Tablet 128 MG PO (13:22)
[2024-12-17] MEDS: Digoxin 125 MCG Tablet PO (17:12)
[2024-12-17] MEDS: Mirtazapine 15 MG Tablet PO (22:13)
[2024-12-17] MEDS: Atorvastatin Calcium 40 MG Tablet PO (22:13)
[2024-12-17] MEDS: Neomycin/Polymyxin/Dexameth 5ML OPTH.BTL 1 DRP LEFT EYE (22:13)
[2024-12-18] MEDS: 0.9% Normal Saline (1000mL) 1,000 ML 75 ML IV (03:00)
[2024-12-18 03:21] VITALS: BMI 23.7
[2024-12-18 05:46] LABS: Anion Gap 16 (5-15); BUN 33 mg/dL (4-19); Calcium,Total 8.6 mg/dL (7.6-11.0); Carbon Dioxide 19.3 mmol/L (21.0-32.0); Chloride 101 mmol/L (98-108); Creatinine, Serum 1.22 mg/dL (0.70-1.20); EST Glomerular Filtration Rate 60 (>60); Estimated Creatinine Clearance 44.31 ml/min (50-250); Glucose 137 mg/dL (70-99); Potassium 3.3 mmol/L (3.3-5.1); Sodium Level 136 mmol/L (133-145)
[2024-12-18 06:00] VITALS: BP 134/76; PULSE 83; RESP 16; TEMP 36.3; O2SAT 96
[2024-12-18] MEDS: Levothyroxine 150 MCG Tablet PO (06:27)
[2024-12-18] MEDS: Menthol/Lanolin/Calamine/Znox 113 GM Tube 1 APPLIC TOPICAL ×2 (06:28→20:25)
[2024-12-18] MEDS: Nystatin Powder 15gm Bottle 1 APPLIC TOPICAL ×2 (06:31→20:25)
[2024-12-18 06:55] VITALS: O2SAT 95
[2024-12-18 08:19] VITALS: PULSE 83
[2024-12-18] MEDS: APIXABAN 5 MG TABLET PO ×2 (08:19→20:23)
[2024-12-18] MEDS: Pantoprazole Sodium 20 MG Tablet PO ×2 (08:19→20:22)
[2024-12-18] MEDS: Furosemide 20 MG Tablet PO (08:19)
[2024-12-18] MEDS: Aspirin 81 MG TAB.CHEW PO (08:19)
[2024-12-18] MEDS: Metoprolol(XL)Succ 25 MG Tablet PO ×2 (08:19→20:22)
[2024-12-18] MEDS: Senna/Docusate Sodium 1 Tablet 2 TABLET PO ×2 (08:19→20:23)
[2024-12-18] MEDS: Nitrofurantoin Macrocrystals 100 MG Capsule PO ×2 (08:19→20:24)
[2024-12-18] MEDS: Ensure Plus High Protein 120 ML LIQUID PO ×3 (08:20→17:29)
[2024-12-18] MEDS: Neomycin/Polymyxin/Dexameth 5ML OPTH.BTL 1 DRP LEFT EYE ×2 (08:20→20:21)
[2024-12-18] MEDS: Magnesium Chloride 64 MG Delay Rel.Tablet 128 MG PO (08:24)
[2024-12-18] MEDS: prednisoLONE soln 5 MG/5 ML UDC 15 MG PO ×3 (09:14→17:28)
[2024-12-18 14:58] VITALS: BMI 23.7
[2024-12-18 17:28] VITALS: BP 123/63; PULSE 92
[2024-12-18] MEDS: Digoxin 125 MCG Tablet PO (17:28)
[2024-12-18 17:39] VITALS: BP 123/63; PULSE 92; RESP 17; TEMP 36.8; O2SAT 98
[2024-12-18 20:22] VITALS: BP 134/73; PULSE 91
[2024-12-18] MEDS: Mirtazapine 15 MG Tablet PO (20:23)
[2024-12-18] MEDS: Atorvastatin Calcium 40 MG Tablet PO (20:30)
[2024-12-19] MEDS: 0.9% Saline Lock 10 ML Syringe IV (00:30)
[2024-12-19] MEDS: Levothyroxine 150 MCG Tablet PO (04:59)
[2024-12-19] MEDS: Nystatin Powder 15gm Bottle 1 APPLIC TOPICAL ×2 (05:01→23:00)
[2024-12-19] MEDS: Menthol/Lanolin/Calamine/Znox 113 GM Tube 1 APPLIC TOPICAL (05:04)
[2024-12-19 05:53] VITALS: BP 100/78; PULSE 61; RESP 15; TEMP 36.3; O2SAT 96
[2024-12-19 07:30] VITALS: BMI 24.0
[2024-12-19] MEDS: prednisoLONE soln 5 MG/5 ML UDC 15 MG PO ×3 (07:42→17:26)
[2024-12-19] MEDS: APIXABAN 5 MG TABLET PO ×2 (07:43→23:00)
[2024-12-19] MEDS: Pantoprazole Sodium 20 MG Tablet PO ×2 (07:43→23:00)
[2024-12-19] MEDS: Ensure Plus High Protein 120 ML LIQUID PO ×3 (07:43→17:25)
[2024-12-19] MEDS: Nitrofurantoin Macrocrystals 100 MG Capsule PO ×2 (07:44→23:00)
[2024-12-19] MEDS: Senna/Docusate Sodium 1 Tablet 2 TABLET PO (07:44)
[2024-12-19 07:45] VITALS: PULSE 61
[2024-12-19] MEDS: Metoprolol(XL)Succ 25 MG Tablet PO (07:45)
[2024-12-19] MEDS: Magnesium Chloride 64 MG Delay Rel.Tablet 128 MG PO (07:45)
[2024-12-19] MEDS: Furosemide 20 MG Tablet PO (07:46)
[2024-12-19] MEDS: Neomycin/Polymyxin/Dexameth 5ML OPTH.BTL 1 DRP LEFT EYE ×2 (07:46→23:03)
[2024-12-19] MEDS: Aspirin 81 MG TAB.CHEW PO (07:48)
--- NOTE | 2024-12-19 08:49 | PCM.PROGNOTE ---
Subjective Subjective Elvin was seen on TEAM rounds today. His dtr Keysha participated by phone. All questions were answered to her satisfaction. Afebrile VSS -blood pressure over the past 24 hours has ranged from 100/78 to 134/76. Heart rate is ranged from 61-92 over the past 24 hours. Maintaining appropriate oxygen saturation on RA Oral intake - FOOD food intake is improving. Yesterday he refused breakfast but he ate 75 to 100% of lunch and supper. He had 50 to 74% of his breakfast this morning. FLUIDS on 12/18/2024 he had 3300 and an 825 Out......received IV fluids. He took 1300 cc p.o. Discussed with nursing - gets confused in the evenings and at night........suspect . Easily reoriented and no agitation or aggression. No issues last night. Medication list reviewed. L eye DC grew SA. He was started on eye drops Thursday. BMP yesterday showed sodium of 136, potassium 3.3, BUN of 33 and a creatinine of 1.22 which was up from 0.95 on 12/16/24.....Is suspect the increase is due to IV volume depletion. Calcium and magnesium are normal. FBS was 135 yesterday......suspect due to Prednisolone. Denies lightheadedness. No VARGAS, CP, SOB, cough, N/V, heartburn, painful swallowing, abd pain, dysuria and calf pain. His couth is feeling less painful and his lipse are much less painful. Denies eye pain and DC today. Objective Data Objective Data Vital Signs: Vital Signs Temp Pulse Resp BP Pulse Ox O2 Del Method 97.3 F L 61 15 100/78 96 Room Air 12/19/24 05:53 12/19/24 07:45 12/19/24 05:53 12/19/24 05:53 12/19/24 05:53 12/19/24 05:53 Oxygen Delivery Method Room Air Weight: 147 lb 11.355 oz Body Mass Index (BMI) 23.7 Intake & Output: Intake and Output for Last 24 Hours 12/17/24 12/19/24 12/19/24 23:59 00:59 23:59 Intake Total 540 / 590 3300 / 3300 300 / 300 Output Total 500 / 650 825 / 825 Balance 40 / -60 2475 / 2475 300 / 300 Lab / Micro Data 12/16/24 05:41 12/18/24 03:25 Micro: Microbiology 12/15/24 15:30 Discharge - Eye Gram Stain - Final 12/15/24 15:30 Discharge - Eye Eye Culture - Final Staphylococcus aureus 12/15/24 15:40 Other - Penile Gram Stain - Final Physical Exam Const alert Constitutional Narrative: Oriented to person, place, year. Can not tell me why he is in rehab. Could not tell me the month. He is much more alert today and is not needing as much cuing from therapy. General Appearance: cooperative HEENT HEENT Narrative: No DC from the Left eye today. Sclera/conjunctiva are clear. Much less erythema of the lid margin on the left. The gums are pink today. The soft palpate and the buccal mucosa are more pink than red. No ulcerations. MM are still dry. Resp clear to auscultation bilaterally Resp Narrative: No conversational dyspnea. Effort and Inspection: Negative for tachypneic or respiratory distress Cardio Cardio Narrative: irreg with controlled VR. no gallop. GI normal to inspection, nondistended, normoactive bowel sounds, soft to palpation and non-tender GI Narrative: No guarding with palpation Extremity no calf tenderness General Extremity: Negative for edema Skin Rashes: no rashes Assessment & Plan Assessment/Plan (1) Physical debility: (2) Ischemic cerebrovascular accident (CVA): (3) Aphasia: (4) Dysarthria: (5) Oropharyngeal dysphagia: (6) Cognitive dysfunction: (7) Stomatitis: (8) Atrial fibrillation with RVR: (9) Cystitis: (10) Adrenal insufficiency: (11) Dehydration: (12) Hypokalemia: (13) Acute renal failure: QUALIFIERS: Acute renal failure type: unspecified Qualified Code(s): N17.9 - Acute kidney failure, unspecified PLAN: More likely than not secondary to intravascular volume depletion related to dehydration and to A-fib with RVR. PLAN: Plan 1. Continue therapy 2. Supplement potassium today 3. Continue to encourage increased fluid intake orally 4. Recheck a BMP and a dig level in the a.m. 5. Continue prednisolone at the current dose -Taper weekly, starting this . 6. Continue neomycin eyedrops twice daily for total of 5 days 7. Continue digoxin 8. hold Lasix 9. SW to send Keysha a list of local SNF's to pick a few if this is necessary at [place]. Family will not be able to provide enough assistance at home at this point to keep him safe. He has por safety awareness and he gets up by himself without using the call light. Charges/Coding Visit Charges Inpatient E&M: 71676 Subs Hosp L2
[2024-12-19] MEDS: Potassium Chloride Oral Tablet 20 MEQ 40 MEQ PO (10:15)
[2024-12-19 12:15] VITALS: BMI 23.7
--- NOTE | 2024-12-19 12:44 | CASEMGMT ---
Social Work IDT met with patient at bedside and dtrJeimy, participated by phone, for Team meeting. Discussed patient's progress in PT/OT/ST/SN. Educated to [facility] insurance with NRD 12/22, EDC 12/24, per insurance reviewer short LOS, however, RU documentation will be sent at D, thus, the EDC may be extended. IDT currently recommending DC to SNF for ongoing skilled therapy. Family was considering AL prior to stroke. SW offered to provide list of INN SNFs that include quality and resource data via Beep Guide link. Inquired about county of preference as 2/3 dtrs live in [place]. Dtr prefers [facility] and a text link. SW sent via Beep. Dtr confirmed currently, pt cannot return home without assistance and family cannot provide. However, the goal is for the pt to return home or maybe AL, pending safety. During meeting, without notice, pt stood up and started walking to the bathroom. Staff immediately assisted safely to the bathroom. SW will continue to follow. Blarie Clark MSW [employer] CREWMEMBER
[2024-12-19 17:26] VITALS: PULSE 62
[2024-12-19] MEDS: Digoxin 125 MCG Tablet PO (17:26)
[2024-12-19 18:00] VITALS: BP 122/76; PULSE 88; RESP 15; TEMP 36.6; O2SAT 98
[2024-12-19] MEDS: Mirtazapine 15 MG Tablet PO (20:07)
[2024-12-19 23:00] VITALS: BP 111/83; PULSE 79; RESP 15; O2SAT 98; BMI 23.7
[2024-12-19] MEDS: Atorvastatin Calcium 40 MG Tablet PO (23:00)
[2024-12-20] VITALS (8 sets, daily range): BP systolic 111–125; BP diastolic 63–83; PULSE 60–95; RESP 16–17; TEMP 36.5–36.6; O2SAT 96–99; BMI 23.7
[2024-12-20] MEDS: Metoprolol(XL)Succ 25 MG Tablet PO ×3 (00:05→20:21)
[2024-12-20] MEDS: Menthol/Lanolin/Calamine/Znox 113 GM Tube 1 APPLIC TOPICAL ×3 (00:10→20:23)
[2024-12-20 05:34] LABS: Albumin, Serum 3.1 g/dL (3.4-4.8); Anion Gap 12 (5-15); BUN 31 mg/dL (4-19); BUN/Creat Ratio 29.7 RATIO (10-20); Calcium,Total 8.5 mg/dL (7.6-11.0); Carbon Dioxide 22.5 mmol/L (21.0-32.0); Chloride 103 mmol/L (98-108); Creatinine, Serum 1.04 mg/dL (0.70-1.20); EST Glomerular Filtration Rate 73 (>60); Estimated Creatinine Clearance 51.97 ml/min (50-250); Glucose 111 mg/dL (70-99); Phosphorus 2.5 mg/dL (2.7-4.5); Potassium 4.1 mmol/L (3.3-5.1); Sodium Level 137 mmol/L (133-145)
[2024-12-20 05:59] LABS: Digoxin Level 0.89 ng/mL (0.00-2.00)
[2024-12-20] MEDS: Levothyroxine 150 MCG Tablet PO (06:58)
[2024-12-20] MEDS: Nystatin Powder 15gm Bottle 1 APPLIC TOPICAL ×2 (06:59→20:24)
--- NOTE | 2024-12-20 07:54 | NURSING ---
Pt impulsive and setting off BA for toileting needs. Pt had side rail half way down on left side. Ensure that the BA is activated when in bed or chair.
[2024-12-20] MEDS: Neomycin/Polymyxin/Dexameth 5ML OPTH.BTL 1 DRP LEFT EYE ×2 (08:10→20:20)
[2024-12-20] MEDS: Senna/Docusate Sodium 1 Tablet 2 TABLET PO ×2 (08:11→20:23)
[2024-12-20] MEDS: Magnesium Chloride 64 MG Delay Rel.Tablet 128 MG PO (08:11)
[2024-12-20] MEDS: Pantoprazole Sodium 20 MG Tablet PO ×2 (08:11→20:21)
[2024-12-20] MEDS: APIXABAN 5 MG TABLET PO ×2 (08:11→20:22)
[2024-12-20] MEDS: Nitrofurantoin Macrocrystals 100 MG Capsule PO ×2 (08:12→20:24)
[2024-12-20] MEDS: prednisoLONE soln 5 MG/5 ML UDC 15 MG PO ×3 (08:12→18:13)
[2024-12-20] MEDS: Aspirin 81 MG TAB.CHEW PO (08:12)
[2024-12-20] MEDS: Ensure Plus High Protein 120 ML LIQUID PO ×3 (08:23→18:14)
--- NOTE | 2024-12-20 16:52 | PN_ITS ---
Subjective Subjective Afebrile VSS - Maintaining appropriate oxygen saturation on RA Oral intake - FOOD he ate 75 to 1% of breakfast and lunch today. FLUIDS oral fluid intake yesterday was 1350. Fluid balance was +558. Discussed with nursing - still impulsive and trying to get out of bed and out of the chair without calling the nurse. Bed and chair alarms are in place. Reviewed the THERAPY notes Medication list reviewed. Elvin tells me his mouth feels good today. He denies painful swallowing. He was able to ambulate 305' today. He denies CP, SOB, palpitations, N/V/abd pain and calf pain. He tells me that he did not sleep well last night because he is worried that he has not been taking his chemo pill. He is on maintenance atezolizumab which is IV, not a pill? Has had some confusion....... will check with oncology to see when he is due for next tx. All lab drawn this morning was personally reviewed. The creatinine is down to 1.04 from 1.22 with hydration. BUN is 31. Sodium is 137 and the potassium is 4.1. Objective Data Objective Data Vital Signs: Vital Signs Temp Pulse Resp BP Pulse Ox O2 Del Method 98 F 71 16 125/72 H 96 Room Air 12/20/24 04:41 12/20/24 08:12 12/20/24 12:56 12/20/24 04:41 12/20/24 04:41 12/20/24 12:56 Oxygen Delivery Method Room Air Weight: 149 lb 14.629 oz Body Mass Index (BMI) 23.7 Intake & Output: Intake and Output for Last 24 Hours 12/19/24 12/19/24 12/20/24 00:59 23:59 23:59 Intake Total 3300 / 3300 1350 / 1350 775 / 775 Output Total 825 / 825 800 / 800 450 / 450 Balance 2475 / 2475 550 / 550 325 / 325 Lab / Micro Data 12/16/24 05:41 12/20/24 05:00 Labs: Laboratory Results - last 24 hr 12/20/24 05:00: Sodium 137, Potassium 4.1, Chloride 103, Carbon Dioxide 22.5, Anion Gap 12, BUN 31 H, Creatinine 1.04, Estim Creat Clear Calc 51.97, Est GFR (MDRD) Non-Af 73, BUN/Creatinine Ratio 29.7 H, Glucose 111 H, Calcium 8.5, P hosphorus 2.5 L, Albumin 3.1 L, Digoxin 0.89 Micro: Microbiology 12/15/24 15:40 Other - Penile Miscellaneous Culture - Preliminary Gram positive organism Gram positive organism#2 12/15/24 15:40 Other - Penile Gram Stain - Final 12/15/24 15:30 Discharge - Eye Gram Stain - Final 12/15/24 15:30 Discharge - Eye Eye Culture - Final Staphylococcus aureus 12/15/24 15:30 Discharge - Eye Anaerobic Culture - Preliminary Physical Exam Const alert, oriented x3 and no apparent distress Constitutional Narrative: doing his therapy in the therapy room today and he is alert and motivated and has increased energy/participation. He is definitely more alert with better energy. General Appearance: cooperative HEENT HEENT Narrative: No DC from the Left eye today. Sclera/conjunctiva are clear. The erythema of the left lower lid margin has almost completely resolved.. The gums are pink today. The soft palpate and the buccal mucosa are more pink than red. No ulcerations. MM are still dry. Resp clear to auscultation bilaterally Resp Narrative: No conversational dyspnea. Effort and Inspection: Negative for tachypneic or respiratory distress Cardio Cardio Narrative: irreg with controlled VR. no gallop. GI normal to inspection, nondistended, normoactive bowel sounds, soft to palpation and non-tender GI Narrative: No guarding with palpation Extremity no calf tenderness General Extremity: Negative for edema Skin Skin Narrative: The rash on the scalp has improved since admission. It is smaller and less dry. Rashes: no rashes Psych Psych Narrative: Impulsive with poor safety awareness. Forgetful and feels to call nursing when he needs to go to the toilet or once out of bed or out of the chair. Assessment & Plan Assessment/Plan (1) Physical debility: (2) Ischemic cerebrovascular accident (CVA): (3) Aphasia: (4) Dysarthria: (5) Oropharyngeal dysphagia: (6) Cognitive dysfunction: (7) Stomatitis: (8) Atrial fibrillation with RVR: (9) Cystitis: (10) Adrenal insufficiency: (11) Dehydration: (12) Hypokalemia: (13) Acute renal failure: QUALIFIERS: Acute renal failure type: unspecified Qualified Code(s): N17.9 - Acute kidney failure, unspecified PLAN: More likely than not secondary to intravascular volume depletion related to dehydration and to A-fib with RVR. PLAN: Plan 1. Continue therapy 2. Check with oncology to see when he is due for his next maintenance injection of immunotherapy. We can not give IV chemo/immunotherapy on rehab. 3. RX Melatonin at HS to see if this helps with insomnia. 4. No changes to the current drug regimen today. 5. Continue to urged him to drink more fluids. Nursing and therapists are always offering him water. Charges/Coding Visit Charges Inpatient E&M: 31279 Subs Hosp L1
[2024-12-20] MEDS: Digoxin 125 MCG Tablet PO (18:13)
[2024-12-20] MEDS: Mirtazapine 15 MG Tablet PO (20:21)
[2024-12-20] MEDS: Atorvastatin Calcium 40 MG Tablet PO (20:22)
[2024-12-20] MEDS: MELATONIN 3 MG TABLET PO (20:23)
--- NOTE | 2024-12-21 02:45 | NURSING ---
Reviewed and agree with documentation and assessment charting by Ashley MELO.
[2024-12-21] MEDS: Nystatin Powder 15gm Bottle 1 APPLIC TOPICAL ×2 (04:34→20:44)
[2024-12-21] MEDS: Menthol/Lanolin/Calamine/Znox 113 GM Tube 1 APPLIC TOPICAL ×2 (04:34→20:44)
[2024-12-21] MEDS: 0.9% Saline Lock 10 ML Syringe IV (05:01)
[2024-12-21] MEDS: Levothyroxine 150 MCG Tablet PO (05:01)
[2024-12-21 06:00] VITALS: BP 139/72; PULSE 75; RESP 16; TEMP 36.6; O2SAT 93
[2024-12-21 07:30] VITALS: BMI 24.3
[2024-12-21] MEDS: Senna/Docusate Sodium 1 Tablet 2 TABLET PO ×2 (08:15→20:46)
[2024-12-21] MEDS: Neomycin/Polymyxin/Dexameth 5ML OPTH.BTL 1 DRP LEFT EYE ×2 (08:15→20:46)
[2024-12-21 08:16] VITALS: PULSE 75
[2024-12-21] MEDS: Magnesium Chloride 64 MG Delay Rel.Tablet 128 MG PO (08:16)
[2024-12-21] MEDS: prednisoLONE soln 5 MG/5 ML UDC 15 MG PO ×3 (08:16→17:16)
[2024-12-21] MEDS: Pantoprazole Sodium 20 MG Tablet PO ×2 (08:16→20:46)
[2024-12-21] MEDS: Aspirin 81 MG TAB.CHEW PO (08:16)
[2024-12-21] MEDS: Metoprolol(XL)Succ 25 MG Tablet PO ×2 (08:16→20:45)
[2024-12-21] MEDS: APIXABAN 5 MG TABLET PO ×2 (08:16→20:46)
[2024-12-21] MEDS: Ensure Plus High Protein 120 ML LIQUID PO ×3 (08:18→17:15)
[2024-12-21 11:06] VITALS: BP 104/48; BP 96/48; BP 99/49; PULSE 65; PULSE 66; PULSE 68
--- NOTE | 2024-12-21 11:39 | CASEMGMT ---
Addendum entered by Blaire Clark 12/21/24 14:59: SW received return VM from dtr, stating she would like a referral to TCU. - SW sent referral to TCU. - SW returned call to dtr - left detailed VM explaining referral to TCU was made. Cautioned insurance needs to approve stay as well. Suggested thinking of alternative option yet - if pt would pay OOP for TCU stay, another SNF or caregivers in the home, if stay is denied. Will continue to assist with DC planning. Original Note: Social Work SW left VM with dtr Jeimy, to follow up on SNF choices. Blaire Clark AUTOMATION DRIVER SYSTEM SALES CONSULTANT
[2024-12-21 14:14] VITALS: BMI 24.3
[2024-12-21 17:16] VITALS: PULSE 67
[2024-12-21] MEDS: Digoxin 125 MCG Tablet PO (17:16)
[2024-12-21 18:00] VITALS: BP 137/55; PULSE 75; RESP 15; TEMP 36.6; O2SAT 98
[2024-12-21 20:45] VITALS: BP 132/67; PULSE 69
[2024-12-21] MEDS: Atorvastatin Calcium 40 MG Tablet PO (20:46)
[2024-12-21] MEDS: Mirtazapine 15 MG Tablet PO (20:46)
[2024-12-21] MEDS: MELATONIN 3 MG TABLET PO (20:46)
[2024-12-22 06:00] VITALS: BP 137/64; PULSE 68; RESP 18; TEMP 36.4; O2SAT 99
[2024-12-22] MEDS: Nystatin Powder 15gm Bottle 1 APPLIC TOPICAL ×2 (06:21→20:17)
[2024-12-22] MEDS: Levothyroxine 150 MCG Tablet PO (06:21)
[2024-12-22] MEDS: Menthol/Lanolin/Calamine/Znox 113 GM Tube 1 APPLIC TOPICAL ×2 (06:21→20:15)
[2024-12-22] MEDS: Senna/Docusate Sodium 1 Tablet 2 TABLET PO ×2 (08:31→20:17)
[2024-12-22] MEDS: Neomycin/Polymyxin/Dexameth 5ML OPTH.BTL 1 DRP LEFT EYE (08:31)
[2024-12-22] MEDS: Magnesium Chloride 64 MG Delay Rel.Tablet 128 MG PO (08:32)
[2024-12-22] MEDS: Pantoprazole Sodium 20 MG Tablet PO ×2 (08:32→20:17)
[2024-12-22] MEDS: Aspirin 81 MG TAB.CHEW PO (08:32)
[2024-12-22] MEDS: prednisoLONE soln 5 MG/5 ML UDC 15 MG PO ×3 (08:32→16:10)
[2024-12-22] MEDS: APIXABAN 5 MG TABLET PO ×2 (08:32→20:16)
[2024-12-22 08:33] VITALS: BP 137/64; PULSE 68
[2024-12-22] MEDS: Ensure Plus High Protein 120 ML LIQUID PO ×3 (08:33→16:10)
[2024-12-22] MEDS: Metoprolol(XL)Succ 25 MG Tablet PO ×2 (08:33→20:20)
[2024-12-22 13:09] VITALS: BMI 24.3
[2024-12-22 16:10] VITALS: PULSE 68
[2024-12-22] MEDS: Digoxin 125 MCG Tablet PO (16:10)
[2024-12-22 17:53] VITALS: BP 145/62; PULSE 69; RESP 17; TEMP 36.4; O2SAT 98
[2024-12-22 20:10] VITALS: BMI 24.3
[2024-12-22] MEDS: 0.9% Saline Lock 10 ML Syringe IV (20:12)
[2024-12-22 20:15] VITALS: BP 147/60; PULSE 68
[2024-12-22] MEDS: Mirtazapine 15 MG Tablet PO (20:15)
[2024-12-22] MEDS: Atorvastatin Calcium 40 MG Tablet PO (20:19)
[2024-12-22 20:20] VITALS: PULSE 68
[2024-12-22] MEDS: MELATONIN 3 MG TABLET PO (20:20)
[2024-12-23] MEDS: Nystatin Powder 15gm Bottle 1 APPLIC TOPICAL ×2 (05:43→20:13)
[2024-12-23] MEDS: Menthol/Lanolin/Calamine/Znox 113 GM Tube 1 APPLIC TOPICAL ×2 (05:43→20:11)
[2024-12-23] MEDS: Levothyroxine 150 MCG Tablet PO (05:43)
[2024-12-23 06:00] VITALS: BP 148/73; PULSE 60; RESP 15; TEMP 36.4; O2SAT 95
[2024-12-23 07:00] VITALS: BMI 24.7
[2024-12-23] MEDS: APIXABAN 5 MG TABLET PO ×2 (08:14→20:13)
[2024-12-23] MEDS: Aspirin 81 MG TAB.CHEW PO (08:14)
[2024-12-23] MEDS: prednisoLONE soln 5 MG/5 ML UDC 15 MG PO ×3 (08:14→17:42)
[2024-12-23] MEDS: Ensure Plus High Protein 120 ML LIQUID PO ×3 (08:14→17:42)
[2024-12-23] MEDS: Pantoprazole Sodium 20 MG Tablet PO ×2 (08:15→20:13)
[2024-12-23] MEDS: Magnesium Chloride 64 MG Delay Rel.Tablet 128 MG PO (08:15)
[2024-12-23] MEDS: Senna/Docusate Sodium 1 Tablet 2 TABLET PO ×2 (08:15→20:13)
[2024-12-23 08:16] VITALS: BP 144/75; PULSE 62
[2024-12-23] MEDS: Metoprolol(XL)Succ 25 MG Tablet PO ×2 (08:16→20:14)
--- NOTE | 2024-12-23 10:52 | CASEMGMT ---
Addendum entered by Blaire Clark 12/23/24 12:07: SW received return call from dtr. SW educated to insurance approval with NRD 12/29, if not approved, LCD 12/31. SW explained IDT discussed pt's progress and needs at DC. Made recommendations for 24/7 care d/t impulsivity, cognitive impairment, and severe left neglect. Pt would not be appropriate for TCU or skilled services at DC as pt is progressing well physically. Recommending home with 24/7 care or AL, if there are funds. Dtr expressed understanding and will discuss with family over the weekend, then report to decision at Team meeting Thursday. Original Note: Social Work SW left VM with dtr to provide updates on insurance NRD and DC plans. Blaire Clark WELL DRILL OPERATOR [employer] SOCIAL [employer]IA CAMPAIGN MANAGER
[2024-12-23 10:59] VITALS: BMI 24.3
[2024-12-23 17:41] VITALS: BP 145/59; PULSE 69
[2024-12-23] MEDS: Digoxin 125 MCG Tablet PO (17:41)
[2024-12-23 18:00] VITALS: BP 145/59; PULSE 69; RESP 18; TEMP 37.1; O2SAT 100
--- NOTE | 2024-12-23 18:50 | PCM.PROGNOTE ---
Subjective Subjective Afebrile VSS -systolic blood pressure is always above goal. Maintaining appropriate oxygen saturation on RA-100% on room air Oral intake - FOOD much better than at admission FLUIDS food intake is only fair. Fluid balance on 12/22/2024 is -95 and today is -550 so far. We continue to be encourage increased fluid intake. Discussed with nursing - no problems that need addressed. He is now using the call hilliard appropriately. Seems less impulsive. Reviewed the THERAPY notes Medication list reviewed. Objective Data Objective Data Vital Signs: Vital Signs Temp Pulse Resp BP Pulse Ox O2 Del Method 98.7 F 69 18 145/59 H 100 Room Air 12/23/24 18:00 12/23/24 18:00 12/23/24 18:00 12/23/24 18:00 12/23/24 18:00 12/23/24 18:00 Oxygen Delivery Method Room Air Weight: 153 lb 10.595 oz Body Mass Index (BMI) 24.3 Intake & Output: Intake and Output for Last 24 Hours 12/21/24 12/22/24 12/23/24 23:59 23:59 23:59 Intake Total 1090 / 1090 950 / 950 600 / 600 Output Total 600 / 600 1045 / 1045 1150 / 1150 Balance 490 / 490 -95 / -95 -550 / -550 Lab / Micro Data 12/16/24 05:41 12/20/24 05:00 Micro: Microbiology 12/15/24 15:40 Other - Penile Miscellaneous Culture - Final Dermacoccus / kytococcus sp. Streptococcus constellatus pha 12/15/24 15:40 Other - Penile Gram Stain - Final 12/15/24 15:30 Discharge - Eye Gram Stain - Final 12/15/24 15:30 Discharge - Eye Eye Culture - Final Staphylococcus aureus 12/15/24 15:30 Discharge - Eye Anaerobic Culture - Final Cutibacterium acnes Physical Exam Const alert, oriented x3 and no apparent distress General Appearance: cooperative HEENT HEENT Narrative: Mucous membranes in the mouth are much improved over admission. His lips are no longer cracked and bleeding. He denies mouth pain today. Mouth: dry mucous membranes Resp clear to auscultation bilaterally Resp Narrative: No conversational dyspnea. Effort and Inspection: Negative for tachypneic or respiratory distress Cardio Cardio Narrative: Regular rate and rhythm today. Heart rate has ranged from 60-69 over the past 48 hours. GI normal to inspection, nondistended, normoactive bowel sounds, soft to palpation and non-tender GI Narrative: No guarding with palpation Extremity no calf tenderness General Extremity: Negative for edema Skin Rashes: no rashes Assessment & Plan Assessment/Plan (1) Physical debility: (2) Ischemic cerebrovascular accident (CVA): (3) Aphasia: (4) Dysarthria: (5) Oropharyngeal dysphagia: (6) Cognitive dysfunction: (7) Stomatitis: (8) Atrial fibrillation with RVR: (9) Cystitis: (10) Adrenal insufficiency: (11) Dehydration: (12) Hypokalemia: (13) Acute renal failure: QUALIFIERS: Acute renal failure type: unspecified Qualified Code(s): N17.9 - Acute kidney failure, unspecified PLAN: More likely than not secondary to intravascular volume depletion related to dehydration and to A-fib with RVR. PLAN: Plan 1. Continue therapy 2. Continue to hold Lasix 3. Recheck a BMP, CBC, mag, Phos and a digoxin level on Thursday 4. The only antihypertensive he is taking is metoprolol and he is taking 25 mg twice daily. I am going to add a low dose of Lisinopril. Charges/Coding Visit Charges Inpatient E&M: 12647 [facility] Hosp L1
[2024-12-23 19:50] VITALS: BP 142/56; PULSE 64; PULSE 69; RESP 18; O2SAT 100; BMI 24.3
[2024-12-23] MEDS: 0.9% Saline Lock 10 ML Syringe IV (19:50)
[2024-12-23] MEDS: Mirtazapine 15 MG Tablet PO (19:58)
[2024-12-23] MEDS: Lisinopril 2.5 MG Tablet PO (19:58)
[2024-12-23] MEDS: MELATONIN 3 MG TABLET PO (20:12)
[2024-12-23 20:14] VITALS: BP 142/56; PULSE 64
[2024-12-23] MEDS: Atorvastatin Calcium 40 MG Tablet PO (20:14)
[2024-12-24 05:00] VITALS: BP 128/68; PULSE 57; RESP 17; TEMP 36.2; O2SAT 99
[2024-12-24] MEDS: Menthol/Lanolin/Calamine/Znox 113 GM Tube 1 APPLIC TOPICAL ×2 (05:08→21:13)
[2024-12-24] MEDS: Nystatin Powder 15gm Bottle 1 APPLIC TOPICAL ×2 (05:08→21:13)
[2024-12-24] MEDS: Levothyroxine 150 MCG Tablet PO (05:08)
[2024-12-24 05:46] LABS: Hematocrit 35.1 % (40-54); Hemoglobin 11.8 g/dL (13.0-16.5); Mean Corp Hgb Conc 33.6 g/dL (32-36); Mean Corpuscular Hgb 29.6 pg (27.0-32.0); Mean Corpuscular Volume 88.2 fL (80-94); Platelet Count 252 K/mm3 (150-450); RBC Distribution Width SD 44.6 fl (35.1-43.9); Red Blood Count 3.98 M/mm3 (4.6-6.2); White Blood Count 12.8 K/mm3 (4.4-11.0)
[2024-12-24 07:10] LABS: Phosphorus 2.9 mg/dL (2.7-4.5)
[2024-12-24] MEDS: Lisinopril 2.5 MG Tablet PO (07:52)
[2024-12-24 07:53] VITALS: BP 128/68; PULSE 57
[2024-12-24] MEDS: Metoprolol(XL)Succ 25 MG Tablet PO ×2 (07:53→21:14)
[2024-12-24] MEDS: APIXABAN 5 MG TABLET PO ×2 (07:54→21:12)
[2024-12-24] MEDS: Pantoprazole Sodium 20 MG Tablet PO ×2 (07:54→21:12)
[2024-12-24] MEDS: Senna/Docusate Sodium 1 Tablet 2 TABLET PO ×2 (07:54→21:12)
[2024-12-24] MEDS: Magnesium Chloride 64 MG Delay Rel.Tablet 128 MG PO (07:55)
[2024-12-24] MEDS: Aspirin 81 MG TAB.CHEW PO (07:55)
[2024-12-24] MEDS: Ensure Plus High Protein 120 ML LIQUID PO ×3 (07:56→16:19)
[2024-12-24] MEDS: prednisoLONE soln 5 MG/5 ML UDC 15 MG PO ×3 (07:57→16:20)
[2024-12-24 14:48] VITALS: BMI 24.3
[2024-12-24 16:20] VITALS: PULSE 61
[2024-12-24] MEDS: Digoxin 125 MCG Tablet PO (16:20)
[2024-12-24 18:00] VITALS: BP 130/43; PULSE 93; RESP 16; TEMP 36.4; O2SAT 98
[2024-12-24] MEDS: 0.9 % NaCl (Sterile) Posiflush 10 mL IV (19:01)
--- NOTE | 2024-12-24 19:06 | NURSING ---
1 inch Gripper needle dc'd from right port chest site due to non use. Patient tolerated well. Covered site with 2x2 gauze after.
[2024-12-24] MEDS: Atorvastatin Calcium 40 MG Tablet PO (21:12)
[2024-12-24] MEDS: MELATONIN 3 MG TABLET PO (21:12)
[2024-12-24] MEDS: Mirtazapine 15 MG Tablet PO (21:12)
[2024-12-24 21:14] VITALS: BP 166/59; PULSE 60
[2024-12-25 01:37] VITALS: BMI 24.3
[2024-12-25] MEDS: Nystatin Powder 15gm Bottle 1 APPLIC TOPICAL ×2 (06:22→21:43)
[2024-12-25] MEDS: Levothyroxine 150 MCG Tablet PO (06:22)
[2024-12-25] MEDS: Menthol/Lanolin/Calamine/Znox 113 GM Tube 1 APPLIC TOPICAL ×2 (06:22→21:43)
[2024-12-25 06:45] VITALS: BP 151/56; PULSE 58; RESP 15; TEMP 36.6; O2SAT 97
[2024-12-25 07:53] VITALS: PULSE 58
[2024-12-25] MEDS: Magnesium Chloride 64 MG Delay Rel.Tablet 128 MG PO (07:53)
[2024-12-25] MEDS: Senna/Docusate Sodium 1 Tablet 2 TABLET PO ×2 (07:53→21:44)
[2024-12-25] MEDS: prednisoLONE soln 5 MG/5 ML UDC 15 MG PO ×3 (07:53→16:48)
[2024-12-25] MEDS: Metoprolol(XL)Succ 25 MG Tablet PO ×2 (07:53→21:44)
[2024-12-25] MEDS: Lisinopril 2.5 MG Tablet PO (07:53)
[2024-12-25] MEDS: APIXABAN 5 MG TABLET PO ×2 (07:54→21:43)
[2024-12-25] MEDS: Ensure Plus High Protein 120 ML LIQUID PO ×3 (07:54→16:48)
[2024-12-25] MEDS: Aspirin 81 MG TAB.CHEW PO (07:54)
[2024-12-25] MEDS: Pantoprazole Sodium 20 MG Tablet PO ×2 (07:54→21:44)
[2024-12-25 10:42] VITALS: BMI 24.3
[2024-12-25 16:48] VITALS: PULSE 63
[2024-12-25] MEDS: Digoxin 125 MCG Tablet PO (16:48)
[2024-12-25 18:00] VITALS: BP 140/62; PULSE 57; RESP 16; TEMP 36.6; O2SAT 96
[2024-12-25] MEDS: Mirtazapine 15 MG Tablet PO (21:43)
[2024-12-25 21:44] VITALS: BP 159/56; PULSE 60
[2024-12-25] MEDS: MELATONIN 3 MG TABLET PO (21:44)
[2024-12-25] MEDS: Atorvastatin Calcium 40 MG Tablet PO (21:44)
[2024-12-26 01:11] VITALS: BMI 24.3
[2024-12-26] MEDS: Levothyroxine 150 MCG Tablet PO (04:37)
[2024-12-26] MEDS: Nystatin Powder 15gm Bottle 1 APPLIC TOPICAL ×2 (04:38→20:18)
[2024-12-26] MEDS: Menthol/Lanolin/Calamine/Znox 113 GM Tube 1 APPLIC TOPICAL ×2 (04:39→20:18)
[2024-12-26 04:43] VITALS: BMI 24.1
[2024-12-26 04:46] VITALS: BP 159/67; PULSE 59; RESP 17; TEMP 36.4; O2SAT 100
[2024-12-26 06:21] LABS: Anion Gap 7 (5-15); BUN 23 mg/dL (4-19); BUN/Creat Ratio 24.9 RATIO (10-20); Calcium,Total 8.3 mg/dL (7.6-11.0); Carbon Dioxide 26.4 mmol/L (21.0-32.0); Chloride 102 mmol/L (98-108); Creatinine, Serum 0.92 mg/dL (0.70-1.20); Digoxin Level 0.84 ng/mL (0.00-2.00); EST Glomerular Filtration Rate 85 (>60); Estimated Creatinine Clearance 58.75 ml/min (50-250); Glucose 102 mg/dL (70-99); Potassium 4.7 mmol/L (3.3-5.1); Sodium Level 136 mmol/L (133-145)
[2024-12-26 08:02] VITALS: PULSE 59
[2024-12-26] MEDS: Ensure Plus High Protein 120 ML LIQUID PO ×3 (08:02→15:48)
[2024-12-26] MEDS: Senna/Docusate Sodium 1 Tablet 2 TABLET PO ×2 (08:02→20:16)
[2024-12-26] MEDS: prednisoLONE soln 5 MG/5 ML UDC 15 MG PO (08:02)
[2024-12-26] MEDS: Metoprolol(XL)Succ 25 MG Tablet PO ×2 (08:02→20:16)
[2024-12-26] MEDS: Magnesium Chloride 64 MG Delay Rel.Tablet 128 MG PO (08:03)
[2024-12-26] MEDS: Lisinopril 2.5 MG Tablet PO (08:03)
[2024-12-26] MEDS: Pantoprazole Sodium 20 MG Tablet PO ×2 (08:03→20:17)
[2024-12-26] MEDS: Aspirin 81 MG TAB.CHEW PO (08:03)
[2024-12-26] MEDS: APIXABAN 5 MG TABLET PO ×2 (08:03→20:17)
--- NOTE | 2024-12-26 10:12 | PCM.PROGNOTE ---
Subjective Subjective Elvin was seen on TEAM rounds today. Daughter Jeimy was present in the room. Afebrile VSS - systolic BP is elevated. It is currently 159/67. HR has ranged from 59-63 over the weekend. Lisinopril was added on 12/23 for systolic HTN Maintaining appropriate oxygen saturation on RA Oral intake - FOOD 50 to 100% FLUIDS poor to fair Discussed with nursing - no problems that need addressed Reviewed the THERAPY notes Medication list reviewed. Denies headache, neck pain, lightheadedness, vertigo, chest pain, shortness of breath, cough, nausea/vomiting/abdominal pain, dysuria and calf pain. Lab done this AM is good. BUN is down to 23 and the Creat is 0.92. WBC is a little elevated but, he has been on high dose steroids for suspected Lichen Planus. His mouth is doing much better and he is no longer c/o mouth pain. He has increased his PO intake significantly. NO pain with swallowing and the rash on the scalp has improved and is nearly completely gone. Dig level is 0.84 today. Objective Data Objective Data Vital Signs: Vital Signs Temp Pulse Resp BP Pulse Ox O2 Del Method 97.5 F L 59 L 17 159/67 H 100 Room Air 12/26/24 04:46 12/26/24 08:02 12/26/24 04:46 12/26/24 04:46 12/26/24 04:46 12/26/24 04:46 Oxygen Delivery Method Room Air Weight: 149 lb 7.574 oz Body Mass Index (BMI) 24.1 Intake & Output: Intake and Output for Last 24 Hours 12/24/24 12/25/24 12/26/24 23:59 23:59 23:59 Intake Total 950 / 950 1000 / 1000 100 / 100 Output Total 1500 / 1500 1100 / 1100 200 / 200 Balance -550 / -550 -100 / -100 -100 / -100 Lab / Micro Data 12/24/24 05:34 12/26/24 05:39 Labs: Laboratory Results - last 24 hr 12/26/24 05:39: Sodium 136, Potassium 4.7, Chloride 102, Carbon Dioxide 26.4, Anion Gap 7, BUN 23 H, Creatinine 0.92, Estim Creat Clear Calc 58.75, Est GFR (MDRD) Non-Af 85, BUN/Creatinine Ratio 24.9 H, Glucose 102 H, Calcium 8.3, Digoxin 0.84 Micro: Microbiology 12/15/24 15:40 Other - Penile Miscellaneous Culture - Final Dermacoccus / kytococcus sp. Streptococcus constellatus pha 12/15/24 15:40 Other - Penile Gram Stain - Final 12/15/24 15:30 Discharge - Eye Gram Stain - Final 12/15/24 15:30 Discharge - Eye Eye Culture - Final Staphylococcus aureus 12/15/24 15:30 Discharge - Eye Anaerobic Culture - Final Cutibacterium acnes Physical Exam Const alert Constitutional Narrative: able to follow simple commands. Appropriate. Pleasant and making good eye contact with me. Eyes PERRL and EOMs intact bilaterally Eyes Narrative: no nystagmus Neck supple Resp normal respiratory effort and clear to auscultation bilaterally Resp Narrative: mildly diminished in the bases. Not tachypneic. No conversational dyspnea. Not SOB when up walking with therapy or when standing at the sink. Cardio regular rate, regular rhythm, no murmurs and no gallops Cardio Narrative: No ectopy GI normal to inspection, nondistended, normoactive bowel sounds, soft to palpation and non-tender Extremity no calf tenderness General Extremity: Negative for edema Neuro Neuro Narrative: Dysarthria is improving. Still with a Left facial droop and now he has ptosis of the Left upper lid as well. No drift with the LUE. Slight drift with the LLE but, was far from hitting the bed. The L manufacturing sales representative is weaker. NO ataxia. No visual field cuts. No extinction. Veers to the Left when ambulating........therapist feels this has gotten worse since Thursday. Thought processing is much slower than last week. Voice is not projecting and he has a very soft voice that is difficult to understand. Rippler strength with OT is down 10lbs on the left this week compared to last week. Less sit to stands in 30 secs and we have to keep cuing him to stand after he sits. Psych Psych Narrative: Not anxious. engaging with me ans making good eye contact. Did not fall asleep until 1 AM last night but, apparently slept well afterward and he is awake and alert now. Assessment & Plan Assessment/Plan (1) Physical debility: (2) Ischemic cerebrovascular accident (CVA): (3) Aphasia: (4) Dysarthria: (5) Oropharyngeal dysphagia: (6) Cognitive dysfunction: (7) Stomatitis: (8) Atrial fibrillation with RVR: (9) Cystitis: (10) Adrenal insufficiency: (11) Dehydration: (12) Hypokalemia: (13) Acute renal failure: QUALIFIERS: Acute renal failure type: unspecified Qualified Code(s): N17.9 - Acute kidney failure, unspecified (14) Extension of stroke: PLAN: He had extension of stroke sometime between Thursday afternoon and Thursday AM. He is on Apixaban so not a candidate for thrombolysis. 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 PLAN: Plan 1. Continue therapy. 2. NC CT brain to r/o hemorrhagic conversion He is on Apixaban. 3. Will no longer be able to live independently. He needs 24/7 supervision. Family considering assisted living, home with 24/7 care and ECF. Plan on having a family meeting with his 3 dtrs Thursday at 11 AM to discuss plans for DC. Also need to discuss code status and hospice. Doubt oncology will want to continue immunotherapy in his current state. 4. D/W oncology. He would need to be able to be able to do at least 50% of his ADL's. Will monitor closely over the course of this week. 5. Absolutely avoid hypotension/dehydration.....permissive HTN for now. BUN/creatinine ratio is 24.9 today which is improved but will administer IV fluids overnight to improve circulation. Charges/Coding Visit Charges Inpatient E&M: 81190 Subs Hosp L2
--- NOTE | 2024-12-26 10:42 | CT_ITS ---
EXAM: BRAIN/HEAD WITHOUT CONTRAST CLINICAL HISTORY: LEFT SIDE NEGLECT COMPARISON: Comparison is made with prior study dated December 10, 2024. TECHNIQUE: Multiple axial tomographic images were obtained without intravenous contrast administration. Coronal and sagittal reconstruction was obtained as well. FINDINGS: Moderate degree of cerebral atrophy. Focal encephalomalacia in the posterior left parieto-occipital lobes. This is in keeping with a subacute infarction. There is evidence of tiny bilateral lacunar infarcts. This is unchanged. Cerebellar atrophy. Decreased attenuation in the periventricular distribution suggestive of chronic small-vessel disease. CT/Brain/Head without Contrast IMPRESSION: Stable examination. [facility]
[2024-12-26] MEDS: prednisoLONE soln 15 MG/5 ML UDC PO ×2 (11:40→15:49)
--- NOTE | 2024-12-26 13:00 | CASEMGMT ---
Addendum entered by Blaire Clark 12/26/24 14:47: ANNALISE phoned dtr Elana, to inquire about finances. Elana stated she was actively with sister Shelia, and on the phone with sister Jeimy, and asked if this worker could join that conversation. SW agreed. Jeimy had not provided an update from Team yet, so this worker briefly explained the ongoing recommendation for 24/7 care. Reiterated the 3 options: [employer] HATCH[employer] SUPERVISOR, AL, SNF. Discussed finances. Elana stated pt will have the funds to pay OOP and will not need Medicaid. Shelia inquired about the basis behind's insurance's decision to likely issue DC date after pt just had another stroke. SW explained that is why the Dr is suggesting a meeting with the 3 dtrs to help address medical standpoint and answer dtr's questions. Dtr's accepted and scheduled meeting for 12/28 at 1100. Elana requested resources also be sent via email to Elana and Shelia. SW agreed and retrieved email addresses. Dtr's appreciative. SW email private duty list, AL via email and sent SNF list INN with pt's insurance that includes quality and resource data via [employer] link via email. Original Note: Social Work IDT met with patient and dtr, Jeimy, at bedside for Team meeting. Discussed patient's progress in PT/OT/ST/SN. Educated to [employer] insurance with NRD 12/29, EDC 01/01; as continued stay is not guaranteed with each review. Team explained noted pt's overall decline since last week. Pt needs ongoing cues for all tasks. Pt cannot process to sequence tasks. Pt is on a modified diet. SW observed dtr avoiding eye contact with team while speaking, maintaining sight on pt, though dtr repeated back information accurately. SW inquired to dtr about plans for DC, as recommendations for 24/7 care has not altered. Dtr was not able to provide concrete answers but did state he cannot return home and grandson cannot assist. SW reiterated the options would be 24/7 care in the home, AL or SNF. Dtr indicated likely AL, though does not know pt's finances. SW to contact dtr Joo, to discuss finances as SW explained AL is OOP and SNF can be covered by [facility]. Explained the facility of choice would determine if pt would be appropriate for AL. suggested scheduling a meeting for all 3 dtrs to be present with this worker and Dr. Celeste is suspecting pt may be appropriate for hospice. Dtr became emotional and agreed to schedule meeting and will notify this worker of available dates/times. SW did provide dtr with AL list and reminded her of SNF list sent of options. Dtr stated she is an RN at [facility] TCC unit. SW explained pt would not be appropriate for skilled care on TCC, but could be in their LTC or AL. Dtr expressed understanding. SW will await call from dtr to schedule meeting. SW will continue to follow for DC planning and support. Blaire Clark SCREEN PRINTING INSPECTOR [employer]LINE LOUNGE RECEPTIONIST
[2024-12-26 13:08] VITALS: BMI 24.1
[2024-12-26] MEDS: 0.9% Saline Lock 10 ML Syringe IV (15:42)
[2024-12-26] MEDS: 0.9% Normal Saline (1000mL) 1,000 ML 500 ML IV (15:45)
[2024-12-26 15:56] VITALS: PULSE 52
[2024-12-26 18:00] VITALS: BP 116/46; PULSE 52; RESP 17; TEMP 36.7; O2SAT 92
[2024-12-26 20:16] VITALS: BP 131/43; PULSE 63
[2024-12-26] MEDS: Atorvastatin Calcium 40 MG Tablet PO (20:17)
[2024-12-26] MEDS: Mirtazapine 15 MG Tablet PO (20:17)
[2024-12-26] MEDS: MELATONIN 3 MG TABLET PO (20:17)
[2024-12-26 20:30] VITALS: BMI 24.1
[2024-12-27] VITALS (7 sets, daily range): BP systolic 125–148; BP diastolic 52–54; PULSE 55–60; RESP 14–16; TEMP 36.7–37.1; O2SAT 96–99; BMI 24.1
[2024-12-27] MEDS: 0.9% Normal Saline (1000mL) 1,000 ML 80 ML IV ×2 (00:02→16:51)
[2024-12-27] MEDS: Nystatin Powder 15gm Bottle 1 APPLIC TOPICAL ×2 (04:38→21:04)
[2024-12-27] MEDS: Menthol/Lanolin/Calamine/Znox 113 GM Tube 1 APPLIC TOPICAL ×2 (04:39→21:04)
[2024-12-27] MEDS: Levothyroxine 150 MCG Tablet PO (04:39)
[2024-12-27] MEDS: Pantoprazole Sodium 20 MG Tablet PO ×2 (08:31→21:02)
[2024-12-27] MEDS: Lisinopril 2.5 MG Tablet PO (08:31)
[2024-12-27] MEDS: Senna/Docusate Sodium 1 Tablet 2 TABLET PO ×2 (08:31→21:02)
[2024-12-27] MEDS: prednisoLONE soln 15 MG/5 ML UDC PO ×3 (08:31→16:50)
[2024-12-27] MEDS: Aspirin 81 MG TAB.CHEW PO (08:31)
[2024-12-27] MEDS: APIXABAN 5 MG TABLET PO ×2 (08:32→21:02)
[2024-12-27] MEDS: Magnesium Chloride 64 MG Delay Rel.Tablet 128 MG PO (08:32)
[2024-12-27] MEDS: Metoprolol(XL)Succ 25 MG Tablet PO ×2 (08:32→21:03)
[2024-12-27] MEDS: Ensure Plus High Protein 120 ML LIQUID PO ×3 (08:32→16:50)
[2024-12-27] MEDS: levETIRAcetam 500 MG Tablet PO ×2 (16:51→21:02)
[2024-12-27] MEDS: Atorvastatin Calcium 40 MG Tablet PO (21:02)
[2024-12-27] MEDS: MELATONIN 3 MG TABLET PO (21:02)
[2024-12-27] MEDS: Mirtazapine 15 MG Tablet PO (21:02)
[2024-12-28] MEDS: 0.9% Normal Saline (1000mL) 1,000 ML 80 ML IV (03:09)
[2024-12-28] MEDS: Menthol/Lanolin/Calamine/Znox 113 GM Tube 1 APPLIC TOPICAL ×2 (04:37→20:40)
[2024-12-28] MEDS: Nystatin Powder 15gm Bottle 1 APPLIC TOPICAL ×2 (04:38→20:40)
[2024-12-28] MEDS: Levothyroxine 150 MCG Tablet PO (04:41)
[2024-12-28 06:00] VITALS: BP 146/58; PULSE 61; RESP 15; TEMP 36.6; O2SAT 97
[2024-12-28 07:00] VITALS: BMI 23.9
[2024-12-28] MEDS: Ensure Plus High Protein 120 ML LIQUID PO ×3 (09:20→16:48)
[2024-12-28] MEDS: Aspirin 81 MG TAB.CHEW PO (09:21)
[2024-12-28] MEDS: Senna/Docusate Sodium 1 Tablet 2 TABLET PO ×2 (09:21→20:25)
[2024-12-28] MEDS: Magnesium Chloride 64 MG Delay Rel.Tablet 128 MG PO (09:21)
[2024-12-28] MEDS: Pantoprazole Sodium 20 MG Tablet PO ×2 (09:21→20:25)
[2024-12-28] MEDS: levETIRAcetam 500 MG Tablet PO ×2 (09:21→09:53)
[2024-12-28] MEDS: APIXABAN 5 MG TABLET PO ×2 (09:21→20:24)
[2024-12-28] MEDS: prednisoLONE soln 15 MG/5 ML UDC PO ×2 (09:21→12:47)
[2024-12-28 09:30] VITALS: BP 85/45
[2024-12-28 09:46] VITALS: BP 119/51; BP 122/47; BP 129/48; BP 154/57; PULSE 53; PULSE 54; PULSE 58
--- NOTE | 2024-12-28 13:09 | PN_ITS ---
Subjective Subjective Afebrile VSS -heart rate is ranged from 53-61 over the past 24 hours. 1 BP this AM was recorded as 85/45 but, I do not believe this. Recheck was 154/57 and his current blood pressure is 129/48. BP meds were held this AM. Lanoxin was also held. Maintaining appropriate oxygen saturation on RA 97 to 98%. Oral intake - FOOD highly variable FLUIDS poor. He took 630 cc p.o. yesterday but had 1000 cc of normal saline. Fluid balance was still -420. Overnight he was +1388. Discussed with nursing - Continues to have episodic alterations of mental status and functional abilities. Reviewed the THERAPY notes Medication list reviewed. When I saw him first thing this AM he was alert and appropriate. He followed commands and he finished his PT session and did better than yesterday. The left facial droop was better and he had no ptosis of the Left eye. Voice projected well and speech was very intelligible. He was not drooling. The LUE is weaker than it was on . He was able to ambulate. When he was taken back to his room following therapy he began to stare and his response to questions and commands were very slow. Voice was very soft and he had increased Left facial droop. He once again had Left eye ptosis and he had visual field cute in the left eye in the upper and lower lateral visual villavicencio. He is choking on thin liquids with these episodes but, he was appropriate with ST when she worked with him today and he was doing OK with pureed food and thin liquids. This has been coming and going over the past 48H. He had a EEG yesterday but, there is no report yet. He has had no tonic clonic activity. The LUE is persistently weaker than it was last week. I suspected on Thursday that he had an extension of the stroke. NC CT head was unchanged. I suspect he may be having non- convulsive seizures on the Left side. He was started on Keppra 500 mg BID last night. He got an extra dose of 500 mg Keppra this AM. He denies VARGAS, Lightheadedness, SOB, palpitations, N/V/abd pain. no pain with swallowing. Denies painful urination. Objective Data Objective Data Vital Signs: Vital Signs Temp Pulse Resp BP Pulse Ox O2 Del Method 97.9 F 53 L 15 129/48 H 97 Room Air 12/28/24 06:00 12/28/24 09:46 12/28/24 06:00 12/28/24 09:46 12/28/24 06:00 12/28/24 06:00 Oxygen Delivery Method Room Air Weight: 148 lb 2.41 oz Body Mass Index (BMI) 23.9 Intake & Output: Intake and Output for Last 24 Hours 12/26/24 12/27/24 12/28/24 23:59 23:59 23:59 Intake Total 1260 / 1260 1630 / 1730 1488.67 / 1488.67 Output Total 700 / 900 0 / 2049 100 / 100 Balance 560 / 360 -420 / -320 1388.67 / 1388.67 Lab / Micro Data 12/24/24 05:34 12/26/24 05:39 Micro: Microbiology 12/15/24 15:40 Other - Penile Miscellaneous Culture - Final Dermacoccus / kytococcus sp. Streptococcus constellatus pha 12/15/24 15:40 Other - Penile Gram Stain - Final 12/15/24 15:30 Discharge - Eye Gram Stain - Final 12/15/24 15:30 Discharge - Eye Eye Culture - Final Staphylococcus aureus 12/15/24 15:30 Discharge - Eye Anaerobic Culture - Final Cutibacterium acnes Physical Exam Const alert Constitutional Narrative: He was alert and appropriate when I saw him. Answering my questions and following my commands in a timely fashion without the thought processing delay he is having intermittently. He was able to finish physical therapy today and did better. General Appearance: cooperative Eyes PERRL Eyes Narrative: Not tracking all the way to the left lateral canthus Neck supple Resp normal respiratory effort and clear to auscultation bilaterally Resp Narrative: No conversational dyspnea Effort and Inspection: Negative for tachypneic, respiratory distress or labored Cardio regular rate, regular rhythm and no gallops Cardio Narrative: No ectopy. HR drops down to 55 at times but, appropriately increases when he is doing therapy GI normal to inspection, nondistended, normoactive bowel sounds, soft to palpation and non-tender GI Narrative: No guarding with palpation Extremity no calf tenderness General Extremity: Negative for edema Skin General Skin Exam: no breakdown Rashes: no rashes Neuro Neuro Narrative: Intermittently alert and responsive and then obtunded with blank stare, slow speech, delayed thought processing, increased L facial droop, Left eye ptosis, drooling and increased left side weakness. Last night was feeding himself, drinking liquids with no problem and interacting normally with visitors. Has a new visual field cut in the Left lateral upper and lower quadrants with increased Left side neglect. Also has increased weakness of the LUE when compared to last weak and this is persistent and not waxing and waning. 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 Continue therapy 2. Give an extra 500 mg of Keppra - done. 3. consult teleneurology 4. Hold antihypertensives this morning and also held Lanoxin. 5. Had a family meeting with his 3 dtrs and updated them. We also discussed plans for DC........not stable for DC now. If neurology concurs with seizures may need to transfer to [facility] for continuous EEG monitoring and adjustment of AED's. Made family and pt aware. 6. Continue Apixaban and ASA. Charges/Coding Visit Charges Inpatient E&M: 85539 Subs Hosp L2
--- NOTE | 2024-12-28 13:28 | NEURO.CONS ---
Assessment and Plan: Neuro Assessment/Plan RAJAN ROSEN is a 79 M with a past medical history of , being evaluated by Teleneurology for recurrent events concerning for seizure shortly after having had a stroke. 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 Exam is largely nonfocal but patient with somnolence and the LUE pronation consistent with his stroke. Recommend repeat MRI BRain as concern for increased VF deficit. Would also workup for infection. Recommend a full 40mg/kg load of Keppra. Plan: - Keppra 2000mg, continue 750mg BID thereafter - MRI Brain wo con - UA - EEG read pending I personally attended this patient and spent a total time of 45 minutes evaluating this patient including clinical assessment, review of chart, medical history imaging, and determining appropriate treatment and workup. HPI Consult Data Date of Consult: 12/28/24 HPI Narrative HPI Narrative: RAJAN ROSEN, is a 79 M who was recently hospitalist with R parietal stroke. He was sent to rehab and was doing better, working with rehab and walking and then has been having intermittent events starting Thursday. These events are described by the physician as patient begins to stare, develops L eye droop, has L facial droop, and more drooling. Will sometimes follow commands during but becomes really somnolent. He wakes up after. He had one event on Thursday then yesterday had several events. Primary team started him on Keppra. On questioning, patient denies having ever had a seizure. [facility] Medical History (Updated 12/28/24 @ 13:[address] Nidhi Bradshaw, ) Anemia of chronic disease Constipation Encounter for antineoplastic immunotherapy Atrial fibrillation with RVR Wears glasses History of steroid therapy High cholesterol Gastric reflux Non-smoker Shortness of breath on exertion History of edema History of echocardiogram History of rheumatic fever Hypertension Cardiology follow-up encounter Dehydration Adrenal insufficiency Weakness Elevated bilirubin Hyponatremia Imbalance Nausea Thrombocytopenia Pleural effusion, bilateral Stomatitis Drug induced neutropenia Impaired glucose tolerance Encounter for chemotherapy management Edema of extremities Atherosclerotic heart disease of [place] coronary artery without angina pectoris Bilateral lower leg cellulitis Nonrheumatic aortic (valve) stenosis Obesity Elevated liver enzymes Essential (primary) hypertension Chemotherapy management, encounter for Bacteremia (12/21/19) Rash Hoarseness of voice Encounter for adjustment and management of vascular access device Immunotherapy encounter Localized swelling, mass and lump, neck Encounter for education Hypothyroidism HLD (hyperlipidemia) Non-small cell carcinoma of lung Pneumothorax, left Primary lung cancer 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 Home Medications ?Medication ?Instructions ?Recorded ?Last Taken ?Type Handicap Placcandice #1 ea 07/30/23 Unknown Rx atorvastatin 40 mg tablet 40 mg PO QHS cholesterol 10/25/24 12/14/24 History hydrocortisone 5 mg tablet 5 mg PO 1300 adrenal gland 10/25/24 12/15/24 History hydrocortisone 5 mg tablet 10 mg PO .am adrenal gland 10/25/24 12/15/24 History apixaban 5 mg tablet (Eliquis) 5 mg PO BID AFIB 30 days #60 tabs 10/27/24 12/15/24 Rx furosemide 20 mg tablet (Lasix) 20 mg PO DAILY fluid 1 month #30 10/27/24 12/15/24 Rx tabs mirtazapine 15 mg tablet 7.5 mg PO QHS Mood 11/09/24 12/14/24 History aspirin 81 mg chewable tablet 81 mg PO BREAKFAST heart health #0 12/15/24 12/15/24 Rx tabs food supplemt, lactose-reduced 120 ml PO TIDCM supplement #0 mL 12/15/24 12/15/24 Rx 0.08 gram-1.5 kcal/mL oral liquid (Ensure Plus High Protein) levothyroxine 150 mcg tablet 150 mcg PO DAILY thyroid 12/15/24 12/15/24 History metoprolol succinate 25 mg 25 mg PO BID blood pressure #0 tabs 12/15/24 12/15/24 Rx tablet,extended release 24 hr nitrofurantoin 100 mg PO BID UTI 5 days #0 caps 12/15/24 12/15/24 Rx monohydrate/macrocrystals 100 mg capsule saliva substitute combo no.9 15 ml mucous membrane 5X/DAY PRN 12/15/24 Unknown Rx (Biotene Dry Mouth Oral Rinse Dry Mouth #0 mL mouthwash) Allergy/AdvReac Type Severity Reaction Status Date / Time No Known Allergies Allergy Verified 11/30/24 08:43 Family History Uncle Cancer Mother CVA (cerebral vascular accident) Surgical History Hx of colonoscopy History of vascular access device History of left heart catheterization (04/29/21) Hx of lymph node biopsy History of tonsillectomy and adenoidectomy History of wisdom tooth extraction Social History housing: house Smoking Status: Never smoker second hand exposure: No alcohol intake: never substance use type: does not use caffeine: Yes what type of physical activity do you participate in: none frequency: does not exercise Vital Signs Vital Signs Vital Signs: 12/27/24 16:50 12/27/24 17:58 12/27/24 19:32 Temperature 98.3 F 98.0 F Temperature Source Temporal Temporal Pulse Rate 57 L 57 L 57 L Pulse Rate [Lying] Pulse Rate [Sitting (for 1 minute prior to obtaining)] Pulse Rate [Standing (for 1 minute prior to obtaining)] Pulse Strength Respiratory Rate 16 16 Blood Pressure 125/53 H 125/53 H Blood Pressure [Lying] Blood Pressure [Sitting (for 1 minute prior to obtaining)] Blood Pressure [Standing (for 1 minute prior to obtaining)] Blood Pressure Mean 77 77 Blood Pressure Mean [Lying] Blood Pressure Mean [Sitting (for 1 minute prior to obtaining)] Blood Pressure Mean [Standing (for 1 minute prior to obtaining)] Blood Pressure Source Monitor Monitor Blood Pressure Position Semi-Fowlers Sitting Blood Pressure Location Left Arm Left Arm Pulse Ox 98 98 Oxygen Delivery Method Room Air Room Air 12/27/24 21:03 12/27/24 22:00 12/28/24 06:00 Temperature 97.9 F Temperature Source Temporal Pulse Rate 55 L 61 Pulse Rate [Lying] Pulse Rate [Sitting (for 1 minute prior to obtaining)] Pulse Rate [Standing (for 1 minute prior to obtaining)] Pulse Strength Normal (2+) Respiratory Rate 15 Blood Pressure 125/52 H 146/58 H Blood Pressure [Lying] Blood Pressure [Sitting (for 1 minute prior to obtaining)] Blood Pressure [Standing (for 1 minute prior to obtaining)] Blood Pressure Mean 87 Blood Pressure Mean [Lying] Blood Pressure Mean [Sitting (for 1 minute prior to obtaining)] Blood Pressure Mean [Standing (for 1 minute prior to obtaining)] Blood Pressure Source Monitor Blood Pressure Position Semi-Fowlers Blood Pressure Location Right Arm Pulse Ox 97 Oxygen Delivery Method Room Air 12/28/24 09:30 12/28/24 09:46 12/28/24 09:46 Temperature Temperature Source Pulse Rate 58 L Pulse Rate [Lying] 53 L Pulse Rate [Sitting (for 1 minute prior to obtaining)] 54 L Pulse Rate [Standing (for 1 minute prior to obtaining)] 58 L Pulse Strength Respiratory Rate Blood Pressure 85/45 L 154/57 H Blood Pressure [Lying] 129/48 H Blood Pressure [Sitting (for 1 minute prior to obtaining)] 119/51 L Blood Pressure [Standing (for 1 minute prior to obtaining)] 122/47 H Blood Pressure Mean 58 89 Blood Pressure Mean [Lying] 75 Blood Pressure Mean [Sitting (for 1 minute prior to obtaining)] 73 Blood Pressure Mean [Standing (for 1 minute prior to obtaining)] 72 Blood Pressure Source Blood Pressure Position Blood Pressure Location Pulse Ox Oxygen Delivery Method Weight Weight: 67.2 kg Body Mass Index (BMI) 23.9 EEG Results Procedure Details EEG Procedure Details: RAJAN ROSEN is a 79 year old M with a past medical history of , who presents for evaluation of Electroencephalogram on DATE at TIME Physical Exam Narrative -? NEURO: -? Mental Status: The patient was arousable but easily falls asleep again. he is oriented to time, place, and person. -? Language: speech isdysarthic and soft.? Naming, repetition, fluency, and comprehension intact. -? Cranial Nerves: EOM horizontallyI, visual villavicencio full, no facial asymmetry, facial sensation intact, hearing intact, tongue midline, no evidence of atrophy or fibrillations. -? Motor: LUR drift and pronation, RUE intact no drift, RLE no drift antigravity, LLE no drift antigravity -? Sensation- Intact to light touch bilaterally -? Coordination: No dysmetria on [id number], finger follow finger or [id number]. -? Gait- Gait initiation was normal. Narrow base with good heel strike and stride length was observed during ambulation. Turns were in stride. Patient was able to walk normally in tandem. Romberg was normal. Lab / Micro Data 12/24/24 05:34 12/26/24 05:39 Active Medications Active Medications Active Medications: Current Medications Generic Name Dose Route Start Last Admin Trade Name Freq PRN Reason Stop Dose Admin Acetaminophen 650 mg 12/15/24 14:24 Acetaminophen 325 Mg Tablet PO Q6H PRN PRN Pain Score 1-10 Apixaban 5 mg 12/15/24 22:00 12/28/24 09:21 Apixaban 5 Mg Tablet PO 5 mg BID RAUL Administration Aspirin 81 mg 12/16/24 08:00 12/28/24 09:21 Aspirin 81 Mg Tab.Chew PO 81 mg BREAKFAST RAUL Administration Atorvastatin Calcium 40 mg 12/15/24 22:00 12/27/24 21:02 Atorvastatin Calcium 40 Mg Tablet PO 40 mg QHS RAUL Administration Bisacodyl 10 mg 12/15/24 14:24 Bisacodyl 10 Mg Suppository RC X1 PRN Constipation Calamine/Phenol 1 applic 12/15/24 22:00 12/28/24 04:37 Menthol/Lanolin/Calamine/Znox 113 Gm Tube TOPICAL 1 applic 0600,2200 RAUL Administration Protocol Digoxin 125 mcg 12/17/24 17:00 12/27/24 16:50 Digoxin 125 Mcg Tablet PO Not Given 1700 RAUL Protocol Furosemide 20 mg 12/16/24 10:00 12/19/24 07:46 Furosemide 20 Mg Tablet PO 20 mg DAILY RAUL Administration Protocol Sodium Chloride 1,000 mls @ 80 mls/hr 12/26/24 15:00 12/28/24 12:50 IV 80 mls/hr .[id number] RAUL Infusion Levetiracetam 500 mg 12/27/24 22:00 12/28/24 09:21 Levetiracetam 500 Mg Tablet PO 500 mg BID RAUL Administration Levothyroxine Sodium 150 mcg 12/16/24 06:00 12/28/24 04:41 Levothyroxine 150 Mcg Tablet PO 150 mcg DAILY@0600 RAUL Administration Lisinopril 2.5 mg 12/23/24 18:55 12/27/24 08:31 Lisinopril 2.5 Mg Tablet PO 2.5 mg DAILY RAUL Administration Protocol Magnesium Chloride 128 mg 12/17/24 12:00 12/28/24 09:21 Magnesium Chloride 64 Mg Delay Rel.Tablet PO 128 mg DAILY RAUL Administration Magnesium Hydroxide 30 ml 12/15/24 14:24 Magnesium Hydroxide 30 Ml Udc PO X1 PRN Constipation Melatonin 3 mg 12/20/24 22:00 12/27/24 21:02 Melatonin 3 Mg Tablet PO 3 mg QHS RAUL Administration Metoclopramide HCl 5 mg 12/15/24 15:07 12/15/24 16:43 Metoclopramide 5 Mg Tablet PO 5 mg Q6H PRN Administration hiccups Metoprolol Succinate 25 mg 12/15/24 22:00 12/27/24 21:03 Metoprolol(Xl)Succ 25 Mg Tablet PO 25 mg BID RAUL Administration Protocol Mirtazapine 15 mg 12/17/24 20:00 12/27/24 21:02 Mirtazapine 15 Mg Tablet PO 15 mg 2000 RAUL Administration Nutritional Formula (Lactose Free) 120 ml 12/15/24 17:00 12/28/24 12:48 Ensure Plus High Protein 120 Ml Liquid PO 120 ml TIDCM RAUL Administration Nystatin 1 applic 12/15/24 22:00 12/28/24 04:38 Nystatin Powder 15gm Bottle TOPICAL 1 applic 0600,2200 RAUL Administration Protocol Pantoprazole Sodium 20 mg 12/15/24 22:00 12/28/24 09:21 Pantoprazole Sodium 20 Mg Tablet PO 20 mg BID RAUL Administration Prednisolone Sodium Phosphate 15 mg 12/26/24 12:00 12/28/24 12:47 Prednisolone Soln 15 Mg/5 Ml Udc PO 15 mg TIDCM RAUL Administration Saliva Substitute 15 ml 12/15/24 14:17 Saliva Substitute 237 Ml Bottle MUCOUS MEM 5X/DAY PRN Dry Mouth Senna/Docusate Sodium 2 tablet 12/15/24 22:00 12/28/24 09:21 Senna/Docusate Sodium 1 Tablet PO 2 tablet BID RAUL Administration Sodium Chloride 10 - 40 ml 12/15/24 14:43 12/26/24 15:42 0.9% Saline Lock 10 Ml Syringe IV 20 ml UD PRN Administration Port-a-Cath (VAD)/R Port Flush Sodium Chloride 10 - 40 ml 12/15/24 14:43 12/24/24 19:01 0.9 % Nacl (Sterile) Posiflush 10 Ml IV 10 ml UD PRN Administration Port access or dressing change
--- NOTE | 2024-12-28 13:31 | MRI_ITS ---
PROCEDURE: TECHNIQUE: Multiplanar, multi-sequence MRI of brain was performed without and with IV contrast. 20 cc Clariscan was administered. COMPARISON: MRI brain 12/11/2024 FINDINGS: BRAIN/PARENCHYMA: Redemonstration of evolving restrict diffusion right temporal lobe, chavez radiata and frontal lobe, compatible with a subacute right MCA distribution infarct. Increased T2/FLAIR hyperintensity within these regions, compatible with vasogenic edema. There is effacement of the surrounding sulci and gyri. Findings are similar to the MRI from 12/11/2024. There is also increased intrinsic leptomeningeal T1 intensity within this region, compatible with sequela of cortical laminar necrosis. No susceptibility artifact, to suggest hemorrhage. No suspicious intracranial mass. No abnormal parenchymal or leptomeningeal enhancement. There are subcortical and periventricular white matter FLAIR hyperintensities, likely related to chronic microvascular ischemic disease. . Scattered foci of encephalomalacia and gliosis, within supratentorial infratentorial brain, compatible with sequela of prior infarcts. EXTRA-AXIAL SPACES: No abnormal extra-axial fluid collections. Patent basal cisterns and foramen magnum. MIDLINE SHIFT: None. VENTRICLES: No hydrocephalus. SCALP SOFT TISSUES & CALVARIUM: No significant abnormality. VISUALIZED SINUSES & MASTOIDS: No air-fluid levels in the paranasal sinuses. The mastoid air cells are clear. ARTERIAL FLOW VOIDS: Preserved major arterial flow voids indicating gross patency. MRI/Brain W/WO Contrast IMPRESSION: Evolving subacute right frontotemporal lobe MCA distribution infarct as describ ed above, with mass effect and no midline shift. No evidence of hemorrhagic conversion. Chronic microvascular ischemia and involutional changes. Reading Location: [facility]
[2024-12-28] MEDS: levETIRAcetam IV 2,000 MG in 0.9% Normal Saline (250mL Bag) 230 ML 1000 MG IV (13:53)
[2024-12-28 14:19] LABS: Bacteria 0 SEEN /hpf (None Seen); Mucous, Urine 0 SEEN /hpf (<or=2+); Squamous Epithelial Cells - UA 0 SEEN /hpf (0-5); White Blood Cells 0 SEEN /hpf (0-5)
[2024-12-28] MEDS: 0.9% Normal Saline (1000mL) 1,000 ML 75 ML IV (14:20)
[2024-12-28 14:28] LABS: Color, Urine Yellow (Yellow); Glucose, Dipstick Normal (Normal); Ketone-Dipstick Negative (Negative); Leukocyte Esterase-Dipstick Negative /ul (Negative); Nitrite-Dipstick Negative (Negative); Occult Blood-Urine 10 /ul (Negative); Protein-Dipstick Negative (Negative); Urine Bilirubin Dipstick Negative (Negative); Urine Clarity Clear (Clear); Urine Urobilinogen Normal (Normal); Urine pH 6.5 (5.0 - 8.0)
[2024-12-28 14:37] LABS: Red Blood Cells-Urine 0-5 SEEN /hpf (0-5)
--- NOTE | 2024-12-28 15:56 | CASEMGMT ---
Social Work SW and Dr Bradshaw met with pt's 3 dtrs to discuss medical update and DC recommendations. explained extensively pt's medical complexities. explained recommendation for 24/7 care, likely not in the home. Dtr's agreed and confirm their goal is an AL. They have been touring several places in the [place] area, as that is closer to the majority of the family and 2/3 dtrs. and this worker agree with AL. SW cautioned pt is medically complex currently and AL may not be concerned with accepted, though, typically they complete an onsite with the pt. SW suggested palliative care referral, to assist with medical component. Dr and dtr's agreed. SW to assist with referral to a company in the area of the accepting AL. Dtr provided names of ALs, [facility] and [facility]. SW to place referrals once pt is medically stable, as was explaining pending the neurology recommendation, pt may need ongoing EEG monitoring, which would result in pt transferring to [facility]. Dtrs expressed understanding. SW will continue to follow for DC planning and support. Blaire Clark HEALTH CARE COACH MANAGER OPERATIONS AND PROCUREMENT
[2024-12-28 16:41] VITALS: BMI 23.9
[2024-12-28] MEDS: prednisoLONE soln 15 MG/5 ML UDC 10 MG PO (16:46)
[2024-12-28 17:44] VITALS: BP 142/55; PULSE 65; RESP 18; TEMP 36.6; O2SAT 98
[2024-12-28] MEDS: Atorvastatin Calcium 40 MG Tablet PO (20:25)
[2024-12-28] MEDS: MELATONIN 3 MG TABLET PO (20:25)
[2024-12-28] MEDS: 0.9% Saline Lock 10 ML Syringe IV (20:26)
[2024-12-28] MEDS: levETIRAcetam Oral Solution 500 MG/5 ML 750 MG PO (20:26)
[2024-12-28] MEDS: Mirtazapine 15 MG Tablet PO (20:26)
[2024-12-29 01:39] VITALS: BMI 23.9
[2024-12-29] MEDS: Levothyroxine 150 MCG Tablet PO (05:03)
[2024-12-29] MEDS: Menthol/Lanolin/Calamine/Znox 113 GM Tube 1 APPLIC TOPICAL ×2 (05:03→22:02)
[2024-12-29] MEDS: 0.9% Normal Saline (1000mL) 1,000 ML 75 ML IV (05:03)
[2024-12-29] MEDS: Nystatin Powder 15gm Bottle 1 APPLIC TOPICAL ×2 (05:04→22:03)
[2024-12-29 06:00] VITALS: BP 158/69; PULSE 60; RESP 16; TEMP 36.2; O2SAT 100
[2024-12-29 06:03] LABS: Absolute Lymphocyte Count 1.11 X10^3/uL (0.83-4.51); Absolute Neutrophil Count 12.1 X10^3/uL (2.0-7.7); Basophil# 0.02 X10^3/uL; Basophil% 0.1 % (0-1); Eosinophil# 0.02 X10^3/uL; Eosinophils% 0.1 % (0-5); Hematocrit 38.6 % (40-54); Hemoglobin 12.8 g/dL (13.0-16.5); Lymphocyte # 1.11 X10^3/ul (0.83-4.51); Lymphocyte % 7.8 % (19-41); Mean Corp Hgb Conc 33.2 g/dL (32-36); Mean Corpuscular Hgb 29.6 pg (27.0-32.0); Mean Corpuscular Volume 89.1 fL (80-94); Mean Platelet Vol. 9.1 fl (6.2-12.0); Monocyte# 0.89 X10^3/uL; Monocyte% 6.2 % (0-10); NRBC Flagged by Analyzer 0 % (0-5); Neutrophil # 12.12 X10^3/uL (2.7-7.7); Platelet Count 202 K/mm3 (150-450); RBC Distribution Width CV 14.7 % (11.6-14.6); RBC Distribution Width SD 47.1 fl (35.1-43.9); Red Blood Count 4.33 M/mm3 (4.6-6.2); White Blood Count 14.3 K/mm3 (4.4-11.0)
[2024-12-29 06:33] LABS: AST(SGOT) 26 U/L (<=37); Alanine Aminotransfer ALT/SGPT 48 U/L (<=46); Alkaline Phosphatase 66 U/L (40-129); Anion Gap 8 (5-15); BUN 20 mg/dL (4-19); BUN/Creat Ratio 26.2 RATIO (10-20); Calcium,Total 8.1 mg/dL (7.6-11.0); Carbon Dioxide 24.4 mmol/L (21.0-32.0); Chloride 104 mmol/L (98-108); Creatinine, Serum 0.77 mg/dL (0.70-1.20); EST Glomerular Filtration Rate 91 (>60); Estimated Creatinine Clearance 67.57 ml/min (50-250); Glucose 97 mg/dL (70-99); Potassium 4.7 mmol/L (3.3-5.1); Sodium Level 136 mmol/L (133-145); Total Bilirubin 0.43 mg/dL (0.00-1.30)
--- NOTE | 2024-12-29 08:31 | ECHOL_ITS ---
Reason For Study Reason For Study: NEW ISCHEMIC STROKE (RMCA) Procedure This was a limited 2D transthoracic echocardiogram. Exam performed portable in patient room. Left Ventricle Normal LV size. The left ventricular ejection fraction is 55 %. Mild segmental systolic dysfunction (see wall motion). Infero-Basal: Hypokinetic. Right Ventricle Normal RV size. Normal systolic function. Atria Normal left atrium. Normal right atrium. Mitral Valve There is mild to moderate mitral annular calcification. Tricuspid Valve Normal tricuspid valve. Aortic Valve Trisinus/trileaflet aortic valve. Moderate focal aortic valve calcification. Pulmonic Valve Normal pulmonic valve. Great Vessels Normal aortic root. The pulmonary artery is normal size. Normal inferior vena cava. Pericardium/Pleural No pericardial effusion. MMode/2D Measurements & Calculations LVIDd: 4.8 cm IVSd: 1.1 cm Ao root diam: 3.2 cm LVIDs: 3.6 cm LVPWd: 0.99 cm RVDd: 3.0 cm FS: 24.7 % LAV(MOD-bp): 64.9 ml LVAd ap4: 28.9 cm2 LVAd ap2: 18.4 cm2 LAV(MOD-bp) Indexed: 36.9 ml/m2 LVLd ap4: 7.5 cm LVLd ap2: 7.1 cm LAV(MOD-sp2): 65.1 ml EDV(MOD-sp4): 91.8 ml EDV(MOD-sp2): 45.8 ml LAV(MOD-sp4): 65.0 ml EDV(sp4-el): 94.3 ml EDV(sp2-el): 40.3 ml LVAs ap4: 17.4 cm2 LVAs ap2: 11.9 cm2 LVLs ap4: 6.5 cm LVLs ap2: 5.5 cm ESV(MOD-sp4): 39.1 ml ESV(MOD-sp2): 20.9 ml ESV(sp4-el): 39.7 ml ESV(sp2-el): 21.9 ml EF(MOD-sp4): 57.4 % EF(MOD-sp2): 54.3 % EF(sp4-el): 57.9 % SV(MOD-sp4): 52.7 ml SV(MOD-sp2): 24.9 ml SV(sp4-el): 54.6 ml SI(MOD-sp4): 29.9 ml/m2 SI(MOD-sp2): 14.1 ml/m2 LA A4 area: 20.8 cm2 LA dimension(2D): 4.0 cm RA A4 area: 13.9 cm2 ECHO/Echo, Limited Study Interpretation Summary The left ventricular ejection fraction is 55 %. Normal LV size. Infero-Basal: Hypokinetic Mild segmental systolic dysfunction (see wall motion). Moderate focal aortic valve calcification. Ordering Physician: Nidhi Bradshaw Referring Physician: Lisandro Zaldivar Performed By: Jaqueline Vega, ZAC, RVT
--- NOTE | 2024-12-29 08:47 | PCM.PROGNOTE ---
Subjective Subjective Afebrile VSS -antihypertensives were held yesterday for a low blood pressure. Because of the new stroke we are allowing permissive hypertension. Blood pressure today is 159/69. It was 142/55 at at bedtime. Heart rate over the past 24 hours has ranged from 53-65. HR currently is 60. Lanoxin was held yesterday for the4 past 3 days due to HR less than 60. Will continue to hold the antihypertensives but, will restart Lanoxin to control the HR if he goes back into AF. Maintaining appropriate oxygen saturation on RA Oral intake - FOOD ate 75 to 100% of his breakfast today FLUIDS oral fluid intake yesterday was only 370 but he received IV fluids and the fluid balance for the day was +1667. Discussed with nursing - no problems that need addressed Reviewed the THERAPY notes -he had a shower with occupational therapy this morning. He ambulated to and from the bathroom contact-guard assist and hand-held assist at times. He was able to solve how to get out of the bathroom without voice cues. He stood at the sink and completed his grooming. He completed bathing at standby assist. He was also able to dress his upper body and his lower body at set up/standby assist. Did much better today than the previous few days. Medication list reviewed. D/W neurology....per neurology there is a new RMCA stroke instead of the [employer] stroke he had prior to admission to rehab. Still no reprot on the EEG. Neurology wants a new CTA of the head and neck and also a repeat TTE....this has been ordered. UA negative for infection. WBC is elevated but, he is on high dose steroids for suspected Lichen Planus.....possibly related to the immunologic drugs he is getting to treat the lung CA. He has AF and is on Eliquis but, he has now had 2 recent ischemic CVA's in different distributions.......due to stenosis or hypercoagulability due to CA and immunologics? Await the results of CTA. Objective Data Objective Data Vital Signs: Vital Signs Temp Pulse Resp BP Pulse Ox O2 Del Method 97.1 F L 60 16 158/69 H 100 Room Air 12/29/24 06:00 12/29/24 06:00 12/29/24 06:00 12/29/24 06:00 12/29/24 06:00 12/29/24 06:00 Oxygen Delivery Method Room Air Weight: 148 lb 2.41 oz Body Mass Index (BMI) 23.9 Intake & Output: Intake and Output for Last 24 Hours 12/27/24 12/28/24 12/29/24 23:59 23:59 23:59 Intake Total 1630 / 1730 2266.75 / 2416.75 946.25 / 946.25 Output Total 2050 / 0 600 / 1200 600 / 600 Balance -420 / -320 1666.75 / 1216.75 346.25 / 346.25 Lab / Micro Data 12/29/24 05:48 12/29/24 05:48 Labs: Laboratory Results - last 24 hr 12/28/24 14:15: Urine Color Yellow, Urine Clarity Clear, Urine pH 6.5, Ur Specific [place] 1.010, Urine Protein Negative, Urine Glucose (UA) Normal, Urine Ketones Negative, Urine Occult Blood 10 H, Urine Nitrite Negative, Urine Bilirubin Negative, Urine Urobilinogen Normal, Ur Leukocyte Esterase Negative, Urine RBC 0-5 SEEN, Urine WBC 0 SEEN, Ur Squamous Epith Cells 0 SEEN, Urine Bacteria 0 SEEN, Urine Mucus 0 SEEN 12/29/24 05:48: WBC 14.3 H, RBC 4.33 L, Hgb 12.8 L, Hct 38.6 L, MCV 89.1, MCH 29.6, MCHC 33.2, RDW Std Deviation 47.1 H, RDW Coeff of Gino 14.7 H, Plt Count 202, MPV 9.1, Immature Gran % (Auto) 0.800, Neut % (Auto) 85.0 H, Lymph % (Auto) 7.8 L, [place] % (Auto) 6.2, Eos % (Auto) 0.1, Baso % (Auto) 0.1, Absolute Neuts (auto) 12.1 H, Absolute Lymphs (auto) 1.11, Nucleated RBC % 0, Sodium 136, Potassium 4.7, Chloride 104, Carbon Dioxide 24.4, Anion Gap 8, BUN 20 H, Creatinine 0.77, Estim Creat Clear Calc 67.57, Est GFR (MDRD) Non-Af 91, BUN/Creatinine Ratio 26.2 H, Glucose 97, Calcium 8.1, Total Bilirubin 0.43, AST 26, ALT 48 H, Alkaline Phosphatase 66, Total Protein 6.0, Albumin 3.0 L, Globulin 3.0, Albumin/Globulin Ratio 1.0 Micro: Microbiology 12/15/24 15:40 Other - Penile Miscellaneous Culture - Final Dermacoccus / kytococcus sp. Streptococcus constellatus pha 12/15/24 15:40 Other - Penile Gram Stain - Final 12/15/24 15:30 Discharge - Eye Gram Stain - Final 12/15/24 15:30 Discharge - Eye Eye Culture - Final Staphylococcus aureus 12/15/24 15:30 Discharge - Eye Anaerobic Culture - Final Cutibacterium acnes Radiography Diagnostic Testing: Radiology Impression Brain MRI 12/28/24 13:31 IMPRESSION: Evolving subacute right frontotemporal lobe MCA distribution infarct as described above, with mass effect and no midline shift. No evidence of hemorrhagic conversion. Chronic microvascular ischemia and involutional changes. Reading [facility] [place] Physical Exam Const alert, oriented x3 and no apparent distress General Appearance: cooperative HEENT moist oral mucous membranes Resp normal respiratory effort and clear to auscultation bilaterally Effort and Inspection: Negative for tachypneic Cardio regular rate, regular rhythm and no gallops GI normal to inspection, nondistended, normoactive bowel sounds, soft to palpation and non-tender Extremity no calf tenderness General Extremity: Negative for edema Neuro Neuro Narrative: No ptosis of the left eye today. Less facial droop. Much more alert with crisp fluent speech. Ate 75-100% of breakfast and lunch. Still unable to advance past pureed textures. Less Left side neglect today and he is now scanning again to look to the left. Was able to figure out how to get out of the BR today when he was not facing the door with no VC's. Psych Psych Narrative: Thought process is much quicker today. 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 Continue therapy 2. CTA of the H&N today. 3. repeat ECHO today looking for clot 4. permissive hypertension......hold antihypertensives. Continue Lanoxin for rate control if he goes in to AF...has a hx of AVR 5. He has now had 2 strokes while on Eliquis. He has CA......do we need to transition to Lovenox......will discuss with neurology. 6. Await the results of the EEG. 7. Continue Keppra 750 mg twice daily. Insurance approved another week. Next update in 01/05. I left a with damon Munson updating her on recent testing and how he is doing today. Charges/Coding Visit Charges Inpatient E&M: 07862 Subs Hosp L2
[2024-12-29] MEDS: prednisoLONE soln 15 MG/5 ML UDC 10 MG PO ×3 (08:53→16:12)
[2024-12-29] MEDS: Aspirin 81 MG TAB.CHEW PO (08:54)
[2024-12-29] MEDS: levETIRAcetam Oral Solution 500 MG/5 ML 750 MG PO ×2 (08:54→22:05)
[2024-12-29] MEDS: Magnesium Chloride 64 MG Delay Rel.Tablet 128 MG PO (08:54)
[2024-12-29] MEDS: Senna/Docusate Sodium 1 Tablet 2 TABLET PO (08:54)
[2024-12-29] MEDS: Pantoprazole Sodium 20 MG Tablet PO ×2 (08:54→22:05)
[2024-12-29] MEDS: APIXABAN 5 MG TABLET PO ×2 (08:54→22:05)
[2024-12-29 09:08] VITALS: PULSE 63
[2024-12-29] MEDS: Digoxin 125 MCG Tablet PO (09:08)
--- NOTE | 2024-12-29 09:45 | CT_ITS ---
PROCEDURE: STROKE CTA HEAD AND NECK W/CON 12/29/2024 REASON FOR EXAM: NEW CVA TECHNIQUE: CTA imaging of the head and neck from the aortic arch to the skull vertex with intravenous contrast. 3D reconstructions. Coronal and Sagittal reconstruction series were provided. CONTRAST: Isovue 370 VOLUME: 90mL One or more dose reduction techniques were used (e.g., Automated exposure control, adjustment of the mA and/or kV according to patient size, use of iterative reconstruction technique). RADIATION DOSE SUMMARY: CTDlvol: 28 mGy DLP: 1630 mGycm COMPARISON: Prior CT scan of the brain dated December 27, 1999. FINDINGS: Aortic Arch: Normal size and branching pattern. Mild atherosclerotic plaque. Brachiocephalic and Subclavians: Mild atherosclerotic plaque without significant stenosis. RIGHT Carotid: Right CCA: Unremarkable. Right ICA: Unremarkable. Right ECA: Unremarkable. LEFT Carotid: Left CCA: Unremarkable. Left ICA: Minimal plaque formation at the origin of the left internal carotid artery. Maximum stenosis (NASCET): Minimal % Left ECA: Unremarkable. Vertebrals: Codominant. Arise from the subclavians. Both vertebrals form the basilar. RIGHT Vertebral: Unremarkable. LEFT Vertebral: Unremarkable. Anatomy: [place] anatomy is normal. Aneurysm or avm: No intracranial aneurysms or large vascular malformations are identified. Anterior cerebral arteries: Unremarkable: Middle cerebral arteries: Unremarkable. Basilar artery: Unremarkable. Posterior cerebral arteries: Unremarkable. Other major branches of the posterior circulation: Unremarkable. Major venous structures: Unremarkable. CT/STROKE CTA Head AND Neck W/Con IMPRESSION: RIGHT CAROTID: Unremarkable. LEFT CAROTID: Minimal calcific plaque at the origin of the left internal caroti d artery. VERTEBRALS: Unremarkable INTRACRANIAL: Unremarkable Reading Location: [place] [id number]
--- NOTE | 2024-12-29 10:59 | CASEMGMT ---
Social Work SW phoned dtr, Shelia, to update on insurance approval NRD 01/05. Dtr appreciative and inquired about further medical care. SW directed to the Dr, as that is out of this worker's scope. Though, explained once pt is medically stable, then this worker can refer to ALs. Dtr expressed understanding. SW will continue to follow for DC planning and support. Blaire Clark HUMAN RESOURCES BENEFITS ADMINISTRATOR QUALITY ASSURANCE MONITOR BODY
[2024-12-29] MEDS: Ensure Plus High Protein 120 ML LIQUID PO ×2 (12:11→16:11)
[2024-12-29 16:17] VITALS: BMI 23.9
[2024-12-29 18:00] VITALS: BP 107/59; BP 132/54; PULSE 64; RESP 16; TEMP 36.8; O2SAT 97
[2024-12-29] MEDS: Mirtazapine 15 MG Tablet PO (20:00)
[2024-12-29 21:30] VITALS: PULSE 64; RESP 16; O2SAT 97; BMI 23.9
[2024-12-29] MEDS: Atorvastatin Calcium 40 MG Tablet PO (22:05)
[2024-12-29] MEDS: MELATONIN 3 MG TABLET PO (22:05)
--- NOTE | 2024-12-29 23:24 | NURSING ---
2200 pt became unbalanced when attempting to sit on the toilet, staff grabbed the pt by his sweatshirt to keep him from falling on to the floor, in the process pt's port needle was pulled out. rn notified right away and the dressing was applied by the rn. supervisor lending activities made aware when she was completing rounds. pt gait was noted to be more wobbly this hs with increased drooling. pt is alert and oriented x's 2 and needed extra cueing to complete a task this hs. increased incontinence was noted as well. 2330 rn and supervisor lending activities in with pt currently
[2024-12-30] MEDS: Levothyroxine 150 MCG Tablet PO (05:32)
[2024-12-30] MEDS: Menthol/Lanolin/Calamine/Znox 113 GM Tube 1 APPLIC TOPICAL ×2 (05:32→20:25)
[2024-12-30] MEDS: Nystatin Powder 15gm Bottle 1 APPLIC TOPICAL ×2 (05:33→20:28)
[2024-12-30 06:00] VITALS: BP 134/86; PULSE 68; RESP 16; TEMP 36.6; O2SAT 93; BMI 24.0
[2024-12-30] MEDS: Aspirin 81 MG TAB.CHEW PO (08:33)
[2024-12-30] MEDS: APIXABAN 5 MG TABLET PO ×2 (08:34→20:26)
[2024-12-30] MEDS: prednisoLONE soln 15 MG/5 ML UDC 10 MG PO ×3 (08:34→16:33)
[2024-12-30] MEDS: levETIRAcetam Oral Solution 500 MG/5 ML 750 MG PO ×2 (08:35→20:29)
[2024-12-30] MEDS: Magnesium Chloride 64 MG Delay Rel.Tablet 128 MG PO (08:35)
[2024-12-30] MEDS: Pantoprazole Sodium 20 MG Tablet PO ×2 (08:36→20:28)
[2024-12-30 10:00] VITALS: PULSE 64; RESP 16; O2SAT 98
[2024-12-30] MEDS: Ensure Plus High Protein 120 ML LIQUID PO ×2 (11:20→16:33)
[2024-12-30 13:56] LABS: Bedside Glucose 89 mg/dL (74-106)
[2024-12-30 16:37] VITALS: BP 144/66; PULSE 72
[2024-12-30] MEDS: Digoxin 125 MCG Tablet PO (16:37)
[2024-12-30 17:00] VITALS: BMI 24.0
[2024-12-30 17:48] VITALS: BP 140/62; PULSE 73; RESP 16; TEMP 36.8; O2SAT 100
[2024-12-30] MEDS: Mirtazapine 15 MG Tablet PO (20:25)
[2024-12-30] MEDS: Atorvastatin Calcium 40 MG Tablet PO (20:27)
[2024-12-30] MEDS: MELATONIN 3 MG TABLET PO (20:28)
[2024-12-31 01:40] VITALS: BMI 24.0
[2024-12-31] MEDS: Menthol/Lanolin/Calamine/Znox 113 GM Tube 1 APPLIC TOPICAL ×2 (04:54→20:47)
[2024-12-31] MEDS: Levothyroxine 150 MCG Tablet PO (04:54)
[2024-12-31] MEDS: Nystatin Powder 15gm Bottle 1 APPLIC TOPICAL ×2 (04:54→20:47)
[2024-12-31 04:58] VITALS: BP 142/72; PULSE 68; RESP 16; TEMP 37.1; O2SAT 99
[2024-12-31] MEDS: prednisoLONE soln 15 MG/5 ML UDC 10 MG PO ×3 (10:24→16:43)
[2024-12-31] MEDS: Magnesium Chloride 64 MG Delay Rel.Tablet 128 MG PO (10:25)
[2024-12-31] MEDS: Ensure Plus High Protein 120 ML LIQUID PO ×3 (10:25→16:42)
[2024-12-31] MEDS: APIXABAN 5 MG TABLET PO ×2 (10:25→20:43)
[2024-12-31] MEDS: Aspirin 81 MG TAB.CHEW PO (10:25)
[2024-12-31] MEDS: levETIRAcetam Oral Solution 500 MG/5 ML 750 MG PO ×2 (10:26→20:45)
[2024-12-31] MEDS: Pantoprazole Sodium 20 MG Tablet PO ×2 (10:27→20:44)
[2024-12-31] MEDS: Senna/Docusate Sodium 1 Tablet 2 TABLET PO (10:27)
[2024-12-31 14:45] VITALS: BMI 24.0
[2024-12-31 16:45] VITALS: PULSE 79
[2024-12-31] MEDS: Digoxin 125 MCG Tablet PO (16:45)
[2024-12-31 18:00] VITALS: BP 137/53; PULSE 79; RESP 16; TEMP 36.1; O2SAT 100
[2024-12-31] MEDS: MELATONIN 3 MG TABLET PO (20:43)
[2024-12-31] MEDS: Atorvastatin Calcium 40 MG Tablet PO (20:44)
[2024-12-31] MEDS: Mirtazapine 15 MG Tablet PO (20:44)
[2025-01-01 00:53] VITALS: BMI 24.0
[2025-01-01] MEDS: Levothyroxine 150 MCG Tablet PO (05:23)
[2025-01-01] MEDS: Menthol/Lanolin/Calamine/Znox 113 GM Tube 1 APPLIC TOPICAL ×2 (05:23→20:42)
[2025-01-01] MEDS: Nystatin Powder 15gm Bottle 1 APPLIC TOPICAL ×2 (05:23→20:43)
[2025-01-01 05:27] VITALS: BP 122/62; PULSE 63; RESP 16; TEMP 36.4; O2SAT 99
[2025-01-01] MEDS: prednisoLONE soln 15 MG/5 ML UDC 10 MG PO ×3 (08:01→17:01)
[2025-01-01] MEDS: Aspirin 81 MG TAB.CHEW PO (08:01)
[2025-01-01] MEDS: Ensure Plus High Protein 120 ML LIQUID PO ×3 (08:01→17:03)
[2025-01-01] MEDS: Pantoprazole Sodium 20 MG Tablet PO ×2 (09:25→20:44)
[2025-01-01] MEDS: Senna/Docusate Sodium 1 Tablet 2 TABLET PO ×2 (09:25→20:44)
[2025-01-01] MEDS: levETIRAcetam Oral Solution 500 MG/5 ML 750 MG PO ×2 (09:25→20:44)
[2025-01-01] MEDS: APIXABAN 5 MG TABLET PO ×2 (09:25→20:44)
[2025-01-01] MEDS: Magnesium Chloride 64 MG Delay Rel.Tablet 128 MG PO (09:25)
[2025-01-01 14:14] VITALS: BMI 24.0
[2025-01-01 17:02] VITALS: PULSE 74
[2025-01-01] MEDS: Digoxin 125 MCG Tablet PO (17:02)
[2025-01-01 18:00] VITALS: BP 132/63; PULSE 73; RESP 16; TEMP 36.3; O2SAT 100
[2025-01-01] MEDS: Mirtazapine 15 MG Tablet PO (19:39)
[2025-01-01 19:55] VITALS: BMI 24.0
[2025-01-01] MEDS: MELATONIN 3 MG TABLET PO (20:43)
[2025-01-01] MEDS: Atorvastatin Calcium 40 MG Tablet PO (20:43)
[2025-01-01 22:00] VITALS: PULSE 73; RESP 16; O2SAT 96
[2025-01-02] MEDS: Levothyroxine 150 MCG Tablet PO (05:16)
[2025-01-02] MEDS: Nystatin Powder 15gm Bottle 1 APPLIC TOPICAL ×2 (05:16→20:45)
[2025-01-02] MEDS: Menthol/Lanolin/Calamine/Znox 113 GM Tube 1 APPLIC TOPICAL ×2 (05:16→20:45)
[2025-01-02 06:00] VITALS: BP 140/68; PULSE 66; RESP 16; TEMP 36.4; O2SAT 98; BMI 23.3
[2025-01-02] MEDS: prednisoLONE soln 15 MG/5 ML UDC 10 MG PO ×3 (08:32→17:10)
[2025-01-02] MEDS: levETIRAcetam Oral Solution 500 MG/5 ML 750 MG PO ×2 (08:32→20:42)
[2025-01-02] MEDS: Magnesium Chloride 64 MG Delay Rel.Tablet 128 MG PO (08:33)
[2025-01-02] MEDS: APIXABAN 5 MG TABLET PO ×2 (08:33→20:42)
[2025-01-02] MEDS: Aspirin 81 MG TAB.CHEW PO (08:33)
[2025-01-02] MEDS: Ensure Plus High Protein 120 ML LIQUID PO ×3 (08:33→17:10)
[2025-01-02] MEDS: Pantoprazole Sodium 20 MG Tablet PO ×2 (08:33→20:42)
[2025-01-02 10:00] VITALS: PULSE 70; RESP 14; O2SAT 95
--- NOTE | 2025-01-02 12:52 | CASEMGMT ---
Addendum entered by Blaire Clark 01/02/25 16:12: Received call from [facility] at [facility]. He received the referral and the clinical team is reviewing. The dtr is assisting with a virtual assessment on 01/04 at 1630. [facility] cannot accommodate pt prior to 01/09, as the room will not be ready prior. SW to provide that information to insurance on 01/05, but they do not have to approve additional time. Tan expressed understanding. ANNALISE and [facility] to remain in contact for coordination of DC plans. Addendum entered by Blaire Clark 01/02/25 14:45: ANNALISE received call from dtr, Shelia, to update this worker the family toured ALs and their FOC is [facility] in [place]. ANNALISE faxed referral to [facility]. Will await outcome. Original Note: Social Work IDT met with patient and dtr Jeimy at bedside, and dtr Elana participated via phone, for Team meeting. Discussed patient's progress in PT/OT/ST/SN. Educated to On license of [facility] insurance with NRD 01/05, and if not approved continued stay, LCD is 01/07. Pt is medically stable. See note for details. SW to fax referrals to both ALs of choice to begin reviewing and schedule onsite, if needed from ALs. Team noted pt's fatigue and fluctuation with improvements. ANNALISE will continue collaborating with family on DC planning. Blaire Clark MSW SENIOR SYSTEMS SOFTWARE ENGINEER
[2025-01-02 17:00] VITALS: BMI 23.3
[2025-01-02 17:10] VITALS: PULSE 64
[2025-01-02] MEDS: Digoxin 125 MCG Tablet PO (17:10)
--- NOTE | 2025-01-02 17:52 | PCM.PROGNOTE ---
Subjective Subjective Elvin was seen on team rounds today. His daughter Jeimy was present in the room. Afebrile VSS -blood pressure over the past 48 hours has ranged from 122/62 to 140/68. Lisinopril and metoprolol are still on hold. Maintaining appropriate oxygen saturation on RA Oral intake - FOOD intake is highly variable. Family has been bringing in some food for him which she has been eating. FLUIDS very poor. P.o. intake yesterday was 550 and today so far he has only had 400. Discussed with nursing - no problems that need addressed Reviewed the THERAPY notes - He is motivated to do therapy and never refuses but, he has poor exercise tolerance. By the end of the session he is tired and naps. Medication list reviewed. The episodic increase in facial droop, Left eye ptosis and increased Left side weakness has resolved. It is not the Keppra that seems to make him sleepy.......he was very alert when I saw him today.......he just does not have endurance. After he rests after therapy he is able to do another session. Not making progress with therapy and in fact he is declining. He is coughing and drooling when attempts to drink thin liquids. Denies lightheadedness, cephalgia, SOB, CP, N/V/abd pain, dysuria. Objective Data Objective Data Vital Signs: Vital Signs Temp Pulse Resp BP Pulse Ox O2 Del Method 97.5 F L 64 14 140/68 H 95 Room Air 01/02/25 06:00 01/02/25 17:10 01/02/25 10:00 01/02/25 06:00 01/02/25 10:00 01/02/25 10:00 Oxygen Delivery Method Room Air Weight: 144 lb 13.499 oz Body Mass Index (BMI) 23.3 Intake & Output: Intake and Output for Last 24 Hours 12/31/24 01/01/25 01/02/25 23:59 23:59 23:59 Intake Total 770 / 770 550 / 550 400 / 400 Output Total 250 / 450 400 / 400 350 / 350 Balance 520 / 320 150 / 150 50 / 50 Lab / Micro Data 01/03/25 05:20 01/03/25 05:20 Micro: Microbiology 12/15/24 15:40 Other - Penile Miscellaneous Culture - Final Dermacoccus / kytococcus sp. Streptococcus constellatus pha 12/15/24 15:40 Other - Penile Gram Stain - Final 12/15/24 15:30 Discharge - Eye Gram Stain - Final 12/15/24 15:30 Discharge - Eye Eye Culture - Final Staphylococcus aureus 12/15/24 15:30 Discharge - Eye Anaerobic Culture - Final Cutibacterium acnes Physical Exam Const Constitutional Narrative: He was alert when I spoke to him today and his voice projected well. Did not look to be in any distress. HEENT HEENT Narrative: Oral fluid intake is poor. There is Dc from his eyes again and the lid margins are more erythematous. Mouth: dry mucous membranes Neck supple Resp normal respiratory effort and clear to auscultation bilaterally Resp Narrative: No cough. Effort and Inspection: Negative for tachypneic, respiratory distress or labored Cardio regular rate, regular rhythm and no gallops Cardio Narrative: no ectopy GI normal to inspection, nondistended, normoactive bowel sounds, soft to palpation and non-tender GI Narrative: No guarding with palpation Extremity Negative for no calf tenderness General Extremity: Negative for edema Skin Rashes: no rashes Neuro Neuro Narrative: no big changes. Still with loss of vision in the left eye laterally. Weak on the left side but, not really worse than the end of last week. Was able to tell me the month and his age and where he is. 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 Continue therapy 2. Check a BMP and a CBC with differential in the a.m. 3. Check orthostatics in the a.m. 4. Continue to encourage increased fluid intake. 5. Continue Keppra 6. Family still hoping to get him to assisted living somewhere in [place]. 7. Concerned about swallowing. Not able to tolerate thin liquids without coughing and drooling. Will discuss with ST. Charges/Coding Visit Charges Inpatient E&M: 74310 Subs Hosp L2
[2025-01-02 18:00] VITALS: BP 150/64; PULSE 64; RESP 17; TEMP 36.3; O2SAT 99
[2025-01-02 19:10] VITALS: PULSE 60; RESP 12
[2025-01-02] MEDS: Mirtazapine 15 MG Tablet PO (19:33)
[2025-01-02] MEDS: Atorvastatin Calcium 40 MG Tablet PO (20:42)
[2025-01-02] MEDS: MELATONIN 3 MG TABLET PO (20:42)
[2025-01-02 21:00] VITALS: BMI 23.3
[2025-01-03] MEDS: Levothyroxine 150 MCG Tablet PO (04:45)
[2025-01-03] MEDS: Nystatin Powder 15gm Bottle 1 APPLIC TOPICAL ×2 (04:45→22:00)
[2025-01-03] MEDS: Menthol/Lanolin/Calamine/Znox 113 GM Tube 1 APPLIC TOPICAL ×2 (04:45→21:59)
[2025-01-03 05:49] LABS: Absolute Lymphocyte Count 1.14 X10^3/uL (0.83-4.51); Absolute Neutrophil Count 9.9 X10^3/uL (2.0-7.7); Basophil# 0.02 X10^3/uL; Basophil% 0.2 % (0-1); Eosinophil# 0.01 X10^3/uL; Eosinophils% 0.1 % (0-5); Hematocrit 38.8 % (40-54); Hemoglobin 12.9 g/dL (13.0-16.5); Lymphocyte # 1.14 X10^3/ul (0.83-4.51); Lymphocyte % 9.7 % (19-41); Mean Corp Hgb Conc 33.2 g/dL (32-36); Mean Corpuscular Hgb 29.8 pg (27.0-32.0); Mean Corpuscular Volume 89.6 fL (80-94); Mean Platelet Vol. 9.6 fl (6.2-12.0); Monocyte# 0.63 X10^3/uL; Monocyte% 5.4 % (0-10); NRBC Flagged by Analyzer 0 % (0-5); Neutrophil # 9.85 X10^3/uL (2.7-7.7); Neutrophil % 83.9 % (47-70); Platelet Count 149 K/mm3 (150-450); RBC Distribution Width CV 14.8 % (11.6-14.6); RBC Distribution Width SD 48.4 fl (35.1-43.9); Red Blood Count 4.33 M/mm3 (4.6-6.2); White Blood Count 11.7 K/mm3 (4.4-11.0)
[2025-01-03 06:00] VITALS: BP 154/72; PULSE 61; RESP 16; TEMP 36.3; O2SAT 16
[2025-01-03 06:14] LABS: Anion Gap 8 (5-15); BUN 25 mg/dL (4-19); BUN/Creat Ratio 30.7 RATIO (10-20); Calcium,Total 8.3 mg/dL (7.6-11.0); Carbon Dioxide 27.1 mmol/L (21.0-32.0); Chloride 102 mmol/L (98-108); EST Glomerular Filtration Rate 90 (>60); Estimated Creatinine Clearance 67.57 ml/min (50-250); Glucose 96 mg/dL (70-99); Potassium 4.3 mmol/L (3.3-5.1); Sodium Level 137 mmol/L (133-145)
[2025-01-03 07:41] VITALS: BP 103/52; BP 124/52; BP 158/72; PULSE 58; PULSE 61; PULSE 74
[2025-01-03] MEDS: levETIRAcetam Oral Solution 500 MG/5 ML 750 MG PO ×2 (08:30→21:58)
[2025-01-03] MEDS: APIXABAN 5 MG TABLET PO ×2 (08:30→21:57)
[2025-01-03] MEDS: prednisoLONE soln 15 MG/5 ML UDC 10 MG PO ×3 (08:30→17:28)
[2025-01-03] MEDS: Ensure Plus High Protein 120 ML LIQUID PO ×2 (08:31→12:06)
[2025-01-03] MEDS: Pantoprazole Sodium 20 MG Tablet PO ×2 (08:31→21:57)
[2025-01-03] MEDS: Aspirin 81 MG TAB.CHEW PO (08:31)
[2025-01-03] MEDS: Magnesium Chloride 64 MG Delay Rel.Tablet 128 MG PO (08:31)
[2025-01-03 10:00] VITALS: PULSE 64; RESP 17; O2SAT 96
[2025-01-03] MEDS: Tuberculin,Purif.prot.deriv. 50 TU/ML Vial 0.1 ML ID (11:16)
[2025-01-03 13:10] LABS: Digoxin Level 0.71 ng/mL (0.00-2.00)
--- NOTE | 2025-01-03 15:17 | PN_ITS ---
Subjective Subjective Afebrile VSS -heart rate is ranging from 60-74. The rhythm is regular. Blood pressure is ranged from 103/52 to 154/72 the past 24 hours. Maintaining appropriate oxygen saturation on RA Oral intake - FOOD ate 75 to 100% of his breakfast today and his lunch. The nurse aide is feeding him. FLUIDS very poor. Unable to swallow thin liquids without choking and drooling. Discussed with nursing -he is now incontinent of urine. He is also confused today. Very fatigued.....not able to do therapy today. Reviewed the THERAPY notes Medication list reviewed. All lab was personally reviewed. Dig level is 0.71 and the heart rate is within normal limits and the rhythm is regular. The white blood cell count is 11.7 which is down from 14.3 last week and he remains on prednisone 10 mg 3 times daily. He has been afebrile. Hemoglobin is stable at 12.9. Platelets are 149,000 today. Sodium is stable at 137 and the potassium today is normal at 4.3. Serum bicarb is 27. The BUN is up to 25 from 20 on 12/29/2024. Creatinine is stable at 0.8. Calcium is normal. The culture from his spine done yesterday is growing Staph aureus. He also grew methicillin sensitive Staph aureus from his left eye early in the admission and conjunctivitis resolved with treatment. He was treated with neomycin/polymyxin/dexamethasone. Elvin is very quiet today. He answers me when I talk with him. He can not tell me his age and he thinks he is in [place]. He denies VARGAS, lightheadedness, pain, nausea. when I ask him if he needs anything he tells me no, he is OK. Sleeping a lot. Does not appear to be in any distress. Objective Data Objective Data Vital Signs: Vital Signs Temp Pulse Resp BP Pulse Ox O2 Del Method 97.4 F L 64 17 103/52 L 96 Room Air 01/03/25 06:00 01/03/25 10:00 01/03/25 10:00 01/03/25 07:41 01/03/25 10:01/03/25 10:00 Oxygen Delivery Method Room Air Weight: 144 lb 13.499 oz Body Mass Index (BMI) 23.3 Intake & Output: Intake and Output for Last 24 Hours 03/01/02/25 01/03/25 23:59 23:59 23:59 Intake Total 550 / 550 520 / 520 240 / 240 Output Total 400 / 400 2 / 2 Balance 150 / 150 520 / 520 238 / 238 Lab / Micro Data 01/03/25 05:20 01/03/25 05:20 Labs: Laboratory Results - last 24 hr 01/03/25 05:20: WBC 11.7 H, RBC 4.33 L, Hgb 12.9 L, Hct 38.8 L, MCV 89.6, MCH 29.8, MCHC 33.2, RDW Std Deviation 48.4 H, RDW Coeff of Gino 14.8 H, Plt Count 149 L, MPV 9.6, Immature Gran % (Auto) 0.700, Neut % (Auto) 83.9 H, Lymph % (Auto) 9.7 L, [place] % (Auto) 5.4, Eos % (Auto) 0.1, Baso % (Auto) 0.2, Absolute Neuts (auto) 9.9 H, Absolute Lymphs (auto) 1.14, Nucleated RBC % 0, Sodium 137, Potassium 4.3, Chloride 102, Carbon Dioxide 27.1, Anion Gap 8, BUN 25 H, Creatinine 0.80, Estim Creat Clear Calc 67.57, Est GFR (MDRD) Non-Af 90, B UN/Creatinine Ratio 30.7 H, Glucose 96, Calcium 8.3 01/03/25 08:47: Digoxin 0.71 Micro: Microbiology 01/02/25 16:00 Conjunctiva Gram Stain - Final 01/02/25 16:00 Conjunctiva Eye Culture - Preliminary Staphylococcus aureus 12/15/24 15:40 Other - Penile Miscellaneous Culture - Final Dermacoccus / kytococcus sp. Streptococcus constellatus pha 12/15/24 15:40 Other - Penile Gram Stain - Final 12/15/24 15:30 Discharge - Eye Gram Stain - Final 12/15/24 15:30 Discharge - Eye Eye Culture - Final Staphylococcus aureus 12/15/24 15:30 Discharge - Eye Anaerobic Culture - Final Cutibacterium acnes Physical Exam Const Constitutional Narrative: sleepy and confused. Does not appear to have any discomfort. He is pleasant. No restless and not fidgeting. He is able to follow simple commands for me. He seems very peaceful. Makes good eye contact when I am speaking to him. Has trouble initiating activity without cueing. He is pleasant. HEENT head/scalp atraumatic HEENT Narrative: denies mouth pain. He has DC from his eyes again and the lid margins are red. He has been rubbing them so I think they are bothering him Mouth: dry mucous membranes Neck supple Resp normal respiratory effort Resp Narrative: Lying flat in bed with no shortness of breath and no tachypnea. Lungs are clear anterior and lateral. He is not coughing. Respirations are not labored. There is no accessory muscle use. Cardio regular rate, regular rhythm, no rub and no gallops Cardio Narrative: No ectopy. No JVD. GI normal to inspection, nondistended, normoactive bowel sounds, soft to palpation and non-tender GI Narrative: No guarding with palpation. Bladder does not feel distended. Extremity no calf tenderness General Extremity: Negative for edema Skin Rashes: no rashes Neuro Neuro Narrative: He is able to follow simple commands -sometimes requires some verbal cueing and sometimes I have to initiate the activity for him and then he is able to maintain the activity. The left eye does not track entirely to the lateral canthus. He still has visual field cut in the left lateral superior and inferior quadrants. The right eye tracks well. No ptosis of the left upper lid. He has some left facial droop but better than it has been in the past. Decreased strength in the left upper extremity but he is able to lift it off the bed. He has a weak handgrip on the left. When I lifted his left leg he held it up for 1 to 2 seconds and then it fell to the bed. No tremoring. No muscle rigidity. 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 Unable to do therapy. He is experiencing progressive decline in his ability to function and think. I suspect he has given up. We asked Agricultural Extension Specialist Serge to see him and Elvin denies feeling afraid. He hopes to get better but when asked would it be OK if he didn't he said yes. Serge prayed with him. I called his dtr Jeimy and discussed my findings. We discussed code status and she would like the code status changed to DNR CCA with no intubation. She will communicate with her sisters. He seems to do OK with pureed foods and is eating when nursing is feeding him. Unable to swallow thin liquids without choking and drooling. Will change the diet to regular with pureed foods and pudding thick liquids. Will start and IV and gently hydrate. Jeimy is going to talk with her family. We discussed hospice referral. I will reconnect with Jeimy tomorrow after she talks with her family. CODE STATUS was changed to DNR CC arrest without intubation in the EMR. Charges/Coding Visit Charges Inpatient E&M: 32781 Subs Hosp L2
[2025-01-03] MEDS: 0.9% Normal Saline (1000mL) 1,000 ML 75 ML IV (15:35)
--- NOTE | 2025-01-03 16:12 | CHAPLAIN ---
Type of Pastoral Visit ___ Initial Visit _x__ Follow-up Visit ___ On-call Visit ___ General Patient Visit ___ Spiritual Assessment ___ Family Conference ___ Bereavement ___ Rapid Response ___ Code Blue ___ Other (describe below) Pastoral Care Referral From ___ Patient ___ Family ___ Nurse _x__ Physician ___ Anime Artist ___ Disk And Tape Machine Tender ___ Other (describe below) Sacrament/Intervention ___ Active listening ___ Anointing ___ Protestant ___ Bereavement ___ Communion _x__ Yael exploration ___ ___ Life review _x__ Prayer ___ Reconciliation ___ Sacrament of Sick _x__ Supportive presence ___ Wedding ___ Other (describe below) Pastoral Comments DR requested a visit to this patient who had been seen previously; pt seems to have given up per the DR evaluation; pt was awake but in bed lying very still; reintroduced self to the patient who recognized the same; pt answers questions but is slow to respond and gives only one word answers; pt denies worries or fears; pt acknowledges that he would like to get better but also admits that if he dies it is okay too; pt welcomes prayer and presence but does not engage in conversation and is quite lethargic; pt is asked about input from his family and he says they are in agreement
[2025-01-03] MEDS: Neomycin/Polymyxin/Dexameth 5ML OPTH.BTL 2 DRP EACH EYE (17:28)
[2025-01-03 17:29] VITALS: PULSE 54
[2025-01-03 18:00] VITALS: BP 136/64; PULSE 66; RESP 12; TEMP 36.9; O2SAT 98
[2025-01-03 19:35] VITALS: RESP 15; O2SAT 97
[2025-01-03 20:32] VITALS: BMI 23.3
[2025-01-03] MEDS: Mirtazapine 15 MG Tablet PO (21:56)
[2025-01-03] MEDS: MELATONIN 3 MG TABLET PO (21:57)
[2025-01-03] MEDS: Senna/Docusate Sodium 1 Tablet 2 TABLET PO (21:57)
[2025-01-03] MEDS: Atorvastatin Calcium 40 MG Tablet PO (21:57)
[2025-01-04] MEDS: Neomycin/Polymyxin/Dexameth 5ML OPTH.BTL 2 DRP EACH EYE ×4 (00:15→17:29)
[2025-01-04] MEDS: 0.9% Normal Saline (1000mL) 1,000 ML 75 ML IV (04:41)
[2025-01-04 04:58] VITALS: BMI 23.2
[2025-01-04] MEDS: Menthol/Lanolin/Calamine/Znox 113 GM Tube 1 APPLIC TOPICAL (05:36)
[2025-01-04] MEDS: Nystatin Powder 15gm Bottle 1 APPLIC TOPICAL (05:37)
[2025-01-04] MEDS: Levothyroxine 150 MCG Tablet PO (05:37)
[2025-01-04 06:00] VITALS: BP 142/86; PULSE 104; RESP 15; TEMP 36.3; O2SAT 94
--- NOTE | 2025-01-04 08:17 | CASEMGMT ---
Addendum entered by Blaire Clark 01/04/25 09:35: Hospice nurse scheduled with dtr Elana to assess pt at 1330. IDT updated. Original Note: Social Work Dr Bradshaw notified this worker that she spoke with pt and family last evening and recommended hospice. All parties agreeable. requesting IPU. SW sent referral to [facility] via secure email. SW to update [facility] once outcome is known for IPU. Will continue to follow. Blaire Clark SALON DESIGNER COLD REDUCTION ROLLER
[2025-01-04] MEDS: prednisoLONE soln 15 MG/5 ML UDC 10 MG PO (08:30)
[2025-01-04] MEDS: Aspirin 81 MG TAB.CHEW PO (08:31)
--- NOTE | 2025-01-04 10:58 | PCM.PROGNOTE ---
Subjective Subjective Afebrile blood pressure is stable. Heart rate is 104 today and he is back in atrial fibrillation. Lanoxin level yesterday was good. Postvoid residual yesterday was less than 100. Remains incontinent of urine. Very somnolent today. could not take his AM meds today. No seizure activity. Appears to be resting comfortably. Not restless. He is not tachypneic and respirations are not labored. CTA anterior and lateral. Eyes are less irritated today since started on eye drops to treat S Aureus conjunctivitis. Abdomen is soft and nondistended. Low-frequency bowel sounds are present. No guarding with palpation. No peripheral edema. Objective Data Objective Data Vital Signs: Vital Signs Temp Pulse Resp BP Pulse Ox O2 Del Method 97.3 F L 104 H 15 142/86 H 94 Room Air 01/04/25 06:00 01/04/25 06:00 01/04/25 06:00 01/04/25 06:00 01/04/25 06:00 01/04/25 06:00 Oxygen Delivery Method Room Air Weight: 143 lb 15.39 oz Body Mass Index (BMI) 23.2 Intake & Output: Intake and Output for Last 24 Hours 01/02/25 01/03/25 01/04/25 23:59 23:59 23:59 Intake Total 520 / 520 350 / 350 1042.5 / 1042.5 Output Total 82 / 82 Balance 520 / 520 268 / 268 1042.5 / 1042.5 Lab / Micro Data 01/03/25 05:20 01/03/25 05:20 Labs: Laboratory Results - last 24 hr 01/03/25 08:47: Digoxin 0.71 Micro: Microbiology 01/02/25 16:00 Conjunctiva Gram Stain - Final 01/02/25 16:00 Conjunctiva Eye Culture - Final Staphylococcus aureus 12/15/24 15:40 Other - Penile Miscellaneous Culture - Final Dermacoccus / kytococcus sp. Streptococcus constellatus pha 12/15/24 15:40 Other - Penile Gram Stain - Final 12/15/24 15:30 Discharge - Eye Gram Stain - Final 12/15/24 15:30 Discharge - Eye Eye Culture - Final Staphylococcus aureus 12/15/24 15:30 Discharge - Eye Anaerobic Culture - Final Cutibacterium acnes Assessment & Plan Assessment/Plan (1) Nonconvulsive seizure: (2) Extension of stroke: (3) Physical debility: (4) Ischemic cerebrovascular accident (CVA): (5) Aphasia: (6) Dysarthria: (7) Oropharyngeal dysphagia: (8) Cognitive dysfunction: (9) Stomatitis: (10) Atrial fibrillation with RVR: (11) Adrenal insufficiency: (12) Dehydration: (13) Hypokalemia: (14) Acute renal failure: QUALIFIERS: Acute renal failure type: unspecified Qualified Code(s): N17.9 - Acute kidney failure, unspecified PLAN: Plan 1. Hospice consulted earlier this a.m. and will see the patient at approximately 130 this afternoon. 2. Discontinue all nonessential medications. MAI Sandy and place an order for Ativan Intensol for restlessness/seizures. 3. Discontinue IV fluids after the current IV has infused. 4. He is in A-fib with a mildly increased heart rate today. Unable to take his oral medications today. Will give Lanoxin 0.25 mg IV x 1. 5. Continue the eyedrops. 6. Roxanol sublingual/p.o. for pain/restlessness
[2025-01-04] MEDS: 0.9% Saline Lock 10 ML Syringe IV (11:59)
[2025-01-04 12:00] VITALS: BP 114/61; PULSE 84
[2025-01-04] MEDS: Digoxin 250 MCG/ML Ampul IV (12:00)
--- NOTE | 2025-01-04 13:47 | PCM.DC.SUM ---
Providers Date of Admission: 12/15/24 Date of Discharge: 01/04/25 Primary Care Physician: Dr. Lisandro Zaldivar MD Consultations 01/04/25 08:14 Consult: Hospice / Palliative Care Routine Consulting Provider: [facility] Reason for Consult: HOSPICE: IPU - stroke, nonconvulsive seizure, lung cancer with METS EMERGENT Consult: Yes MD Notified: Yes Date Notified: 01/04/25 Time Notified: 08:14 Method of Notification: Text Reason For Visit: STROKE Diagnosis Discharge Diagnosis (1) Physical debility: Status: Acute Code(s): R53.81 - Other malaise (2) Ischemic cerebrovascular accident (CVA): Status: Acute Code(s): I63.9 - Cerebral infarction, unspecified (3) Extension of stroke: Status: Acute Code(s): I63.9 - Cerebral infarction, unspecified (4) 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 Code(s): G40.901 - Epilepsy, unspecified, not intractable, with status epilepticus (5) Aphasia: Status: Acute Code(s): R47.01 - Aphasia (6) Dysarthria: Status: Acute Code(s): R47.1 - Dysarthria and anarthria (7) Oropharyngeal dysphagia: Status: Acute Code(s): R13.12 - Dysphagia, oropharyngeal phase (8) Cognitive dysfunction: Status: Acute Code(s): F09 - Unspecified mental disorder due to known physiological condition (9) Stomatitis: Status: Resolved Code(s): K12.1 - Other forms of stomatitis (10) Atrial fibrillation with RVR: Status: Resolved Code(s): I48.91 - Unspecified atrial fibrillation (11) Adrenal insufficiency: Status: Chronic Code(s): E27.40 - Unspecified adrenocortical insufficiency (12) Dehydration: Status: Acute Code(s): E86.0 - Dehydration (13) Hypokalemia: Status: Resolved Code(s): E87.6 - Hypokalemia (14) Acute renal failure: Status: Acute Code(s): N17.9 - Acute kidney failure, unspecified Qualifiers: Acute renal failure type: unspecified Qualified Code(s): N17.9 - Acute kidney failure, unspecified Plan Met with hospice nurse. Elvin will be moved to the in hospice unit today. Medications at Discharge Home Medications Handicap Placard #1 ea 07/30/23 atorvastatin 40 mg tablet 40 mg PO QHS cholesterol 10/25/24 hydrocortisone 5 mg tablet 5 mg PO 1300 adrenal gland 10/25/24 hydrocortisone 5 mg tablet 10 mg PO .am adrenal gland 10/25/24 apixaban 5 mg tablet (Eliquis) 5 mg PO BID AFIB 30 days #60 tabs 10/27/24 furosemide 20 mg tablet (Lasix) 20 mg PO DAILY fluid 1 month #30 tabs 10/27/24 mirtazapine 15 mg tablet 7.5 mg PO QHS Mood 11/09/24 aspirin 81 mg chewable tablet 81 mg PO BREAKFAST heart health #0 tabs 12/15/24 food supplemt, lactose-reduced 0.08 gram-1.5 kcal/mL oral liquid (Ensure Plus High Protein) 120 ml PO TIDCM supplement #0 mL 12/15/24 levothyroxine 150 mcg tablet 150 mcg PO DAILY thyroid 12/15/24 metoprolol succinate 25 mg tablet,extended release 24 hr 25 mg PO BID blood pressure #0 tabs 12/15/24 nitrofurantoin monohydrate/macrocrystals 100 mg capsule 100 mg PO BID UTI 5 days #0 caps 12/15/24 saliva substitute combo no.9 (Biotene Dry Mouth Oral Rinse mouthwash) 15 ml mucous membrane 5X/DAY PRN Dry Mouth #0 mL 12/15/24 Hospital Course Operations None Summary of Care Provided Minutes Spent on Discharge: 35 Hospital Course: Elvin Mott is a 79 YO male with a hx of non-small cell lung CA, paroxysmal atrial fibrillation, depression, chronic anticoagulation with Eliquis, chronic adrenal insufficiency with steroid dependence, hypothyroidism and stomatitis. Elvin had a ischemic CVA in the distribution of the R MCA. He had been symptomatic for a few days and was brought to the ED at [facility] on 12/10/24. NC CT brain showed a hypodense region in the right parietal/occipital lobe. MRI of the brain showed right mid and posterior temporal ischemic stroke. MRA of the head and neck showed significant narrowing of the cavernous right internal carotid artery and the right middle cerebral artery. He was admitted to the hospitalist service. He was transferred to acute inpatient rehab on 12/15/2024 for 3 hours of therapy daily. He was started on Prednisolone 15 mg TID and stomatitis resolved. We have been tapering the dose slowly and at the time of DC he is on 7.5 mg TID. He initially did well with therapy and was making progress but on 12/26 he had a sudden change in his neuro exam. He developed increased cognitive deficit, increased left facial droop with drooling and inability to swallow liquids, new ptosis of the left eye and increased weakness of the left upper extremity and left lower extremity. A stat CT brain was ordered to rule out hemorrhagic transformation, especially since he chronically takes Eliquis. CT revealed no acute changes and specifically no intracerebral bleeding. It was felt that he likely had an extension of the original ischemic stroke. He had episodic improvement in neuro exam and then episodes where he would stare and not respond and would have increased neurologic deficit. We felt he could be having non-convulsive seizures. An EEG was ordered and he was started on Keppra 500 mg BID. He continued to have the episodes of decreased responsiveness and increased neurologic deficit but, then he would recover and be able to do therapy again. [facility] tele-neurology was consulted. An MRI of the brain showed evolving stroke per radiology. The neurologist wanted a CTA and it showed near occlusion of the M1 branch of the R MCA. Since he had waxing and waning neurologic deficit neurology recommended loading with 2 GM of IV Keppra and increasing PO Keppra to 750 mg BID. When we received the EEG report it showed no epileptiform activity but he was not having an episode at the time the EEG was done. Since 01/02/25 he has been steadily declining. He is unable to swallow thin liquids and they just drool out the left corner of the mouth. He now has visual field cuts of the Left lateral superior and inferior quadrants. He has increased left side neglect. He has gradually become less responsive. I discussed the changes with his 3 dtrs and they requested a hospice consult. On 01/03/25 he was dehydrated and he was orthostatic. His lab was stable but, he was unable to participate in any therapy. He denied pain, cephalgia, Palpitations and SOB. He appeared comfortable. I started him on IV fluids to try and perk him up so he could interact with his family and he had a good evening with family. He slept through the night. On 01/04 he is mostly non-verbal.....he will shake his head yes and no. His BP is better and he has better color in his face. I spoke with family and we discontinued all non-essential medications. He went into AF on 01/04 again and the HR was in the 100-110 range. He has been on Lanoxin for rate control. The Lanoxin level on 01/03/2025 was 0.71. He was unable to take his oral medications on the morning of 01/04/2025. His heart rate has increased into the 160-180 range in the past when he is in atrial fibrillation and he was given 0.25 mg of intravenous dig. The heart rate improved into the 70-85 range. He is on eyedrops for a Staph aureus conjunctivitis. This was started on 01/03/2025 and he has less redness and is no longer rubbing at his eyes. He is steroid dependent with adrenal insufficiency and I left him on Prednisolone. A hospice referral was made on 01/04/25 and he will be going to the in hospice unit. His daughters are all in agreement with this. Physical Exam Const Constitutional Narrative: Very sleep and non-verbal with me. He does not his head yes and no when I am asking him questions. He denies pain, SOB, cephalgia. Does not appear to have any discomfort. No restless and not fidgeting. Keeping his eyes closed today. Unable to take his oral meds this AM Neck supple Chest Chest: symmetrical chest wall rise Resp normal respiratory effort Resp Narrative: Lying flat in bed with no shortness of breath and no tachypnea. Lungs are clear anterior and lateral. He is not coughing. Respirations are not labored. There is no accessory muscle use. Cardio no rub and no gallops Cardio Narrative: He is in atrial fibrillation today. The heart rate is ranging from 100-110. After 0.25 mg of intravenous digoxin the heart rate decreased into the 70-85 range. GI normal to inspection, nondistended, normoactive bowel sounds, soft to palpation and non-tender GI Narrative: No guarding with palpation. Bladder does not feel distended. Extremity Extremity Narrative: Having some myoclonic jerks of the LE's but, no seizure activity. The jerks are mild. General Extremity: Negative for edema Skin Rashes: no rashes Neuro Neuro Narrative: Non-verbal. Left facial droop with drooling. Keeping his eyes closed. Occasional myoclonic jerks of the LE's only. Will not open his eyes. Weight / BMI Weight Weight: 143 lb 15.39 oz Body Mass Index (BMI) 23.2 ABG / Lab / Microbiology Data 01/03/25 05:20 01/03/25 05:20 Microbiology: Microbiology 01/02/25 16:00 Conjunctiva Gram Stain - Final 01/02/25 16:00 Conjunctiva Eye Culture - Final Staphylococcus aureus 01/02/25 16:00 Conjunctiva Anaerobic Culture - Preliminary 12/15/24 15:40 Other - Penile Miscellaneous Culture - Final Dermacoccus / kytococcus sp. Streptococcus constellatus pha 12/15/24 15:40 Other - Penile Gram Stain - Final 12/15/24 15:30 Discharge - Eye Gram Stain - Final 12/15/24 15:30 Discharge - Eye Eye Culture - Final Staphylococcus aureus 12/15/24 15:30 Discharge - Eye Anaerobic Culture - Final Cutibacterium acnes D/C Instructions DC O2, CPAP, BIPAP Needs Home O2 Discharge instructions: No Meaningful Use Info Meaningful Use Meaningful Use Diagnoses (Choose all that apply): Ischemic CVA CVA Therapy Assessed for PT,OT and/or ST?: Yes Ischemic Stroke Antithrombotic order at d/c?: No Reason antithrombotic not ordered: Hospice Dx of Atrial fib/flutter?: Yes Anticoagulant at discharge?: No Reason anticoagulant not ordered: Hospice Statin Dosing Therapy Reference: STATIN DOSE THERAPY REFERENCE: * Patients > 75 years receive moderate or high dose statin therapy. * Patients 75 years or YOUNGER should receive HIGH intensity statin dose unless contraindicated. You will be required to document reason for non-treatment if statin daily dose does not meet guidelines. HIGH DOSE STATIN THERAPY DAILY Atorvastatin > than or = to 40 mg Rosuvastatin > than or = to 20 mg Amlodipine + Atorvastatin > than or = to 2.5/40 mg Ezetimibe + Simvastatin 10/80 mg Simvastatin 80mg Statins at discharge?: No Reason Statin not ordered: Hospice Primary Dx Acute Ischemic CVA?: Yes IV thrombolytic ordered during stay?: No Reason IV thrombolytic not ordered: Procedure not Indicated Discharge Plan Admission Admit Date/Time: 12/15/24 14:02 Primary Reason for Your Visit: ischemic CVA Attending Provider: Nidhi Bradshaw Primary Care Provider: Lisandro Zaldivar Consulting Providers: Dean Ford; Christina Marks; Vaishnavi Granda; Nelida Olivarez; Lexie Palmer NP; Judith Perea Discharge Orders/Prescriptions Prescriptions: No Action mirtazapine 15 mg tablet 7.5 mg PO QHS levothyroxine 150 mcg tablet 150 mcg PO DAILY atorvastatin 40 mg tablet 40 mg PO QHS hydrocortisone 5 mg tablet 10 mg PO .am hydrocortisone 5 mg tablet 5 mg PO 1300 Rx Instructions: adrenal gland Eliquis 5 mg Tablet 5 mg PO BID 30 Days Qty: 60 2RF furosemide [Lasix] 20 mg tablet 20 mg PO DAILY 30 Days Qty: 30 0RF aspirin 81 mg Tablet,Chewable 81 mg PO BREAKFAST Qty: 0 0RF metoprolol succinate 25 mg Tablet Extended Release 24 Hr 25 mg PO BID Qty: 0 0RF nitrofurantoin monohyd/m-cryst 100 mg Capsule 100 mg PO BID 5 Days Qty: 0 0RF Biotene Dry Mouth Oral Rinse Mouthwash 15 ml mucous membrane 5X/DAY PRN (Reason: Dry Mouth) Qty: 0 0RF Ensure Plus High Protein 0.08 gram-1.5 kcal/mL Liquid 120 ml PO TIDCM Qty: 0 0RF (DME) Handicap Placard See Rx Instructions .Route .MEDSUPPLY Qty: 1 0RF Rx Instructions: As directed Referrals / Follow Up: Lisandro Zaldivar MD [Primary Care Provider] - Disposition Disposition (needs filled in before D/C Order can be placed): Home, Self Care Charges/Coding Visit Charges Inpatient E&M: 77463 Disch Hosp >30min
--- NOTE | 2025-01-04 14:08 | CASEMGMT ---
Social Work SW followed up with hospice nurse meeting with the 3 dtrs. Nurse is assessing for IPU and confident Dr will approve. Once official approval is given, a DC time will be set and transport scheduled. SW phoned [facility] to place on [address]. Blaire ARREGUIN
[2025-01-04 15:21] VITALS: BMI 23.2
[2025-01-04 18:37] VITALS: BP 113/56; PULSE 73; RESP 18; TEMP 36.7; O2SAT 97; BMI 23.2
--- NOTE | 2025-01-04 18:39 | NURSING ---
discharged [facility]. Report called to Adeline
== END 2025-01-04 18:40 | disposition hospice, inpatient (51) | DRG 56 ==
PROVIDERS: Admitting Provider Internal Medicine; PCP Family Medicine; Referring Provider Internal Medicine; Visit Provider Internal Medicine
DX: I69.320 Aphasia following cerebral infarction (principal); G93.6 Cerebral edema; C77.0 Secondary and unspecified malignant neoplasm of lymph nodes of head, face and neck; C77.1 Secondary and unspecified malignant neoplasm of intrathoracic lymph nodes; C34.90 Malignant neoplasm of unspecified part of unspecified bronchus or lung; E27.40 Unspecified adrenocortical insufficiency; N17.9 Acute kidney failure, unspecified; G40.901 Epilepsy, unspecified, not intractable, with status epilepticus; B95.62 Methicillin resistant Staphylococcus aureus infection as the cause of diseases classified elsewhere; Z66 Do not resuscitate; D63.0 Anemia in neoplastic disease; E03.9 Hypothyroidism, unspecified; I10 Essential (primary) hypertension; I69.322 Dysarthria following cerebral infarction; I48.0 Paroxysmal atrial fibrillation; E86.0 Dehydration; H10.9 Unspecified conjunctivitis; I25.10 Atherosclerotic heart disease of native coronary artery without angina pectoris; M48.02 Spinal stenosis, cervical region; E78.00 Pure hypercholesterolemia, unspecified; K12.1 Other forms of stomatitis; R13.12 Dysphagia, oropharyngeal phase; G47.00 Insomnia, unspecified; Z79.82 Long term (current) use of aspirin; Z79.890 Hormone replacement therapy; N30.90 Cystitis, unspecified without hematuria; Z87.891 Personal history of nicotine dependence; Z79.01 Long term (current) use of anticoagulants; Z79.899 Other long term (current) drug therapy; R29.810 Facial weakness
CPT/HCPCS: 36415; 70450; 70496; 70498; 70553; 80048; 80053; 80069; 80162; 81001; 82962; 83735; 84100; 85025; 85027; 87070; 87075; 87077; 87186; 87205; 92507; 92523; 92526; 92610; 93308; 95819; 97110; 97112; 97116; 97129; 97130; 97162; 97166; 97530; 97535; 97803; A9575; Q9967; A4216